=== PATIENT | male | born 1930 | race Caucasian/White ===

== ENCOUNTER → 2017-05-01 09:06 | Emergency (ER) | payer MEDICARE ==
[~2017-05-01 09:06] MED LIST: Acetaminophen TAB* 325 MG PO PRN; Ascorbic Acid TAB* 500 MG PO SCH; Aspirin EC Low Dose* 81 MG TAB.EC PO SCH; Atorvastatin* 40 MG TAB PO SCH; Cyanocobalamin TAB* 500 MCG PO SCH; Digoxin TAB* 0.125 MG PO SCH; Ferrous Sulfate TAB* 325 MG PO SCH; Finasteride TAB* 5 MG PO SCH; Folic Acid TAB* 1 MG PO SCH; Insulin GLARGINE(*) 1 UNITS UNIT SUBCUT SCH; Levothyroxine TAB* 25 MCG TAB PO SCH; Metoprolol Succinate XL TAB* 25 MG PO SCH; Multivitamins/Minerals TAB PO SCH; Omeprazole CAP* 20 MG PO SCH; Ondansetron INJ* 2 MG/ML VIAL IV PRN; Phytonadione INJ (Adult)* 10 MG/ML 1 ML AMP SUBCUT ONE; SODIUM CHLORIDE IV SCH; Spironolactone TAB* 25 MG PO SCH; Tamsulosin CAP* 0.4 MG PO SCH; VANCOMYCIN HCL IV SCH; Vancomycin Trough Check NOTE FOLLOW UP ONE; Vancomycin per Pharmacy* NOTE FOLLOW UP PRN; Vancomycin(*) 1,000 MG in NS 0.9% 250 ML* 250 ML IVPB ONE; Vancomycin(*) 1,500 MG in NS 0.9% 250 ML* 250 ML IVPB ONE; Vancomycin(*) 750 MG in NS 0.9% 250 ML* 250 ML IVPB SCH; [UNRECOGNIZED DRUG - OTHER] IV SCH
[2017-05-01 12:41] LABS: Red Blood Count 2.31 10^6/ul (4.0-5.4); Red Cell Distribution Width 24 % (10.5-15); White Blood Count 6.3 10^3/ul (3.5-10.8)
[2017-05-01 12:44] LABS: Hematocrit 23 % (42-52); Hemoglobin 7.5 g/dl (14.0-18.0); Mean Corpuscular HGB Conc 32 g/dl (31-36); Mean Corpuscular Hemoglobin 32 pg (27-31); Mean Corpuscular Volume 100 fL (80-94); Mean Platelet Volume 10 um3 (7.4-10.4)
[2017-05-01 12:45] LABS: Add Diff/Slide Review? Manual Diff Added; Comments Flag Yes
[2017-05-01 13:04] LABS: Albumin 2.4 g/dL (3.2-5.2); BUN/Creatinine Ratio 26.7 (8-20); Calcium 7.8 mg/dL (8.6-10.3); EGFR African American 90.1 (>60); Globulin 2.4 g/dL (2-4); Potassium 3.9 mmol/L (3.5-5.0); Total Bilirubin 0.7 mg/dL (0.2-1.0); Total Protein 4.8 g/dL (6.4-8.9)
[2017-05-01 13:16] LABS: Eosinophils % 3 % (0-6); Immature Granulocytes 2 % (0-9); Myelocytes % 2 % (0-1); Neutrophil % 71 % (38-83); Reactive Lymph % 2 % (0-6)
[2017-05-01 13:17] LABS: Hypochromasia 1+; Macrocytosis 1+
[2017-05-01 13:18] LABS: Polychromasia 1+
[2017-05-01 13:20] LABS: Add Path Review? YES
--- NOTE | 2017-05-01 14:21 | RAD ---
INDICATION: Hematuria COMPARISON: None TECHNIQUE: Real-time ultrasound examination of the bilateral kidneys and urinary bladder including grayscale and Doppler color flow analysis. FINDINGS: There is mild bilateral hydronephrosis worse on the right than the left. The right kidney measures 9.9 x 6.4 x 4.3 cm. At the lower pole there is an echogenic and shadowing 5 mm calcification. At the distal right ureter there is an echogenic and shadowing stone measuring just under 1 cm and greatest cephalocaudal dimension. The left kidney measures 10.2 x 5.4 x 4.2 cm. At the upper pole there is an anechoic and avascular cyst measuring 1.6 cm in greatest dimension. At the lower pole collecting system there is an 8 mm calcification. The fonseca of the urinary bladder are homogenous measuring 4 mm in thickness. Within the lumen of the bladder there is a heterogeneous echogenic mass measuring 7.2 x 3.9 x 7.6 cm exhibiting no vascularity. The Mansfield catheter balloon is incidentally noted. Normal ureteral jets are not visualized bilaterally. The mildly enlarged prostate measures 5.1 x 5.7 x 6.7 cm. IMPRESSION: 1. Mild, right worse than left, hydronephrosis. 2. At the distal right ureter there is a 1 cm calculus. 3. In the lumen of the bladder there is a mixed echogenicity avascular mass. A chronic blood clot as opposed to large calculus is favored as there is no shadowing characteristic of a renal stone. A neoplastic process is not completely excluded although there is no vascularity and the mass appears to be mobile. Direct visualization is advised.
[2017-05-01 16:36] VITALS: BP 103/48
--- NOTE | 2017-05-01 16:40 | ED ---
Saad Hollingsworth Alfonso scribed for Jason Patterson MD on 05/01/17 at 0939 . Complex/Multi-Sys Presentation - HPI Summary HPI Summary: This patient is an 87 year old M BIBA from [facility] from [facility] accompanied by son with a chief complaint of abdominal distention worse since a few hours ago. He does not have an urologist in [place]. The patient rates the pain 8/10 in severity. Symptoms aggravated by nothing. Symptoms alleviated by Mansfield catheter Patient reports urinary retention (nurse obtained 1.5 L of urine after Mansfield catheter), and hematuria. - History Of Current Complaint Time Seen by Provider: 05/01/17 09:14 Hx Obtained From: Patient Onset/Duration: Gradual Onset, Lasting Hours, Still Present Timing: Constant Severity Initially: Severe - 8/10 pain Aggravating Factor(s): nothing Alleviating Factor(s): Mansfield catheter Associated Signs And Symptoms: Positive: Other - urinary retention (nurse obtained 1.5 L of urine after Mansfield catheter), and hematuria. - Allergies/Home Medications Allergies/Adverse Reactions: Allergies Allergy/AdvReac Type Severity Reaction Status Date / Time No Known Allergies Allergy Verified 04/18/14 13:29 Home Medications: Home Medications Acetaminophen TAB* [Tylenol TAB*] 650 mg PO Q4H PRN 05/01/17 [History Confirmed 05/01/17] Atorvastatin* [Lipitor*] 40 mg PO QPM 05/01/17 [History Confirmed 05/01/17] Cyanocobalamin TAB* [Vitamin B12 TAB*] 1,000 mcg PO DAILY 05/01/17 [History Confirmed 05/01/17] Digoxin TAB* [Lanoxin TAB*] 0.125 mg PO DAILY 05/01/17 [History Confirmed ] Ferrous Sulfate TAB* 325 mg PO DAILY 05/01/17 [History Confirmed 05/01/17] Folic Acid TAB* [Folvite TAB*] 1 mg PO DAILY 05/01/17 [History Confirmed ] Insulin ASPART (NF) [Novolog (NF)] 1 - 10 units SUBCUT QID ACHS 05/01/17 [ History Confirmed 05/01/17] Insulin GLARGINE(*) [Lantus(*)] 12 units SUBCUT QAM 05/01/17 [History Confirmed 05/01/17] Levothyroxine TAB* [Synthroid TAB*] 25 mcg PO DAILY 05/01/17 [History Confirmed 05/01/17] Multivitamins/Minerals TAB* [Theragran/minerals TAB*] 1 tab PO DAILY 05/01/17 [ History Confirmed 05/01/17] Spironolactone TAB* [Aldactone TAB*] 12.5 mg PO DAILY 05/01/17 [History Confirmed 05/01/17] Tamsulosin CAP* [Flomax CAP*] 0.4 mg PO QPM 05/01/17 [History Confirmed 05/01/17 ] Vancomycin HCl in Sodium Chlor [Vancomycin Hydrochloride/ 750-0.9 mg/250Ml-%] 250 ml IV BID 05/01/17 [History Confirmed 05/01/17] Warfarin TAB(*) [Coumadin TAB(*)] 5 mg PO QPM 05/01/17 [History Confirmed ] PMH/Surg Hx/FS Hx/Imm Hx Previously Healthy: No - Sepsis due to strep pneumonia. UTI. Endocrine/Hematology History: Reports: Hx Diabetes, Hx Thyroid Disease - hypo, Hx Anemia Cardiovascular History: Reports: Hx Coronary Artery Disease, Hx Hypertension, Hx Valvular Heart Disease - Mitral valve prolapse History: Reports: Hx Benign Prostatic Hyperplasia Neurological History: Reports: Hx CVA - x2, Other Neuro Impairments/Disorders - Hemiplegia and hemiparesis Infectious Disease History: Denies: Traveled Outside the [place] in Last 30 Days - Family History Known Family History: Positive: Cardiac Disease - Social History Alcohol Use: None Hx Substance Use: No Substance Use Type: Reports: None Hx Tobacco Use: No Smoking Status (MU): Never Smoked Tobacco Review of Systems Negative: Fever Positive: Other - Abd distention Positive: hematuria, other - urinary retention All Other Systems Reviewed And Are Negative: Yes Physical Exam - Summary Physical Exam Summary: VITAL SIGNS: Reviewed. GENERAL: Patient is an elderly and nourished male who is lying comfortable in the stretcher. Patient is not in any acute respiratory distress. HEAD AND FACE: Normocephalic and atraumatic. EYES: PERRLA, EOMI x 2, No injected conjunctiva. EARS: Hearing grossly intact. Ear canals and tympanic membranes are WNL. MOUTH: Oropharynx within normal limits. NECK: Supple, trachea is midline, no adenopathy, no JVD. CHEST: Symmetric, no tenderness at palpation LUNGS: Clear to auscultation bilaterally. No wheezing or crackles. CVS: RRR, S1 and S2 present, no murmurs or gallops appreciated. ABDOMEN: Soft, non-tender. Distention, which resolved after Mansfield catheter was placed. Positive bowel sounds. No rebound no guarding, and no masses palpated. No abdominal bruit or pulsations. EXTREMITIES: FROM in all major joints, no edema, no cyanosis or clubbing. NEURO: Alert and oriented x 3. No acute neurological deficits. Speech is normal. SKIN: Dry and warm Triage Information Reviewed: Yes Vital Signs On Initial Exam: Initial Vitals Temp Pulse Resp BP Pulse Ox 98.1 F 82 16 103/56 99 05/01/17 09:37 05/01/17 09:37 05/01/17 09:37 05/01/17 09:37 05/01/17 09:37 Vital Signs Reviewed: Yes Diagnostics - Vital Signs Vital Signs Temp Pulse Resp BP Pulse Ox 05/01/17 16:35 98.1 F 81 16 103/48 99 05/01/17 14:55 79 16 114/51 98 05/01/17 12:09 82 16 111/52 99 05/01/17 09:37 98.1 F 82 16 103/56 99 - Laboratory Lab Results: Lab Results 05/01/17 05/01/17 05/01/17 Range/Units 09:57 10:41 12:28 WBC 6.3 (3.5-10.8) 10^3/ul RBC 2.31 L (4.0-5.4) 10^6/ul Hgb 7.5 L (14.0-18.0) g/dl Hct 23 L (42-52) % MCV 100 H (80-94) fL MCH 32 H (27-31) pg MCHC 32 (31-36) g/dl RDW 24 H (10.5-15) % Plt Count 253 (150-450) 10^3/ul MPV 10 (7.4-10.4) um3 Immature Gran % (Auto) 2 (0-9) % Absolute Neuts (auto) 4.6 (1.5-7.7) 10^3/ul Absolute Lymphs (auto) 1.4 (1.0-4.8) 10^3/ul Absolute Monos (auto) 0.1 (0-0.8) 10^3/ul Absolute Eos (auto) 0.2 (0-0.6) 10^3/ul Absolute Basos (auto) 0 (0-0.2) 10^3/ul Absolute Nucleated RBC Not Reportable Neutrophils % 71 (38-83) % Lymphocytes % 21 L (25-47) % Reactive Lymphs % 2 (0-6) % Monocytes % 1 (0-13) % Eosinophils % 3 (0-6) % Myelocytes % 2 H (0-1) % Normal RBC Morphology Not Reportable Polychromasia 1+ Hypochromasia 1+ Macrocytosis 1+ Elliptocytes 1+ Hem Pathologist Commnt Pending INR (Anticoag Therapy) (0.89-1.11) Sodium (133-145) mmol/L Potassium (3.5-5.0) mmol/L Chloride (101-111) mmol/L Carbon Dioxide (22-32) mmol/L Anion Gap (2-11) mmol/L BUN (6-24) mg/dL Creatinine (0.67-1.17) mg/dL Est GFR ( Amer) (>60) Est GFR (Non-Af Amer) (>60) BUN/Creatinine Ratio (8-20) Glucose (70-100) mg/dL Calcium (8.6-10.3) mg/dL Total Bilirubin (0.2-1.0) mg/dL AST (13-39) U/L ALT (7-52) U/L Alkaline Phosphatase (34-104) U/L Total Protein (6.4-8.9) g/dL Albumin (3.2-5.2) g/dL Globulin (2-4) g/dL Albumin/Globulin Ratio (1-3) Urine Color Red A Red A Urine Appearance Bloody Bloody Urine pH (5-9) Ur Specific Willard 1.016 (1.010-1.030) Urine Protein (Negative) Urine Ketones (Negative) Urine Blood (Negative) Urine Nitrate (Negative) Urine Bilirubin (Negative) Urine Urobilinogen (Negative) Ur Leukocyte Esterase (Negative) Urine WBC (Auto) Trace(0-5/hpf) (Absent) Urine RBC (Auto) 3+(>10/hpf) H (Absent) Urine Glucose (Negative) Urine Ascorbic Acid (Negative) Blood Type Antibody Screen 05/01/17 05/01/17 05/01/17 Range/Units 12:28 12:28 12:28 WBC (3.5-10.8) 10^3/ul RBC (4.0-5.4) 10^6/ul Hgb (14.0-18.0) g/dl Hct (42-52) % MCV (80-94) fL MCH (27-31) pg MCHC (31-36) g/dl RDW (10.5-15) % Plt Count (150-450) 10^3/ul MPV (7.4-10.4) um3 Immature Gran % (Auto) (0-9) % Absolute Neuts (auto) (1.5-7.7) 10^3/ul Absolute Lymphs (auto) (1.0-4.8) 10^3/ul Absolute Monos (auto) (0-0.8) 10^3/ul Absolute Eos (auto) (0-0.6) 10^3/ul Absolute Basos (auto) (0-0.2) 10^3/ul Absolute Nucleated RBC Neutrophils % (38-83) % Lymphocytes % (25-47) % Reactive Lymphs % (0-6) % Monocytes % (0-13) % Eosinophils % (0-6) % Myelocytes % (0-1) % Normal RBC Morphology Polychromasia Hypochromasia Macrocytosis Elliptocytes Hem Pathologist Commnt INR (Anticoag Therapy) 5.78 H* (0.89-1.11) Sodium 133 (133-145) mmol/L Potassium 3.9 (3.5-5.0) mmol/L Chloride 102 (101-111) mmol/L Carbon Dioxide 28 (22-32) mmol/L Anion Gap 3 (2-11) mmol/L BUN 27 H (6-24) mg/dL Creatinine 1.01 (0.67-1.17) mg/dL Est GFR ( Amer) 90.1 (>60) Est GFR (Non-Af Amer) 70.0 (>60) BUN/Creatinine Ratio 26.7 H (8-20) Glucose 107 H (70-100) mg/dL Calcium 7.8 L (8.6-10.3) mg/dL Total Bilirubin 0.70 (0.2-1.0) mg/dL AST 24 (13-39) U/L ALT 23 (7-52) U/L Alkaline Phosphatase 58 (34-104) U/L Total Protein 4.8 L (6.4-8.9) g/dL Albumin 2.4 L (3.2-5.2) g/dL Globulin 2.4 (2-4) g/dL Albumin/Globulin Ratio 1.0 (1-3) Urine Color Urine Appearance Urine pH (5-9) Ur Specific Willard (1.010-1.030) Urine Protein (Negative) Urine Ketones (Negative) Urine Blood (Negative) Urine Nitrate (Negative) Urine Bilirubin (Negative) Urine Urobilinogen (Negative) Ur Leukocyte Esterase (Negative) Urine WBC (Auto) (Absent) Urine RBC (Auto) (Absent) Urine Glucose (Negative) Urine Ascorbic Acid (Negative) Blood Type O Negative Antibody Screen Negative Result Diagrams: 05/01/17 12:28 05/01/17 12:28 Lab Statement: Any lab studies that have been ordered have been reviewed, and results considered in the medical decision making process. - Additional Comments Diagnostic Additional Comments: US Abdomen / Bladder reveals, per radiologist, 1. Mild, right worse than left, hydronephrosis. 2. At the distal right ureter there is a 1 cm calculus. 3. In the lumen of the bladder there is a mixed echogenicity avascular mass. A chronic blood clot as opposed to large calculus is favored as there is no shadowing characteristic of a renal stone. A neoplastic process is not completely excluded although there is no vascularity and the mass appears to be mobile. Direct visualization is advised. ED physician has reviewed this radiology report and agrees. Complex Multi-Symp Course/Dx Assessment/Plan: This patient is an 87 year old M BIBA from [facility] from [facility] accompanied by son with a chief complaint of abdominal distention worse since a few hours ago. He does not have an urologist in [place]. The patient rates the pain 8/10 in severity. Symptoms aggravated by nothing. Symptoms alleviated by Mansfield catheter Patient reports urinary retention (nurse obtained 1.5 L of urine after Mansfield catheter), and hematuria. US Abdomen / Bladder reveals, per radiologist, 1. Mild, right worse than left, hydronephrosis. 2. At the distal right ureter there is a 1 cm calculus. 3. In the lumen of the bladder there is a mixed echogenicity avascular mass. A chronic blood clot as opposed to large calculus is favored as there is no shadowing characteristic of a renal stone. A neoplastic process is not completely excluded although there is no vascularity and the mass appears to be mobile. Direct visualization is advised. ED physician has reviewed this radiology report and agrees. Consulted Dr. 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 Consulted Dr. Robb (hospitalist) at 1420 and she agrees to admit. Test results show anemia, and INR increased for which he was given vitamin K. Urine unable to test due to gerald hematuria. Dr. Robb (hospitalist) who recommends to not give FAPs due to a CVA one month ago. Also, we discussed the case with Dr. Beavers after the US and he recommends the patient is at increase risk therefore he is unable to treat at this facility, therefore, he recommends for the patient to be transferred to [facility]. I Consulted Dr. Bronson ([facility]) at 1616 who agrees to accept the patient for transfer. The patient is hemodynamically stable, alert and oriented x3. He was given 1 dose of his vancomycin infusion. The patient is agreeable with this plan. - Diagnoses Provider Diagnoses: Hematuria in coumadin, Symptomatic anemia, Ureterolithiasis, Urinary retention - Physician Notifications Discussed Care Of Patient With: Al Ac Time Discussed With Above Provider: 12:02 Instructed by Provider To: Other - Consulted Dr. Ac (urologist) at 1202 regarding the patients case and he will consult. Consulted Dr. Robb ( hospitalist) at 1420 and she agrees to admit. Consulted Dr. Bronson ([facility]) at 1616 who agrees to accept the patient for transfer. Discharge - Discharge Plan Condition: Stable Disposition: TRANS HIGHER LVL OF CARE FAC Referrals: Kian Jimenez MD [Primary Care Provider] - Al Ac MD [Medical Doctor] - The documentation as recorded by the Saad abdul Alfonso accurately reflects the service I personally performed and the decisions made by , Jason Patterson MD.
--- NOTE | 2017-05-01 20:20 | HP ---
CC: Dr. Kian Jimenez; Raven Jones MD HISTORY AND PHYSICAL: DATE OF ADMISSION: 05/01/17 TIME OF EVALUATION: 2:20 p.m. PRIMARY CARE PROVIDER: Dr. Kian Jimenez. CHIEF COMPLAINT: Abdominal pain. HISTORY OF PRESENT ILLNESS: Mr. Concepcion is an 87-year-old male with a somewhat complex past medical history that includes type 2 diabetes, presumed atrial fibrillation, recent CVA, recent septicemia due to Streptococcus pneumoniae, BPH , anemia, hypothyroidism, mitral valve prolapse who was referred to the emergency room due to abdominal pain. The patient's history goes back to early March when he was admitted to [facility]. He had urinary retention, required a Mansfield catheter and was discharged to their rehab. He was transferred back to the hospital where he was diagnosed with CVA and also septicemia. Records are not available at this time and the history is obtained from the patient and his son-in-law at bedside. They were already in the process of moving the patient from [facility] to [facility] in [place] as his had dementia and had recently moved to that facility, and as the patient became ill he was not able to provide the care he usually provided to her. He initially went to rehab at [place], but family decided to transfer him to rehab at [facility], so he could be closer to his . He has been at [facility] for 2 weeks and he states that he was doing well. His Mansfield catheter was removed and initially he had no issues with his urine, but yesterday he noticed that he was having difficulty urinating and today he was unable to void and developed significant abdominal pain. In the emergency room , a Mansfield catheter was placed and 1.5 L of urine with blood and clots was drained. The patient states significant relief after the Mansfield catheter was placed and his only complaint at this time is hunger. PAST MEDICAL HISTORY: 1. CVA. 2. Recent episode of sepsis secondary to Streptococcus pneumoniae. 3. Urinary tract infection. 4. Anemia. 5. Hypothyroidism. 6. Type 2 diabetes. 7. Mitral valve prolapse. 8. BPH. MEDICATIONS: 1. Acetaminophen 650 mg p.o. q.4 hours p.r.n. pain or fever. 2. Ascorbic acid 500 mg p.o. daily. 3. Aspirin 81 mg p.o. daily. 4. Atorvastatin 40 mg p.o. q.p.m. 5. Cyanocobalamin 1000 mcg p.o. daily. 6. Digoxin 0.125 mg p.o. daily. 7. Ferrous sulfate 325 mg p.o. daily. 8. Finasteride 5 mg p.o. daily. 9. Folic acid 1 mg p.o. daily. 10. Insulin aspart sliding scale 1 to 10 units subcutaneously 4 times a day a.c., h.s. 11. Lantus 12 units subcutaneously q.a.m. 12. Levothyroxine 25 mcg p.o. daily. 13. Metoprolol succinate 25 mg p.o. daily. 14. Multivitamin 1 tablet p.o. daily. 15. Pantoprazole 40 mg p.o. at bedtime. 16. Spironolactone 12.5 mg p.o. daily. 17. Tamsulosin 0.4 mg p.o. at bedtime. 18. Vancomycin 750 mg IV q.12 hours. 19. Warfarin 5 mg p.o. q.p.m. ALLERGIES: No known drug allergies. FAMILY HISTORY: Reviewed and noncontributory. SOCIAL HISTORY: No history of tobacco, alcohol, or drug use. Surrogate decision maker is his son, Gabriel Concepcion; phone number is [phone]. REVIEW OF SYSTEMS: A 14-point review of systems was performed and all the pertinent negative and positive findings are in the HPI. PHYSICAL EXAMINATION GENERAL: The patient is an elderly male lying in the ER stretcher, in no acute distress. VITAL SIGNS: Temperature 98.1, heart rate is 82, respiratory rate 16, oxygen saturation is 99% on room air, blood pressure is 111/52. HEENT: Pupils are equal. Moist mucous membranes. CHEST: Breath sounds present bilaterally with no added sounds. CVS: Normal S1, S2. Regular rate and rhythm. ABDOMEN: Soft, nontender, and nondistended. Bowel sounds are present. EXTREMITIES: No edema. NEURO: He is alert, oriented x3 with right hemiparesis. LABORATORY AND IMAGING DATA: The patient had a CBC that showed a WBC of 6.3, hemoglobin of 7.5, hematocrit of 23, platelets of 253,000 with 71% neutrophils. INR is 5.7. Chemistry showed sodium of 133, potassium of 3.9, chloride of 102, bicarb of 28, BUN of 27, creatinine of 1, glucose of 107 with calcium of 7.8. LFTs are normal. Urinalysis showed hematuria. Abdomen and bladder ultrasound showed mild right worse than left hydronephrosis. At the distal right ureter there is a 1 cm calculus. In the lumen of the bladder there is a mixed echogenicity avascular mass. A chronic blood clot as opposed to large calculus is favored as there is no shadowing characteristic of a renal stone. A neoplastic process is not completely excluded , although there is no vascularity and the mass appears to be mobile. ASSESSMENT AND PLAN: Mr. Johnston is an 87-year-old male with a past medical history of recent cerebrovascular accident, sepsis due to streptococcus pneumoniae, anemia, hypothyroidism, type 2 diabetes, mitral valve prolapse, benign prostatic hyperplasia that presented to the emergency room with complaints of abdominal pain, found to have urinary retention and hematuria. 1. Urinary retention/hematuria. Likely secondary to benign prostatic hyperplasia and supratherapeutic INR. The patient will be admitted as observation to the medical floor. For now, he is going to receive vitamin K and we are going to try to keep his INR between 2 and 3. I am going to discuss the case with Urology, but unless an emergency, I do not think a surgical procedure should be performed at this time due to his recent cerebrovascular accident. I am going to obtain records from [facility] to clarify exactly the timeline of his cerebrovascular accident, arrhythmia, and other findings before deeming the patient optimized for surgery. 2. Anemia. I suspect acute blood loss and suspect there is a component of blood loss. If the patient drops below a hemoglobin of 7, we will transfuse him , but at this point I believe we can just monitor his H and H. 3. Type 2 diabetes. We will check his fingersticks a.c./ h.s. and continue Lantus and Lispro sliding scale. 4. Benign prostatic hyperplasia. We will continue finasteride. 5. History of recent cerebrovascular accident. We will continue his aspirin, atorvastatin for now. Hold warfarin, but plan to resume it as soon as his INR is between 2 and 3. 6. History of recent septicemia. We will continue vancomycin as prescribed. 7. Hypothyroidism. We will continue levothyroxine. 8. DVT prophylaxis. Pharmacological prophylaxis is contraindicating in the setting of bleeding and supratherapeutic INR. The patient will have SCDs. 9. Code status is DNR. TIME SPENT: Approximately 70 minutes were spent with the patient and family interview, medical records review, physical examination to complete this admission; more than half of this time spent [id number] with the patient and coordination of care. [id number]/[facility] #: [id number] MTDD
--- NOTE | 2017-05-01 20:36 | CONS ---
CONSULTATION REPORT: DATE: 05/01/17 - EMERGENCY DEPT ADDENDUM: After reviewing the patient's abdomen ultrasound with Urology (Dr. Ac), decision was made that the best course of care for this patient would be transfer to a tertiary center. The patient's history started with a UTI and there is suspicion that his stone is likely playing a role on his septicemia. Unfortunately, records from [facility] are still not yet available and now that his ultrasound showed this distal right ureter 1-cm calculus with hydronephrosis, Dr. Ac recommends surgery. Also, he has this bladder lesion that could represent only a blood clot, but could also be a tumor. The major concern is that the patient had recent CVA and we will prefer not to stop his anticoagulation, but in the setting of urgency like this, this may need to be discontinued. His INR reverted with FFPs and surgical procedure pursued. Dr. Ac feels that the patient would be a very high risk candidate for procedure in this facility and recommends transfer to a tertiary center. These recommendations were relayed to the emergency room provider, Dr. Pattersno, who will make arrangements for transfer. The patient and his son-in-law were updated at bedside. [id number]/[facility] #: [id number] [facility] HOSPITALGrace
== END | disposition short-term general hospital (02) ==
LOC: ED 09:06 → MED 14:21 → UNDOADMOB 14:21
DX: N13.2 Hydronephrosis with renal and ureteral calculous obstruction (principal); R33.9 Retention of urine, unspecified; R31.9 Hematuria, unspecified; D64.9 Anemia, unspecified; Z87.440 Personal history of urinary (tract) infections; E11.9 Type 2 diabetes mellitus without complications; Z79.4 Long term (current) use of insulin; E03.9 Hypothyroidism, unspecified; I25.10 Atherosclerotic heart disease of native coronary artery without angina pectoris; I10 Essential (primary) hypertension; I34.1 Nonrheumatic mitral (valve) prolapse; Z79.01 Long term (current) use of anticoagulants; N40.0 Benign prostatic hyperplasia without lower urinary tract symptoms; Z86.73 Personal history of transient ischemic attack (TIA), and cerebral infarction without residual deficits
CPT/HCPCS: 36415; 51702; 76770; 80053; 81003; 85025; 85060; 85610; 86850; 86900; 86901; 99284; J3370; J3430

== ENCOUNTER 2017-07-11 09:17 | Inpatient (IN) | payer MEDICARE, BC ==
[2017-07-11 10:30] LABS: Hematocrit 29 % (42-52); Hemoglobin 9.2 g/dl (14.0-18.0); Mean Corpuscular HGB Conc 32 g/dl (31-36); Mean Corpuscular Hemoglobin 31 pg (27-31); Mean Corpuscular Volume 96 fL (80-94); Mean Platelet Volume 10 um3 (7.4-10.4); Platelet Count 210 10^3/ul (150-450); Red Blood Count 2.98 10^6/ul (4.0-5.4); Red Cell Distribution Width 22 % (10.5-15); White Blood Count 13.7 10^3/ul (3.5-10.8)
[2017-07-11 10:47] LABS: EGFR Non-African American 52.3 (>60)
[2017-07-11 10:53] LABS: ABS Basophils 0.1 10^3/ul (0-0.2); ABS Eosinophils 0 10^3/ul (0-0.6); ABS Lymphocytes 0.8 10^3/ul (1.0-4.8); ABS Monocytes 0.2 10^3/ul (0-0.8); ABS Neutrophils 12.7 10^3/ul (1.5-7.7); ABS Nucleated RBC 0 10^3/ul; Eosinophil % 0 % (0-6); Lymphocyte % 5.8 % (25-47); Nucleated Red Blood Cells % 0.2
--- NOTE | 2017-07-11 10:54 | ED ---
HPI Febrile Illness - HPI Summary HPI Summary: 87 male DOREEN, resident from [place], sent in due to patient "not acting himself" being confused at times and not eating his breakfast this morning. Also due to finding of blood in urine/depends upon changing and fever of 100.9F Patient is without complaint. Per [facility] tin worker staff and EMS patient was not as oriented as he typically is. No other complaints at this time. PAtient is without complaint when asked. Does admit to a cough with some production at times. Although altered and poor historian. PMHx significant for anticaogulation , a fib, CVA, HTN, GERD, hematuria, anemia and type II diabetes. Step daughter later arrived and informed us that patient had a prostate surgery back in April of 2017 after being transferred to [facility], and also was informed later on by nursing staff patient fell when trying to pull his pants up while in the bathroom however was alert oriented and denied injuries. His "not acting himself, lethargy and fever" began hours after fall. Patient is taking Eliquis. - History of Current Complaint Chief Complaint: EDGeneral Time Seen by Provider: 07/11/17 09:41 Hx Obtained From: Patient, Family/Broadcast Transmitter Operator - step daughter, nursing staff at [facility], EMS Hx From Patient Unobtainable Due To: Altered Mental Status Onset/Duration: Started Hours Ago Time of Onset: 09:00 Timing: Constant Current Severity: None Pain Intensity: 0 Pain Scale Used: 0-10 Numeric Aggravating Factors: Nothing Alleviating Factors: Nothing Associated Signs and Symptoms: Altered Mental Status, Cough - Allergy/Home Medications Allergies/Adverse Reactions: Allergies Allergy/AdvReac Type Severity Reaction Status Date / Time No Known Allergies Allergy Verified 04/18/14 13:29 Home Medications: Home Medications Apixaban* [Eliquis*] 2.5 mg PO BID 07/11/17 [History Confirmed 07/11/17] Artificial Tears* 15 ML BTL [Polyvinyl Alcohol 1.4% OPTH*] 1 drop BOTH EYES TID PRN 07/11/17 [History Confirmed 07/11/17] Atorvastatin* [Lipitor*] 10 mg PO BEDTIME 07/11/17 [History Confirmed 07/11/17] Cetirizine* [ZyrTEC 10 MG TAB*] 10 mg PO DAILY 07/11/17 [History Confirmed 07/11] Chlorhexidine MOUTHWASH 0.12%* [Peridex Mouth Wash 0.12%*] 15 ml SWISH SPIT BID 07/11/17 [History Confirmed 07/11/17] Gabapentin CAP(*) [Neurontin 100 mg CAP(*)] 100 mg PO BID 07/11/17 [History Confirmed 07/11/17] Insulin Detemir (NF) [Levemir (NF)] 12 unit SUBCUT QAM 07/11/17 [History Confirmed 07/11/17] Levothyroxine TAB* [Synthroid TAB*] 100 mcg PO DAILY 07/11/17 [History Confirmed 07/11/17] Melatonin (NF) 1 mg PO BEDTIME 07/11/17 [History Confirmed 07/11/17] Omeprazole CAP* [Prilosec CAP* 20 MG] 20 mg PO DAILY 07/11/17 [History Confirmed 07/11/17] metFORMIN* [Glucophage 500 MG TAB *] 500 mg PO DAILY 07/11/17 [History Confirmed 07/11/17] PMH/Surg Hx/FS Hx/Imm Hx Endocrine/Hematology History: Reports: Hx Anticoagulant Therapy - eliquis, Hx Diabetes, Hx Thyroid Disease - hypo, Hx Anemia Cardiovascular History: Reports: Hx Atrial Fibrillation, Hx Coronary Artery Disease, Hx Hypertension, Hx Valvular Heart Disease - Mitral valve prolapse History: Reports: Hx Benign Prostatic Hyperplasia Neurological History: Reports: Hx CVA - x2, Other Neuro Impairments/Disorders - Hemiplegia and hemiparesis - Surgical History Surgery Procedure, Year, and Place: prostate, cardiac, bladder stent 2016 - Immunization History Immunizations Up to Date: Yes Infectious Disease History: No Infectious Disease History: Denies: Traveled Outside the [place] in Last 30 Days - Family History Known Family History: Positive: Cardiac Disease - Social History Alcohol Use: None Hx Substance Use: No Substance Use Type: Reports: None Hx Tobacco Use: No Smoking Status (MU): Never Smoked Tobacco Review of Systems - ROS Summary Review of Systems Summary: obtained per caretakers/EMS Positive: Fever Cardiovascular: Negative Respiratory: Negative Gastrointestinal: Negative Positive: hematuria Neurological: Other - lethargy All Other Systems Reviewed And Are Negative: Yes Physical Exam Triage Information Reviewed: Yes Vital Signs On Initial Exam: Initial Vitals Temp Pulse Resp BP Pulse Ox 100.7 F 107 22 88/39 98 07/11/17 09:17 07/11/17 09:17 07/11/17 09:17 07/11/17 09:17 07/11/17 09:17 fever, tachycardia, hypotension noted given fluids, tylenol and rocephin BP improved to 110/92, 107/42, temp 99F and later became hypotensive and febrile again Vital Signs Reviewed: Yes Completion Of Physical Exam Limited Due To: Altered Mental Status - alert and oriented x 2 Appearance: Positive: Well-Appearing, No Pain Distress, Well-Nourished Skin: Positive: Warm - to touch, Skin Color Reflects Adequate Perfusion, Dry, Other - bruising, old, noted to abdomen from previous heparin injections after surgery a few months ago (per patient). Negative: Cold, Cyanosis @, Jaundiced, Erythema @ Head/Face: Positive: Normal Head/Face Inspection. Negative: Scalp - no hematoma Eyes: Positive: Normal, EOMI, USHA, Conjunctiva Clear ENT: Positive: Normal ENT inspection, Hearing grossly normal, Pharynx normal Neck: Positive: Supple, Nontender Respiratory/Lung Sounds: Positive: Clear to Auscultation, Breath Sounds Present. Negative: Rales, Rhonchi, Wheezes Cardiovascular: Positive: Normal, RRR, Pulses are Symmetrical in both Upper and Lower Extremities. Negative: Murmur, Rub Abdomen Description: Positive: Nontender, No Organomegaly. Negative: Soft - firm to palpation, Bruit, Distended, Guarding Male Genital Exam: Positive: normal genitalia - other than discharge and erythema surrounding urethral orifice of uncircumsized penis, other - rectal exam preformed and normal upon examination. Negative: scrotum tenderness (R), scrotum tenderness (L), testicular tenderness (R), testicular tenderness (L) Musculoskeletal: Positive: Normal, Strength/ROM Intact Neurological: Positive: Normal, Sensory/Motor Intact. Negative: Alert, Oriented to Person Place, Time - alert, oriented to person, place (x2) - Norm Coma Scale Best Eye Response: 4 - Spontaneous Best Motor Response: 6 - Obeys Commands Best Verbal Response: 5 - Oriented Coma Scale Total: 15 Diagnostics - Vital Signs Vital Signs Temp Pulse Resp BP Pulse Ox 07/11/17 09:17 100.7 F 107 22 88/39 98 - Laboratory Lab Results: Lab Results 01/07/11/17 07/11/17 Range/Units 10:20 10:20 10:20 WBC 13.7 H (3.5-10.8) 10^3/ul RBC 2.98 L (4.0-5.4) 10^6/ul Hgb 9.2 L (14.0-18.0) g/dl Hct 29 L (42-52) % MCV 96 H (80-94) fL MCH 31 (27-31) pg MCHC 32 (31-36) g/dl RDW 22 H (10.5-15) % Plt Count 210 (150-450) 10^3/ul MPV 10 (7.4-10.4) um3 Neut % (Auto) Pending Lymph % (Auto) Pending Childress % (Auto) Pending Eos % (Auto) Pending Baso % (Auto) Pending Absolute Neuts (auto) Pending Absolute Lymphs (auto) Pending Absolute Monos (auto) Pending Absolute Eos (auto) Pending Absolute Basos (auto) Pending Absolute Nucleated RBC Pending Nucleated RBC % Pending Sodium 136 (133-145) mmol/L Potassium 4.3 (3.5-5.0) mmol/L Chloride 104 (101-111) mmol/L Carbon Dioxide 25 (22-32) mmol/L Anion Gap 7 (2-11) mmol/L BUN 32 H (6-24) mg/dL Creatinine 1.30 H (0.67-1.17) mg/dL Est GFR ( Amer) 67.3 (>60) Est GFR (Non-Af Amer) 52.3 (>60) BUN/Creatinine Ratio 24.6 H (8-20) Glucose 198 H (70-100) mg/dL Lactic Acid 2.1 H* (0.5-2.0) mmol/L Calcium 8.7 (8.6-10.3) mg/dL Total Bilirubin 0.70 (0.2-1.0) mg/dL AST 34 (13-39) U/L ALT 26 (7-52) U/L Alkaline Phosphatase 84 (34-104) U/L Troponin I Pending Total Protein 6.4 (6.4-8.9) g/dL Albumin 2.9 L (3.2-5.2) g/dL Globulin 3.5 (2-4) g/dL Albumin/Globulin Ratio 0.8 L (1-3) Result Diagrams: 07/11/17 10:20 07/11/17 10:20 Lab Statement: Any lab studies that have been ordered have been reviewed, and results considered in the medical decision making process. - Radiology chest Xray Interpretation: No Acute Changes - NO ACTIVE CARDIOPULMONARY DISEASE. Radiology Interpretation Completed By: Radiologist - and myself - CT brain CT Interpretation: No Acute Changes - 1. NO ACUTE INTRACRANIAL PATHOLOGY. 2. DIFFUSE INVOLUTIONAL CHANGE WITH CHRONIC SMALL VESSEL ISCHEMIC CHANGES. 3. ENCEPHALOMALACIA CONSISTENT WITH REMOTE LEFT FRONTAL INFARCT. 4. AIR-FLUID LEVEL WITHIN the right maxillary sinus. In the correct clinical setting this may represent acute sinusitis CT Interpretation Completed By: Radiologist abd/pelvis CT Interpretation: Positive (See Comments) - 1. There are multiple bilateral punctate calcifications in the collecting systems. There is a mild degree of right-sided hydronephrosis in the presence of a right ureteral stent and a coarse calcification in the distal right ureter measuring 11 mm in greatest dimension. 2. Urinary bladder is mostly decompressed in the presence of a Mansfield catheter making the fonseca appear thickened. There is air in the nondependent lumen of the bladder likely related to recent instrumentation. 3. Images of the lung bases could represent early changes of interstitial lung disease or pulmonary edema. 3. Additional chronic and degenerative changes described in the body the report. CT Interpretation Completed By: Radiologist - EKG EKG Cardiac Rate: NL EKG Rhythm: Sinus Tachycardia ST Segment: Normal - minimal ST elevation lateral leads Ectopy: None EKG Interpretation: borderline repol abnormality, sinus tachy, no STMEI, RAD EKG Comparison: No Significant Change Re-Evaluation - Re-Evaluation First Eval Re-Evaluation Time: 12:00 Change: Worse - hypotensive, febrile, waiting on second liter of fluid and will give more tylenol. spoke with Dr Rivera about + stool occult blood for possible GI bleed and Dr Patterson about case Second Eval Re-Evaluation Time: 13:30 Change: Worse - still hypotensive, fever improved. spoke with Dr Jones who wanted a renal ultrasound and will await admission pending results in case of urology consult due to previous visit and history of transfer due to complications, given rochephin for urosepsis, spoke with Dr Patterson who took over case Course/Dx - Course Course Of Treatment: labs, urinalysis obtained, given 2L fluids, rocephin and tylenol. closely monitored. chest xray obtained and negative for acute cardiopulmonary disease. stool occult blood obtained due to patient taking eliquis and positive, Dr Rivera was consulted who agreed to consult patient. Spoke with Dr Patterson about case. Patient was without complaint and altered however alert and responsive throughout stay. Labs and urinalysis was delayed due to difficulty with initiating IV access after multiple attempts by different nursing staff. Elevated WBC with left shift, elevated lactic acid, anemia and elevated glucose, troponin. Urinalysis significant for 3+ blood and UTI. EKG obtained, sinus tachycardia @ 103bpm, no stemi. Spoke with Dr Jones for admission for urosepsis who requested renal US due to extensive history of complications previously seen for. Mansfield catheter was placed. Once additional history was given by patient's step daughter and later again by daughter Ct Brain obtained as patient did have a fall and is on eliquis. Patient became more hypotensive and afebrile and urosepsis protocol was initiated, at which this time Dr Patterson took over the case Ct abd/pelvis and US obtained. - Febrile Illness Differential Diagnoses: Bacteremia, Pyelonephritis, Other: - urosepsis, UTI, Gi bleed - Diagnoses Provider Diagnoses: GI bleed, UTI (urinary tract infection), Sepsis - Provider Notifications Discussed Care Of Patient With: Dr Patterson, Dr Jones, Dr Rivera - Dr Patterson took over the case, Robert Rivera consult Time Discussed With Above Provider: 11:50 Instructed by Provider To: Admit As Inpatient Discharge - Discharge Plan Condition: Stable Disposition: OTHER Discharge Disposition Comment: Dr Patterson took over case, signed out to Dr Patterson Referrals: Kian Jimenez MD [Primary Care Provider] -
--- NOTE | 2017-07-11 11:08 | RAD ---
HISTORY: Febrile, rule out infection COMPARISONS: None VIEWS: 2: Frontal and lateral views of the chest. FINDINGS: CARDIOMEDIASTINAL SILHOUETTE: A prosthetic heart valve is noted. ASIA: The asia are normal. PLEURA: The costophrenic angles are sharp. No pleural abnormalities are noted. LUNG PARENCHYMA: The lungs are clear. ABDOMEN: The upper abdomen is clear. There is no subphrenic gas. BONES AND SOFT TISSUES: The patient is status post median sternotomy. OTHER: None. IMPRESSION: NO ACTIVE CARDIOPULMONARY DISEASE.
[2017-07-11] MEDS ORDERED: Acetaminophen TAB* 325 MG PO ONE ×2 (11:15→13:44)
[2017-07-11 11:18] LABS: INR 1.46 (0.77-1.02)
[2017-07-11 12:03] LABS: Urine Appearance Turbid; Urine Blood 3+ (Negative); Urine Color Yellow; Urine Ketones Negative (Negative); Urine Protein 2+(100 mg/dL) (Negative); Urine Specific Gravity 1.012 (1.010-1.030); Urine Urobilinogen Negative (Negative)
[2017-07-11] MEDS: NS 0.9% 1000 ML* 2,000 ML IV ONE ×2 (12:35→13:39)
[2017-07-11] MEDS ORDERED: cefTRIAXone(*) 1 GM in NS 0.9% 50 ML* 50 ML IVPB ONE (13:22)
--- NOTE | 2017-07-11 15:49 | RAD ---
HISTORY: Syncope COMPARISONS: None TECHNIQUE: Multiple contiguous axial CT scans were obtained of the head without intravenous contrast. FINDINGS: HEMORRHAGE/INFARCT: There is no hemorrhage or acute infarct. MASSES/SHIFT: There is no mass or shift. EXTRA-AXIAL SPACES: There are no extra-axial fluid collections. SULCI AND VENTRICLES: There is diffuse and proportional enlargement of the sulci and ventricles. CEREBRUM: There is hypoattenuation of the periventricular and subcortical white matter. There is left frontal encephalomalacia consistent with remote infarct. BRAINSTEM: There are no focal parenchymal abnormalities. CEREBELLUM: There are no focal parenchymal abnormalities. VESSELS: There is calcification of the cavernous segments of the internal carotid arteries bilaterally. PARANASAL SINUSES: There is air-fluid level within the right maxillary sinus. ORBITS: The orbits are unremarkable. BONES AND SOFT TISSUE: No bone or soft tissue abnormalities are noted. OTHER: None IMPRESSION: 1. NO ACUTE INTRACRANIAL PATHOLOGY. 2. DIFFUSE INVOLUTIONAL CHANGE WITH CHRONIC SMALL VESSEL ISCHEMIC CHANGES. 3. ENCEPHALOMALACIA CONSISTENT WITH REMOTE LEFT FRONTAL INFARCT. 4. AIR-FLUID LEVEL WITHIN the right maxillary sinus. In the correct clinical setting this may represent acute sinusitis
[2017-07-11] MEDS ORDERED: NS 0.9% 1000 ML* 1,000 ML IV ONE ×2 (16:11→17:19)
--- NOTE | 2017-07-11 16:17 | RAD ---
CLINICAL HISTORY: Syncope, abdominal pain and hematuria COMPARISON: None TECHNIQUE: Noncontrast CT examination of the abdomen and pelvis from the lung bases through the initial tuberosities. FINDINGS: VISUALIZED LUNG BASES: There are hypoventilatory changes at the bilateral lung bases with pleural base densities and parenchymal thickening. There is no large pleural effusion. There is a mild degree of cardiomegaly with coarse calcification at the mitral valve. ABDOMEN AND PELVIS: Evaluation of the solid organs and vasculature is limited without intravenous contrast. The liver, spleen, pancreas and adrenal glands are grossly normal in appearance. The gallbladder is normal. There are multiple nonobstructing calculi in the left kidney mostly conglomerating at the lower pole collecting system measuring up to 4 mm in greatest dimension. There is no left-sided hydronephrosis. There are multiple calcifications in the right kidney not exceeding 3 mm in greatest dimension. There is a [id number] degree of right-sided hydronephrosis. A ureteral stent is in place. At the distal right ureter there is a coarse calcification measuring 8 mm in greatest axial dimension and up to 11 mm in greatest cephalocaudal dimension (axial image 120 and coronal image 42). There is a Mansfield catheter in place. There is gas in the nondependent portion of the urinary bladder likely related to instrumentation. The urinary bladder is mostly collapsed which makes the bladder fonseca appear thickened. There are scattered calcifications at the urinary trigone likely representing small calculi. Evaluation of the gastrointestinal tract is limited without oral contrast. The small and large bowel are not distended. There is no gross retroperitoneal or mesenteric lymphadenopathy. The pelvic viscera is normal in appearance. The abdominal aorta and iliac arteries are normal in course and diameter. Degenerative changes include multilevel loss of intervertebral disc height involving the lower thoracic and lumbar spine and multilevel vacuum disc phenomenon.There are no sinister bone lesions. IMPRESSION: 1. There are multiple bilateral punctate calcifications in the collecting systems. There is a mild degree of right-sided hydronephrosis in the presence of a right ureteral stent and a coarse calcification in the distal right ureter measuring 11 mm in greatest dimension. 2. Urinary bladder is mostly decompressed in the presence of a Mansfield catheter making the fonseca appear thickened. There is air in the nondependent lumen of the bladder likely related to recent instrumentation. 3. Images of the lung bases could represent early changes of interstitial lung disease or pulmonary edema. 3. Additional chronic and degenerative changes described in the body the report.
[2017-07-11] MEDS ORDERED: Hydrocortisone INJ* 100 MG VIAL IM ONE (16:44)
[2017-07-11] MEDS ORDERED: Norepinephrine 16MCG/ML IVPRE* 4,000 MCG/250 ML BAG IV SCH ×2 (17:00→17:26)
[2017-07-11] MEDS ORDERED: Norepinephrine 16MCG/ML IVPRE* 4,000 MCG/250 ML BAG IV ONE (17:05)
[2017-07-11] MEDS ORDERED: Dextrose 50% Syringe 50 ML* 25 GM/50 ML SYRINGE IV PUSH PRN (17:16)
[2017-07-11] MEDS ORDERED: Ondansetron INJ* 2 MG/ML VIAL IV PRN (17:27)
[2017-07-11] MEDS ORDERED: Acetaminophen TAB* 325 MG PO PRN (17:27)
[2017-07-11] MEDS ORDERED: Haloperidol INJ IV/IM* 5 MG/ML AMP IV SLOW PU PRN (17:28)
--- NOTE | 2017-07-11 17:38 | RAD ---
INDICATION: PICC placement. COMPARISON: Comparison is made with a prior study of the same date from 7 hours earlier. TECHNIQUE: A portable view of the chest was obtained. FINDINGS: The patient is status post posterior sternotomy and cardiac valve surgery. The heart is within normal limits in size. There is a PICC entering on the right side. The catheter tip projects over the right atrium. The lungs are underinflated. There is mild prominence of the interstitial markings. No focal infiltrate is seen. IMPRESSION: MILD INTERSTITIAL PROMINENCE POSSIBLY DUE TO UNDERINFLATION VERSUS INTERSTITIAL PULMONARY EDEMA.
[2017-07-11 17:48] LABS: EGFR Non-African American 64.8 (>60)
[2017-07-11 17:58] LABS: ABS Basophils 0.1 10^3/ul (0-0.2); ABS Eosinophils 0 10^3/ul (0-0.6); ABS Monocytes 0.2 10^3/ul (0-0.8); ABS Neutrophils 7.3 10^3/ul (1.5-7.7); ABS Nucleated RBC 0 10^3/ul; Eosinophil % 0 % (0-6); Hematocrit 22 % (42-52); Lymphocyte % 11.7 % (25-47); Mean Corpuscular HGB Conc 33 g/dl (31-36); Mean Corpuscular Hemoglobin 32 pg (27-31); Mean Corpuscular Volume 97 fL (80-94); Mean Platelet Volume 10 um3 (7.4-10.4); Nucleated Red Blood Cells % 0.3; Platelet Count 159 10^3/ul (150-450); Red Blood Count 2.23 10^6/ul (4.0-5.4); Red Cell Distribution Width 23 % (10.5-15); White Blood Count 8.6 10^3/ul (3.5-10.8)
[2017-07-11] MEDS: Insulin LISPRO* 1 UNITS UNIT SUBCUT SCH (18:59)
[2017-07-11] MEDS: Omeprazole CAP* 20 MG PO SCH (19:00)
--- NOTE | 2017-07-11 21:54 | CONS ---
CONSULTATION REPORT: DATE OF CONSULT: 07/11/17 REQUESTING PHYSICIAN: Dr. Patterson in the emergency room. INDICATIONS: Heme-positive stool. NARRATIVE: Mr. Concepcion is an elderly 87-year-old gentleman with multiple medical issues. He has a history of CVA in the past year, frequent urinary tract infections, long history of anemia, hypothyroid, type 2 diabetes, mitral valve prolapse and BPH who was found in his half-way to be acting strangely and having mental status changes. He was brought to the emergency room for this reason. In the emergency room, he was found to have stool in his diaper and it was guaiac'd and it was positive. Unfortunately, the patient really is not a good historian. His 2 step daughters are here with him. They also are not the best historians, really unsure what has gone on with his care. He does have a history of anemia dating back to at least April of last year. He was 7.5 for hemoglobin, going back a year and a half earlier, hemoglobin was 11.8. The patient denies any blood in the stool. He does state that he often has to push and strain to have a bowel movement. He denies any abdominal pain, no rectal pain, no nausea, no vomiting. He was recently started on Eliquis, I assume, due to his CVA. Unfortunately, the records from the half-way are very spotty and the patient and daughters are poor historians. MEDICATIONS: From his half-way include: 1. Atorvastatin. 2. Digoxin. 3. Ferrous sulfate. 4. Folic acid. 5. Levemir. 6. Levothyroxine. 7. Melatonin. 8. Metformin. 9. Metoprolol. 10. Omeprazole. 11. Vitamin B12. 12. Eliquis. 13. Gabapentin. PAST MEDICAL HISTORY: Please see above. ALLERGIES: None. FAMILY HISTORY: No GI malignancies in the family. SOCIAL HISTORY: Denies any tobacco, alcohol or IV drug use. His 2 step daughters are with him today. REVIEW OF SYSTEMS: 12 systems are reviewed and other than mentioned in the HPI were unremarkable. PHYSICAL EXAM: Temperature is 99.7, blood pressure is 88/38, pulse is 89. General: Elderly-appearing male, chronically ill, alert, oriented, pleasant, and fluent. HEENT: Mucous membranes are dry. Dentition is poor. Neck is supple. Trachea is midline. No supraclavicular, cervical lymphadenopathy. Heart: Regular rate and rhythm. Lungs clear to auscultation. Abdomen: Positive bowel sounds. Soft, nontender, nondistended. No hepatosplenomegaly, masses, rebound, or guarding. Skin is warm and dry. DIAGNOSTIC STUDIES/LAB DATA: Of note, troponin is 0.06, LFTs are unremarkable. He has got a BUN of 32, creatinine of 1.3, INR of 1.46. White count of 13.7, hemoglobin is 9.2, again his baseline is about at that area. Platelets are 210. He had a CT abdomen and pelvis, which is pending. ASSESSMENT AND PLAN: This is an 87-year-old gentleman with multiple significant medical issues, he came to the ED for mental status changes. It looks like he likely has a urinary tract infection; however, his stool was guaiac'd and it was positive. He does have a long history of anemia, I am not sure what has been done about this in the past. Records that came with him are terrible and the patient is a poor historian. He did have a colonoscopy in 2003 ; however, he pretty much denies all GI symptoms. He has multiple other reasons to have anemia other than GI. He is on a blood thinner additionally. I think given his frail health, it is going to be very difficult to put him through a workup for GI cause for his anemia, which would include a colonoscopy and upper endoscopy. The patient really does not want either one nor do the stepdaughters feel that he would tolerate it well and have advocated against it. We will continue to follow along at this point. [id number]/[facility] #: [id number] CEN[facility] ISLIP PSYCHIATRIC CENTERGrace
--- NOTE | 2017-07-11 22:20 | HP ---
H&P (Free Text) History and Physical: CRITICAL CARE MEDICINE DATE: 07/11/17 TIME: seen at 1700 REFERRING PROVIDER: Leonardo REASON/CHIEF COMPLAINT: altered ms HISTORY OF PRESENT ILLNESS: 87 yo M h/o cabg, uti's, sepsis, presenting with altered mentation, low grade temp and hypertension. Family noted him being altered and loss of balance. Difficulty obtaining rosario initially with almost 500ml out with +ua, Ct with mild obstructive uropathy with R urethralitiasis, given fluids, iv ceftriaxone. Bp not moving much with fluids, although mentation improved, HR came down some and pts resp pattern stable. Mild LA on admission. Picc line placed and vasoopressors started. Admit to ICU. Eval in ED at 1700. two sisters at bedside and pts son is proxy in [place]. State pt is known dnr but accept tx. REVIEW OF SYSTEMS: As per HPI. PAST MEDICAL HISTORY: As per HPI. cva, dm, afib on eliquis MEDICATIONS: Reviewed but not confirmed yet. ALLERGIES: Reviewed. None. SOCIAL HISTORY: Reviewed. FAMILY HISTORY: Noncontributory at present. PHYSICAL EXAM: Vital Signs: Reviewed. Neurologic: awake, communicating, dementia features, perhaps mild delirium, but nonfocal otherwise from baseline per family HEENT: anicteric, tongue midline, mmm Cardiovascular: distant, irreg, 2/6 debbie, Respiratory: mild R rhonchi otherwise phases well Abdomen: soft, overweight, nt Extremities: warm, <2sec cap refill, chronic changes, ecchymotic, mild dep edema Access: picc LABS: Reviewed. IMAGING: Reviewed. MEDICATIONS: Reviewed. ASSESSMENT: 87 M Septic shock sec to uti mild septic encephalopathy JAYME ureterlithiasis Relative adrenal insuff acute on chronic anemia sec to sepsis heme pos stools CAD, DM PLAN: Neurologic: tolerable. better perfusing. avoid sedatives. Cardiovascular: pefusing. vol status better and can back down on IV volume bolues post 4L and continue LR. Vasodilated however and low dose vasopressors to ensure perfusion. f/u dig needs for rate control Respiratory: tolering well. nc if needed. Gastrointestinal: eval per GI but no acute needs. ppi daily at present. f/u subacute needs. Renal/Metabolic: jayme sec to sepsis. f/u post fluids. rosario. urology eval and no emergent intervention needs. Explained to family, perhaps in a day or so may need cysto but would be deferring to urology assessment. Infectious Disease: C3 should be adequete. f/u cx and needs Hematology: chronic anemia workup needs. hold eliquis Endocrine: stress dose steroids. Musculoskeletal: f/u skin needs Psych/Social: family updated but proxy not reachable at time of my phone call Supportive and preventative care as ordered. SUP: ppi VTE prophylaxis: holding eliquis Rosario catheter given critical illness, monitoring needs for accurate assessment of JAYME and KDIGO criteria for critically ill patients and to avoid potential harms of urinary retention, skin breakdown/ulcers. Disposition: ICU Code Status: DNR Critical Care Time: 45min FDon Parra DO
[2017-07-11] MEDS: Hydrocortisone INJ* 100 MG VIAL IV SCH (23:30)
[2017-07-12] MEDS: Insulin LISPRO* 1 UNITS UNIT SUBCUT SCH ×4 (01:25→18:16)
[2017-07-12] MEDS: Omeprazole CAP* 20 MG PO SCH (06:13)
[2017-07-12] MEDS: Hydrocortisone INJ* 100 MG VIAL IV SCH (06:25)
[2017-07-12 06:48] LABS: Immature Retic Fraction 0.78; RBC Retic Count 2.31 10^6/ul (4.6-6.2); Red Blood Count 2.31 10^6/ul (4.0-5.4)
[2017-07-12 06:55] LABS: INR 1.21 (0.77-1.02)
[2017-07-12 06:59] LABS: EGFR Non-African American 76.1 (>60)
[2017-07-12 07:01] LABS: Corrected Retic Count 0.8 % (0.5-1.5); Hematocrit 23 % (42-52); Hematocrit for Retic CNT 23 % (42-52); Hemoglobin 7.4 g/dl (14.0-18.0); Mean Corpuscular HGB Conc 32 g/dl (31-36); Mean Corpuscular Hemoglobin 31 pg (27-31); Mean Corpuscular Volume 96 fL (80-94); Mean Platelet Volume 11 um3 (7.4-10.4); Platelet Count 183 10^3/ul (150-450); Red Cell Distribution Width 23 % (10.5-15); White Blood Count 6.4 10^3/ul (3.5-10.8)
[2017-07-12 07:42] LABS: Monocytes % 1 % (0-13)
[2017-07-12] MEDS ORDERED: cefTRIAXone(*) 1 GM in NS 0.9% 50 ML* 50 ML IVPB SCH (09:00)
--- NOTE | 2017-07-12 10:09 | RAD ---
INDICATION: Clinical concern for hydronephrosis. There is a questionable history of prostatectomy. COMPARISON: Similar examination dated May 01, 2017 TECHNIQUE: Real-time ultrasound examination of the bilateral kidneys and urinary bladder including grayscale and Doppler color flow analysis. FINDINGS: Unless otherwise specified comparisons below reference the May 01, 2017 ultrasound. The right kidney there is a nonobstructing echogenic shadowing focus measuring up to 6 mm in greatest dimension. This appears similar to the previous ultrasound. In the distal ureter there is a calculus measuring 1.4 x 0.8 x 1.2 cm that corresponds to a similar calcification from the 2016 ultrasound. The kidneys are otherwise normal in size. There is a very mild degree of right-sided hydronephrosis. The urinary bladder is mostly decompressed the presence of a Mansfield catheter. There is the appearance of wall thickening up to 11 mm. Echogenic debris is seen in the dependent portion of the urinary bladder possibly representing calculi or sequela of blood clots that were seen in the previous ultrasound. No ureteral jet is seen bilaterally. The prostate is not discretely visualized. IMPRESSION: 1. There is a very mild degree of right-sided hydronephrosis but this is reduced when compared to the May 01, 2017 ultrasound. 2. In the distal right ureter there is a calcification measuring 1.4 cm in greatest dimension that appears to correspond to a similar calcification measuring 1 cm on the previous ultrasound. 3. Evaluation of the urinary bladder is limited as it is decompressed by a Mansfield catheter. No ureteral jets were seen bilaterally.
[2017-07-12] MEDS ORDERED: Magnesium Sulfate 2 GM IV* 2 GM/50 ML BAG IVPB ONE (10:18)
--- NOTE | 2017-07-12 11:37 | PN ---
Progress Note - Progress Note Date of Service: 07/12/17 Note: CRITICAL CARE MEDICINE DATE: 07/12/17 TIME: 920 SUBJECTIVE: Patient seen and examined. PHYSICAL EXAM: Vital Signs: Reviewed. Neurologic: awake, communicating better. less notable dementia features but more noticeable word finding ailments HEENT: anicteric, tongue midline, mmm Cardiovascular: distant, reg, 2/6 debbie Respiratory: mild R rhonchi otherwise phases well Abdomen: soft, nt Extremities: warm, chronic changes Access: picc LABS: Reviewed. IMAGING: Reviewed. MEDICATIONS: Reviewed. ASSESSMENT: 87 M Septic shock sec to uti - bc sofar with strept mild septic encephalopathy AL ureterlithiasis Relative adrenal insuff acute on chronic anemia; iron def. heme pos stools CAD, DM PAF on eliquis with h/o cvas PLAN: Neurologic: better. can resume his gabapentin. Cardiovascular: pefusing well. vol status met. can dc ivf today. no pressors. utilize dig and outpt rx Respiratory: tolerating well. ra Gastrointestinal: no acute needs, but f/u Renal/Metabolic: al sec to sepsis improved. rosario. d/w urology - can plan OR needs monday as long as he is doing well. off eliquis and medically optimized. Infectious Disease: C3 - f/u cx Hematology: chronic anemia workup needs. iron suppl. holding eliquis. can start hsq prophylaxis. Endocrine: stress dose steroids can be dc post pulse. resume T4. hold metformin. ssi and f/u long acting needs. Musculoskeletal: f/u skin needs Psych/Social: pt in good spirits Supportive and preventative care as ordered. SUP: ppi VTE prophylaxis: holding eliquis; hsq Rosario catheter given critical illness, monitoring needs for accurate assessment of AL and KDIGO criteria for critically ill patients and to avoid potential harms of urinary retention, skin breakdown/ulcers. Disposition: to floor Code Status: DNR Critical Care Time: 25min Faith Parra DO
[2017-07-12] MEDS: Ascorbic Acid TAB* 500 MG PO SCH (11:47)
[2017-07-12] MEDS ORDERED: Piperacillin/Tazobac ADVAN(*) 3.375 GM in NS 0.9% 100 ML* 100 ML IVPB ONE (13:29)
--- NOTE | 2017-07-12 13:45 | PN ---
Progress Note - Progress Note Date of Service: 07/12/17 Note: CRITICAL CARE MEDICINE DATE: 07/12/17 TIME: 1320 Cx returning with enterococcus faecalis. clincally well. change to zosyn instead of C3 until final sens and then utilize kenisha or vanco if needed. Disposition: to floor Critical Care Time: 5min Faith Parra DO
[2017-07-12] MEDS ORDERED: Zosyn per Pharmacy* NOTE FOLLOW UP SCH (14:00)
--- NOTE | 2017-07-12 16:49 | CONS ---
CC: Al Ac MD CONSULTATION REPORT: DATE OF CONSULT: 07/12/17 REQUESTING PHYSICIAN: Dr. Parra. DIAGNOSES: 1. Calculus, right ureter. 2. Sepsis. CONSULTATION: Wai Concepcion is an 87-year-old gentleman, who has multiple medical issues. He had or iginally been at [facility] sometime within the last couple of months and was eventually t ransferred to [facility] in [place] where he underwent emergent right stent insertion. He also states that he had some sort of prostate surgery, details of which are not available to me at the time of this dictation. At that time, he did not have any treatment done for the calculus in th e ureter, which had necessitated the stent insertion, and he now was brought to the emergency room on 07/11/17 with altered mental status and was noted to have a large calculus in the right distal urete r alongside the stent. He also was hypotensive with the clinical picture consistent with sepsis and was admitted and started on intravenous antibiotics and hydrated with significant improvement in his clinical status. PAST MEDICAL HISTORY: Significant for: 1. CVA. 2. Recurrent urinary tract infections. 3. Longstanding history of anemia. 4. Type 2 diabetes. 5. History of mitral valve prolapse. 6. Hypothyroidism. MEDICATIONS: On admission: 1. Digoxin 1 tablet daily. 2. Atorvastatin 40 mg daily. 3. Levothyroxine 1 tablet daily. 4. Eliquis which is currently on hold. 5. Gabapentin. 6. Metoprolol. 7. Metformin daily (doses not available at the time of dictation) ALLERGIES: No known drug allergies. PHYSICAL EXAM: He is an elderly gentleman, who is alert, slightly confused, sitting up in bed at the time of evaluation. Vital Signs: Blood pressure is 145/59, pulse rate 82 per minute, oxygen satura tion 99% on room air. DIAGNOSTIC STUDIES/LAB DATA: I reviewed the CT scan which shows a fairly large 11- to 12-mm calculus in the right distal ureter with an appropriately positioned right stent and mild right hydronephrosi s. His white blood cell count on admission was 13.7, but it has improved to 6.4 this morning. His hemog lobin and hematocrit were 9.2 and 29 on admission and are 7.4 and 23 now (possibly secondary to hydra tion), platelet count is 183. Sodium is 139, potassium 4.4, BUN and creatinine are 27 and 0.94 with a glucose of 130. Lactic acid on admission was 2.1. His blood culture preliminary is positive for gram-positive cocci resembling strep and urine culture is not back at the time of this dictation. He also has a Mansfield catheter in place which initially was draining red urine and is now light brown in color. IMPRESSION AND PLAN: I had a detailed discussion with Dr. Parra regarding the management options f or his ureteral calculus and the fact that he is fairly anemic and also has multiple medical issues. He feels that he currently will be in optimal condition after another additional day of antibiotics. So, the plan is to take him to the operating room on 07/14/17 for a right ureteroscopy, laser litho tripsy, and stent replacement. I discussed the procedure with the patient also and we will schedule it for 07/14/17. [id number]/[facility] #: [id number]
--- NOTE | 2017-07-12 17:59 | ED ---
Alcides Hollingsworth Angela, scribed for Jason Patterson MD on 07/11/17 at 1447 . Progress - Progress Note Progress Note: OLAMIDE Gallego asked me to see the pt at 14:47. This pt is an 87 y/o male presenting to [facility] via EMS from [facility] with the complaint of weakness, accidental fall unclear histori of head trauma. As per Ms Adame there is findings of GI bleed and hypotension. Pt seems to have a large bladder with a stone and sepsis. Family members report the pt was found on the floor of the bathroom after a fall this morning. Staff members at [facility] noticed the pt was not acting himself and was confused during breakfast. Pt was also found to have hematuria and a temperature of 100.9 F. Per EMS, pt was recently started on Eliquis for atrial fibrillation. Family members note pt's confusion is a little better currently than at onset. PMHx: one ureteral stent placed for a stone (in [place]). Physical Exam: VITAL SIGNS: Reviewed. GENERAL: Patient is an elderly and very fragile male who is lying comfortable in the stretcher. Patient is not in any acute respiratory distress. Pt is hypotensive. HEAD AND FACE: No signs of trauma. No ecchymosis, hematomas or skull depressions. No sinus tenderness. EYES: PERRLA, EOMI x 2, No injected conjunctiva, no nystagmus. EARS: Hearing grossly intact. Ear canals and tympanic membranes are within normal limits. MOUTH: Oropharynx within normal limits. NECK: Supple, trachea is midline, no adenopathy, no JVD, no carotid bruit, no c- spine tenderness, neck with full ROM. CHEST: Symmetric, no tenderness at palpation LUNGS: Clear to auscultation bilaterally. No wheezing or crackles. CVS: Regular rate and rhythm, S1 and S2 present, no murmurs or gallops appreciated. ABDOMEN: Soft, non-tender. Non-distended abdomen. No rebound no guarding, and no masses palpated. Bowel sounds are normal. : Pt has a rosario catheter in place with approximately 300 cc of hematuria. EXTREMITIES: FROM in all major joints, no edema, no cyanosis or clubbing. NEURO: Alert but slightly confused. No acute neurological deficits. Speech is normal and follows commands. SKIN: Dry and warm. Pt has bruising on the abdomen from heparin shots in the past. Pt will be admitted to [facility], in stable condition, with diagnosis of pyelonephritis, sepsis, GI bleed, acute on chronic renal failure. Disposition: Admit to [facility] Condition: Stable - Results/Orders Results/Orders: Brain CT, as read by radiologist: IMPRESSION: 1. No acute intracranial pathology. 2. Diffuse involutional change with chronic small vessel ischemic changes. 3. Encephalomalacia consistent with remote left frontal infarct. 4. Air-fluid level within the right maxillary sinus. In the correct clinical setting this may represent acute sinusitis. Dr. Patterson has reviewed this radiology report. Abdomen/Pelvis CT, as read by radiologist: IMPRESSION: 1. There are multiple bilateral punctate calcifications in the collecting systems. There is a mild degree of right-sided hydronephrosis in the presence of a right ureteral stent and a coarse calcification in the distal right ureter measuring 11 mm in greatest dimension. 2. Urinary bladder is mostly decompressed in the presence of a rosario catheter making the fonseca appear thickened. There is air in the nondependent lumen of the bladder likely related to recent instrumentation. 3. Images of the lung bases could represent early changes of interstitial lung disease or pulmonary edema. 4. Additional chronic and degenerative changes described in the body the report. Dr. Patterson has reviewed this radiology report. Re-Evaluation - Re-Evaluation First Eval Re-Evaluation Time: 12:00 Change: Worse - hypotensive, febrile, waiting on second liter of fluid and will give more tylenol Second Eval Re-Evaluation Time: 13:30 Change: Worse - still hypotensive, fever improved. spoke with Dr Jones who wanted a renal ultrasound and will await admission pending results in case of urology consult due to previous visit and history of transfer due to complications, given rochephin for urosepsis, spoke with Dr Patterson who took over case Course/Dx - Course Course Of Treatment: Test results show WBC of 13.87, with chronic anemia, chronic renal failure, lactic acid of 2.1, troponin is 0.06. Urinalysis is positive for UTI. In the ED course after I took over the care for this pt, pt was give 2 bolus of IV fluids, however he continues to have low blood pressure. At this time I discussed the case with Dr. Ac, who requested to do abdomen/ pelvis CT. In the meantime Ms. Adame consulted with GI, who will consult on the pt. I ordered a PICC line and pt was given more fluids. Since blood pressure is not improving I ordered Levophed and Hydrocortisone to correct the Hypotension. After the abdomen/pelvis CT results, which showed: 1. There are multiple bilateral punctate calcifications in the collecting systems. There is a mild degree of right-sided hydronephrosis in the presence of a right ureteral stent and a coarse calcification in the distal right ureter measuring 11 mm in greatest dimension. 2. Urinary bladder is mostly decompressed in the presence of a rosario catheter making the fonseca appear thickened. There is air in the nondependent lumen of the bladder likely related to recent instrumentation. 3. Images of the lung bases could represent early changes of interstitial lung disease or pulmonary edema. 4. Additional chronic and degenerative changes described in the body the report. I discussed the results with Dr. Ac, who will consult for this pt. He requests no Eliquis since he will be taken to the OR for the removal of the 9 mm kidney stone in the next couple of days. At this point I discussed with Dr. Parra, who accepted the pt for admission. After the IV fluids and Levophed, the blood pressure is improving. The pt will be transferred to ICU services. The pt is critical but more stable. - Diagnoses Provider Diagnoses: GI bleed, Sepsis, Pyelonephritis, Acute on chronic renal failure, UTI (urinary tract infection) - Provider Notifications Discussed Care Of Patient With: Al Ac Time Discussed With Above Provider: 15:13 Instructed by Provider To: Other - I discussed pt care with Dr. Ac, urologist , and reports to order a CT abdomen/pelvis. He will decide if the pt needs to be transferred to [facility] after the CT results. [16:21] I spoke wtih Dr. Ac, urologist, and updated him on the CT results, and he reports he will consult on the pt. He also reports to let the hospitalist know to stop Eliquis and continue Rocephin. [16:36] I discussed the case with Dr. Parra, getter operator, who has agreed to admit the pt. - Critical Care Time Critical Care Time: 75-104 min The documentation as recorded by the scribe, Mcgrath,Earlene accurately reflects the service I personally performed and the decisions made by me, Jason Patterson MD.
[2017-07-12] MEDS ORDERED: Piperacillin/Tazobactam 13.5 GM IV 24 hour continuous infusion IVPB SCH ×2 (20:00)
[2017-07-12] MEDS: Atorvastatin* 10 MG TAB PO SCH (20:39)
[2017-07-12] MEDS: Gabapentin CAP(*) 100 MG PO SCH (20:39)
[2017-07-13] MEDS: Insulin LISPRO* 1 UNITS UNIT SUBCUT SCH ×4 (00:34→17:22)
[2017-07-13 06:06] LABS: ABS Basophils 0 10^3/ul (0-0.2); ABS Eosinophils 0 10^3/ul (0-0.6); ABS Lymphocytes 0.8 10^3/ul (1.0-4.8); ABS Monocytes 0.1 10^3/ul (0-0.8); ABS Neutrophils 7.1 10^3/ul (1.5-7.7); ABS Nucleated RBC 0 10^3/ul; Eosinophil % 0 % (0-6); Hematocrit 23 % (42-52); Hemoglobin 7.5 g/dl (14.0-18.0); Lymphocyte % 10.3 % (25-47); Mean Corpuscular HGB Conc 32 g/dl (31-36); Mean Corpuscular Hemoglobin 31 pg (27-31); Mean Corpuscular Volume 97 fL (80-94); Mean Platelet Volume 10 um3 (7.4-10.4); Nucleated Red Blood Cells % 0.3; Platelet Count 177 10^3/ul (150-450); Red Cell Distribution Width 23 % (10.5-15); White Blood Count 8.1 10^3/ul (3.5-10.8)
[2017-07-13 06:19] LABS: EGFR Non-African American 65.5 (>60)
[2017-07-13] MEDS: Omeprazole CAP* 20 MG PO SCH (07:00)
[2017-07-13] MEDS ORDERED: Insulin LISPRO* 1 UNITS UNIT SUBCUT SCH (07:30)
[2017-07-13] MEDS ORDERED: Insulin GLARGINE(*) 1 UNITS UNIT SUBCUT SCH (08:00)
[2017-07-13] MEDS ORDERED: Omeprazole CAP* 20 MG PO SCH (09:00)
[2017-07-13] MEDS: Gabapentin CAP(*) 100 MG PO SCH ×2 (10:23→21:00)
[2017-07-13] MEDS: Levothyroxine TAB* 100 MCG TAB PO SCH (10:23)
[2017-07-13] MEDS: Folic Acid TAB* 1 MG PO SCH (10:23)
[2017-07-13] MEDS: Cyanocobalamin TAB* 500 MCG PO SCH (10:23)
[2017-07-13] MEDS: Metoprolol Succinate XL TAB* 25 MG PO SCH (10:25)
[2017-07-13] MEDS: Ferrous Sulfate TAB* 325 MG PO SCH (10:26)
[2017-07-13] MEDS: Ascorbic Acid TAB* 500 MG PO SCH (10:26)
[2017-07-13] MEDS: Digoxin TAB* 0.125 MG PO SCH (10:26)
[2017-07-13] MEDS: Multivitamins/Minerals TAB PO SCH (10:26)
[2017-07-13] MEDS: Ampicillin IV* 2 GM in NS 0.9% 100 ML* 100 ML IVPB SCH ×3 (10:46→21:30)
--- NOTE | 2017-07-13 15:32 | PN ---
Subjective Date of Service: 07/13/17 Interval History: No c/o. Objective Active Medications: Acetaminophen (Tylenol Tab*) 650 mg PO Q6H PRN PRN Reason: FEVER/PAIN Ascorbic Acid (Vitamin C Tab*) 500 mg PO DAILY [facility] Last Admin: 07/13/17 10:26 Dose: 500 mg Atorvastatin Calcium (Lipitor*) 10 mg PO BEDTIME [facility] Last Admin: 07/12/17 20:39 Dose: 10 mg Cyanocobalamin (Vitamin B12 Tab*) 1,000 mcg PO DAILY [facility] Last Admin: 07/13/17 10:23 Dose: 1,000 mcg Dextrose (D50w Syringe 50 Ml*) 12.5 gm IV PUSH .FOR FS < 60 - SS PRN PRN Reason: FS < 60 Digoxin (Lanoxin Tab*) 0.125 mg PO DAILY [facility] Last Admin: 07/13/17 10:26 Dose: 0.125 mg Ferrous Sulfate (Ferrous Sulfate Tab*) 650 mg PO DAILY [facility] Last Admin: 07/13/17 10:26 Dose: 650 mg Folic Acid (Folvite Tab*) 1 mg PO DAILY [facility] Last Admin: 07/13/17 10:23 Dose: 1 mg Gabapentin (Neurontin Cap(*)) 100 mg PO BID [facility] Last Admin: 07/13/17 10:23 Dose: 100 mg Haloperidol Lactate (Haldol Inj Iv/Im*) 2 mg IV SLOW PU Q4H PRN PRN Reason: AGITATION/ANXIETY Potassium Chloride 20 meq/ (Lactated Ringer's) 1,010 mls @ 100 mls/hr IVPB Q10H [facility] Last Admin: 07/13/17 14:10 Dose: 100 mls/hr Ampicillin Sodium 2 gm/ Sodium (Chloride) 100 mls @ 200 mls/hr IVPB Q6H [facility] Last Admin: 07/13/17 10:46 Dose: 200 mls/hr Insulin Glargine (Lantus(*)) 6 units SUBCUT Q24H [facility] Last Admin: 07/13/17 08:36 Dose: 6 units Insulin Human Lispro (Humalog*) 0 units SUBCUT AC [facility] PRN Reason: Protocol Last Admin: 07/13/17 12:49 Dose: 1 unit Levothyroxine Sodium (Synthroid Tab*) 100 mcg PO DAILY [facility] Last Admin: 07/13/17 10:23 Dose: 100 mcg Metoprolol Succinate (Toprol Xl Tab*) 25 mg PO DAILY [facility] Last Admin: 07/13/17 10:25 Dose: 25 mg Multivitamins/Minerals (Theragran/Minerals Tab*) 1 tab PO DAILY [facility] Last Admin: 07/13/17 10:26 Dose: 1 tab Omeprazole (Prilosec Cap*) 20 mg PO 0600 [facility] Last Admin: 07/13/17 07:00 Dose: 20 mg Ondansetron HCl (Zofran Inj*) 4 mg IV Q4H PRN PRN Reason: NAUSEA Polyvinyl Alcohol (Polyvinyl Alcohol 1.4% Opth*) 1 drop BOTH EYES TID PRN PRN Reason: DRY EYE Vital Signs - 8 hr 07/13/17 07/13/17 07/13/17 07:29 08:00 10:23 Temperature 98.3 F Pulse Rate 82 Respiratory 20 16 14 Rate Blood Pressure 117/66 (mmHg) O2 Sat by Pulse 100 Oximetry 07/13/17 07/13/17 07/13/17 10:26 11:25 14:29 Temperature 98.3 F Pulse Rate 79 82 Respiratory 16 16 Rate Blood Pressure 123/63 (mmHg) O2 Sat by Pulse 96 Oximetry Oxygen Devices in Use Now: None Appearance: Alert, in a chair. In good spirits. Looks comfortable. Eyes: No Scleral Icterus Neck: NL Appearance and Movements; NL JVP, No Thyroid Enlargement, Masses Respiratory: Symmetrical Chest Expansion and Respiratory Effort, Clear to Auscultation, Clear to Percussion Cardiovascular: NL Sounds; No Murmurs; No JVD, RRR, No Edema, - Abdominal: NL Sounds; No Tenderness; No Distention, - - No CVA tenderness Extremities: No Edema, No Clubbing, Cyanosis, - Skin: No Rash or Ulcers, No Nodules or Sclerosis, - Neurological: Alert and Oriented x 3, NL Sensation Result Diagrams: 07/13/17 05:53 07/13/17 05:53 Additional Lab and Data: Lab Results 07/11/17 07/11/17 07/11/17 Range/Units 10:20 10:20 10:20 WBC 13.7 H (3.5-10.8) 10^3/ul RBC 2.98 L (4.0-5.4) 10^6/ul Hgb 9.2 L (14.0-18.0) g/dl Hct 29 L (42-52) % MCV 96 H (80-94) fL MCH 31 (27-31) pg MCHC 32 (31-36) g/dl RDW 22 H (10.5-15) % Plt Count 210 (150-450) 10^3/ul MPV 10 (7.4-10.4) um3 Neut % (Auto) Pending Lymph % (Auto) Pending Banner % (Auto) Pending Eos % (Auto) Pending Baso % (Auto) Pending Absolute Neuts (auto) Pending Absolute Lymphs (auto) Pending Absolute Monos (auto) Pending Absolute Eos (auto) Pending Absolute Basos (auto) Pending Absolute Nucleated RBC Pending Nucleated RBC % Pending Sodium 136 (133-145) mmol/L Potassium 4.3 (3.5-5.0) mmol/L Chloride 104 (101-111) mmol/L Carbon Dioxide 25 (22-32) mmol/L Anion Gap 7 (2-11) mmol/L BUN 32 H (6-24) mg/dL Creatinine 1.30 H (0.67-1.17) mg/dL Est GFR ( Amer) 67.3 (>60) Est GFR (Non-Af Amer) 52.3 (>60) BUN/Creatinine Ratio 24.6 H (8-20) Glucose 198 H (70-100) mg/dL Lactic Acid 2.1 H* (0.5-2.0) mmol/L Calcium 8.7 (8.6-10.3) mg/dL Total Bilirubin 0.70 (0.2-1.0) mg/dL AST 34 (13-39) U/L ALT 26 (7-52) U/L Alkaline Phosphatase 84 (34-104) U/L Troponin I Pending Total Protein 6.4 (6.4-8.9) g/dL Albumin 2.9 L (3.2-5.2) g/dL Globulin 3.5 (2-4) g/dL Albumin/Globulin Ratio 0.8 L (1-3) Assess/Plan/Problems-Billing Assessment: - Patient Problems (1) UTI (urinary tract infection) Current Visit: Yes Status: Acute Comment: 4 blood C&S pos for E. faecalis. Changed to IV ampicillin. Echo ordered. Plan for laser lithotripsy 07/14/17. Keep Mansfield in as per Dr. Ac. (2) Diabetes Current Visit: Yes Status: Acute Code(s): E11.9 - TYPE 2 DIABETES MELLITUS WITHOUT COMPLICATIONS SNOMED Code(s): 76132225 Comment: Metformin on hold, small dose Lantus ordered plus Lispro by SS. (3) Atrial fibrillation Current Visit: Yes Status: Acute Code(s): I48.91 - UNSPECIFIED ATRIAL FIBRILLATION SNOMED Code(s): 55047842 Comment: Apixaban on hold until lithotripsy done. In NSR as of 07/13. Continue digoxin. (4) Hypothyroid Current Visit: Yes Status: Acute Code(s): E03.9 - HYPOTHYROIDISM, UNSPECIFIED SNOMED Code(s): 94329011 Comment: Addon TSH requested.
--- NOTE | 2017-07-13 15:40 | ECHO ---
Patient: DEEPAK DOWNEY [facility] Rec#: [id number] : 1930 Date: 07/13/2017 Age: 87y Height: 160.02 cm / 63.0 in Weight: 56.7 kg / 125.0 lbs Sex: M BSA: 1.58 Room#: 435 Admit Date#: 07/11/2017 Type: Inpatient Referring: Kristian Christie MD Reading: Fer Hollis MD Probation Agent: Cecily Steele RDCS,RDMS CC: Kian Jimenez MD Transthoracic Echocardiogram Indication: Bacteremia BP: 104/54 HR: 82 Rhythm: NSR Findings History: CAD, CABG, HTN, DM, CVA, TIA, MV replacement Technical Comments: The study quality is good. Left Ventricle: The left ventricular chamber size is normal. Mild concentric left ventricular hypertrophy is observed. There is mildly decreased left ventricular systolic function. The estimated ejection fraction is 45-50%. Ventricular septal wall motion has a post-operative appearance. Abnormal left ventricular diastolic function is observed. Left Atrium: The left atrium is mildly dilated. Right Ventricle: The right ventricle wall thickness is mildly increased. The right ventricular cavity size is normal. The right ventricular global systolic function is mildly reduced. Right Atrium: The right atrial cavity size is normal. A catheter is visualized in the right atrium. Aortic Valve: The aortic valve is trileaflet. There is mild thickening of the non coronary cusp. There is no evidence of aortic regurgitation. There is no evidence of aortic stenosis. There is no aortic vegetation present. Mitral Valve: There is trace to mild mitral regurgitation.Of note, due to the eccentric nature of the jet, a perivalvular leak cannot be excluded by transthoracic echo (consider JUAN for clearer analysis).The severeity by color flow appears mild but may not be fully appreciated. The mitral valve area, by pressure half time, is calculated at 2.2 cm2. A bioprosthetic mitral valve is present. A #25 mm Carrillo Magna Ease bovine bioprothetic mitral valve. There is some increased echogenicity of the leaflets (JUAN would be helpful to assess for valvular lesions). Tricuspid Valve: The tricuspid valve leaflets are normal. There is mild tricuspid regurgitation. There is evidence of mild to moderate pulmonary hypertension. No vegetation is observed on the tricuspid valve. Pulmonic Valve: The pulmonic valve appears normal. There is a trace pulmonic regurgitation. No vegetation is observed on the pulmonic valve. Pericardium: There is no significant pericardial effusion. Aorta: The aortic root appears normal. There is no dilatation of the aortic arch. Pulmonary Artery: The main pulmonary artery appears normal. Venous: The inferior vena cava appears normal in size. There is an approximate 50% respiratory change in the inferior vena cava dimension. Conclusions Mild concentric left ventricular hypertrophy is observed. There is mildly decreased left ventricular systolic function. The estimated ejection fraction is 45-50%. The right ventricular global systolic function is mildly reduced. A bioprosthetic mitral valve is present. A #25 mm Carrillo Magna Ease bovine bioprothetic mitral valve. There is some increased echogenicity of the leaflets (JUAN would be helpful to assess for valvular lesions). There is trace to mild mitral regurgitation.Of note, due to the eccentric nature of the jet, a perivalvular leak cannot be excluded by transthoracic echo (consider JUAN for clearer analysis).The severeity by color flow appears mild but may not be fully appreciated. There is mild tricuspid regurgitation. There is evidence of mild to moderate pulmonary hypertension. There is a trace pulmonic regurgitation. Compared to report of study from [facility] from 04/08/2017 the overall LVEF is now lower (was reported as 65%), trace paravalvular regurgitation was noted before compared with the mild abnormal flow noted now. Could consider a JUAN to more accurately assess the mitral valve as mentioned above. Measurements Name Value Normal Range RVIDd (AP) 2D 2.5 cm (0.9 - 2.6) RVDdMajor (2D) 2.9 cm (2.2 - 4.4) RAd ISD 4CH 4.5 cm (3.4 - 4.9) RA (A4C)W 3.7 cm (2.9 - 4.6) IVSd (2D) 1.1 cm (0.6 - 1) LVPWd (2D) 1.1 cm (0.6 - 1) LVIDd (2D) 4 cm (3.6 - 5.4) LVIDs (2D) 2.7 cm - LV FS (2D) 33 % (25 - 45) Aortic Annulus 2 cm (1.4 - 2.6) Ao root diameter (2D) 2.7 cm (2.1 - 3.5) Ascending Ao 2.9 cm (2.1 - 3.4) Aortic arch 2.7 cm (1.8 - 3.4) LA dimension (AP) 2D 4.3 cm (2.3 - 3.8) LAd ISD 4CH 5.7 cm (2.9 - 5.3) LA ISD 4CH W 4.3 cm (2.5 - 4.5) Name Value Normal Range LA ESV SP 4CH (A/L) 63.38 ml - LA ESV SP 2CH (A/L) 48.91 ml - LA ESV BP (A/L) 60.75 ml - LA ESV BP (A/L) index 38 ml/m2 - LA ESV SP 4CH (MOD) 58.08 ml - LA ESV SP 2CH (MOD) 46.53 ml - LV EDV SP 4CH (MOD) 65.72 ml - LV ESV SP 4CH (MOD) 24.96 ml - EF SP 4CH (MOD) 62.02 % - LV EDV SP 2CH (MOD) 45.27 ml - LV ESV SP 2CH (MOD) 26.67 ml - EF SP 2CH (MOD) 41.08 % - LV EDV BP 55.71 ml - LV ESV BP 25.83 ml - BP EF (MOD) 54 % - Name Value Normal Range MV E-wave Vmax 1.9 m/sec - MV deceleration time 372 msec - MV A-wave Vmax 1.8 m/sec - MV E:A ratio 1.1 ratio - P. vein S-wave Vmax 0.6 m/sec - P. vein D-wave Vmax 0.5 m/sec - P. vein S:D Vmax ratio 1.1 ratio - P. vein A-wave duration 81 msec - LV septal e' Vmax 0.05 m/sec - LV lateral e' Vmax 0.05 m/sec - LV E:e' septal ratio 38 ratio - LV E:e' lateral ratio 38 ratio - Name Value Normal Range AV Vmax 1.2 m/sec - AV VTI 21 cm - AV peak gradient 6 mmHg - AV mean gradient 3.2 mmHg - LVOT Vmax 0.8 m/sec - LVOT VTI 16.2 cm - LVOT peak gradient 2.7 mmHg - LVOT mean gradient 1.5 mmHg - Name Value Normal Range MV Vmax 2.2 m/sec - MV VTI 69.1 cm - MV peak gradient 20 mmHg - MV mean gradient 10 mmHg - MV PHT 98 msec - MVA (PHT) 2.2 cm2 - Name Value Normal Range TR Vmax 3.2 m/sec - TR peak gradient 41 mmHg - RAP 3 mmHg - RVSP 44 mmHg - IVC diameter 1.7 cm - Name Value Normal Range PV Vmax 0.6 m/sec - PV peak gradient 1.4 mmHg -
[2017-07-13] MEDS: Atorvastatin* 10 MG TAB PO SCH (20:59)
[2017-07-14] MEDS: Ampicillin IV* 2 GM in NS 0.9% 100 ML* 100 ML IVPB SCH ×4 (04:34→22:41)
[2017-07-14 06:04] LABS: Hematocrit 29 % (42-52); Hemoglobin 9.7 g/dl (14.0-18.0)
[2017-07-14 06:17] LABS: INR 0.98 (0.77-1.02)
[2017-07-14] MEDS ORDERED: Insulin GLARGINE(*) 1 UNITS UNIT SUBCUT ONE (08:00)
[2017-07-14] MEDS: Insulin LISPRO* 1 UNITS UNIT SUBCUT SCH ×3 (08:33→16:40)
[2017-07-14] MEDS: Cyanocobalamin TAB* 500 MCG PO SCH (08:44)
[2017-07-14] MEDS: Omeprazole CAP* 20 MG PO SCH (08:44)
[2017-07-14] MEDS: Digoxin TAB* 0.125 MG PO SCH (08:44)
[2017-07-14] MEDS: Ferrous Sulfate TAB* 325 MG PO SCH (08:44)
[2017-07-14] MEDS: Metoprolol Succinate XL TAB* 25 MG PO SCH (08:44)
[2017-07-14] MEDS: Multivitamins/Minerals TAB PO SCH (08:45)
[2017-07-14] MEDS: Folic Acid TAB* 1 MG PO SCH (08:45)
[2017-07-14] MEDS: Ascorbic Acid TAB* 500 MG PO SCH (08:45)
[2017-07-14] MEDS: Levothyroxine TAB* 100 MCG TAB PO SCH (08:45)
[2017-07-14] MEDS: Gabapentin CAP(*) 100 MG PO SCH ×2 (08:45→21:07)
[2017-07-14] MEDS: Artificial Tears* 15 ML BTL BOTH EYES PRN (08:46)
--- NOTE | 2017-07-14 09:32 | PN ---
Subjective Date of Service: 07/14/17 Interval History: No c/o. Objective Active Medications: Acetaminophen (Tylenol Tab*) 650 mg PO Q6H PRN PRN Reason: FEVER/PAIN Ascorbic Acid (Vitamin C Tab*) 500 mg PO DAILY [facility] Last Admin: 07/14/17 08:45 Dose: 500 mg Atorvastatin Calcium (Lipitor*) 10 mg PO BEDTIME [facility] Last Admin: 07/13/17 20:59 Dose: 10 mg Cyanocobalamin (Vitamin B12 Tab*) 1,000 mcg PO DAILY [facility] Last Admin: 07/14/17 08:44 Dose: 1,000 mcg Dextrose (D50w Syringe 50 Ml*) 12.5 gm IV PUSH .FOR FS < 60 - SS PRN PRN Reason: FS < 60 Digoxin (Lanoxin Tab*) 0.125 mg PO DAILY [facility] Last Admin: 07/14/17 08:44 Dose: 0.125 mg Ferrous Sulfate (Ferrous Sulfate Tab*) 650 mg PO DAILY [facility] Last Admin: 07/14/17 08:44 Dose: 650 mg Folic Acid (Folvite Tab*) 1 mg PO DAILY [facility] Last Admin: 07/14/17 08:45 Dose: 1 mg Gabapentin (Neurontin Cap(*)) 100 mg PO BID [facility] Last Admin: 07/14/17 08:45 Dose: 100 mg Haloperidol Lactate (Haldol Inj Iv/Im*) 2 mg IV SLOW PU Q4H PRN PRN Reason: AGITATION/ANXIETY Heparin Sodium (Porcine) (Heparin Flush Picc/Ml/Cvc(*)) 1 ml FLUSH 0600,1800 [facility] PRN Reason: Protocol Last Admin: 07/14/17 05:48 Dose: 1 ml Potassium Chloride 20 meq/ (Lactated Ringer's) 1,010 mls @ 100 mls/hr IVPB Q10H [facility] Last Admin: 07/14/17 05:46 Dose: 100 mls/hr Ampicillin Sodium 2 gm/ Sodium (Chloride) 100 mls @ 200 mls/hr IVPB Q6H [facility] Last Admin: 07/14/17 09:20 Dose: 200 mls/hr Insulin Glargine (Lantus(*)) 6 units SUBCUT Q24H [facility] Insulin Human Lispro (Humalog*) 0 units SUBCUT AC [facility] PRN Reason: Protocol Last Admin: 07/14/17 08:33 Dose: Not Given Levothyroxine Sodium (Synthroid Tab*) 100 mcg PO DAILY [facility] Last Admin: 07/14/17 08:45 Dose: 100 mcg Metoprolol Succinate (Toprol Xl Tab*) 25 mg PO DAILY [facility] Last Admin: 07/14/17 08:44 Dose: 25 mg Multivitamins/Minerals (Theragran/Minerals Tab*) 1 tab PO DAILY [facility] Last Admin: 07/14/17 08:45 Dose: 1 tab Omeprazole (Prilosec Cap*) 20 mg PO 0600 [facility] Last Admin: 07/14/17 08:44 Dose: 20 mg Ondansetron HCl (Zofran Inj*) 4 mg IV Q4H PRN PRN Reason: NAUSEA Polyvinyl Alcohol (Polyvinyl Alcohol 1.4% Opth*) 1 drop BOTH EYES TID PRN PRN Reason: DRY EYE Last Admin: 07/14/17 08:46 Dose: 1 drop Vital Signs - 8 hr 07/14/17 07/14/17 07/14/17 01:52 02:12 04:12 Temperature 98.4 F 98.4 F Pulse Rate 78 75 Respiratory 24 22 22 Rate Blood Pressure 141/65 128/67 (mmHg) O2 Sat by Pulse 99 100 Oximetry 07/14/17 07/14/17 07/14/17 04:25 07:35 08:05 Temperature 98.6 F 98.7 F Pulse Rate 80 75 Respiratory 20 20 20 Rate Blood Pressure 138/72 128/81 (mmHg) O2 Sat by Pulse 99 99 Oximetry 07/14/17 07/14/17 08:44 08:45 Temperature Pulse Rate 80 Respiratory 20 Rate Blood Pressure (mmHg) O2 Sat by Pulse Oximetry Oxygen Devices in Use Now: Nasal Cannula Appearance: Alert, in a chair. In good spirits. Looks comfortable. Eyes: No Scleral Icterus Respiratory: Symmetrical Chest Expansion and Respiratory Effort, Clear to Auscultation, Clear to Percussion Cardiovascular: NL Sounds; No Murmurs; No JVD, RRR, No Edema, - Extremities: No Edema, No Clubbing, Cyanosis, - Skin: No Rash or Ulcers, No Nodules or Sclerosis, - Neurological: Alert and Oriented x 3, NL Sensation Result Diagrams: 07/14/17 05:54 07/13/17 05:53 Additional Lab and Data: Lab Results 07/11/17 07/11/17 07/11/17 Range/Units 10:20 10:20 10:20 WBC 13.7 H (3.5-10.8) 10^3/ul RBC 2.98 L (4.0-5.4) 10^6/ul Hgb 9.2 L (14.0-18.0) g/dl Hct 29 L (42-52) % MCV 96 H (80-94) fL MCH 31 (27-31) pg MCHC 32 (31-36) g/dl RDW 22 H (10.5-15) % Plt Count 210 (150-450) 10^3/ul MPV 10 (7.4-10.4) um3 Neut % (Auto) Pending Lymph % (Auto) Pending [place] % (Auto) Pending Eos % (Auto) Pending Baso % (Auto) Pending Absolute Neuts (auto) Pending Absolute Lymphs (auto) Pending Absolute Monos (auto) Pending Absolute Eos (auto) Pending Absolute Basos (auto) Pending Absolute Nucleated RBC Pending Nucleated RBC % Pending Sodium 136 (133-145) mmol/L Potassium 4.3 (3.5-5.0) mmol/L Chloride 104 (101-111) mmol/L Carbon Dioxide 25 (22-32) mmol/L Anion Gap 7 (2-11) mmol/L BUN 32 H (6-24) mg/dL Creatinine 1.30 H (0.67-1.17) mg/dL Est GFR ( Amer) 67.3 (>60) Est GFR (Non-Af Amer) 52.3 (>60) BUN/Creatinine Ratio 24.6 H (8-20) Glucose 198 H (70-100) mg/dL Lactic Acid 2.1 H* (0.5-2.0) mmol/L Calcium 8.7 (8.6-10.3) mg/dL Total Bilirubin 0.70 (0.2-1.0) mg/dL AST 34 (13-39) U/L ALT 26 (7-52) U/L Alkaline Phosphatase 84 (34-104) U/L Troponin I Pending Total Protein 6.4 (6.4-8.9) g/dL Albumin 2.9 L (3.2-5.2) g/dL Globulin 3.5 (2-4) g/dL Albumin/Globulin Ratio 0.8 L (1-3) Assess/Plan/Problems-Billing Assessment: - Patient Problems (1) UTI (urinary tract infection) Current Visit: Yes Status: Acute Comment: 4 blood C&S pos for E. faecalis. Changed to IV ampicillin. Echo showed increased echogenicity of bioprosthetic valves. JUAN to be done 07/14. Plan for laser lithotripsy 07/14/17. Keep [place] in as per Dr. Ac. (2) Diabetes Current Visit: Yes Status: Acute Code(s): E11.9 - TYPE 2 DIABETES MELLITUS WITHOUT COMPLICATIONS SNOMED Code(s): 19247508 Comment: Metformin on hold, small dose Lantus ordered plus Lispro by SS. (3) Atrial fibrillation Current Visit: Yes Status: Acute Code(s): I48.91 - UNSPECIFIED ATRIAL FIBRILLATION SNOMED Code(s): 25507315 Comment: Apixaban on hold until lithotripsy done. In NSR as of 07/13. Continue digoxin. (4) Hypothyroid Current Visit: Yes Status: Acute Code(s): E03.9 - HYPOTHYROIDISM, UNSPECIFIED SNOMED Code(s): 23424027 Comment: Addon TSH wnl 07/13/17.
[2017-07-14] MEDS ORDERED: Chloroprocaine 2%* 20 ML VIAL ONE (10:22)
[2017-07-14] MEDS ORDERED: fentaNYL* 50 MCG/ML 2 ML VIAL (100 MCG VIAL) ONE ×2 (10:23→14:16)
[2017-07-14] MEDS ORDERED: Iohexol 180 (CONTRAST) 10 ML SDV IV ONE (10:24)
[2017-07-14] MEDS ORDERED: Midazolam* 1 MG/ML 2 ML VIAL (2 MG) ONE (10:37)
[2017-07-14] MEDS ORDERED: Gentamicin ADULT (*) 40 MG/ML VIAL ONE (11:43)
[2017-07-14] MEDS ORDERED: Ondansetron INJ* 2 MG/ML VIAL IV PRN (11:52)
[2017-07-14] MEDS ORDERED: Naloxone* 0.4 MG/ML 1 ML VIAL IV PRN (11:52)
[2017-07-14] MEDS ORDERED: fentaNYL* 50 MCG/ML 2 ML VIAL (100 MCG VIAL) IV PRN (11:52)
[2017-07-14] MEDS ORDERED: Furosemide IV* 10 MG/ML 2 ML VIAL (20 MG) ONE (12:07)
--- NOTE | 2017-07-14 12:45 | RAD ---
CPT II Codes: 6045F. Indication: Right ureteral stent exchange. 4. Services provided for referring physician. 4 spot images demonstrates placement of a right ureteral stent. Approximately 10 seconds of fluoroscopy time was used. IMPRESSION: Fluoroscopic services provided for referring physician for stent exchange.
[2017-07-14] MEDS ORDERED: Midazolam* 1 MG/ML 10 ML VIAL (10 MG) ONE (14:16)
[2017-07-14] MEDS ORDERED: Lidocaine 2% VISCOUS* 15 ML UDC ONE (14:17)
[2017-07-14] MEDS ORDERED: Naloxone* 0.4 MG/ML 1 ML VIAL ONE (14:17)
[2017-07-14] MEDS ORDERED: Flumazenil* 0.1 MG/ML 5 ML MDV ONE (14:17)
--- NOTE | 2017-07-14 19:23 | TEE ---
Patient: DEEPAK DOWNEY [facility] Rec#: [id number] : 1930 Date: 07/14/2017 Age: 87y Height: 160.02 cm / 63.0 in Weight: 56.7 kg / 125.0 lbs Sex: M BSA: 1.58 Room#: 435 Type: Inpatient Referring: Kristian Christie MD Performing: Serafin Giang MD Reading: Serafin Giang MD Representative Government Relations: Marisol Kaye RDCS Nurse: Renee Prieto RN CC: Kian Jimenez MD Transesophageal Echocardiogram Indication: Bacteremia, s/p MV replacement BP: 159/69 HR: 75 Rhythm: NSR Findings History: CAD s/p CABG, sepsis, CVA, DM, afib, Bioprostheic MV replacement. Technical Comments: The study quality is good. Left Ventricle: The left ventricular chamber size is normal. There is mildly decreased left ventricular systolic function. The estimated ejection fraction is 45-50%. Left Atrium: The left atrium is mildly dilated. The left atrial appendage velocity is normal. No thrombus is visualized within the left atrium. There is no thrombus visualized in the left atrial appendage. Right Ventricle: The right ventricular cavity size is normal. The right ventricular global systolic function is mildly reduced. Right Atrium: The right atrial cavity size is normal. Interatrial septum appears intact without evidence of shunting. A bubble study was not performed due to a prior negative bubble study result during a transesophageal echocardiogram on 02/25/2016. There is no patent foramen ovale visualized. A patent foramen ovale is not demonstrated by color Doppler. Aortic Valve: The aortic valve is trileaflet. The aortic valve leaflets are mildly thickened. There is a trace of aortic regurgitation. There is no evidence of aortic stenosis. A mass is visualized on the aortic valve which appears consistent with a vegetation. Mitral Valve: There is mild to moderate mitral regurgitation. There is no evidence of mitral stenosis. No vegetation is observed on the mitral valve. A bioprosthetic mitral valve is present. There is abnormal regurgitation of the bioprosthetic mitral valve. Tricuspid Valve: The tricuspid valve leaflets are normal. There is mild tricuspid regurgitation. There is no tricuspid stenosis. No vegetation is observed on the tricuspid valve. Pulmonic Valve: The pulmonic valve appears normal. There is a trace pulmonic regurgitation. There is no pulmonic stenosis. No vegetation is observed on the pulmonic valve. Pericardium: There is no significant pericardial effusion. Aorta: There is no dilatation of the ascending aorta. The aortic root is normal in size. There is plaque visualized in the transverse aorta. There is mild atherosclerotic plaque in the visualized segments of the aorta. There is plaque visualized in the descending aorta. Pulmonary Artery: The main pulmonary artery appears normal. Venous: The bicaval view was obtained and appears normal. The pulmonary veins appear normal. 3 of 4 visualized. The pulmonary veins appear normal in size. JUAN Procedures: All standard views were attempted within the limitations of patient tolerance and safety. History and physical as well as labs were reviewed. The patient was in a fasting state. Risks and benefits of the procedure, including alternatives, were discussed and written informed consent was obtained. The patient and/or their health care inside account representative expressed understanding of the procedure, risks and benefits. Baseline and continuous monitoring of blood pressure, heart rate, pulse oximetry and heart rhythm was performed throughout the procedure. The appropriate time-out procedure was performed as per [employer] protocol. The patient was placed in the left lateral decubitus position. The patient's posterior pharynx was anesthetized with 20ml of 2% viscous lidocaine. The patient received IV Midazolam with a total dose of 5 mg. The patient received IV Fentanyl with a total dose of 50 mcg. An oral bite block was inserted for protection of oral dentition. The multiplane transesophageal echocardiogram probe was inserted through the posterior oropharynx and advanced into the esophagus without difficulty. Multiple 2D images were obtained of the heart and its related structures. Color flow Doppler was used for evaluation. Spectral Doppler was also used. The atrial septum was interrogated with color flow Doppler. At the conclusion of the procedure the probe was removed with continuous suction without complications. The patient tolerated the procedure with no apparent complications. Conclusions There is mildly decreased left ventricular systolic function. The estimated ejection fraction is 45-50%. The left atrium is mildly dilated. There is no thrombus visualized in the left atrial appendage. Interatrial septum appears intact without evidence of shunting. A bubble study was not performed due to a prior negative bubble study result during a transesophageal echocardiogram on 02/25/2016. A patent foramen ovale is not demonstrated by color Doppler. The aortic valve leaflets are mildly thickened. A mass is visualized on the aortic valve which appears consistent with a vegetation. There is mild to moderate mitral regurgitation. A bioprosthetic mitral valve is present. There is abnormal regurgitation of the bioprosthetic mitral valve. There is mild tricuspid regurgitation. There is a trace pulmonic regurgitation. There is plaque visualized in the transverse aorta. There is mild atherosclerotic plaque in the visualized segments of the aorta. Measurements Name Value Normal Range Aortic Annulus 1.6 cm (1.4 - 2.6) Ao root diameter (2D) 3.3 cm (2.1 - 3.5) Ascending Ao 3.3 cm (2.1 - 3.4) Name Value Normal Range MV E-wave Vmax 1.67 m/sec - MV deceleration time 402.1 msec - MV A-wave Vmax 1.65 m/sec - MV E:A ratio 1.01 ratio - Name Value Normal Range MR Vmax 6.27 m/sec - MR VTI 174.7 cm -
[2017-07-14] MEDS: Atorvastatin* 10 MG TAB PO SCH (21:17)
--- NOTE | 2017-07-15 01:18 | OP ---
CC: Dr. Christie; Dr. Kian Jimenez; Dr. Ac OPERATIVE REPORT: DATE OF OPERATION: 07/14/17 DATE OF : 32 SURGEON: Al Ac MD ANESTHESIOLOGIST: Dr. Griggs. ANESTHESIA: Spinal. PRE-OP DIAGNOSES: 1. Right hydronephrosis. 2. Large calculus, right distal ureter. POST-OP DIAGNOSES: 1. Right hydronephrosis. 2. Large calculus, right distal ureter. OPERATIVE PROCEDURE: Cystoscopy, right retrograde pyelogram, right ureteroscopy, laser lithotripsy o f right ureteral calculus, and removal of calculus fragment and right stent insertion. COMPLICATIONS: None. STENT USED: 8 Chinese stent, right ureter. OPERATIVE FINDINGS: 1. Normal appearing urethra. 2. The patient is status post laser enucleation of the prostate with a wide open prostatic fossa wit h no obstruction at the bladder neck. 3. Markedly distorted bladder with cloudy urine and large calculus, left distal ureter. INDICATIONS: Wai Johnston is an 87-year-old gentleman who had undergone urgent right stent insertio n at [facility] a couple of months ago because of a large obstructing calculus in the right distal urete r. DESCRIPTION OF PROCEDURE: After induction of spinal anesthesia, the patient was placed in dorsal lit hotomy position. Sequential compression devices were in place and functioning. Initial cystoscopy r evealed a normal-appearing urethra. The prostatic fossa is opened after laser enucleation. The blad preston was extensively distorted with multiple areas of irregular mucosa, but no suspicious lesions. Th e previously placed stent was seen exiting from the right ureter and was removed. A guidewire was ad vanced into the proximal collecting system. A 6 Chinese semi-rigid ureteroscope was introduced and ad vanced into the distal ureter. A few centimeters above the ureterovesical junction, a fairly large a pproximately 1.5 cm calculus was noted. Using a 550 micron Holmium laser, this was successfully frag mented into multiple fragments; all of which were retrieved. At the end of the procedure, there were no remaining sizeable fragments and 8 Chinese stent was introduced and positioned under fluoroscopy wi th good proximal and distal positioning obtained. A [place] catheter was placed for temporary bladder drainage. The patient tolerated the procedure satisfactorily and was transferred back to the [facility] in stable condition. [id number]/[facility] #: [id number]
[2017-07-15] MEDS: Ampicillin IV* 2 GM in NS 0.9% 100 ML* 100 ML IVPB SCH ×4 (04:30→20:39)
[2017-07-15] MEDS: Omeprazole CAP* 20 MG PO SCH (06:21)
[2017-07-15] MEDS: Insulin LISPRO* 1 UNITS UNIT SUBCUT SCH ×3 (08:28→18:10)
[2017-07-15] MEDS: Ferrous Sulfate TAB* 325 MG PO SCH (08:34)
[2017-07-15] MEDS: Gabapentin CAP(*) 100 MG PO SCH ×2 (08:34→20:37)
[2017-07-15] MEDS: Ascorbic Acid TAB* 500 MG PO SCH (08:34)
[2017-07-15] MEDS: Insulin GLARGINE(*) 1 UNITS UNIT SUBCUT SCH (08:34)
[2017-07-15] MEDS: Metoprolol Succinate XL TAB* 25 MG PO SCH (08:35)
[2017-07-15] MEDS: Multivitamins/Minerals TAB PO SCH (08:35)
[2017-07-15] MEDS: Folic Acid TAB* 1 MG PO SCH (08:35)
[2017-07-15] MEDS: Levothyroxine TAB* 100 MCG TAB PO SCH (08:35)
[2017-07-15] MEDS: Digoxin TAB* 0.125 MG PO SCH (08:35)
[2017-07-15] MEDS: Artificial Tears* 15 ML BTL BOTH EYES PRN (08:39)
[2017-07-15] MEDS: Cyanocobalamin TAB* 500 MCG PO SCH ×2 (08:41→10:10)
--- NOTE | 2017-07-15 11:00 | PN ---
Subjective Date of Service: 07/15/17 Interval History: No c/o. Objective Active Medications: Acetaminophen (Tylenol Tab*) 650 mg PO Q6H PRN PRN Reason: FEVER/PAIN Ascorbic Acid (Vitamin C Tab*) 500 mg PO DAILY [facility] Last Admin: 07/15/17 08:34 Dose: 500 mg Atorvastatin Calcium (Lipitor*) 10 mg PO BEDTIME [facility] Last Admin: 07/14/17 21:17 Dose: 10 mg Cyanocobalamin (Vitamin B12 Tab*) 1,000 mcg PO DAILY [facility] Last Admin: 07/15/17 10:10 Dose: 1,000 mcg Dextrose (D50w Syringe 50 Ml*) 12.5 gm IV PUSH .FOR FS < 60 - SS PRN PRN Reason: FS < 60 Digoxin (Lanoxin Tab*) 0.125 mg PO DAILY [facility] Last Admin: 07/15/17 08:35 Dose: 0.125 mg Ferrous Sulfate (Ferrous Sulfate Tab*) 325 mg PO DAILY [facility] Folic Acid (Folvite Tab*) 1 mg PO DAILY [facility] Last Admin: 07/15/17 08:35 Dose: 1 mg Gabapentin (Neurontin Cap(*)) 100 mg PO BID [facility] Last Admin: 07/15/17 08:34 Dose: 100 mg Heparin Sodium (Porcine) (Heparin Flush Picc/Ml/Cvc(*)) 1 ml FLUSH 0600,1800 [facility] PRN Reason: Protocol Last Admin: 07/15/17 06:11 Dose: 1 ml Ampicillin Sodium 2 gm/ Sodium (Chloride) 100 mls @ 200 mls/hr IVPB Q6H [facility] Last Admin: 07/15/17 10:09 Dose: 200 mls/hr Lactated Ringer's (Lactated Ringers 1000 Ml Bag*) 1,000 mls @ 150 mls/hr IV PER RATE [facility] Last Admin: 07/15/17 04:30 Dose: 150 mls/hr Insulin Glargine (Lantus(*)) 6 units SUBCUT Q24H [facility] Last Admin: 07/15/17 08:34 Dose: 6 units Insulin Human Lispro (Humalog*) 0 units SUBCUT AC [facility] PRN Reason: Protocol Last Admin: 07/15/17 08:28 Dose: Not Given Levothyroxine Sodium (Synthroid Tab*) 100 mcg PO DAILY [facility] Last Admin: 07/15/17 08:35 Dose: 100 mcg Metoprolol Succinate (Toprol Xl Tab*) 25 mg PO DAILY [facility] Last Admin: 07/15/17 08:35 Dose: 25 mg Multivitamins/Minerals (Theragran/Minerals Tab*) 1 tab PO DAILY [facility] Last Admin: 07/15/17 08:35 Dose: 1 tab Omeprazole (Prilosec Cap*) 20 mg PO 0600 [facility] Last Admin: 07/15/17 06:21 Dose: 20 mg Ondansetron HCl (Zofran Inj*) 4 mg IV Q4H PRN PRN Reason: NAUSEA Polyvinyl Alcohol (Polyvinyl Alcohol 1.4% Opth*) 1 drop BOTH EYES TID PRN PRN Reason: DRY EYE Last Admin: 07/15/17 08:39 Dose: 1 drop Vital Signs - 8 hr 07/15/17 07/15/17 07/15/17 06:12 07:15 08:00 Temperature 97.4 F Pulse Rate 77 Respiratory 20 18 Rate Blood Pressure 134/56 (mmHg) O2 Sat by Pulse 95 95 Oximetry 07/15/17 07/15/17 07/15/17 08:34 08:35 09:24 Temperature 97.4 F Pulse Rate 75 74 Respiratory 20 16 Rate Blood Pressure 134/72 (mmHg) O2 Sat by Pulse 99 Oximetry Oxygen Devices in Use Now: Nasal Cannula Appearance: Alert, supine in bed. In good spirits. Looks comfortable. Eyes: No Scleral Icterus Neck: NL Appearance and Movements; NL JVP, No Thyroid Enlargement, Masses Respiratory: Symmetrical Chest Expansion and Respiratory Effort, Clear to Auscultation, Clear to Percussion Cardiovascular: NL Sounds; No Murmurs; No JVD, RRR, No Edema, - Abdominal: NL Sounds; No Tenderness; No Distention, No Hepatosplenomegaly, - Extremities: No Edema, No Clubbing, Cyanosis, - Skin: No Rash or Ulcers, No Nodules or Sclerosis, - Neurological: Alert and Oriented x 3, NL Sensation Result Diagrams: 07/14/17 05:54 07/13/17 05:53 Additional Lab and Data: Lab Results 07/11/17 07/11/17 07/11/17 Range/Units 10:20 10:20 10:20 WBC 13.7 H (3.5-10.8) 10^3/ul RBC 2.98 L (4.0-5.4) 10^6/ul Hgb 9.2 L (14.0-18.0) g/dl Hct 29 L (42-52) % MCV 96 H (80-94) fL MCH 31 (27-31) pg MCHC 32 (31-36) g/dl RDW 22 H (10.5-15) % Plt Count 210 (150-450) 10^3/ul MPV 10 (7.4-10.4) um3 Neut % (Auto) Pending Lymph % (Auto) Pending [place] % (Auto) Pending Eos % (Auto) Pending Baso % (Auto) Pending Absolute Neuts (auto) Pending Absolute Lymphs (auto) Pending Absolute Monos (auto) Pending Absolute Eos (auto) Pending Absolute Basos (auto) Pending Absolute Nucleated RBC Pending Nucleated RBC % Pending Sodium 136 (133-145) mmol/L Potassium 4.3 (3.5-5.0) mmol/L Chloride 104 (101-111) mmol/L Carbon Dioxide 25 (22-32) mmol/L Anion Gap 7 (2-11) mmol/L BUN 32 H (6-24) mg/dL Creatinine 1.30 H (0.67-1.17) mg/dL Est GFR ( Amer) 67.3 (>60) Est GFR (Non-Af Amer) 52.3 (>60) BUN/Creatinine Ratio 24.6 H (8-20) Glucose 198 H (70-100) mg/dL Lactic Acid 2.1 H* (0.5-2.0) mmol/L Calcium 8.7 (8.6-10.3) mg/dL Total Bilirubin 0.70 (0.2-1.0) mg/dL AST 34 (13-39) U/L ALT 26 (7-52) U/L Alkaline Phosphatase 84 (34-104) U/L Troponin I Pending Total Protein 6.4 (6.4-8.9) g/dL Albumin 2.9 L (3.2-5.2) g/dL Globulin 3.5 (2-4) g/dL Albumin/Globulin Ratio 0.8 L (1-3) Assess/Plan/Problems-Billing Assessment: - Patient Problems (1) UTI (urinary tract infection) Current Visit: Yes Status: Acute Comment: 4 blood C&S pos for E. faecalis. Changed to IV ampicillin. Echo showed increased echogenicity of bioprosthetic valves. Laser lithotripsy and stent replacement done on 07/14/17. Keep [place] in as per Dr. Ac. (2) Diabetes Current Visit: Yes Status: Acute Code(s): E11.9 - TYPE 2 DIABETES MELLITUS WITHOUT COMPLICATIONS SNOMED Code(s): 71278868 Comment: Metformin on hold, small dose Lantus ordered plus Lispro by SS. (3) Atrial fibrillation Current Visit: Yes Status: Acute Code(s): I48.91 - UNSPECIFIED ATRIAL FIBRILLATION SNOMED Code(s): 43167561 Comment: Apixaban on hold until lithotripsy done. In NSR as of 07/13. Continue digoxin. (4) Hypothyroid Current Visit: Yes Status: Acute Code(s): E03.9 - HYPOTHYROIDISM, UNSPECIFIED SNOMED Code(s): 48127577 Comment: Addon TSH wnl 07/13/17. (5) Endocarditis Current Visit: Yes Status: Acute Code(s): I38 - ENDOCARDITIS, VALVE UNSPECIFIED SNOMED Code(s): 30615098 Comment: Aortic valve vegetation seen on JUAN 07/14/17. Discussed with Dr. Abdalla. He will see patient on 07/17 and add gentamycin. Continue IV ampicillin. Repeat CRP 07/16.
[2017-07-15] MEDS: Atorvastatin* 10 MG TAB PO SCH (20:37)
[2017-07-16] MEDS: Ampicillin IV* 2 GM in NS 0.9% 100 ML* 100 ML IVPB SCH ×4 (03:31→21:30)
[2017-07-16] MEDS: Omeprazole CAP* 20 MG PO SCH (05:54)
[2017-07-16] MEDS: Insulin LISPRO* 1 UNITS UNIT SUBCUT SCH ×3 (08:02→17:27)
[2017-07-16] MEDS: Ferrous Sulfate TAB* 325 MG PO SCH (09:12)
[2017-07-16] MEDS: Levothyroxine TAB* 100 MCG TAB PO SCH (09:12)
[2017-07-16] MEDS: Multivitamins/Minerals TAB PO SCH (09:12)
[2017-07-16] MEDS: Ascorbic Acid TAB* 500 MG PO SCH (09:12)
[2017-07-16] MEDS: Metoprolol Succinate XL TAB* 25 MG PO SCH (09:12)
[2017-07-16] MEDS: Gabapentin CAP(*) 100 MG PO SCH ×2 (09:12→20:31)
[2017-07-16] MEDS: Folic Acid TAB* 1 MG PO SCH (09:12)
[2017-07-16] MEDS: Cyanocobalamin TAB* 500 MCG PO SCH (09:12)
[2017-07-16] MEDS: Digoxin TAB* 0.125 MG PO SCH (09:15)
[2017-07-16] MEDS: Insulin GLARGINE(*) 1 UNITS UNIT SUBCUT SCH (09:19)
[2017-07-16] MEDS ORDERED: Apixaban* 2.5 MG TAB PO ONE (13:45)
--- NOTE | 2017-07-16 13:51 | PN ---
Subjective Date of Service: 07/16/17 Interval History: No c/o. Objective Active Medications: Acetaminophen (Tylenol Tab*) 650 mg PO Q6H PRN PRN Reason: FEVER/PAIN Apixaban (Eliquis) 2.5 mg PO BID [facility] Ascorbic Acid (Vitamin C Tab*) 500 mg PO DAILY [facility] Last Admin: 07/16/17 09:12 Dose: 500 mg Atorvastatin Calcium (Lipitor*) 10 mg PO BEDTIME [facility] Last Admin: 07/15/17 20:37 Dose: 10 mg Cyanocobalamin (Vitamin B12 Tab*) 1,000 mcg PO DAILY [facility] Last Admin: 07/16/17 09:12 Dose: 1,000 mcg Dextrose (D50w Syringe 50 Ml*) 12.5 gm IV PUSH .FOR FS < 60 - SS PRN PRN Reason: FS < 60 Digoxin (Lanoxin Tab*) 0.125 mg PO DAILY [facility] Last Admin: 07/16/17 09:15 Dose: 0.125 mg Ferrous Sulfate (Ferrous Sulfate Tab*) 325 mg PO DAILY [facility] Last Admin: 07/16/17 09:12 Dose: 325 mg Folic Acid (Folvite Tab*) 1 mg PO DAILY [facility] Last Admin: 07/16/17 09:12 Dose: 1 mg Gabapentin (Neurontin Cap(*)) 100 mg PO BID [facility] Last Admin: 07/16/17 09:12 Dose: 100 mg Heparin Sodium (Porcine) (Heparin Flush Picc/Ml/Cvc(*)) 1 ml FLUSH 0600,1800 [facility] PRN Reason: Protocol Last Admin: 07/16/17 05:54 Dose: 1 ml Ampicillin Sodium 2 gm/ Sodium (Chloride) 100 mls @ 200 mls/hr IVPB Q6H [facility] Last Admin: 07/16/17 10:42 Dose: 200 mls/hr Lactated Ringer's (Lactated Ringers 1000 Ml Bag*) 1,000 mls @ 150 mls/hr IV PER RATE [facility] Last Admin: 07/16/17 09:16 Dose: 150 mls/hr Insulin Glargine (Lantus(*)) 6 units SUBCUT Q24H [facility] Last Admin: 07/16/17 09:19 Dose: 6 units Insulin Human Lispro (Humalog*) 0 units SUBCUT AC [facility] PRN Reason: Protocol Last Admin: 07/16/17 12:55 Dose: 1 unit Levothyroxine Sodium (Synthroid Tab*) 100 mcg PO DAILY [facility] Last Admin: 07/16/17 09:12 Dose: 100 mcg Metoprolol Succinate (Toprol Xl Tab*) 25 mg PO DAILY [facility] Last Admin: 07/16/17 09:12 Dose: 25 mg Multivitamins/Minerals (Theragran/Minerals Tab*) 1 tab PO DAILY [facility] Last Admin: 07/16/17 09:12 Dose: 1 tab Omeprazole (Prilosec Cap*) 20 mg PO 0600 [facility] Last Admin: 07/16/17 05:54 Dose: 20 mg Ondansetron HCl (Zofran Inj*) 4 mg IV Q4H PRN PRN Reason: NAUSEA Polyvinyl Alcohol (Polyvinyl Alcohol 1.4% Opth*) 1 drop BOTH EYES TID PRN PRN Reason: DRY EYE Last Admin: 07/15/17 08:39 Dose: 1 drop Vital Signs - 8 hr 07/16/17 07/16/17 07/16/17 07:57 08:09 09:12 Temperature 98.1 F Pulse Rate 57 Respiratory 18 16 Rate Blood Pressure 142/62 (mmHg) O2 Sat by Pulse 98 98 Oximetry 07/16/17 07/16/17 07/16/17 09:15 09:27 11:29 Temperature 98.0 F Pulse Rate 88 76 Respiratory 16 18 Rate Blood Pressure 117/55 (mmHg) O2 Sat by Pulse 98 98 Oximetry Oxygen Devices in Use Now: Nasal Cannula Appearance: Alert, in a chair. In good spirits. Looks comfortable. Eyes: No Scleral Icterus Respiratory: Symmetrical Chest Expansion and Respiratory Effort, Clear to Auscultation, Clear to Percussion Cardiovascular: NL Sounds; No Murmurs; No JVD, RRR, No Edema, - Extremities: No Edema, No Clubbing, Cyanosis, - Skin: No Rash or Ulcers, No Nodules or Sclerosis, - Neurological: Alert and Oriented x 3, NL Sensation Result Diagrams: 07/14/17 05:54 07/16/17 06:11 Additional Lab and Data: Lab Results 07/11/17 07/11/17 07/11/17 Range/Units 10:20 10:20 10:20 WBC 13.7 H (3.5-10.8) 10^3/ul RBC 2.98 L (4.0-5.4) 10^6/ul Hgb 9.2 L (14.0-18.0) g/dl Hct 29 L (42-52) % MCV 96 H (80-94) fL MCH 31 (27-31) pg MCHC 32 (31-36) g/dl RDW 22 H (10.5-15) % Plt Count 210 (150-450) 10^3/ul MPV 10 (7.4-10.4) um3 Neut % (Auto) Pending Lymph % (Auto) Pending [place] % (Auto) Pending Eos % (Auto) Pending Baso % (Auto) Pending Absolute Neuts (auto) Pending Absolute Lymphs (auto) Pending Absolute Monos (auto) Pending Absolute Eos (auto) Pending Absolute Basos (auto) Pending Absolute Nucleated RBC Pending Nucleated RBC % Pending Sodium 136 (133-145) mmol/L Potassium 4.3 (3.5-5.0) mmol/L Chloride 104 (101-111) mmol/L Carbon Dioxide 25 (22-32) mmol/L Anion Gap 7 (2-11) mmol/L BUN 32 H (6-24) mg/dL Creatinine 1.30 H (0.67-1.17) mg/dL Est GFR ( Amer) 67.3 (>60) Est GFR (Non-Af Amer) 52.3 (>60) BUN/Creatinine Ratio 24.6 H (8-20) Glucose 198 H (70-100) mg/dL Lactic Acid 2.1 H* (0.5-2.0) mmol/L Calcium 8.7 (8.6-10.3) mg/dL Total Bilirubin 0.70 (0.2-1.0) mg/dL AST 34 (13-39) U/L ALT 26 (7-52) U/L Alkaline Phosphatase 84 (34-104) U/L Troponin I Pending Total Protein 6.4 (6.4-8.9) g/dL Albumin 2.9 L (3.2-5.2) g/dL Globulin 3.5 (2-4) g/dL Albumin/Globulin Ratio 0.8 L (1-3) Assess/Plan/Problems-Billing Assessment: - Patient Problems (1) UTI (urinary tract infection) Current Visit: Yes Status: Acute Comment: 4 blood C&S pos for E. faecalis. Changed to IV ampicillin. Echo showed increased echogenicity of bioprosthetic valves. Laser lithotripsy and stent replacement done on 07/14/17. Keep [place] in as per Dr. Ac. (2) Diabetes Current Visit: Yes Status: Acute Code(s): E11.9 - TYPE 2 DIABETES MELLITUS WITHOUT COMPLICATIONS SNOMED Code(s): 02220695 Comment: Metformin on hold, small dose Lantus ordered plus Lispro by SS. (3) Atrial fibrillation Current Visit: Yes Status: Acute Code(s): I48.91 - UNSPECIFIED ATRIAL FIBRILLATION SNOMED Code(s): 06471432 Comment: Restart apixaban 07/16. In NSR as of 07/13. Continue digoxin. (4) Hypothyroid Current Visit: Yes Status: Acute Code(s): E03.9 - HYPOTHYROIDISM, UNSPECIFIED SNOMED Code(s): 65687066 Comment: Addon TSH wnl 07/13/17. (5) Endocarditis Current Visit: Yes Status: Acute Code(s): I38 - ENDOCARDITIS, VALVE UNSPECIFIED SNOMED Code(s): 52038509 Comment: Aortic valve vegetation seen on JUAN 07/14/17. Discussed with Dr. Abdalla. He will see patient on 07/17 and add gentamycin. Continue IV ampicillin. Repeat CRP 07/16 is down to 72.
[2017-07-16] MEDS: Apixaban* 2.5 MG TAB PO SCH (20:30)
[2017-07-16] MEDS: Atorvastatin* 10 MG TAB PO SCH (20:31)
[2017-07-17] MEDS: Ampicillin IV* 2 GM in NS 0.9% 100 ML* 100 ML IVPB SCH ×4 (03:47→22:39)
[2017-07-17] MEDS: Omeprazole CAP* 20 MG PO SCH (05:59)
[2017-07-17] MEDS: Insulin LISPRO* 1 UNITS UNIT SUBCUT SCH ×3 (07:46→17:03)
[2017-07-17] MEDS: Apixaban* 2.5 MG TAB PO SCH ×2 (07:57→21:20)
[2017-07-17] MEDS: Folic Acid TAB* 1 MG PO SCH (07:57)
[2017-07-17] MEDS: Digoxin TAB* 0.125 MG PO SCH (07:57)
[2017-07-17] MEDS: Ferrous Sulfate TAB* 325 MG PO SCH (07:57)
[2017-07-17] MEDS: Insulin GLARGINE(*) 1 UNITS UNIT SUBCUT SCH (07:57)
[2017-07-17] MEDS: Multivitamins/Minerals TAB PO SCH (07:57)
[2017-07-17] MEDS: Cyanocobalamin TAB* 500 MCG PO SCH (07:58)
[2017-07-17] MEDS: Gabapentin CAP(*) 100 MG PO SCH ×2 (07:58→21:20)
[2017-07-17] MEDS: Metoprolol Succinate XL TAB* 25 MG PO SCH (07:59)
[2017-07-17] MEDS: Levothyroxine TAB* 100 MCG TAB PO SCH (07:59)
[2017-07-17] MEDS: Ascorbic Acid TAB* 500 MG PO SCH (07:59)
--- NOTE | 2017-07-17 11:54 | PN ---
Subjective Date of Service: 07/17/17 Interval History: No new c/o. Objective Active Medications: Acetaminophen (Tylenol Tab*) 650 mg PO Q6H PRN PRN Reason: FEVER/PAIN Apixaban (Eliquis) 2.5 mg PO BID [facility] Last Admin: 07/17/17 07:57 Dose: 2.5 mg Ascorbic Acid (Vitamin C Tab*) 500 mg PO DAILY [facility] Last Admin: 07/17/17 07:59 Dose: 500 mg Atorvastatin Calcium (Lipitor*) 10 mg PO BEDTIME [facility] Last Admin: 07/16/17 20:31 Dose: 10 mg Cyanocobalamin (Vitamin B12 Tab*) 1,000 mcg PO DAILY [facility] Last Admin: 07/17/17 07:58 Dose: 1,000 mcg Dextrose (D50w Syringe 50 Ml*) 12.5 gm IV PUSH .FOR FS < 60 - SS PRN PRN Reason: FS < 60 Digoxin (Lanoxin Tab*) 0.125 mg PO DAILY [facility] Last Admin: 07/17/17 07:57 Dose: 0.125 mg Ferrous Sulfate (Ferrous Sulfate Tab*) 325 mg PO DAILY [facility] Last Admin: 07/17/17 07:57 Dose: 325 mg Folic Acid (Folvite Tab*) 1 mg PO DAILY [facility] Last Admin: 07/17/17 07:57 Dose: 1 mg Gabapentin (Neurontin Cap(*)) 100 mg PO BID [facility] Last Admin: 07/17/17 07:58 Dose: 100 mg Heparin Sodium (Porcine) (Heparin Flush Picc/Ml/Cvc(*)) 1 ml FLUSH 0600,1800 [facility] PRN Reason: Protocol Last Admin: 07/17/17 05:59 Dose: 1 ml Ampicillin Sodium 2 gm/ Sodium (Chloride) 100 mls @ 200 mls/hr IVPB Q6H [facility] Last Admin: 07/17/17 09:54 Dose: 200 mls/hr Lactated Ringer's (Lactated Ringers 1000 Ml Bag*) 1,000 mls @ 150 mls/hr IV PER RATE [facility] Last Admin: 07/17/17 09:55 Dose: 150 mls/hr Ceftriaxone Sodium 2 gm/ (Sodium Chloride) 100 mls @ 200 mls/hr IVPB Q12H [facility] Insulin Glargine (Lantus(*)) 6 units SUBCUT Q24H [facility] Last Admin: 07/17/17 07:57 Dose: 6 units Insulin Human Lispro (Humalog*) 0 units SUBCUT AC [facility] PRN Reason: Protocol Last Admin: 07/17/17 07:46 Dose: Not Given Levothyroxine Sodium (Synthroid Tab*) 100 mcg PO DAILY [facility] Last Admin: 07/17/17 07:59 Dose: 100 mcg Metoprolol Succinate (Toprol Xl Tab*) 25 mg PO DAILY [facility] Last Admin: 07/17/17 07:59 Dose: 25 mg Multivitamins/Minerals (Theragran/Minerals Tab*) 1 tab PO DAILY [facility] Last Admin: 07/17/17 07:57 Dose: 1 tab Omeprazole (Prilosec Cap*) 20 mg PO 0600 [facility] Last Admin: 07/17/17 05:59 Dose: 20 mg Ondansetron HCl (Zofran Inj*) 4 mg IV Q4H PRN PRN Reason: NAUSEA Polyvinyl Alcohol (Polyvinyl Alcohol 1.4% Opth*) 1 drop BOTH EYES TID PRN PRN Reason: DRY EYE Last Admin: 07/15/17 08:39 Dose: 1 drop Vital Signs - 8 hr 07/17/17 07/17/17 07/17/17 07:51 07:57 07:58 Temperature 98.0 F Pulse Rate 67 72 Respiratory 16 18 Rate Blood Pressure 148/64 (mmHg) O2 Sat by Pulse 97 Oximetry 07/17/17 07/17/17 07/17/17 08:06 08:08 09:49 Temperature Pulse Rate Respiratory 18 18 Rate Blood Pressure (mmHg) O2 Sat by Pulse 95 Oximetry 07/17/17 10:37 Temperature Pulse Rate Respiratory Rate Blood Pressure (mmHg) O2 Sat by Pulse 95 Oximetry Oxygen Devices in Use Now: Nasal Cannula Appearance: Alert, supine in bed. Neutral affect. Looks comfortable. Eyes: No Scleral Icterus Respiratory: Symmetrical Chest Expansion and Respiratory Effort, Clear to Auscultation, Clear to Percussion Cardiovascular: NL Sounds; No Murmurs; No JVD, RRR, No Edema, - Extremities: No Edema, No Clubbing, Cyanosis, - Skin: No Rash or Ulcers, No Nodules or Sclerosis, - Neurological: Alert and Oriented x 3, NL Sensation Result Diagrams: 07/14/17 05:54 07/16/17 06:11 Additional Lab and Data: Lab Results 07/11/17 07/11/17 07/11/17 Range/Units 10:20 10:20 10:20 WBC 13.7 H (3.5-10.8) 10^3/ul RBC 2.98 L (4.0-5.4) 10^6/ul Hgb 9.2 L (14.0-18.0) g/dl Hct 29 L (42-52) % MCV 96 H (80-94) fL MCH 31 (27-31) pg MCHC 32 (31-36) g/dl RDW 22 H (10.5-15) % Plt Count 210 (150-450) 10^3/ul MPV 10 (7.4-10.4) um3 Neut % (Auto) Pending Lymph % (Auto) Pending [place] % (Auto) Pending Eos % (Auto) Pending Baso % (Auto) Pending Absolute Neuts (auto) Pending Absolute Lymphs (auto) Pending Absolute Monos (auto) Pending Absolute Eos (auto) Pending Absolute Basos (auto) Pending Absolute Nucleated RBC Pending Nucleated RBC % Pending Sodium 136 (133-145) mmol/L Potassium 4.3 (3.5-5.0) mmol/L Chloride 104 (101-111) mmol/L Carbon Dioxide 25 (22-32) mmol/L Anion Gap 7 (2-11) mmol/L BUN 32 H (6-24) mg/dL Creatinine 1.30 H (0.67-1.17) mg/dL Est GFR ( Amer) 67.3 (>60) Est GFR (Non-Af Amer) 52.3 (>60) BUN/Creatinine Ratio 24.6 H (8-20) Glucose 198 H (70-100) mg/dL Lactic Acid 2.1 H* (0.5-2.0) mmol/L Calcium 8.7 (8.6-10.3) mg/dL Total Bilirubin 0.70 (0.2-1.0) mg/dL AST 34 (13-39) U/L ALT 26 (7-52) U/L Alkaline Phosphatase 84 (34-104) U/L Troponin I Pending Total Protein 6.4 (6.4-8.9) g/dL Albumin 2.9 L (3.2-5.2) g/dL Globulin 3.5 (2-4) g/dL Albumin/Globulin Ratio 0.8 L (1-3) Assess/Plan/Problems-Billing Assessment: - Patient Problems (1) UTI (urinary tract infection) Current Visit: Yes Status: Acute Comment: 4 blood C&S pos for E. faecalis. Changed to IV ampicillin. Echo showed increased echogenicity of bioprosthetic valves. Laser lithotripsy and stent replacement done on 07/14/17. Keep [place] in as per Dr. Ac. (2) Diabetes Current Visit: Yes Status: Acute Code(s): E11.9 - TYPE 2 DIABETES MELLITUS WITHOUT COMPLICATIONS SNOMED Code(s): 73732965 Comment: Metformin on hold, small dose Lantus ordered plus Lispro by SS. (3) Atrial fibrillation Current Visit: Yes Status: Acute Code(s): I48.91 - UNSPECIFIED ATRIAL FIBRILLATION SNOMED Code(s): 02137126 Comment: Restart apixaban 07/16. In NSR as of 07/13. Continue digoxin. (4) Hypothyroid Current Visit: Yes Status: Acute Code(s): E03.9 - HYPOTHYROIDISM, UNSPECIFIED SNOMED Code(s): 96352515 Comment: Addon TSH wnl 07/13/17. (5) Endocarditis Current Visit: Yes Status: Acute Code(s): I38 - ENDOCARDITIS, VALVE UNSPECIFIED SNOMED Code(s): 82690260 Comment: Aortic valve vegetation seen on JUAN 07/14/17. Discussed with Dr. Abdalla. He recommends 6 wks of combined IV ampicillin and ceftriaxone (the E. faecalis is resistant to gentamycin). Repeat CRP 07/16 is down to 72.
[2017-07-17] MEDS: cefTRIAXone(*) 2 GM in NS 0.9% 100 ML* 100 ML IVPB SCH (21:20)
[2017-07-17] MEDS: Atorvastatin* 10 MG TAB PO SCH (21:21)
--- NOTE | 2017-07-17 22:28 | CONS ---
CONSULTATION REPORT: DATE OF CONSULT: 07/17/17 REQUESTING PHYSICIAN: Dr. Christie. CONSULTING SERVICE: Infectious Disease. REASON FOR CONSULT: Infective endocarditis. IMPRESSION: 1. 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 2. History of bioprosthetic mitral valve replacement, no vegetation seen on transesophageal echocardiogram, but presumed to be infected. 3. Right ureteral stone with ureteral stent and hydronephrosis, status post laser lithotripsy of the ureteral calculus, removal of fragments and right stent insertion on 07/14/17. 4. Diabetes. 5. Atrial fibrillation. 6. Encephalopathy and septic shock were present on admission and resolved. RECOMMENDATIONS: Continue ampicillin 2 g IV every 6 hours, dosed for his kidney function and we will add ceftriaxone 2 g IV every 12 hours given that this enterococcal isolate exhibits high level gentamicin resistance. There is also streptomycin high level resistance and there is good data that the combination of ampicillin and high dose ceftriaxone are equivalent to ampicillin and aminoglycoside and enterococcal gambell valve and prosthetic valve endocarditis. HISTORY OF PRESENT ILLNESS: This is an 87-year-old man with a history of mitral valve replacement, treated [facility] in April for obstructing right ureteral stone, it seems he had a stent placed at that time and was at a jail here, then was brought to the hospital on 07/11/17 with change in mental status and hypotension, requiring pressors. Blood cultures on admission are 4 out of 4 growing Enterococcus faecalis. The urine is growing Liz. He was taken to the operating room on 07/14/17 after he was found to have ongoing right-sided hydronephrosis. He had the stent exchange and stone removal after lithotripsy. I discussed the case with Dr. Christie and recommended transthoracic echocardiogram that showed increased echodensity of the mitral valve and then the transesophageal echocardiogram done 07/14/17 shows aortic valve vegetation with thickened leaflets and trace aortic regurgitation. He denies any pain or prosthetic material being present other than his heart valve replacement. He has decreased energy. His appetite is good. No diarrhea. PAST MEDICAL HISTORY: 1. Nephrolithiasis complicated by right ureteral stone, hydronephrosis, transferred to [facility] where he had a stent placed. 2. Diabetes. 3. History of stroke. 4. Atrial fibrillation, on anticoagulation. MEDICATIONS: 1. Tylenol. 2. Ampicillin 2 g IV every 6 hours. 3. Eliquis. 4. Lipitor. 5. Vitamin B12. 6. Ferrous sulfate. 7. Gabapentin. 8. Heparin flush through his PICC line. 9. Insulin glargine. 10. Levothyroxine. 11. Metoprolol. 12. Multivitamin. 13. Omeprazole. ALLERGIES: No known drug allergies. FAMILY HISTORY: No recurrent infections or tuberculosis. SOCIAL HISTORY: He lives at [place]. He has no travel or sick contacts. REVIEW OF SYSTEMS: All negative to 14-point review of systems except as noted above. PHYSICAL EXAM: Vital Signs: Temperature is 36.7, heart rate is 90, respiratory rate 18, blood pressure 150/60, oxygen saturation 95% on 2 L. General: He is awake, and not in distress. Neurologic: He is oriented x3. Cranial nerves II through XII are intact. Moves all extremities. HEENT: There is no conjunctival hemorrhage. Oropharynx without lesions. Neck: Supple without mass. Lymph Nodes: There is no inguinal, axillary or epitrochlear lymphadenopathy. Heart: Regular rate and rhythm without murmurs, rubs or gallops. Lungs: Clear to auscultation bilaterally. Abdomen: Soft, nontender , nondistended. There is bowel sounds present. Skin: There is no rash or splinter hemorrhages. Musculoskeletal: There is no spine tenderness to palpation or joint synovitis. DIAGNOSTIC STUDIES/LAB DATA: White blood cell count 8, hemoglobin 7, platelets 177,000. Creatinine 0.9. CRP 72, down from 112. Please see the impressions and recommendations outlined above, which I have discussed with Dr. Christie. Thank you for asking me to see Mr. Concepcion in consultation. [id number]/[facility] #: [id number] [place]
[2017-07-18] MEDS: Ampicillin IV* 2 GM in NS 0.9% 100 ML* 100 ML IVPB SCH ×4 (04:01→22:29)
[2017-07-18] MEDS: Omeprazole CAP* 20 MG PO SCH (05:42)
[2017-07-18] MEDS: Insulin LISPRO* 1 UNITS UNIT SUBCUT SCH ×3 (07:42→16:22)
[2017-07-18] MEDS: Insulin GLARGINE(*) 1 UNITS UNIT SUBCUT SCH (07:50)
[2017-07-18] MEDS: Digoxin TAB* 0.125 MG PO SCH (07:51)
[2017-07-18] MEDS: Levothyroxine TAB* 100 MCG TAB PO SCH (07:51)
[2017-07-18] MEDS: Cyanocobalamin TAB* 500 MCG PO SCH (07:51)
[2017-07-18] MEDS: Ferrous Sulfate TAB* 325 MG PO SCH (07:51)
[2017-07-18] MEDS: Metoprolol Succinate XL TAB* 25 MG PO SCH (07:51)
[2017-07-18] MEDS: Gabapentin CAP(*) 100 MG PO SCH ×2 (07:51→21:47)
[2017-07-18] MEDS: Folic Acid TAB* 1 MG PO SCH (07:51)
[2017-07-18] MEDS: Multivitamins/Minerals TAB PO SCH (07:52)
[2017-07-18] MEDS: Ascorbic Acid TAB* 500 MG PO SCH (07:52)
[2017-07-18] MEDS: Apixaban* 2.5 MG TAB PO SCH ×2 (07:53→21:46)
[2017-07-18] MEDS: cefTRIAXone(*) 2 GM in NS 0.9% 100 ML* 100 ML IVPB SCH (08:02)
--- NOTE | 2017-07-18 17:07 | PN ---
Subjective Date of Service: 07/18/17 Interval History: no overnight events. he went for a walk with pt this morning and felt good. Family History: Unchanged from Admission Social History: Unchanged from Admission Past Medical History: Unchanged from Admission Objective Active Medications: Acetaminophen (Tylenol Tab*) 650 mg PO Q6H PRN PRN Reason: FEVER/PAIN Apixaban (Eliquis) 2.5 mg PO BID [facility] Last Admin: 07/18/17 07:53 Dose: 2.5 mg Ascorbic Acid (Vitamin C Tab*) 500 mg PO DAILY [facility] Last Admin: 07/18/17 07:52 Dose: 500 mg Atorvastatin Calcium (Lipitor*) 10 mg PO BEDTIME [facility] Last Admin: 07/17/17 21:21 Dose: 10 mg Cyanocobalamin (Vitamin B12 Tab*) 1,000 mcg PO DAILY [facility] Last Admin: 07/18/17 07:51 Dose: 1,000 mcg Dextrose (D50w Syringe 50 Ml*) 12.5 gm IV PUSH .FOR FS < 60 - SS PRN PRN Reason: FS < 60 Digoxin (Lanoxin Tab*) 0.125 mg PO DAILY [facility] Last Admin: 07/18/17 07:51 Dose: 0.125 mg Ferrous Sulfate (Ferrous Sulfate Tab*) 325 mg PO DAILY [facility] Last Admin: 07/18/17 07:51 Dose: 325 mg Folic Acid (Folvite Tab*) 1 mg PO DAILY [facility] Last Admin: 07/18/17 07:51 Dose: 1 mg Gabapentin (Neurontin Cap(*)) 100 mg PO BID [facility] Last Admin: 07/18/17 07:51 Dose: 100 mg Heparin Sodium (Porcine) (Heparin Flush Picc/Ml/Cvc(*)) 1 ml FLUSH 0600,1800 [facility] PRN Reason: Protocol Last Admin: 07/18/17 16:25 Dose: 1 ml Ampicillin Sodium 2 gm/ Sodium (Chloride) 100 mls @ 200 mls/hr IVPB Q6H [facility] Last Admin: 07/18/17 15:25 Dose: 200 mls/hr Lactated Ringer's (Lactated Ringers 1000 Ml Bag*) 1,000 mls @ 150 mls/hr IV PER RATE [facility] Last Admin: 07/18/17 15:25 Dose: 150 mls/hr Ceftriaxone Sodium 2 gm/ (Dextrose) 50 mls @ 100 mls/hr IVPB Q12HR [facility] Insulin Glargine (Lantus(*)) 6 units SUBCUT Q24H [facility] Last Admin: 07/18/17 07:50 Dose: 6 units Insulin Human Lispro (Humalog*) 0 units SUBCUT AC [facility] PRN Reason: Protocol Last Admin: 07/18/17 16:22 Dose: Not Given Levothyroxine Sodium (Synthroid Tab*) 100 mcg PO DAILY [facility] Last Admin: 07/18/17 07:51 Dose: 100 mcg Metoprolol Succinate (Toprol Xl Tab*) 25 mg PO DAILY [facility] Last Admin: 07/18/17 07:51 Dose: 25 mg Multivitamins/Minerals (Theragran/Minerals Tab*) 1 tab PO DAILY [facility] Last Admin: 07/18/17 07:52 Dose: 1 tab Omeprazole (Prilosec Cap*) 20 mg PO 0600 [facility] Last Admin: 07/18/17 05:42 Dose: 20 mg Ondansetron HCl (Zofran Inj*) 4 mg IV Q4H PRN PRN Reason: NAUSEA Polyvinyl Alcohol (Polyvinyl Alcohol 1.4% Opth*) 1 drop BOTH EYES TID PRN PRN Reason: DRY EYE Last Admin: 07/15/17 08:39 Dose: 1 drop Vital Signs - 8 hr 07/18/17 07/18/17 07/18/17 09:56 11:45 15:41 Temperature 98.0 F Pulse Rate 76 Respiratory 18 16 Rate Blood Pressure 152/73 (mmHg) O2 Sat by Pulse 99 96 Oximetry 07/18/17 16:01 Temperature 98.2 F Pulse Rate 79 Respiratory 18 Rate Blood Pressure 143/70 (mmHg) O2 Sat by Pulse 99 Oximetry Oxygen Devices in Use Now: Nasal Cannula Appearance: no distress, tangential, trouble word finding Eyes: No Scleral Icterus Ears/Nose/Mouth/Throat: NL Teeth, Lips, Gums Neck: NL Appearance and Movements; NL JVP Respiratory: Symmetrical Chest Expansion and Respiratory Effort Cardiovascular: NL Sounds; No Murmurs; No JVD Abdominal: NL Sounds; No Tenderness; No Distention Lymphatic: No Cervical Adenopathy Extremities: No Edema, - - LUE picc Skin: No Rash or Ulcers Result Diagrams: 07/14/17 05:54 07/16/17 06:11 Additional Lab and Data: Lab Results 07/11/17 07/11/1718 Range/Units 10:20 10:20 10:20 WBC 13.7 H (3.5-10.8) 10^3/ul RBC 2.98 L (4.0-5.4) 10^6/ul Hgb 9.2 L (14.0-18.0) g/dl Hct 29 L (42-52) % MCV 96 H (80-94) fL MCH 31 (27-31) pg MCHC 32 (31-36) g/dl RDW 22 H (10.5-15) % Plt Count 210 (150-450) 10^3/ul MPV 10 (7.4-10.4) um3 Neut % (Auto) Pending Lymph % (Auto) Pending [place] % (Auto) Pending Eos % (Auto) Pending Baso % (Auto) Pending Absolute Neuts (auto) Pending Absolute Lymphs (auto) Pending Absolute Monos (auto) Pending Absolute Eos (auto) Pending Absolute Basos (auto) Pending Absolute Nucleated RBC Pending Nucleated RBC % Pending Sodium 136 (133-145) mmol/L Potassium 4.3 (3.5-5.0) mmol/L Chloride 104 (101-111) mmol/L Carbon Dioxide 25 (22-32) mmol/L Anion Gap 7 (2-11) mmol/L BUN 32 H (6-24) mg/dL Creatinine 1.30 H (0.67-1.17) mg/dL Est GFR ( Amer) 67.3 (>60) Est GFR (Non-Af Amer) 52.3 (>60) BUN/Creatinine Ratio 24.6 H (8-20) Glucose 198 H (70-100) mg/dL Lactic Acid 2.1 H* (0.5-2.0) mmol/L Calcium 8.7 (8.6-10.3) mg/dL Total Bilirubin 0.70 (0.2-1.0) mg/dL AST 34 (13-39) U/L ALT 26 (7-52) U/L Alkaline Phosphatase 84 (34-104) U/L Troponin I Pending Total Protein 6.4 (6.4-8.9) g/dL Albumin 2.9 L (3.2-5.2) g/dL Globulin 3.5 (2-4) g/dL Albumin/Globulin Ratio 0.8 L (1-3) Assess/Plan/Problems-Billing Assessment: - Patient Problems (1) Bacteremia due to Enterococcus Current Visit: Yes Status: Acute Code(s): R78.81 - BACTEREMIA; B95.2 - ENTEROCOCCUS THE CAUSE OF DISEASES CLASSIFIED ELSEWHERE SNOMED Code(s): 835672027071 Comment: plan for 6 weeks amp/ceftriaxone. picc in place. awaiting snf transfer (2) Diabetes Current Visit: Yes Status: Acute Code(s): E11.9 - TYPE 2 DIABETES MELLITUS WITHOUT COMPLICATIONS SNOMED Code(s): 72825088 Comment: Metformin on hold, small dose Lantus ordered plus Lispro by SS. (3) Endocarditis Current Visit: Yes Status: Acute Code(s): I38 - ENDOCARDITIS, VALVE UNSPECIFIED SNOMED Code(s): 74406932 Comment: Aortic valve vegetation seen on JUAN 07/14/17. Dr. Valdez recommends 6 wks of combined IV ampicillin and ceftriaxone (the E. faecalis is resistant to gentamycin). (4) UTI (urinary tract infection) Current Visit: Yes Status: Acute Comment: 4 blood C&S pos for E. faecalis. Laser lithotripsy and stent replacement done on 07/14/17. Keep [place] in as per Dr. Ac.
[2017-07-18] MEDS: cefTRIAXone(*) 2 GM in D5W 50 ML BAG* 50 ML IVPB SCH (21:46)
[2017-07-18] MEDS: Atorvastatin* 10 MG TAB PO SCH (21:46)
[2017-07-19] MEDS: Ampicillin IV* 2 GM in NS 0.9% 100 ML* 100 ML IVPB SCH ×5 (04:29→16:20)
[2017-07-19] MEDS: Omeprazole CAP* 20 MG PO SCH (05:16)
[2017-07-19] MEDS: Insulin GLARGINE(*) 1 UNITS UNIT SUBCUT SCH (08:28)
[2017-07-19] MEDS: Cyanocobalamin TAB* 500 MCG PO SCH (08:30)
[2017-07-19] MEDS: Gabapentin CAP(*) 100 MG PO SCH (08:30)
[2017-07-19] MEDS: Levothyroxine TAB* 100 MCG TAB PO SCH (08:31)
[2017-07-19] MEDS: Metoprolol Succinate XL TAB* 25 MG PO SCH (08:31)
[2017-07-19] MEDS: Multivitamins/Minerals TAB PO SCH (08:31)
[2017-07-19] MEDS: Folic Acid TAB* 1 MG PO SCH (08:32)
[2017-07-19] MEDS: Digoxin TAB* 0.125 MG PO SCH (08:33)
[2017-07-19] MEDS: Insulin LISPRO* 1 UNITS UNIT SUBCUT SCH ×2 (08:47→12:52)
[2017-07-19] MEDS: cefTRIAXone(*) 2 GM in D5W 50 ML BAG* 50 ML IVPB SCH (09:12)
[2017-07-19] MEDS: Ferrous Sulfate TAB* 325 MG PO SCH (09:12)
[2017-07-19] MEDS: Ascorbic Acid TAB* 500 MG PO SCH (09:12)
[2017-07-19] MEDS: Apixaban* 2.5 MG TAB PO SCH (09:13)
--- NOTE | 2017-07-19 10:47 | PN ---
Progress Note - Progress Note Date of Service: 07/19/17 SOAP: Subjective: CC: endocarditis HPI: 87 year old man with right ureteral stone and hydronephrosis with ureteral stent, s/p lithotripsy and stent replacement. Feels well, no fever rash or diarrhea. Objective: Vital Signs Temp 36.7 C 07/19/17 03:30 Pulse 80 07/19/17 08:33 Resp 16 07/19/17 10:30 BP 141/68 07/19/17 03:30 Pulse Ox 93 07/19/17 03:30 Intake & Output 07/18/17 07/19/17 07/19/17 18:59 06:59 18:59 Intake Total 1240 1110 893 Output Total 580 600 300 Balance 660 510 593 Intake: IV Fluids 1000 1110 590 ABX - CEFTRIAXONE 110 LR 1000 1000 590 IVPB 53 ABX - CEFTRIAXONE 53 Oral 240 250 Output: Urine 580 300 [place] 600 Other: Estimated Void Medium # Bowel Movements 1 Estimated Stool Amount Medium # Voids 2 Gen:awake, no distress HEENT:PERRL, MMM Heart:RRR no murmur Lungs:CTA BL Abd:+BS NTND soft Skin: no rash MSK: no spine tenderness Laboratory Results - last 24 hr 07/18/17 07/18/17 07/19/17 11:18 16:21 07:57 POC Glucose (mg/dL) 203 H 83 147 H Microbiology 07/11/17 11:32 Urine Urine Culture - Final Liz Albicans 07/11/17 12:22 Blood Venous Aerobic Blood Culture - Final Enterococcus Faecalis 07/11/17 12:22 Blood Venous Anaerobic Blood Culture - Final Enterococcus Faecalis 07/11/17 10:20 Blood Venous Aerobic Blood Culture - Final Enterococcus Faecalis 07/11/17 10:20 Blood Venous Anaerobic Blood Culture - Final Enterococcus Faecalis 07/11/17 11:25 Stool Stool Occult Blood (JOHN) - Final Assessment: 1. 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 ureterolithiasis with hydronephrosis s/p ureteral stent replacement and lithotripsy Plan: 1. continue ceftriaxone 2 gm IV Q12hrs and incr amp 2 gm IV Q4hrs as his GFR is improving, day ; weekly cbc, cmp, crp 35 minutes floor time >50% face to face discussing antibiotic treatments
[2017-07-19] MEDS ORDERED: Ampicillin IV* 2 GM in NS 0.9% 100 ML* 100 ML IVPB SCH (11:00)
[2017-07-19 11:32] VITALS: BP 150/77
== END 2017-07-19 16:00 | disposition swing bed (61) | DRG 853 ==
LOC: ED 09:17 → ICU 17:12 → MEDTELE 07-12 16:02 → MED 07-15 17:02
PROVIDERS: ADMIT Internal Medicine Critical Care Medicine; ATTEND Internal Medicine
PROC: 02HV33Z Insertion of Infusion Device into Superior Vena Cava, Percutaneous Approach (ICD-10-PCS; principal; 2017-07-11)
PROC: 3E043XZ Introduction of Vasopressor into Central Vein, Percutaneous Approach (ICD-10-PCS; 2017-07-11)
PROC: 30233N1 Transfusion of Nonautologous Red Blood Cells into Peripheral Vein, Percutaneous Approach (ICD-10-PCS; 2017-07-13)
PROC: 0TC68ZZ Extirpation of Matter from Right Ureter, Via Natural or Artificial Opening Endoscopic (ICD-10-PCS; 2017-07-14)
PROC: 0T768DZ Dilation of Right Ureter with Intraluminal Device, Via Natural or Artificial Opening Endoscopic (ICD-10-PCS; 2017-07-14)
PROC: BT1DZZZ Fluoroscopy of Right Kidney, Ureter and Bladder (ICD-10-PCS; 2017-07-14)
PROC: B24BZZ4 Ultrasonography of Heart with Aorta, Transesophageal (ICD-10-PCS; 2017-07-14)
PROC: 0TP98DZ Removal of Intraluminal Device from Ureter, Via Natural or Artificial Opening Endoscopic (ICD-10-PCS; 2017-07-14)
DX: A41.81 Sepsis due to Enterococcus (principal); G93.41 Metabolic encephalopathy; I33.0 Acute and subacute infective endocarditis; N17.9 Acute kidney failure, unspecified; E27.40 Unspecified adrenocortical insufficiency; I48.0 Paroxysmal atrial fibrillation; E11.9 Type 2 diabetes mellitus without complications; D50.9 Iron deficiency anemia, unspecified; N13.6 Pyonephrosis; I10 Essential (primary) hypertension; R65.20 Severe sepsis without septic shock; N13.9 Obstructive and reflux uropathy, unspecified; R19.5 Other fecal abnormalities; I25.10 Atherosclerotic heart disease of native coronary artery without angina pectoris; B95.2 Enterococcus as the cause of diseases classified elsewhere; Z66 Do not resuscitate; W19.XXXA Unspecified fall, initial encounter; E03.9 Hypothyroidism, unspecified; I34.0 Nonrheumatic mitral (valve) insufficiency; N40.0 Benign prostatic hyperplasia without lower urinary tract symptoms; E78.00 Pure hypercholesterolemia, unspecified; K21.9 Gastro-esophageal reflux disease without esophagitis; M19.90 Unspecified osteoarthritis, unspecified site; Z95.1 Presence of aortocoronary bypass graft; Z86.73 Personal history of transient ischemic attack (TIA), and cerebral infarction without residual deficits; Z87.440 Personal history of urinary (tract) infections; Y92.129 Unspecified place in nursing home as the place of occurrence of the external cause; Y92.121 Bathroom in nursing home as the place of occurrence of the external cause
CPT/HCPCS: 36415; 70450; 71045; 71046; 74176; 74420; 76775; 80048; 80053; 81003; 81015; 82270; 82365; 82728; 83540; 83550; 83605; 83735; 84100; 84443; 84484; 85014; 85018; 85025; 85045; 85610; 86140; 86850; 86900; 86901; 86922; 87040; 87077; 87086; 87106; 87186; 87205; 88300; 93005; 93306; 93312; 94760; 99285; A9270-GY; C2625; J0290; J0696; J1580; J1720; J1940; J2250; J2310; J2400; J2543; J3010; J3475; J3480; P9040

== ENCOUNTER 2017-07-19 17:08 | Inpatient (IN) | payer MEDICARE, BC ==
[2017-07-20] MEDS ORDERED: Dextrose 50% Syringe 50 ML* 25 GM/50 ML SYRINGE IV PUSH PRN (00:16)
[2017-07-20] MEDS ORDERED: Acetaminophen TAB* 325 MG PO PRN (00:29)
[2017-07-20] MEDS: cefTRIAXone(*) 2 GM in D5W 50 ML BAG* 50 ML IVPB SCH ×2 (00:37→12:47)
[2017-07-20] MEDS: Apixaban* 2.5 MG TAB PO SCH ×3 (00:41→21:32)
[2017-07-20] MEDS: Atorvastatin* 10 MG TAB PO SCH ×2 (00:41→21:32)
[2017-07-20] MEDS: Gabapentin CAP(*) 100 MG PO SCH ×3 (00:41→21:32)
[2017-07-20] MEDS: Artificial Tears* 15 ML BTL BOTH EYES PRN (00:45)
[2017-07-20] MEDS: AMPICILLIN IVPB SCH ×6 (01:35→21:29)
[2017-07-20] MEDS: NS 0.9% IVPB SCH ×6 (01:35→21:29)
[2017-07-20] MEDS: Levothyroxine TAB* 100 MCG TAB PO SCH (05:34)
[2017-07-20] MEDS: Omeprazole CAP* 20 MG PO SCH (05:34)
[2017-07-20] MEDS: Insulin LISPRO* 1 UNITS UNIT SUBCUT SCH ×3 (07:47→16:46)
[2017-07-20] MEDS: Insulin GLARGINE(*) 1 UNITS UNIT SUBCUT SCH (07:54)
[2017-07-20] MEDS: Cyanocobalamin TAB* 500 MCG PO SCH (07:56)
[2017-07-20] MEDS: Multivitamins/Minerals TAB PO SCH (07:56)
[2017-07-20] MEDS: Metoprolol Succinate XL TAB* 25 MG PO SCH (07:57)
[2017-07-20] MEDS: Ascorbic Acid TAB* 500 MG PO SCH (07:57)
[2017-07-20] MEDS: Folic Acid TAB* 1 MG PO SCH (07:57)
[2017-07-20] MEDS: Ferrous Sulfate TAB* 325 MG PO SCH (07:57)
[2017-07-20] MEDS: Digoxin TAB* 0.125 MG PO SCH (16:49)
[2017-07-21] MEDS: cefTRIAXone(*) 2 GM in D5W 50 ML BAG* 50 ML IVPB SCH ×2 (00:59→12:02)
[2017-07-21] MEDS: NS 0.9% IVPB SCH ×6 (01:51→21:04)
[2017-07-21] MEDS: AMPICILLIN IVPB SCH ×6 (01:51→21:04)
[2017-07-21] MEDS: Levothyroxine TAB* 100 MCG TAB PO SCH (05:41)
[2017-07-21] MEDS: Omeprazole CAP* 20 MG PO SCH (05:42)
[2017-07-21] MEDS: Insulin LISPRO* 1 UNITS UNIT SUBCUT SCH ×3 (07:27→16:55)
[2017-07-21] MEDS: Metoprolol Succinate XL TAB* 25 MG PO SCH (08:27)
[2017-07-21] MEDS: Insulin GLARGINE(*) 1 UNITS UNIT SUBCUT SCH (08:28)
[2017-07-21] MEDS: Gabapentin CAP(*) 100 MG PO SCH ×2 (08:28→21:06)
[2017-07-21] MEDS: Multivitamins/Minerals TAB PO SCH (08:28)
[2017-07-21] MEDS: Cyanocobalamin TAB* 500 MCG PO SCH (08:28)
[2017-07-21] MEDS: Ferrous Sulfate TAB* 325 MG PO SCH (08:28)
[2017-07-21] MEDS: Apixaban* 2.5 MG TAB PO SCH ×2 (08:28→21:06)
[2017-07-21] MEDS: Folic Acid TAB* 1 MG PO SCH (08:28)
[2017-07-21] MEDS: Ascorbic Acid TAB* 500 MG PO SCH (08:28)
[2017-07-21] MEDS ORDERED: cefTRIAXone(*) 2 GM in NS 0.9% 100 ML* 100 ML IVPB SCH (14:05)
--- NOTE | 2017-07-21 14:38 | PN ---
Progress Note - Progress Note Date of Service: 07/21/17 SOAP: Subjective: CC: endocarditis HPI: 87 year old man with ureteral stone/stent and Enterococcal bacteremia, found to have aortic valve vegetation. No problems with PICC. No fever, rash, or diarrhea. Objective: Vital Signs Temp 35.8 C 07/21/17 08:43 Pulse 81 07/21/17 11:20 Resp 16 07/21/17 11:20 BP 128/52 07/21/17 11:20 Pulse Ox 100 07/21/17 11:20 Intake & Output 07/20/17 07/21/17 07/21/17 18:59 06:59 18:59 Intake Total 6713 835 2925 Output Total 775 660 300 Balance 915 -20 1880 Weight 125 lb 3.2 oz Intake: Oral 3398 159 4997 Output: Urine 775 660 300 Other: Estimated Void Large # Bowel Movements 1 0 Estimated Stool Amount Small Medium # Voids 1 1 Gen:awake, no distress HEENT:PERRL, MMM Heart:RRR no murmur Lungs:CTA BL Abd:+BS NTND soft Skin: no rash MSK: no spine tenderness Laboratory Results - last 24 hr 07/20/17 07/21/17 16:45 11:37 POC Glucose (mg/dL) 89 189 H Assessment: 1. Enterococcal infective endocarditis, aortic valve 2. R ureteral stone and stent 3. diabetes mellitus Plan: 1. amp 2 gm IV Q4hrs/ceftriaxone 2 gm IV Q12hrs day ; weekly cbc, cmp, crp. Follow up JUAN last week of antibiotics. 25 minutes floor time >50% face to face discussing antibiotic treatment
[2017-07-21] MEDS: Digoxin TAB* 0.125 MG PO SCH (17:21)
[2017-07-21] MEDS: Atorvastatin* 10 MG TAB PO SCH (21:06)
[2017-07-21] MEDS: cefTRIAXone(*) 2 GM in NS 0.9% 100 ML* 100 ML IVPB SCH (23:10)
[2017-07-22] MEDS: NS 0.9% IVPB SCH ×6 (01:06→22:35)
[2017-07-22] MEDS: AMPICILLIN IVPB SCH ×6 (01:06→22:35)
[2017-07-22] MEDS: Omeprazole CAP* 20 MG PO SCH (06:08)
[2017-07-22] MEDS: Levothyroxine TAB* 100 MCG TAB PO SCH (06:08)
[2017-07-22 06:24] LABS: Hematocrit 32 % (42-52); Hemoglobin 10.5 g/dl (14.0-18.0); Mean Corpuscular HGB Conc 33 g/dl (31-36); Mean Corpuscular Hemoglobin 31 pg (27-31); Mean Corpuscular Volume 94 fL (80-94); Mean Platelet Volume 10 um3 (7.4-10.4); Platelet Count 225 10^3/ul (150-450); Red Blood Count 3.41 10^6/ul (4.0-5.4); Red Cell Distribution Width 21 % (10.5-15); White Blood Count 6.8 10^3/ul (3.5-10.8)
[2017-07-22 06:41] LABS: EGFR Non-African American 59.7 (>60)
[2017-07-22 07:09] LABS: ABS Basophils 0.2 10^3/ul (0-0.2); ABS Eosinophils 0.1 10^3/ul (0-0.6); ABS Lymphocytes 1.5 10^3/ul (1.0-4.8); ABS Monocytes 0.2 10^3/ul (0-0.8); ABS Neutrophils 4.9 10^3/ul (1.5-7.7); ABS Nucleated RBC 0 10^3/ul; Eosinophil % 1.3 % (0-6); Lymphocyte % 21.8 % (25-47); Nucleated Red Blood Cells % 0.1
[2017-07-22] MEDS: Insulin LISPRO* 1 UNITS UNIT SUBCUT SCH ×3 (07:19→16:57)
[2017-07-22] MEDS: Multivitamins/Minerals TAB PO SCH (08:09)
[2017-07-22] MEDS: Ferrous Sulfate TAB* 325 MG PO SCH (08:09)
[2017-07-22] MEDS: Metoprolol Succinate XL TAB* 25 MG PO SCH (08:09)
[2017-07-22] MEDS: Apixaban* 2.5 MG TAB PO SCH ×2 (08:09→22:36)
[2017-07-22] MEDS: Folic Acid TAB* 1 MG PO SCH (08:10)
[2017-07-22] MEDS: Cyanocobalamin TAB* 500 MCG PO SCH (08:10)
[2017-07-22] MEDS: Insulin GLARGINE(*) 1 UNITS UNIT SUBCUT SCH (08:10)
[2017-07-22] MEDS: Gabapentin CAP(*) 100 MG PO SCH ×2 (08:10→22:36)
[2017-07-22] MEDS: Ascorbic Acid TAB* 500 MG PO SCH (08:10)
[2017-07-22] MEDS: cefTRIAXone(*) 2 GM in NS 0.9% 100 ML* 100 ML IVPB SCH ×2 (11:11→23:18)
[2017-07-22] MEDS: Digoxin TAB* 0.125 MG PO SCH (16:58)
[2017-07-22] MEDS: Atorvastatin* 10 MG TAB PO SCH (22:36)
[2017-07-23] MEDS: AMPICILLIN IVPB SCH ×6 (01:43→21:25)
[2017-07-23] MEDS: NS 0.9% IVPB SCH ×6 (01:43→21:25)
[2017-07-23] MEDS: Omeprazole CAP* 20 MG PO SCH (05:19)
[2017-07-23] MEDS: Levothyroxine TAB* 100 MCG TAB PO SCH (05:19)
[2017-07-23] MEDS: Insulin LISPRO* 1 UNITS UNIT SUBCUT SCH ×3 (08:15→17:53)
[2017-07-23] MEDS: Insulin GLARGINE(*) 1 UNITS UNIT SUBCUT SCH (10:25)
[2017-07-23] MEDS: Multivitamins/Minerals TAB PO SCH (10:26)
[2017-07-23] MEDS: Ascorbic Acid TAB* 500 MG PO SCH (10:26)
[2017-07-23] MEDS: Folic Acid TAB* 1 MG PO SCH (10:26)
[2017-07-23] MEDS: Cyanocobalamin TAB* 500 MCG PO SCH (10:26)
[2017-07-23] MEDS: Gabapentin CAP(*) 100 MG PO SCH ×2 (10:26→19:52)
[2017-07-23] MEDS: Ferrous Sulfate TAB* 325 MG PO SCH (10:26)
[2017-07-23] MEDS: Metoprolol Succinate XL TAB* 25 MG PO SCH (10:26)
[2017-07-23] MEDS: Apixaban* 2.5 MG TAB PO SCH ×2 (10:26→19:52)
[2017-07-23] MEDS: cefTRIAXone(*) 2 GM in NS 0.9% 100 ML* 100 ML IVPB SCH ×2 (11:40→22:32)
[2017-07-23] MEDS: Digoxin TAB* 0.125 MG PO SCH (18:19)
[2017-07-23] MEDS: Atorvastatin* 10 MG TAB PO SCH (19:52)
[2017-07-24] MEDS: AMPICILLIN IVPB SCH ×6 (00:30→20:26)
[2017-07-24] MEDS: NS 0.9% IVPB SCH ×6 (00:30→20:26)
[2017-07-24] MEDS: Levothyroxine TAB* 100 MCG TAB PO SCH (06:29)
[2017-07-24] MEDS: Omeprazole CAP* 20 MG PO SCH (06:29)
[2017-07-24] MEDS: Gabapentin CAP(*) 100 MG PO SCH ×2 (09:38→20:28)
[2017-07-24] MEDS: Apixaban* 2.5 MG TAB PO SCH ×2 (09:41→20:28)
[2017-07-24] MEDS: Multivitamins/Minerals TAB PO SCH (09:41)
[2017-07-24] MEDS: Ferrous Sulfate TAB* 325 MG PO SCH (09:42)
[2017-07-24] MEDS: Metoprolol Succinate XL TAB* 25 MG PO SCH (09:42)
[2017-07-24] MEDS: Folic Acid TAB* 1 MG PO SCH (09:42)
[2017-07-24] MEDS: Ascorbic Acid TAB* 500 MG PO SCH (09:42)
[2017-07-24] MEDS: Insulin LISPRO* 1 UNITS UNIT SUBCUT SCH ×3 (09:43→17:02)
[2017-07-24] MEDS: Cyanocobalamin TAB* 500 MCG PO SCH (09:43)
[2017-07-24] MEDS: Insulin GLARGINE(*) 1 UNITS UNIT SUBCUT SCH (09:43)
[2017-07-24] MEDS: cefTRIAXone(*) 2 GM in NS 0.9% 100 ML* 100 ML IVPB SCH ×2 (11:07→23:06)
--- NOTE | 2017-07-24 11:10 | PN ---
Progress Note - Progress Note Date of Service: 07/24/17 SOAP: Subjective: CC: endocarditis HPI: 87 year old man with ureteral stone/stent and Enterococcal bacteremia, found to have aortic valve vegetation. No problems with PICC. Appetite good, feels well, wants PT. Objective: Vital Signs Temp 36.6 C 07/24/17 07:27 Pulse 92 07/24/17 07:27 Resp 16 07/24/17 09:38 BP 121/65 07/24/17 07:27 Pulse Ox 99 07/24/17 07:27 Intake & Output 07/23/17 07/24/17 07/24/17 18:59 06:59 18:59 Intake Total 1070 1081 240 Output Total 350 Balance 1070 731 240 Intake: IV Fluids 60 77 NS (0.9%) 60 77 IVPB 300 504 ABX - AMPICILLIN 200 ABX - CEFTRIAXONE 100 NS (0.9%) 504 Oral 710 500 240 Output: Urine 350 Other: Estimated Void Medium Medium Medium # Bowel Movements 2 1 1 Estimated Stool Amount Small Medium Medium # Voids 2 2 1 Gen:awake, no distress HEENT:PERRL, MMM Heart:RRR no murmur Lungs:CTA BL Abd:+BS NTND soft Skin: no rash MSK: no spine tenderness Laboratory Results - last 24 hr 07/23/17 07/23/17 07/24/17 11:43 17:27 07:42 POC Glucose (mg/dL) 250 H 132 H 149 H Assessment: 1. Enterococcal infective endocarditis, aortic valve 2. R ureteral stone and stent 3. diabetes mellitus Plan: 1. amp 2 gm IV Q4hrs/ceftriaxone 2 gm IV Q12hrs day ; weekly cbc, cmp, crp. Follow up JUAN last week of antibiotics. Will check with Dr Ac regarding stone treatment while he is here on antibiotics.
[2017-07-24] MEDS: Digoxin TAB* 0.125 MG PO SCH (17:16)
[2017-07-24] MEDS: Atorvastatin* 10 MG TAB PO SCH (20:28)
[2017-07-25] MEDS: NS 0.9% IVPB SCH ×6 (01:13→20:25)
[2017-07-25] MEDS: AMPICILLIN IVPB SCH ×6 (01:13→20:25)
[2017-07-25] MEDS: Omeprazole CAP* 20 MG PO SCH (05:42)
[2017-07-25] MEDS: Levothyroxine TAB* 100 MCG TAB PO SCH (05:43)
[2017-07-25] MEDS: Insulin LISPRO* 1 UNITS UNIT SUBCUT SCH ×3 (08:28→16:49)
[2017-07-25] MEDS: Insulin GLARGINE(*) 1 UNITS UNIT SUBCUT SCH (09:28)
[2017-07-25] MEDS: Metoprolol Succinate XL TAB* 25 MG PO SCH (10:33)
[2017-07-25] MEDS: Multivitamins/Minerals TAB PO SCH (10:33)
[2017-07-25] MEDS: Ferrous Sulfate TAB* 325 MG PO SCH (10:33)
[2017-07-25] MEDS: Cyanocobalamin TAB* 500 MCG PO SCH (10:33)
[2017-07-25] MEDS: Apixaban* 2.5 MG TAB PO SCH ×2 (10:33→20:25)
[2017-07-25] MEDS: Folic Acid TAB* 1 MG PO SCH (10:34)
[2017-07-25] MEDS: Gabapentin CAP(*) 100 MG PO SCH ×2 (10:34→20:25)
[2017-07-25] MEDS: Ascorbic Acid TAB* 500 MG PO SCH (10:34)
--- NOTE | 2017-07-25 13:18 | PN ---
Subjective Date of Service: 07/25/17 Interval History: pt has no complaints, apart for felling bored Objective Active Medications: Acetaminophen (Tylenol Tab*) 650 mg PO Q6H PRN PRN Reason: FEVER/PAIN Apixaban (Eliquis) 2.5 mg PO BID [facility] Last Admin: 07/25/17 10:33 Dose: 2.5 mg Ascorbic Acid (Vitamin C Tab*) 500 mg PO DAILY [facility] Last Admin: 07/25/17 10:34 Dose: 500 mg Atorvastatin Calcium (Lipitor*) 10 mg PO BEDTIME [facility] Last Admin: 07/24/17 20:28 Dose: 10 mg Cyanocobalamin (Vitamin B12 Tab*) 1,000 mcg PO DAILY [facility] Last Admin: 07/25/17 10:33 Dose: 1,000 mcg Dextrose (D50w Syringe 50 Ml*) 12.5 gm IV PUSH .FOR FS < 60 - SS PRN PRN Reason: FS < 60 Digoxin (Lanoxin Tab*) 0.125 mg PO DAILY@1700 [facility] Last Admin: 07/24/17 17:16 Dose: 0.125 mg Ferrous Sulfate (Ferrous Sulfate Tab*) 325 mg PO DAILY [facility] Last Admin: 07/25/17 10:33 Dose: 325 mg Folic Acid (Folvite Tab*) 1 mg PO DAILY [facility] Last Admin: 07/25/17 10:34 Dose: 1 mg Gabapentin (Neurontin Cap(*)) 100 mg PO BID [facility] Last Admin: 07/25/17 10:34 Dose: 100 mg Heparin Sodium (Porcine) (Heparin Flush Picc/Ml/Cvc(*)) 1 - 3 ml FLUSH 0600, 1800 [facility] PRN Reason: Protocol Last Admin: 07/25/17 05:39 Dose: Not Given Ampicillin Sodium 2 gm/ Sodium (Chloride) 100 mls @ 200 mls/hr IVPB Q4H [facility] Last Admin: 07/25/17 10:38 Dose: 200 mls/hr Ceftriaxone Sodium 2 gm/ (Sodium Chloride) 100 mls @ 200 mls/hr IVPB Q12H [facility] Last Admin: 07/24/17 23:06 Dose: 200 mls/hr Insulin Glargine (Lantus(*)) 6 units SUBCUT Q24H [facility] Last Admin: 07/25/17 09:28 Dose: 6 units Insulin Human Lispro (Humalog*) 0 units SUBCUT AC [facility] PRN Reason: Protocol Last Admin: 07/25/17 11:48 Dose: Not Given Levothyroxine Sodium (Synthroid Tab*) 100 mcg PO DAILY@0600 [facility] Last Admin: 07/25/17 05:43 Dose: 100 mcg Metoprolol Succinate (Toprol Xl Tab*) 25 mg PO DAILY [facility] Last Admin: 07/25/17 10:33 Dose: 25 mg Multivitamins/Minerals (Theragran/Minerals Tab*) 1 tab PO DAILY [facility] Last Admin: 07/25/17 10:33 Dose: 1 tab Omeprazole (Prilosec Cap*) 20 mg PO 0600 [facility] Last Admin: 07/25/17 05:42 Dose: 20 mg Polyvinyl Alcohol (Polyvinyl Alcohol 1.4% Opth*) 1 drop BOTH EYES TID PRN PRN Reason: DRY EYE Last Admin: 07/20/17 00:45 Dose: 1 drop Vital Signs - 8 hr 07/25/17 07/25/17 07/25/17 07:30 08:00 08:38 Temperature 97.7 F Pulse Rate 79 Respiratory 16 18 Rate Blood Pressure 141/57 (mmHg) O2 Sat by Pulse 92 99 Oximetry 07/25/17 10:34 Temperature Pulse Rate Respiratory 18 Rate Blood Pressure (mmHg) O2 Sat by Pulse Oximetry Oxygen Devices in Use Now: None Appearance: 87 yo M in nAD, AAOx3 Eyes: No Scleral Icterus, PERRLA Ears/Nose/Mouth/Throat: NL Teeth, Lips, Gums, Mucous Membranes Moist Neck: NL Appearance and Movements; NL JVP, Trachea Midline Respiratory: Symmetrical Chest Expansion and Respiratory Effort, Clear to Auscultation Cardiovascular: NL Sounds; No Murmurs; No JVD, RRR, No Edema Abdominal: NL Sounds; No Tenderness; No Distention Lymphatic: No Cervical Adenopathy Extremities: No Edema Skin: No Rash or Ulcers, No Nodules or Sclerosis Neurological: Alert and Oriented x 3, NL Muscle Strength and Tone Result Diagrams: 07/22/17 06:10 07/22/17 06:10 Assess/Plan/Problems-Billing Assessment: 87 year old man with ureteral stone/stent and Enterococcal bacteremia, found to have aortic valve vegetation. R ureteral stent and lithotrypsy performed by Dr. Ac on 07/14/17 now on SWING status. - Patient Problems (1) Bacteremia due to Enterococcus Comment: plan for 6 weeks amp/ceftriaxone.Today day Please note pt also has aortic valve endocarditis and will need repeat JUAN in the last week of his antibiotics (2) Hypothyroid Comment: TSH wnl 07/13/17. cont curent synthroid (3) Atrial fibrillation Comment: cont apixaban. In NSR today. Continue digoxin. (4) Endocarditis Comment: Aortic valve vegetation seen on JUAN 07/14/17. (5) UTI (urinary tract infection) Comment: 4 blood C&S pos for E. faecalis. Laser lithotripsy and stent replacement done on 07/14/17. Keep [place] in as per Dr. Ac. Called Dr. Chavez who will eval pt for stent removed when pt is in hospital. (6) Diabetes Comment: will restart Metformin on hold, d/c Lantus Lantus , cont Lispro by SS. (7) DVT prophylaxis Comment: Eliquis Status and Disposition: SWING
[2017-07-25] MEDS: cefTRIAXone(*) 2 GM in NS 0.9% 100 ML* 100 ML IVPB SCH ×2 (13:23→22:32)
[2017-07-25] MEDS: Digoxin TAB* 0.125 MG PO SCH (17:39)
[2017-07-25] MEDS: Atorvastatin* 10 MG TAB PO SCH (20:25)
[2017-07-26] MEDS: AMPICILLIN IVPB SCH ×6 (01:16→20:40)
[2017-07-26] MEDS: NS 0.9% IVPB SCH ×6 (01:16→20:40)
[2017-07-26] MEDS: Levothyroxine TAB* 100 MCG TAB PO SCH (05:54)
[2017-07-26] MEDS: Omeprazole CAP* 20 MG PO SCH (05:54)
[2017-07-26] MEDS: Insulin LISPRO* 1 UNITS UNIT SUBCUT SCH ×3 (07:28→17:48)
[2017-07-26] MEDS: Metoprolol Succinate XL TAB* 25 MG PO SCH (08:42)
[2017-07-26] MEDS: Apixaban* 2.5 MG TAB PO SCH ×2 (08:42→20:40)
[2017-07-26] MEDS: Multivitamins/Minerals TAB PO SCH (08:42)
[2017-07-26] MEDS: Ascorbic Acid TAB* 500 MG PO SCH (08:43)
[2017-07-26] MEDS: Folic Acid TAB* 1 MG PO SCH (08:43)
[2017-07-26] MEDS: Ferrous Sulfate TAB* 325 MG PO SCH (08:43)
[2017-07-26] MEDS: Gabapentin CAP(*) 100 MG PO SCH ×2 (08:44→20:40)
[2017-07-26] MEDS: metFORMIN* 500 MG TAB PO SCH (08:44)
[2017-07-26] MEDS: Cyanocobalamin TAB* 500 MCG PO SCH (08:44)
[2017-07-26] MEDS: cefTRIAXone(*) 2 GM in NS 0.9% 100 ML* 100 ML IVPB SCH ×2 (10:52→23:35)
[2017-07-26] MEDS: Digoxin TAB* 0.125 MG PO SCH (17:01)
[2017-07-26] MEDS ORDERED: NS 0.9% 100 ML* 100 ML ONE (20:34)
[2017-07-26] MEDS: Atorvastatin* 10 MG TAB PO SCH (20:40)
[2017-07-27] MEDS: NS 0.9% IVPB SCH ×6 (01:12→22:14)
[2017-07-27] MEDS: AMPICILLIN IVPB SCH ×6 (01:12→22:14)
[2017-07-27] MEDS: Levothyroxine TAB* 100 MCG TAB PO SCH (06:02)
[2017-07-27] MEDS: Omeprazole CAP* 20 MG PO SCH (06:02)
[2017-07-27] MEDS: Insulin LISPRO* 1 UNITS UNIT SUBCUT SCH ×3 (09:08→17:44)
[2017-07-27] MEDS: metFORMIN* 500 MG TAB PO SCH (09:27)
[2017-07-27] MEDS: Gabapentin CAP(*) 100 MG PO SCH ×2 (09:27→22:14)
[2017-07-27] MEDS: Folic Acid TAB* 1 MG PO SCH (09:27)
[2017-07-27] MEDS: Apixaban* 2.5 MG TAB PO SCH ×2 (09:27→22:14)
[2017-07-27] MEDS: Multivitamins/Minerals TAB PO SCH (09:27)
[2017-07-27] MEDS: Ferrous Sulfate TAB* 325 MG PO SCH (09:27)
[2017-07-27] MEDS: Metoprolol Succinate XL TAB* 25 MG PO SCH (09:27)
[2017-07-27] MEDS: Ascorbic Acid TAB* 500 MG PO SCH (09:27)
[2017-07-27] MEDS: Cyanocobalamin TAB* 500 MCG PO SCH (09:28)
[2017-07-27] MEDS: cefTRIAXone(*) 2 GM in NS 0.9% 100 ML* 100 ML IVPB SCH ×2 (10:46→23:23)
[2017-07-27] MEDS: Digoxin TAB* 0.125 MG PO SCH (17:46)
[2017-07-27] MEDS: Atorvastatin* 10 MG TAB PO SCH (22:15)
[2017-07-28] MEDS: NS 0.9% IVPB SCH ×6 (01:41→20:44)
[2017-07-28] MEDS: AMPICILLIN IVPB SCH ×6 (01:41→20:44)
[2017-07-28] MEDS: Omeprazole CAP* 20 MG PO SCH (06:13)
[2017-07-28] MEDS: Levothyroxine TAB* 100 MCG TAB PO SCH (06:13)
[2017-07-28] MEDS ORDERED: Lidocaine 2% JELLY* 20 ML (for OR use) ONE (07:43)
[2017-07-28] MEDS: Insulin LISPRO* 1 UNITS UNIT SUBCUT SCH ×3 (08:42→17:14)
[2017-07-28] MEDS: Folic Acid TAB* 1 MG PO SCH (09:36)
[2017-07-28] MEDS: Ascorbic Acid TAB* 500 MG PO SCH (09:36)
[2017-07-28] MEDS: Multivitamins/Minerals TAB PO SCH (09:36)
[2017-07-28] MEDS: Cyanocobalamin TAB* 500 MCG PO SCH (09:36)
[2017-07-28] MEDS: Ferrous Sulfate TAB* 325 MG PO SCH (09:36)
[2017-07-28] MEDS: Gabapentin CAP(*) 100 MG PO SCH ×2 (09:36→20:45)
[2017-07-28] MEDS: Metoprolol Succinate XL TAB* 25 MG PO SCH (09:37)
[2017-07-28] MEDS: metFORMIN* 500 MG TAB PO SCH (09:37)
[2017-07-28] MEDS: cefTRIAXone(*) 2 GM in NS 0.9% 100 ML* 100 ML IVPB SCH ×2 (11:14→23:52)
[2017-07-28] MEDS: Apixaban* 2.5 MG TAB PO SCH ×2 (11:14→20:45)
[2017-07-28] MEDS: Artificial Tears* 15 ML BTL BOTH EYES PRN (11:14)
[2017-07-28] MEDS: Digoxin TAB* 0.125 MG PO SCH (18:03)
[2017-07-28] MEDS: Atorvastatin* 10 MG TAB PO SCH (20:45)
[2017-07-29] MEDS: AMPICILLIN IVPB SCH ×6 (00:54→20:42)
[2017-07-29] MEDS: NS 0.9% IVPB SCH ×6 (00:54→20:42)
[2017-07-29] MEDS: Levothyroxine TAB* 100 MCG TAB PO SCH (05:26)
[2017-07-29] MEDS: Omeprazole CAP* 20 MG PO SCH (05:26)
[2017-07-29] MEDS: Insulin LISPRO* 1 UNITS UNIT SUBCUT SCH ×3 (07:43→16:40)
[2017-07-29] MEDS: Cyanocobalamin TAB* 500 MCG PO SCH (08:45)
[2017-07-29] MEDS: Metoprolol Succinate XL TAB* 25 MG PO SCH (08:45)
[2017-07-29] MEDS: Ascorbic Acid TAB* 500 MG PO SCH (08:45)
[2017-07-29] MEDS: Gabapentin CAP(*) 100 MG PO SCH ×2 (08:45→20:30)
[2017-07-29] MEDS: Folic Acid TAB* 1 MG PO SCH (08:45)
[2017-07-29] MEDS: Multivitamins/Minerals TAB PO SCH (08:45)
[2017-07-29] MEDS: Ferrous Sulfate TAB* 325 MG PO SCH (08:45)
[2017-07-29] MEDS: metFORMIN* 500 MG TAB PO SCH (08:46)
--- NOTE | 2017-07-29 10:05 | RAD ---
HISTORY: Altered mental status COMPARISONS: None TECHNIQUE: Multiple contiguous axial CT scans were obtained of the head without intravenous contrast. FINDINGS: HEMORRHAGE/INFARCT: There is no hemorrhage or acute infarct. MASSES/SHIFT: There is no mass or shift. EXTRA-AXIAL SPACES: There are no extra-axial fluid collections. SULCI AND VENTRICLES: There is diffuse and proportional enlargement of the sulci and ventricles. CEREBRUM: There is hypoattenuation of the periventricular and subcortical white matter. There is left posterior frontal encephalomalacia consistent with remote infarct. BRAINSTEM: There are no focal parenchymal abnormalities. CEREBELLUM: There are no focal parenchymal abnormalities. VESSELS: The vessels are grossly normal. PARANASAL SINUSES: The paranasal sinuses are clear. ORBITS: The orbits are unremarkable. BONES AND SOFT TISSUE: No bone or soft tissue abnormalities are noted. OTHER: None IMPRESSION: 1. NO ACUTE INTRACRANIAL PATHOLOGY. 2. DIFFUSE INVOLUTIONAL CHANGE WITH CHRONIC SMALL VESSEL ISCHEMIC CHANGES. 3. 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
--- NOTE | 2017-07-29 10:32 | PN ---
Subjective Date of Service: 07/29/17 Interval History: Pt is feeling well. He denies any pain. no SOB. He states he does not really remember what was going on earlier this AM (nursing notes he was quite confused) . Objective Active Medications: Acetaminophen (Tylenol Tab*) 650 mg PO Q6H PRN PRN Reason: FEVER/PAIN Apixaban (Eliquis) 2.5 mg PO BID [facility] Last Admin: 07/28/17 20:45 Dose: 2.5 mg Ascorbic Acid (Vitamin C Tab*) 500 mg PO DAILY [facility] Last Admin: 07/29/17 08:45 Dose: 500 mg Atorvastatin Calcium (Lipitor*) 10 mg PO BEDTIME [facility] Last Admin: 07/28/17 20:45 Dose: 10 mg Cyanocobalamin (Vitamin B12 Tab*) 1,000 mcg PO DAILY [facility] Last Admin: 07/29/17 08:45 Dose: 1,000 mcg Dextrose (D50w Syringe 50 Ml*) 12.5 gm IV PUSH .FOR FS < 60 - SS PRN PRN Reason: FS < 60 Digoxin (Lanoxin Tab*) 0.125 mg PO DAILY@1700 [facility] Last Admin: 07/28/17 18:03 Dose: 0.125 mg Ferrous Sulfate (Ferrous Sulfate Tab*) 325 mg PO DAILY [facility] Last Admin: 07/29/17 08:45 Dose: 325 mg Folic Acid (Folvite Tab*) 1 mg PO DAILY [facility] Last Admin: 07/29/17 08:45 Dose: 1 mg Gabapentin (Neurontin Cap(*)) 100 mg PO BID [facility] Last Admin: 07/29/17 08:45 Dose: 100 mg Heparin Sodium (Porcine) (Heparin Flush Picc/Ml/Cvc(*)) 1 - 3 ml FLUSH 0600, 1800 [facility] PRN Reason: Protocol Last Admin: 07/29/17 05:26 Dose: 1 ml Ampicillin Sodium 2 gm/ Sodium (Chloride) 100 mls @ 200 mls/hr IVPB Q4H [facility] Last Admin: 07/29/17 09:09 Dose: 200 mls/hr Ceftriaxone Sodium 2 gm/ (Sodium Chloride) 100 mls @ 200 mls/hr IVPB Q12H [facility] Last Admin: 07/28/17 23:52 Dose: 200 mls/hr Insulin Human Lispro (Humalog*) 0 units SUBCUT AC [facility] PRN Reason: Protocol Last Admin: 07/29/17 07:43 Dose: Not Given Levothyroxine Sodium (Synthroid Tab*) 100 mcg PO DAILY@0600 [facility] Last Admin: 07/29/17 05:26 Dose: 100 mcg Metformin HCl (Glucophage*) 500 mg PO DAILY [facility] Last Admin: 07/29/17 08:46 Dose: 500 mg Metoprolol Succinate (Toprol Xl Tab*) 25 mg PO DAILY [facility] Last Admin: 07/29/17 08:45 Dose: 25 mg Multivitamins/Minerals (Theragran/Minerals Tab*) 1 tab PO DAILY [facility] Last Admin: 07/29/17 08:45 Dose: 1 tab Omeprazole (Prilosec Cap*) 20 mg PO 0600 [facility] Last Admin: 07/29/17 05:26 Dose: 20 mg Polyvinyl Alcohol (Polyvinyl Alcohol 1.4% Opth*) 1 drop BOTH EYES TID PRN PRN Reason: DRY EYE Last Admin: 07/28/17 11:14 Dose: 1 drop Vital Signs - 8 hr 07/29/17 07/29/17 07/29/17 02:31 08:05 08:45 Temperature 97.6 F Pulse Rate 96 Respiratory 16 16 20 Rate Blood Pressure 121/52 (mmHg) O2 Sat by Pulse 95 Oximetry Oxygen Devices in Use Now: None Appearance: Elderly male sitting up in a chair, NAD Eyes: No Scleral Icterus Ears/Nose/Mouth/Throat: Mucous Membranes Moist Respiratory: Symmetrical Chest Expansion and Respiratory Effort, Clear to Auscultation - diminished breath sounds in all lung tyler Cardiovascular: NL Sounds; No Murmurs; No JVD, RRR, No Edema Abdominal: NL Sounds; No Tenderness; No Distention Extremities: No Clubbing, Cyanosis Skin: No Rash or Ulcers, No Nodules or Sclerosis Neurological: Alert and Oriented x 3, - - R UE strength 4+/5, L UE 5/5, minimal droop of R corner of the mouth Result Diagrams: 07/22/17 06:10 07/22/17 06:10 Microbiology and Other Data: Microbiology 07/28/17 07:57 Urine Culture - Final Urine No Growth (<1,000 CFU/mL) Assess/Plan/Problems-Billing Mr Johnston is an 87 year old man with ureteral stone/stent and Enterococcal bacteremia, found to have aortic valve vegetation. R ureteral stent and lithotrypsy performed by Dr. Ac on 07/14/17 now on SWING status. - Patient Problems (1) Altered mental status Current Visit: Yes Status: Acute Code(s): R41.82 - ALTERED MENTAL STATUS, UNSPECIFIED SNOMED Code(s): 355378948 Comment: At the time of my visit the patient is alert and oriented. He does not recall being confused this AM. 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 CT brain negative. Await results of labwork. Monitor through today. Neuro checks q4hr. (2) Bacteremia due to Enterococcus Current Visit: Yes Status: Acute Code(s): R78.81 - BACTEREMIA; B95.2 - ENTEROCOCCUS THE CAUSE OF DISEASES CLASSIFIED ELSEWHERE SNOMED Code(s): 047189866176 Comment: The plan is for 42 days of ampicillin and ceftriaxone per Dr. Abdalla for the enterococcus bacteremia and AV endocarditis. Will need repeat JUAN during his last week of Abx therapy. (3) Endocarditis Current Visit: Yes Status: Acute Code(s): I38 - ENDOCARDITIS, VALVE UNSPECIFIED SNOMED Code(s): 85757860 Comment: Aortic valve vegetation seen on JUAN 07/14/17. Management as above. (4) UTI (urinary tract infection) Current Visit: Yes Status: Acute Comment: The patient had a ureteral stone, now s/p lithotripsy and stent placement. Stent was removed 07/28/17. He has hematuria but this should resolve on its own. Continue to follow and if the hematuria persists will stop eliquis temporarily. (5) Diabetes Current Visit: Yes Status: Acute Code(s): E11.9 - TYPE 2 DIABETES MELLITUS WITHOUT COMPLICATIONS SNOMED Code(s): 58404262 Comment: Sugars are under good control. Stop finger stick checks and lispro coverage as he has not received much. (6) Atrial fibrillation Current Visit: Yes Status: Acute Code(s): I48.91 - UNSPECIFIED ATRIAL FIBRILLATION SNOMED Code(s): 48395728 Comment: Sounded regular on exam today. Continue digoxin and eliquis. (7) Hypothyroid Current Visit: Yes Status: Acute Code(s): E03.9 - HYPOTHYROIDISM, UNSPECIFIED SNOMED Code(s): 69051295 Comment: TSH in good range 07/13/17. Continue current synthroid dose. (8) DVT prophylaxis Current Visit: Yes Status: Acute Code(s): AYJ1735 - SNOMED Code(s): 159799386 Comment: Ernst (9) Full code status Current Visit: Yes Status: Acute Code(s): Z78.9 - OTHER SPECIFIED HEALTH STATUS SNOMED Code(s): 139825585 Status and Disposition: SWING
[2017-07-29] MEDS: Apixaban* 2.5 MG TAB PO SCH ×2 (12:03→20:42)
[2017-07-29] MEDS: cefTRIAXone(*) 2 GM in NS 0.9% 100 ML* 100 ML IVPB SCH ×2 (12:03→22:44)
[2017-07-29 12:25] LABS: ABS Basophils 0.2 10^3/ul (0-0.2); ABS Eosinophils 0.1 10^3/ul (0-0.6); ABS Lymphocytes 1.6 10^3/ul (1.0-4.8); ABS Monocytes 0.1 10^3/ul (0-0.8); ABS Neutrophils 4.3 10^3/ul (1.5-7.7); ABS Nucleated RBC 0 10^3/ul; Eosinophil % 0.9 % (0-6); Hematocrit 34 % (42-52); Hemoglobin 11.2 g/dl (14.0-18.0); Lymphocyte % 25.3 % (25-47); Mean Corpuscular HGB Conc 33 g/dl (31-36); Mean Corpuscular Hemoglobin 31 pg (27-31); Mean Corpuscular Volume 96 fL (80-94); Mean Platelet Volume 9 um3 (7.4-10.4); Nucleated Red Blood Cells % 0.2; Platelet Count 230 10^3/ul (150-450); Red Blood Count 3.59 10^6/ul (4.0-5.4); Red Cell Distribution Width 23 % (10.5-15); White Blood Count 6.2 10^3/ul (3.5-10.8)
[2017-07-29] MEDS: Digoxin TAB* 0.125 MG PO SCH (17:25)
[2017-07-29] MEDS: Atorvastatin* 10 MG TAB PO SCH (20:30)
[2017-07-30] MEDS: NS 0.9% IVPB SCH ×5 (01:27→17:48)
[2017-07-30] MEDS: AMPICILLIN IVPB SCH ×5 (01:27→17:48)
[2017-07-30] MEDS: Levothyroxine TAB* 100 MCG TAB PO SCH (05:15)
[2017-07-30] MEDS: Omeprazole CAP* 20 MG PO SCH (05:15)
[2017-07-30] MEDS: Insulin LISPRO* 1 UNITS UNIT SUBCUT SCH ×3 (08:41→17:22)
[2017-07-30] MEDS: Ascorbic Acid TAB* 500 MG PO SCH (10:34)
[2017-07-30] MEDS: Apixaban* 2.5 MG TAB PO SCH (10:34)
[2017-07-30] MEDS: Gabapentin CAP(*) 100 MG PO SCH (10:34)
[2017-07-30] MEDS: Metoprolol Succinate XL TAB* 25 MG PO SCH (10:35)
[2017-07-30] MEDS: Folic Acid TAB* 1 MG PO SCH (10:35)
[2017-07-30] MEDS: metFORMIN* 500 MG TAB PO SCH (10:35)
[2017-07-30] MEDS: Multivitamins/Minerals TAB PO SCH (10:35)
[2017-07-30] MEDS: Cyanocobalamin TAB* 500 MCG PO SCH (10:35)
[2017-07-30] MEDS: Ferrous Sulfate TAB* 325 MG PO SCH (10:35)
[2017-07-30] MEDS: Artificial Tears* 15 ML BTL BOTH EYES PRN (11:42)
[2017-07-30] MEDS: cefTRIAXone(*) 2 GM in NS 0.9% 100 ML* 100 ML IVPB SCH (13:00)
[2017-07-30] MEDS: Digoxin TAB* 0.125 MG PO SCH (17:49)
[2017-07-30] MEDS ORDERED: Aspirin TAB* 325 MG PO ONE (18:31)
[2017-07-30] MEDS ORDERED: Iodixanol* (CONTRAST) 320 MG/ML 100 ML SDV IV ONE (18:54)
--- NOTE | 2017-07-30 19:13 | RAD ---
INDICATION: Neurologic changes. COMPARISON: Comparison is made with a prior CT of the brain from July 29 2017. Correlation is also made with a study from July 11, 2017. TECHNIQUE: Contiguous axial sections of the brain were obtained from the skull base to the vertex without contrast. FINDINGS: The ventricles, cisterns and sulci are enlarged consistent with diffuse atrophy. There are multiple focal areas of decreased density in the subcortical and periventricular white matter suggestive of moderate chronic small vessel ischemic changes. There is a small focal area of encephalomalacia present in the posterior left parietal lobe which is unchanged most consistent with an old infarct. There is no evidence for hemorrhage. No significant focal osseous abnormality is seen. The visualized portion of the paranasal sinuses and mastoid air cells appear clear. IMPRESSION: 1. NO EVIDENCE FOR GROSS ACUTE INFARCT, MASS EFFECT OR HEMORRHAGE. 2. ATROPHY AND FINDINGS CONSISTENT WITH MODERATE CHRONIC SMALL VESSEL ISCHEMIC CHANGES. 3. SMALL AREA OF ENCEPHALOMALACIA IN THE LEFT PARIETAL LOBE MOST CONSISTENT WITH AN OLD INFARCT.
--- NOTE | 2017-07-30 19:27 | RAD ---
INDICATION: Neurologic changes possible CVA. COMPARISON: Comparison is made with a prior CT of the brain of the same date and a prior carotid duplex ultrasound from December 31, 2007. TECHNIQUE: A CT angiogram of the head and neck was performed following intravenous injection of 80 ml of Visipaque 320 nonionic contrast. Contiguous axial sections were obtained from the thoracic inlet through the skull vertex. Images were reconstructed in the coronal and sagittal planes and in a 3-D volume rendered format. The distal cervical internal carotid artery diameter is used as the denominator for stenosis measurement. FINDINGS: RIGHT CAROTID: The common and internal carotid arteries appear patent without evidence for hemodynamically significant stenosis. There is mild calcific plaque present within the carotid bulb and proximal internal carotid artery. LEFT CAROTID: The common and internal carotid arteries appear widely patent without evidence for hemodynamically significant stenosis. VERTEBRALS: The vertebral arteries appear patent without evidence for significant stenosis.. CTA BRAIN: The internal carotid, anterior and middle cerebral arteries appear patent without evidence for high-grade stenosis or occlusion. The vertebral and basilar arteries appear widely patent. There appears to be a moderate to high-grade stenosis in the proximal right posterior cerebral artery. No aneurysm or vascular malformation is seen. NECK: No significant enlarged lymph nodes are seen within the neck. The parotid and submandibular glands appear to be within normal limits. There are small bilateral pleural effusions and there is a small right upper lobe infiltrate seen at the lung apex. The paranasal sinuses and mastoid air cells appear clear IMPRESSION: 1. NO EVIDENCE FOR HEMODYNAMICALLY SIGNIFICANT CAROTID STENOSIS. 2. NO EVIDENCE FOR LARGE VESSEL INTRACRANIAL THROMBUS. 3. FINDINGS CONSISTENT WITH A MODERATE TO HIGH-GRADE STENOSIS IN THE PROXIMAL PORTION OF THE RIGHT POSTERIOR CEREBRAL ARTERY. 4. SMALL BILATERAL PLEURAL EFFUSIONS AND SMALL RIGHT UPPER LOBE INFILTRATE. CPT II Codes: 3100F
[2017-07-30 19:49] VITALS: BP 150/68
[2017-07-30] MEDS ORDERED: Iodixanol* (CONTRAST) 320 MG/ML 100 ML SDV IV SCH (20:00)
--- NOTE | 2017-07-30 20:27 | PN ---
Hospitalist Progress Note Date of Service: 07/30/17 Paged at [phone] by RN because patient had awoken from being asleep for approximately 1.5 hours and was disoriented which was not unusual for the patient. Patient was put on the phone with his son and was only able to repeat the same word over and over. Patient was examined at bedside and he was able to state where he was, but was unable to repeat back simple phrases and seemed to get caught saying the same gibberish phrase repeatedly. CN II-XII intact. Strength 5/5 in UE and LE distally, proximally and symmetrically. Patient given Aspirin 325mg and sent for CT scan or the brain and CTA of the head and neck. Neurologist consulted by phone and patient was deemed not to be a tPa candidate due to current anticoagulation. Patient was admitted from swing status and transferred to telemetry. Patient examined after CT and was able to speak in more sophisticated phrases but still repeated gibberish syllables. Neurologist Dr. Gabriel Cohen will see. CTA and CT findings do not necessitate transfer. Patient already on Statin and anticoagulated. Further workup and treatment per Dr. Cohen.
--- NOTE | 2017-08-01 11:53 | DS ---
DISCHARGE FROM SWING ADMISSION TO ACUTE HOSPITAL STAY: INITIAL ADMISSION TO [facility] [place]: 07/11/17 DISCHARGED TO [facility]07/19/17 DISCHARGED FROM [facility] TO ACUTE: 07/30/17 PRINCIPAL DIAGNOSES: 1. Acute cerebrovascular accident. 2. Aortic valve endocarditis. SECONDARY DIAGNOSES: 1. Type 2 diabetes. 2. Coronary artery disease. HOSPITAL COURSE: Mr. Concepcion is an 87-year-old male who was discharged from an acute hospital stay on 07/19/17 to swing bed status to receive IV antibiotics for a diagnosis of infective endocarditis. T he patient had been on swing bed status without any issues until 07/29/17. At that time, I was notif ied that the patient was confused. Labs were ordered as was the CT of the brain. By the time I saw the patient which was approximately 1 hour after I was notified, the patient was no longer confused. In fact, he was alert and oriented to place and time. The patient had no speech issues at that time . On the evening of 07/30/17, the patient had awaken from a nap around dinner time. He was noted to have significant expressive aphasia. The patient was immediately ordered a CT of the head as well a s a CT angiogram of the head and neck. A consult to Dr. Cohen was placed. Ultimately, the patient was found to have no evidence for hemodynamically significant carotid stenosis, no evidence for large vessel intracranial thrombus; however, findings were consistent with a moderate to high grade stenos is in the proximal portion of the right posterior cerebral artery. The patient's images were pushed up to [place] for Neurology there to review. Dr. Cohen saw the patient on the evening of 8. He also spoke with the neurologist in [place]. The patient was felt to not be a tPA candidate as he is on Eliquis. The patient was not felt to have a lesion on CT angiogram that was consistent w ith causing the symptoms that we are seeing. The decision was made to discharge the patient from [facility] bed status and readmit him to acute status. The patient will continue on Eliquis and will have ne urologic checks every 4 hours. An MRI of the brain will be obtained tomorrow. Dr. Cohen felt that there were no other interventions needed at this time other than continuing his current care. The patient will be maintained on the IV antibiotics for his infective endocarditis. His medications otherwise will remain the same. Again, an MRI will be obtained on 07/31/17. The patient at this po int is stable. Both myself and Dr. Cohen spoke with the patient's healthcare proxy, Uzair, his son. [id number]/[facility] #: [id number]
== END 2017-07-30 19:35 | disposition short-term general hospital (02) | DRG 289 ==
LOC: MED 17:26 → MEDTELE 07-30 19:35
PROVIDERS: ADMIT Internal Medicine; ATTEND Hospitalist
DX: I33.0 Acute and subacute infective endocarditis (principal); N20.1 Calculus of ureter; I48.91 Unspecified atrial fibrillation; D64.9 Anemia, unspecified; R78.81 Bacteremia; R31.9 Hematuria, unspecified; B95.2 Enterococcus as the cause of diseases classified elsewhere; E11.9 Type 2 diabetes mellitus without complications; N39.0 Urinary tract infection, site not specified; R41.82 Altered mental status, unspecified; E03.9 Hypothyroidism, unspecified; I25.10 Atherosclerotic heart disease of native coronary artery without angina pectoris; Z66 Do not resuscitate; Z87.440 Personal history of urinary (tract) infections; Z87.442 Personal history of urinary calculi; Z95.1 Presence of aortocoronary bypass graft; I69.331 Monoplegia of upper limb following cerebral infarction affecting right dominant side
CPT/HCPCS: 36415; 70450; 70496; 70498; 80053; 82140; 85025; 86140; 87086; 94660; 94760; 97112; 97530; A9270-GY; J0290; J0696; Q9967

== ENCOUNTER → 2017-07-28 07:47 | Day surgery (SDC) | payer MEDICARE, BC ==
--- NOTE | 2017-07-28 23:40 | OP ---
OPERATIVE REPORT: DATE OF OPERATION: 07/28/17 DATE OF : 32 SURGEON: Todd Chavez MD ANESTHESIA: Local. PRE-OP DIAGNOSIS: Status post placement of right ureteral stent. POST-OP DIAGNOSES: 1. Partial urinary retention. 2. Status post placement of right ureteral stent. OPERATIVE PROCEDURES: 1. Cystoscopy. 2. Removal of right ureteral stent. INDICATIONS: Mr. Concepcion is an 87-year-old white male who presented 2 weeks ago with urosepsis and was noted to have a 1.5 cm distal right ureteral calculus. After antibiotics treatment, he underwent right ureteroscopy and laser lithotripsy with removal of all the stone fragments and placement of a right ureteral stent. He has been on IV antibiotics and has responded well to treatment. Patient is in diapers. He is now brought in for stent removal. DESCRIPTION OF PROCEDURE: The patient was prepped and draped for a cystoscopy. A 16-Malaysian red rubber catheter was placed inside the bladder and a total of about 200 cc of clear urine was drained. Urine specimen was sent for culture and sensitivity. Xylocaine jelly was then instilled in the urethra. Flexible cystoscopy was performed. There was only mild enlargement and obstruction of the prostate. The distal limb of the stent was seen coming from the right orifice. The stent was removed intact. A 16-[place]ian [place] catheter was then passed inside the bladder. The patient tolerated the procedure well and left the operating room in good condition. The plan is to observe for any possible infection or colic following the procedure. [id number]/CPS #: [id number] MTDD
== END | disposition home or self-care (01) ==
LOC: OR 07:47
PROVIDERS: ATTEND Urology
DX: N13.6 Pyonephrosis (principal); N40.1 Benign prostatic hyperplasia with lower urinary tract symptoms; N13.8 Other obstructive and reflux uropathy; I10 Essential (primary) hypertension; R41.82 Altered mental status, unspecified; Z95.1 Presence of aortocoronary bypass graft; A41.9 Sepsis, unspecified organism; R65.21 Severe sepsis with septic shock; D64.89 Other specified anemias

== ENCOUNTER 2017-07-30 19:35 | Inpatient (IN) | payer MEDICARE, BC ==
[2017-07-30] MEDS ORDERED: Dextrose 50% Syringe 50 ML* 25 GM/50 ML SYRINGE IV PUSH PRN (21:32)
[2017-07-30] MEDS ORDERED: Acetaminophen TAB* 325 MG PO PRN (21:32)
[2017-07-30] MEDS ORDERED: Apixaban* 5 MG TAB PO SCH (21:40)
[2017-07-30] MEDS: Ampicillin IV* 2 GM in NS 0.9% 100 ML* 100 ML IVPB SCH (22:06)
[2017-07-30] MEDS: cefTRIAXone(*) 2 GM in NS 0.9% 100 ML* 100 ML IVPB SCH (22:50)
[2017-07-31] MEDS: Ampicillin IV* 2 GM in NS 0.9% 100 ML* 100 ML IVPB SCH ×6 (01:31→21:31)
[2017-07-31] MEDS: Levothyroxine TAB* 100 MCG TAB PO SCH (05:20)
[2017-07-31] MEDS: Omeprazole CAP* 20 MG PO SCH (05:20)
[2017-07-31 05:59] LABS: EGFR Non-African American 70.8 (>60)
[2017-07-31 06:39] LABS: ABS Basophils 0.2 10^3/ul (0-0.2); ABS Eosinophils 0.2 10^3/ul (0-0.6); ABS Lymphocytes 1.7 10^3/ul (1.0-4.8); ABS Monocytes 0.2 10^3/ul (0-0.8); ABS Neutrophils 3.5 10^3/ul (1.5-7.7); ABS Nucleated RBC 0 10^3/ul; Eosinophil % 2.6 % (0-6); Hematocrit 31 % (42-52); Hemoglobin 10.4 g/dl (14.0-18.0); Lymphocyte % 29.4 % (25-47); Mean Corpuscular HGB Conc 33 g/dl (31-36); Mean Corpuscular Hemoglobin 32 pg (27-31); Mean Corpuscular Volume 95 fL (80-94); Mean Platelet Volume 10 um3 (7.4-10.4); Nucleated Red Blood Cells % 0.2; Platelet Count 197 10^3/ul (150-450); Red Blood Count 3.26 10^6/ul (4.0-5.4); Red Cell Distribution Width 24 % (10.5-15); White Blood Count 5.8 10^3/ul (3.5-10.8)
[2017-07-31] MEDS: Insulin LISPRO* 1 UNITS UNIT SUBCUT SCH ×4 (07:33→21:02)
--- NOTE | 2017-07-31 07:37 | CONS ---
DATE OF CONSULT: PATIENT OF: Dr. Holder. HISTORY OF PRESENT ILLNESS: This is an 87-year-old that I am asked to evaluate for possible stroke. He has a past history of type 2 diabetes, atrial fibrillation, past stroke, BPH, anemia, hypothyroid ism, mitral valve prolapse, and has been admitted here with atrial fibrillation and with endocarditis . Of note, yesterday morning, he had an episode of difficulty speaking and was evaluated by Dr. Julio richardson. The difficulty speaking cleared quickly and he was back to his baseline. He has had residual rig ht arm stiffness and weakness and he has some difficulty speaking when he first wakes up, but otherwi se his thinking is good. He was well until early this afternoon and then when he woke up from a nap this early evening, he was found to have significant speech difficulties. The nurse practitioner was contacted and obtained CT , CTA and consulted. The patient was on Eliquis and was not a TPA candidate and the last known well was more than 3 to 4 hours prior to notification. Of note, he has endocarditis and bacteremia second bianca to enterococcus. MEDICATIONS: Include : 1. Eliquis 2.5 b.i.d. 2. Lipitor 10 mg a day. 3. B12 1000 mg daily. 4. Digoxin 0.125 daily. 5. Gabapentin 100 b.i.d. 6. Ampicillin 2 g q.4 hours. 7. Ceftriaxone 2 g q.12 hours. 8. Insulin per protocol. He has had no pacemaker. He is right-handed according to the son. SOCIAL HISTORY: He does not smoke or do drugs. REVIEW OF SYSTEMS: He was unable to give review of systems. PHYSICAL EXAM: On exam, temperature 98.3, pulse 92, respirations 20, blood pressure 150/68. He was alert, but did not know his age. He did not know the date. He did not know where he was. He could name occasional objects, but not with consistency. Memory was 0/3. He spoke in broken speech with some gibberish but with obvious word finding difficulties and halting speech as well. Cranial nerves II through XII are intact other than subtle right facial weakness. I am not sure if this is old or new. He had trace weakness in the right arm with some spasticity. Right leg appeared full, although he did not follow commands consistently, I need to redirect him. He had pain on movement of his lef t arm and did not want to keep it up. He apparently has had old left rotator cuff injury according jenna long his son that I spoke to. Reflexes were trace to 1 on his right, downgoing toe on the left. He cou ld reach for objects with his right hand relatively smoothly, but had difficulty moving his left arm at the shoulder. He could not do [id number] due to lack of understanding. Sensation was inconsis tent and he was confused. Chest: Clear. Cardiovascular: Irregular rate and rhythm. Abdomen is sof t with positive bowel sounds. DIAGNOSTIC STUDIES AND LABORATORY DATA: Reviewed his CT scan, which showed some diffuse white matter disease as well as left parietal lobe encephalomalacia, unchanged from his CT scan on admission on which I also reviewed. His CTA showed a high-grade stenosis of his right posterior cerebral artery. White count 6.2, hematocrit 34, platelets 230, glucose 129. This morning, he had normal BNP , liver function tests. C-reactive protein was 44. ASSESSMENT: Mr. Concepcion is having apparent stroke characterized by a dense expressive and comprehensi ve aphasia. This is significantly different than what his sons tell me on the phone and I had Dr. Chemo galvez look at the patient again and she says this is markedly different from yesterday, but no clear difference in his motor exam, which is complicated by his past stroke and also his rotator cuff injur y on the left. I discussed with both of his sons that he will be on Eliquis and outside the window f or TPA and is not a TPA candidate. I had called [facility] to see if that high-grade stenosis was at all appreciable before I confirmed for sure which handedness he was. They did not think this was a l esion that could be addressed by thrombectomy in any case, it was unlikely to be causing his current symptoms. I discussed this with both sons on the phone. We have transferred him over to the stroke floor and discussed with the sons and Dr. Holder that he is at a high-risk situation since it seems h e is possibly throwing emboli and he is anticoagulated, so he is at risk for both further stroke from the emboli and also possibly bleeding into the stroke. I discussed that at this point there is no l ikely interventions other than continuing his current care at this point, but we will be getting an M RI scan tomorrow. Thank you for sharing his case. [id number]/[facility] #: [id number]
[2017-07-31] MEDS: Cyanocobalamin TAB* 500 MCG PO SCH (11:09)
[2017-07-31] MEDS: Ascorbic Acid TAB* 500 MG PO SCH (11:09)
[2017-07-31] MEDS: Ferrous Sulfate TAB* 325 MG PO SCH (11:10)
[2017-07-31] MEDS: Apixaban* 2.5 MG TAB PO SCH ×2 (11:10→21:25)
[2017-07-31] MEDS: Metoprolol Succinate XL TAB* 25 MG PO SCH (11:10)
[2017-07-31] MEDS: Gabapentin CAP(*) 100 MG PO SCH ×2 (11:10→21:25)
[2017-07-31] MEDS: Folic Acid TAB* 1 MG PO SCH (11:10)
[2017-07-31] MEDS: Multivitamins/Minerals TAB PO SCH (11:10)
[2017-07-31] MEDS: cefTRIAXone(*) 2 GM in NS 0.9% 100 ML* 100 ML IVPB SCH ×2 (11:52→22:45)
[2017-07-31] MEDS: Artificial Tears* 15 ML BTL BOTH EYES PRN ×2 (13:15→21:23)
--- NOTE | 2017-07-31 15:38 | PN ---
Subjective Date of Service: 07/31/17 Interval History: Patient seen and examined at bedside. Patient is intermittently able to respond to verbal command and responds occasionally, but his speech mainly consists of nonsensical syllables. Patient has weakness in left hand and leg not appreciated on exam yesterday. Patient was able to eat breakfast and lunch but is unable to initiate the process himself. No difficulty swallowing. Able to walk with PT with 1 minimum assist but is unable to follow direction consistently. Unable to participate in ROS. Family History: Unchanged from Admission Social History: Unchanged from Admission Past Medical History: Unchanged from Admission Objective Active Medications: Acetaminophen (Tylenol Tab*) 650 mg PO Q6H PRN PRN Reason: FEVER/PAIN Apixaban (Eliquis) 2.5 mg PO BID [facility] Last Admin: 07/31/17 11:10 Dose: 2.5 mg Ascorbic Acid (Vitamin C Tab*) 500 mg PO DAILY [facility] Last Admin: 07/31/17 11:09 Dose: 500 mg Atorvastatin Calcium (Lipitor*) 10 mg PO 2100 [facility] Cyanocobalamin (Vitamin B12 Tab*) 1,000 mcg PO DAILY [facility] Last Admin: 07/31/17 11:09 Dose: 1,000 mcg Dextrose (D50w Syringe 50 Ml*) 12.5 gm IV PUSH .FOR FS < 60 - SS PRN PRN Reason: FS < 60 Ferrous Sulfate (Ferrous Sulfate Tab*) 325 mg PO DAILY [facility] Last Admin: 07/31/17 11:10 Dose: 325 mg Folic Acid (Folvite Tab*) 1 mg PO DAILY [facility] Last Admin: 07/31/17 11:10 Dose: 1 mg Gabapentin (Neurontin Cap(*)) 100 mg PO BID [facility] Last Admin: 07/31/17 11:10 Dose: 100 mg Heparin Sodium (Porcine) (Heparin Flush Picc/Ml/Cvc(*)) 1 ml FLUSH 0600,1800 [facility] PRN Reason: Protocol Last Admin: 07/31/17 05:20 Dose: 1 ml Ampicillin Sodium 2 gm/ Sodium (Chloride) 100 mls @ 200 mls/hr IVPB Q4H [facility] Last Admin: 07/31/17 14:59 Dose: 200 mls/hr Ceftriaxone Sodium 2 gm/ (Sodium Chloride) 100 mls @ 200 mls/hr IVPB Q12H [facility] Last Admin: 02/19/18 11:52 Dose: 200 mls/hr Insulin Human Lispro (Humalog*) 0 units SUBCUT ACHS [facility] PRN Reason: Protocol Last Admin: 07/31/17 13:15 Dose: 1 unit Levothyroxine Sodium (Synthroid Tab*) 100 mcg PO DAILY@0600 [facility] Last Admin: 07/31/17 05:20 Dose: 100 mcg Metoprolol Succinate (Toprol Xl Tab*) 25 mg PO DAILY [facility] Last Admin: 07/31/17 11:10 Dose: 25 mg Multivitamins/Minerals (Theragran/Minerals Tab*) 1 tab PO DAILY [facility] Last Admin: 07/31/17 11:10 Dose: 1 tab Omeprazole (Prilosec Cap*) 20 mg PO 0600 [facility] Last Admin: 07/31/17 05:20 Dose: 20 mg Polyvinyl Alcohol (Polyvinyl Alcohol 1.4% Opth*) 1 drop BOTH EYES TID PRN PRN Reason: DRY EYE Last Admin: 07/31/17 13:15 Dose: 1 drop Vital Signs - 8 hr 07/31/17 07/31/17 07/31/17 07:40 08:01 11:10 Temperature 97.6 F Pulse Rate 81 Respiratory 18 20 16 Rate Blood Pressure 157/68 (mmHg) O2 Sat by Pulse 99 Oximetry 07/31/17 07/31/17 12:16 14:03 Temperature 97.4 F Pulse Rate 87 Respiratory 18 18 Rate Blood Pressure 141/71 (mmHg) O2 Sat by Pulse 100 Oximetry Oxygen Devices in Use Now: None Appearance: Patient is an 87yo male who appears stated age and is sitting in the chair in [facility]. Eyes: No Scleral Icterus, PERRLA Ears/Nose/Mouth/Throat: NL Teeth, Lips, Gums, Clear Oropharnyx, Mucous Membranes Moist Neck: NL Appearance and Movements; NL JVP, Trachea Midline Respiratory: Symmetrical Chest Expansion and Respiratory Effort, Clear to Auscultation Cardiovascular: RRR, No Edema, - - Murmur ar LLSB 3/6 holosystolic without radiation. Abdominal: NL Sounds; No Tenderness; No Distention, No Hepatosplenomegaly Lymphatic: No Cervical Adenopathy Extremities: No Edema, No Clubbing, Cyanosis Skin: No Nodules or Sclerosis, - - Purpura on arms. Neurological: - - Expressive and receptive aphasia. Strength 4/5 in LLE and LUE. Able to stand. Reflexes 1+ in B/L biceps, patellar and achilles tendons. Babinski upgoing in LLE. Normal gait. 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 - Patient Problems (1) CVA (cerebral vascular accident) Current Visit: Yes Status: Acute Code(s): I63.9 - CEREBRAL INFARCTION, UNSPECIFIED SNOMED Code(s): 556127412 Comment: Appreciate neurology and ID input. Patient had a CVA with residual aphasia in the evening of 07/30. Patient unable to follow commands consistently, express himself, form words, or spontaneously feed himself. Patient still able to ambulate. Patient has a history of CVA in 2016 with possible left sided residual weakness. Patient also has rotator cuff pathology which limits movement on that side. MRI pending. Discussed with family that if MRI indicates that this stroke was related to endocarditis that the patient would need to be transferred for evaluation by cardiothoracic surgery for aortic valve replacement. Family has not decided if they would like to pursue this, but are inclined to "not put him through that." Continue anticoagulation PT/OT. Supportive care. (2) Bacteremia due to Enterococcus Current Visit: No Status: Acute Code(s): R78.81 - BACTEREMIA; B95.2 - ENTEROCOCCUS THE CAUSE OF DISEASES CLASSIFIED ELSEWHERE SNOMED Code(s): 907816046605 Comment: The plan is for 42 days of ampicillin and ceftriaxone per Dr. Abdalla for the enterococcus bacteremia and AV endocarditis. Will need repeat JUAN during his last week of Abx therapy. (3) Atrial fibrillation Current Visit: No Status: Acute Code(s): I48.91 - UNSPECIFIED ATRIAL FIBRILLATION SNOMED Code(s): 31506764 Comment: NSR on telemetry. Rate 90-100. On metoprolol. Hold digoxin. (4) Diabetes Current Visit: No Status: Acute Code(s): E11.9 - TYPE 2 DIABETES MELLITUS WITHOUT COMPLICATIONS SNOMED Code(s): 26635585 Comment: Good control. FSBG and Lispro insulin. (5) Endocarditis Current Visit: No Status: Acute Code(s): I38 - ENDOCARDITIS, VALVE UNSPECIFIED SNOMED Code(s): 35926786 Comment: Aortic valve vegetation seen on JUAN 07/14/17. Management as above. Possible cause of stroke. (6) Hypothyroid Current Visit: No Status: Acute Code(s): E03.9 - HYPOTHYROIDISM, UNSPECIFIED SNOMED Code(s): 35507091 Comment: TSH in good range 07/13/17. Continue current synthroid dose. (7) UTI (urinary tract infection) Current Visit: No Status: Acute Comment: The patient had a ureteral stone, now s/p lithotripsy and stent placement. Stent was removed 07/28/17. No hematuria , rosario removed, voiding without residual. (8) DVT prophylaxis Current Visit: No Status: Acute Code(s): VMO4185 - SNOMED Code(s): 004714689 Comment: Ernst (9) DNR (do not resuscitate) Current Visit: Yes Status: Acute Comment: DNR per family. Patient made clear to family he would not want heroic measures per son. Status and Disposition: Admitted inpatient.
--- NOTE | 2017-07-31 20:25 | RAD ---
INDICATION: Possible CVA COMPARISON: CTA head and neck same date; CT brain same date TECHNIQUE: sagittal T1 FLAIR, axial diffusion, axial T1 FLAIR, axial T2, axial T2 FLAIR, and SWI images were acquired. FINDINGS: Craniocervical junction: The craniocervical junction appears normal. Ventricles/sulci: There is cortical atrophy with compensatory dilatation of the CSF spaces. Brain parenchyma: There is a small cortical/subcortical focus of acute ischemia and left posterior parietal region. There is no associated mass effect. There is no hemorrhage. There are several additional tiny punctate foci of ischemia in the deep white matter near the vertex. There are additional periventricular and subcortical white matter hyperintensities consistent with chronic microvascular ischemic change. Intracranial hemorrhage: There is no intracranial hemorrhage. Extra-axial spaces: There are no extra-axial fluid collections or masses. Orbits: There are no MR abnormalities of the orbital structures. Paranasal sinuses/mastoid: The paranasal sinuses are clear. The mastoid air cells are well aerated.. Vascular: No abnormalities are seen. Other: None IMPRESSION: 1. Diffusion-weighted images a small focus of cortical/subcortical ischemia in the left posterior parietal region. There are several additional tiny punctate foci of deep white matter ischemia. 2. Cortical atrophy with sequela of chronic supratentorial and infratentorial microvascular ischemic changes. 3. No intracranial hemorrhage. No intracranial mass effect.
[2017-07-31] MEDS: Atorvastatin* 10 MG TAB PO SCH (21:25)
--- NOTE | 2017-08-01 01:58 | PN ---
NEUROLOGIC FOLLOWUP: DATE OF FOLLOWUP: 07/31/17 PATIENT OF: Dr. López. HISTORY: This is an 87-year-old who had a probable stroke yesterday characterized by aphasia and confusion. I have spoken to his sons last night and then his sister and the niece who is here at bedside and no other significant change in his word finding, his speech qualities, just general overall hesitancy and also confusion. They note that his right-sided weakness to their eyes is essentially unchanged from prior, but the change has been his speech. He is unable to give any history. MEDICATIONS: Medications have been unchanged, include his: 1. Eliquis. 2. Lipitor. 3. Vitamin B. 4. Gabapentin. 5. Insulin. 6. Synthroid. 7. Metoprolol. 8. Prilosec. 9. Ampicillin. 10. Ceftriaxone. PHYSICAL EXAMINATION: Temperature 97.6, pulse 81, respirations 16, blood pressure 147/68. He was alert, but confused, with difficulty naming objects, with hesitant speech and following commands poorly with a minor right facial weakness and some increased tone in his right side, but moved his right side with power. His left was limited by his shoulder pain. Chest: Clear. Cardiovascular: Irregular rate and rhythm. Abdomen: Soft. His MRI scan has not been done yet. I spoke to his sons twice last night. We will check the MRI scan. It may well show a stroke, which could be either from his atrial fibrillation or from his endocarditis. Depending on the pattern of MRI scan, we may have a discussion whether there is an indication for open- heart surgery, but with the stroke he has, his overall condition per my discussion with family last night, it may not be something that the family would like to do even if it is an option, but we would need to have more specifics once the MRI scan is done. I have spoken to Dr. López about this as well. Thank you for sharing his case. [id number]/[facility] #: [id number] ROSELIA
[2017-08-01] MEDS: Ampicillin IV* 2 GM in NS 0.9% 100 ML* 100 ML IVPB SCH ×6 (02:21→21:35)
[2017-08-01] MEDS: Omeprazole CAP* 20 MG PO SCH (05:58)
[2017-08-01] MEDS: Levothyroxine TAB* 100 MCG TAB PO SCH (05:58)
[2017-08-01 06:00] LABS: EGFR Non-African American 67.7 (>60)
[2017-08-01 06:13] LABS: ABS Basophils 0 10^3/ul (0-0.2); ABS Eosinophils 0.1 10^3/ul (0-0.6); ABS Lymphocytes 1.7 10^3/ul (1.0-4.8); ABS Monocytes 0.3 10^3/ul (0-0.8); ABS Neutrophils 3.5 10^3/ul (1.5-7.7); ABS Nucleated RBC 0 10^3/ul; Hematocrit 31 % (42-52); Hemoglobin 10.3 g/dl (14.0-18.0); Lymphocyte % 30.4 % (25-47); Mean Corpuscular HGB Conc 33 g/dl (31-36); Mean Corpuscular Hemoglobin 32 pg (27-31); Mean Corpuscular Volume 97 fL (80-94); Mean Platelet Volume 10 um3 (7.4-10.4); Nucleated Red Blood Cells % 0.5; Platelet Count 183 10^3/ul (150-450); Red Blood Count 3.23 10^6/ul (4.0-5.4); Red Cell Distribution Width 24 % (10.5-15); White Blood Count 5.5 10^3/ul (3.5-10.8)
[2017-08-01] MEDS: Insulin LISPRO* 1 UNITS UNIT SUBCUT SCH ×4 (07:33→21:35)
[2017-08-01] MEDS: Cyanocobalamin TAB* 500 MCG PO SCH (09:45)
[2017-08-01] MEDS: Ferrous Sulfate TAB* 325 MG PO SCH (09:45)
[2017-08-01] MEDS: Metoprolol Succinate XL TAB* 25 MG PO SCH (09:46)
[2017-08-01] MEDS: Gabapentin CAP(*) 100 MG PO SCH ×2 (09:46→21:34)
[2017-08-01] MEDS: Ascorbic Acid TAB* 500 MG PO SCH (09:46)
[2017-08-01] MEDS: Multivitamins/Minerals TAB PO SCH (09:46)
[2017-08-01] MEDS: Folic Acid TAB* 1 MG PO SCH (09:46)
[2017-08-01] MEDS: Apixaban* 2.5 MG TAB PO SCH ×2 (09:46→21:33)
[2017-08-01] MEDS: cefTRIAXone(*) 2 GM in NS 0.9% 100 ML* 100 ML IVPB SCH ×2 (11:13→22:50)
--- NOTE | 2017-08-01 16:11 | PN ---
Progress Note - Progress Note Date of Service: 08/01/17 SOAP: Subjective: CC: aphasia HPI: 87 year old man with right ureteral stone and hydronephrosis with ureteral stent, s/p lithotripsy and stent replacement, complicated by infective endocarditis. Developed aphasia due to CVA. Objective: Vital Signs Temp 36.9 C 08/01/17 11:49 Pulse 86 08/01/17 11:49 Resp 16 08/01/17 11:49 BP 112/46 08/01/17 11:49 Pulse Ox 100 08/01/17 11:49 Intake & Output 07/31/17 08/01/17 08/01/17 18:59 06:59 18:59 Intake Total 858 305 680 Output Total 275 325 225 Balance 583 -20 455 Weight 140 lb Intake: IV Fluids 300 ABX - AMPICILLIN 200 Ceftriaxone 100 IVPB 200 305 10 ABX - AMPICILLIN 100 200 Ceftriaxone 100 105 10 Oral 658 0 370 Output: Urine 275 325 225 Other: Estimated Void Small Medium # Bowel Movements 1 Estimated Stool Amount Medium # Voids 1 1 Gen:awake, no distress HEENT:PERRL, MMM Heart:RRR no murmur Lungs:CTA BL Abd:+BS NTND soft Skin: no rash MSK: no spine tenderness Neuro: expressive aphasia Assessment: 1. 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 CVA likely emboli from infective endocarditis vs atrial fibrillation 3. 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 ureterolithiasis with hydronephrosis s/p ureteral stent replacement and lithotripsy 5. atrial fibrillation Plan: 1. continue ceftriaxone 2 gm IV Q12hrs and incr amp 2 gm IV Q4hrs as his GFR is improving, day ; weekly cbc, cmp, crp 2. relative indication for valve replacement, his family members are considering transfer for CT surgery evaluation. At his age he has high operative risk. Discussed with Cristino QUIÑONEZ 35 minutes floor time >50% face to face discussing antibiotic treatments
--- NOTE | 2017-08-01 16:54 | PN ---
Subjective Date of Service: 08/01/17 Interval History: Improved greatly today. Able to answer most questions appropriately and form full sentences. Only occasional word repetition, occasionally misunderstands questioning and frequently refers to himself as "Uzair" which is his son's name. Able to stand and ambulate. Denies F/C, N/V, abdominal pain, diarrhea, CP, SOB, Dysuria, dizziness, or other pain. Discussed treatment by heart valve replacement to reduce the risk of recurrent stroke and patient states that he couldn't decide without consulting with his sons first. Family History: Unchanged from Admission Social History: Unchanged from Admission Past Medical History: Unchanged from Admission Objective Active Medications: Acetaminophen (Tylenol Tab*) 650 mg PO Q6H PRN PRN Reason: FEVER/PAIN Apixaban (Eliquis) 2.5 mg PO BID [facility] Last Admin: 08/01/17 09:46 Dose: 2.5 mg Ascorbic Acid (Vitamin C Tab*) 500 mg PO DAILY [facility] Last Admin: 08/01/17 09:46 Dose: 500 mg Atorvastatin Calcium (Lipitor*) 10 mg PO 2100 [facility] Last Admin: 07/31/17 21:25 Dose: 10 mg Cyanocobalamin (Vitamin B12 Tab*) 1,000 mcg PO DAILY [facility] Last Admin: 08/01/17 09:45 Dose: 1,000 mcg Dextrose (D50w Syringe 50 Ml*) 12.5 gm IV PUSH .FOR FS < 60 - SS PRN PRN Reason: FS < 60 Ferrous Sulfate (Ferrous Sulfate Tab*) 325 mg PO DAILY [facility] Last Admin: 08/01/17 09:45 Dose: 325 mg Folic Acid (Folvite Tab*) 1 mg PO DAILY [facility] Last Admin: 08/01/17 09:46 Dose: 1 mg Gabapentin (Neurontin Cap(*)) 100 mg PO BID [facility] Last Admin: 08/01/17 09:46 Dose: 100 mg Heparin Sodium (Porcine) (Heparin Flush Picc/Ml/Cvc(*)) 1 ml FLUSH 0600,1800 [facility] PRN Reason: Protocol Last Admin: 08/01/17 16:14 Dose: 1 ml Ampicillin Sodium 2 gm/ Sodium (Chloride) 100 mls @ 200 mls/hr IVPB Q4H [facility] Last Admin: 08/01/17 13:39 Dose: 200 mls/hr Ceftriaxone Sodium 2 gm/ (Sodium Chloride) 100 mls @ 200 mls/hr IVPB Q12H [facility] Last Admin: 08/01/17 11:13 Dose: 200 mls/hr Insulin Human Lispro (Humalog*) 0 units SUBCUT ACHS [facility] PRN Reason: Protocol Last Admin: 08/01/17 16:23 Dose: Not Given Levothyroxine Sodium (Synthroid Tab*) 100 mcg PO DAILY@0600 [facility] Last Admin: 08/01/17 05:58 Dose: 100 mcg Metoprolol Succinate (Toprol Xl Tab*) 25 mg PO DAILY [facility] Last Admin: 08/01/17 09:46 Dose: 25 mg Multivitamins/Minerals (Theragran/Minerals Tab*) 1 tab PO DAILY [facility] Last Admin: 08/01/17 09:46 Dose: 1 tab Omeprazole (Prilosec Cap*) 20 mg PO 0600 [facility] Last Admin: 08/01/17 05:58 Dose: 20 mg Polyvinyl Alcohol (Polyvinyl Alcohol 1.4% Opth*) 1 drop BOTH EYES TID PRN PRN Reason: DRY EYE Last Admin: 07/31/17 21:23 Dose: 1 drop Vital Signs - 8 hr 08/01/17 08/01/17 08/01/17 09:46 11:45 11:49 Temperature 98.4 F Pulse Rate 86 Respiratory 16 18 16 Rate Blood Pressure 112/46 (mmHg) O2 Sat by Pulse 100 Oximetry 08/01/17 15:33 Temperature 98.2 F Pulse Rate 82 Respiratory 18 Rate Blood Pressure 103/51 (mmHg) O2 Sat by Pulse 95 Oximetry Oxygen Devices in Use Now: None Appearance: Patient is an 87yo male who appears stated age and is sitting in the bed in [facility]. Eyes: No Scleral Icterus, PERRLA Ears/Nose/Mouth/Throat: NL Teeth, Lips, Gums, Clear Oropharnyx, Mucous Membranes Moist Neck: NL Appearance and Movements; NL JVP, Trachea Midline Respiratory: Symmetrical Chest Expansion and Respiratory Effort, Clear to Auscultation Cardiovascular: RRR, No Edema, - - Grade 2/6 holosystolic murmur heard best at LLSB. Abdominal: NL Sounds; No Tenderness; No Distention, No Hepatosplenomegaly Lymphatic: No Cervical Adenopathy Extremities: No Edema, No Clubbing, Cyanosis Skin: No Nodules or Sclerosis, - - Purpura on B/L arms with healed scabs. Neurological: - - Decreased strength on left side. Consistent with previous exam. Improved aphasia, no other abnormalities. 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 Greatly improved and family is considering transfer for aortic valve replacement to decrease the risk of recurrent stroke. - Patient Problems (1) CVA (cerebral vascular accident) Current Visit: Yes Status: Acute Code(s): I63.9 - CEREBRAL INFARCTION, UNSPECIFIED SNOMED Code(s): 491327203 Comment: Appreciate neurology and ID input. Patient had a CVA with residual aphasia in the evening of 07/30. Patient unable to follow commands consistently, express himself, form words, or spontaneously feed himself. Patient still able to ambulate. Patient has a history of CVA in 2016 with possible left sided residual weakness. Patient also has rotator cuff pathology which limits movement on that side. MRI pending. Discussed with family that if MRI indicates that this stroke was related to endocarditis that the patient would need to be transferred for evaluation by cardiothoracic surgery for aortic valve replacement. Family has not decided if they would like to pursue this, but are inclined to "not put him through that." Continue anticoagulation PT/OT. Supportive care. (2) Bacteremia due to Enterococcus Current Visit: No Status: Acute Code(s): R78.81 - BACTEREMIA; B95.2 - ENTEROCOCCUS THE CAUSE OF DISEASES CLASSIFIED ELSEWHERE SNOMED Code(s): 883786410958 Comment: The plan is for 42 days of ampicillin and ceftriaxone per Dr. Abdalla for the enterococcus bacteremia and AV endocarditis. Will need repeat JUAN during his last week of Abx therapy. Likely cause of embolic stroke. No brain abscess identified. (3) Atrial fibrillation Current Visit: No Status: Acute Code(s): I48.91 - UNSPECIFIED ATRIAL FIBRILLATION SNOMED Code(s): 45403961 Comment: NSR on telemetry. Rate 90-100. On metoprolol. Hold digoxin. (4) Diabetes Current Visit: No Status: Acute Code(s): E11.9 - TYPE 2 DIABETES MELLITUS WITHOUT COMPLICATIONS SNOMED Code(s): 16394055 Comment: Good control. FSBG and Lispro insulin. (5) Endocarditis Current Visit: No Status: Acute Code(s): I38 - ENDOCARDITIS, VALVE UNSPECIFIED SNOMED Code(s): 38257041 Comment: Appreciate ID input. Aortic valve vegetation seen on JUAN 07/14/17. Management as above. Possible cause of stroke. Relative indication for aortic valve replacement. Family is considering pros and cons. (6) Hypothyroid Current Visit: No Status: Acute Code(s): E03.9 - HYPOTHYROIDISM, UNSPECIFIED SNOMED Code(s): 92656588 Comment: TSH in good range 07/13/17. Continue current synthroid dose. (7) UTI (urinary tract infection) Current Visit: No Status: Acute Comment: The patient had a ureteral stone, now s/p lithotripsy and stent placement. Stent was removed 07/28/17. No hematuria , rosario removed, voiding without residual. (8) DVT prophylaxis Current Visit: No Status: Acute Code(s): ZYS3644 - SNOMED Code(s): 395419729 Comment: Ernst (9) DNR (do not resuscitate) Current Visit: Yes Status: Acute Comment: DNR per family. Patient made clear to family he would not want heroic measures per son. Status and Disposition: Admitted inpatient.
[2017-08-01] MEDS: Atorvastatin* 10 MG TAB PO SCH (21:34)
[2017-08-02] MEDS: Ampicillin IV* 2 GM in NS 0.9% 100 ML* 100 ML IVPB SCH ×6 (02:41→22:37)
[2017-08-02] MEDS: Levothyroxine TAB* 100 MCG TAB PO SCH (06:08)
[2017-08-02] MEDS: Omeprazole CAP* 20 MG PO SCH (06:08)
[2017-08-02 06:48] LABS: EGFR Non-African American 68.5 (>60)
[2017-08-02 06:57] LABS: Hematocrit 27 % (42-52); Hemoglobin 8.7 g/dl (14.0-18.0); Mean Corpuscular HGB Conc 33 g/dl (31-36); Mean Corpuscular Hemoglobin 32 pg (27-31); Mean Corpuscular Volume 97 fL (80-94); Mean Platelet Volume 11 um3 (7.4-10.4); Platelet Count 181 10^3/ul (150-450); Red Blood Count 2.74 10^6/ul (4.0-5.4); Red Cell Distribution Width 24 % (10.5-15); White Blood Count 5.2 10^3/ul (3.5-10.8)
[2017-08-02 07:22] LABS: Monocytes % 1 % (0-13)
[2017-08-02] MEDS: Insulin LISPRO* 1 UNITS UNIT SUBCUT SCH ×4 (08:10→20:19)
[2017-08-02] MEDS ORDERED: NS 0.9% 100 ML* 100 ML ONE (09:45)
[2017-08-02] MEDS: Apixaban* 2.5 MG TAB PO SCH ×2 (09:51→20:49)
[2017-08-02] MEDS: Cyanocobalamin TAB* 500 MCG PO SCH (09:52)
[2017-08-02] MEDS: Ferrous Sulfate TAB* 325 MG PO SCH (09:52)
[2017-08-02] MEDS: Ascorbic Acid TAB* 500 MG PO SCH (09:52)
[2017-08-02] MEDS: Folic Acid TAB* 1 MG PO SCH (09:52)
[2017-08-02] MEDS: Metoprolol Succinate XL TAB* 25 MG PO SCH (09:52)
[2017-08-02] MEDS: Multivitamins/Minerals TAB PO SCH (09:52)
[2017-08-02] MEDS: Gabapentin CAP(*) 100 MG PO SCH ×2 (09:53→20:49)
[2017-08-02] MEDS: cefTRIAXone(*) 2 GM in NS 0.9% 100 ML* 100 ML IVPB SCH ×2 (11:20→23:29)
--- NOTE | 2017-08-02 11:27 | PN ---
NEUROLOGICAL FOLLOWUP NOTE: DATE OF VISIT: 08/01/17 PATIENT OF: OLAMIDE Harper. HISTORY: Wai is feeling better and is speaking better and he has no specific complaints at this point. His family still thinks his speech is not back to baseline, but is improved. MEDICATIONS: He is on his: 1. Ampicillin. 2. Eliquis. 3. Lipitor. 4. Ceftriaxone. 5. B12. 6. Gabapentin. REVIEW OF SYSTEMS: He has no specific complaints on review of systems. PHYSICAL EXAMINATION: Temperature 97.9, pulse 103, respirations 18, blood pressure 108/63. He is alert. He knows his name. He still has some word finding difficulties, but he is speaking more fluently in sentences and has a better comprehension, but is still mildly confused. Cranial nerves II through XII were intact other than mild right facial palsy. His strength is trace weak on the right with good strength in the left, but limited by left shoulder pain. Chest: Clear. Cardiovascular: Regular rate and rhythm. Abdomen is soft. Bowel sounds present. IMAGING: I reviewed his MRI scan with Cristino Daja and it showed an acute small left posterior parietal stroke with some additional tiny deep white matter acute ischemia with some chronic diffuse ischemic changes as well. IMPRESSION AND PLAN: I discussed with Mr. Farnsworth that he has had an acute stroke, probably cardioembolic. This is not clearly bland though could be septic emboli, but the findings on MRI scan were nonspecific. Followup MRI scan with and with contrast may help. Main issue is whether he would benefit from cardiac surgery. Crsitino has spoken to both sons and spoken to the patient and discussed that if he was transferred it would be because he would be a potential candidate, but he would not necessarily have surgery. He would need to be evaluated further at the receiving institution and so if the family wanted to proceed that should be done now. He is at risk for bleeding into the stroke, but also he is at high risk for having further stroke since this occurred in this setting, and I am continuing the Eliquis for now, although there are risks either way. Thank you for sharing his case. [id number]/[facility] #: [id number] ROSELIA
--- NOTE | 2017-08-02 17:18 | PN ---
Subjective Date of Service: 08/02/17 Interval History: Patient improved again overnight. Functioning well with PT. Able to remember who he was, where he was, and articulate his thoughts with only minor errors in word finding. Patient also states that he was able to see shadows in his left eye which previously had no vision. Patient denies CP, SOB, N/V, dizziness, F/C , abdominal pain, dark stools, dysuria, or other pain. Patient and family had a long discussion about the risks and benefits of the surgery and they are all in agreement to maintain the current course. Family History: Unchanged from Admission Social History: Unchanged from Admission Past Medical History: Unchanged from Admission Objective Active Medications: Acetaminophen (Tylenol Tab*) 650 mg PO Q6H PRN PRN Reason: FEVER/PAIN Apixaban (Eliquis) 2.5 mg PO BID [facility] Last Admin: 08/02/17 09:51 Dose: 2.5 mg Ascorbic Acid (Vitamin C Tab*) 500 mg PO DAILY [facility] Last Admin: 08/02/17 09:52 Dose: 500 mg Atorvastatin Calcium (Lipitor*) 10 mg PO 2100 [facility] Last Admin: 08/01/17 21:34 Dose: 10 mg Cyanocobalamin (Vitamin B12 Tab*) 1,000 mcg PO DAILY [facility] Last Admin: 08/02/17 09:52 Dose: 1,000 mcg Dextrose (D50w Syringe 50 Ml*) 12.5 gm IV PUSH .FOR FS < 60 - SS PRN PRN Reason: FS < 60 Digoxin (Lanoxin Tab*) 0.125 mg PO 1700 [facility] Ferrous Sulfate (Ferrous Sulfate Tab*) 325 mg PO DAILY [facility] Last Admin: 08/02/17 09:52 Dose: 325 mg Folic Acid (Folvite Tab*) 1 mg PO DAILY [facility] Last Admin: 08/02/17 09:52 Dose: 1 mg Gabapentin (Neurontin Cap(*)) 100 mg PO BID [facility] Last Admin: 08/02/17 09:53 Dose: 100 mg Heparin Sodium (Porcine) (Heparin Flush Picc/Ml/Cvc(*)) 1 ml FLUSH 0600,1800 [facility] PRN Reason: Protocol Last Admin: 08/02/17 12:03 Dose: 1 ml Ampicillin Sodium 2 gm/ Sodium (Chloride) 100 mls @ 200 mls/hr IVPB Q4H [facility] Last Admin: 08/02/17 14:48 Dose: 200 mls/hr Ceftriaxone Sodium 2 gm/ (Sodium Chloride) 100 mls @ 200 mls/hr IVPB Q12H [facility] Last Admin: 08/02/17 11:20 Dose: 200 mls/hr Insulin Human Lispro (Humalog*) 0 units SUBCUT ACHS [facility] PRN Reason: Protocol Last Admin: 08/02/17 12:43 Dose: 1 unit Levothyroxine Sodium (Synthroid Tab*) 100 mcg PO DAILY@0600 [facility] Last Admin: 08/02/17 06:08 Dose: 100 mcg Metoprolol Succinate (Toprol Xl Tab*) 25 mg PO DAILY [facility] Last Admin: 08/02/17 09:52 Dose: 25 mg Multivitamins/Minerals (Theragran/Minerals Tab*) 1 tab PO DAILY [facility] Last Admin: 08/02/17 09:52 Dose: 1 tab Omeprazole (Prilosec Cap*) 20 mg PO 0600 [facility] Last Admin: 08/02/17 06:08 Dose: 20 mg Polyvinyl Alcohol (Polyvinyl Alcohol 1.4% Opth*) 1 drop BOTH EYES TID PRN PRN Reason: DRY EYE Last Admin: 07/31/17 21:23 Dose: 1 drop Vital Signs - 8 hr 08/02/17 08/02/17 08/02/17 09:20 09:53 11:16 Temperature 97.7 F Pulse Rate 90 85 Respiratory 18 20 Rate Blood Pressure 132/74 124/58 (mmHg) O2 Sat by Pulse 100 Oximetry 08/02/17 08/02/17 08/02/17 11:45 13:30 16:18 Temperature 97.6 F Pulse Rate 78 77 Respiratory 16 16 Rate Blood Pressure 118/68 121/53 (mmHg) O2 Sat by Pulse 100 Oximetry Oxygen Devices in Use Now: None Appearance: Patient is an 87yo male who appears stated age and is sitting in the bed in [facility]. Eyes: No Scleral Icterus, PERRLA Ears/Nose/Mouth/Throat: NL Teeth, Lips, Gums, Clear Oropharnyx, Mucous Membranes Moist Neck: NL Appearance and Movements; NL JVP, Trachea Midline Respiratory: Symmetrical Chest Expansion and Respiratory Effort, Clear to Auscultation Cardiovascular: NL Sounds; No Murmurs; No JVD, RRR, No Edema, - - Pulses 2+. Scar consistent with previous open heart surgery. Abdominal: NL Sounds; No Tenderness; No Distention, No Hepatosplenomegaly Lymphatic: No Cervical Adenopathy Extremities: No Edema, No Clubbing, Cyanosis Skin: No Rash or Ulcers, No Nodules or Sclerosis Neurological: Alert and Oriented x 3, NL Sensation, NL Gait, NL Muscle Strength and Tone, - - Cerebellar testing intact. Occasional receptive and progressive aphasia. 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 Greatly improved and family is considering transfer for aortic valve replacement to decrease the risk of recurrent stroke. - Patient Problems (1) CVA (cerebral vascular accident) Current Visit: Yes Status: Acute Code(s): I63.9 - CEREBRAL INFARCTION, UNSPECIFIED SNOMED Code(s): 508962092 Comment: Appreciate neurology and ID input. Patient had a CVA with residual aphasia in the evening of 07/30. Patient unable to follow commands consistently, express himself, form words, or spontaneously feed himself on 07/31. Dramatically improved. Occasional word-finding difficulty. Otherwise at baseline per son. Patient has a history of CVA in 2016 with possible left sided residual weakness. Patient also has rotator cuff pathology which limits movement on that side. Family and patient decided not to seek evaluation for surgery. PT/OT. Supportive care. LDL at 90, Lipitor increased to 40mg per neuro. (2) Bacteremia due to Enterococcus Current Visit: No Status: Acute Code(s): R78.81 - BACTEREMIA; B95.2 - ENTEROCOCCUS THE CAUSE OF DISEASES CLASSIFIED ELSEWHERE SNOMED Code(s): 037822175451 Comment: The plan is for 42 days of ampicillin and ceftriaxone per Dr. Abdalla for the enterococcus bacteremia and AV endocarditis. Will need repeat JUAN during his last week of Abx therapy. Likely cause of embolic stroke. No brain abscess identified. (3) Atrial fibrillation Current Visit: No Status: Acute Code(s): I48.91 - UNSPECIFIED ATRIAL FIBRILLATION SNOMED Code(s): 01660456 Comment: NSR on telemetry. Rate 90-100. On metoprolol and digoxin. Continue Eliquis. (4) Diabetes Current Visit: No Status: Acute Code(s): E11.9 - TYPE 2 DIABETES MELLITUS WITHOUT COMPLICATIONS SNOMED Code(s): 81180319 Comment: Good control. FSBG and Lispro insulin. (5) Endocarditis Current Visit: No Status: Acute Code(s): I38 - ENDOCARDITIS, VALVE UNSPECIFIED SNOMED Code(s): 07097658 Comment: Appreciate ID input. Aortic valve vegetation seen on JUAN 07/14/17. Management as above. Probable cause of stroke. Family and patient decided not to pursue valve replacement. (6) Hypothyroid Current Visit: No Status: Acute Code(s): E03.9 - HYPOTHYROIDISM, UNSPECIFIED SNOMED Code(s): 85265991 Comment: TSH in good range 07/13/17. Continue current synthroid dose. (7) UTI (urinary tract infection) Current Visit: No Status: Acute Comment: The patient had a ureteral stone, now s/p lithotripsy and stent placement. Stent was removed 07/28/17. No hematuria , rosario removed, voiding without residual. (8) Anemia Current Visit: Yes Status: Acute Code(s): D64.9 - ANEMIA, UNSPECIFIED SNOMED Code(s): 717920448 Comment: Significantly decreased hemoglobin today, down to 8.5. No obvious signs of bleeding. Previously positive stool occult blood. No hematuria. Will recheck occult blood and consider GI consultation if positive. (9) DVT prophylaxis Current Visit: No Status: Acute Code(s): WSY6317 - SNOMED Code(s): 234391942 Comment: Eliquis (10) DNR (do not resuscitate) Current Visit: Yes Status: Acute Comment: DNR per family. Patient made clear to family he would not want heroic measures per son. Status and Disposition: Admitted inpatient.
[2017-08-02] MEDS: Digoxin TAB* 0.125 MG PO SCH (17:43)
[2017-08-02] MEDS ORDERED: Atorvastatin* 40 MG TAB PO SCH (21:00)
[2017-08-03] MEDS: Ampicillin IV* 2 GM in NS 0.9% 100 ML* 100 ML IVPB SCH ×4 (03:21→14:33)
[2017-08-03] MEDS: Levothyroxine TAB* 100 MCG TAB PO SCH (05:25)
[2017-08-03] MEDS: Omeprazole CAP* 20 MG PO SCH (05:26)
[2017-08-03 05:50] LABS: Immature Retic Fraction 0.73; RBC Retic Count 3.26 10^6/ul (4.6-6.2); Red Blood Count 3.26 10^6/ul (4.0-5.4)
[2017-08-03 05:53] LABS: Hematocrit 31 % (42-52); Hematocrit for Retic CNT 31 % (42-52); Hemoglobin 10.3 g/dl (14.0-18.0); Mean Corpuscular HGB Conc 33 g/dl (31-36); Mean Corpuscular Hemoglobin 32 pg (27-31); Mean Corpuscular Volume 95 fL (80-94); Mean Platelet Volume 10 um3 (7.4-10.4); Platelet Count 160 10^3/ul (150-450); Red Cell Distribution Width 24 % (10.5-15); White Blood Count 6.1 10^3/ul (3.5-10.8)
[2017-08-03 06:04] LABS: EGFR Non-African American 71.7 (>60)
[2017-08-03 06:25] LABS: ABS Basophils 0 10^3/ul (0-0.2); ABS Eosinophils 0.1 10^3/ul (0-0.6); ABS Lymphocytes 1.3 10^3/ul (1.0-4.8); ABS Monocytes 0.2 10^3/ul (0-0.8); ABS Neutrophils 4.4 10^3/ul (1.5-7.7); ABS Nucleated RBC 0 10^3/ul; Eosinophil % 1.9 % (0-6); Lymphocyte % 21.9 % (25-47); Nucleated Red Blood Cells % 0.3
[2017-08-03] MEDS: Insulin LISPRO* 1 UNITS UNIT SUBCUT SCH ×2 (09:23→11:49)
[2017-08-03] MEDS: Apixaban* 2.5 MG TAB PO SCH (09:31)
[2017-08-03] MEDS: Ferrous Sulfate TAB* 325 MG PO SCH (09:31)
[2017-08-03] MEDS: Folic Acid TAB* 1 MG PO SCH (09:31)
[2017-08-03] MEDS: Multivitamins/Minerals TAB PO SCH (09:31)
[2017-08-03] MEDS: Cyanocobalamin TAB* 500 MCG PO SCH (09:31)
[2017-08-03] MEDS: Gabapentin CAP(*) 100 MG PO SCH (09:31)
[2017-08-03] MEDS: Metoprolol Succinate XL TAB* 25 MG PO SCH (09:32)
[2017-08-03] MEDS: Ascorbic Acid TAB* 500 MG PO SCH (09:32)
[2017-08-03] MEDS: Artificial Tears* 15 ML BTL BOTH EYES PRN (09:32)
[2017-08-03] MEDS: cefTRIAXone(*) 2 GM in NS 0.9% 100 ML* 100 ML IVPB SCH (11:25)
[2017-08-03 15:30] VITALS: BP 118/78
[2017-08-03] MEDS: Digoxin TAB* 0.125 MG PO SCH (15:52)
--- NOTE | 2017-08-04 14:10 | DS ---
CC: Dr. Kian Jimenez * DISCHARGE SUMMARY/ADMISSION HISTORY AND PHYSICAL: The patient is being transferred from inpatient to swing status. DATE OF ADMISSION: Admission to inpatient status: 07/30/17 DATE OF DISCHARGE: Discharged back to swing status: 08/03/17. PRIMARY CARE PROVIDER: Dr. Kian Jimenez. MY ATTENDING WHILE IN THE HOSPITAL: Dr. Jaya Pride.* (DICTATED BY OLAMIDE BARNETT) PRIMARY DISCHARGE DIAGNOSES: 1. Bacterial endocarditis. 2. Acute cerebrovascular accident. 3. Aphasia. SECONDARY DISCHARGE DIAGNOSES: 1. Nephrolithiasis. 2. Pyelonephritis. 3. Coronary artery disease. 4. Diabetes. 5. Hypothyroidism. 6. History of mitral valve replacement. 7. Benign prostatic hyperplasia. 8. History of prostate hemorrhage. 9. Anemia. 10. Hypothyroidism. 11. History of mitral valve prolapse. STUDIES DONE DURING THIS ADMISSION: Brain MRI 07/31/17 read as diffusion weighted images as a small focus of cortical/subcortical ischemia in the left posterior parietal region. There are several additional tiny punctate foci within deep white matter ischemia, cortical atrophy with sequelae of chronic supratentorial and infratentorial microvascular ischemic changes. No intracranial hemorrhage or intracranial mass effect. Electrocardiogram from 08/02/17 shows normal sinus rhythm, PACs, no ST segment changes, right bundle branch block, no other abnormalities, left axis deviation. MEDICATIONS AT DISCHARGE: 1. Folic acid 1 mg p.o. daily. 2. Digoxin 0.125 mg p.o. daily. 3. Vitamin B12, 1000 mcg daily. 4. Artificial tears 1 drop both eyes t.i.d. as needed. 5. Gabapentin 100 mg p.o. b.i.d. 6. Metformin 500 mg p.o. daily. 7. Melatonin 1 mg p.o. at bedtime. 8. Levothyroxine 100 mcg p.o. daily. 9. Cetirizine 10 mg p.o. daily. 10. Heparin flush, 1 mL flush at 0600 and 1800. 11. Insulin Lispro sliding scale a.c. 12. Ampicillin 2 g q. 4 hours. 13. Ceftriaxone 2 g IV q. 12 hours. 14. Tylenol 650 mg p.o. q. 6 hours as needed. 15. Eliquis 2.5 mg p.o. b.i.d. 16. Ascorbic acid 500 mg p.o. daily. 17. Lipitor 40 mg p.o. nightly. 18. Ferrous sulfate 325 mg p.o. daily. 19. Metoprolol succinate 25 mg p.o. daily. 20. Multivitamin 1 tab p.o. daily. 21. Omeprazole 20 mg p.o. at 0600 New medications at discharge: Lipitor 40 mg p.o. nightly. Medications discontinued at discharge: Lipitor 10 mg p.o. nightly. HOSPITAL COURSE: This is a brief summary of the patient's hospital stay. For more details, please see the discharge summary from Dr. Marisabel Holder on , as well as previous discharge summary/history and physical from Dr. Samantha Sofia and the admission history and physical from Dr. Wicho Parra, all relating to patient's time in the hospital. In brief, the patient is an 87-year -old male with past medical history significant for the above, who presented on 07/11/17 with sepsis related to nephrolithiasis, pyelonephritis attributable to enterococcus. 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 The patient also had cystoscopy with laser lithotripsy and stent insertion. The patient was started on 42-day course of ampicillin and ceftriaxone, which continued from the patient 's admission to when he was made swing status on 07/19/17. The patient had an uneventful course from then until 07/30/17 except for patient having his [place] catheter removed, his ureteral stent removed and continuing with his antibiotics. On 07/30/17, the patient was found to have aphasia after waking up from a nap with difficulty with word finding and occasional garbled speech. The patient had a brain CT, which showed only his previous CVA. Head CTA, which showed stenosis of the right posterior artery and brain MRI, which was read as above. Neurology was consulted and this was believed to be an embolic stroke either from the patient's atrial fibrillation or his endocarditis. Given that this happened in the setting of endocarditis, the patient was informed that the definitive treatment to prevent further strokes would for aortic valve replacement, which will require transfer. The patient was instructed on the risks and benefits of this as was his family. The patient was initially unable to make his needs known and the family delayed decision making until he was able to provide input and at that time the patient and family decided not to pursue this intervention. The patient had lipid panel drawn which showed a LDL cholesterol of 90, the recommended goal is below 70. So, the patient's atorvastatin was increased. The patient initially on the was examined and was entirely unable to make needs known or significantly follow directions. However, the patient improved to the point now where he only had slight difficulty with word finding occasionally which according to the son is essentially back to his baseline. The patient, otherwise, had no other abnormalities while he was admitted inpatient except for one reading of hemoglobin of 8.7 down from 10 but the next day the patient's hemoglobin went back up to 10.3, which likely represented a false reading previously. The patient was shown to be iron deficient on 07/12/17 and will be continued on his iron. The patient was in agreement to be transferred back to [facility] status with the duration of his antibiotics which should continue for 3 more weeks. PHYSICAL EXAMINATION ON THE DAY OF DISCHARGE: General: The patient is an 87- year- old male, who appears stated age and sitting comfortably on the chair, in no acute distress. Vital Signs: At the time of discharge, temperature 97.9, pulse rate 84, respiratory rate 16, oxygen saturation 100% on room air, blood pressure 118/70. HEENT: Head normocephalic, atraumatic. Sclerae anicteric. No conjunctival injection. Nasal mucosa moist. Oral mucosa moist. The patient is missing several of his lower teeth. No oropharyngeal erythema, discharge, or exudate. Neck: Supple. Nontender, no lymphadenopathy. No carotid bruits auscultated. Cardiac: Regular rate and rhythm. Grade 2/6 murmur heard best at the apex with no radiation. Pulses 2+ in bilateral dorsalis pedis, posterior tibialis, and radial areas. No lower extremity edema noted. Respiratory: Clear to auscultation bilaterally. No wheezes, rales, or rhonchi. Good air exchange bilaterally. Abdomen: Soft, nontender, nondistended. Bowel sounds present. Normoactive in all 4 quadrants. No hepatosplenomegaly or abdominal bruits auscultated. Skin: Clean, dry, and intact. Purpura over the bilateral forearms, large central scar consistent with previous thoracic surgery. 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 No other abnormality. Cranial nerves II through XII are otherwise intact. Strength 5/5 in the bilateral upper and lower extremities distally and proximally. Sensation intact to light touch bilateral upper and lower extremities distally and proximally. Reflex is 2+ in the biceps, patella and Achilles areas. Babinski's is downgoing bilaterally. Cerebellar testing performed without difficulty. Normal gait. Occasional difficulty with word finding. The patient is able to quickly identify and correct. Psychiatric: The patient is very pleasant and cooperative. LABORATORY DATA ON DAY OF DISCHARGE: White blood cell count 6.1, hemoglobin 10.3, MCV 95, MCH 32, RDW 24, platelet count 160. Sodium 136, potassium 3.7, chloride 105, carbon dioxide 25, anion gap 6, BUN 27, creatinine 0.99, glucose 129, calcium 8.5, magnesium 1.9. DISCHARGE PLAN: The patient will be discharged back to swing status for the remainder of his antibiotic treatment for a total of 42 days of the ampicillin and ceftriaxone combination treatment. The patient will engage in activities as tolerated and have a heart healthy diet without caffeine. The patient will have neuro checks every 8 hours to assess for recurrent stroke; however, the chance of this will decrease as patient's treatment progresses. TIME SPENT: Approximately 60 minutes were spent on this discharge admission, 30 of which spent [id number] with the patient obtaining history and physical and discussing treatment plan. OLAMIDE BARNETT [id number]/[facility] #: [id number] RSOELIA
== END 2017-08-03 15:29 | disposition swing bed (61) | DRG 64 ==
LOC: MEDTELE 19:35
PROVIDERS: ADMIT Hospitalist; ATTEND Internal Medicine
PROC: 0TP98DZ Removal of Intraluminal Device from Ureter, Via Natural or Artificial Opening Endoscopic (ICD-10-PCS; principal; 2017-07-28)
DX: I63.431 Cerebral infarction due to embolism of right posterior cerebral artery (principal); I33.0 Acute and subacute infective endocarditis; A41.9 Sepsis, unspecified organism; R65.21 Severe sepsis with septic shock; I69.354 Hemiplegia and hemiparesis following cerebral infarction affecting left non-dominant side; N39.0 Urinary tract infection, site not specified; N13.6 Pyonephrosis; N13.8 Other obstructive and reflux uropathy; I48.91 Unspecified atrial fibrillation; E11.9 Type 2 diabetes mellitus without complications; D64.9 Anemia, unspecified; R47.01 Aphasia; B96.89 Other specified bacterial agents as the cause of diseases classified elsewhere; E03.9 Hypothyroidism, unspecified; I11.9 Hypertensive heart disease without heart failure; I25.10 Atherosclerotic heart disease of native coronary artery without angina pectoris; Z66 Do not resuscitate; Z95.1 Presence of aortocoronary bypass graft; Z79.2 Long term (current) use of antibiotics; Z79.01 Long term (current) use of anticoagulants; Z79.4 Long term (current) use of insulin; Z79.899 Other long term (current) drug therapy; N40.1 Benign prostatic hyperplasia with lower urinary tract symptoms; R41.82 Altered mental status, unspecified; D64.89 Other specified anemias
CPT/HCPCS: 36415; 70551; 80048; 80061; 82272; 83735; 85025; 85045; 93005; A9270-GY; J0290; J0696

== ENCOUNTER 2017-08-03 15:29 | Inpatient (IN) | payer MEDICARE, BC ==
--- NOTE | 2017-08-03 07:58 | PN ---
NEUROLOGICAL FOLLOWUP NOTE: DATE OF FOLLOWUP: 08/02/17 PATIENT OF: OLAMIDE Harper HISTORY: This is a neurological followup on this 87-year-old man, who has had a recent stroke affecting speech. He is improving and has no active neurological complaints but his speech may still be somewhat affected. MEDICATIONS: He remains on his: 1. Eliquis. 2. Ampicillin. 3. Lipitor. 4. Ceftriaxone. 5. Vitamin B. 6. Digoxin. 7. Gabapentin. 8. Insulin. 9. Synthroid 10. Metoprolol. PHYSICAL EXAMINATION: Temperature 97.7, pulse 85, respirations 16, blood pressure 124/58. He is alert and oriented with mild word finding difficulties. His speech is in full sentences now but there is some mild hesitancy at times. Cranial nerves II through XII are intact. He still has some mild spasticity in his right arm and a slight drift there but no other focalities on exam. Chest: Clear. Cardiovascular: Regular rate and rhythm. Abdomen: Soft. LABORATORY DATA: He has white count of 5.2, hematocrit of 27, platelets 181, and BMP was normal other than BUN of 29. Wai is improving from his partial left MCA stroke although is mildly still symptomatic, remains on his anticoagulation. The family has opted not to pursue cardiac surgery at this point. I have spoken to Dr. Farnsworth, who is checking fasting lipids and will adjust his statin to maintain an LDL below 70. His recent LDL back beginning in June was 77. I will be glad to see back as needed. Thank you for sharing his case. [id number]/[facility] #: [id number] [facility] MEDICAL CENTERGrace
[2017-08-03] MEDS ORDERED: Digoxin TAB* 0.125 MG ONE (15:48)
[2017-08-03] MEDS ORDERED: Acetaminophen TAB* 325 MG PO PRN (16:08)
[2017-08-03] MEDS ORDERED: Insulin GLARGINE(*) 1 UNITS UNIT SUBCUT SCH (17:00)
[2017-08-03] MEDS: Insulin LISPRO* 1 UNITS UNIT SUBCUT SCH (17:01)
[2017-08-03] MEDS ORDERED: AMPICILLIN 2 GM SCH (18:00)
[2017-08-03] MEDS: Atorvastatin* 40 MG TAB PO SCH (20:56)
[2017-08-03] MEDS: Apixaban* 2.5 MG TAB PO SCH (20:56)
[2017-08-03] MEDS: CMCS: Melatonin (NF) 3 MG TAB PO SCH (20:56)
[2017-08-03] MEDS: Gabapentin CAP(*) 100 MG PO SCH (20:56)
[2017-08-03] MEDS: Artificial Tears* 15 ML BTL BOTH EYES PRN (20:56)
[2017-08-03] MEDS: Ampicillin IV* 2 GM in NS 0.9% 100 ML* 100 ML IVPB SCH (20:56)
[2017-08-03] MEDS ORDERED: CEFTRIAXONE 2 GM IV SCH (21:00)
[2017-08-04] MEDS: Ampicillin IV* 2 GM in NS 0.9% 100 ML* 100 ML IVPB SCH ×5 (00:49→18:39)
[2017-08-04] MEDS: Omeprazole CAP* 20 MG PO SCH (05:01)
[2017-08-04] MEDS: Levothyroxine TAB* 100 MCG TAB PO SCH ×2 (05:01→09:03)
[2017-08-04 05:22] LABS: Hematocrit 30 % (42-52); Hemoglobin 9.8 g/dl (14.0-18.0); Mean Corpuscular HGB Conc 33 g/dl (31-36); Mean Corpuscular Hemoglobin 32 pg (27-31); Mean Corpuscular Volume 97 fL (80-94); Mean Platelet Volume 10 um3 (7.4-10.4); Platelet Count 138 10^3/ul (150-450); Red Blood Count 3.07 10^6/ul (4.0-5.4); Red Cell Distribution Width 25 % (10.5-15); White Blood Count 5.7 10^3/ul (3.5-10.8)
[2017-08-04 05:47] LABS: EGFR Non-African American 61.5 (>60)
[2017-08-04 06:00] LABS: ABS Basophils 0.1 10^3/ul (0-0.2); ABS Eosinophils 0.2 10^3/ul (0-0.6); ABS Lymphocytes 1.4 10^3/ul (1.0-4.8); ABS Monocytes 0.2 10^3/ul (0-0.8); ABS Neutrophils 3.8 10^3/ul (1.5-7.7); ABS Nucleated RBC 0 10^3/ul; Lymphocyte % 25.1 % (25-47); Nucleated Red Blood Cells % 0.1
[2017-08-04] MEDS: Insulin LISPRO* 1 UNITS UNIT SUBCUT SCH ×3 (08:20→17:36)
[2017-08-04] MEDS: Artificial Tears* 15 ML BTL BOTH EYES PRN ×2 (09:01→21:01)
[2017-08-04] MEDS: Multivitamins/Minerals TAB PO SCH (09:03)
[2017-08-04] MEDS: Apixaban* 2.5 MG TAB PO SCH ×2 (09:03→21:02)
[2017-08-04] MEDS: Ferrous Sulfate TAB* 325 MG PO SCH (09:03)
[2017-08-04] MEDS: Metoprolol Succinate XL TAB* 25 MG PO SCH (09:03)
[2017-08-04] MEDS: metFORMIN* 500 MG TAB PO SCH (09:03)
[2017-08-04] MEDS: Cetirizine* 10 MG TAB PO SCH (09:03)
[2017-08-04] MEDS: Ascorbic Acid TAB* 500 MG PO SCH (09:03)
[2017-08-04] MEDS: Gabapentin CAP(*) 100 MG PO SCH ×2 (09:04→21:02)
[2017-08-04] MEDS: Folic Acid TAB* 1 MG PO SCH (09:04)
[2017-08-04] MEDS: Cyanocobalamin TAB* 500 MCG PO SCH (09:04)
[2017-08-04] MEDS: Digoxin TAB* 0.125 MG PO SCH (09:04)
[2017-08-04] MEDS: CMCS: Melatonin (NF) 3 MG TAB PO SCH (21:02)
[2017-08-04] MEDS: Atorvastatin* 40 MG TAB PO SCH (21:02)
[2017-08-05] MEDS: Ampicillin IV* 2 GM in NS 0.9% 100 ML* 100 ML IVPB SCH ×4 (00:04→17:46)
[2017-08-05] MEDS: Omeprazole CAP* 20 MG PO SCH (05:32)
[2017-08-05] MEDS: Insulin LISPRO* 1 UNITS UNIT SUBCUT SCH ×3 (08:45→16:58)
[2017-08-05] MEDS: Ferrous Sulfate TAB* 325 MG PO SCH (08:58)
[2017-08-05] MEDS: Levothyroxine TAB* 100 MCG TAB PO SCH (08:58)
[2017-08-05] MEDS: Multivitamins/Minerals TAB PO SCH (08:59)
[2017-08-05] MEDS: Apixaban* 2.5 MG TAB PO SCH ×2 (08:59→22:12)
[2017-08-05] MEDS: Metoprolol Succinate XL TAB* 25 MG PO SCH (09:00)
[2017-08-05] MEDS: Gabapentin CAP(*) 100 MG PO SCH ×2 (09:00→22:12)
[2017-08-05] MEDS: Ascorbic Acid TAB* 500 MG PO SCH (09:01)
[2017-08-05] MEDS: metFORMIN* 500 MG TAB PO SCH (09:02)
[2017-08-05] MEDS: Cetirizine* 10 MG TAB PO SCH (09:02)
[2017-08-05] MEDS: Cyanocobalamin TAB* 500 MCG PO SCH (09:03)
[2017-08-05] MEDS: Folic Acid TAB* 1 MG PO SCH (09:03)
[2017-08-05] MEDS: Digoxin TAB* 0.125 MG PO SCH (09:04)
[2017-08-05] MEDS: Artificial Tears* 15 ML BTL BOTH EYES PRN (12:16)
--- NOTE | 2017-08-05 13:23 | PN ---
Subjective Date of Service: 08/05/17 Interval History: Patient states he feels great, Patient denies weakness, confusion, word finding difficulties. Patient is attempting to work on restoring his IADL functioning while he is in the hospital. Patient denies CP, SOB, F/C, N/V, Abdominal pain, diarrhea, constipation, palpitations, lightheadedness, or other pain. Family History: Unchanged from Admission Social History: Unchanged from Admission Past Medical History: Unchanged from Admission Objective Active Medications: Acetaminophen (Tylenol Tab*) 650 mg PO Q6H PRN PRN Reason: FEVER/PAIN Apixaban (Eliquis) 2.5 mg PO BID [facility] Last Admin: 08/05/17 08:59 Dose: 2.5 mg Ascorbic Acid (Vitamin C Tab*) 500 mg PO DAILY [facility] Last Admin: 08/05/17 09:01 Dose: 500 mg Atorvastatin Calcium (Lipitor*) 40 mg PO 2100 [facility] Last Admin: 08/04/17 21:02 Dose: 40 mg Cetirizine HCl (Zyrtec*) 10 mg PO DAILY [facility] PRN Reason: Protocol Last Admin: 08/05/17 09:02 Dose: 10 mg Cyanocobalamin (Vitamin B12 Tab*) 1,000 mcg PO DAILY [facility] Last Admin: 08/05/17 09:03 Dose: 1,000 mcg Digoxin (Lanoxin Tab*) 0.125 mg PO DAILY [facility] Last Admin: 08/05/17 09:04 Dose: 0.125 mg Ferrous Sulfate (Ferrous Sulfate Tab*) 325 mg PO DAILY [facility] Last Admin: 08/05/17 08:58 Dose: 325 mg Folic Acid (Folvite Tab*) 1 mg PO DAILY [facility] Last Admin: 08/05/17 09:03 Dose: 1 mg Gabapentin (Neurontin Cap(*)) 100 mg PO BID [facility] Last Admin: 08/05/17 09:00 Dose: 100 mg Heparin Sodium (Porcine) (Heparin Flush Picc/Ml/Cvc(*)) 1 ml FLUSH 0600,1800 [facility] PRN Reason: Protocol Last Admin: 08/05/17 05:32 Dose: 1 ml Ceftriaxone Sodium 2 gm/ (Sodium Chloride) 100 mls @ 200 mls/hr IVPB Q12H [facility] Last Admin: 08/05/17 10:31 Dose: 200 mls/hr Ampicillin Sodium 2 gm/ Sodium (Chloride) 100 mls @ 200 mls/hr IVPB Q6HR [facility] Last Admin: 08/05/17 12:57 Dose: 200 mls/hr Insulin Human Lispro (Humalog*) 0 units SUBCUT AC [facility] PRN Reason: Protocol Last Admin: 08/05/17 12:15 Dose: 2 unit Levothyroxine Sodium (Synthroid Tab*) 100 mcg PO DAILY [facility] Last Admin: 08/05/17 08:58 Dose: 100 mcg Melatonin (Melatonin (Nf)) 3 mg PO BEDTIME [facility] Last Admin: 08/04/17 21:02 Dose: 3 mg Metformin HCl (Glucophage*) 500 mg PO DAILY [facility] Last Admin: 08/05/17 09:02 Dose: 500 mg Metoprolol Succinate (Toprol Xl Tab*) 25 mg PO DAILY [facility] Last Admin: 08/05/17 09:00 Dose: 25 mg Multivitamins/Minerals (Theragran/Minerals Tab*) 1 tab PO DAILY [facility] Last Admin: 08/05/17 08:59 Dose: 1 tab Omeprazole (Prilosec Cap*) 20 mg PO 0600 [facility] Last Admin: 08/05/17 05:32 Dose: 20 mg Polyvinyl Alcohol (Polyvinyl Alcohol 1.4% Opth*) 1 drop BOTH EYES TID PRN PRN Reason: DRY EYE Last Admin: 08/05/17 12:16 Dose: 1 drop Vital Signs - 8 hr 08/05/17 08/05/17 08/05/17 07:27 09:00 09:04 Pulse Rate 93 92 Respiratory 18 18 Rate Blood Pressure 103/44 (mmHg) O2 Sat by Pulse 99 Oximetry 08/05/17 10:56 Pulse Rate Respiratory 18 Rate Blood Pressure (mmHg) O2 Sat by Pulse Oximetry Oxygen Devices in Use Now: None Appearance: Patient is an 87yo male who appears stated age and is sitting in the bed in [facility]. Eyes: No Scleral Icterus, PERRLA Ears/Nose/Mouth/Throat: NL Teeth, Lips, Gums, Clear Oropharnyx, Mucous Membranes Moist Neck: NL Appearance and Movements; NL JVP, Trachea Midline Respiratory: Symmetrical Chest Expansion and Respiratory Effort, Clear to Auscultation Cardiovascular: NL Sounds; No Murmurs; No JVD, RRR, No Edema, - - Pulses 2+ in B /L LE. Abdominal: NL Sounds; No Tenderness; No Distention, No Hepatosplenomegaly Lymphatic: No Cervical Adenopathy Extremities: No Edema, No Clubbing, Cyanosis Skin: No Nodules or Sclerosis, - - Purpura on B/L UE. Neurological: Alert and Oriented x 3, NL Sensation, - - CN II-XII intact. No word finding difficulty. Gait normal. Stable weakness and limited ROM in LUE. Result Diagrams: 08/04/17 05:00 08/04/17 05:00 Assess/Plan/Problems-Billing Assessment: Patient is an 87yo male with a PMH significant for CVAx3, Aortic Valve endocarditis, Mitral valve replacement, Afib, nephrolithiasis with pyelonephritis and anemia who is admitted swing for 42 total days of IV antibiotics which was complicated by a stroke possibly related to his endocarditis. - Patient Problems (1) Bacteremia due to Enterococcus Current Visit: No Status: Acute Code(s): R78.81 - BACTEREMIA; B95.2 - ENTEROCOCCUS THE CAUSE OF DISEASES CLASSIFIED ELSEWHERE SNOMED Code(s): 901427793404 Comment: The plan is for 42 days of ampicillin and ceftriaxone per Dr. Abdalla for the enterococcus bacteremia and AV endocarditis. Will need repeat JUAN during his last week of Abx therapy. Likely cause of embolic stroke. No brain abscess identified. Changed Ampicillin to Q6H per Pharmacy recommendation. On Ceftriaxone Q12H. (2) Endocarditis Current Visit: No Status: Acute Code(s): I38 - ENDOCARDITIS, VALVE UNSPECIFIED SNOMED Code(s): 97886488 Comment: Appreciate ID input. Aortic valve vegetation seen on JUAN 07/14/17. Management as above. Probable cause of stroke. Family and patient decided not to pursue valve replacement. (3) CVA (cerebral vascular accident) Current Visit: No Status: Acute Code(s): I63.9 - CEREBRAL INFARCTION, UNSPECIFIED SNOMED Code(s): 282815372 Comment: Appreciate neurology and ID input. Patient had a CVA with residual aphasia in the evening of 07/30. Patient unable to follow commands consistently, express himself, form words, or spontaneously feed himself on 07/31. Dramatically improved. Occasional word-finding difficulty. Otherwise at baseline per son. Patient has a history of CVA in 2016 with possible left sided residual weakness. Patient also has rotator cuff pathology which limits movement on that side. Family and patient decided not to seek evaluation for surgery. PT/OT. Supportive care. LDL at 90, Lipitor increased to 40mg per neuro. (4) Anemia Current Visit: No Status: Acute Code(s): D64.9 - ANEMIA, UNSPECIFIED SNOMED Code(s): 730736464 Comment: Stable around 10. Continue iron supplementation. Hematuria and positive Guiac on admission. Most recent guiac negative. (5) Atrial fibrillation Current Visit: No Status: Acute Code(s): I48.91 - UNSPECIFIED ATRIAL FIBRILLATION SNOMED Code(s): 97106347 Comment: On metoprolol and digoxin. Continue Eliquis. Rate controlled. (6) Diabetes Current Visit: No Status: Acute Code(s): E11.9 - TYPE 2 DIABETES MELLITUS WITHOUT COMPLICATIONS SNOMED Code(s): 22510103 Comment: Good control. FSBG and Lispro insulin. (7) Hypothyroid Current Visit: No Status: Acute Code(s): E03.9 - HYPOTHYROIDISM, UNSPECIFIED SNOMED Code(s): 12324966 Comment: TSH in good range 07/13/17. Continue current synthroid dose. (8) DNR (do not resuscitate) Current Visit: No Status: Acute Comment: DNR (9) DVT prophylaxis Current Visit: No Status: Acute Code(s): XKK6702 - SNOMED Code(s): 924180626 Comment: Eliquis Status and Disposition: Patient is admitted Swing.
[2017-08-05] MEDS: CMCS: Melatonin (NF) 3 MG TAB PO SCH (22:12)
[2017-08-05] MEDS: Atorvastatin* 40 MG TAB PO SCH (22:12)
[2017-08-06] MEDS: Ampicillin IV* 2 GM in NS 0.9% 100 ML* 100 ML IVPB SCH ×5 (00:13→23:45)
[2017-08-06] MEDS: Omeprazole CAP* 20 MG PO SCH (05:15)
[2017-08-06] MEDS: Insulin LISPRO* 1 UNITS UNIT SUBCUT SCH ×3 (09:29→17:19)
[2017-08-06] MEDS: Multivitamins/Minerals TAB PO SCH (09:40)
[2017-08-06] MEDS: Ascorbic Acid TAB* 500 MG PO SCH (09:40)
[2017-08-06] MEDS: Metoprolol Succinate XL TAB* 25 MG PO SCH (09:40)
[2017-08-06] MEDS: Ferrous Sulfate TAB* 325 MG PO SCH (09:40)
[2017-08-06] MEDS: metFORMIN* 500 MG TAB PO SCH (09:40)
[2017-08-06] MEDS: Cetirizine* 10 MG TAB PO SCH (09:40)
[2017-08-06] MEDS: Folic Acid TAB* 1 MG PO SCH (09:40)
[2017-08-06] MEDS: Levothyroxine TAB* 100 MCG TAB PO SCH (09:41)
[2017-08-06] MEDS: Digoxin TAB* 0.125 MG PO SCH (09:41)
[2017-08-06] MEDS: Apixaban* 2.5 MG TAB PO SCH ×2 (09:41→23:12)
[2017-08-06] MEDS: Gabapentin CAP(*) 100 MG PO SCH ×2 (09:41→23:12)
[2017-08-06] MEDS: Cyanocobalamin TAB* 500 MCG PO SCH (09:41)
[2017-08-06] MEDS: Artificial Tears* 15 ML BTL BOTH EYES PRN (09:42)
[2017-08-06] MEDS: Atorvastatin* 40 MG TAB PO SCH (23:12)
[2017-08-06] MEDS: CMCS: Melatonin (NF) 3 MG TAB PO SCH (23:12)
[2017-08-07] MEDS: Ampicillin IV* 2 GM in NS 0.9% 100 ML* 100 ML IVPB SCH ×3 (05:26→17:00)
[2017-08-07] MEDS: Omeprazole CAP* 20 MG PO SCH (05:26)
[2017-08-07] MEDS: Digoxin TAB* 0.125 MG PO SCH (07:34)
[2017-08-07] MEDS: Insulin LISPRO* 1 UNITS UNIT SUBCUT SCH ×3 (07:34→16:22)
[2017-08-07] MEDS: Apixaban* 2.5 MG TAB PO SCH ×2 (07:34→21:03)
[2017-08-07] MEDS: Multivitamins/Minerals TAB PO SCH (07:34)
[2017-08-07] MEDS: Ferrous Sulfate TAB* 325 MG PO SCH (07:34)
[2017-08-07] MEDS: Cetirizine* 10 MG TAB PO SCH (07:35)
[2017-08-07] MEDS: Metoprolol Succinate XL TAB* 25 MG PO SCH (07:35)
[2017-08-07] MEDS: Cyanocobalamin TAB* 500 MCG PO SCH (07:35)
[2017-08-07] MEDS: metFORMIN* 500 MG TAB PO SCH (07:35)
[2017-08-07] MEDS: Gabapentin CAP(*) 100 MG PO SCH ×2 (07:35→21:03)
[2017-08-07] MEDS: Levothyroxine TAB* 100 MCG TAB PO SCH (07:35)
[2017-08-07] MEDS: Ascorbic Acid TAB* 500 MG PO SCH (07:36)
[2017-08-07] MEDS: Folic Acid TAB* 1 MG PO SCH (07:36)
[2017-08-07] MEDS: Artificial Tears* 15 ML BTL BOTH EYES PRN ×2 (16:49→21:03)
[2017-08-07] MEDS: Atorvastatin* 40 MG TAB PO SCH (21:03)
[2017-08-07] MEDS: CMCS: Melatonin (NF) 3 MG TAB PO SCH (21:03)
[2017-08-08] MEDS: Ampicillin IV* 2 GM in NS 0.9% 100 ML* 100 ML IVPB SCH ×5 (00:01→23:49)
[2017-08-08] MEDS: Omeprazole CAP* 20 MG PO SCH (06:03)
[2017-08-08] MEDS: Ferrous Sulfate TAB* 325 MG PO SCH (07:44)
[2017-08-08] MEDS: Artificial Tears* 15 ML BTL BOTH EYES PRN (07:44)
[2017-08-08] MEDS: metFORMIN* 500 MG TAB PO SCH (07:45)
[2017-08-08] MEDS: Multivitamins/Minerals TAB PO SCH (07:45)
[2017-08-08] MEDS: Apixaban* 2.5 MG TAB PO SCH ×2 (07:45→20:01)
[2017-08-08] MEDS: Levothyroxine TAB* 100 MCG TAB PO SCH (07:45)
[2017-08-08] MEDS: Cyanocobalamin TAB* 500 MCG PO SCH (07:45)
[2017-08-08] MEDS: Folic Acid TAB* 1 MG PO SCH (07:45)
[2017-08-08] MEDS: Metoprolol Succinate XL TAB* 25 MG PO SCH (07:45)
[2017-08-08] MEDS: Cetirizine* 10 MG TAB PO SCH (07:45)
[2017-08-08] MEDS: Ascorbic Acid TAB* 500 MG PO SCH (07:45)
[2017-08-08] MEDS: Digoxin TAB* 0.125 MG PO SCH (07:45)
[2017-08-08] MEDS: Gabapentin CAP(*) 100 MG PO SCH ×2 (07:46→20:01)
[2017-08-08] MEDS: Insulin LISPRO* 1 UNITS UNIT SUBCUT SCH ×3 (07:46→16:21)
[2017-08-08] MEDS: Atorvastatin* 40 MG TAB PO SCH (20:01)
[2017-08-08] MEDS: CMCS: Melatonin (NF) 3 MG TAB PO SCH (20:01)
[2017-08-09] MEDS: Ampicillin IV* 2 GM in NS 0.9% 100 ML* 100 ML IVPB SCH ×3 (05:38→17:45)
[2017-08-09] MEDS: Omeprazole CAP* 20 MG PO SCH (06:18)
[2017-08-09] MEDS: Insulin LISPRO* 1 UNITS UNIT SUBCUT SCH ×3 (07:37→17:23)
[2017-08-09] MEDS: Ferrous Sulfate TAB* 325 MG PO SCH (09:01)
[2017-08-09] MEDS: Multivitamins/Minerals TAB PO SCH (09:01)
[2017-08-09] MEDS: Gabapentin CAP(*) 100 MG PO SCH ×2 (09:01→20:07)
[2017-08-09] MEDS: Cetirizine* 10 MG TAB PO SCH (09:02)
[2017-08-09] MEDS: metFORMIN* 500 MG TAB PO SCH (09:02)
[2017-08-09] MEDS: Apixaban* 2.5 MG TAB PO SCH ×2 (09:02→20:07)
[2017-08-09] MEDS: Metoprolol Succinate XL TAB* 25 MG PO SCH (09:02)
[2017-08-09] MEDS: Ascorbic Acid TAB* 500 MG PO SCH (09:02)
[2017-08-09] MEDS: Digoxin TAB* 0.125 MG PO SCH (09:02)
[2017-08-09] MEDS: Levothyroxine TAB* 100 MCG TAB PO SCH (09:02)
[2017-08-09] MEDS: Folic Acid TAB* 1 MG PO SCH (09:02)
[2017-08-09] MEDS: Cyanocobalamin TAB* 500 MCG PO SCH (09:03)
[2017-08-09] MEDS: Artificial Tears* 15 ML BTL BOTH EYES PRN (12:01)
[2017-08-09] MEDS: Atorvastatin* 40 MG TAB PO SCH (20:07)
[2017-08-09] MEDS: CMCS: Melatonin (NF) 3 MG TAB PO SCH (20:07)
[2017-08-10] MEDS: Ampicillin IV* 2 GM in NS 0.9% 100 ML* 100 ML IVPB SCH ×4 (00:02→17:17)
[2017-08-10] MEDS: Omeprazole CAP* 20 MG PO SCH (05:01)
[2017-08-10] MEDS: Insulin LISPRO* 1 UNITS UNIT SUBCUT SCH ×3 (09:06→17:04)
[2017-08-10] MEDS: Multivitamins/Minerals TAB PO SCH (09:38)
[2017-08-10] MEDS: Ascorbic Acid TAB* 500 MG PO SCH (09:39)
[2017-08-10] MEDS: Levothyroxine TAB* 100 MCG TAB PO SCH (09:39)
[2017-08-10] MEDS: Ferrous Sulfate TAB* 325 MG PO SCH (09:39)
[2017-08-10] MEDS: Digoxin TAB* 0.125 MG PO SCH (09:39)
[2017-08-10] MEDS: Folic Acid TAB* 1 MG PO SCH (09:39)
[2017-08-10] MEDS: Cetirizine* 10 MG TAB PO SCH (09:39)
[2017-08-10] MEDS: Apixaban* 2.5 MG TAB PO SCH ×2 (09:39→21:34)
[2017-08-10] MEDS: metFORMIN* 500 MG TAB PO SCH (09:39)
[2017-08-10] MEDS: Gabapentin CAP(*) 100 MG PO SCH ×2 (09:39→21:35)
[2017-08-10] MEDS: Metoprolol Succinate XL TAB* 25 MG PO SCH (09:39)
[2017-08-10] MEDS: Cyanocobalamin TAB* 500 MCG PO SCH (09:39)
[2017-08-10] MEDS: CMCS: Melatonin (NF) 3 MG TAB PO SCH (21:34)
[2017-08-10] MEDS: Atorvastatin* 40 MG TAB PO SCH (21:34)
[2017-08-11] MEDS: Ampicillin IV* 2 GM in NS 0.9% 100 ML* 100 ML IVPB SCH ×4 (00:31→18:38)
[2017-08-11] MEDS: Omeprazole CAP* 20 MG PO SCH (05:42)
[2017-08-11] MEDS: Insulin LISPRO* 1 UNITS UNIT SUBCUT SCH ×3 (07:41→19:58)
[2017-08-11] MEDS: Ascorbic Acid TAB* 500 MG PO SCH (10:28)
[2017-08-11] MEDS: Ferrous Sulfate TAB* 325 MG PO SCH (10:28)
[2017-08-11] MEDS: Multivitamins/Minerals TAB PO SCH (10:28)
[2017-08-11] MEDS: Levothyroxine TAB* 100 MCG TAB PO SCH (10:29)
--- NOTE | 2017-08-11 10:29 | PN ---
Subjective Date of Service: 08/11/17 Interval History: Patient seen and examined. Feeling well, no complaints. Denies fever or chills, no pain, no SOB, no n/v. Family History: Unchanged from Admission Social History: Unchanged from Admission Past Medical History: Unchanged from Admission Objective Active Medications: Acetaminophen (Tylenol Tab*) 650 mg PO Q6H PRN PRN Reason: FEVER/PAIN Apixaban (Eliquis) 2.5 mg PO BID [facility] Last Admin: 08/10/17 21:34 Dose: 2.5 mg Ascorbic Acid (Vitamin C Tab*) 500 mg PO DAILY [facility] Last Admin: 08/10/17 09:39 Dose: 500 mg Atorvastatin Calcium (Lipitor*) 40 mg PO 2100 [facility] Last Admin: 08/10/17 21:34 Dose: 40 mg Cetirizine HCl (Zyrtec*) 10 mg PO DAILY [facility] PRN Reason: Protocol Last Admin: 08/10/17 09:39 Dose: 10 mg Cyanocobalamin (Vitamin B12 Tab*) 1,000 mcg PO DAILY [facility] Last Admin: 08/10/17 09:39 Dose: 1,000 mcg Digoxin (Lanoxin Tab*) 0.125 mg PO DAILY [facility] Last Admin: 08/10/17 09:39 Dose: 0.125 mg Ferrous Sulfate (Ferrous Sulfate Tab*) 325 mg PO DAILY [facility] Last Admin: 08/10/17 09:39 Dose: 325 mg Folic Acid (Folvite Tab*) 1 mg PO DAILY [facility] Last Admin: 08/10/17 09:39 Dose: 1 mg Gabapentin (Neurontin Cap(*)) 100 mg PO BID [facility] Last Admin: 08/10/17 21:35 Dose: 100 mg Heparin Sodium (Porcine) (Heparin Flush Picc/Ml/Cvc(*)) 1 ml FLUSH 0600,1800 [facility] PRN Reason: Protocol Last Admin: 08/11/17 06:37 Dose: 2 ml Ceftriaxone Sodium 2 gm/ (Sodium Chloride) 100 mls @ 200 mls/hr IVPB Q12H [facility] Last Admin: 08/10/17 23:37 Dose: 200 mls/hr Ampicillin Sodium 2 gm/ Sodium (Chloride) 100 mls @ 200 mls/hr IVPB Q6HR [facility] Last Admin: 08/11/17 05:42 Dose: 200 mls/hr Insulin Human Lispro (Humalog*) 0 units SUBCUT AC [facility] PRN Reason: Protocol Last Admin: 08/11/17 07:41 Dose: Not Given Levothyroxine Sodium (Synthroid Tab*) 100 mcg PO DAILY [facility] Last Admin: 08/10/17 09:39 Dose: 100 mcg Melatonin (Melatonin (Nf)) 3 mg PO BEDTIME [facility] Last Admin: 08/10/17 21:34 Dose: 3 mg Metformin HCl (Glucophage*) 500 mg PO DAILY [facility] Last Admin: 08/10/17 09:39 Dose: 500 mg Metoprolol Succinate (Toprol Xl Tab*) 25 mg PO DAILY [facility] Last Admin: 08/10/17 09:39 Dose: 25 mg Multivitamins/Minerals (Theragran/Minerals Tab*) 1 tab PO DAILY [facility] Last Admin: 08/10/17 09:38 Dose: 1 tab Omeprazole (Prilosec Cap*) 20 mg PO 0600 [facility] Last Admin: 08/11/17 05:42 Dose: 20 mg Polyvinyl Alcohol (Polyvinyl Alcohol 1.4% Opth*) 1 drop BOTH EYES TID PRN PRN Reason: DRY EYE Last Admin: 08/09/17 12:01 Dose: 1 drop Vital Signs - 8 hr 08/11/17 03:20 Respiratory 18 Rate Oxygen Devices in Use Now: None Appearance: Alert, NAD Eyes: No Scleral Icterus Ears/Nose/Mouth/Throat: NL Teeth, Lips, Gums Neck: Trachea Midline Respiratory: Symmetrical Chest Expansion and Respiratory Effort, Clear to Auscultation Cardiovascular: NL Sounds; No Murmurs; No JVD, RRR Abdominal: NL Sounds; No Tenderness; No Distention Extremities: No Edema, No Clubbing, Cyanosis Neurological: Alert and Oriented x 3 Nutrition: Taking PO's Result Diagrams: 08/04/17 05:00 08/04/17 05:00 Assess/Plan/Problems-Billing Assessment: Patient is an 87yo male with a PMH significant for CVAx3, Aortic Valve endocarditis, Mitral valve replacement, Afib, nephrolithiasis with pyelonephritis and anemia who is admitted swing for 42 total days of IV antibiotics which was complicated by a stroke possibly related to his endocarditis. - Patient Problems (1) Bacteremia due to Enterococcus Code(s): R78.81 - BACTEREMIA; B95.2 - ENTEROCOCCUS THE CAUSE OF DISEASES CLASSIFIED ELSEWHERE SNOMED Code(s): 700833443790 Comment: - Continue plan for IV atbx for enterococcus bacteremia and AV endocarditis - Day 31 of 42 days of ampicillin Q6h and ceftriaxone Q12 per Dr[address] Abdalla . - Repeat JUAN during his last week of Abx therapy. - Likely cause of embolic stroke. No brain abscess identified. (2) Endocarditis Code(s): I38 - ENDOCARDITIS, VALVE UNSPECIFIED SNOMED Code(s): 55549163 Comment: - Aortic valve vegetation seen on JUAN 07/14/17 - Family and patient decided not to pursue valve replacement - Continue conservative mgmt with atbx (3) CVA (cerebral vascular accident) Code(s): I63.9 - CEREBRAL INFARCTION, UNSPECIFIED SNOMED Code(s): 717176747 Comment: - Patient had a CVA with residual aphasia in the evening of 07/30, likely 2/2 infective endocarditis - Improvement of CVA sequelae (4) Diabetes Status: Acute Code(s): E11.9 - TYPE 2 DIABETES MELLITUS WITHOUT COMPLICATIONS SNOMED Code(s): 99658143 Comment: - Continue BG ACHS and Lispro SS (5) Hypothyroid Code(s): E03.9 - HYPOTHYROIDISM, UNSPECIFIED SNOMED Code(s): 62327834 Comment: - Continue synthroid daily (6) Atrial fibrillation Code(s): I48.91 - UNSPECIFIED ATRIAL FIBRILLATION SNOMED Code(s): 76793462 Comment: - Stable on metoprolol and digoxin for rate control - Continue Eliquis (7) DVT prophylaxis Code(s): LCU0703 - SNOMED Code(s): 879111964 Comment: - On Eliquis (8) DNR (do not resuscitate) Comment: Status and Disposition: Remain on swing status until 08/25/17. Counseling and/or Coordination of Care Minutes: coordinated with ANGEL
[2017-08-11] MEDS: metFORMIN* 500 MG TAB PO SCH (10:30)
[2017-08-11] MEDS: Cyanocobalamin TAB* 500 MCG PO SCH (10:30)
[2017-08-11] MEDS: Gabapentin CAP(*) 100 MG PO SCH ×2 (10:30→19:50)
[2017-08-11] MEDS: Apixaban* 2.5 MG TAB PO SCH ×2 (10:30→19:49)
[2017-08-11] MEDS: Cetirizine* 10 MG TAB PO SCH (10:30)
[2017-08-11] MEDS: Digoxin TAB* 0.125 MG PO SCH (10:31)
[2017-08-11] MEDS: Folic Acid TAB* 1 MG PO SCH (10:31)
[2017-08-11 10:58] LABS: Hematocrit 32 % (42-52); Hemoglobin 10.7 g/dl (14.0-18.0); Mean Corpuscular HGB Conc 33 g/dl (31-36); Mean Corpuscular Hemoglobin 33 pg (27-31); Mean Corpuscular Volume 98 fL (80-94); Mean Platelet Volume 11 um3 (7.4-10.4); Platelet Count 227 10^3/ul (150-450); Red Cell Distribution Width 25 % (10.5-15); White Blood Count 6.3 10^3/ul (3.5-10.8)
[2017-08-11 11:23] LABS: ABS Basophils 0.1 10^3/ul (0-0.2); ABS Eosinophils 0.1 10^3/ul (0-0.6); ABS Lymphocytes 1.4 10^3/ul (1.0-4.8); ABS Monocytes 0.1 10^3/ul (0-0.8); ABS Neutrophils 4.6 10^3/ul (1.5-7.7); ABS Nucleated RBC 0 10^3/ul; Eosinophil % 1.9 % (0-6); Lymphocyte % 21.9 % (25-47); Nucleated Red Blood Cells % 0.3
[2017-08-11] MEDS: Metoprolol Succinate XL TAB* 25 MG PO SCH (13:55)
[2017-08-11] MEDS: CMCS: Melatonin (NF) 3 MG TAB PO SCH (19:49)
[2017-08-11] MEDS: Atorvastatin* 40 MG TAB PO SCH (19:49)
[2017-08-12] MEDS: Ampicillin IV* 2 GM in NS 0.9% 100 ML* 100 ML IVPB SCH ×5 (01:02→23:54)
[2017-08-12] MEDS: Omeprazole CAP* 20 MG PO SCH (06:37)
[2017-08-12] MEDS: Insulin LISPRO* 1 UNITS UNIT SUBCUT SCH ×3 (10:26→18:09)
[2017-08-12] MEDS: Cyanocobalamin TAB* 500 MCG PO SCH (10:58)
[2017-08-12] MEDS: Gabapentin CAP(*) 100 MG PO SCH ×2 (10:59→20:38)
[2017-08-12] MEDS: Apixaban* 2.5 MG TAB PO SCH ×2 (11:00→20:38)
[2017-08-12] MEDS: Folic Acid TAB* 1 MG PO SCH (11:01)
[2017-08-12] MEDS: Digoxin TAB* 0.125 MG PO SCH (11:01)
[2017-08-12] MEDS: Cetirizine* 10 MG TAB PO SCH (11:01)
[2017-08-12] MEDS: Metoprolol Succinate XL TAB* 25 MG PO SCH (11:02)
[2017-08-12] MEDS: Multivitamins/Minerals TAB PO SCH (11:02)
[2017-08-12] MEDS: Ferrous Sulfate TAB* 325 MG PO SCH (11:02)
[2017-08-12] MEDS: Levothyroxine TAB* 100 MCG TAB PO SCH (11:03)
[2017-08-12] MEDS: metFORMIN* 500 MG TAB PO SCH (11:03)
[2017-08-12] MEDS: Ascorbic Acid TAB* 500 MG PO SCH (11:03)
[2017-08-12] MEDS: Artificial Tears* 15 ML BTL BOTH EYES PRN (13:32)
[2017-08-12] MEDS: Atorvastatin* 40 MG TAB PO SCH (20:38)
[2017-08-12] MEDS: CMCS: Melatonin (NF) 3 MG TAB PO SCH (20:38)
[2017-08-13] MEDS: Ampicillin IV* 2 GM in NS 0.9% 100 ML* 100 ML IVPB SCH ×3 (05:39→18:10)
[2017-08-13] MEDS: Omeprazole CAP* 20 MG PO SCH (05:39)
[2017-08-13] MEDS: Insulin LISPRO* 1 UNITS UNIT SUBCUT SCH ×3 (08:00→17:53)
[2017-08-13] MEDS: Cetirizine* 10 MG TAB PO SCH (10:43)
[2017-08-13] MEDS: Multivitamins/Minerals TAB PO SCH (10:43)
[2017-08-13] MEDS: metFORMIN* 500 MG TAB PO SCH (10:44)
[2017-08-13] MEDS: Ferrous Sulfate TAB* 325 MG PO SCH (10:44)
[2017-08-13] MEDS: Folic Acid TAB* 1 MG PO SCH (10:44)
[2017-08-13] MEDS: Cyanocobalamin TAB* 500 MCG PO SCH (10:44)
[2017-08-13] MEDS: Metoprolol Succinate XL TAB* 25 MG PO SCH (10:45)
[2017-08-13] MEDS: Apixaban* 2.5 MG TAB PO SCH ×2 (10:45→20:17)
[2017-08-13] MEDS: Levothyroxine TAB* 100 MCG TAB PO SCH (10:45)
[2017-08-13] MEDS: Gabapentin CAP(*) 100 MG PO SCH ×2 (10:46→20:17)
[2017-08-13] MEDS: Digoxin TAB* 0.125 MG PO SCH (10:47)
[2017-08-13] MEDS: Ascorbic Acid TAB* 500 MG PO SCH (10:58)
[2017-08-13] MEDS: CMCS: Melatonin (NF) 3 MG TAB PO SCH (20:18)
[2017-08-13] MEDS: Atorvastatin* 40 MG TAB PO SCH (20:18)
[2017-08-14] MEDS: Ampicillin IV* 2 GM in NS 0.9% 100 ML* 100 ML IVPB SCH ×4 (01:26→17:28)
[2017-08-14] MEDS: Omeprazole CAP* 20 MG PO SCH (05:28)
[2017-08-14] MEDS: Insulin LISPRO* 1 UNITS UNIT SUBCUT SCH ×3 (07:38→17:07)
[2017-08-14] MEDS: Cyanocobalamin TAB* 500 MCG PO SCH (09:00)
[2017-08-14] MEDS: Gabapentin CAP(*) 100 MG PO SCH ×2 (09:00→20:35)
[2017-08-14] MEDS: Ferrous Sulfate TAB* 325 MG PO SCH (09:01)
[2017-08-14] MEDS: Cetirizine* 10 MG TAB PO SCH (09:01)
[2017-08-14] MEDS: Multivitamins/Minerals TAB PO SCH (09:01)
[2017-08-14] MEDS: Digoxin TAB* 0.125 MG PO SCH (09:02)
[2017-08-14] MEDS: Folic Acid TAB* 1 MG PO SCH (09:03)
[2017-08-14] MEDS: Levothyroxine TAB* 100 MCG TAB PO SCH (09:03)
[2017-08-14] MEDS: Metoprolol Succinate XL TAB* 25 MG PO SCH (09:03)
[2017-08-14] MEDS: metFORMIN* 500 MG TAB PO SCH (09:03)
[2017-08-14] MEDS: Ascorbic Acid TAB* 500 MG PO SCH (09:06)
[2017-08-14] MEDS: Apixaban* 2.5 MG TAB PO SCH ×2 (09:07→20:36)
[2017-08-14] MEDS: Atorvastatin* 40 MG TAB PO SCH (20:36)
[2017-08-14] MEDS: CMCS: Melatonin (NF) 3 MG TAB PO SCH (20:36)
[2017-08-15] MEDS: Ampicillin IV* 2 GM in NS 0.9% 100 ML* 100 ML IVPB SCH ×5 (00:06→23:43)
[2017-08-15] MEDS: Omeprazole CAP* 20 MG PO SCH (06:29)
[2017-08-15] MEDS: Insulin LISPRO* 1 UNITS UNIT SUBCUT SCH ×3 (07:33→16:23)
[2017-08-15] MEDS: metFORMIN* 500 MG TAB PO SCH (07:34)
[2017-08-15] MEDS: Artificial Tears* 15 ML BTL BOTH EYES PRN (07:34)
[2017-08-15] MEDS: Ascorbic Acid TAB* 500 MG PO SCH (07:35)
[2017-08-15] MEDS: Ferrous Sulfate TAB* 325 MG PO SCH (07:35)
[2017-08-15] MEDS: Multivitamins/Minerals TAB PO SCH (07:35)
[2017-08-15] MEDS: Apixaban* 2.5 MG TAB PO SCH ×2 (07:35→21:07)
[2017-08-15] MEDS: Metoprolol Succinate XL TAB* 25 MG PO SCH (07:35)
[2017-08-15] MEDS: Gabapentin CAP(*) 100 MG PO SCH ×2 (07:35→21:07)
[2017-08-15] MEDS: Digoxin TAB* 0.125 MG PO SCH (07:35)
[2017-08-15] MEDS: Folic Acid TAB* 1 MG PO SCH (07:35)
[2017-08-15] MEDS: Levothyroxine TAB* 100 MCG TAB PO SCH (07:36)
[2017-08-15] MEDS: Cyanocobalamin TAB* 500 MCG PO SCH (07:36)
[2017-08-15] MEDS: Cetirizine* 10 MG TAB PO SCH (07:36)
[2017-08-15] MEDS: CMCS: Melatonin (NF) 3 MG TAB PO SCH (21:07)
[2017-08-15] MEDS: Atorvastatin* 40 MG TAB PO SCH (21:07)
[2017-08-16] MEDS: Omeprazole CAP* 20 MG PO SCH (05:37)
[2017-08-16] MEDS: Ampicillin IV* 2 GM in NS 0.9% 100 ML* 100 ML IVPB SCH ×4 (05:37→23:56)
[2017-08-16] MEDS: Insulin LISPRO* 1 UNITS UNIT SUBCUT SCH ×3 (07:42→17:21)
--- NOTE | 2017-08-16 08:35 | PN ---
Subjective Date of Service: 08/16/17 Interval History: Ms. Concepcion reports feeling well in general. He does note some left upper extremity swelling which he is concerned is new. He denies other complaint including chest pain, SOB, nausea, or abdominal pain. Family History: Unchanged from Admission Social History: Unchanged from Admission Past Medical History: Unchanged from Admission Objective Active Medications: Acetaminophen (Tylenol Tab*) 650 mg PO Q6H PRN Apixaban (Eliquis) 2.5 mg PO BID [facility] Ascorbic Acid (Vitamin C Tab*) 500 mg PO DAILY [facility] Atorvastatin Calcium (Lipitor*) 40 mg PO 2100 [facility] Cetirizine HCl (Zyrtec*) 10 mg PO DAILY [facility] Cyanocobalamin (Vitamin B12 Tab*) 1,000 mcg PO DAILY [facility] Digoxin (Lanoxin Tab*) 0.125 mg PO DAILY [facility] Ferrous Sulfate (Ferrous Sulfate Tab*) 325 mg PO DAILY [facility] Folic Acid (Folvite Tab*) 1 mg PO DAILY [facility] Gabapentin (Neurontin Cap(*)) 100 mg PO BID [facility] Heparin Sodium (Porcine) (Heparin Flush Picc/Ml/Cvc(*)) 1 ml FLUSH 0600,1800 [facility] Ceftriaxone Sodium 2 gm/ (Sodium Chloride) 100 mls @ 200 mls/hr IVPB Q12H [facility] Ampicillin Sodium 2 gm/ Sodium (Chloride) 100 mls @ 200 mls/hr IVPB Q6HR [facility] Insulin Human Lispro (Humalog*) 0 units SUBCUT AC [facility] Levothyroxine Sodium (Synthroid Tab*) 100 mcg PO DAILY [facility] Melatonin (Melatonin (Nf)) 3 mg PO BEDTIME [facility] Metformin HCl (Glucophage*) 500 mg PO DAILY [facility] Metoprolol Succinate (Toprol Xl Tab*) 25 mg PO DAILY [facility] Multivitamins/Minerals (Theragran/Minerals Tab*) 1 tab PO DAILY [facility] Omeprazole (Prilosec Cap*) 20 mg PO 0600 [facility] Polyvinyl Alcohol (Polyvinyl Alcohol 1.4% Opth*) 1 drop BOTH EYES TID PRN Vital Signs: Temp Pulse Resp BP Pulse Ox 97.0 F 83 16 144/58 98 08/16/17 07:39 08/16/17 07:39 08/16/17 03:23 08/16/17 07:39 08/16/17 07:39 Oxygen Devices in Use Now: None Appearance: Male sitting up in chair in NAD Eyes: No Scleral Icterus Ears/Nose/Mouth/Throat: Mucous Membranes Moist Neck: Trachea Midline Respiratory: Symmetrical Chest Expansion and Respiratory Effort, Clear to Auscultation Cardiovascular: NL Sounds; No Murmurs; No JVD, - - L UE edema, pitting, no erythema Abdominal: NL Sounds; No Tenderness; No Distention Skin: No Rash or Ulcers Neurological: Alert and Oriented x 3, NL Muscle Strength and Tone Nutrition: Taking PO's Result Diagrams: 08/11/17 10:30 08/04/17 05:00 Assess/Plan/Problems-Billing Assessment: Mr. Concepcion is an 87yo male with a PMH significant for CVAx3, aortic valve endocarditis, mitral valve replacement, afib, nephrolithiasis with pyelonephritis and anemia who is admitted swing for 42 total days of IV antibiotics which was complicated by a stroke possibly related to his endocarditis. - Patient Problems (1) Bacteremia due to Enterococcus Comment: - Continue plan for ampicillin Q6h and ceftriaxone Q12 [address] Abdalla for enterococcus bacteremia and AV endocarditis, last day 08/24/17. - CBC, CRP and BMP pending for AM. - Repeat JUAN during his last week of Abx therapy. - Likely cause of embolic stroke. No brain abscess identified. (2) Endocarditis Comment: - Aortic valve vegetation seen on JUAN 07/14/17 - Family and patient decided not to pursue valve replacement - Continue conservative mgmt with atbx (3) Left upper extremity swelling Comment: - US of upper extremity pending, though DVT less likely as he is on eliquis. - Recommend elevation. 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 - Continue BG AC with Lispro SSI coverage with meals. (7) Hypothyroid Comment: - Continue synthroid daily (8) Anemia Comment: - Stable around 10. - Continue iron supplementation. (9) Full code status Comment: (10) DVT prophylaxis Comment: - On Eliquis (11) DNR (do not resuscitate) Status: Acute Comment: Status and Disposition: Remain on swing status, last day of abx 08/24/17
[2017-08-16] MEDS: Apixaban* 2.5 MG TAB PO SCH ×2 (09:43→22:09)
[2017-08-16] MEDS: Cyanocobalamin TAB* 500 MCG PO SCH (09:43)
[2017-08-16] MEDS: Ascorbic Acid TAB* 500 MG PO SCH (09:44)
[2017-08-16] MEDS: Gabapentin CAP(*) 100 MG PO SCH ×2 (09:44→22:09)
[2017-08-16] MEDS: Digoxin TAB* 0.125 MG PO SCH (09:44)
[2017-08-16] MEDS: Folic Acid TAB* 1 MG PO SCH (09:44)
[2017-08-16] MEDS: Ferrous Sulfate TAB* 325 MG PO SCH (09:44)
[2017-08-16] MEDS: Levothyroxine TAB* 100 MCG TAB PO SCH (09:44)
[2017-08-16] MEDS: Multivitamins/Minerals TAB PO SCH (09:44)
[2017-08-16] MEDS: Cetirizine* 10 MG TAB PO SCH (09:44)
[2017-08-16] MEDS: metFORMIN* 500 MG TAB PO SCH (09:44)
[2017-08-16] MEDS: Metoprolol Succinate XL TAB* 25 MG PO SCH (09:45)
[2017-08-16] MEDS: Atorvastatin* 40 MG TAB PO SCH (22:09)
[2017-08-16] MEDS: CMCS: Melatonin (NF) 3 MG TAB PO SCH (22:09)
[2017-08-17] MEDS: Omeprazole CAP* 20 MG PO SCH (04:44)
[2017-08-17 05:21] LABS: EGFR Non-African American 62.2 (>60)
[2017-08-17] MEDS: Ampicillin IV* 2 GM in NS 0.9% 100 ML* 100 ML IVPB SCH ×3 (05:59→18:05)
[2017-08-17 06:21] LABS: Hematocrit 29 % (42-52); Hemoglobin 9.6 g/dl (14.0-18.0); Mean Corpuscular HGB Conc 33 g/dl (31-36); Mean Corpuscular Hemoglobin 33 pg (27-31); Mean Corpuscular Volume 100 fL (80-94); Mean Platelet Volume 10 um3 (7.4-10.4); Platelet Count 217 10^3/ul (150-450); Red Blood Count 2.91 10^6/ul (4.0-5.4); Red Cell Distribution Width 25 % (10.5-15); White Blood Count 4.7 10^3/ul (3.5-10.8)
[2017-08-17 08:43] LABS: Monocytes % 3 % (0-7)
[2017-08-17] MEDS: Insulin LISPRO* 1 UNITS UNIT SUBCUT SCH ×3 (09:02→16:23)
[2017-08-17] MEDS: Digoxin TAB* 0.125 MG PO SCH (09:14)
[2017-08-17] MEDS: Folic Acid TAB* 1 MG PO SCH (09:15)
[2017-08-17] MEDS: metFORMIN* 500 MG TAB PO SCH (09:15)
[2017-08-17] MEDS: Levothyroxine TAB* 100 MCG TAB PO SCH (09:15)
[2017-08-17] MEDS: Ascorbic Acid TAB* 500 MG PO SCH (09:15)
[2017-08-17] MEDS: Apixaban* 2.5 MG TAB PO SCH ×2 (09:15→21:05)
[2017-08-17] MEDS: Cyanocobalamin TAB* 500 MCG PO SCH (09:15)
[2017-08-17] MEDS: Metoprolol Succinate XL TAB* 25 MG PO SCH (09:16)
[2017-08-17] MEDS: Ferrous Sulfate TAB* 325 MG PO SCH (09:16)
[2017-08-17] MEDS: Gabapentin CAP(*) 100 MG PO SCH ×2 (09:16→21:04)
[2017-08-17] MEDS: Multivitamins/Minerals TAB PO SCH (09:16)
[2017-08-17] MEDS: Cetirizine* 10 MG TAB PO SCH (09:17)
[2017-08-17] MEDS ORDERED: Metoprolol Tartrate IV* 1 MG/ML 5 ML VIAL IV PRN ×2 (10:24→10:43)
[2017-08-17] MEDS ORDERED: Metoprolol Tartrate IV* 1 MG/ML 5 ML VIAL ONE (10:27)
[2017-08-17] MEDS ORDERED: Metoprolol Succinate XL TAB* 25 MG PO ONE (10:42)
--- NOTE | 2017-08-17 12:55 | PN ---
Subjective Date of Service: 08/17/17 Interval History: Patient had no complaints this morning. Was somewhat confused with word-finding difficulty but this is near patient's baseline per previous discussions with family. Patient denied F/C, N/V, abdominal pain, diarrhea, constipation, CP, SOB , Palpitations, or other pain. Patient found to have HR around 120 to auscultation, asymptomatic. Patient was found to have a HR in the 130s to examination yesterday according to nursing staff. EKG showed RVR in the 150s. Converted with metoprolol tartrate 5mg IVx1 and vagal maneuvers. Family History: Unchanged from Admission Social History: Unchanged from Admission Past Medical History: Unchanged from Admission Objective Active Medications: Acetaminophen (Tylenol Tab*) 650 mg PO Q6H PRN PRN Reason: FEVER/PAIN Apixaban (Eliquis) 2.5 mg PO BID [facility] Last Admin: 08/17/17 09:15 Dose: 2.5 mg Ascorbic Acid (Vitamin C Tab*) 500 mg PO DAILY [facility] Last Admin: 08/17/17 09:15 Dose: 500 mg Atorvastatin Calcium (Lipitor*) 40 mg PO 2100 [facility] Last Admin: 08/16/17 22:09 Dose: Not Given Cetirizine HCl (Zyrtec*) 10 mg PO DAILY [facility] PRN Reason: Protocol Last Admin: 08/17/17 09:17 Dose: 10 mg Cyanocobalamin (Vitamin B12 Tab*) 1,000 mcg PO DAILY [facility] Last Admin: 08/17/17 09:15 Dose: 1,000 mcg Digoxin (Lanoxin Tab*) 0.125 mg PO DAILY [facility] Last Admin: 08/17/17 09:14 Dose: 0.125 mg Ferrous Sulfate (Ferrous Sulfate Tab*) 325 mg PO DAILY [facility] Last Admin: 08/17/17 09:16 Dose: 325 mg Folic Acid (Folvite Tab*) 1 mg PO DAILY [facility] Last Admin: 08/17/17 09:15 Dose: 1 mg Gabapentin (Neurontin Cap(*)) 100 mg PO BID [facility] Last Admin: 08/17/17 09:16 Dose: 100 mg Heparin Sodium (Porcine) (Heparin Flush Picc/Ml/Cvc(*)) 1 ml FLUSH 0600,1800 [facility] PRN Reason: Protocol Last Admin: 08/17/17 04:49 Dose: 1 ml Ceftriaxone Sodium 2 gm/ (Sodium Chloride) 100 mls @ 200 mls/hr IVPB Q12H [facility] Last Admin: 08/17/17 11:09 Dose: 200 mls/hr Ampicillin Sodium 2 gm/ Sodium (Chloride) 100 mls @ 200 mls/hr IVPB Q6HR [facility] Last Admin: 08/17/17 12:05 Dose: 200 mls/hr Insulin Human Lispro (Humalog*) 0 units SUBCUT AC [facility] PRN Reason: Protocol Last Admin: 08/17/17 12:09 Dose: 1 unit Levothyroxine Sodium (Synthroid Tab*) 100 mcg PO DAILY [facility] Last Admin: 08/17/17 09:15 Dose: 100 mcg Melatonin (Melatonin (Nf)) 3 mg PO BEDTIME [facility] Last Admin: 08/16/17 22:09 Dose: Not Given Metformin HCl (Glucophage*) 500 mg PO DAILY [facility] Last Admin: 08/17/17 09:15 Dose: 500 mg Metoprolol Succinate (Toprol Xl Tab*) 50 mg PO DAILY [facility] Metoprolol Tartrate (Lopressor Iv*) 5 mg IV Q5M PRN PRN Reason: BLOOD PRESSURE Last Admin: 08/17/17 10:31 Dose: 5 mg Metoprolol Tartrate (Lopressor Iv*) 5 mg IV Q6H PRN PRN Reason: HEART RATE/PULSE GREATER THAN: Multivitamins/Minerals (Theragran/Minerals Tab*) 1 tab PO DAILY [facility] Last Admin: 08/17/17 09:16 Dose: 1 tab Omeprazole (Prilosec Cap*) 20 mg PO 0600 [facility] Last Admin: 08/17/17 04:44 Dose: 20 mg Polyvinyl Alcohol (Polyvinyl Alcohol 1.4% Opth*) 1 drop BOTH EYES TID PRN PRN Reason: DRY EYE Last Admin: 08/15/17 07:34 Dose: 1 drop Vital Signs - 8 hr 08/17/17 08/17/17 08/17/17 07:22 07:40 08:00 Temperature 97.4 F Pulse Rate 90 88 Respiratory 18 18 20 Rate Blood Pressure 146/67 (mmHg) O2 Sat by Pulse 100 Oximetry 08/17/17 08/17/17 08/17/17 08:44 09:14 09:16 Temperature Pulse Rate 90 90 Respiratory 18 Rate Blood Pressure 122/78 (mmHg) O2 Sat by Pulse Oximetry 08/17/17 12:04 Temperature Pulse Rate Respiratory 18 Rate Blood Pressure (mmHg) O2 Sat by Pulse Oximetry Oxygen Devices in Use Now: None Appearance: Patient is an 87yo male who appears stated age and is sitting in the bed in NAD. Eyes: No Scleral Icterus, PERRLA Ears/Nose/Mouth/Throat: NL Teeth, Lips, Gums, Clear Oropharnyx, Mucous Membranes Moist Neck: NL Appearance and Movements; NL JVP, Trachea Midline Respiratory: Symmetrical Chest Expansion and Respiratory Effort, Clear to Auscultation Cardiovascular: NL Sounds; No Murmurs; No JVD, No Edema, - - Tachycardic at 120. Abdominal: NL Sounds; No Tenderness; No Distention, No Hepatosplenomegaly Lymphatic: No Cervical Adenopathy Extremities: No Edema, No Clubbing, Cyanosis Skin: No Nodules or Sclerosis, - - Purpuric rashes on arms, stable from previous exams. Neurological: Alert and Oriented x 3, NL Sensation, NL Muscle Strength and Tone , - - CN II-XII intact. Result Diagrams: 08/17/17 05:50 08/17/17 04:50 Assess/Plan/Problems-Billing Assessment: Mr. Concepcion is an 87yo male with a PMH significant for CVAx3, aortic valve endocarditis, mitral valve replacement, afib, nephrolithiasis with pyelonephritis and anemia who is admitted swing for 42 total days of IV antibiotics which was complicated by a stroke possibly related to his endocarditis. - Patient Problems (1) Bacteremia due to Enterococcus Current Visit: No Status: Acute Code(s): R78.81 - BACTEREMIA; B95.2 - ENTEROCOCCUS THE CAUSE OF DISEASES CLASSIFIED ELSEWHERE SNOMED Code(s): 539083064609 Comment: Continue plan for ampicillin Q6h and ceftriaxone Q12 [address] Abdalla for enterococcus bacteremia and AV endocarditis, last day 08/24/17. CBC, CRP and BMP weekly Repeat JUAN during his last week of Abx therapy. Likely cause of embolic stroke. No brain abscess identified on MRI. 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 (4) Anemia Current Visit: No Status: Acute Code(s): D64.9 - ANEMIA, UNSPECIFIED SNOMED Code(s): 367187114 Comment: Stable around 10. Continue iron supplementation. (5) Atrial fibrillation Current Visit: No Status: Acute Code(s): I48.91 - UNSPECIFIED ATRIAL FIBRILLATION SNOMED Code(s): 97471938 Comment: Had episode of RVR in the 150s this AM. Converted to NSR with metoprolol and vagal maneuvers. Telemetry monitoring restarted. Increased Metoprolol and digoxin for rate control Continue Eliquis (6) Diabetes Current Visit: No Status: Acute Code(s): E11.9 - TYPE 2 DIABETES MELLITUS WITHOUT COMPLICATIONS SNOMED Code(s): 79087997 Comment: BGs well controlled. Continue BG AC with Lispro SSI coverage with meals. (7) Hypothyroid Current Visit: No Status: Acute Code(s): E03.9 - HYPOTHYROIDISM, UNSPECIFIED SNOMED Code(s): 59873048 Comment: Continue synthroid daily (8) DNR (do not resuscitate) Current Visit: No Status: Acute Comment: (9) DVT prophylaxis Current Visit: No Status: Acute Code(s): MPS5429 - SNOMED Code(s): 972227936 Comment: On Eliquis Status and Disposition: Remain on swing status, last day of abx 08/24/17
[2017-08-17] MEDS: Artificial Tears* 15 ML BTL BOTH EYES PRN ×2 (13:52→21:06)
[2017-08-17] MEDS: Atorvastatin* 40 MG TAB PO SCH (21:05)
[2017-08-17] MEDS: CMCS: Melatonin (NF) 3 MG TAB PO SCH (21:05)
[2017-08-18] MEDS: Ampicillin IV* 2 GM in NS 0.9% 100 ML* 100 ML IVPB SCH ×4 (00:02→18:19)
[2017-08-18] MEDS: Omeprazole CAP* 20 MG PO SCH (06:28)
[2017-08-18] MEDS: Insulin LISPRO* 1 UNITS UNIT SUBCUT SCH ×3 (08:02→17:37)
[2017-08-18] MEDS: Digoxin TAB* 0.125 MG PO SCH (10:26)
[2017-08-18] MEDS: Metoprolol Succinate XL TAB* 25 MG PO SCH (10:26)
[2017-08-18] MEDS: Levothyroxine TAB* 100 MCG TAB PO SCH (10:26)
[2017-08-18] MEDS: Apixaban* 2.5 MG TAB PO SCH ×2 (10:26→20:59)
[2017-08-18] MEDS: Cetirizine* 10 MG TAB PO SCH (10:26)
[2017-08-18] MEDS: Multivitamins/Minerals TAB PO SCH (10:26)
[2017-08-18] MEDS: Ascorbic Acid TAB* 500 MG PO SCH (10:27)
[2017-08-18] MEDS: Gabapentin CAP(*) 100 MG PO SCH ×2 (10:27→20:59)
[2017-08-18] MEDS: Cyanocobalamin TAB* 500 MCG PO SCH (10:27)
[2017-08-18] MEDS: metFORMIN* 500 MG TAB PO SCH (10:27)
[2017-08-18] MEDS: Folic Acid TAB* 1 MG PO SCH (10:27)
[2017-08-18] MEDS: Artificial Tears* 15 ML BTL BOTH EYES PRN (10:28)
[2017-08-18] MEDS: cefTRIAXone(*) 2 GM in NS 0.9% 50 ML* 50 ML IVPB SCH (20:53)
[2017-08-18] MEDS: CMCS: Melatonin (NF) 3 MG TAB PO SCH (20:59)
[2017-08-18] MEDS: Atorvastatin* 40 MG TAB PO SCH (20:59)
[2017-08-19] MEDS: Ampicillin IV* 2 GM in NS 0.9% 100 ML* 100 ML IVPB SCH ×4 (00:16→17:44)
[2017-08-19] MEDS: Omeprazole CAP* 20 MG PO SCH (05:00)
[2017-08-19] MEDS: Apixaban* 2.5 MG TAB PO SCH ×2 (09:12→20:27)
[2017-08-19] MEDS: Cetirizine* 10 MG TAB PO SCH (09:13)
[2017-08-19] MEDS: Gabapentin CAP(*) 100 MG PO SCH ×2 (09:13→20:27)
[2017-08-19] MEDS: Multivitamins/Minerals TAB PO SCH (09:13)
[2017-08-19] MEDS: Metoprolol Succinate XL TAB* 25 MG PO SCH (09:13)
[2017-08-19] MEDS: Ascorbic Acid TAB* 500 MG PO SCH (09:14)
[2017-08-19] MEDS: Ferrous Sulfate TAB* 325 MG PO SCH (09:14)
[2017-08-19] MEDS: metFORMIN* 500 MG TAB PO SCH (09:14)
[2017-08-19] MEDS: Folic Acid TAB* 1 MG PO SCH (09:14)
[2017-08-19] MEDS: Digoxin TAB* 0.125 MG PO SCH (09:14)
[2017-08-19] MEDS: Levothyroxine TAB* 100 MCG TAB PO SCH (09:14)
[2017-08-19] MEDS: Cyanocobalamin TAB* 500 MCG PO SCH (09:14)
[2017-08-19] MEDS: Insulin LISPRO* 1 UNITS UNIT SUBCUT SCH ×3 (09:19→17:27)
[2017-08-19] MEDS: cefTRIAXone(*) 2 GM in NS 0.9% 50 ML* 50 ML IVPB SCH ×2 (09:29→20:30)
[2017-08-19] MEDS: Artificial Tears* 15 ML BTL BOTH EYES PRN (09:31)
--- NOTE | 2017-08-19 14:42 | RAD ---
HISTORY: Swelling, PICC line COMPARISONS: None relevant TECHNIQUE: Multiple transverse and longitudinal ultrasound images were obtained of the right and left upper extremities from the level of the internal jugular vein inferiorly through to the infra-cubital veins using grayscale, color Doppler, and spectral Doppler imaging with and without compression and with augmentation. Comparison images were obtained of the contralateral internal jugular vein and subclavian vein. FINDINGS: Evaluation of the mid right basilic vein and brachial vein is limited due to the presence of bandage. Evaluation of the left middle fossa is limited by soft tissue swelling. VEINS: The venous system of the right and left upper extremities is compressible throughout its course, with normal flow on color Doppler imaging and normal response to augmentation on spectral Doppler imaging. SOFT TISSUES: Unremarkable. OTHER FINDINGS: A PICC line is noted in the right basilic vein. The vessel is diminutive, though flow is noted around the PICC line. IMPRESSION: LEFT-SIDED PICC LINE. NO LEFT OR RIGHT UPPER EXTREMITY DEEP VEIN THROMBOSIS.
[2017-08-19] MEDS: CMCS: Melatonin (NF) 3 MG TAB PO SCH (20:27)
[2017-08-19] MEDS: Atorvastatin* 40 MG TAB PO SCH (20:27)
[2017-08-20] MEDS: Ampicillin IV* 2 GM in NS 0.9% 100 ML* 100 ML IVPB SCH ×4 (00:14→17:56)
[2017-08-20] MEDS: Omeprazole CAP* 20 MG PO SCH (05:55)
[2017-08-20] MEDS: Cyanocobalamin TAB* 500 MCG PO SCH (08:17)
[2017-08-20] MEDS: Folic Acid TAB* 1 MG PO SCH (08:17)
[2017-08-20] MEDS: metFORMIN* 500 MG TAB PO SCH (08:18)
[2017-08-20] MEDS: Multivitamins/Minerals TAB PO SCH (08:18)
[2017-08-20] MEDS: Cetirizine* 10 MG TAB PO SCH (08:18)
[2017-08-20] MEDS: Metoprolol Succinate XL TAB* 25 MG PO SCH (08:18)
[2017-08-20] MEDS: Ascorbic Acid TAB* 500 MG PO SCH (08:19)
[2017-08-20] MEDS: Digoxin TAB* 0.125 MG PO SCH (08:19)
[2017-08-20] MEDS: Gabapentin CAP(*) 100 MG PO SCH ×2 (08:19→23:23)
[2017-08-20] MEDS: Levothyroxine TAB* 100 MCG TAB PO SCH (08:20)
[2017-08-20] MEDS: Insulin LISPRO* 1 UNITS UNIT SUBCUT SCH ×3 (08:21→17:58)
[2017-08-20] MEDS: cefTRIAXone(*) 2 GM in NS 0.9% 50 ML* 50 ML IVPB SCH ×2 (08:22→23:23)
[2017-08-20] MEDS: Apixaban* 2.5 MG TAB PO SCH ×2 (08:27→23:23)
--- NOTE | 2017-08-20 11:56 | PN ---
Subjective Date of Service: 08/20/17 Interval History: Patient is in a good mood, walking around the unit. Patient has no concerns. Denies F/C, N/V, abdominal pain, diarrhea, CP, SOB, Dizziness, Palpitations, or other pain. Patient has questions about the swelling in his hands but his questions were answered to his satisfaction. Family History: Unchanged from Admission Social History: Unchanged from Admission Past Medical History: Unchanged from Admission Objective Active Medications: Acetaminophen (Tylenol Tab*) 650 mg PO Q6H PRN PRN Reason: FEVER/PAIN Apixaban (Eliquis) 2.5 mg PO BID [facility] Last Admin: 08/20/17 08:27 Dose: 2.5 mg Ascorbic Acid (Vitamin C Tab*) 500 mg PO DAILY [facility]S [facility] Last Admin: 08/20/17 08:19 Dose: 500 mg Atorvastatin Calcium (Lipitor*) 40 mg PO 2100 [facility]S [facility] Last Admin: 08/19/17 20:27 Dose: 40 mg Cetirizine HCl (Zyrtec*) 10 mg PO DAILY [facility] 234 [facility]S [facility] PRN Reason: Protocol Last Admin: 08/20/17 08:18 Dose: 10 mg Cyanocobalamin (Vitamin B12 Tab*) 1,000 mcg PO DAILY [facility] 234 B[facility]S [facility] Last Admin: 08/20/17 08:17 Dose: 1,000 mcg Digoxin (Lanoxin Tab*) 0.125 mg PO DAILY [facility] 234 B[facility]S [facility] Last Admin: 08/20/17 08:19 Dose: 0.125 mg Ferrous Sulfate (Ferrous Sulfate Tab*) 325 mg PO EVERY OTHER DAY [facility]CLUDE 234 BEDS [facility] Last Admin: 08/19/17 09:14 Dose: 325 mg Folic Acid (Folvite Tab*) 1 mg PO DAILY [facility] 234 [facility]S [facility] Last Admin: 08/20/17 08:17 Dose: 1 mg Gabapentin (Neurontin Cap(*)) 100 mg PO BID [facility] 234 [facility]S [facility] Last Admin: 08/20/17 08:19 Dose: 100 mg Heparin Sodium (Porcine) (Heparin Flush Picc/Ml/Cvc(*)) 1 ml FLUSH 0600,1800 [facility]S [facility] PRN Reason: Protocol Last Admin: 08/20/17 05:58 Dose: Not Given Ampicillin Sodium 2 gm/ Sodium (Chloride) 100 mls @ 200 mls/hr IVPB Q6HR [facility] 234 B[facility]S [facility] Last Admin: 08/20/17 05:53 Dose: 200 mls/hr Ceftriaxone Sodium 2 gm/ (Sodium Chloride) 50 mls @ 100 mls/hr IVPB Q12HR [facility] 234 [facility]S [facility] Last Admin: 08/20/17 08:22 Dose: 100 mls/hr Insulin Human Lispro (Humalog*) 0 units SUBCUT AC [facility] 234 B[facility]S [facility] PRN Reason: Protocol Last Admin: 08/20/17 08:21 Dose: Not Given Levothyroxine Sodium (Synthroid Tab*) 100 mcg PO DAILY [facility] 234 B[facility]S [facility] Last Admin: 08/20/17 08:20 Dose: 100 mcg Melatonin (Melatonin (Nf)) 3 mg PO BEDTIME [facility] 234 [facility]S [facility] Last Admin: 08/19/17 20:27 Dose: 3 mg Metformin HCl (Glucophage*) 500 mg PO DAILY [facility] 234 B[facility]S [facility] Last Admin: 08/20/17 08:18 Dose: 500 mg Metoprolol Succinate (Toprol Xl Tab*) 50 mg PO DAILY [facility] 234 B[facility]S [facility] Last Admin: 08/20/17 08:18 Dose: 50 mg Metoprolol Tartrate (Lopressor Iv*) 5 mg IV Q6H PRN PRN Reason: HEART RATE/PULSE GREATER THAN: Multivitamins/Minerals (Theragran/Minerals Tab*) 1 tab PO DAILY [facility] 234 [facility]S [facility] Last Admin: 08/20/17 08:18 Dose: 1 tab Omeprazole (Prilosec Cap*) 20 mg PO 0600 [facility] 234 [facility]S [facility] Last Admin: 08/20/17 05:55 Dose: 20 mg Polyvinyl Alcohol (Polyvinyl Alcohol 1.4% Opth*) 1 drop BOTH EYES TID PRN PRN Reason: DRY EYE Last Admin: 08/19/17 09:31 Dose: 1 drop Vital Signs - 8 hr 08/20/17 08/20/17 08/20/17 07:15 07:52 08:19 Temperature 97.8 F Pulse Rate 82 73 Respiratory 18 12 Rate Blood Pressure 131/55 (mmHg) O2 Sat by Pulse 100 Oximetry 08/20/17 11:15 Temperature 98.2 F Pulse Rate 75 Respiratory 18 Rate Blood Pressure 119/52 (mmHg) O2 Sat by Pulse 100 Oximetry Oxygen Devices in Use Now: None Appearance: Patient is an 87yo male who appears stated age and is sitting in the chair in NAD. Eyes: No Scleral Icterus, PERRLA Ears/Nose/Mouth/Throat: NL Teeth, Lips, Gums, Clear Oropharnyx, Mucous Membranes Moist Neck: NL Appearance and Movements; NL JVP, Trachea Midline Respiratory: Symmetrical Chest Expansion and Respiratory Effort, Clear to Auscultation Cardiovascular: NL Sounds; No Murmurs; No JVD, RRR, - - 1+ non-pitting edema in B/L UE. Abdominal: NL Sounds; No Tenderness; No Distention, No Hepatosplenomegaly Skin: - - Purpura on arms. Neurological: Alert and Oriented x 3, NL Sensation, - - CN II-XII intact. Result Diagrams: 08/17/17 05:50 08/17/17 04:50 Assess/Plan/Problems-Billing Assessment: Mr. Concepcion is an 87yo male with a PMH significant for CVAx3, aortic valve endocarditis, mitral valve replacement, afib, nephrolithiasis with pyelonephritis and anemia who is admitted swing for 42 total days of IV antibiotics which was complicated by a stroke possibly related to his endocarditis. - Patient Problems (1) Bacteremia due to Enterococcus Current Visit: No Status: Acute Code(s): R78.81 - BACTEREMIA; B95.2 - ENTEROCOCCUS THE CAUSE OF DISEASES CLASSIFIED ELSEWHERE SNOMED Code(s): 463050151903 Comment: Continue plan for ampicillin Q6h and ceftriaxone Q12 [address] Abdalla for enterococcus bacteremia and AV endocarditis, last day 08/24/17. CBC, CRP and BMP weekly Repeat JUAN during his last week of Abx therapy. Ordered for 08/22. Likely cause of embolic stroke. No brain abscess identified on MRI. 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 (4) Left upper extremity swelling Current Visit: Yes Status: Acute Code(s): M79.89 - OTHER SPECIFIED SOFT TISSUE DISORDERS SNOMED Code(s): 097640991 Comment: US of B/L UE negative for clot. Recommended elevation. (5) Anemia Current Visit: No Status: Acute Code(s): D64.9 - ANEMIA, UNSPECIFIED SNOMED Code(s): 430803730 Comment: Stable around 10. Continue iron supplementation. (6) Atrial fibrillation Current Visit: No Status: Acute Code(s): I48.91 - UNSPECIFIED ATRIAL FIBRILLATION SNOMED Code(s): 41061809 Comment: Had episode of RVR in the 150s this AM. Converted to NSR with metoprolol and vagal maneuvers. Monitored by frequent VS. Was asymptomatic. Increased Metoprolol and digoxin for rate control Continue Eliquis (7) Diabetes Current Visit: No Status: Acute Code(s): E11.9 - TYPE 2 DIABETES MELLITUS WITHOUT COMPLICATIONS SNOMED Code(s): 30584503 Comment: BGs well controlled. Continue BG AC with Lispro SSI coverage with meals. (8) Hypothyroid Current Visit: No Status: Acute Code(s): E03.9 - HYPOTHYROIDISM, UNSPECIFIED SNOMED Code(s): 68747871 Comment: Continue synthroid daily (9) DNR (do not resuscitate) Current Visit: No Status: Acute Comment: (10) DVT prophylaxis Current Visit: No Status: Acute Code(s): WCU1297 - SNOMED Code(s): 711534381 Comment: On Eliquis Status and Disposition: Remain on swing status, last day of abx 08/24/17
[2017-08-20] MEDS: Atorvastatin* 40 MG TAB PO SCH (23:23)
[2017-08-20] MEDS: CMCS: Melatonin (NF) 3 MG TAB PO SCH (23:23)
[2017-08-21] MEDS: Ampicillin IV* 2 GM in NS 0.9% 100 ML* 100 ML IVPB SCH ×5 (00:25→23:33)
[2017-08-21] MEDS: Omeprazole CAP* 20 MG PO SCH (06:09)
[2017-08-21] MEDS: Insulin LISPRO* 1 UNITS UNIT SUBCUT SCH ×3 (08:55→17:05)
[2017-08-21] MEDS: cefTRIAXone(*) 2 GM in NS 0.9% 50 ML* 50 ML IVPB SCH ×2 (09:11→20:03)
[2017-08-21] MEDS: Cyanocobalamin TAB* 500 MCG PO SCH (09:16)
[2017-08-21] MEDS: Gabapentin CAP(*) 100 MG PO SCH ×2 (09:16→20:03)
[2017-08-21] MEDS: Ascorbic Acid TAB* 500 MG PO SCH (09:16)
[2017-08-21] MEDS: Folic Acid TAB* 1 MG PO SCH (09:17)
[2017-08-21] MEDS: Digoxin TAB* 0.125 MG PO SCH (09:17)
[2017-08-21] MEDS: Cetirizine* 10 MG TAB PO SCH (09:17)
[2017-08-21] MEDS: metFORMIN* 500 MG TAB PO SCH (09:19)
[2017-08-21] MEDS: Metoprolol Succinate XL TAB* 25 MG PO SCH (09:19)
[2017-08-21] MEDS: Ferrous Sulfate TAB* 325 MG PO SCH (09:20)
[2017-08-21] MEDS: Apixaban* 2.5 MG TAB PO SCH ×2 (09:20→20:03)
[2017-08-21] MEDS: Multivitamins/Minerals TAB PO SCH (09:20)
[2017-08-21] MEDS: Levothyroxine TAB* 100 MCG TAB PO SCH (09:20)
[2017-08-21] MEDS: Artificial Tears* 15 ML BTL BOTH EYES PRN ×3 (10:32→20:04)
[2017-08-21] MEDS: CMCS: Melatonin (NF) 3 MG TAB PO SCH (20:03)
[2017-08-21] MEDS: Atorvastatin* 40 MG TAB PO SCH (20:03)
[2017-08-22] MEDS: Ampicillin IV* 2 GM in NS 0.9% 100 ML* 100 ML IVPB SCH (06:02)
[2017-08-22] MEDS: Omeprazole CAP* 20 MG PO SCH (06:06)
[2017-08-22] MEDS: Artificial Tears* 15 ML BTL BOTH EYES PRN (09:56)
[2017-08-22] MEDS: cefTRIAXone(*) 2 GM in NS 0.9% 50 ML* 50 ML IVPB SCH (10:09)
[2017-08-22] MEDS: Insulin LISPRO* 1 UNITS UNIT SUBCUT SCH ×3 (10:22→17:56)
[2017-08-22] MEDS ORDERED: Naloxone* 0.4 MG/ML 1 ML VIAL ONE (14:43)
[2017-08-22] MEDS ORDERED: fentaNYL* 50 MCG/ML 2 ML VIAL (100 MCG VIAL) ONE (14:43)
[2017-08-22] MEDS ORDERED: Midazolam* 1 MG/ML 10 ML VIAL (10 MG) ONE (14:43)
[2017-08-22] MEDS ORDERED: Lidocaine 2% VISCOUS* 15 ML UDC ONE (14:44)
[2017-08-22] MEDS ORDERED: Flumazenil* 0.1 MG/ML 5 ML MDV ONE (14:44)
--- NOTE | 2017-08-22 16:28 | TEE ---
Patient: DEEPAK DOWNEY 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 BP: 124/57 HR: 91 Rhythm: NSR Findings History: CAD, CABG, HTN, DM, CVA, TIA, s/p MV bioprosthetic replacement. Technical Comments: The study quality is good. Left Ventricle: The left ventricular chamber size is normal. Mild global hypokinesis of the left ventricle is observed. There is mildly decreased left ventricular systolic function. The estimated ejection fraction is 45-50%. Left Atrium: The left atrium is mildly dilated. The left atrial appendage velocity is normal. No thrombus is visualized within the left atrium. There is no thrombus visualized in the left atrial appendage. Right Ventricle: The right ventricular cavity size is normal. The right ventricular global systolic function is mildly reduced. Right Atrium: The right atrial cavity size is normal. Interatrial septum appears intact without evidence of shunting. A bubble study was not performed due to a prior negative bubble study result during a transesophageal echocardiogram on 02/25/2016. There is no patent foramen ovale visualized. A patent foramen ovale is not demonstrated by color Doppler. Aortic Valve: The aortic valve is trileaflet. The aortic valve leaflets are mildly thickened.No obvious vegetations There is a trace of aortic regurgitation. There is no evidence of aortic stenosis. Mitral Valve: There is mild mitral regurgitation. There is no evidence of mitral stenosis. No vegetation is observed on the mitral valve. A bioprosthetic mitral valve is present. Tricuspid Valve: The tricuspid valve leaflets are normal. There is mild tricuspid regurgitation. The right ventricular systolic pressure is estimated at 39 mmHg. There is evidence of mild pulmonary hypertension. There is no tricuspid stenosis. No vegetation is observed on the tricuspid valve. Pulmonic Valve: The pulmonic valve appears normal. There is a trace pulmonic regurgitation. There is no pulmonic stenosis. No vegetation is observed on the pulmonic valve. Pericardium: There is no significant pericardial effusion. Aorta: There is no dilatation of the ascending aorta. The aortic root is normal in size. There is plaque visualized in the transverse aorta. There is plaque visualized in the descending aorta. There is mild atherosclerotic plaque in the visualized segments of the aorta. Pulmonary Artery: The main pulmonary artery appears normal. Venous: The bicaval view was obtained and appears normal. The pulmonary veins appear normal. 1 of 4 visualized. The pulmonary veins appear normal in size. JUAN Procedures: All standard views were attempted within the limitations of patient tolerance and safety. Transgastric view was not obtained. History and physical as well as labs were reviewed. The patient was in a fasting state. Risks and benefits of the procedure, including alternatives, were discussed and written informed consent was obtained. The patient and/or their health care civil rights representative expressed understanding of the procedure, risks and benefits. Baseline and continuous monitoring of blood pressure, heart rate, pulse oximetry and heart rhythm was performed throughout the procedure. The appropriate time-out procedure was performed as per [facility] protocol. The patient was placed in the left lateral decubitus position. The patient's posterior pharynx was anesthetized with 20ml of 2% viscous lidocaine. The patient received IV Midazolam with a total dose of 3 mg. The patient received IV Fentanyl with a total dose of 25 mcg. An oral bite block was inserted for protection of oral dentition. The multiplane transesophageal echocardiogram probe was inserted through the posterior oropharynx and advanced into the esophagus without difficulty. Multiple 2D images were obtained of the heart and its related structures. Color flow Doppler was used for evaluation. Spectral Doppler was also used. The atrial septum was interrogated with color flow Doppler. At the conclusion of the procedure the probe was removed with continuous suction without complications. The patient tolerated the procedure with no apparent complications. Conclusions Mild global hypokinesis of the left ventricle is observed. There is mildly decreased left ventricular systolic function. The estimated ejection fraction is 45-50%. No thrombus is visualized within the left atrium. Interatrial septum appears intact without evidence of shunting. A bubble study was not performed due to a prior negative bubble study result during a transesophageal echocardiogram on 02/25/2016. The aortic valve leaflets are mildly thickened.No obvious vegetations There is a trace of aortic regurgitation. There is no evidence of aortic stenosis. A bioprosthetic mitral valve is present. No vegetation is observed on the mitral valve. There is no evidence of mitral stenosis. There is mild mitral regurgitation. There is mild tricuspid regurgitation. The right ventricular systolic pressure is estimated at 39 mmHg. No vegetation is observed on the tricuspid valve. There is no significant pericardial effusion. There is plaque visualized in the descending aorta. There is mild atherosclerotic plaque in the visualized segments of the aorta. Compared to JUAN study of 07/14/17, the LV function is the same. The thickening and vegetation fo the aortic valve is less obvious. No clear vegetations Measurements Name Value Normal Range Aortic Annulus 1.8 cm (1.4 - 2.6) Ao root diameter (2D) 3.2 cm (2.1 - 3.5) Ascending Ao 3.4 cm (2.1 - 3.4) Name Value Normal Range MV E-wave Vmax 1.58 m/sec - MV deceleration time 237.8 msec - MV A-wave Vmax 1.77 m/sec - MV E:A ratio 0.89 ratio - Name Value Normal Range MV Vmax 2.11 m/sec - MV VTI 49.98 cm - MV peak gradient 17.91 mmHg - MV mean gradient 8.36 mmHg - MV PHT 58 msec - MVA (PHT) 3.79 cm2 - Name Value Normal Range TR Vmax 2.8 m/sec - TR peak gradient 31 mmHg - RAP 8 mmHg - RVSP 39 mmHg -
[2017-08-22] MEDS: Cetirizine* 10 MG TAB PO SCH (17:49)
[2017-08-22] MEDS: Ascorbic Acid TAB* 500 MG PO SCH (17:49)
[2017-08-22] MEDS: Apixaban* 2.5 MG TAB PO SCH ×2 (17:49→20:32)
[2017-08-22] MEDS: Cyanocobalamin TAB* 500 MCG PO SCH (17:49)
[2017-08-22] MEDS: Digoxin TAB* 0.125 MG PO SCH (17:53)
[2017-08-22] MEDS: Folic Acid TAB* 1 MG PO SCH (17:54)
[2017-08-22] MEDS: Levothyroxine TAB* 100 MCG TAB PO SCH (17:54)
[2017-08-22] MEDS: metFORMIN* 500 MG TAB PO SCH (17:54)
[2017-08-22] MEDS: Multivitamins/Minerals TAB PO SCH (17:54)
[2017-08-22] MEDS: Gabapentin CAP(*) 100 MG PO SCH ×2 (17:54→20:31)
[2017-08-22] MEDS: Metoprolol Succinate XL TAB* 25 MG PO SCH (18:09)
[2017-08-22] MEDS: CEFTRIAXONE 2000 MG IVPB SCH ×2 (20:30)
[2017-08-22] MEDS: CMCS: Melatonin (NF) 3 MG TAB PO SCH (20:32)
[2017-08-22] MEDS: Atorvastatin* 40 MG TAB PO SCH (20:32)
[2017-08-23] MEDS: Omeprazole CAP* 20 MG PO SCH (06:17)
[2017-08-23] MEDS: CEFTRIAXONE 2000 MG IVPB SCH ×4 (09:41→20:39)
[2017-08-23] MEDS: Gabapentin CAP(*) 100 MG PO SCH ×2 (09:45→20:36)
[2017-08-23] MEDS: Cetirizine* 10 MG TAB PO SCH (09:45)
[2017-08-23] MEDS: Levothyroxine TAB* 100 MCG TAB PO SCH (09:45)
[2017-08-23] MEDS: metFORMIN* 500 MG TAB PO SCH (09:46)
[2017-08-23] MEDS: Metoprolol Succinate XL TAB* 25 MG PO SCH (09:46)
[2017-08-23] MEDS: Ferrous Sulfate TAB* 325 MG PO SCH (09:46)
[2017-08-23] MEDS: Apixaban* 2.5 MG TAB PO SCH ×2 (09:46→20:36)
[2017-08-23] MEDS: Folic Acid TAB* 1 MG PO SCH (09:46)
[2017-08-23] MEDS: Multivitamins/Minerals TAB PO SCH (09:46)
[2017-08-23] MEDS: Ascorbic Acid TAB* 500 MG PO SCH (09:46)
[2017-08-23] MEDS: Cyanocobalamin TAB* 500 MCG PO SCH (09:46)
[2017-08-23] MEDS: Digoxin TAB* 0.125 MG PO SCH (09:47)
[2017-08-23] MEDS: Insulin LISPRO* 1 UNITS UNIT SUBCUT SCH ×3 (09:57→17:01)
[2017-08-23] MEDS: Atorvastatin* 40 MG TAB PO SCH (20:36)
[2017-08-23] MEDS: CMCS: Melatonin (NF) 3 MG TAB PO SCH (20:36)
[2017-08-24] MEDS: Omeprazole CAP* 20 MG PO SCH (05:40)
[2017-08-24 06:15] LABS: EGFR Non-African American 62.8 (>60)
[2017-08-24 06:56] LABS: Hematocrit 28 % (42-52); Hemoglobin 9.3 g/dl (14.0-18.0); Mean Corpuscular HGB Conc 33 g/dl (31-36); Mean Corpuscular Hemoglobin 34 pg (27-31); Mean Corpuscular Volume 101 fL (80-94); Mean Platelet Volume 10 um3 (7.4-10.4); Platelet Count 230 10^3/ul (150-450); Red Blood Count 2.75 10^6/ul (4.0-5.4); Red Cell Distribution Width 25 % (10.5-15); White Blood Count 4.7 10^3/ul (3.5-10.8)
[2017-08-24 07:38] LABS: ABS Basophils 0 10^3/ul (0-0.2); ABS Eosinophils 0.2 10^3/ul (0-0.6); ABS Lymphocytes 1.6 10^3/ul (1.0-4.8); ABS Monocytes 0.2 10^3/ul (0-0.8); ABS Neutrophils 2.7 10^3/ul (1.5-7.7)
[2017-08-24 07:41] LABS: Monocytes % 1 % (0-7)
--- NOTE | 2017-08-24 08:05 | RAD ---
INDICATION: Tuberculosis screening COMPARISON: July 11, 2017 TECHNIQUE: An AP portable view obtained at 0603 hours is submitted. FINDINGS: Bones/Soft Tissues: There are no acute bony findings. There is sternotomy with nodular surgery. There is a right-sided PICC catheter terminating the superior vena cava Cardiomediastinal: The cardiomediastinal silhouette is normal. Lungs: There is minimal left basilar atelectasis.. Pleura: There may be a tiny left-sided effusion. . Other: None IMPRESSION: Postoperative changes. Minimal left basilar abnormalities.
[2017-08-24] MEDS: Insulin LISPRO* 1 UNITS UNIT SUBCUT SCH ×3 (08:24→17:05)
[2017-08-24] MEDS: Apixaban* 2.5 MG TAB PO SCH ×2 (08:34→20:33)
[2017-08-24] MEDS: CEFTRIAXONE 2000 MG IVPB SCH ×2 (08:35)
[2017-08-24] MEDS: Ascorbic Acid TAB* 500 MG PO SCH (08:35)
[2017-08-24] MEDS: Cyanocobalamin TAB* 500 MCG PO SCH (08:36)
[2017-08-24] MEDS: Cetirizine* 10 MG TAB PO SCH (08:36)
[2017-08-24] MEDS: Folic Acid TAB* 1 MG PO SCH (08:37)
[2017-08-24] MEDS: Digoxin TAB* 0.125 MG PO SCH (08:37)
[2017-08-24] MEDS: Levothyroxine TAB* 100 MCG TAB PO SCH (08:38)
[2017-08-24] MEDS: Gabapentin CAP(*) 100 MG PO SCH ×2 (08:38→20:34)
[2017-08-24] MEDS: Metoprolol Succinate XL TAB* 25 MG PO SCH (08:39)
[2017-08-24] MEDS: Multivitamins/Minerals TAB PO SCH (08:39)
[2017-08-24] MEDS: metFORMIN* 500 MG TAB PO SCH (08:39)
--- NOTE | 2017-08-24 09:07 | PN ---
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 Follow up JUAN showedd resolution of vegetation. He feels well, no fever, rash, or diarrhea. R testicle enlarged, not painful, has been that way a few weeks he thinks. No dysuria. Objective: Vital Signs Temp 36.6 C 08/24/17 07:36 Pulse 70 08/24/17 08:37 Resp 16 08/24/17 08:38 BP 147/68 08/24/17 07:36 Pulse Ox 97 08/24/17 07:36 Intake & Output 08/23/17 08/24/17 08/24/17 18:59 06:59 18:59 Intake Total 854 560 Balance 854 560 Intake: IVPB 20 ABX - CEFTRIAXONE 20 Oral 834 560 Other: Estimated Void Medium Medium # Bowel Movements 1 Estimated Stool Amount Medium # Voids 3 2 Gen:awake, no distress Neuro:Awake, Ox3 HEENT:PERRL, MMM; large left conj hemorrhage Heart:RRR no murmur Lungs:CTA BL Abd:+BS NTND soft Skin: no rash MSK: no spine tenderness : right testicle, diffusely enlarged, non tender Laboratory Results - last 24 hr 08/23/17 08/23/17 08/23/17 07:58 11:30 16:44 WBC RBC Hgb Hct MCV MCH MCHC RDW Plt Count MPV Neut % (Auto) Lymph % (Auto) Canadian % (Auto) Eos % (Auto) Baso % (Auto) Absolute Neuts (auto) Absolute Lymphs (auto) Absolute Monos (auto) Absolute Eos (auto) Absolute Basos (auto) Absolute Nucleated RBC Neutrophils % Lymphocytes % Monocytes % Eosinophils % Basophils % Nucleated RBC % Abs Neuts (Manual) Abs Monocytes (Manual) Absolute Eos (Manual) Abs Basophils (Manual) Nucleated RBCs/100 WBC Normal RBC Morphology Macrocytosis Sodium Potassium Chloride Carbon Dioxide Anion Gap BUN Creatinine Est GFR ( Amer) Est GFR (Non-Af Amer) BUN/Creatinine Ratio Glucose POC Glucose (mg/dL) 99 201 H 124 H Calcium C-Reactive Protein 08/24/17 08/24/17 08/24/17 05:43 05:43 08:21 WBC 4.7 RBC 2.75 L Hgb 9.3 L Hct 28 L MCV 101 H MCH 34 H MCHC 33 RDW 25 H Plt Count 230 MPV 10 Neut % (Auto) Not Reportable Lymph % (Auto) Not Reportable Canadian % (Auto) Not Reportable Eos % (Auto) Not Reportable Baso % (Auto) Not Reportable Absolute Neuts (auto) 2.7 Absolute Lymphs (auto) 1.6 Absolute Monos (auto) 0.2 Absolute Eos (auto) 0.2 Absolute Basos (auto) 0 Absolute Nucleated RBC Not Reportable Neutrophils % 59 Lymphocytes % 37 Monocytes % 1 Eosinophils % 3 Basophils % 0 Nucleated RBC % Not Reportable Abs Neuts (Manual) 2.8 Abs Monocytes (Manual) 0 Absolute Eos (Manual) 0.1 Abs Basophils (Manual) 0 Nucleated RBCs/100 WBC 3 H Normal RBC Morphology Not Reportable Macrocytosis 1+ Sodium 138 Potassium 3.8 Chloride 108 Carbon Dioxide 25 Anion Gap 5 BUN 34 H Creatinine 1.11 Est GFR ( Amer) 80.8 Est GFR (Non-Af Amer) 62.8 BUN/Creatinine Ratio 30.6 H Glucose 108 H POC Glucose (mg/dL) 112 H Calcium 9.0 C-Reactive Protein 27.47 H Assessment: 1. Infective endocarditis, aortic valve; resolved by JUAN and completed 6 weeks amp/ceftriaxone. The left conj hemorrhage is very large and I think a complication of anticoagulation as opposed to due to embolic event related to endocarditis 2. 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 s/p MVR 4. enlarged right testicle; infection less likely ?malignancy 5. atrial fibrillation Plan: 1. DC antibiotic, fu with me 2 weeks. Amp before any dental procedures 2. urology follow up for workup right testicle Discussed with Cristino QUIÑONEZ
[2017-08-24] MEDS: Artificial Tears* 15 ML BTL BOTH EYES PRN ×3 (11:36→20:46)
--- NOTE | 2017-08-24 11:37 | PN ---
Subjective Date of Service: 08/24/17 Interval History: Patient continues to feel well. Patient complains today of swollen testicle which has not previously been noted but states that it has been going on for a several weeks to several months but the patient does not remember precisely. Patient denies tenderness to the testicle or pain at rest. Patient denies F/C, N /V, Abdominal pain, diarrhea, CP, SOB, palpitations, dizziness on standing, dysuria, or other pain. Family History: Unchanged from Admission Social History: Unchanged from Admission Past Medical History: Unchanged from Admission Objective Active Medications: Acetaminophen (Tylenol Tab*) 650 mg PO Q6H PRN PRN Reason: FEVER/PAIN Apixaban (Eliquis) 2.5 mg PO BID [facility] Last Admin: 08/24/17 08:34 Dose: 2.5 mg Ascorbic Acid (Vitamin C Tab*) 500 mg PO DAILY [facility] Last Admin: 08/24/17 08:35 Dose: 500 mg Atorvastatin Calcium (Lipitor*) 40 mg PO 2100 [facility] Last Admin: 08/23/17 20:36 Dose: 40 mg Cetirizine HCl (Zyrtec*) 10 mg PO DAILY [facility] PRN Reason: Protocol Last Admin: 08/24/17 08:36 Dose: 10 mg Cyanocobalamin (Vitamin B12 Tab*) 1,000 mcg PO DAILY [facility] Last Admin: 08/24/17 08:36 Dose: 1,000 mcg Digoxin (Lanoxin Tab*) 0.125 mg PO DAILY [facility] Last Admin: 08/24/17 08:37 Dose: 0.125 mg Ferrous Sulfate (Ferrous Sulfate Tab*) 325 mg PO EVERY OTHER DAY [facility] Last Admin: 08/23/17 09:46 Dose: 325 mg Folic Acid (Folvite Tab*) 1 mg PO DAILY [facility] Last Admin: 08/24/17 08:37 Dose: 1 mg Gabapentin (Neurontin Cap(*)) 100 mg PO BID [facility] Last Admin: 08/24/17 08:38 Dose: 100 mg Heparin Sodium (Porcine) (Heparin Flush Picc/Ml/Cvc(*)) 1 ml FLUSH 0600,1800 [facility] PRN Reason: Protocol Last Admin: 08/24/17 09:55 Dose: 1 ml Ceftriaxone Sodium 2,000 mg/ (Sterile Water) 20 mls @ 40 mls/hr IVPB Q12H [facility] Stop: 08/24/17 14:00 Last Admin: 08/24/17 08:35 Dose: 40 mls/hr Ampicillin Sodium 2 gm/ Sodium (Chloride) 100 mls @ 200 mls/hr IVPB Q6H [facility] Insulin Human Lispro (Humalog*) 0 units SUBCUT AC FOUZIA PRN Reason: Protocol Last Admin: 08/24/17 08:24 Dose: Not Given Levothyroxine Sodium (Synthroid Tab*) 100 mcg PO DAILY [facility] Last Admin: 08/24/17 08:38 Dose: 100 mcg Melatonin (Melatonin (Nf)) 3 mg PO BEDTIME [facility] Last Admin: 08/23/17 20:36 Dose: 3 mg Metformin HCl (Glucophage*) 500 mg PO DAILY [facility] Last Admin: 08/24/17 08:39 Dose: 500 mg Metoprolol Succinate (Toprol Xl Tab*) 50 mg PO DAILY [facility] Last Admin: 08/24/17 08:39 Dose: 50 mg Metoprolol Tartrate (Lopressor Iv*) 5 mg IV Q6H PRN PRN Reason: HEART RATE/PULSE GREATER THAN: Multivitamins/Minerals (Theragran/Minerals Tab*) 1 tab PO DAILY [facility] Last Admin: 08/24/17 08:39 Dose: 1 tab Omeprazole (Prilosec Cap*) 20 mg PO 0600 [facility] Last Admin: 08/24/17 05:40 Dose: 20 mg Polyvinyl Alcohol (Polyvinyl Alcohol 1.4% Opth*) 1 drop BOTH EYES TID PRN PRN Reason: DRY EYE Last Admin: 08/22/17 09:56 Dose: 1 drop Vital Signs - 8 hr 08/24/17 08/24/17 08/24/17 07:36 08:37 08:38 Temperature 97.9 F Pulse Rate 70 70 Respiratory 16 16 Rate Blood Pressure 147/68 (mmHg) O2 Sat by Pulse 97 Oximetry 08/24/17 08/24/17 08/24/17 09:13 10:42 11:08 Temperature 97.1 F Pulse Rate 64 Respiratory 16 16 16 Rate Blood Pressure 113/51 (mmHg) O2 Sat by Pulse 100 Oximetry Oxygen Devices in Use Now: None Appearance: Patient is an 87yo male who appears stated age and is sitting in the bed in [facility]. Eyes: No Scleral Icterus, PERRLA, - - Subconjunctival hemorrhage in Left eye. Ears/Nose/Mouth/Throat: NL Teeth, Lips, Gums, Clear Oropharnyx, Mucous Membranes Moist Neck: NL Appearance and Movements; NL JVP, Trachea Midline Respiratory: Symmetrical Chest Expansion and Respiratory Effort, Clear to Auscultation Cardiovascular: NL Sounds; No Murmurs; No JVD, RRR, No Edema Abdominal: NL Sounds; No Tenderness; No Distention, No Hepatosplenomegaly Lymphatic: No Cervical Adenopathy Extremities: No Edema, No Clubbing, Cyanosis Skin: No Nodules or Sclerosis, - - Purpura on B/L forearms. Neurological: Alert and Oriented x 3, NL Sensation, - - Decreased ROM and Strength in LUE. No other focal deficits. Intermittent word finding difficulties. Result Diagrams: 08/24/17 05:43 08/24/17 05:43 Assess/Plan/Problems-Billing Assessment: Mr. Concepcion is an 87yo male with a PMH significant for CVAx3, aortic valve endocarditis, mitral valve replacement, afib, nephrolithiasis with pyelonephritis and anemia who is admitted swing for 42 total days of IV antibiotics which was complicated by a stroke possibly related to his endocarditis. - Patient Problems (1) Bacteremia due to Enterococcus Current Visit: No Status: Acute Code(s): R78.81 - BACTEREMIA; B95.2 - ENTEROCOCCUS THE CAUSE OF DISEASES CLASSIFIED ELSEWHERE SNOMED Code(s): 210227856494 Comment: Continue plan for ampicillin Q6h and ceftriaxone Q12 per Dr[address] Abdalla for enterococcus bacteremia and AV endocarditis, last day today. Likely cause of embolic stroke. No brain abscess identified on MRI. (2) Endocarditis Current Visit: No Status: Acute Code(s): I38 - ENDOCARDITIS, VALVE UNSPECIFIED SNOMED Code(s): 60881002 Comment: Aortic valve vegetation seen on JUAN 07/14/17, resolved on JUAN on 08/22. Family and patient decided not to pursue valve replacement Completed antibiotics today. (3) CVA (cerebral vascular accident) Current Visit: No Status: Acute Code(s): I63.9 - CEREBRAL INFARCTION, UNSPECIFIED SNOMED Code(s): 021517861 Comment: Patient had a CVA with residual aphasia in the evening of 07/30, likely 2/2 infective endocarditis Improvement of CVA sequelae, at baseline per family. (4) Left upper extremity swelling Current Visit: Yes Status: Acute Code(s): M79.89 - OTHER SPECIFIED SOFT TISSUE DISORDERS SNOMED Code(s): 258427792 Comment: US of B/L UE negative for clot. Recommended elevation. (5) Anemia Current Visit: No Status: Acute Code(s): D64.9 - ANEMIA, UNSPECIFIED SNOMED Code(s): 009802546 Comment: Stable around 10. Continue iron supplementation. (6) Atrial fibrillation Current Visit: No Status: Acute Code(s): I48.91 - UNSPECIFIED ATRIAL FIBRILLATION SNOMED Code(s): 85065858 Comment: Had episode of RVR in the 150s last week. Converted to NSR with metoprolol and vagal maneuvers. Monitored by frequent VS. Was asymptomatic. Metoprolol and digoxin for rate control Continue Eliquis No signs of recurrence. (7) Diabetes Current Visit: No Status: Acute Code(s): E11.9 - TYPE 2 DIABETES MELLITUS WITHOUT COMPLICATIONS SNOMED Code(s): 64828943 Comment: BGs well controlled. Continue BG AC with Lispro SSI coverage with meals. (8) Hypothyroid Current Visit: No Status: Acute Code(s): E03.9 - HYPOTHYROIDISM, UNSPECIFIED SNOMED Code(s): 10711051 Comment: Continue synthroid daily (9) Enlarged testicle Current Visit: Yes Status: Acute Code(s): N50.89 - OTHER SPECIFIED DISORDERS OF THE MALE GENITAL ORGANS SNOMED Code(s): 200259730 Comment: Non-tender enlarged left testicle. No nodularity, may have been going on for up to 3 months per patient. Recommend F/U outpatient. (10) DNR (do not resuscitate) Current Visit: No Status: Acute Comment: (11) DVT prophylaxis Current Visit: No Status: Acute Code(s): SFE6262 - SNOMED Code(s): 709244135 Comment: On Eliquis Status and Disposition: Remain on swing status, last day of abx 08/24/17. Plan for discharge to [place] tomorrow.
[2017-08-24] MEDS: Ampicillin IV* 2 GM in NS 0.9% 100 ML* 100 ML IVPB SCH ×2 (14:25→20:33)
[2017-08-24] MEDS: Atorvastatin* 40 MG TAB PO SCH (20:33)
[2017-08-24] MEDS: CMCS: Melatonin (NF) 3 MG TAB PO SCH (20:34)
[2017-08-25] MEDS: Ampicillin IV* 2 GM in NS 0.9% 100 ML* 100 ML IVPB SCH (02:30)
[2017-08-25] MEDS: Omeprazole CAP* 20 MG PO SCH (05:47)
[2017-08-25] MEDS: Insulin LISPRO* 1 UNITS UNIT SUBCUT SCH ×2 (08:32→13:04)
[2017-08-25] MEDS: Digoxin TAB* 0.125 MG PO SCH (09:18)
[2017-08-25] MEDS: Apixaban* 2.5 MG TAB PO SCH (09:18)
[2017-08-25] MEDS: Artificial Tears* 15 ML BTL BOTH EYES PRN (09:18)
[2017-08-25] MEDS: Multivitamins/Minerals TAB PO SCH (09:19)
[2017-08-25] MEDS: Metoprolol Succinate XL TAB* 25 MG PO SCH (09:19)
[2017-08-25] MEDS: Gabapentin CAP(*) 100 MG PO SCH (09:19)
[2017-08-25] MEDS: Ferrous Sulfate TAB* 325 MG PO SCH (09:20)
[2017-08-25] MEDS: Cyanocobalamin TAB* 500 MCG PO SCH (09:20)
[2017-08-25] MEDS: Levothyroxine TAB* 100 MCG TAB PO SCH (09:20)
[2017-08-25] MEDS: Folic Acid TAB* 1 MG PO SCH (09:20)
[2017-08-25] MEDS: Ascorbic Acid TAB* 500 MG PO SCH (09:20)
[2017-08-25] MEDS: Cetirizine* 10 MG TAB PO SCH (09:21)
[2017-08-25] MEDS: metFORMIN* 500 MG TAB PO SCH (09:21)
[2017-08-25 10:19] VITALS: BP 132/47
--- NOTE | 2017-08-26 15:38 | DS ---
CC: [facility]; Dr. Al Ac; Dr. Suhas Abdalla * DISCHARGE SUMMARY: DATE OF CHANGE TO SWING STATUS: 08/02/17 DATE OF DISCHARGE: 08/25/17 PRIMARY CARE PROVIDER: [facility]. ATTENDING PROVIDER: Kristian Christie MD* (DICTATED BY OLAMIDE BARNETT) PRIMARY DISCHARGE DIAGNOSES: 1. Enterococcus endocarditis, resolved. 2. Acute embolic stroke. 3. Atrial fibrillation with rapid ventricular response. 4. Enlarged right testicle. SECONDARY DISCHARGE DIAGNOSES: 1. Coronary artery disease. 2. Paroxysmal atrial fibrillation. 3. Nephrolithiasis. 4. Pyelonephritis. 5. Diabetes mellitus type 2. 6. Hypothyroidism. 7. 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 8. Benign prostatic hyperplasia. 9. History of hemorrhage. 10. Chronic anemia. 11. Hypothyroidism. 12. Systolic congestive heart failure. STUDIES DONE DURING THIS ADMISSION: Venous Doppler study from 08/19/17 read as : Left side PICC line in the left for right upper extremity deep vein thrombosis , transesophageal echocardiogram from 08/22/17 read as: Mild global hypokinesis of the left ventricle. There is mildly decreased left ventricular systolic function. Estimated ejection fraction is 45% to 50%. No thrombus was visualized from the left atrium, intraatrial septum appears intact without evidence of stenting. A bubble study was not performed due to prior negative bubble study during a transthoracic echocardiogram on 02/25/16. The aortic valve leaflets are mildly thickened. No obvious vegetation. There is trace aortic regurgitation. There is no evidence of aortic stenosis. A bioprosthetic mitral valve was present. No vegetation observed on the mitral valve. No evidence of mitral stenosis. There is mild mitral regurgitation. There is mild tricuspid regurgitation. The right ventricular systolic pressure is estimated at 39 mmHg. No vegetation is observed in the tricuspid valve. There is no significant pericardial effusion. 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 There is mild arthrosclerotic plaque visualized in segments of the aorta. Compared to JUAN study of 07/14/17, the left ventricular function is the same. The thickening and vegetation of the aortic valve is less obvious. No clear vegetations. Electrocardiogram from 08/17/17 shows rate of 160. Irregular irregular rhythm consistent with atrial fibrillation. No P waves are visible. Normal axis. No other abnormalities. EKG repeat from 08/17/17 shows normal sinus rhythm, right bundle branch block. No significant ST segment abnormalities. Possible left atrial enlargement. No other abnormalities. QTc of 456, normal axis. EKGs from 08/19/17 and 08/20/17 show no significant changes. Chest x-ray from 08/24/17 for the process of ruling out tuberculosis shows postoperative changes, minimal left basilar abnormalities , negative study for tuberculosis. MEDICATIONS AT DISCHARGE: 1. Folic acid 1 mg p.o. daily. 2. Metoprolol succinate 50 mg p.o. daily. 3. Tylenol 650 mg p.o. q. 6 hours as needed. 4. Eliquis 2.5 mg p.o. b.i.d. 5. Artificial tears 1 drop both eyes t.i.d. as needed. 6. Ascorbic acid 500 mg p.o. daily. 7. Lipitor 40 mg p.o. q. p.m. 8. Cetirizine 10 mg p.o. daily. 9. Vitamin B12 at 1000 mcg p.o. daily. 10. Digoxin 0.125 mg p.o. daily. 11. Ferrous sulfate 325 mg p.o. every other day. 12. Gabapentin 10 mg p.o. b.i.d. 13. Levothyroxine 100 mcg p.o. daily. 14. Melatonin 1 mg p.o. bedtime. 15. Metformin 500 mg p.o. b.i.d. 16. Multivitamin 1 tab p.o. daily. 17. Omeprazole 20 mg p.o. daily. HOSPITAL COURSE: The patient's hospitalization was long and involved several different discharge summaries due to changes in status from admission to inpatient. Please reference the history and physical from 07/11/17 as well as the discharge summaries from 07/19/17, 07/31/18 and 08/03/17 for a more complete accounting of his hospitalization. In brief, the patient is an 87-year-old male who originally presented for sepsis secondary to pyelonephritis with an associated 11 mm kidney stone in his right ureter with laser lithotripsy. The patient was started on antibiotics. The patient had positive blood cultures for Enterococcus faecalis and a transesophageal echocardiogram which showed vegetation on his aortic valve. The patient was started on ampicillin and ceftriaxone with a plan for a 6-week course of treatment. The patient had an uneventful course until 07/30/17 when he was found to have altered mental status and significant word finding difficulties which were attributed to a stroke, likely due from an embolic source related to his endocarditis. The patient and family decided against aortic valve replacement given his point in therapy and his overall relatively poor health. The patient also at this time was found to be significantly anemic with a hemoglobin down to 8.7 and positive stool occult blood, but his hemoglobin then increased again to the 9 to 10 range, which was his baseline. The patient then continued on an uneventful clinical course until 08/17/17 when the patient was found on exam to have a heart rate of 150. EKG was obtained and read as above, presumed to be due to atrial fibrillation with RVR. The patient was converted out of this with vagal maneuvers and 1 dose of metoprolol tartrate IV. The patient's metoprolol succinate was increased from 25 to 50 mg p.o. daily, which he tolerated well. The patient's digoxin level was obtained and was within therapeutic range. The patient had no other occurrences of atrial fibrillation while in the hospital. The patient had swelling in his bilateral upper extremities and a venous Doppler ultrasound was obtained and read as above showing no evidence of DVT. The patient had a chest x- ray to rule out tuberculosis, which was read as above showing no signs of tuberculosis. The patient while in the hospital had altered mental status approximately every night consistent with sundowning associated with mild cognitive impairment. The patient has stable hemoglobin with macrocytosis, elevated RDW, and a high nucleated RBC level. The patient had mildly elevated blood sugars, was treated with sliding scale insulin throughout his hospitalization. The patient for several months according to his report an enlarged right testicle, which was never noted before the exam on 08/23/17. The patient has no pain or inflammation with this. The patient has no other symptoms associated with it. It was decided to have the patient followup as outpatient with Urology to test for the etiology of this, which could possibly represent cancer. The patient had no other abnormalities and was discharged to [facility] on 08/25/17. PHYSICAL EXAMINATION ON THE DAY OF DISCHARGE: General: The patient is an 87- year- old male, who appears stated age and sitting comfortably in bed, in no acute distress. Vital Signs: At the time of discharge, temperature 97.4, pulse rate 72, respiratory rate 16, oxygen saturation 100% on room air, blood pressure 132/47. HEENT: Head normocephalic, atraumatic. Sclerae anicteric. No conjunctival injection. The patient has a left sided subconjunctival hemorrhage in the left lower quadrant of his sclera which has been present since 08/24/17, has no other associated signs or abnormalities. Neck: Supple. Nontender, no lymphadenopathy. No carotid bruits auscultated. No JVD. Cardiac: Regular rate and rhythm. No clicks, murmurs, gallops or rubs. Pulses 2+ in bilateral dorsalis pedis, posterior tibialis, and radial areas. No bilateral lower extremity edema is noted. Trace upper extremity edema noted , improved from previous exam. Pulses 2+ in bilateral dorsalis pedis, posterior tibialis, and radial areas. No bilateral calf tenderness noted. Respiratory: Clear to auscultation bilaterally. No wheezes, rales, or rhonchi. Good air exchange bilaterally. Abdomen: Soft, nontender, nondistended. Bowel sounds present. Normoactive in all 4 quadrants. No hepatosplenomegaly. No abdominal bruits auscultated. Genitourinary: No suprapubic or CVA tenderness. The patient's right testicle is approximately 3 times the size of his left testicle being approximately 3 cm in diameter. No nodularity or tenderness to palpation. Skin: The patient has significant purpura on his forearms and upper neck, which has remained stable throughout patient's hospitalization. Neuro: Cranial nerves II through XII intact. The patient has limited range of motion and strength in his left arm due to a previously known rotator cuff pathology. The patient otherwise has 4/5 strength throughout with no focal deficits. Normal sensation. The patient had occasional word finding difficulties, which the family states is at baseline and is significantly improved from a period after his acute stroke while hospitalized. Psychiatric: The patient is very pleasant and cooperative. LABORATORY DATA: From 08/24/17, white blood cell count 4.7, hemoglobin 9.3, hematocrit 28, MCV 101, MCH 34, RDW 25, platelet count 230. Sodium 138, potassium 3.8, chloride 108, carbon dioxide 25, anion gap 5, BUN 34, creatinine 1.11, glucose 108, calcium 9.0, CRP 27.47. DISCHARGE PLAN: The patient will be discharged to [facility] to live with his . The patient is to followup with the facility physician for general medical management. The patient's most recent primary care provider was in [place] and he does not intend to followup with him. The patient should followup with Dr. Ac's office next Monday09/01/17 for concern of nephrolithiasis with pyelonephritis as well as enlarged right testicle. The patient should follow up with Dr. Abdalla within 1 to 2 weeks. The patient will be called with this appointment time. The patient did not need further antibiotics. The patient's metformin was increased at discharge. The patient should continue taking metoprolol at discharge. The patient should return to hospital for alarming symptoms of chest pain, shortness of breath, prolonged palpitations, syncope, fevers which did not respond to medication, severe abdominal pain, or other alarming symptoms. The patient should get any activity as tolerated, work with Physical Therapy and Occupational Therapy in a nonacute setting to maintain his strength and ability to perform ADLs. The patient should have a heart-healthy, consistent carbohydrate diet without caffeine. TIME SPENT: Approximately 60 minutes was spent on this discharge admission, 30 of which was spent [id number] with the patient obtaining history and physical and discussing the treatment plan. OLAMIDE BARNETT [id number]/CPS #: [id number] MTDD
== END 2017-08-25 14:00 | disposition home or self-care (01) | DRG 289 ==
LOC: MEDTELE 15:29 → MED 15:54
PROVIDERS: ADMIT Hospitalist; ATTEND Internal Medicine
PROC: B24BZZ4 Ultrasonography of Heart with Aorta, Transesophageal (ICD-10-PCS; principal; 2017-08-22 14:30)
DX: I33.0 Acute and subacute infective endocarditis (principal); F05 Delirium due to known physiological condition; R78.81 Bacteremia; I50.20 Unspecified systolic (congestive) heart failure; I48.0 Paroxysmal atrial fibrillation; D64.9 Anemia, unspecified; B95.2 Enterococcus as the cause of diseases classified elsewhere; E11.9 Type 2 diabetes mellitus without complications; G31.84 Mild cognitive impairment of uncertain or unknown etiology; I25.10 Atherosclerotic heart disease of native coronary artery without angina pectoris; E03.9 Hypothyroidism, unspecified; N40.0 Benign prostatic hyperplasia without lower urinary tract symptoms; I08.0 Rheumatic disorders of both mitral and aortic valves; R31.9 Hematuria, unspecified; N44.8 Other noninflammatory disorders of the testis; Z66 Do not resuscitate; M79.89 Other specified soft tissue disorders; I69.320 Aphasia following cerebral infarction; Z87.442 Personal history of urinary calculi; Z95.2 Presence of prosthetic heart valve; Z79.84 Long term (current) use of oral hypoglycemic drugs; Z79.01 Long term (current) use of anticoagulants
CPT/HCPCS: 36415; 71045; 80048; 80162; 85025; 85060; 86140; 93005; 93312; 93325; 93970; 99156; 99157; A9270-GY; G8987-GO-CI; G8988-GO-CI; G8989-GO-CI; J0290; J0696; J2250; J2310; J3010; J3490

== ENCOUNTER 2018-04-26 19:41 | Inpatient (IN) | payer MEDICARE, BC ==
[2018-04-26 20:39] LABS: Hematocrit 38 % (42-52); Hemoglobin 12.1 g/dl (14.0-18.0); Mean Corpuscular HGB Conc 32 g/dl (31-36); Mean Corpuscular Hemoglobin 33 pg (27-31); Mean Corpuscular Volume 102 fL (80-94); Mean Platelet Volume 10.7 fL (7.4-10.4); Platelet Count 171 10^3/ul (150-450); Red Cell Distribution Width 17 % (10.5-15); White Blood Count 10.1 10^3/ul (3.5-10.8)
[2018-04-26 20:46] LABS: INR 1.37 (0.77-1.02)
[2018-04-26 20:56] LABS: EGFR Non-African American 60.8 (>60)
[2018-04-26 21:04] LABS: ABS Basophils 0 10^3/ul (0-0.2); ABS Eosinophils 0 10^3/ul (0-0.6); ABS Lymphocytes 1.7 10^3/ul (1.0-4.8); ABS Monocytes 0.6 10^3/ul (0-0.8); ABS Neutrophils 7.7 10^3/ul (1.5-7.7); ABS Nucleated RBC 0.1 10^3/ul; Eosinophil % 0 % (0-6); Lymphocyte % 16.6 % (25-47); Nucleated Red Blood Cells % 1.1
--- NOTE | 2018-04-26 23:56 | ED ---
Altered Mental Status - HPI Summary HPI Summary: Patient sent from [place] sent to ED for evaluation of altered mental status, lethargy. [place] staff states patient was seen by PCP today with routine lab work and abdominal ultrasound ordered for tomorrow. Staff states patient has been complaining of abdominal pain x 3 days with intermittent N/V. Patient is alert and oriented, but occasionally wanders in his speech and focus. Nonspecific source of history of present illness. However denies pain, SOB, CP , cough, sore throat, headache, abdominal pain. [place] staff denies fever, SOB, change in urine, change in BM. Medical history is A. fib, CHF, CAD DM2, CVA, BPH, anemia, hypothyroid, mitral valve replacement. On Xarelto. - History Of Current Complaint Chief Complaint: EDAltMentalStatus Stated Complaint: AMS Time Seen by Provider: 04/26/18 19:56 Hx Obtained From: Patient, Family/Compound Finisher Onset/Duration: Unknown Timing: Intermittent Severity Initially: Moderate Severity Currently: Moderate Character: Confusion Aggravating Factor(s): Unknown Alleviating Factor(s): Unknown Associated Signs And Symptoms: Positive: Nausea, Vomiting - Allergies/Home Medications Allergies/Adverse Reactions: Allergies Allergy/AdvReac Type Severity Reaction Status Date / Time No Known Allergies Allergy Verified 04/18/14 13:29 PMH/Surg Hx/FS Hx/Imm Hx Endocrine/Hematology History: Reports: Hx Anticoagulant Therapy - Eliquis, Hx Diabetes, Hx Thyroid Disease - hypothyroid, Hx Anemia Cardiovascular History: Reports: Hx Atrial Fibrillation, Hx Coronary Artery Disease, Hx Hypertension, Hx Valvular Heart Disease - Mitral valve prolapse Denies: Hx Pacemaker/ICD History: Reports: Hx Benign Prostatic Hyperplasia, Hx Kidney Infection, Hx Kidney Stones, Other Problems/Disorders - Recent ureter stent removal with Dr. Chavez 07/28/17 Sensory History: Reports: Hx Contacts or Glasses, Hx Legally Blind - left eye Denies: Hx Hearing Aid Opthamlomology History: Reports: Hx Contacts or Glasses, Hx Legally Blind - left eye Neurological History: Reports: Hx CVA - x2, Hx Dementia, Hx Transient Ischemic Attacks (TIA), Other Neuro Impairments/Disorders - Hemiplegia and hemiparesis Psychiatric History: Denies: Hx Panic Disorder - Surgical History Surgery Procedure, Year, and Place: rtc 11/26, cataracts rt eye,heart valve,t&a, kidney stone,prostate Infectious Disease History: No Infectious Disease History: Denies: Traveled Outside the [place] in Last 30 Days - Family History Known Family History: Positive: Cardiac Disease - Social History Alcohol Use: None Hx Substance Use: No Substance Use Type: Reports: None Hx Tobacco Use: No Smoking Status (MU): Never Smoked Tobacco Review of Systems Constitutional: Negative Eyes: Negative ENT: Negative Cardiovascular: Negative Respiratory: Negative Positive: Abdominal Pain, Vomiting, Nausea Genitourinary: Negative Musculoskeletal: Negative Skin: Negative Neurological: Negative Psychological: Normal All Other Systems Reviewed And Are Negative: Yes Physical Exam - Summary Physical Exam Summary: Patient nonspecific in answers to physical exam. Reacts to palpation of abdomen diffusely. Physical exam otherwise unremarkable. Triage Information Reviewed: Yes Vital Signs On Initial Exam: Initial Vitals Temp Pulse Resp BP Pulse Ox 100.1 F 90 20 154/68 94 04/26/18 19:47 04/26/18 19:47 04/26/18 19:47 04/26/18 19:47 04/26/18 19:47 Vital Signs Reviewed: Yes Appearance: Positive: Well-Appearing Skin: Positive: Warm Head/Face: Positive: Normal Head/Face Inspection Eyes: Positive: Normal Neck: Positive: Supple Respiratory/Lung Sounds: Positive: Clear to Auscultation Cardiovascular: Positive: Normal Abdomen Description: Positive: Other: Musculoskeletal: Positive: Normal Neurological: Positive: Normal Psychiatric: Positive: Normal AVPU Assessment: Alert - [place] Coma Scale Best Eye Response: 4 - Spontaneous Best Motor Response: 6 - Obeys Commands Best Verbal Response: 5 - Oriented Coma Scale Total: 15 Diagnostics - Vital Signs Vital Signs Temp Pulse Resp BP Pulse Ox 04/26/18 23:17 84 23 144/65 97 04/26/18 23:04 11 04/26/18 21:42 100.9 F 83 16 134/48 96 04/26/18 19:47 100.1 F 90 20 154/68 94 - Laboratory Lab Results: Lab Results 04/26/18 04/26/18 04/26/18 Range/Units 20:33 20:33 20:33 WBC 10.1 (3.5-10.8) 10^3/ul RBC 3.70 L (4.00-5.40) 10^6/ul Hgb 12.1 L (14.0-18.0) g/dl Hct 38 L (42-52) % MCV 102 H (80-94) fL MCH 33 H (27-31) pg MCHC 32 (31-36) g/dl RDW 17 H (10.5-15) % Plt Count 171 (150-450) 10^3/ul MPV 10.7 H (7.4-10.4) fL Neut % (Auto) 76.8 (38-83) % Lymph % (Auto) 16.6 L (25-47) % [place] % (Auto) 6.1 (0-7) % Eos % (Auto) 0 (0-6) % Baso % (Auto) 0.5 (0-2) % Absolute Neuts (auto) 7.7 (1.5-7.7) 10^3/ul Absolute Lymphs (auto) 1.7 (1.0-4.8) 10^3/ul Absolute Monos (auto) 0.6 (0-0.8) 10^3/ul Absolute Eos (auto) 0 (0-0.6) 10^3/ul Absolute Basos (auto) 0 (0-0.2) 10^3/ul Absolute Nucleated RBC 0.1 10^3/ul Nucleated RBC % 1.1 INR (Anticoag Therapy) 1.37 H (0.77-1.02) Sodium 132 L (135-145) mmol/L Potassium 4.2 (3.5-5.0) mmol/L Chloride 99 L (101-111) mmol/L Carbon Dioxide 27 (22-32) mmol/L Anion Gap 6 (2-11) mmol/L BUN 26 H (6-24) mg/dL Creatinine 1.14 (0.67-1.17) mg/dL Est GFR ( Amer) 73.5 (>60) Est GFR (Non-Af Amer) 60.8 (>60) BUN/Creatinine Ratio 22.8 H (8-20) Glucose 244 H (70-100) mg/dL Lactic Acid (0.5-2.0) mmol/L Calcium 9.4 (8.6-10.3) mg/dL Total Bilirubin 1.80 H (0.2-1.0) mg/dL AST 253 H (13-39) U/L ALT 323 H (7-52) U/L Alkaline Phosphatase 163 H (34-104) U/L Troponin I 0.02 (<0.04) ng/mL C-Reactive Protein 104.20 H (<8.01) mg/L B-Natriuretic Peptide (<=100) pg/mL Total Protein 6.7 (6.4-8.9) g/dL Albumin 3.7 (3.2-5.2) g/dL Globulin 3.0 (2-4) g/dL Albumin/Globulin Ratio 1.2 (1-3) TSH 1.70 (0.34-5.60) mcIU/mL 04/26/18 04/26/18 Range/Units 20:33 20:33 WBC (3.5-10.8) 10^3/ul RBC (4.00-5.40) 10^6/ul Hgb (14.0-18.0) g/dl Hct (42-52) % MCV (80-94) fL MCH (27-31) pg MCHC (31-36) g/dl RDW (10.5-15) % Plt Count (150-450) 10^3/ul MPV (7.4-10.4) fL Neut % (Auto) (38-83) % Lymph % (Auto) (25-47) % [place] % (Auto) (0-7) % Eos % (Auto) (0-6) % Baso % (Auto) (0-2) % Absolute Neuts (auto) (1.5-7.7) 10^3/ul Absolute Lymphs (auto) (1.0-4.8) 10^3/ul Absolute Monos (auto) (0-0.8) 10^3/ul Absolute Eos (auto) (0-0.6) 10^3/ul Absolute Basos (auto) (0-0.2) 10^3/ul Absolute Nucleated RBC 10^3/ul Nucleated RBC % INR (Anticoag Therapy) (0.77-1.02) Sodium (135-145) mmol/L Potassium (3.5-5.0) mmol/L Chloride (101-111) mmol/L Carbon Dioxide (22-32) mmol/L Anion Gap (2-11) mmol/L BUN (6-24) mg/dL Creatinine (0.67-1.17) mg/dL Est GFR ( Amer) (>60) Est GFR (Non-Af Amer) (>60) BUN/Creatinine Ratio (8-20) Glucose (70-100) mg/dL Lactic Acid 1.4 (0.5-2.0) mmol/L Calcium (8.6-10.3) mg/dL Total Bilirubin (0.2-1.0) mg/dL AST (13-39) U/L ALT (7-52) U/L Alkaline Phosphatase (34-104) U/L Troponin I (<0.04) ng/mL C-Reactive Protein (<8.01) mg/L B-Natriuretic Peptide 412 H (<=100) pg/mL Total Protein (6.4-8.9) g/dL Albumin (3.2-5.2) g/dL Globulin (2-4) g/dL Albumin/Globulin Ratio (1-3) TSH (0.34-5.60) mcIU/mL Result Diagrams: 04/26/18 20:33 04/26/18 20:33 Lab Statement: Any lab studies that have been ordered have been reviewed, and results considered in the medical decision making process. Altered Mental Statu Course/Dx - Course Course Of Treatment: Patient sent from [place] sent to ED for evaluation of altered mental status, lethargy. [place] staff states patient was seen by PCP today with routine lab work and abdominal ultrasound ordered for tomorrow. Staff states patient has been complaining of abdominal pain x 3 days with intermittent N/V. Patient is alert and oriented, but occasionally wanders in his speech and focus. Nonspecific source of history of present illness. However denies pain, SOB, CP, cough, sore throat, headache, abdominal pain. [place] staff denies fever, SOB, change in urine, change in BM. Medical history is A. fib, CHF, CAD DM2, CVA, BPH, anemia, hypothyroid, mitral valve replacement. On Xarelto. Physical exam: Patient nonspecific in answers to physical exam. Reacts to palpation of abdomen diffusely. Physical exam otherwise unremarkable. Vital signs within normal limits. Elevated liver enzymes and elevated BNP with no prior data to compare to. Labs otherwise are patient baseline or unremarkable. Ultrasound gallbladder negative. No active N /V here in the ED. Chest x-ray negative. Echo 08/22/17 EF 45-50%. Head CT negative. CT abdomen and pelvis has mild pericholecystic stranding without calculus. Mild wall thickening 0.3cm. UA POS for UTI - Diagnoses Provider Diagnoses: Altered mental status, unspecified, UTI (urinary tract infection) Discharge - Sign-Out/Discharge Documenting (check all that apply): Patient Departure - Discharge Plan Condition: Stable Disposition: ADMITTED TO [facility] Referrals: Maylin Kinsey NP [Primary Care Provider] - - Billing Disposition and Condition Condition: STABLE Disposition: Admitted to [facility]
[2018-04-27] MEDS ORDERED: Iodixanol* (CONTRAST) 320 MG/ML 100 ML SDV IV ONE (00:07)
[2018-04-27 00:45] LABS: Urine Appearance Cloudy; Urine Blood 3+ (Negative); Urine Color Yellow; Urine Ketones Negative (Negative); Urine Protein 1+(30 mg/dL) (Negative); Urine Red Blood Cell 3+(>10/hpf) (Absent); Urine Urobilinogen Negative (Negative); Urine White Blood Cell 3+(>20/hpf) (Absent)
[2018-04-27] MEDS ORDERED: cefTRIAXone(*) 1 GM in NS 0.9% 50 ML* 50 ML IVPB ONE (01:15)
[2018-04-27] MEDS ORDERED: Acetaminophen TAB* 325 MG PO ONE (01:54)
[2018-04-27] MEDS ORDERED: Ondansetron INJ* 2 MG/ML VIAL IV PRN (02:17)
[2018-04-27] MEDS ORDERED: Morphine VIAL* 4 MG/ML VIAL (1 ml vial) IV PRN (02:17)
[2018-04-27] MEDS ORDERED: Senna TAB PO PRN (02:17)
[2018-04-27] MEDS ORDERED: Docusate CAP* 100 MG PO PRN (02:17)
[2018-04-27] MEDS ORDERED: Vancomycin(*) 1,000 MG in NS 0.9% 250 ML* 250 ML IVPB ONE (02:20)
[2018-04-27] MEDS ORDERED: Melatonin 3 MG TAB PO PRN (02:23)
[2018-04-27] MEDS ORDERED: Dextrose 50% Syringe 50 ML* 25 GM/50 ML SYRINGE IV PUSH PRN (02:25)
[2018-04-27] MEDS ORDERED: Vancomycin(*) 0 MG in NS 0.9% 250 ML* 250 ML IVPB SCH (03:00)
[2018-04-27] MEDS: NS 0.9% 1000 ML* 1,000 ML IV SCH ×2 (03:47→13:31)
[2018-04-27] MEDS ORDERED: Vancomycin per Pharmacy* NOTE FOLLOW UP PRN (04:45)
[2018-04-27] MEDS: Levothyroxine TAB* 100 MCG TAB PO SCH ×2 (06:13→06:17)
[2018-04-27] MEDS: Omeprazole CAP* 20 MG PO SCH ×2 (06:13→06:17)
--- NOTE | 2018-04-27 07:11 | HP ---
CC: Maylin Kinsey NP * HISTORY AND PHYSICAL: DATE OF ADMISSION: 04/27/18 TIME OF EVALUATION: 02:00 CHIEF COMPLAINT: Abdominal pain, altered mental status. PRIMARY CARE PROVIDER: Maylin Kinsey NP HISTORY OF PRESENT ILLNESS: This is an 88-year-old male with a past medical history of atrial fibrillation, recent endocarditis bacteremia back in June, who presented to the emergency room from [place] for abdominal pain and not acting himself. According to the notes, the patient missed dinner which is unusual for him. He was planning to see the physician today, 04/27/18, to get blood work, but they were concerned for his change in mental status and abdominal discomfort. They brought him to the emergency room for further evaluation. On my encounter, the patient states he has had periumbilical pain for the past few week. It has not progressed or worsened. He denies any nausea , vomiting, diarrhea, change in his bowels. He denies any urinary symptoms. No chest pain, shortness of breath. Otherwise, review of systems is negative. In the emergency room, the patient had labs, imaging. He was found to be afebrile with elevated LFTs. He was given ceftriaxone, Tylenol, and referred to the hospitalist service for further evaluation. PAST MEDICAL HISTORY: 1. Diabetes. 2. Atrial fibrillation, on anticoagulation. 3. 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 4. History of hydronephrosis and nephrolithiasis, status post right ureteral stent. 5. Coronary artery disease. 6. Hypothyroidism. 7. BPH. MEDICATIONS: 1. Ascorbic acid 500 mg p.o. daily. 2. Atorvastatin 10 mg p.o. daily. 3. Cetirizine 10 mg daily. 4. Cyanocobalamin 500 mcg p.o. daily. 5. Digoxin 125 mcg p.o. daily. 6. Ferrous sulfate 1 tab p.o. daily. 7. Folic acid 1 mg p.o. daily. 8. Synthroid 100 mcg p.o. daily. 9. Melatonin 1 mg p.o. daily. 10. Metoprolol succinate 50 mg p.o. daily. 11. Omeprazole 20 mg daily. 12. Multivitamin daily. 13. Debrox as needed. 14. Doxycycline 100 mg p.o. b.i.d. starting on 04/21/18. 15. Eliquis 2.5 mg p.o. b.i.d. 16. Eucerin cream as needed. 17. Gabapentin 100 mg p.o. b.i.d. 18. Metformin 500 mg p.o. b.i.d. 19. Artificial tears 3 times a day as needed. 20. Tylenol as needed. ALLERGIES: No known drug allergies. FAMILY HISTORY: Reviewed and noncontributory. SOCIAL HISTORY: The patient lives at [place]. His son, Renaldo Johnston, is his healthcare proxy. No history of smoking, alcohol, or illicit drug use. The patient states he ambulates with a walker. He states his code status is DNR/ DNI. We will fill out his MOLST form this evening. REVIEW OF SYSTEMS: A 14-point of review of systems as mentioned in the HPI, otherwise negative. PHYSICAL EXAMINATION GENERAL: No acute distress, resting comfortably. VITAL SIGNS: Temp T-max 100.9, pulse rate 85, respiratory rate 24, oxygen saturation 94% on room air, blood pressure 137/59. HEENT: Head normocephalic. Pupils are equal and reactive. Anicteric. Oropharynx: Mucous membranes are dry. NECK: Supple. No lymphadenopathy. RESPIRATORY: Diminished breath sounds. No wheeze, rhonchi, or rales. CARDIAC: Regular rate and rhythm. Soft systolic murmur heard throughout. ABDOMEN: Hypoactive bowel sounds, distended, soft, diffuse tenderness. EXTREMITIES: Trace pretibial edema. NEUROLOGIC: He is alert and oriented x2, oriented to self and time with no gross focal neurological deficits. DIAGNOSTIC STUDIES/LAB DATA: White count 10, hemoglobin 12.1, hematocrit 38, platelets 171. INR was 1.37. Sodium 132, potassium 4.2, chloride 99, bicarb 27 , BUN 26, creatinine 1.14, glucose 244. Total bili 1.8, AST 253, ALT 323, alk phos 163. CRP 104. BNP 412. TSH 1.7. UA shows positive squamous cells, bacteria, +3 whites and reds. Dig level is 1.1. Radiographic data: Chest x-ray: No significant change, slightly increased opacity in the right middle lobe. Head CT: No acute intracranial abnormality, age-related atrophy, and mild small vessel ischemic disease. Gallbladder ultrasound: No findings to correlate with the patient's symptomatology. Abdominal and pelvis CT: Gallbladder changes of cystitis which does not correlate on the concurrently obtained ultrasound findings that correlate to the patient's liver dysfunction. Multiple pancreatic lesions unchanged, and findings of associated bladder outlet obstruction, right non-obstructing renal calculus. No followup indicated. EKG: Normal sinus rhythm. ASSESSMENT AND PLAN: This is an 88-year-old male with a past medical history of atrial fibrillation, on anticoagulation; benign prostatic hyperplasia, presents to the emergency room with abdominal pain and altered mental status. Abdominal pain and altered mental status. Assessment: My concern is that the patient has an infection with his low-grade temp, elevated LFTs with possibility that he has bacteremia. He does have pyuria and concern about liver an alternative source with his history of bacteremia in the past. I think his altered mental status is secondary to infection, although he could have hepatic encephalopathy with his elevated LFTs. Plan: We will check an ammonia level. Continue IV fluids. Continue ceftriaxone and add vancomycin as he had enterococcus in the past. We will check a liver ultrasound, flu swab, and hepatitis panel, and follow up on his cultures. If his labs continue to be concerning, would recommend ID consultation. CHRONIC MEDICAL PROBLEMS: 1. Diabetes, place him on lispro. 2. GERD. Continue his omeprazole. 3. Atrial fibrillation, on anticoagulation. Continue his metoprolol, his Eliquis. We will hold his digoxin for 1 day and resume it on 04/28/18. 4. Hypothyroid. Continue his Synthroid. FEN: We will place him on clear liquid diet in the setting of significant abdominal pain. DVT prophylaxis: The patient scores high risk. He is on Eliquis. Code status: The patient confirmed he is DNR/DNI. We will have the MOLST form completed. PATIENT TIME: Greater than 50 minutes was spent doing the history and physical , more than half the time was spent in direct patient contact. [id number]/[facility] #: [id number] MTDD
[2018-04-27 07:36] LABS: Hematocrit 37 % (42-52); Hemoglobin 11.7 g/dl (14.0-18.0); Mean Corpuscular HGB Conc 32 g/dl (31-36); Mean Corpuscular Hemoglobin 33 pg (27-31); Mean Corpuscular Volume 104 fL (80-94); Platelet Count 141 10^3/ul (150-450); Red Blood Count 3.52 10^6/ul (4.00-5.40); Red Cell Distribution Width 17 % (10.5-15); White Blood Count 12.3 10^3/ul (3.5-10.8)
[2018-04-27 08:06] LABS: EGFR Non-African American 74.1 (>60)
[2018-04-27 08:15] LABS: ABS Basophils 0 10^3/ul (0-0.2); ABS Eosinophils 0 10^3/ul (0-0.6); ABS Lymphocytes 2.4 10^3/ul (1.0-4.8); ABS Monocytes 1.2 10^3/ul (0-0.8); ABS Neutrophils 8.7 10^3/ul (1.5-7.7); ABS Nucleated RBC 0.2 10^3/ul; Eosinophil % 0 % (0-6); Lymphocyte % 19.3 % (25-47); Nucleated Red Blood Cells % 1.2
[2018-04-27] MEDS: Gabapentin CAP(*) 100 MG PO SCH ×2 (08:41→20:13)
[2018-04-27] MEDS: Apixaban* 2.5 MG TAB PO SCH ×2 (08:41→20:13)
[2018-04-27] MEDS: Acetaminophen TAB* 325 MG PO PRN ×2 (08:41→16:10)
[2018-04-27] MEDS: Metoprolol Succinate XL TAB* 50 MG PO SCH (08:41)
[2018-04-27] MEDS: Insulin LISPRO* 1 UNITS UNIT SUBCUT SCH ×4 (09:11→18:32)
--- NOTE | 2018-04-27 13:43 | PN ---
Subjective Date of Service: 04/27/18 Interval History: Patient has persistent colicky abdominal pain in the RLQ which is 5/10 at it's worst and has been going on for several days. Patient states he had been having frequent urination and a couple episodes of vomiting since Monday. Patient states this does not feel like his previous kidney stones but states that he does not remember very well. Patient states that he has been also having dysuria. Patient denies F/C, N/V, abdominal pain, diarrhea, CP, SOB, dizziness, or other pain. Patient states that he does not remember why his testicle was so enlarged. Family History: Unchanged from Admission Social History: Unchanged from Admission Past Medical History: Unchanged from Admission Objective Active Medications: Acetaminophen (Tylenol Tab*) 650 mg PO Q4H PRN PRN Reason: FEVER/PAIN Last Admin: 04/27/18 08:41 Dose: 650 mg Apixaban (Eliquis*) 2.5 mg PO BID [facility] Last Admin: 04/27/18 08:41 Dose: 2.5 mg Atorvastatin Calcium (Lipitor*) 10 mg PO 1700 [facility] Dextrose (D50w Syringe 50 Ml*) 12.5 gm IV PUSH .FOR FS < 60 - SS PRN PRN Reason: FS < 60 Digoxin (Lanoxin Tab*) 0.125 mg PO 1700 [facility] Docusate Sodium (Colace Cap*) 100 mg PO BID PRN PRN Reason: CONSTIPATION Gabapentin (Neurontin Cap(*)) 100 mg PO BID [facility] Last Admin: 04/27/18 08:41 Dose: 100 mg Sodium Chloride (Ns 0.9% 1000 Ml*) 1,000 mls @ 125 mls/hr IV PER RATE [facility] Last Admin: 04/27/18 13:31 Dose: 125 mls/hr Vancomycin HCl 1,000 mg/ (Sodium Chloride) 250 mls @ 166.667 mls/hr IVPB Q24H [facility] Ceftriaxone Sodium 1 gm/ (Sodium Chloride) 50 mls @ 200 mls/hr IVPB Q24H [facility] Insulin Human Lispro (Humalog*) 0 units [facility]; Protocol Last Admin: 04/27/18 10:24 Dose: 2 unit Levothyroxine Sodium (Synthroid Tab*) 100 mcg PO DAILY@0600 [facility] Last Admin: 04/27/18 06:17 Dose: 100 mcg Melatonin (Melatonin) 3 mg PO BEDTIME PRN PRN Reason: SLEEP Metoprolol Succinate (Toprol Xl Tab*) 50 mg PO DAILY [facility] Last Admin: 04/27/18 08:41 Dose: 50 mg Morphine Sulfate (Morphine Vial*) 1 mg IV Q4H PRN PRN Reason: PAIN - MILD Last Admin: 04/27/18 02:46 Dose: 1 mg Omeprazole (Prilosec Cap*) 20 mg PO DAILY@0600 [facility] Last Admin: 04/27/18 06:17 Dose: 20 mg Ondansetron HCl (Zofran Inj*) 4 mg IV Q4H PRN PRN Reason: NAUSEA/VOMITING Last Admin: 04/27/18 02:46 Dose: 4 mg Pharmacy Consult (Vancomycin Per Pharmacy*) 1 note FOLLOW UP . PRN PRN Reason: PER PROTOCOL Pharmacy Profile Note (Vancomycin Trough Check) 1 note FOLLOW UP .ENTER TIME ONE Stop: 04/29/18 14:31 Senna (Senokot Tab*) 1 tab PO BID PRN PRN Reason: CONSTIPATION Vital Signs - 8 hr 04/27/18 04/27/18 04/27/18 05:53 08:41 09:55 Temperature 97.6 F Pulse Rate 74 Respiratory 16 18 18 Rate Blood Pressure 112/47 (mmHg) O2 Sat by Pulse 95 Oximetry 04/27/18 12:05 Temperature Pulse Rate Respiratory 18 Rate Blood Pressure (mmHg) O2 Sat by Pulse Oximetry Oxygen Devices in Use Now: None Appearance: Patient is an 88yo male who appears stated age and is sitting in the bed in [facility]. Eyes: No Scleral Icterus, PERRLA Ears/Nose/Mouth/Throat: NL Teeth, Lips, Gums, Clear Oropharnyx, Mucous Membranes Moist Neck: NL Appearance and Movements; NL JVP, Trachea Midline Respiratory: Symmetrical Chest Expansion and Respiratory Effort, Clear to Auscultation Cardiovascular: NL Sounds; No Murmurs; No JVD, RRR, No Edema Abdominal: No Hepatosplenomegaly, - - Tenderness to palpation over the left lower quadrant. Negative Thomas's sign. Lymphatic: No Cervical Adenopathy Extremities: No Edema, No Clubbing, Cyanosis Skin: No Rash or Ulcers, No Nodules or Sclerosis Neurological: Alert and Oriented x 3, NL Sensation, NL Muscle Strength and Tone , - - CN II-XII intact Result Diagrams: 04/27/18 06:57 04/27/18 06:57 Additional Lab and Data: Lab Results Microbiology and Other Data: Microbiology 04/27/18 03:29 Nasal Screen MRSA (PCR) - Final Nasal Mrsa Detected 04/27/18 03:30 Influenza Types A,B Antigen - Final Nasopharyngeal Specimen received for Influenza A/B Molecular testing Assess/Plan/Problems-Billing Assessment: Patient is an 88yo male with a PMH for Recurrent UTI, Renal Calculi, HFrEF, Prosthetic Heart Valve with recent enterococcus endocarditis who presents with urinary symptoms and altered mental status consistent with UTI. - Patient Problems (1) UTI (urinary tract infection) Current Visit: No Status: Acute Comment: - Positive UTI with urinary symptoms and CVA tenderness possibly indicating pyelonephritis. - Urine and Blood Cultures pending - On Ceftriaxone and Vancomycin to cover enterococcus. - Renal stone possible nidus for infection. - Continue bladder scans to assess for retention which could predispose to UTI. (2) Altered mental status Current Visit: No Status: Acute Code(s): R41.82 - ALTERED MENTAL STATUS, UNSPECIFIED SNOMED Code(s): 981751450 Comment: - Confused per nursing staff at [place]. - Mild Dementia - Likely Toxic Metabolic Encephalopathy due to UTI or other infection - Improving with Fluids and Antibiotics. (3) Atrial fibrillation Current Visit: No Status: Acute Code(s): I48.91 - UNSPECIFIED ATRIAL FIBRILLATION SNOMED Code(s): 35210250 Comment: - Paroxysmal, currently in regular rhythm on exam - Continue Eliquis, metoprolol and Digoxin - No signs of recurrence. (4) Diabetes Current Visit: No Status: Acute Code(s): E11.9 - TYPE 2 DIABETES MELLITUS WITHOUT COMPLICATIONS SNOMED Code(s): 45784224 Comment: - BGs Slightly elevated - Continue BG AC with Lispro SSI coverage with meals. - Start and increase scheduled mealtime insulin based on Sliding scale results. - Hold Metformin - Check Hemoglobin A1c. (5) Hypothyroid Current Visit: No Status: Acute Code(s): E03.9 - HYPOTHYROIDISM, UNSPECIFIED SNOMED Code(s): 69352765 Comment: - Continue synthroid daily (6) HFrEF (heart failure with reduced ejection fraction) Current Visit: Yes Status: Acute Code(s): I50.20 - UNSPECIFIED SYSTOLIC ( CONGESTIVE) HEART FAILURE SNOMED Code(s): 531499811 Comment: - EF 40-45% on recent Echo - No signs of fluid overload - Use fluids cautiously. (7) DNR (do not resuscitate) Current Visit: No Status: Acute Comment: (8) DVT prophylaxis Current Visit: No Status: Acute Code(s): EHD0286 - SNOMED Code(s): 784287251 Comment: - Eliquis Status and Disposition: Inpatient for IV antibiotics due to history of severe UTIs.
[2018-04-27] MEDS: Vancomycin(*) 1,000 MG in NS 0.9% 250 ML* 250 ML IVPB SCH (16:17)
[2018-04-27] MEDS ORDERED: oxyCODONE TAB* 5 MG TAB PO PRN (16:57)
[2018-04-27] MEDS: Digoxin TAB* 0.125 MG PO SCH (17:44)
[2018-04-27] MEDS: Atorvastatin* 10 MG TAB PO SCH (17:44)
[2018-04-28] MEDS ORDERED: cefTRIAXone(*) 1 GM in NS 0.9% 50 ML* 50 ML IVPB SCH (01:00)
[2018-04-28] MEDS: Levothyroxine TAB* 100 MCG TAB PO SCH (05:45)
[2018-04-28] MEDS: Omeprazole CAP* 20 MG PO SCH (05:45)
[2018-04-28 06:51] LABS: Hematocrit 32 % (42-52); Mean Corpuscular HGB Conc 32 g/dl (31-36); Mean Corpuscular Hemoglobin 33 pg (27-31); Mean Corpuscular Volume 104 fL (80-94); Mean Platelet Volume 11.5 fL (7.4-10.4); Platelet Count 126 10^3/ul (150-450); Red Blood Count 3.06 10^6/ul (4.00-5.40); Red Cell Distribution Width 17 % (10.5-15); White Blood Count 12.5 10^3/ul (3.5-10.8)
[2018-04-28 06:53] LABS: EGFR Non-African American 64.7 (>60)
[2018-04-28 08:23] LABS: Monocytes % 5 % (0-7)
[2018-04-28] MEDS ORDERED: Magnesium Sulfate IV* 3 GM in NS 0.9% 100 ML* 100 ML IVPB ONE (08:30)
[2018-04-28] MEDS ORDERED: ZOSYN 3.375 GM x ONE DOSE over 30 miuntes IVPB ×2 (08:30)
[2018-04-28] MEDS: Apixaban* 2.5 MG TAB PO SCH ×2 (08:37→20:38)
[2018-04-28] MEDS: Gabapentin CAP(*) 100 MG PO SCH ×2 (08:38→20:38)
[2018-04-28] MEDS: Metoprolol Succinate XL TAB* 50 MG PO SCH (08:38)
[2018-04-28] MEDS ORDERED: Ciprofloxacin 400MG IVPREMIX(* 400 MG/200 ML BAG IVPB SCH (09:00)
[2018-04-28] MEDS ORDERED: Cefepime 2 GM in Dextrose(*) 2 GM/50 ML BAG IV SCH (09:00)
[2018-04-28] MEDS: NS 0.9% 1000 ML* 1,000 ML IV SCH (09:03)
[2018-04-28] MEDS: Insulin LISPRO* 1 UNITS UNIT SUBCUT SCH ×3 (09:28→20:39)
[2018-04-28] MEDS ORDERED: NS 0.9% 100 ML* 100 ML ONE (10:41)
[2018-04-28] MEDS: Piperacillin/Tazobac ADVAN(*) 3.375 GM in NS 0.9% 100 ML* 100 ML IVPB SCH ×2 (12:58→20:39)
--- NOTE | 2018-04-28 14:04 | PN ---
Subjective Date of Service: 04/28/18 Interval History: Patient is feeling well today. Patient states he still has colicky pain in abdomen but it is decreasing in intensity. Patient denies F/C, N/V, dizziness CP , SOB, cough, sputum production, dysuria, diarrhea, or other pain. Family History: Unchanged from Admission Social History: Unchanged from Admission Past Medical History: Unchanged from Admission Objective Active Medications: Acetaminophen (Tylenol Tab*) 650 mg PO Q4H PRN PRN Reason: FEVER/PAIN Last Admin: 04/27/18 16:10 Dose: 650 mg Apixaban (Eliquis*) 2.5 mg PO BID [facility] Last Admin: 04/28/18 08:37 Dose: 2.5 mg Atorvastatin Calcium (Lipitor*) 10 mg PO 1700 [facility] Last Admin: 04/27/18 17:44 Dose: 10 mg Dextrose (D50w Syringe 50 Ml*) 12.5 gm IV PUSH .FOR FS < 60 - SS PRN PRN Reason: FS < 60 Digoxin (Lanoxin Tab*) 0.125 mg PO 1700 [facility] Last Admin: 04/27/18 17:44 Dose: 0.125 mg Docusate Sodium (Colace Cap*) 100 mg PO BID PRN PRN Reason: CONSTIPATION Gabapentin (Neurontin Cap(*)) 100 mg PO BID [facility] Last Admin: 04/28/18 08:38 Dose: 100 mg Sodium Chloride (Ns 0.9% 1000 Ml*) 1,000 mls @ 125 mls/hr IV PER RATE [facility] Last Admin: 04/28/18 09:03 Dose: 125 mls/hr Vancomycin HCl 1,000 mg/ (Sodium Chloride) 250 mls @ 166.667 mls/hr IVPB Q24H [facility] Last Admin: 04/27/18 16:17 Dose: 166.667 mls/hr Piperacillin Sod/Tazobactam (Sod 3.375 gm/ Sodium Chloride) 100 mls @ 25 mls/ hr IVPB Q8H [facility] Last Admin: 04/28/18 12:58 Dose: 25 mls/hr Insulin Human Lispro (Humalog*) 0 units SUBCUT AC [facility]; Protocol Last Admin: 04/28/18 13:26 Dose: 1 unit Levothyroxine Sodium (Synthroid Tab*) 100 mcg PO DAILY@0600 [facility] Last Admin: 04/28/18 05:45 Dose: 100 mcg Melatonin (Melatonin) 3 mg PO BEDTIME PRN PRN Reason: SLEEP Metoprolol Succinate (Toprol Xl Tab*) 50 mg PO DAILY [facility] Last Admin: 04/28/18 08:38 Dose: 50 mg Morphine Sulfate (Morphine Vial*) 1 mg IV Q4H PRN PRN Reason: PAIN - MILD Last Admin: 04/27/18 02:46 Dose: 1 mg Omeprazole (Prilosec Cap*) 20 mg PO DAILY@0600 [facility] Last Admin: 04/28/18 05:45 Dose: 20 mg Ondansetron HCl (Zofran Inj*) 4 mg IV Q4H PRN PRN Reason: NAUSEA/VOMITING Last Admin: 04/27/18 02:46 Dose: 4 mg Oxycodone HCl (Roxycodone Tab*) 5 mg PO Q4H PRN PRN Reason: PAIN Pharmacy Consult (Vancomycin Per Pharmacy*) 1 note FOLLOW UP . PRN PRN Reason: PER PROTOCOL Pharmacy Profile Note (Vancomycin Trough Check) 1 note FOLLOW UP .ENTER TIME ONE Stop: 04/29/18 14:31 Senna (Senokot Tab*) 1 tab PO BID PRN PRN Reason: CONSTIPATION Vital Signs - 8 hr 04/28/18 04/28/18 04/28/18 08:36 08:38 13:28 Temperature 98.4 F Pulse Rate 87 Respiratory 16 16 16 Rate Blood Pressure 110/53 (mmHg) O2 Sat by Pulse 92 Oximetry Oxygen Devices in Use Now: None Appearance: Patient is an 88yo male who appears stated age and is sitting in the bed in [facility]. Eyes: No Scleral Icterus, PERRLA Ears/Nose/Mouth/Throat: NL Teeth, Lips, Gums, Clear Oropharnyx, Mucous Membranes Moist Neck: NL Appearance and Movements; NL JVP, Trachea Midline Respiratory: Symmetrical Chest Expansion and Respiratory Effort, Clear to Auscultation Cardiovascular: NL Sounds; No Murmurs; No JVD, RRR, No Edema Abdominal: No Hepatosplenomegaly, - - tenderness to palpation in RLQ without rebound or guarding. Negative Thomas's sign. Lymphatic: No Cervical Adenopathy Extremities: No Edema, No Clubbing, Cyanosis Skin: No Rash or Ulcers, No Nodules or Sclerosis Neurological: Alert and Oriented x 3, NL Sensation, NL Muscle Strength and Tone , - - CN II-XII intact. Poor remote memory. Result Diagrams: 04/28/18 06:07 04/28/18 06:07 Additional Lab and Data: Lab Results Microbiology and Other Data: Microbiology 04/27/18 03:29 Nasal Screen MRSA (PCR) - Final Nasal Mrsa Detected 04/27/18 03:30 Influenza Types A,B Antigen - Final Nasopharyngeal Specimen received for Influenza A/B Molecular testing Assess/Plan/Problems-Billing Assessment: Patient is an 88yo male with a PMH for Recurrent UTI, Renal Calculi, HFrEF, Prosthetic Heart Valve with recent enterococcus endocarditis who presents with urinary symptoms and altered mental status consistent with UTI. - Patient Problems (1) UTI (urinary tract infection) Current Visit: No Status: Acute Comment: - Positive UTI with urinary symptoms and CVA tenderness possibly indicating pyelonephritis. - Urine culture shows no bactrial growth. Blood Cultures positive for Pseudomonas, likely urinary source. - Zosyn to cover Pseudomonas and Enterococcus - ID consult pending - JUAN Monday to rule out colonization of prosthetic heart valve. - Renal stone discussed with Dr. Ac of urology and too small to be a nidus of infection. - Bladder scans show adequate emptying of the bladder. (2) Altered mental status Current Visit: No Status: Acute Code(s): R41.82 - ALTERED MENTAL STATUS, UNSPECIFIED SNOMED Code(s): 133994377 Comment: - Confused per nursing staff at [place]. - Mild Dementia - Likely Toxic Metabolic Encephalopathy due to UTI or other infection - Improving with Fluids and Antibiotics. - At baseline per this Author's previous experience. (3) Atrial fibrillation Current Visit: No Status: Acute Code(s): I48.91 - UNSPECIFIED ATRIAL FIBRILLATION SNOMED Code(s): 50315596 Comment: - Paroxysmal, currently in regular rhythm on exam - Continue Eliquis, metoprolol and Digoxin - No signs of recurrence. (4) Diabetes Current Visit: No Status: Acute Code(s): E11.9 - TYPE 2 DIABETES MELLITUS WITHOUT COMPLICATIONS SNOMED Code(s): 29565597 Comment: - BGs Slightly elevated - Continue BG AC with Lispro SSI coverage with meals. - Start and increase scheduled mealtime insulin based on Sliding scale results. - Hold Metformin and resume at discharge. - A1c excellent at 5.2 (5) Hypothyroid Current Visit: No Status: Acute Code(s): E03.9 - HYPOTHYROIDISM, UNSPECIFIED SNOMED Code(s): 49141299 Comment: - Continue synthroid daily (6) HFrEF (heart failure with reduced ejection fraction) Current Visit: Yes Status: Acute Code(s): I50.20 - UNSPECIFIED SYSTOLIC ( CONGESTIVE) HEART FAILURE SNOMED Code(s): 903755783 Comment: - EF 40-45% on recent Echo - No signs of fluid overload - Use fluids cautiously. (7) DNR (do not resuscitate) Current Visit: No Status: Acute Comment: (8) DVT prophylaxis Current Visit: No Status: Acute Code(s): OUF4111 - SNOMED Code(s): 204590173 Comment: - Eliquis Status and Disposition: Inpatient for IV antibiotics due to bacteremia and to rule out Prosthetic Valve Endocarditis.
[2018-04-28] MEDS: Vancomycin(*) 1,000 MG in NS 0.9% 250 ML* 250 ML IVPB SCH (16:04)
[2018-04-28] MEDS: Atorvastatin* 10 MG TAB PO SCH (16:27)
[2018-04-28] MEDS: Digoxin TAB* 0.125 MG PO SCH (16:28)
[2018-04-29] MEDS: Levothyroxine TAB* 100 MCG TAB PO SCH (04:59)
[2018-04-29] MEDS: Piperacillin/Tazobac ADVAN(*) 3.375 GM in NS 0.9% 100 ML* 100 ML IVPB SCH ×3 (04:59→21:45)
[2018-04-29] MEDS: Omeprazole CAP* 20 MG PO SCH (04:59)
[2018-04-29 06:13] LABS: Hematocrit 31 % (42-52); Hemoglobin 10.2 g/dl (14.0-18.0); Mean Corpuscular HGB Conc 32 g/dl (31-36); Mean Corpuscular Hemoglobin 33 pg (27-31); Mean Corpuscular Volume 101 fL (80-94); Mean Platelet Volume 11.5 fL (7.4-10.4); Platelet Count 167 10^3/ul (150-450); Red Cell Distribution Width 17 % (10.5-15); White Blood Count 8.9 10^3/ul (3.5-10.8)
[2018-04-29 06:22] LABS: EGFR Non-African American 51.8 (>60)
[2018-04-29 06:57] LABS: ABS Basophils 0.1 10^3/ul (0-0.2); ABS Eosinophils 0 10^3/ul (0-0.6); ABS Lymphocytes 1.9 10^3/ul (1.0-4.8); ABS Monocytes 0.8 10^3/ul (0-0.8); ABS Neutrophils 6.1 10^3/ul (1.5-7.7); ABS Nucleated RBC 0.1 10^3/ul
[2018-04-29 07:00] LABS: Monocytes % 7 % (0-7)
--- NOTE | 2018-04-29 08:36 | PN ---
Subjective Date of Service: 04/29/18 Interval History: Patient complains of persistent but slightly decreased abdominal pain. Patient states it is unaffected by movement and is about a 3-4 at rest. Patient states it feels worse with belching and is reproducible with palpation and with CVA percussion. Patient denies F/C, N/V, abdominal pain, diarrhea, CP, SOB. Patient had a large non-bloody bowel movement this AM without relief in his abdominal pain. Discussed and reinforced the care plan with the patient who states understanding. Family History: Unchanged from Admission Social History: Unchanged from Admission Past Medical History: Unchanged from Admission Objective Active Medications: Acetaminophen (Tylenol Tab*) 650 mg PO Q4H PRN PRN Reason: FEVER/PAIN Last Admin: 04/27/18 16:10 Dose: 650 mg Apixaban (Eliquis*) 2.5 mg PO BID [facility] Last Admin: 04/28/18 20:38 Dose: 2.5 mg Atorvastatin Calcium (Lipitor*) 10 mg PO 1700 [facility] Last Admin: 04/28/18 16:27 Dose: 10 mg Dextrose (D50w Syringe 50 Ml*) 12.5 gm IV PUSH .FOR FS < 60 - SS PRN PRN Reason: FS < 60 Digoxin (Lanoxin Tab*) 0.125 mg PO 1700 [facility] Last Admin: 04/28/18 16:28 Dose: 0.125 mg Docusate Sodium (Colace Cap*) 100 mg PO BID PRN PRN Reason: CONSTIPATION Last Admin: 04/29/18 05:25 Dose: 100 mg Gabapentin (Neurontin Cap(*)) 100 mg PO BID [facility] Last Admin: 04/28/18 20:38 Dose: 100 mg Piperacillin Sod/Tazobactam (Sod 3.375 gm/ Sodium Chloride) 100 mls @ 25 mls/ hr IVPB Q8H [facility] Last Admin: 04/29/18 04:59 Dose: 25 mls/hr Insulin Human Lispro (Humalog*) 0 units SUBCUT [facility]; Protocol Last Admin: 04/28/18 20:39 Dose: 1 unit Levothyroxine Sodium (Synthroid Tab*) 100 mcg PO DAILY@0600 [facility] Last Admin: 04/29/18 04:59 Dose: 100 mcg Melatonin (Melatonin) 3 mg PO BEDTIME PRN PRN Reason: SLEEP Metoprolol Succinate (Toprol Xl Tab*) 50 mg PO DAILY [facility] Last Admin: 04/28/18 08:38 Dose: 50 mg Morphine Sulfate (Morphine Vial*) 1 mg IV Q4H PRN PRN Reason: PAIN - MILD Last Admin: 04/27/18 02:46 Dose: 1 mg Omeprazole (Prilosec Cap*) 20 mg PO DAILY@0600 [facility] Last Admin: 04/29/18 04:59 Dose: 20 mg Ondansetron HCl (Zofran Inj*) 4 mg IV Q4H PRN PRN Reason: NAUSEA/VOMITING Last Admin: 04/27/18 02:46 Dose: 4 mg Oxycodone HCl (Roxycodone Tab*) 5 mg PO Q4H PRN PRN Reason: PAIN Pharmacy Profile Note (Vancomycin Trough Check) 1 note FOLLOW UP .ENTER TIME ONE Stop: 04/29/18 14:31 Senna (Senokot Tab*) 1 tab PO BID PRN PRN Reason: CONSTIPATION Vital Signs - 8 hr 04/29/18 04/29/18 02:51 03:33 Temperature 98.6 F 98.6 F Pulse Rate 88 88 Respiratory 24 24 Rate Blood Pressure 110/50 110/50 (mmHg) O2 Sat by Pulse 93 93 Oximetry Oxygen Devices in Use Now: None Appearance: Patient is an 88yo male who appears stated age and is sitting in the bed in [facility]. Eyes: No Scleral Icterus, PERRLA Ears/Nose/Mouth/Throat: NL Teeth, Lips, Gums, Clear Oropharnyx, Mucous Membranes Moist Neck: NL Appearance and Movements; NL JVP, Trachea Midline Respiratory: Symmetrical Chest Expansion and Respiratory Effort, Clear to Auscultation Cardiovascular: NL Sounds; No Murmurs; No JVD, RRR, No Edema Abdominal: No Hepatosplenomegaly, - - Tender to palpation over the RLQ. No rebound or guarding, unchanged fomr previous exam. Lymphatic: No Cervical Adenopathy Extremities: No Edema, No Clubbing, Cyanosis Skin: No Rash or Ulcers, No Nodules or Sclerosis Neurological: Alert and Oriented x 3, NL Sensation, - - CN II-XII intact. 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 - Patient Problems (1) UTI (urinary tract infection) Current Visit: No Status: Acute Comment: - Positive UTI with urinary symptoms and CVA tenderness possibly indicating pyelonephritis. - Urine culture shows no bacterial growth. Lzi likely contaminant - Blood Cultures positive for Pseudomonas, likely urinary source. - Zosyn to cover Pseudomonas and Enterococcus. Pseudomonas Isolate is susceptible. - ID consult pending - JUAN Monday to rule out colonization of prosthetic heart valve. - Renal stone discussed with Dr. Ac of urology and too small to be a nidus of infection. - Bladder scans show adequate emptying of the bladder. (2) Altered mental status Current Visit: No Status: Acute Code(s): R41.82 - ALTERED MENTAL STATUS, UNSPECIFIED SNOMED Code(s): 699844963 Comment: - Confused per nursing staff at [place]. - Mild Dementia - Likely Toxic Metabolic Encephalopathy due to UTI or other infection - Improving with Fluids and Antibiotics. - At baseline per this Author's previous experience. (3) Atrial fibrillation Current Visit: No Status: Acute Code(s): I48.91 - UNSPECIFIED ATRIAL FIBRILLATION SNOMED Code(s): 62196703 Comment: - Paroxysmal, currently in regular rhythm on exam - Continue Eliquis, metoprolol and Digoxin - No signs of recurrence. (4) Diabetes Current Visit: No Status: Acute Code(s): E11.9 - TYPE 2 DIABETES MELLITUS WITHOUT COMPLICATIONS SNOMED Code(s): 30471806 Comment: - BGs Slightly elevated - Continue BG AC with Lispro SSI coverage with meals. - Start and increase scheduled mealtime insulin based on Sliding scale results. - Hold Metformin and resume at discharge. - A1c excellent at 5.2 (5) Hypothyroid Current Visit: No Status: Acute Code(s): E03.9 - HYPOTHYROIDISM, UNSPECIFIED SNOMED Code(s): 53915995 Comment: - Continue synthroid daily (6) Transaminitis Current Visit: Yes Status: Acute Code(s): R74.0 - NONSPEC ELEV OF LEVELS OF TRANSAMNS & LACTIC ACID DEHYDRGNSE SNOMED Code(s): 801557462 Comment: - Likely due to transient low BP in the setting of infection. - Rapid improvement, almost normalized. - GB pathology not shown on US, possible passed stone but unlikely. Negative Thomas's sign. - Acute viral hepatitis panel negative - Possible viral infection - No new medications prior to admission - No sign of abscess on CT A/P with contrast. (7) HFrEF (heart failure with reduced ejection fraction) Current Visit: Yes Status: Acute Code(s): I50.20 - UNSPECIFIED SYSTOLIC ( CONGESTIVE) HEART FAILURE SNOMED Code(s): 108061036 Comment: - EF 40-45% on recent Echo - No signs of fluid overload - Use fluids cautiously. (8) DNR (do not resuscitate) Current Visit: No Status: Acute Comment: (9) DVT prophylaxis Current Visit: No Status: Acute Code(s): YRN9121 - SNOMED Code(s): 517259011 Comment: - Eliquis Status and Disposition: Inpatient for IV antibiotics due to bacteremia and to rule out Prosthetic Valve Endocarditis.
[2018-04-29] MEDS: Insulin LISPRO* 1 UNITS UNIT SUBCUT SCH ×3 (10:17→19:29)
[2018-04-29] MEDS: Apixaban* 2.5 MG TAB PO SCH ×2 (10:18→21:44)
[2018-04-29] MEDS: Gabapentin CAP(*) 100 MG PO SCH ×2 (10:18→21:44)
[2018-04-29] MEDS: Metoprolol Succinate XL TAB* 50 MG PO SCH (10:19)
[2018-04-29] MEDS ORDERED: Vancomycin Trough Check NOTE FOLLOW UP ONE (14:30)
[2018-04-29] MEDS: Atorvastatin* 10 MG TAB PO SCH (18:20)
[2018-04-29] MEDS: Digoxin TAB* 0.125 MG PO SCH (18:21)
[2018-04-30] MEDS: Omeprazole CAP* 20 MG PO SCH (05:23)
[2018-04-30] MEDS: Piperacillin/Tazobac ADVAN(*) 3.375 GM in NS 0.9% 100 ML* 100 ML IVPB SCH ×3 (05:23→20:58)
[2018-04-30] MEDS: Levothyroxine TAB* 100 MCG TAB PO SCH (05:23)
[2018-04-30 05:59] LABS: Hematocrit 30 % (42-52); Hemoglobin 9.7 g/dl (14.0-18.0); Mean Corpuscular HGB Conc 32 g/dl (31-36); Mean Corpuscular Hemoglobin 33 pg (27-31); Mean Corpuscular Volume 102 fL (80-94); Mean Platelet Volume 11.4 fL (7.4-10.4); Platelet Count 224 10^3/ul (150-450); Red Blood Count 2.97 10^6/ul (4.00-5.40); Red Cell Distribution Width 17 % (10.5-15); White Blood Count 8.4 10^3/ul (3.5-10.8)
[2018-04-30 06:18] LABS: ABS Basophils 0.1 10^3/ul (0-0.2); ABS Eosinophils 0 10^3/ul (0-0.6); ABS Lymphocytes 2.1 10^3/ul (1.0-4.8); ABS Monocytes 0.9 10^3/ul (0-0.8); ABS Neutrophils 5.3 10^3/ul (1.5-7.7); ABS Nucleated RBC 0.1 10^3/ul
[2018-04-30 06:20] LABS: Monocytes % 10 % (0-7)
[2018-04-30 06:23] LABS: ABS Basophils 0.1 10^3/ul (0-0.2); EGFR Non-African American 55.7 (>60)
[2018-04-30] MEDS ORDERED: Midazolam* 1 MG/ML 10 ML VIAL (10 MG) ONE (08:06)
[2018-04-30] MEDS ORDERED: fentaNYL* 50 MCG/ML 2 ML VIAL (100 MCG VIAL) ONE (08:06)
[2018-04-30] MEDS ORDERED: Naloxone* 0.4 MG/ML 1 ML VIAL ONE (08:06)
[2018-04-30] MEDS ORDERED: Flumazenil* 0.1 MG/ML 5 ML MDV ONE (08:07)
[2018-04-30] MEDS ORDERED: Lidocaine 2% VISCOUS* 15 ML UDC ONE (09:30)
[2018-04-30] MEDS: Insulin LISPRO* 1 UNITS UNIT SUBCUT SCH ×3 (10:45→19:19)
--- NOTE | 2018-04-30 11:02 | TEE ---
Patient: DEEPAK DOWNEY [facility] Rec#: [id number] : 1930 Date: 04/30/2018 Age: 88y Height: 173 cm / 68.1 in Weight: 59 kg / 130.0 lbs Sex: M BSA: 1.7 Room#: 403 Admit Date#: 04/27/2018 Type: Inpatient Referring: Cristino Costa Performing: Kian Prtat DO Reading: Kian Pratt DO Portable Pinch Riveter: Cecily Steele RD,RDMS Nurse: Teja Velasquze Transesophageal Echocardiogram Indication: Bacteremia BP: 124/84 HR: 87 Rhythm: NSR Findings History: CAD, CABG, HTN, DM, CVA, TIS, MVR (#25 Carrillo), AFIB, endocarditis, bacteremia Technical Comments: The study quality is good. Left Ventricle: The left ventricular chamber size is normal. There is mildly decreased left ventricular systolic function. The estimated ejection fraction is 45-50%. The assessment of diastolic function is non-diagnostic. Left Atrium: The left atrium is moderately dilated. There is no thrombus visualized in the left atrial appendage. Right Ventricle: The right ventricle is mildly dilated. The right ventricular global systolic function is mildly reduced. Right Atrium: The right atrial cavity size is normal. The interatrial septum appears lipomatous. A patent foramen ovale is not demonstrated by color Doppler. Aortic Valve: The aortic valve is trileaflet. The aortic valve leaflets are mildly thickened. There is a trace of aortic regurgitation. There is no evidence of aortic stenosis. There is no aortic vegetation present. Mitral Valve: There is mild to moderate mitral regurgitation. There is no evidence of mitral stenosis.Valve appears to open well. Mean gradient of 8 mmHg in sinus rhythm 90 bpm stable from 07/2017 and 08/2017 JUAN's A bioprosthetic mitral valve is present. #25 mm Carrillo Magnaease bovine. There is thickening of the prosthetic leaflet tips with very small mobile highly echodense abnormality with appearance of chronicity best appreciated image 11, 14, 26,29, 31. It does not appear to be a suture. Tricuspid Valve: The tricuspid valve leaflets are normal. There is mild tricuspid regurgitation. No vegetation is observed on the tricuspid valve. Pulmonic Valve: The pulmonic valve appears normal. There is a trace pulmonic regurgitation. No vegetation is observed on the pulmonic valve. Pericardium: There is no significant pericardial effusion. Aorta: The aortic root appears normal. There is plaque visualized in the transverse aorta.severely calcified and sessile Pulmonary Artery: The main pulmonary artery appears normal. Venous: The inferior vena cava appears normal. The flow pattern of the pulmonary veins appear normal. The superior vena cava appears normal. JUAN Procedures: All standard views were attempted within the limitations of patient tolerance and safety. History and physical as well as labs were reviewed. The patient was in a fasting state. Risks and benefits of the procedure, including alternatives, were discussed and written informed consent was obtained. The patient and/or their health care patient services representative expressed understanding of the procedure, risks and benefits. Baseline and continuous monitoring of blood pressure, heart rate, pulse oximetry and heart rhythm was performed throughout the procedure. The appropriate time-out procedure was performed as per [facility] protocol. The patient was placed in the left lateral decubitus position. The patient's posterior pharynx was anesthetized with 20ml of 2% viscous lidocaine. The patient received IV Midazolam with a total dose of 7 mg. The patient received IV Fentanyl with a total dose of 50 mcg. An oral bite block was inserted for protection of oral dentition. The multiplane transesophageal echocardiogram probe was inserted through the posterior oropharynx and advanced into the esophagus without difficulty. Multiple 2D images were obtained of the heart and its related structures. Color flow Doppler was used for evaluation. Spectral Doppler was also used. The atrial septum was interrogated with color flow Doppler. At the conclusion of the procedure the probe was removed with continuous suction without complications. Conclusions There is mildly decreased left ventricular systolic function. The left atrium is moderately dilated. The right ventricle is mildly dilated. The right ventricular global systolic function is mildly reduced. There is no aortic vegetation present. A bioprosthetic mitral valve is present with abnormalities as within report. The visualized abnormality has the appearance of either remote endocarditis (enterococcus from earlier this year) or degenerative changes. There is no significant obstruction and the intravalvular regurgitation appears similar to the JUAN from 07/2017. These present findings are unlikely to be related to acute pseudomonas endocarditis. Measurements Name Value Normal Range Aortic Annulus 1.7 cm (1.4 - 2.6) Ao root diameter (2D) 3.1 cm (2.1 - 3.5) Ascending Ao 3 cm (2.1 - 3.4) Name Value Normal Range MV E-wave Vmax 1.7 m/sec - MV deceleration time 216 msec - MV A-wave Vmax 1.7 m/sec - MV E:A ratio 1 ratio - Name Value Normal Range MV Vmax 1.8 m/sec - MV VTI 53 cm - MV peak gradient 13 mmHg - MV mean gradient 8 mmHg - MV PHT 115 msec - MR Vmax 6.2 m/sec - MR VTI 178 cm - MVA (PHT) 1.9 cm2 -
[2018-04-30] MEDS: Gabapentin CAP(*) 100 MG PO SCH ×2 (14:38→20:58)
[2018-04-30] MEDS: Metoprolol Succinate XL TAB* 50 MG PO SCH (14:39)
[2018-04-30] MEDS: Apixaban* 2.5 MG TAB PO SCH ×2 (14:40→20:58)
--- NOTE | 2018-04-30 15:09 | PN ---
Subjective Date of Service: 04/30/18 Interval History: patient reports he feels a little better today but has LLQ discomfort that today he reports to be a little better. He denies any fever or chills. No N/V/ D. He denies SOB/CP. Underwent JUAN this am - denies feeling sedated, no sore throat. Family History: Unchanged from Admission Social History: Unchanged from Admission Past Medical History: Unchanged from Admission Objective Active Medications: Acetaminophen (Tylenol Tab*) 650 mg PO Q4H PRN PRN Reason: FEVER/PAIN Last Admin: 04/27/18 16:10 Dose: 650 mg Apixaban (Eliquis*) 2.5 mg PO BID [facility] Last Admin: 04/30/18 14:40 Dose: 2.5 mg Atorvastatin Calcium (Lipitor*) 10 mg PO 1700 [facility] Last Admin: 04/29/18 18:20 Dose: 10 mg Dextrose (D50w Syringe 50 Ml*) 12.5 gm IV PUSH .FOR FS < 60 - SS PRN PRN Reason: FS < 60 Digoxin (Lanoxin Tab*) 0.125 mg PO 1700 [facility] Last Admin: 04/29/18 18:21 Dose: 0.125 mg Docusate Sodium (Colace Cap*) 100 mg PO BID PRN PRN Reason: CONSTIPATION Last Admin: 04/29/18 05:25 Dose: 100 mg Gabapentin (Neurontin Cap(*)) 100 mg PO BID [facility] Last Admin: 04/30/18 14:38 Dose: 100 mg Piperacillin Sod/Tazobactam (Sod 3.375 gm/ Sodium Chloride) 100 mls @ 25 mls/ hr IVPB Q8H [facility] Last Admin: 04/30/18 14:35 Dose: 25 mls/hr Insulin Human Lispro (Humalog*) 0 units SUBCUT AC [facility]; Protocol Last Admin: 04/30/18 14:35 Dose: 4 unit Levothyroxine Sodium (Synthroid Tab*) 100 mcg PO DAILY@0600 [facility] Last Admin: 04/30/18 05:23 Dose: 100 mcg Melatonin (Melatonin) 3 mg PO BEDTIME PRN PRN Reason: SLEEP Metoprolol Succinate (Toprol Xl Tab*) 50 mg PO DAILY [facility] Last Admin: 04/30/18 14:39 Dose: 50 mg Morphine Sulfate (Morphine Vial*) 1 mg IV Q4H PRN PRN Reason: PAIN - MILD Last Admin: 04/27/18 02:46 Dose: 1 mg Omeprazole (Prilosec Cap*) 20 mg PO DAILY@0600 [facility] Last Admin: 04/30/18 05:23 Dose: 20 mg Ondansetron HCl (Zofran Inj*) 4 mg IV Q4H PRN PRN Reason: NAUSEA/VOMITING Last Admin: 04/27/18 02:46 Dose: 4 mg Oxycodone HCl (Roxycodone Tab*) 5 mg PO Q4H PRN PRN Reason: PAIN Senna (Senokot Tab*) 1 tab PO BID PRN PRN Reason: CONSTIPATION Vital Signs - 8 hr 04/30/18 04/30/18 07:40 14:38 Temperature 98.5 F Pulse Rate 81 Respiratory 16 16 Rate Blood Pressure 123/48 (mmHg) O2 Sat by Pulse 94 Oximetry Oxygen Devices in Use Now: None Appearance: 88 yo male sitting up in bed A+O x3 in NAD Eyes: No Scleral Icterus, PERRLA Ears/Nose/Mouth/Throat: NL Teeth, Lips, Gums, Mucous Membranes Moist Neck: NL Appearance and Movements; NL JVP Respiratory: Symmetrical Chest Expansion and Respiratory Effort, Clear to Auscultation Cardiovascular: RRR Abdominal: NL Sounds; No Tenderness; No Distention Extremities: No Clubbing, Cyanosis Skin: No Rash or Ulcers, No Nodules or Sclerosis Neurological: Alert and Oriented x 3, NL Sensation, NL Muscle Strength and Tone Lines/Tubes/Other Access: Clean, Dry and Intact Peripheral IV Nutrition: Taking PO's Result Diagrams: 04/30/18 05:06 04/30/18 05:06 Additional Lab and Data: Lab Results Microbiology and Other Data: Microbiology 04/27/18 03:29 Nasal Screen MRSA (PCR) - Final Nasal Mrsa Detected 04/27/18 03:30 Influenza Types A,B Antigen - Final Nasopharyngeal Specimen received for Influenza A/B Molecular testing Assess/Plan/Problems-Billing Assessment: Patient is an 88yo male with a PMH for Recurrent UTI, Renal Calculi, HFrEF, 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 - Patient Problems (1) Bacteremia Comment: - Blood Cultures positive for Pseudomonas, likely urinary source. 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 Liz likely contaminant - Blood Cultures positive for Pseudomonas, likely urinary source. - Zosyn to cover Pseudomonas and Enterococcus. Pseudomonas Isolate is susceptible. - JUAN today - visualized abnormality noted on bioprosthetic mitral valve but thought to be remote endocarditis or degenerative changes - unlikely acute endocarditis per cardiology read. - Cristino QUIÑONEZ discussed renal stone with Dr. Ac of urology and too small to be a nidus of infection. - Bladder scans show adequate emptying of the bladder. (3) Transaminitis Comment: - Likely due to transient low BP in the setting of infection - trending down and normalizing. - GB pathology not shown on US, possible passed stone but unlikely. - Acute viral hepatitis panel negative - Possible viral infection - No new medications prior to admission - No sign of abscess on CT A/P with contrast. (4) HFrEF (heart failure with reduced ejection fraction) Comment: - EF 40-45% on recent Echo - No signs of fluid overload - Use fluids cautiously. (5) Diabetes Comment: - BGs controlled - Continue BG AC with Lispro SSI coverage with meals. - Hold Metformin and resume at discharge. - A1c excellent at 5.2 (6) Hypothyroid Comment: - Continue synthroid daily (7) DNR (do not resuscitate) Comment: (8) DVT prophylaxis Comment: - Ernst (9) Full code status Comment: Status and Disposition: Inpatient for IV antibiotics due to bacteremia
[2018-04-30] MEDS: Digoxin TAB* 0.125 MG PO SCH (19:25)
[2018-04-30] MEDS: Atorvastatin* 10 MG TAB PO SCH (19:25)
[2018-05-01] MEDS: Piperacillin/Tazobac ADVAN(*) 3.375 GM in NS 0.9% 100 ML* 100 ML IVPB SCH ×2 (05:44→13:59)
[2018-05-01] MEDS: Levothyroxine TAB* 100 MCG TAB PO SCH (05:45)
[2018-05-01] MEDS: Omeprazole CAP* 20 MG PO SCH (05:45)
[2018-05-01] MEDS: Insulin LISPRO* 1 UNITS UNIT SUBCUT SCH ×3 (10:18→22:39)
[2018-05-01] MEDS: Apixaban* 2.5 MG TAB PO SCH ×2 (10:20→22:36)
[2018-05-01] MEDS: Metoprolol Succinate XL TAB* 50 MG PO SCH (10:20)
[2018-05-01] MEDS: Gabapentin CAP(*) 100 MG PO SCH ×2 (10:22→22:36)
[2018-05-01 10:52] LABS: EGFR Non-African American 62.7 (>60)
[2018-05-01 11:17] LABS: Hematocrit 29 % (42-52); Hemoglobin 9.3 g/dl (14.0-18.0); Mean Corpuscular HGB Conc 32 g/dl (31-36); Mean Corpuscular Hemoglobin 32 pg (27-31); Mean Corpuscular Volume 101 fL (80-94); Mean Platelet Volume 10.7 fL (7.4-10.4); Platelet Count 287 10^3/ul (150-450); Red Blood Count 2.88 10^6/ul (4.00-5.40); Red Cell Distribution Width 16 % (10.5-15); White Blood Count 7.2 10^3/ul (3.5-10.8)
[2018-05-01 11:23] LABS: Monocytes % 7 % (0-7)
[2018-05-01 11:25] LABS: ABS Neutrophils 4.9 10^3/ul (1.5-7.7)
[2018-05-01 11:26] LABS: ABS Basophils 0.07 10^3/ul (0-0.2)
--- NOTE | 2018-05-01 12:02 | PN ---
Subjective Date of Service: 05/01/18 Interval History: Pt reports he is feeling well today. Denies SOB/CP. No fevers or chills. Reports he feels steady on his feet with use of his walker. Reports good appetite. Pt reports Left mid quad tenderness he has had a long that is intermittent Family History: Unchanged from Admission Social History: Unchanged from Admission Past Medical History: Unchanged from Admission Objective Active Medications: Acetaminophen (Tylenol Tab*) 650 mg PO Q4H PRN PRN Reason: FEVER/PAIN Last Admin: 04/27/18 16:10 Dose: 650 mg Apixaban (Eliquis*) 2.5 mg PO BID [facility] Last Admin: 05/01/18 10:20 Dose: 2.5 mg Atorvastatin Calcium (Lipitor*) 10 mg PO 1700 [facility] Last Admin: 04/30/18 19:25 Dose: 10 mg Dextrose (D50w Syringe 50 Ml*) 12.5 gm IV PUSH .FOR FS < 60 - SS PRN PRN Reason: FS < 60 Digoxin (Lanoxin Tab*) 0.125 mg PO 1700 [facility] Last Admin: 04/30/18 19:25 Dose: 0.125 mg Docusate Sodium (Colace Cap*) 100 mg PO BID PRN PRN Reason: CONSTIPATION Last Admin: 04/29/18 05:25 Dose: 100 mg Gabapentin (Neurontin Cap(*)) 100 mg PO BID [facility] Last Admin: 05/01/18 10:22 Dose: 100 mg Piperacillin Sod/Tazobactam (Sod 3.375 gm/ Sodium Chloride) 100 mls @ 25 mls/ hr IVPB Q8H [facility] Last Admin: 05/01/18 05:44 Dose: 25 mls/hr Insulin Human Lispro (Humalog*) 0 units SUBCUT [facility]; Protocol Last Admin: 05/01/18 10:18 Dose: 3 unit Levothyroxine Sodium (Synthroid Tab*) 100 mcg PO DAILY@0600 [facility] Last Admin: 05/01/18 05:45 Dose: 100 mcg Melatonin (Melatonin) 3 mg PO BEDTIME PRN PRN Reason: SLEEP Metoprolol Succinate (Toprol Xl Tab*) 50 mg PO DAILY [facility] Last Admin: 05/01/18 10:20 Dose: 50 mg Morphine Sulfate (Morphine Vial*) 1 mg IV Q4H PRN PRN Reason: PAIN - MILD Last Admin: 04/27/18 02:46 Dose: 1 mg Omeprazole (Prilosec Cap*) 20 mg PO DAILY@0600 [facility] Last Admin: 05/01/18 05:45 Dose: 20 mg Ondansetron HCl (Zofran Inj*) 4 mg IV Q4H PRN PRN Reason: NAUSEA/VOMITING Last Admin: 04/27/18 02:46 Dose: 4 mg Oxycodone HCl (Roxycodone Tab*) 5 mg PO Q4H PRN PRN Reason: PAIN Senna (Senokot Tab*) 1 tab PO BID PRN PRN Reason: CONSTIPATION Vital Signs - 8 hr 05/01/18 05/01/18 05/01/18 07:41 08:00 10:22 Temperature 98.9 F Pulse Rate 73 Respiratory 16 16 17 Rate Blood Pressure 133/59 (mmHg) O2 Sat by Pulse 93 Oximetry Oxygen Devices in Use Now: None Appearance: elderly male A+Ox3 sitting up in a chair in NAD Eyes: No Scleral Icterus, PERRLA Ears/Nose/Mouth/Throat: NL Teeth, Lips, Gums, Mucous Membranes Moist Neck: NL Appearance and Movements; NL JVP Respiratory: Symmetrical Chest Expansion and Respiratory Effort, Clear to Auscultation Cardiovascular: RRR, No Edema Abdominal: NL Sounds; No Tenderness; No Distention, - - No CVA tenderness. No guarding or pain/tenderness illicated on exam Extremities: No Edema Neurological: Alert and Oriented x 3, NL Sensation, NL Gait - with walker, NL Muscle Strength and Tone Lines/Tubes/Other Access: Clean, Dry and Intact Peripheral IV Nutrition: Taking PO's Result Diagrams: 05/01/18 10:16 05/01/18 10:16 Additional Lab and Data: Lab Results Microbiology and Other Data: Microbiology 04/27/18 03:29 Nasal Screen MRSA (PCR) - Final Nasal Mrsa Detected 04/27/18 03:30 Influenza Types A,B Antigen - Final Nasopharyngeal Specimen received for Influenza A/B Molecular testing Assess/Plan/Problems-Billing Assessment: Patient is an 88yo male with a PMH for Recurrent UTI, Renal Calculi, HFrEF, 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 - Patient Problems (1) Bacteremia Comment: - Blood Cultures positive for Pseudomonas, likely urinary source. 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 Liz likely contaminant - Blood Cultures positive for Pseudomonas, likely urinary source. - Zosyn to cover Pseudomonas - JUAN 04/30 - visualized abnormality noted on bioprosthetic mitral valve but thought to be remote endocarditis or degenerative changes - unlikely acute endocarditis per cardiology read. Will discussed with Dr. Rm Sands PA discussed renal stone with Dr. Ac of urology and too small to be a nidus of infection. - Bladder scans show adequate emptying of the bladder. (3) Transaminitis Comment: - Likely due to transient low BP in the setting of infection - trending down and normalizing. - GB pathology not shown on US, possible passed stone but unlikely. - Acute viral hepatitis panel negative - Possible viral infection - No new medications prior to admission - No sign of abscess on CT A/P with contrast. (4) HFrEF (heart failure with reduced ejection fraction) Comment: - EF 40-45% on recent Echo - No signs of fluid overload - Use fluids cautiously. (5) Diabetes Comment: - BGs controlled - Continue BG AC with Lispro SSI coverage with meals. - Hold Metformin and resume at discharge. - A1c excellent at 5.2 (6) Hypothyroid Comment: - Continue synthroid daily (7) DNR (do not resuscitate) Comment: (8) DVT prophylaxis Comment: - Ernst (9) Full code status Comment: Status and Disposition: Inpatient for IV antibiotics due to bacteremia - repeat blood cx sent today - will determine length of abx course
[2018-05-01] MEDS ORDERED: Cefepime 1 GM in Dextrose(*) 1 GM/50 ML BAG IV SCH (17:00)
[2018-05-01] MEDS: Atorvastatin* 10 MG TAB PO SCH (18:01)
[2018-05-01] MEDS: Digoxin TAB* 0.125 MG PO SCH (18:01)
[2018-05-01] MEDS: Cefepime 1 GM in Dextrose(*) 1 GM/50 ML BAG IV SCH (19:35)
[2018-05-01 21:30] LABS: Hematocrit 31 % (42-52); Hemoglobin 9.5 g/dl (14.0-18.0)
--- NOTE | 2018-05-01 23:08 | CONS ---
CONSULTATION REPORT: DATE OF CONSULT: 05/01/18 REQUESTING PROVIDER: OLAMIDE Harper CONSULTING SERVICE: Infectious Disease. REASON FOR CONSULT: Pseudomonas bacteremia. IMPRESSION: 1. Pseudomonas 2 of 4 blood culture bottles on admission in the setting of fever and malaise. 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 2. Transaminitis, right upper quadrant pain. Unremarkable ultrasound of the gallbladder on admission. The CT showed some enlargement. 3. Presence of aortic and mitral valve replacements with bioprosthetic valves. 4. Ureteral stones. RECOMMENDATIONS: 1. Stop Zosyn and start cefepime 1 g IV every 12 hours. Plan on 5 more weeks of it basically total. 2. Ultrasound of the gallbladder and liver. HISTORY OF PRESENT ILLNESS: An 88-year-old man with aortic and mitral valve bioprosthetic valves admitted with malaise, brought in by ambulance after son and people at [place] found him not to be acting himself. He had fever, blood cultures were taken, 2 of 4 growing Pseudomonas. He has been on Zosyn since getting here. He had the esophageal echocardiogram with the results of the above. He has no fevers, chills or sweats today. He has right upper quadrant pain, worse when people press on it, but not with moving around bed. PAST MEDICAL HISTORY: 1. Status post aortic valve and mitral valve replacements, bioprosthetic. 2. Enterococcal aortic valve endocarditis 2017. 3. Type 2 diabetes. 4. Atrial fibrillation. 5. Hydronephrosis and nephrolithiasis and right ureteral stent in the past. 6. Coronary artery disease. 7. Hypothyroidism. 8. Benign prostatic hypertrophy treated with transurethral resection of the prostate. MEDICATIONS: 1. Tylenol. 2. Apixaban. 3. Lipitor. 4. Docusate. 5. Digoxin. 6. Gabapentin. 7. Levothyroxine. 8. Melatonin. 9. Omeprazole. 10. Zosyn. ALLERGIES: No known drug allergies. FAMILY HISTORY: No recurrent infections. SOCIAL HISTORY: Livest at [place], nonsmoker. REVIEW OF SYSTEMS: All negative except as noted above to 14-point review. PHYSICAL EXAM: Vital Signs: Temperature 37, heart rate 90, respiratory rate 16 , blood pressure 143/56, oxygen saturations 97% on room air. In general, he is awake and not in distress. Neurologic: He is oriented x3. Follows all commands. HEENT: There is no conjunctival hemorrhage. Oropharynx without lesions. Neck: Supple without mass. Heart: Regular rate and rhythm without murmurs, rubs or gallops. Lungs: Clear to auscultation bilaterally. Abdomen: Soft. There are bowel sounds present. There is right upper quadrant tenderness to palpation. There is no Thomas's sign. Skin: There is no rash or splinter hemorrhage. Musculoskeletal: There is no spine tenderness to palpation or joint synovitis. DIAGNOSTIC STUDIES/LAB DATA: White blood cell count 7, hemoglobin 9, platelets 287, creatinine 1, CRP 116. Please see impression and recommendations outlined above, which I have discussed with Logan Richards NP. Thank you for asking me to see Mr. Concepcion in consultation. [id number]/CPS #: [id number] MTDGrace
--- NOTE | 2018-05-02 04:48 | PN ---
Hospitalist Progress Note Date of Service: 05/02/18 ctbs due to pt has some bloody urethra d/c with one clot seen on the diaper. estimate blood loss 5 cc but what was concerning was it came on its own pt does not have any rosario. he is 88 yr old but has been on eliquis due to paf. he is also uti but has been on abx ---> will need to call gu for eval since he has not some trace hematuria but one clot seen on diaper
[2018-05-02 07:23] LABS: Hematocrit 30 % (42-52); Hemoglobin 9.6 g/dl (14.0-18.0); Mean Corpuscular HGB Conc 32 g/dl (31-36); Mean Corpuscular Hemoglobin 32 pg (27-31); Mean Corpuscular Volume 100 fL (80-94); Mean Platelet Volume 10.1 fL (7.4-10.4); Platelet Count 304 10^3/ul (150-450); Red Blood Count 2.97 10^6/ul (4.00-5.40); Red Cell Distribution Width 17 % (10.5-15); White Blood Count 9.4 10^3/ul (3.5-10.8)
[2018-05-02 07:33] LABS: EGFR Non-African American 68.3 (>60)
--- NOTE | 2018-05-02 07:37 | PN ---
Hospitalist Progress Note Date of Service: 05/02/18 this law writer called and placed the consult in am still await for carolyn Williamson to get back but called the service second time they placed the request already
[2018-05-02 08:01] LABS: ABS Basophils 0.1 10^3/ul (0-0.2); ABS Eosinophils 0 10^3/ul (0-0.6); ABS Lymphocytes 2.5 10^3/ul (1.0-4.8); ABS Neutrophils 5.8 10^3/ul (1.5-7.7); ABS Nucleated RBC 0.1 10^3/ul; Eosinophil % 0.3 % (0-6); Lymphocyte % 26.2 % (25-47); Nucleated Red Blood Cells % 1.2
[2018-05-02] MEDS: Omeprazole CAP* 20 MG PO SCH (09:33)
[2018-05-02] MEDS: Levothyroxine TAB* 100 MCG TAB PO SCH (09:33)
[2018-05-02] MEDS: Gabapentin CAP(*) 100 MG PO SCH ×2 (09:34→20:19)
[2018-05-02] MEDS: Apixaban* 2.5 MG TAB PO SCH ×2 (09:34→20:33)
[2018-05-02] MEDS: Metoprolol Succinate XL TAB* 50 MG PO SCH (09:34)
[2018-05-02] MEDS: Cefepime 1 GM in Dextrose(*) 1 GM/50 ML BAG IV SCH ×2 (09:47→20:33)
[2018-05-02 10:00] LABS: Urine Appearance Cloudy; Urine Blood 3+ (Negative); Urine Color Yellow; Urine Ketones Negative (Negative); Urine Protein 1+(30 mg/dL) (Negative); Urine Red Blood Cell 3+(>10/hpf) (Absent); Urine Specific Gravity 1.013 (1.010-1.030); Urine Urobilinogen Negative (Negative); Urine White Blood Cell 3+(>20/hpf) (Absent)
[2018-05-02] MEDS: Insulin LISPRO* 1 UNITS UNIT SUBCUT SCH ×3 (10:08→18:36)
--- NOTE | 2018-05-02 12:20 | PN ---
Subjective Date of Service: 05/02/18 Interval History: Mr. Concepcion feels well this morning. He is still c/o RUQ pain, though he denies N /V and is hungry. He has been up ambulating. Denies CP, SOB, diarrhea, dizziness. He is aware of the need for long-term antibiotics and is agreeable. He would like his son to be updated on the test results and plan. Family History: Unchanged from Admission Social History: Unchanged from Admission Past Medical History: Unchanged from Admission Objective Active Medications: Acetaminophen (Tylenol Tab*) 650 mg PO Q4H PRN Apixaban (Eliquis*) 2.5 mg PO BID [facility] Atorvastatin Calcium (Lipitor*) 10 mg PO 1700 [facility] Dextrose (D50w Syringe 50 Ml*) 12.5 gm IV PUSH .FOR FS < 60 - SS PRN Digoxin (Lanoxin Tab*) 0.125 mg PO 1700 [facility] Docusate Sodium (Colace Cap*) 100 mg PO BID PRN Gabapentin (Neurontin Cap(*)) 100 mg PO BID [facility] Cefepime HCl (Maxipime 1 Gm In Dextrose Duplex (*)) 1 gm in 50 mls @ 100 mls/ hr IV 0730,1930 [facility] Insulin Human Lispro (Humalog*) 0 units SUBCUT AC [facility]; Protocol Levothyroxine Sodium (Synthroid Tab*) 100 mcg PO DAILY@0600 [facility] Melatonin (Melatonin) 3 mg PO BEDTIME PRN Metoprolol Succinate (Toprol Xl Tab*) 50 mg PO DAILY [facility] Morphine Sulfate (Morphine Vial*) 1 mg IV Q4H PRN Omeprazole (Prilosec Cap*) 20 mg PO DAILY@0600 [facility] Ondansetron HCl (Zofran Inj*) 4 mg IV Q4H PRN Oxycodone HCl (Roxycodone Tab*) 5 mg PO Q4H PRN Senna (Senokot Tab*) 1 tab PO BID PRN Vital Signs - 8 hr 05/02/18 05/02/18 05/02/18 09:27 09:34 10:00 Temperature 97.7 F Pulse Rate 70 Respiratory 18 16 16 Rate Blood Pressure 145/56 (mmHg) O2 Sat by Pulse 96 Oximetry Oxygen Devices in Use Now: None Appearance: Elderly male sitting in chair in NAD Eyes: No Scleral Icterus Ears/Nose/Mouth/Throat: Mucous Membranes Moist Neck: NL Appearance and Movements; NL JVP Respiratory: Symmetrical Chest Expansion and Respiratory Effort, Clear to Auscultation Cardiovascular: NL Sounds; No Murmurs; No JVD, RRR Abdominal: NL Sounds; No Tenderness; No Distention, - - RUQ pain, but not tender to palpation Extremities: No Edema Skin: No Rash or Ulcers Neurological: Alert and Oriented x 3 Lines/Tubes/Other Access: Clean, Dry and Intact Peripheral IV Nutrition: Taking PO's Result Diagrams: 05/02/18 07:04 05/02/18 07:04 Assess/Plan/Problems-Billing Assessment: Patient is an 88yo male with a PMH for Recurrent UTI, Renal Calculi, HFrEF, 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 - Patient Problems (1) Endocarditis of mitral valve Current Visit: Yes Status: Acute Code(s): I05.8 - OTHER RHEUMATIC MITRAL VALVE DISEASES SNOMED Code(s): 45825677 Comment: - Bioprosthetic valve - JUAN on 04/30 shows mobile density on mitral valve thought to be chronic, but this was not present on JUAN in July so it is likely acute; vegetation earlier this year was on aortic valve - Continue cefepime per ID for a total of 5 weeks; will need PICC (2) Bacteremia due to Pseudomonas Current Visit: Yes Status: Acute Code(s): R78.81 - BACTEREMIA SNOMED Code( s): 2658076 Comment: - Blood Cultures positive for Pseudomonas, likely urinary source - 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 - Repeat blood cx show no growth - Continue cefepime per ID (3) Cholecystitis Current Visit: Yes Status: Acute Code(s): K81.9 - CHOLECYSTITIS, UNSPECIFIED SNOMED Code(s): 50302372 Comment: - GB US shows wall thickening w/ polyps; possible cholecystitis vs malignancy - HIDA shows cystic duct obstruction and acute cholecystitis - Appreciate surgery consult; will likely require treatment with abx as he is not a surgical candidate d/t endocarditis (4) UTI (urinary tract infection) Current Visit: Yes Status: Acute Comment: - Positive UTI with urinary symptoms and initially had CVA tenderness (now resolved) possibly indicating pyelonephritis; no noted hydronephrosis on imaging - Urine culture shows no bacterial growth; ha likely contaminant, though this is likely d/t Psuedomonas based on + BC - JUAN 04/30 visualized abnormality noted on bioprosthetic mitral valve but thought to be remote endocarditis or degenerative changes - Bladder scans show adequate emptying of the bladder - Continue cefepime (5) Transaminitis Current Visit: Yes Status: Acute Code(s): R74.0 - NONSPEC ELEV OF LEVELS OF TRANSAMNS & LACTIC ACID DEHYDRGNSE SNOMED Code(s): 258236058 Comment: - Resolved - Likely due to GB pathology; possible passed stone based on HIDA results - Acute viral hepatitis panel negative (6) Diabetes mellitus type 2, controlled Current Visit: Yes Status: Acute Code(s): E11.9 - TYPE 2 DIABETES MELLITUS WITHOUT COMPLICATIONS SNOMED Code(s): 08287179 Comment: - Continue BG AC with Lispro SSI coverage with meals - A1c excellent at 5.2 - Hold Metformin and resume at discharge (7) HFrEF (heart failure with reduced ejection fraction) Current Visit: Yes Status: Acute Code(s): I50.20 - UNSPECIFIED SYSTOLIC ( CONGESTIVE) HEART FAILURE SNOMED Code(s): 292950593 Comment: - EF 40-45% on recent Echo - No signs of fluid overload - Use fluids cautiously (8) Hypothyroid Current Visit: Yes Status: Chronic Code(s): E03.9 - HYPOTHYROIDISM, UNSPECIFIED SNOMED Code(s): 84089472 Comment: - Continue synthroid daily (9) DVT prophylaxis Current Visit: Yes Status: Acute Code(s): YYK6808 - SNOMED Code(s): 728410421 Comment: - Eliquis (10) DNR (do not resuscitate) Current Visit: Yes Status: Acute Status and Disposition: Inpatient for IV antibiotics due to bacteremia. Attending: Raven Jones
[2018-05-02] MEDS: Digoxin TAB* 0.125 MG PO SCH (17:29)
[2018-05-02] MEDS: Atorvastatin* 10 MG TAB PO SCH (17:29)
--- NOTE | 2018-05-02 23:29 | HP ---
HISTORY AND PHYSICAL/CONSULTATION NOTE: DATE OF ADMISSION: 04/27/18 DATE OF CONSULT: 05/02/18 SERVICE: General Surgery. ATTENDING SURGEON: Dr. Karina Arnold. ATTENDING PROVIDERS: OLAMIDE Harper and Cindi Romero MD REASON FOR CONSULT: Right upper quadrant abdominal pain. HISTORY OF PRESENT ILLNESS: Mr. Concepcion is an 88-year-old gentleman with multiple medical problems, who presented to the emergency room on 04/26/18 from his home at [place] with altered mental status and approximately 3 days of abdominal pain, nausea and vomiting. Of note this history is being obtained from medical records as patient cannot describe the course of events in its entirety. The patient was evaluated and had had an abdominal and bladder ultrasound performed showing no obstructing renal stones. He also had a transesophageal echocardiogram done showing a bioprosthetic mitral valve with abnormalities concerning for endocarditis or degenerative changes. His hospital course was also significant for findings of a UTI as well as pseudomonas bacteremia. Given his bacteremia, endocarditis of the mitral valve and urinary tract infection, he has been on cefepime per Infectious Diseases with a total course of 5 weeks. He continued to complain about having right upper quadrant abdominal pain, so an ultrasound was recently performed as well as a HIDA scan. The HIDA scan showed that the patient did not have filling of the gallbladder after 3 hours confirming cystic duct obstruction and acute cholecystitis. Therefore, Surgery was consulted. Currently, the patient has only complaints of having right upper quadrant abdominal pain that is very mild. He has no nausea or vomiting. He has been tolerating some p.o. and he is also complaining of having a little bit of abdominal distention. PAST MEDICAL HISTORY: Atrial fibrillation, CHF, coronary artery disease, diabetes, history of CVA, BPH, anemia, hypothyroidism, and a mitral valve replacement. PAST SURGICAL HISTORY: Cataract, mitral valve surgery, prostate surgery, kidney stones. MEDICATIONS: Current inpatient medication list is: 1. Eliquis 2.5 mg p.o. b.i.d. 2. Lipitor 10 mg p.o. daily. 3. Cefepime 1 g IV b.i.d. 4. Digoxin 0.125 mg p.o. daily. 5. Gabapentin 100 mg p.o. b.i.d. 6. Insulin. 7. Levothyroxine 100 mcg p.o. daily. 8. Melatonin. 9. Metoprolol 50 mg p.o. daily. 10. Omeprazole. 11. Senna. 12. Oxycodone p.r.n. ALLERGIES: No known drug allergies. FAMILY HISTORY: Positive for cardiac disease. SOCIAL HISTORY: Nonsmoker. REVIEW OF SYSTEMS: Negative except for abdominal pain. PHYSICAL EXAMINATION GENERAL: This is an elderly frail-appearing male sitting comfortably up in a chair and converses easily. VITAL SIGNS: T-max is 98, pulse is 74, respiratory rate is 20, and O2 sat is 97 % on room air, blood pressure is 127/60. HEENT: Normocephalic, atraumatic. CARDIOVASCULAR : Regular rate and rhythm. RESPIRATORY: Clear to auscultation bilaterally. ABDOMEN: Distended and very minimally tender to deep palpation in the right upper quadrant. EXTREMITIES: No edema. DIAGNOSTIC STUDIES/LAB DATA: 05/02/18: White blood cell count is 9.4, hemoglobin is 9.6, hematocrit is 30, platelet count is 304. Sodium is 144, potassium is 3.6, chloride is 115, CO2 22, BUN is 22, creatinine is 1.03, glucose is 148. Total bilirubin 0.9, direct bilirubin 0.2, indirect bilirubin 0.7, AST is 27, ALT is 41, alkaline phosphatase is 81. Radiology: Gallbladder ultrasound on 05/01/18 shows non-shadowing gallstones, irregular gallbladder wall thickening. The findings may be secondary to underlying hepatic function or chronic infection, underlying malignancy cannot be excluded. If there are continued concerns for cholecystitis, a HIDA scan may be helpful. If there is concern for malignancy, MRCP is recommended. 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 Trace ascites, trace right pleural effusion. HIDA scan on 05/02/18, nonvisualization of the gallbladder to 3 hours post radiopharmaceutical administration consistent with cystic duct obstruction/ acute cholecystitis, patent common bile duct. ASSESSMENT AND PLAN: Mr. Concepcion is an 88-year-old gentleman with multiple medical problems including coronary artery disease, mitral valve repair, atrial fibrillation, who was recently admitted with complaints of right upper quadrant abdominal pain and an altered mental status. He was found to have bacteremia as well as endocarditis and is currently completing a 5-week course of IV cefepime. He continued to have right upper quadrant abdominal pain throughout his hospital course, although this has improved. Given these complaints, he had a right upper quadrant ultrasound and a HIDA scan, which indicated that he has acute cholecystitis. Given the fact that he is currently undergoing a prolonged IV antibiotic course for the endocarditis, it is recommended that his cholecystitis is medically managed with antibiotics. It appears that his symptoms have been improving simply being on antibiotics as his white count is normal, LFTs are normal, his right upper quadrant pain is very minimal, and he has been tolerating p.o. without any nausea or vomiting. Also, he is currently on Eliquis presently for his atrial fibrillation and he would have to be off anticoagulation prior to any surgery. Should he develop any worsening symptoms , it is recommended that he undergo cholecystostomy tube rather than surgical intervention at this time. I have discussed this with the patient and his friend at the bedside. I have also discussed that after discharge and after completion of his IV antibiotics, he could proceed with an elective cholecystectomy; however, again if his symptoms have completely resolved, this may not even be necessary given that the patient does have many medical comorbidities. Also, the patient does have findings of very irregular gallbladder wall thickening and polyps, the question of malignancy was also entertained by ultrasound. While he is inpatient, it may be beneficial also to obtain MRCP to more fully evaluate the gallbladder. [id number]/[facility] #: [id number] ROSELIA
[2018-05-03] MEDS: Levothyroxine TAB* 100 MCG TAB PO SCH (05:11)
[2018-05-03] MEDS: Omeprazole CAP* 20 MG PO SCH (05:11)
[2018-05-03] MEDS: Cefepime 1 GM in Dextrose(*) 1 GM/50 ML BAG IV SCH ×2 (07:30→20:08)
[2018-05-03] MEDS: Insulin LISPRO* 1 UNITS UNIT SUBCUT SCH ×3 (10:14→19:08)
[2018-05-03] MEDS: Gabapentin CAP(*) 100 MG PO SCH ×2 (10:20→20:06)
[2018-05-03] MEDS: Apixaban* 2.5 MG TAB PO SCH ×2 (10:21→20:06)
[2018-05-03] MEDS: Metoprolol Succinate XL TAB* 50 MG PO SCH (10:21)
--- NOTE | 2018-05-03 13:46 | PN ---
Subjective Date of Service: 05/03/18 Interval History: Mr. Concepcion feels well today. He continues to have RUQ pain, but is tolerating a regular diet and denies N/V. He offers no other complaints. Has been up ambulating in his room with assistance. Denies CP, SOB, diarrhea, dizziness. Family History: Unchanged from Admission Social History: Unchanged from Admission Past Medical History: Unchanged from Admission Objective Active Medications: Acetaminophen (Tylenol Tab*) 650 mg PO Q4H PRN Apixaban (Eliquis*) 2.5 mg PO BID [facility] Atorvastatin Calcium (Lipitor*) 10 mg PO 1700 [facility] Dextrose (D50w Syringe 50 Ml*) 12.5 gm IV PUSH .FOR FS < 60 - SS PRN Digoxin (Lanoxin Tab*) 0.125 mg PO 1700 [facility] Docusate Sodium (Colace Cap*) 100 mg PO BID PRN Gabapentin (Neurontin Cap(*)) 100 mg PO BID [facility] Cefepime HCl (Maxipime 1 Gm In Dextrose Duplex (*)) 1 gm in 50 mls @ 100 mls/ hr IV 0730,1930 [facility] Insulin Human Lispro (Humalog*) 0 units SUBCUT AC [facility]; Protocol Levothyroxine Sodium (Synthroid Tab*) 100 mcg PO DAILY@0600 [facility] Melatonin (Melatonin) 3 mg PO BEDTIME PRN Metoprolol Succinate (Toprol Xl Tab*) 50 mg PO DAILY [facility] Metronidazole (Flagyl Tab*) 500 mg PO Q8H [facility] Morphine Sulfate (Morphine Vial*) 1 mg IV Q4H PRN Omeprazole (Prilosec Cap*) 20 mg PO DAILY@0600 [facility] Ondansetron HCl (Zofran Inj*) 4 mg IV Q4H PRN Oxycodone HCl (Roxycodone Tab*) 5 mg PO Q4H PRN Senna (Senokot Tab*) 1 tab PO BID PRN Vital Signs - 8 hr 05/03/18 05/03/18 07:50 10:20 Temperature 97.7 F Pulse Rate 78 Respiratory 18 18 Rate Blood Pressure 151/58 (mmHg) O2 Sat by Pulse 95 Oximetry Oxygen Devices in Use Now: None Appearance: Elderly male sitting in chair in NAD Eyes: No Scleral Icterus Ears/Nose/Mouth/Throat: Mucous Membranes Moist Neck: NL Appearance and Movements; NL JVP Respiratory: Symmetrical Chest Expansion and Respiratory Effort, Clear to Auscultation Cardiovascular: NL Sounds; No Murmurs; No JVD, RRR Abdominal: NL Sounds; No Tenderness; No Distention Extremities: No Edema Skin: No Rash or Ulcers Neurological: Alert and Oriented x 3 Lines/Tubes/Other Access: Clean, Dry and Intact Peripheral IV Nutrition: Taking PO's Result Diagrams: 05/02/18 07:04 05/02/18 07:04 Assess/Plan/Problems-Billing Assessment: Patient is an 88yo male with a PMH for Recurrent UTI, Renal Calculi, HFrEF, Prosthetic Heart Valve with recent enterococcus endocarditis in Jul 2017 who presents with urinary symptoms and altered mental status consistent with UTI. - Patient Problems (1) Endocarditis of mitral valve Current Visit: Yes Status: Acute Code(s): I05.8 - OTHER RHEUMATIC MITRAL VALVE DISEASES SNOMED Code(s): 90052725 Comment: - Bioprosthetic valve - JUAN on 04/30 shows mobile density on mitral valve thought to be chronic, but this was not present on JUAN in July so it is likely acute; vegetation earlier this year was on aortic valve - Continue cefepime per ID for a total of 5 weeks; will need PICC (2) Cholecystitis Current Visit: Yes Status: Acute Code(s): K81.9 - CHOLECYSTITIS, UNSPECIFIED SNOMED Code(s): 37185942 Comment: - GB US shows wall thickening w/ polyps; possible cholecystitis vs malignancy - HIDA shows cystic duct obstruction and acute cholecystitis - Appreciate surgery consult; will require treatment with abx as he is not a surgical candidate d/t endocarditis - Continue cefepime and add flagyl for anaerobic coverage (3) Bacteremia due to Pseudomonas Current Visit: Yes Status: Acute Code(s): R78.81 - BACTEREMIA SNOMED Code( s): 0586541 Comment: - Blood Cultures positive for Pseudomonas, likely urinary source - 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 - Repeat blood cx show no growth - Continue cefepime per ID (4) UTI (urinary tract infection) Current Visit: Yes Status: Acute Comment: - Positive UTI with urinary symptoms and initially had CVA tenderness (now resolved) possibly indicating pyelonephritis; no noted hydronephrosis on imaging - Urine culture shows no bacterial growth; ha likely contaminant, though this is likely d/t Psuedomonas based on + BC - JUAN 04/30 visualized abnormality noted on bioprosthetic mitral valve but thought to be remote endocarditis or degenerative changes - Bladder scans show adequate emptying of the bladder - Continue cefepime (5) Transaminitis Current Visit: Yes Status: Acute Code(s): R74.0 - NONSPEC ELEV OF LEVELS OF TRANSAMNS & LACTIC ACID DEHYDRGNSE SNOMED Code(s): 834031691 Comment: - Resolved - 2/2 GB pathology - Acute viral hepatitis panel negative (6) Diabetes mellitus type 2, controlled Current Visit: Yes Status: Acute Code(s): E11.9 - TYPE 2 DIABETES MELLITUS WITHOUT COMPLICATIONS SNOMED Code(s): 18048150 Comment: - Continue BG AC with Lispro SSI coverage with meals - A1c excellent at 5.2 - Hold Metformin and resume at discharge (7) HFrEF (heart failure with reduced ejection fraction) Current Visit: Yes Status: Acute Code(s): I50.20 - UNSPECIFIED SYSTOLIC ( CONGESTIVE) HEART FAILURE SNOMED Code(s): 944057754 Comment: - EF 40-45% on recent Echo - No signs of fluid overload - Use fluids cautiously (8) Hypothyroid Current Visit: Yes Status: Chronic Code(s): E03.9 - HYPOTHYROIDISM, UNSPECIFIED SNOMED Code(s): 35748870 Comment: - Continue synthroid (9) DVT prophylaxis Current Visit: Yes Status: Acute Code(s): OAM7550 - SNOMED Code(s): 401261419 Comment: - Eliquis (10) DNR (do not resuscitate) Current Visit: Yes Status: Acute Status and Disposition: Inpatient for IV antibiotics due to bacteremia. Attending: Raven Jones
[2018-05-03] MEDS: metroNIDAZOLE TAB* 250 MG PO SCH ×2 (14:10→22:52)
[2018-05-03] MEDS: Atorvastatin* 10 MG TAB PO SCH (17:11)
[2018-05-03] MEDS: Digoxin TAB* 0.125 MG PO SCH (17:11)
[2018-05-04] MEDS: metroNIDAZOLE TAB* 250 MG PO SCH ×3 (05:08→20:19)
[2018-05-04] MEDS: Levothyroxine TAB* 100 MCG TAB PO SCH (05:08)
[2018-05-04] MEDS: Omeprazole CAP* 20 MG PO SCH (05:08)
[2018-05-04] MEDS: Insulin LISPRO* 1 UNITS UNIT SUBCUT SCH ×3 (09:30→18:10)
[2018-05-04] MEDS: Gabapentin CAP(*) 100 MG PO SCH ×2 (09:32→20:19)
[2018-05-04] MEDS: Metoprolol Succinate XL TAB* 50 MG PO SCH (09:32)
[2018-05-04] MEDS: Apixaban* 2.5 MG TAB PO SCH ×2 (09:32→20:19)
[2018-05-04] MEDS: Cefepime 1 GM in Dextrose(*) 1 GM/50 ML BAG IV SCH ×2 (09:32→20:20)
--- NOTE | 2018-05-04 15:37 | PN ---
Subjective Date of Service: 05/04/18 Interval History: Patient seen and examined. Offers no complaints. States some mild tenderness RUE , but otherwise feeling better today, denies SOB, no chest pain, no fevers or chills. No n/v. Family History: Unchanged from Admission Social History: Unchanged from Admission Past Medical History: Unchanged from Admission Objective Active Medications: Acetaminophen (Tylenol Tab*) 650 mg PO Q4H PRN PRN Reason: FEVER/PAIN Last Admin: 04/27/18 16:10 Dose: 650 mg Apixaban (Eliquis*) 2.5 mg PO BID [facility] Last Admin: 05/04/18 09:32 Dose: 2.5 mg Atorvastatin Calcium (Lipitor*) 10 mg PO 1700 [facility] Last Admin: 05/03/18 17:11 Dose: 10 mg Dextrose (D50w Syringe 50 Ml*) 12.5 gm IV PUSH .FOR FS < 60 - SS PRN PRN Reason: FS < 60 Digoxin (Lanoxin Tab*) 0.125 mg PO 1700 [facility] Last Admin: 05/03/18 17:11 Dose: 0.125 mg Docusate Sodium (Colace Cap*) 100 mg PO BID PRN PRN Reason: CONSTIPATION Last Admin: 04/29/18 05:25 Dose: 100 mg Gabapentin (Neurontin Cap(*)) 100 mg PO BID [facility] Last Admin: 05/04/18 09:32 Dose: 100 mg Cefepime HCl (Maxipime 1 Gm In Dextrose Duplex (*)) 1 gm in 50 mls @ 100 mls/ hr IV 0730,1930 [facility] Last Admin: 05/04/18 09:32 Dose: 100 mls/hr Insulin Human Lispro (Humalog*) 0 units SUBCUT [facility]; Protocol Last Admin: 05/04/18 13:34 Dose: 2 unit Levothyroxine Sodium (Synthroid Tab*) 100 mcg PO DAILY@0600 [facility] Last Admin: 05/04/18 05:08 Dose: 100 mcg Melatonin (Melatonin) 3 mg PO BEDTIME PRN PRN Reason: SLEEP Metoprolol Succinate (Toprol Xl Tab*) 50 mg PO DAILY [facility] Last Admin: 05/04/18 09:32 Dose: 50 mg Metronidazole (Flagyl Tab*) 500 mg PO Q8H [facility] Last Admin: 05/04/18 13:34 Dose: 500 mg Omeprazole (Prilosec Cap*) 20 mg PO DAILY@0600 [facility] Last Admin: 05/04/18 05:08 Dose: 20 mg Ondansetron HCl (Zofran Inj*) 4 mg IV Q4H PRN PRN Reason: NAUSEA/VOMITING Last Admin: 04/27/18 02:46 Dose: 4 mg Oxycodone HCl (Roxycodone Tab*) 5 mg PO Q4H PRN PRN Reason: PAIN Senna (Senokot Tab*) 1 tab PO BID PRN PRN Reason: CONSTIPATION Vital Signs - 8 hr 05/04/18 05/04/18 05/04/18 08:11 09:32 11:52 Temperature 97.9 F 98.2 F Pulse Rate 73 81 Respiratory 16 16 16 Rate Blood Pressure 141/61 115/66 (mmHg) O2 Sat by Pulse 95 99 Oximetry 05/04/18 05/04/18 12:15 13:48 Temperature Pulse Rate Respiratory 16 16 Rate Blood Pressure (mmHg) O2 Sat by Pulse Oximetry Oxygen Devices in Use Now: None Appearance: alert, NAD Eyes: No Scleral Icterus, PERRLA Ears/Nose/Mouth/Throat: Clear Oropharnyx, Mucous Membranes Moist Neck: NL Appearance and Movements; NL JVP, Trachea Midline Respiratory: Symmetrical Chest Expansion and Respiratory Effort, Clear to Auscultation Cardiovascular: NL Sounds; No Murmurs; No JVD, RRR, No Edema Abdominal: NL Sounds; No Tenderness; No Distention Extremities: No Edema, No Clubbing, Cyanosis Skin: No Rash or Ulcers Neurological: Alert and Oriented x 3 Nutrition: Taking PO's Result Diagrams: 05/02/18 07:04 05/04/18 09:09 Additional Lab and Data: Lab Results Microbiology and Other Data: Microbiology 04/27/18 03:29 Nasal Screen MRSA (PCR) - Final Nasal Mrsa Detected 04/27/18 03:30 Influenza Types A,B Antigen - Final Nasopharyngeal Specimen received for Influenza A/B Molecular testing Assess/Plan/Problems-Billing Assessment: Patient is an 88yo male with a PMH for Recurrent UTI, Renal Calculi, HFrEF, Prosthetic Heart Valve with 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 - Continue cefepime per ID (2) Endocarditis of mitral valve Code(s): I05.8 - OTHER RHEUMATIC MITRAL VALVE DISEASES SNOMED Code(s): 96252457 Comment: - Bioprosthetic valve - JUAN on 04/30 shows mobile density on mitral valve thought to be chronic, but this was not present on JUAN in July so it is likely acute; vegetation earlier this year was on aortic valve - Continue cefepime per ID for a total of 5 weeks; will need PICC before DC (3) Cholecystitis Code(s): K81.9 - CHOLECYSTITIS, UNSPECIFIED SNOMED Code(s): 36882939 Comment: - GB US shows wall thickening w/ polyps; possible cholecystitis vs malignancy - HIDA shows cystic duct obstruction and acute cholecystitis - Not an operative candidate as per surgery 2/2 current endocarditis - Continue cefepime and flagyl - supportive care (4) Diabetes mellitus type 2, controlled Code(s): E11.9 - TYPE 2 DIABETES MELLITUS WITHOUT COMPLICATIONS SNOMED Code(s) : 61427641 Comment: - Continue BG AC with Lispro SSI coverage with meals - A1c appropriate at 5.2 - Hold Metformin and resume at discharge (5) Transaminitis Code(s): R74.0 - NONSPEC ELEV OF LEVELS OF TRANSAMNS & LACTIC ACID DEHYDRGNSE SNOMED Code(s): 769858349 Comment: - Resolved - 2/2 GB pathology - Acute viral hepatitis panel negative (6) UTI (urinary tract infection) Comment: - No growth in culture, continue cefepime per ID - No retention noted on bladder scan (7) Atrial fibrillation Code(s): I48.91 - UNSPECIFIED ATRIAL FIBRILLATION SNOMED Code(s): 43105321 Comment: - Paroxysmal, currently in regular rhythm on exam - Continue Eliquis, metoprolol and Digoxin Status and Disposition: Inpatient, DC plan will likely be STR because of frequency of antibiotics that will be required for 5 weeks.
[2018-05-04] MEDS: Digoxin TAB* 0.125 MG PO SCH (18:09)
[2018-05-04] MEDS: Atorvastatin* 10 MG TAB PO SCH (18:10)
[2018-05-05] MEDS: Levothyroxine TAB* 100 MCG TAB PO SCH (05:33)
[2018-05-05] MEDS: metroNIDAZOLE TAB* 250 MG PO SCH ×3 (05:33→22:36)
[2018-05-05] MEDS: Omeprazole CAP* 20 MG PO SCH (05:33)
[2018-05-05] MEDS: Insulin LISPRO* 1 UNITS UNIT SUBCUT SCH ×3 (09:54→18:40)
[2018-05-05] MEDS: Cefepime 1 GM in Dextrose(*) 1 GM/50 ML BAG IV SCH ×2 (09:55→22:32)
[2018-05-05] MEDS: Gabapentin CAP(*) 100 MG PO SCH ×2 (09:55→22:37)
[2018-05-05] MEDS: Apixaban* 2.5 MG TAB PO SCH ×2 (09:55→22:36)
[2018-05-05] MEDS: Metoprolol Succinate XL TAB* 50 MG PO SCH (09:55)
--- NOTE | 2018-05-05 14:07 | PN ---
Subjective Date of Service: 05/05/18 Interval History: Mr. Concepcion is feeling well today. He reports that his abd pain is improving. Pain is worse with some movement, but generally, the pain is minimal. He has not had any N/V/D. Appetite is good. Denies CP, SOB, dizziness. Family History: Unchanged from Admission Social History: Unchanged from Admission Past Medical History: Unchanged from Admission Objective Active Medications: Acetaminophen (Tylenol Tab*) 650 mg PO Q4H PRN FEVER/PAIN Apixaban (Eliquis*) 2.5 mg PO BID [facility] Atorvastatin Calcium (Lipitor*) 10 mg PO 1700 [facility] Dextrose (D50w Syringe 50 Ml*) 12.5 gm IV PUSH .FOR FS < 60 - SS PRN FS < 60 Digoxin (Lanoxin Tab*) 0.125 mg PO 1700 [facility] Docusate Sodium (Colace Cap*) 100 mg PO BID PRN CONSTIPATION Gabapentin (Neurontin Cap(*)) 100 mg PO BID [facility] Cefepime HCl (Maxipime 1 Gm In Dextrose Duplex (*)) 1 gm in 50 mls @ 100 mls/ hr IV Q12H [facility] Insulin Human Lispro (Humalog*) 0 units SUBCUT AC [facility]; Protocol Levothyroxine Sodium (Synthroid Tab*) 100 mcg PO DAILY@0600 [facility] Melatonin (Melatonin) 3 mg PO BEDTIME PRN SLEEP Metoprolol Succinate (Toprol Xl Tab*) 50 mg PO DAILY [facility] Metronidazole (Flagyl Tab*) 500 mg PO Q8H [facility] Omeprazole (Prilosec Cap*) 20 mg PO DAILY@0600 [facility] Ondansetron HCl (Zofran Inj*) 4 mg IV Q4H PRN NAUSEA/VOMITING Senna (Senokot Tab*) 1 tab PO BID PRN CONSTIPATION Vital Signs - 8 hr 05/05/18 05/05/18 05/05/18 08:28 09:55 10:23 Temperature 97.4 F Pulse Rate 87 Respiratory 22 16 16 Rate Blood Pressure 141/73 (mmHg) O2 Sat by Pulse 94 Oximetry Oxygen Devices in Use Now: None Appearance: Elderly male sitting in chair in NAD Eyes: No Scleral Icterus Ears/Nose/Mouth/Throat: Mucous Membranes Moist Neck: NL Appearance and Movements; NL JVP, Trachea Midline Respiratory: Symmetrical Chest Expansion and Respiratory Effort, Clear to Auscultation Cardiovascular: NL Sounds; No Murmurs; No JVD, RRR Abdominal: - - Nondistended; Slightly tender to RUQ with deep palpation Extremities: No Edema, No Clubbing, Cyanosis Skin: No Rash or Ulcers Neurological: Alert and Oriented x 3, NL Sensation Lines/Tubes/Other Access: Clean, Dry and Intact Peripheral IV Nutrition: Taking PO's Result Diagrams: 05/02/18 07:04 05/04/18 09:09 Assess/Plan/Problems-Billing Assessment: Patient is an 88yo male with a PMH for Recurrent UTI, Renal Calculi, HFrEF, 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 - Patient Problems (1) Endocarditis of mitral valve Current Visit: Yes Status: Acute Code(s): I05.8 - OTHER RHEUMATIC MITRAL VALVE DISEASES SNOMED Code(s): 58174156 Comment: - Bioprosthetic valve - JUAN on 04/30 shows mobile density on mitral valve thought to be chronic, but this was not present on JUAN in July so it is likely acute; vegetation earlier this year was on aortic valve - Continue cefepime per ID for a total of 5 weeks; will need PICC before d/c (2) Cholecystitis Current Visit: Yes Status: Acute Code(s): K81.9 - CHOLECYSTITIS, UNSPECIFIED SNOMED Code(s): 98083671 Comment: - GB US shows wall thickening w/ polyps; possible cholecystitis vs malignancy - HIDA shows cystic duct obstruction and acute cholecystitis - Not an operative candidate as per surgery 2/2 current endocarditis - Low fat diet - Continue cefepime and flagyl (3) Bacteremia due to Pseudomonas Current Visit: Yes Status: Acute Code(s): R78.81 - BACTEREMIA SNOMED Code( s): 0711480 Comment: - Blood Cultures positive for Pseudomonas, likely urinary source - 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 - Continue cefepime per ID (4) UTI (urinary tract infection) Current Visit: Yes Status: Acute Comment: - No growth in culture, continue cefepime per ID - No retention noted on bladder scan (5) Transaminitis Current Visit: Yes Status: Acute Code(s): R74.0 - NONSPEC ELEV OF LEVELS OF TRANSAMNS & LACTIC ACID DEHYDRGNSE SNOMED Code(s): 216965681 Comment: - Resolved - 2/2 GB pathology (6) Diabetes mellitus type 2, controlled Current Visit: Yes Status: Acute Code(s): E11.9 - TYPE 2 DIABETES MELLITUS WITHOUT COMPLICATIONS SNOMED Code(s): 76481230 Comment: - Continue BG AC with Lispro SSI coverage with meals - A1c appropriate at 5.2 - Hold Metformin and resume at discharge (7) HFrEF (heart failure with reduced ejection fraction) Current Visit: Yes Status: Acute Code(s): I50.20 - UNSPECIFIED SYSTOLIC ( CONGESTIVE) HEART FAILURE SNOMED Code(s): 151479004 Comment: - EF 40-45% on recent Echo - No signs of fluid overload - Use fluids cautiously (8) Hypothyroid Current Visit: Yes Status: Chronic Code(s): E03.9 - HYPOTHYROIDISM, UNSPECIFIED SNOMED Code(s): 46557268 Comment: - Continue synthroid (9) DVT prophylaxis Current Visit: Yes Status: Acute Code(s): LSD0430 - SNOMED Code(s): 903583606 Comment: - Eliquis (10) DNR (do not resuscitate) Current Visit: Yes Status: Acute Status and Disposition: Inpatient, DC plan will likely be STR because of frequency of antibiotics that will be required for 5 weeks.
[2018-05-05] MEDS: Digoxin TAB* 0.125 MG PO SCH (18:09)
[2018-05-05] MEDS: Atorvastatin* 10 MG TAB PO SCH (18:09)
[2018-05-06] MEDS: metroNIDAZOLE TAB* 250 MG PO SCH ×3 (06:57→21:23)
[2018-05-06] MEDS: Omeprazole CAP* 20 MG PO SCH (06:57)
[2018-05-06] MEDS: Levothyroxine TAB* 100 MCG TAB PO SCH (06:57)
[2018-05-06] MEDS: Gabapentin CAP(*) 100 MG PO SCH ×2 (09:34→20:04)
[2018-05-06] MEDS: Metoprolol Succinate XL TAB* 50 MG PO SCH (09:34)
[2018-05-06] MEDS: Apixaban* 2.5 MG TAB PO SCH ×2 (09:34→20:05)
[2018-05-06] MEDS: Insulin LISPRO* 1 UNITS UNIT SUBCUT SCH ×3 (09:35→19:11)
[2018-05-06] MEDS: Cefepime 1 GM in Dextrose(*) 1 GM/50 ML BAG IV SCH ×2 (09:35→20:00)
[2018-05-06] MEDS ORDERED: Furosemide TAB* 40 MG PO ONE (14:11)
--- NOTE | 2018-05-06 14:12 | PN ---
Subjective Date of Service: 05/06/18 Interval History: Mr. Concepcion is doing well today. He was eating lunch on my exam. Reports a good appetite. No N/V/D. He continues to have mild RUQ pain which is worse with particular movements. He thinks this pain is about the same as yesterday. He otherwise offers no complaints. Denies CP, SOB, dizziness. Family History: Unchanged from Admission Social History: Unchanged from Admission Past Medical History: Unchanged from Admission Objective Active Medications: Acetaminophen (Tylenol Tab*) 650 mg PO Q4H PRN FEVER/PAIN Apixaban (Eliquis*) 2.5 mg PO BID [facility] Atorvastatin Calcium (Lipitor*) 10 mg PO 1700 [facility] Dextrose (D50w Syringe 50 Ml*) 12.5 gm IV PUSH .FOR FS < 60 - SS PRN FS < 60 Digoxin (Lanoxin Tab*) 0.125 mg PO 1700 [facility] Docusate Sodium (Colace Cap*) 100 mg PO BID PRN CONSTIPATION Gabapentin (Neurontin Cap(*)) 100 mg PO BID [facility] Cefepime HCl (Maxipime 1 Gm In Dextrose Duplex (*)) 1 gm in 50 mls @ 100 mls/ hr IV Q12H [facility] Insulin Human Lispro (Humalog*) 0 units SUBCUT AC [facility]; Protocol Levothyroxine Sodium (Synthroid Tab*) 100 mcg PO DAILY@0600 [facility] Melatonin (Melatonin) 3 mg PO BEDTIME PRN SLEEP Metoprolol Succinate (Toprol Xl Tab*) 50 mg PO DAILY [facility] Metronidazole (Flagyl Tab*) 500 mg PO Q8H [facility] Omeprazole (Prilosec Cap*) 20 mg PO DAILY@0600 [facility] Ondansetron HCl (Zofran Inj*) 4 mg IV Q4H PRN NAUSEA/VOMITING Senna (Senokot Tab*) 1 tab PO BID PRN CONSTIPATION Vital Signs - 8 hr 05/06/18 05/06/18 05/06/18 08:44 08:48 09:34 Temperature 97.5 F Pulse Rate 81 Respiratory 16 16 16 Rate Blood Pressure 111/77 (mmHg) O2 Sat by Pulse 95 Oximetry 05/06/18 05/06/18 12:29 12:30 Temperature 97.7 F Pulse Rate 87 Respiratory 16 Rate Blood Pressure 150/72 (mmHg) O2 Sat by Pulse 96 Oximetry Oxygen Devices in Use Now: None Appearance: Elderly male sitting in chair in NAD Eyes: No Scleral Icterus Ears/Nose/Mouth/Throat: Mucous Membranes Moist Neck: NL Appearance and Movements; NL JVP, Trachea Midline Respiratory: Symmetrical Chest Expansion and Respiratory Effort, Clear to Auscultation Cardiovascular: NL Sounds; No Murmurs; No JVD, RRR Abdominal: - - Nondistended, mild tenderness to deep palpation of RUQ Extremities: - - +1 pitting edema to BLE Neurological: Alert and Oriented x 3, NL Sensation Lines/Tubes/Other Access: Clean, Dry and Intact Peripheral IV Nutrition: Taking PO's Result Diagrams: 05/02/18 07:04 05/04/18 09:09 Assess/Plan/Problems-Billing Assessment: Patient is an 88yo male with a PMH for Recurrent UTI, Renal Calculi, HFrEF, 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 - Patient Problems (1) Endocarditis of mitral valve Current Visit: Yes Status: Acute Code(s): I05.8 - OTHER RHEUMATIC MITRAL VALVE DISEASES SNOMED Code(s): 65587893 Comment: - Bioprosthetic valve - JUAN on 04/30 shows mobile density on mitral valve thought to be chronic, but this was not present on JUAN in July so it is likely acute; vegetation earlier this year was on aortic valve - Continue cefepime per ID for a total of 5 weeks; will need PICC before d/c (2) Cholecystitis Current Visit: Yes Status: Acute Code(s): K81.9 - CHOLECYSTITIS, UNSPECIFIED SNOMED Code(s): 87910857 Comment: - GB US shows wall thickening w/ polyps; possible cholecystitis vs malignancy - HIDA shows cystic duct obstruction and acute cholecystitis - Not an operative candidate as per surgery 2/2 current endocarditis - Low fat diet - Continue cefepime and flagyl (3) Bacteremia due to Pseudomonas Current Visit: Yes Status: Acute Code(s): R78.81 - BACTEREMIA SNOMED Code( s): 6620006 Comment: - Blood Cultures positive for Pseudomonas, likely urinary source - 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 - Continue cefepime per ID (4) UTI (urinary tract infection) Current Visit: Yes Status: Acute Comment: - No growth in culture, continue cefepime per ID - No retention noted on bladder scan (5) Transaminitis Current Visit: Yes Status: Acute Code(s): R74.0 - NONSPEC ELEV OF LEVELS OF TRANSAMNS & LACTIC ACID DEHYDRGNSE SNOMED Code(s): 595331192 Comment: - Resolved - 2/2 GB pathology (6) Diabetes mellitus type 2, controlled Current Visit: Yes Status: Acute Code(s): E11.9 - TYPE 2 DIABETES MELLITUS WITHOUT COMPLICATIONS SNOMED Code(s): 64672496 Comment: - Continue BG AC with Lispro SSI coverage with meals - A1c appropriate at 5.2 - Hold Metformin and resume at discharge (7) HFrEF (heart failure with reduced ejection fraction) Current Visit: Yes Status: Acute Code(s): I50.20 - UNSPECIFIED SYSTOLIC ( CONGESTIVE) HEART FAILURE SNOMED Code(s): 411116317 Comment: - EF 40-45% on recent Echo - No signs of fluid overload - Use fluids cautiously - Will give lasix 40mg PO x1 today for LE edema (8) Hypothyroid Current Visit: Yes Status: Chronic Code(s): E03.9 - HYPOTHYROIDISM, UNSPECIFIED SNOMED Code(s): 21709251 Comment: - Continue synthroid (9) DVT prophylaxis Current Visit: Yes Status: Acute Code(s): [id number] - SNOMED Code(s): 827754990 Comment: - Ernst (10) DNR (do not resuscitate) Current Visit: Yes Status: Acute Status and Disposition: Inpatient. D/c plan will likely be STR because of frequency of antibiotics that will be required for 5 weeks.
[2018-05-06] MEDS: Digoxin TAB* 0.125 MG PO SCH (19:11)
[2018-05-06] MEDS: Atorvastatin* 10 MG TAB PO SCH (19:11)
[2018-05-07] MEDS: Omeprazole CAP* 20 MG PO SCH (05:05)
[2018-05-07] MEDS: metroNIDAZOLE TAB* 250 MG PO SCH ×3 (05:05→21:33)
[2018-05-07] MEDS: Levothyroxine TAB* 100 MCG TAB PO SCH (05:06)
[2018-05-07] MEDS: Gabapentin CAP(*) 100 MG PO SCH ×2 (10:14→20:09)
[2018-05-07] MEDS: Metoprolol Succinate XL TAB* 50 MG PO SCH (10:14)
[2018-05-07] MEDS: Apixaban* 2.5 MG TAB PO SCH ×2 (10:14→20:09)
[2018-05-07] MEDS: Insulin LISPRO* 1 UNITS UNIT SUBCUT SCH ×3 (10:15→18:17)
[2018-05-07] MEDS: Cefepime 1 GM in Dextrose(*) 1 GM/50 ML BAG IV SCH ×2 (10:17→20:10)
--- NOTE | 2018-05-07 14:04 | PN ---
Subjective Date of Service: 05/07/18 Interval History: Mr. Carreno reports that his abdominal pain is slightly worse today. It is worse at rest and with palpation. He reports feeling as though he "swallowed a watermelon" and feels bloated. He was able to eat his breakfast without any difficulty. No N/V and appetite is good. He offers no other complaints. Denies CP, SOB, dizziness. Has been up ambulating in his room with staff assist. Family History: Unchanged from Admission Social History: Unchanged from Admission Past Medical History: Unchanged from Admission Objective Active Medications: Acetaminophen (Tylenol Tab*) 650 mg PO Q4H PRN FEVER/PAIN Apixaban (Eliquis*) 2.5 mg PO BID [facility] Atorvastatin Calcium (Lipitor*) 10 mg PO 1700 [facility] Dextrose (D50w Syringe 50 Ml*) 12.5 gm IV PUSH .FOR FS < 60 - SS PRN FS < 60 Digoxin (Lanoxin Tab*) 0.125 mg PO 1700 [facility] Docusate Sodium (Colace Cap*) 100 mg PO BID PRN CONSTIPATION Gabapentin (Neurontin Cap(*)) 100 mg PO BID [facility] Cefepime HCl (Maxipime 1 Gm In Dextrose Duplex (*)) 1 gm in 50 mls @ 100 mls/ hr IV Q12H [facility] Insulin Human Lispro (Humalog*) 0 units SUBCUT AC [facility]; Protocol Levothyroxine Sodium (Synthroid Tab*) 100 mcg PO DAILY@0600 [facility] Melatonin (Melatonin) 3 mg PO BEDTIME PRN SLEEP Metoprolol Succinate (Toprol Xl Tab*) 50 mg PO DAILY [facility] Metronidazole (Flagyl Tab*) 500 mg PO Q8H [facility] Omeprazole (Prilosec Cap*) 20 mg PO DAILY@0600 [facility] Ondansetron HCl (Zofran Inj*) 4 mg IV Q4H PRN NAUSEA/VOMITING Senna (Senokot Tab*) 1 tab PO BID PRN CONSTIPATION Vital Signs - 8 hr 05/07/18 05/07/18 05/07/18 07:40 08:00 10:14 Temperature 97.4 F Pulse Rate 95 Respiratory 19 16 18 Rate Blood Pressure 123/77 (mmHg) O2 Sat by Pulse 98 Oximetry 05/07/18 05/07/18 11:43 12:59 Temperature 97.4 F Pulse Rate 88 Respiratory 20 18 Rate Blood Pressure 120/58 (mmHg) O2 Sat by Pulse 100 Oximetry Oxygen Devices in Use Now: None Appearance: Elderly male sitting in chair in NAD Eyes: No Scleral Icterus Ears/Nose/Mouth/Throat: Mucous Membranes Moist Neck: NL Appearance and Movements; NL JVP, Trachea Midline Respiratory: Symmetrical Chest Expansion and Respiratory Effort, Clear to Auscultation Cardiovascular: NL Sounds; No Murmurs; No JVD, RRR Abdominal: NL Sounds; No Tenderness; No Distention Extremities: No Edema Skin: No Rash or Ulcers Neurological: Alert and Oriented x 3, NL Sensation Lines/Tubes/Other Access: Clean, Dry and Intact Peripheral IV Nutrition: Taking PO's Result Diagrams: 05/02/18 07:04 05/04/18 09:09 Assess/Plan/Problems-Billing Assessment: Patient is an 88yo male with a PMH for Recurrent UTI, Renal Calculi, HFrEF, 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 - Patient Problems (1) Endocarditis of mitral valve Current Visit: Yes Status: Acute Code(s): I05.8 - OTHER RHEUMATIC MITRAL VALVE DISEASES SNOMED Code(s): 27600067 Comment: - Bioprosthetic valve - JUAN on 04/30 shows mobile density on mitral valve thought to be chronic, but this was not present on JUAN in July so it is likely acute; vegetation earlier this year was on aortic valve - Continue cefepime per ID for a total of 5 weeks; may need to change to zosyn for SNF placement (2) Cholecystitis Current Visit: Yes Status: Acute Code(s): K81.9 - CHOLECYSTITIS, UNSPECIFIED SNOMED Code(s): 63941551 Comment: - GB US shows wall thickening w/ polyps; possible cholecystitis vs malignancy - HIDA shows cystic duct obstruction and acute cholecystitis - Not an operative candidate as per surgery 2/2 current endocarditis - Low fat diet - MRCP today per GI recommendation to eval for concerns for malignancy seen on US - Continue cefepime and flagyl (3) Bacteremia due to Pseudomonas Current Visit: Yes Status: Acute Code(s): R78.81 - BACTEREMIA SNOMED Code( s): 1349619 Comment: - Blood Cultures positive for Pseudomonas, gallbladder source - 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 1/30/18 - Continue cefepime per ID (4) Transaminitis Current Visit: Yes Status: Acute Code(s): R74.0 - NONSPEC ELEV OF LEVELS OF TRANSAMNS & LACTIC ACID DEHYDRGNSE SNOMED Code(s): 421219883 Comment: - Resolved - 2/2 GB pathology (5) Diabetes mellitus type 2, controlled Current Visit: Yes Status: Acute Code(s): E11.9 - TYPE 2 DIABETES MELLITUS WITHOUT COMPLICATIONS SNOMED Code(s): 04176226 Comment: - Continue BG AC with Lispro SSI coverage with meals - A1c appropriate at 5.2 - Hold Metformin and resume at discharge (6) Atrial fibrillation Current Visit: No Status: Acute Code(s): I48.91 - UNSPECIFIED ATRIAL FIBRILLATION SNOMED Code(s): 63582737 Comment: - Paroxysmal - Continue metoprolol and digoxin - Change Eliquis to renal dosing per pharmacy (7) HFrEF (heart failure with reduced ejection fraction) Current Visit: Yes Status: Acute Code(s): I50.20 - UNSPECIFIED SYSTOLIC ( CONGESTIVE) HEART FAILURE SNOMED Code(s): 927201443 Comment: - EF 40-45% on recent Echo - No signs of fluid overload - Use fluids cautiously (8) Hypothyroid Current Visit: Yes Status: Chronic Code(s): E03.9 - HYPOTHYROIDISM, UNSPECIFIED SNOMED Code(s): 70269507 Comment: - Continue synthroid (9) DVT prophylaxis Current Visit: Yes Status: Acute Code(s): QIF2043 - SNOMED Code(s): 664270414 Comment: - Eliquis (10) DNR (do not resuscitate) Current Visit: Yes Status: Acute Comment: Status and Disposition: Inpatient. D/c plan will likely be STR because of frequency of antibiotics that will be required for 5 weeks.
[2018-05-07] MEDS: Atorvastatin* 10 MG TAB PO SCH (16:51)
[2018-05-07] MEDS: Digoxin TAB* 0.125 MG PO SCH (16:51)
[2018-05-08] MEDS: Acetaminophen TAB* 325 MG PO PRN (00:15)
[2018-05-08] MEDS: Omeprazole CAP* 20 MG PO SCH (05:49)
[2018-05-08] MEDS: metroNIDAZOLE TAB* 250 MG PO SCH ×3 (05:49→21:35)
[2018-05-08] MEDS: Levothyroxine TAB* 100 MCG TAB PO SCH (05:49)
--- NOTE | 2018-05-08 08:57 | PN ---
Subjective Date of Service: 05/08/18 Interval History: Mr. Concepcion feels about the same today. He continues to have consistent RUQ pain. This is worse with deep breathing and some movements. His appetite is not affected. Denies N/V. He is agreeable to placement to finish this course of IV antibiotics. He offers no other complaints. Up with assistance in room. Denies CP, SOB, diarrhea, dizziness. Family History: Unchanged from Admission Social History: Unchanged from Admission Past Medical History: Unchanged from Admission Objective Active Medications: Acetaminophen (Tylenol Tab*) 650 mg PO Q4H PRN FEVER/PAIN Apixaban (Eliquis*) 2.5 mg PO BID [facility] Atorvastatin Calcium (Lipitor*) 10 mg PO 1700 [facility] Dextrose (D50w Syringe 50 Ml*) 12.5 gm IV PUSH .FOR FS < 60 - SS PRN FS < 60 Digoxin (Lanoxin Tab*) 0.125 mg PO 1700 [facility] Docusate Sodium (Colace Cap*) 100 mg PO BID PRN CONSTIPATION Gabapentin (Neurontin Cap(*)) 100 mg PO BID [facility] Cefepime HCl (Maxipime 1 Gm In Dextrose Duplex (*)) 1 gm in 50 mls @ 100 mls/ hr IV Q12H [facility] Insulin Human Lispro (Humalog*) 0 units SUBCUT AC [facility]; Protocol Levothyroxine Sodium (Synthroid Tab*) 100 mcg PO DAILY@0600 [facility] Melatonin (Melatonin) 3 mg PO BEDTIME PRN SLEEP Metoprolol Succinate (Toprol Xl Tab*) 50 mg PO DAILY [facility] Metronidazole (Flagyl Tab*) 500 mg PO Q8H [facility] Omeprazole (Prilosec Cap*) 20 mg PO DAILY@0600 [facility] Ondansetron HCl (Zofran Inj*) 4 mg IV Q4H PRN NAUSEA/VOMITING Senna (Senokot Tab*) 1 tab PO BID PRN CONSTIPATION Vital Signs - 8 hr 05/08/18 04:37 Temperature 97.8 F Pulse Rate 77 Respiratory 16 Rate Blood Pressure 152/68 (mmHg) O2 Sat by Pulse 98 Oximetry Oxygen Devices in Use Now: None Appearance: Elderly male laying in bed in NAD Eyes: No Scleral Icterus Ears/Nose/Mouth/Throat: Mucous Membranes Moist Neck: NL Appearance and Movements; NL JVP, Trachea Midline Respiratory: Symmetrical Chest Expansion and Respiratory Effort, Clear to Auscultation Cardiovascular: NL Sounds; No Murmurs; No JVD, RRR Abdominal: - - Mild tenderness to palpation throughout Extremities: No Edema Skin: No Rash or Ulcers Neurological: Alert and Oriented x 3, NL Sensation Lines/Tubes/Other Access: Clean, Dry and Intact Peripheral IV Nutrition: Taking PO's Result Diagrams: 05/02/18 07:04 05/04/18 09:09 Assess/Plan/Problems-Billing Assessment: Patient is an 88yo male with a PMH for Recurrent UTI, Renal Calculi, HFrEF, 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 - Patient Problems (1) Endocarditis of mitral valve Current Visit: Yes Status: Acute Code(s): I05.8 - OTHER RHEUMATIC MITRAL VALVE DISEASES SNOMED Code(s): 85672925 Comment: - Bioprosthetic valve - JUAN on 04/30 shows mobile density on mitral valve thought to be chronic, but this was not present on JUAN in July so it is likely acute; vegetation earlier this year was on aortic valve - Continue cefepime per ID for a total of 5 weeks; may need to change to zosyn for SNF placement d/t cost (2) Cholecystitis Current Visit: Yes Status: Acute Code(s): K81.9 - CHOLECYSTITIS, UNSPECIFIED SNOMED Code(s): 42098267 Comment: - GB US shows wall thickening w/ polyps; possible cholecystitis vs malignancy - HIDA shows cystic duct obstruction and acute cholecystitis - Not an operative candidate as per surgery 2/2 current endocarditis - Low fat diet - MRCP today per GI recommendation to eval for concerns for malignancy seen on US - Continue cefepime and flagyl; 1 week of flagyl per ID (3) Bacteremia due to Pseudomonas Current Visit: Yes Status: Acute Code(s): R78.81 - BACTEREMIA SNOMED Code( s): 0249149 Comment: - Blood Cultures positive for Pseudomonas, gallbladder source - 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 - Continue cefepime per ID (4) Transaminitis Current Visit: Yes Status: Acute Code(s): R74.0 - NONSPEC ELEV OF LEVELS OF TRANSAMNS & LACTIC ACID DEHYDRGNSE SNOMED Code(s): 970185252 Comment: - Resolved - 2/2 GB pathology (5) Diabetes mellitus type 2, controlled Current Visit: Yes Status: Acute Code(s): E11.9 - TYPE 2 DIABETES MELLITUS WITHOUT COMPLICATIONS SNOMED Code(s): 10818498 Comment: - Continue BG AC with Lispro SSI coverage with meals - A1c appropriate at 5.2 - Hold Metformin and resume at discharge (6) Atrial fibrillation Current Visit: No Status: Acute Code(s): I48.91 - UNSPECIFIED ATRIAL FIBRILLATION SNOMED Code(s): 88459590 Comment: - Paroxysmal - Continue metoprolol and digoxin - Change Eliquis to renal dosing per pharmacy (7) HFrEF (heart failure with reduced ejection fraction) Current Visit: Yes Status: Acute Code(s): I50.20 - UNSPECIFIED SYSTOLIC ( CONGESTIVE) HEART FAILURE SNOMED Code(s): 842479511 Comment: - EF 40-45% on recent Echo - No signs of fluid overload - Use fluids cautiously (8) Hypothyroid Current Visit: Yes Status: Chronic Code(s): E03.9 - HYPOTHYROIDISM, UNSPECIFIED SNOMED Code(s): 00004577 Comment: - Continue synthroid (9) DVT prophylaxis Current Visit: Yes Status: Acute Code(s): WLK0521 - SNOMED Code(s): 711128909 Comment: - Eliquis (10) DNR (do not resuscitate) Current Visit: Yes Status: Acute Comment: Status and Disposition: Inpatient. D/c to [facility] for completion of IV antibiotics. Likely tomorrow as he will have MRCP and PICC today.
[2018-05-08] MEDS: Apixaban* 2.5 MG TAB PO SCH ×2 (10:13→21:34)
[2018-05-08] MEDS: Metoprolol Succinate XL TAB* 50 MG PO SCH (10:13)
[2018-05-08] MEDS: Gabapentin CAP(*) 100 MG PO SCH ×2 (10:13→21:35)
[2018-05-08] MEDS: Cefepime 1 GM in Dextrose(*) 1 GM/50 ML BAG IV SCH ×2 (10:40→21:30)
[2018-05-08] MEDS: Insulin LISPRO* 1 UNITS UNIT SUBCUT SCH ×4 (10:48→21:33)
[2018-05-08] MEDS: Digoxin TAB* 0.125 MG PO SCH (18:25)
[2018-05-08] MEDS: Atorvastatin* 10 MG TAB PO SCH (18:25)
[2018-05-09] MEDS: Levothyroxine TAB* 100 MCG TAB PO SCH (05:50)
[2018-05-09] MEDS: Omeprazole CAP* 20 MG PO SCH (05:50)
[2018-05-09] MEDS: metroNIDAZOLE TAB* 250 MG PO SCH ×2 (05:51→13:23)
[2018-05-09] MEDS: Gabapentin CAP(*) 100 MG PO SCH (10:38)
[2018-05-09] MEDS: Metoprolol Succinate XL TAB* 50 MG PO SCH (10:38)
[2018-05-09] MEDS: Cefepime 1 GM in Dextrose(*) 1 GM/50 ML BAG IV SCH (10:39)
[2018-05-09] MEDS: Insulin LISPRO* 1 UNITS UNIT SUBCUT SCH ×4 (10:39→13:23)
[2018-05-09] MEDS: Apixaban* 2.5 MG TAB PO SCH (10:39)
--- NOTE | 2018-05-09 15:21 | DS ---
CC: Maylin Kinsey NP; [facility]; Dr. Aly Holly, [facility]; Dr. Suhas Abdalla; Dr. Karina Arnold of General Surgery * DATE OF ADMISSION: 03/27/2018. DATE OF DISCHARGE: 04/08/2018. PRIMARY CARE PHYSICIAN: Maylin Kinsey NP. MY ATTENDING PHYSICIAN WHILE IN THE HOSPITAL: Dr. Raven Jones * (dictated by OLAMIDE Barnett). 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 SECONDARY DISCHARGE DIAGNOSES: Pancreatic mass, atrial fibrillation, chronic congestive heart failure, EF of 40 to 45 percent, paroxysmal atrial fibrillation, diabetes mellitus type 2, history of nephrolithiasis, coronary artery disease, hypothyroidism, BPH, vitamin B12 deficiency. STUDIES DONE WHILE IN THE HOSPITAL: 1. Brain CT from 04/26/2018, read as: No acute intracranial abnormality. Age- related atrophy and mild chronic small vessel ischemic disease. Chronic left CRIBBER territorial infarct. 2. Chest x-ray from 04/26/2018, read as: No radiographic evidence of acute cardiopulmonary abnormality. 3. Gallbladder ultrasound from 04/26/2018, read as: No gallstones, wall thickening, pericholecystic fluid, or Thomas's sign. Common bile duct 0.4 cm. 4. Abdomen and bladder ultrasound from 04/27/2018, read as: No obstructing right renal calyceal stone. 151 prevoid bladder volume. The patient was unable to void spontaneously. When compared to the previous CT examination, there appears to be a calculus of the urethra at the inferior margin of what appears to be transurethral resection of the prostate. 5. Transesophageal echocardiogram from 04/28/2018, read as: Mildly decreased left ventricular systolic function. The left atrium is moderately dilated. The right ventricle is mildly dilated. The right ventricular global systolic function is mildly reduced. There is no aortic vegetation present. A bioprosthetic mitral valve is present with abnormalities with visualized mobile highly echodense abnormality. 6. Chest x-ray from 04/28/2018, read as: Low lung volumes with mild bibasilar atelectasis and trace pleural effusions. Inflammatory infiltrates at the lung bases not excluded. 7. Gallbladder ultrasound from 05/01/2018, read as: No shadowing gallstones. Irregular gallbladder wall thickening and small gallbladder polyps are present. While these findings may be secondary to underlying hepatic dysfunction or chronic infection, underlying malignancy cannot be excluded. If there is continued concern for cholecystitis, a HIDA scan may be helpful. If there is clinical concern for malignancy, MRCP is suggested. 5 mm nonobstructing right renal calculus. Complex cystic mass in the pancreatic body as seen on recent abdominal CT. Again recommend follow-up CT or MRI in six months. Trace ascites. Small right pleural effusion. 8. HIDA scan from 05/02/2018, read as: Nonvisualization of the gallbladder to three hours post radiopharmaceutical administration consistent with cystic duct obstruction/acute cholecystitis. Patent common bile duct. 9. MRCP from 05/08/2018, read as: Multiloculated cystic lesion predominantly raising from the neck of the pancreas which may be related to the main pancreatic duct measuring up to 2.8 x 3.7 x 2.4 cm. This may represent intraductal papillary mucinous neoplasms. Further evaluation with endoscopic ultrasound should be considered. Differential diagnoses includes chronic pancreatitis, mucinous cystadenoma or serous cystadenoma. The ultrasound on prior exam demonstrates question of a mural nodule in this lesion. 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 These all measure up to 10 mm. The gallbladder demonstrates multiple gallstones. MEDICATIONS AT DISCHARGE: 1. Cefepime 1 gm IV q.12 hours. 2. Tylenol 650 mg p.o. q.6 hours as needed. 3. Metoprolol Succinate 50 mg p.o. daily. 4. Eliquis 2.5 mg p.o. daily. 5. Lipitor 10 mg p.o. daily. 6. Digoxin 0.125 mg p.o. nightly. 7. Docusate 100 mg p.o. b.i.d. as needed. 8. Gabapentin 100 mg p.o. b.i.d. 9. Heparin flush 1 to 3 ml flush b.i.d. 10. Synthroid 100 mg p.o. daily. 11. Melatonin 3 mg p.o. at bedtime as needed. 12. Omeprazole 20 mg p.o. daily. 13. Ascorbic acid 500 mg p.o. daily. 14. Folic acid 1 mg p.o. daily. 15. Metformin 500 mg p.o. b.i.d. 16. Ferrous Sulfate 325 mg p.o. daily. 17. Vitamin B12 500 mcg p.o. daily. HOSPITAL COURSE: This is a brief summary of the patient's complex hospitalization. For more details, please see the history and physical from Dr. Abida Lane on 04/27/2018 as well as the medical record. In brief, the patient is an 88-year-old male with a past medical history significant for the above who presented to the emergency department with several days of urinary symptoms, altered mental status and abdominal pain and fevers. The patient, in the emergency department, had a CT as above as well as gallbladder ultrasound. Initially, the patient was not believed to have cholecystitis due to negative Thomas sign and normal gallbladder ultrasound. The patient had elevated LFT's which trended down quickly. The patient had no chest pain. The patient had only one hypotensive blood pressure reading. The patient was not tachycardic on admission. The patient did have an elevated temperature on presentation. The patient had a urine culture and blood cultures. The patient's blood cultures grew pseudomonas aeruginosa. The patient's urine culture grew ha likely representing a contaminate. The patient had a urinalysis indicating a possible UTI. The patient had previously been on Doxycycline with concern for a facial cellulitis which had resolved. The patient, due to concern for recurrent endocarditis, had a transesophageal echocardiogram which showed a mobile mass as above. The patient was seen in consultation by Dr. Suhas Abdalla of Infectious Disease who believed that this could represent a pseudomonas endocarditis and recommended Cefepime 1 gm q.12 hours for five weeks. The patient continued to have pain in his abdomen. The patient had a repeat gallbladder ultrasound which was read as above and had a consultation with Dr. Karina Arnold who believed this represented cholecystitis. The patient was not a candidate for cholecystectomy and recommended conservative treatment with antibiotics. The patient was started on Flagyl in addition to his Cefepime. The patient had concerning findings on his gallbladder ultrasound and it was recommended to follow-up with an MRCP to fully evaluate the pancreas and the gallbladder. The patient had IV antibiotics while an inpatient. The patient had a slow decrease in his abdominal pain with antibiotics. The patient had good blood sugar control. The patient had a negative viral hepatitis panel. The patient's liver function test returned normal. The patient had an MRCP on 05/08/2018 which showed a large cystic mass which was previously seen on ultrasound and CT, but with no conservative gallbladder mass. This mass was discussed for the possibility of endoscopic ultrasound with gastroenterology and they stated that this was not available in the area and could not comment on whether or not this lesion would need to be biopsied with endoscopic ultrasound and recommended consultation with Dr. Aly Holly of [facility] outpatient. The patient had tachycardia with a rate of approximately 110 with an irregular rhythm on the morning of 05/09/2018 which resolved by the time an EKG could be obtained likely representing paroxysmal atrial fibrillation. The patient completed a seven day course of Flagyl while in the hospital. The patient is stable and amenable for discharge on 05/09/2018. PHYSICAL EXAMINATION ON THE DAY OF DISCHARGE: General: The patient is 88-year- old male who appears his stated age and sitting comfortably in bed in no acute distress. Vital Signs at the time of discharge: Temperature 97.1, pulse rate 87, respiratory rate 18, oxygen saturation 100 percent on room air, blood pressure 104/72. HEENT: Head normocephalic, atraumatic. Scleral nonicteric. No conjunctival injection. Nasal mucosa moist. Oral mucosa moist. No previous erythema, discharge, or exudate. Neck: Supple, nontender. No lymphadenopathy. No carotid bruit auscultated. No JVD. Cardiac: Regular rate and rhythm. No clicks, murmurs, gallops or rubs. Pulse 2+ in bilateral dorsalis pedis, posterior tibialis, and radial areas. Respiratory: Clear to auscultation bilaterally. No wheezes, rubs, or rhonchi. Good air exchange bilaterally. Abdomen: Soft, nontender, nondistended. Bowel sounds present. Normoactive in all four quadrants. No hepatosplenomegaly. No abdominal bruits auscultated. No hepatojugular reflux. Negative Thomas sign. Genitourinary: No suprapubic or CVA tenderness. Skin: Bruising along both arms. PICC line in place. No other rash or ulcer. Neuro: Cranial nerves II through XII intact. Weakness consistent with previous examinations. No other focal deficits. Psychiatric: Pleasant and cooperative. DISCHARGE PLAN: The patient will be discharged to [facility] to complete a total of five weeks of Cefepime. The patient's Cefepime was started on 04/27/2018 and should continue five weeks from that day. The patient completed seven days of Flagyl while in the hospital. This will not be continued. The patient should follow-up with Dr. Suhas Abdalla around the time of the discontinuation of his antibiotics to discuss whether or not he would need a repeat transesophageal echocardiogram to ensure resolution of his pseudomonas and to generally monitor his progress. The patient should follow- up with Dr. Aly Holly, an appointment has been made on 06/21/2018 at 1:30 p.m. Arrangements for this appointment should be made as he will need to be transported to [place]. The patient has good blood sugar control and will be continued on his Metformin. The patient should have a weekly CBC, BMP, and CRP while he is on antibiotics. The patient will be continued on his supplements as above. The patient will be continued on his rate control medications as above. The patient should have a heart healthy diet without caffeine, with consistent carbohydrates. The patient should engage in activity as tolerated. The patient should engage in PT and OT with the hope of being able to return to his previous assisted living state after discharge. The patient should follow- up with his various specialists as needed for issues that may arise. The patient should be seen in consultation as an outpatient by Dr. Karina Arnold after the completion of his antibiotics for consideration of cholecystectomy. The possibility of cholecystectomy and biopsy of this pancreatic lesion should be considered to be done at the same time to decrease the risk of possible anesthesia related complications. The patient should return to the hospital for alarming systems such as high fevers, chest pain, shortness of breath, passing out, or uncontrollable bleeding. TIME SPENT: Approximately 75 minutes were spent on the discharge of this patient, 45 of which were spent [id number] with the patient obtaining history and physical and discussing treatment plan with both him and his son. This discharge summary may serve as a history and physical for [facility]. OLAMIDE BARNETT [id number]/[facility] #: [id number] ROSELIA
[2018-05-09 16:11] VITALS: BP 136/55
== END 2018-05-09 16:45 | DRG 314 ==
LOC: ED 19:41 → MED 04-27 02:17
PROVIDERS: ADMIT Pediatrics; ATTEND Hospitalist
PROC: B24BZZ4 Ultrasonography of Heart with Aorta, Transesophageal (ICD-10-PCS; principal; 2018-04-30 09:30)
PROC: 02HV33Z Insertion of Infusion Device into Superior Vena Cava, Percutaneous Approach (ICD-10-PCS; 2018-05-08)
DX: T82.6XXA Infection and inflammatory reaction due to cardiac valve prosthesis, initial encounter (principal); I33.0 Acute and subacute infective endocarditis; K80.40 Calculus of bile duct with cholecystitis, unspecified, without obstruction; R78.81 Bacteremia; N13.6 Pyonephrosis; I50.22 Chronic systolic (congestive) heart failure; R18.8 Other ascites; K86.2 Cyst of pancreas; I48.91 Unspecified atrial fibrillation; I25.10 Atherosclerotic heart disease of native coronary artery without angina pectoris; E11.9 Type 2 diabetes mellitus without complications; N40.0 Benign prostatic hyperplasia without lower urinary tract symptoms; D64.9 Anemia, unspecified; E03.9 Hypothyroidism, unspecified; Z66 Do not resuscitate; I11.0 Hypertensive heart disease with heart failure; K21.9 Gastro-esophageal reflux disease without esophagitis; B96.5 Pseudomonas (aeruginosa) (mallei) (pseudomallei) as the cause of diseases classified elsewhere; H54.62 Unqualified visual loss, left eye, normal vision right eye; R40.2412 Glasgow coma scale score 13-15, at arrival to emergency department; K86.89 Other specified diseases of pancreas; F03.90 Unspecified dementia, unspecified severity, without behavioral disturbance, psychotic disturbance, mood disturbance, and anxiety; I48.0 Paroxysmal atrial fibrillation; E53.8 Deficiency of other specified B group vitamins; Z87.440 Personal history of urinary (tract) infections; Z79.84 Long term (current) use of oral hypoglycemic drugs; Z86.73 Personal history of transient ischemic attack (TIA), and cerebral infarction without residual deficits; Z95.2 Presence of prosthetic heart valve; Z87.442 Personal history of urinary calculi; Z86.79 Personal history of other diseases of the circulatory system; Z79.01 Long term (current) use of anticoagulants; Z98.41 Cataract extraction status, right eye; Z82.49 Family history of ischemic heart disease and other diseases of the circulatory system; I95.9 Hypotension, unspecified
CPT/HCPCS: 36415; 70450; 71045; 74177; 74181; 76376; 76705; 76770; 78226; 80048; 80053; 80074; 80076; 80162; 80202; 81003; 81015; 82140; 82150; 82607; 82746; 83036; 83605; 83690; 83735; 83880; 84153; 84154; 84443; 84484; 85014; 85018; 85025; 85060; 85610; 86140; 87040; 87077; 87086; 87106; 87186; 87205; 87641; 93005; 93312; 93325; 99156; 99157; 99284; A9270-GY; A9537; C1751; G8978-GP-CH; G8979-GP-CH; G8980-GP-CH; J0692; J0696; J0744; J2250; J2270; J2310; J2405; J2543; J3010; J3370; J3475; Q9967

== ENCOUNTER 2018-05-25 11:00 | Inpatient (IN) | payer MEDICARE, BC ==
--- NOTE | 2018-05-25 11:22 | ED ---
Neurological HPI - HPI Summary HPI Summary: Patient is a 88 y/o M presenting to ED from [facility] via ambulance as a margarita crespo with complaints of unresponsiveness and drooling. Margarita crespo called at 1055 upon patient arrival, patient to CT immediately at 1055. Provider in to evaluate patient at [address] Dr. López from [facility], patient was at breakfast this morning at approximately 1000 when he was found to be drooling and unresponsive. There were concerns for stroke as patient has PMHx of MCA. Dr. López did not notice any new weakness. In room, patient is responsive, A&Ox2. He denies pain and nausea. PMHx of endocarditis, dementia, patient is on cefepime. Patient is also on apixiban and is not a TPA candidate. In room, pulse 95, BP 112/54, temp was 102.1 F. On triage, nothing is noted to aggravate/alleviate Sx. Home medications and allergies are reviewed. - History of Current Complaint Stated Complaint: MARGARITA ALBARRAN Hx Obtained From: Patient Onset/Duration: Sudden Onset, Started hours ago - onset around 1000, Still Present Timing: Constant Current Severity: None - pain denied Pain Scale Used: 0-10 Numeric - 0/10 Character: Confusion, Other: - drooling Aggravating: Nothing Alleviating: Nothing Associated Signs and Symptoms: Positive: Confusion, Fever. Negative: Nausea/ Vomiting - Additional Pertinent History Primary Care Physician: ADELINE - Allergy/Home Medications Allergies/Adverse Reactions: Allergies Allergy/AdvReac Type Severity Reaction Status Date / Time No Known Allergies Allergy Verified 04/18/14 13:29 Home Medications: Home Medications Artificial Tears* 15 ML BTL [Polyvinyl Alcohol 1.4% OPTH*] 1 drop BOTH EYES TID PRN 05/25/18 [History Confirmed 05/25/18] Heparin FLUSH PICC/ML/CVC(*) 1 - 3 ml FLUSH 0600,1800 PRN 05/25/18 [History Confirmed 05/25/18] Levothyroxine TAB* [Synthroid 100 MCG TAB*] 100 mcg PO QAM 05/25/18 [History Confirmed 05/25/18] PMH/Surg Hx/FS Hx/Imm Hx Endocrine/Hematology History: Reports: Hx Anticoagulant Therapy - Eliquis, Hx Diabetes, Hx Thyroid Disease - hypothyroid, Hx Anemia Cardiovascular History: Reports: Hx Atrial Fibrillation, Hx Coronary Artery Disease, Hx Hypertension, Hx Valvular Heart Disease - Mitral valve prolapse Denies: Hx Pacemaker/ICD History: Reports: Hx Benign Prostatic Hyperplasia, Hx Kidney Infection, Hx Kidney Stones, Other Problems/Disorders - Recent ureter stent removal with Dr. Chavez 07/28/17 Sensory History: Reports: Hx Contacts or Glasses, Hx Legally Blind - left eye Denies: Hx Hearing Aid Opthamlomology History: Reports: Hx Contacts or Glasses, Hx Legally Blind - left eye Neurological History: Reports: Hx CVA - x2, Hx Dementia, Hx Transient Ischemic Attacks (TIA), Other Neuro Impairments/Disorders - Hemiplegia and hemiparesis Psychiatric History: Denies: Hx Panic Disorder - Surgical History Surgery Procedure, Year, and Place: rtc 11/26, cataracts rt eye,heart valve,t&a, kidney stone,prostate - Family History Known Family History: Positive: Cardiac Disease - Social History Alcohol Use: None Hx Substance Use: No Substance Use Type: Reports: None Hx Tobacco Use: No Smoking Status (MU): Never Smoked Tobacco Review of Systems Positive: Fever, Other - denies pain, reported to have been drooling Negative: Nausea Neurological: Other - altered mental status All Other Systems Reviewed And Are Negative: Yes Physical Exam - Summary Physical Exam Summary: Appearance: The patient is well-nourished in no acute distress and in no acute pain. Skin: The skin is warm and dry and skin color reflects adequate perfusion. PICC line in right arm. HEENT: The head is normocephalic and atraumatic. The pupils are equal and reactive. The conjunctivae are clear and without drainage. Nares are patent and without drainage. Mouth reveals moist mucous membranes and the throat is without erythema and exudate. The external ears are intact. The ear canals are patent and without drainage. The tympanic membranes are intact. Neck: The neck is supple with full range of motion and non-tender. There are no carotid bruits. There is no neck vein distension. Respiratory: Chest is non-tender. Lungs are clear to auscultation and breath sounds are symmetrical and equal. Cardiovascular: Heart is regular rate and rhythm. There is no murmur or rub auscultated. There is no peripheral edema and pulses are symmetrical and equal. Abdomen: The abdomen is soft and non-tender. There are normal bowel sounds heard in all four quadrants and there is no organomegaly palpated. Musculoskeletal: There is no back tenderness noted. Extremities are non-tender with full range of motion. There is good capillary refill. There is no peripheral edema or calf tenderness elicited. Neurological: The patient has symmetrical motor strength in all four extremities. Cranial nerves are grossly intact. Deep tendon reflexes are symmetrical and equal in all four extremities. GCS 14, NIH 2. Patient is A&Ox2. Psychiatric: The patient has an appropriate affect and does not exhibit any anxiety or depression. Triage Information Reviewed: Yes Vital Signs On Initial Exam: Initial Vitals Temp Pulse Resp BP Pulse Ox 102.1 F 96 18 86/48 96 05/25/18 11:15 05/25/18 11:15 05/25/18 11:15 05/25/18 11:15 05/25/18 11:15 Vital Signs Reviewed: Yes - Norm Coma Scale Best Eye Response: 3 - To Speech Best Motor Response: 6 - Obeys Commands Best Verbal Response: 5 - Oriented Coma Scale Total: 14 Diagnostics - Laboratory Result Diagrams: 05/25/18 11:50 05/25/18 15:51 Lab Statement: Any lab studies that have been ordered have been reviewed, and results considered in the medical decision making process. - Radiology CXR Radiology Interpretation Completed By: Radiologist Summary of Radiographic Findings: CXR IMPRESSION: NO EVIDENCE FOR ACUTE DISEASE. THIS REPORT WAS REVIEWED BY ED PHYSICIAN. - CT BRAIN CT CT Interpretation Completed By: Radiologist Summary of CT Findings: BRAIN CT IMPRESSION: 1. NO ACUTE INTRACRANIAL PATHOLOGY. 2. DIFFUSE INVOLUTIONAL CHANGE WITH CHRONIC SMALL VESSEL ISCHEMIC CHANGES, AND EVIDENCE. OF REMOTE INFARCT.. THIS REPORT WAS REVIEWED BY ED PHYSICIAN. NIH Scale - NIH Scale Level of Consciousness: Alert/Keenly Responsive Ask Patient the Month and His/Her Age: Both Correct Ask Pt to Open/Close Eyes and Dental Office Receptionist/Release Non-Paretic Hand: Both Correctly Best Gaze (Only Horizontal Eye Movement): Normal Visual Field Testing: No Visual Loss Facial Paresis-Pt to Smile & Close Eyes or Grimace Symmetry: Normal/Symmetrical Motor Function - Right Arm: No Drift-Holds 10 Seconds Motor Function - Left Arm: No Drift-Holds 10 Seconds Motor Function - Right Leg: No Drift-Holds 10 Seconds Motor Function - Left Leg: No Drift-Holds 10 Seconds Limb Ataxia-Must be out of Proportion to Weakness Present: Absent Sensory (Use Pinprick to Test Arms/Legs/Trunk/Face): Normal Best Language (Describe Picture, Name Items): Some Loss Dysarthria (Read Several Words): Normal Extinction and Inattention: Inattention Total Score: 2 Re-Evaluation - Re-Evaluation First Eval Re-Evaluation Time: 11:20 Change: Unchanged Comment: Charge nurse Brittney informs Dr. Mccallum and Dr. Fortune of negative brain CT. Second Eval Re-Evaluation Time: 12:10 Comment: Rectal temp of 102.7 F, tylenol to be ordered Course/Dx - Course Course Of Treatment: Mr. Concepcion became suddenly much less responsive without focal finding about 30 minutes prior to his arrival in the emergency department. I was in a procedure when he arrived but had been warned that he was coming and that he was a possible code crespo, therefore a code zak was called immediately. I met the patient in the room as he returned from CT scanner in the company of Dr. Fortune. He was doing better than had been reported earlier at that point and was able to answer questions and cooperative to the exam to some extent. His NIH stroke scale was 3 and he was not considered to be a thrombolytic candidate. It became increasingly clear that it was more likely that he was suffering from sepsis. Fluids and antibiotics were ordered. He has many potential sources including his endocarditis, his gallbladder and his PICC line. The hospitalist service was contacted for admission - Diagnoses Provider Diagnoses: Sepsis During the Visit The Following Alert/Code Occurred: Code Albarran - 1055 called - Physician Notifications Discussed Care Of Patient With: Caridad Fortune Time Discussed With Above Provider: 11:13 Instructed by Provider To: Other - Dr. Fortune in room to evaluate patient with Dr. Mcacllum at 1113. 1121 - after evaluation, Dr. Fortune recommends admission. 1304 - Patient's case was discussed with Dr. Christie, Dr. Christie accepts patient for admission. - Critical Care Time Critical Care Time: 30-74 min Discharge - Sign-Out/Discharge Documenting (check all that apply): Patient Departure - admit - Discharge Plan Condition: Good Disposition: ADMITTED TO [facility] - Billing Disposition and Condition Condition: GOOD Disposition: Admitted to [facility] - Attestation Statements Document Initiated by Scribe: Yes Documenting Scribe: VIKTORIA VAZ Provider For Whom Scribe is Documenting (Include Credential): ALEJA MCCALLUM MD Scribe Attestation: I, VIKTORIA VAZ , scribed for ALEJA MCCALLUM MD on 05/25/18 at 2012. Scribe Documentation Reviewed: Yes Provider Attestation: The documentation as recorded by the VIKTORIA abdul accurately reflects the service I personally performed and the decisions made by me, ALEJA MCCALLUM MD Status of Scribe Document: Viewed
[2018-05-25] MEDS ORDERED: NS 0.9% 1000 ML* 1,000 ML IV ONE (11:28)
[2018-05-25] MEDS ORDERED: Acetaminophen TAB* 325 MG PO ONE (11:57)
[2018-05-25 12:10] LABS: Activated Partial Thrombo Time 30.6 seconds (26.0-36.3); INR 1.14 (0.77-1.02)
[2018-05-25 12:21] LABS: Albumin 3.2 g/dL (3.2-5.2); Albumin/Globulin Ratio 1.3 (1-3); Calcium 8.6 mg/dL (8.6-10.3); EGFR Non-African American 70.7 (>60); Globulin 2.5 g/dL (2-4); Potassium 4.2 mmol/L (3.5-5.0); Total Bilirubin 4.2 mg/dL (0.2-1.0); Total Protein 5.7 g/dL (6.4-8.9)
--- NOTE | 2018-05-25 12:30 | CONSULT ---
Consult Consult: Neurology- Inpatient Consult Note NAME: Wai Concepcion Reason for consult: Neurology was consulted by Dr. Junito Mccallum for possible stroke. Siddhartha crespo was activated. The history was obtained by reviewing the electronic medical records as the patient has dementia and is unable to provide a detail Chief complaint: episode of confusion History of Present Illness: Mr. Concepcion is an 88-year-old extremely ill man who has a past medical history of pseudomonas endocarditis, cholecystitis, who was recently hospitalized [place] [facility] [place] and was hospitalized for a total of 12 days. He was put on Cefepime for on 04/27/2018 and was instructed to continue IV antibiotic treatment via right PICC line for a total of 5 weeks. He was being treated for the endocarditis. The patient does have history of a small left lacunar stroke with no residual deficits. I spoke with NAGEL Yip at [facility] today at 1150 am. She informed me that the patient was "sitting and shivering uncontrollably at 0930-10 a.m. " The provider that evaluated him, Dr. López, had said that "he had him in the hospital before and has history of stroke," so they were concerned about stroke. She did not notice any new weakness. He is alert and oriented x 3 at baseline. He walks with a walker. He can feed himself but he needs assistance bathing and brushing teeth. He needs help for "pull up." He is occasionally incontinent bladder. The patient in the ED was noticed to be hypotensive with SBP in the 80's, febrile with a temperature of 102.7 and incoherent. He was not complaining of any focal weakness or paresthesia. He has chronic left shoulder pain with restricted in movement. He had denied any headache. He knew he had breakfast this morning but does not recall what. He also knew who the president is. He was evaluated by me and Dr. Mccallum and thought that his presentation may have been related to sepsis and not a focal neurological problem. The patient's NIHSS was 3 for confusion and slight word finding difficulty (related to his confusion). He was having trouble naming objects but he does not currently have his glasses. Siddhartha crespo activated at 1055, assessed the patient at 1057, deemed not a candidate for IV tPA at 1115 due to presentation is most likely related to sepsis and the patient is on anticoagulation therapy. He was not seen completely normal this morning and his last known well is unknown. However, Phi informed me today that his onset of symptoms was around 930 a.m. The patient denied any CP, SOB, or palpitation. He denied any recent sick exposures. He denied any diarrhea or cough. Labs, Imaging and Other Diagnostics: No available labs yet. IMAGING: CT head without contrast on 05/25/2018- remote left MCA vascular territory infarction. Diffuse cortical atrophy. Diffuse white matter changes consistent with chronic small vessel ischemic changes. 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 Otherwise, limited as the patient is unable to provide history. Medications: Ascorbic Acid TAB* [Vitamin C TAB*] 500 mg PO DAILY #30 tab 08/25/17 [Rx Confirmed 05/25/18] metFORMIN* [Glucophage 500 MG TAB *] 500 mg PO BID #60 tab 08/25/17 [Rx Confirmed 05/25/18] Cyanocobalamin TAB* [Vitamin B12 TAB*] 500 mcg PO DAILY 04/27/18 [History Confirmed 05/25/18] Ferrous Sulfate TAB* 325 mg PO DAILY 04/27/18 [History Confirmed 05/25/18] Acetaminophen TAB* [Tylenol TAB*] 650 mg PO Q4H PRN tab 05/09/18 [Rx Confirmed 05/25/18] Apixaban* [Eliquis*] 2.5 mg PO BID tab 05/09/18 [Rx Confirmed 05/25/18] Atorvastatin* [Lipitor 10 MG*] 10 mg PO 1700 tab 05/09/18 [Rx Confirmed ] Cefepime 1 GM in Dextrose(*) [Cefepime 1 gm/50 ML *] 1 gm IV Q12H #48 ivpb 05/09 [Rx Confirmed 05/25/18] Digoxin TAB* [Lanoxin TAB*] 0.125 mg PO 1700 tab 05/09/18 [Rx Confirmed ] Docusate CAP* [Colace Cap*] 100 mg PO BID PRN cap 05/09/18 [Rx Confirmed ] Gabapentin CAP(*) [Neurontin 100 mg CAP(*)] 100 mg PO BID cap 05/09/18 [Rx Confirmed 05/25/18] Melatonin 3 mg PO BEDTIME PRN tab 05/09/18 [Rx Confirmed 05/25/18] Metoprolol Succinate XL TAB* [Toprol XL TAB*] 50 mg PO DAILY tab.xl 05/09/18 [ Rx Confirmed 05/25/18] Omeprazole CAP* [Prilosec CAP* 20 MG] 20 mg PO DAILY@0600 cap 05/09/18 [Rx Confirmed 05/25/18] Artificial Tears* 15 ML BTL [Polyvinyl Alcohol 1.4% OPTH*] 1 drop BOTH EYES TID PRN 05/25/18 [History Confirmed 05/25/18] Heparin FLUSH PICC/ML/CVC(*) 1 - 3 ml FLUSH 0600,1800 PRN 05/25/18 [History Confirmed 05/25/18] Levothyroxine TAB* [Synthroid 100 MCG TAB*] 100 mcg PO QAM 05/25/18 [History Confirmed 05/25/18] Active medications: Sodium Chloride (Ns 0.9% 1000 Ml*) 1,000 mls @ 1,000 mls/hr IV .PER RATE ONE Stop: 05/25/18 12:27 Allergies: NKDA Review of Systems: A 14-point ROS was obtained and otherwise negative except for what was mentioned in the HPI. Physical Exam: Vitals: Vital Signs - 12 hr Temp Pulse Resp BP Pulse Ox 05/25/18 12:00 102.7 F 05/25/18 11:34 93 26 101/42 96 05/25/18 11:31 94 26 96 05/25/18 11:15 102.1 F 96 18 86/48 96 General: ill appearing frail man in no acute distress Head: normocephalic, without obvious abnormality Eyes: conjunctivae/corneas clear Neck: supple, symmetrical. No carotid bruit. No lymphadenopathy. Negative Brudzinski's and Kernig's signs. Lungs: clear to auscultation bilaterally, non-labored CV: regular rhythm, S1, S2 normal, radial pulses palpable Extremities: normal range of motion with no cyanosis. PICC In the right upper extremity Skin: no skin lesions or lacerations Psych: affect-broad and normal mood. Neurological examination: Mental status: awake; alert to self but not place or time. He had word finding difficulty. He appears confused. He has psychomotor slowing. Cranial nerves: I: not tested II, III, IV, : normal confrontation B/L, Pupils midrange and reactive to light , normal consensual response; extraocular muscles are intact; no ptosis; no conjugate or asymmetrical nystagmus V 1/2/3: sensation is intact on forehead, cheeks, and jaw region VII: mild right facial droop. VIII: able to hear throughout the history process IX & X: symmetric palatal elevation XI: normal strength against resistance XII: tongue is symmetrical & midline with no atrophy or fasciculations Motor (R/L): moves all extremities to command. He has trouble keeping bilateral lower extremity or left upper extremity against gravity due to discomfort in the left shoulder. Reflexes : Trace throughout with flexor plantar response throughout Sensation is intact to light touch throughout. Coordination: normal finger but does not reach finger as he has trouble following commands. Gait & Station: n/a Assessment: Mr. Wai Concepcion is an 88-year-old man who is being treated with Cefepime for pseudomonas endocarditis, who presented with new onset confusion in the setting of hypotension and fever. 1. Acute encephalopathy most likely due to an infectious with superimposed toxic etiology - Sepsis alert was initiated. The source is unknown. Cefepime can also cause neurotoxic side effects (seizures and encephalopathy) but in the setting of fever and hypotension, an underlying infectious etiology will need to be first considered - Bacterial or viral meningitis is highly unlikely given the absence of headache and no signs of meningeal irritation on examination. 2. Possible word finding difficulty and confusion- recrudescence of previous neurological deficits (especially since his previous stroke was on the left hemisphere) could be seen in the setting of infection. He is not a candidate for IV tPA since he is on Eliquis. He would not be a good candidate for LVO evaluation since he is currently being treated for an infection and his NIHSS is not significantly elevated. Plus his last known well time is unclear and may have been sometime yesterday. Overall stroke is low on the differential since there are other etiology to his encephalopathy. Following the treatment for sepsis, if the patient continues to be confused or if he develops new neurological deficits/deteriorates clinically, then ordering an MRI brain without contrast to evaluate for septic emboli is recommended. He did not have any evidence of ICH on CT. He is at high risk for mycotic aneurysms in the setting of endocarditis which increases his risk for ICH, especially while on Eliquis. He needs close monitoring. 3. Sepsis- source is unknown. He does have a PICC which increases his risk for central line associated blood stream infections. He will need hospital admission. Defer further management to the primary team. Recommendations: - IV fluids and discuss antibiotic regiment with Dr. Valdez since he is already on Cefepime. - Order an EEG to evaluate for epileptiform abnormalities and exclude non- convulsive status epilepticus (Cefepime is a risk factor) - He may need a LP if an infectious source is not found. He would need to be off Eliquis for 48 hours before an LP can be done. - Hold off on any further intracranial imaging at this time. - Neuro checks every 4 hours - Supportive care Dr. Smith will be covering the neurology service starting at 1700. I will sign out the case tonight and he will continue to follow. Discussed the above recommendations with Dr. Mccallum Time spent: 50 critical care minutes obtaining history, examining the patient, reviewing the CT head imaging, and making decisions regarding tPA therapy. Caridad Fortune MD Date: 05/25/2018 Time: 0096
[2018-05-25 12:33] LABS: ABS Basophils 0 10^3/ul (0-0.2); ABS Eosinophils 0 10^3/ul (0-0.6); ABS Lymphocytes 1.1 10^3/ul (1.0-4.8); ABS Monocytes 0.8 10^3/ul (0-0.8); ABS Nucleated RBC 0.1 10^3/ul; Eosinophil % 0 %; Hematocrit 32 % (42-52); Hemoglobin 10.3 g/dl (14.0-18.0); Lymphocyte % 9.7 %; Mean Corpuscular HGB Conc 32 g/dl (31-36); Mean Corpuscular Hemoglobin 33 pg (27-31); Mean Corpuscular Volume 103 fL (80-94); Mean Platelet Volume 10.5 fL (7.4-10.4); Nucleated Red Blood Cells % 1.2; Platelet Count 142 10^3/ul (150-450); Red Blood Count 3.11 10^6/ul (4.00-5.40); Red Cell Distribution Width 18 % (10.5-15)
[2018-05-25 12:39] LABS: Immature Granulocytes 2 % (0-9); Lymphocytes % 6 %; Monocytes % 11 %; Neutrophil % 81 %
[2018-05-25 14:30] LABS: Urine Appearance Cloudy; Urine Bacteria Absent (Absent); Urine Bilirubin Negative (Negative); Urine Blood 2+ (Negative); Urine Color Amber; Urine Glucose Negative (Negative); Urine Ketones Negative (Negative); Urine Nitrite Negative (Negative); Urine Protein 1+(30 mg/dL) (Negative); Urine Red Blood Cell 2+(6-10/hpf) (Absent); Urine Specific Gravity 1.015 (1.010-1.030); Urine Urobilinogen Negative (Negative); Urine White Blood Cell 3+(>20/hpf) (Absent)
[2018-05-25] MEDS ORDERED: Acetaminophen TAB* 325 MG PO PRN (14:58)
[2018-05-25] MEDS ORDERED: Al Hydrox/Mg Hydrox/Simet LIQ* 30 ML UDC PO PRN (14:58)
[2018-05-25] MEDS ORDERED: NS 0.9% 1000 ML* 1,000 ML IV SCH (15:00)
[2018-05-25] MEDS ORDERED: Docusate CAP* 100 MG PO PRN (15:02)
[2018-05-25] MEDS ORDERED: Melatonin 3 MG TAB PO PRN (15:02)
[2018-05-25] MEDS ORDERED: Artificial Tears* 15 ML BTL BOTH EYES PRN (15:02)
[2018-05-25] MEDS ORDERED: Vancomycin(*) 750 MG in NS 0.9% 250 ML* 250 ML IVPB ONE (15:10)
--- NOTE | 2018-05-25 15:10 | ECHO ---
Patient: DEEPAK DOWNEY [facility] Rec#: [id number] : 1930 Date: 05/25/2018 Age: 88y Height: 162.56 cm / 64.0 in Weight: 58.06 kg / 128.0 lbs Sex: M BSA: 1.62 Room#: ED19 Admit Date#: 05/25/2018 Type: Inpatient Referring: Dede Millan Reading: Darrell Whaley MD [employer] Setter [employer] Repairer: Cecily Guidry [facility] Transthoracic Echocardiogram Indication: Syncope//fever BP: 86/42 HR: 88 Rhythm: NSR Findings History: Recent endocatditis with abx. 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 Technical Comments: The study quality is good. Completed at 1435. Left Ventricle: The left ventricular chamber size is normal. There is normal left ventricular systolic function. The estimated ejection fraction is 60-65%. Post surgical hypokinesis of the interventricular septum is observed consistent with coronary artery bypass. There is septal flattening of the interventricular septum consistent with right ventricular volume or pressure overload. Abnormal left ventricular diastolic function is observed. The left ventricular diastolic filling pattern is consistent with pseudonormalization. Left Atrium: The left atrium is mildly dilated. Right Ventricle: The right ventricular cavity size is normal. The right ventricular global systolic function is moderately reduced. The septum has abnormal paradoxical motion consistent with post-operative pressure. Right Atrium: The right atrial cavity size is normal. Aortic Valve: The aortic valve is trileaflet. The aortic valve leaflets are mildly thickened. There is mild thickening of the non coronary cusp. There is no evidence of aortic regurgitation. There is no evidence of aortic stenosis. Mitral Valve: There is mild to moderate mitral regurgitation. There is mild mitral stenosis. A bioprosthetic mitral valve is present. Tricuspid Valve: The tricuspid valve leaflets are normal. There is moderate tricuspid regurgitation. There is evidence of mild pulmonary hypertension. There is no tricuspid stenosis. Pulmonic Valve: The pulmonic valve appears normal. There is a trace pulmonic regurgitation. There is no pulmonic stenosis. Pericardium: The pericardium appears normal. Aorta: There is no dilatation of the ascending aorta. There is no dilatation of the aortic arch. There is no dilation of the aortic root. Pulmonary Artery: The main pulmonary artery appears normal. Venous: The inferior vena cava appears normal in size. There is a greater than 50% respiratory change in the inferior vena cava dimension. Conclusions The estimated ejection fraction is 60-65%. Post surgical hypokinesis of the interventricular septum is observed consistent with coronary artery bypass. There is septal flattening of the interventricular septum consistent with right ventricular volume or pressure overload. The left ventricular diastolic filling pattern is consistent with pseudonormalization. The left atrium is mildly dilated. The right ventricular global systolic function is moderately reduced. The aortic valve leaflets are mildly thickened. There is mild to moderate mitral regurgitation. There is mild mitral stenosis. A bioprosthetic mitral valve is present. There is moderate tricuspid regurgitation. There is evidence of mild pulmonary hypertension. No obvious vegetations. Similar to the [facility] report of 04/30/18 except that the small mobile echodense lesion on the mitral leaflets was not seen on this transthoracic study. Also , the LV function appears to have improved from 45-50% last time. Consider Transesophageal echocardiography for further evaluation if clinically appropriate. Measurements Name Value Normal Range RVIDd (AP) 2D 2.9 cm (0.9 - 2.6) RVDdMajor (2D) 3.4 cm (2.2 - 4.4) RAd ISD 4CH 4.2 cm (3.4 - 4.9) RA (A4C)W 2.9 cm (2.9 - 4.6) IVSd (2D) 0.9 cm (0.6 - 1) LVPWd (2D) 0.8 cm (0.6 - 1) LVIDd (2D) 3.9 cm (3.6 - 5.4) LVIDs (2D) 2 cm - Aortic Annulus 2.2 cm (1.4 - 2.6) Ao root diameter (2D) 2.8 cm (2.1 - 3.5) Ascending Ao 2.8 cm (2.1 - 3.4) Aortic arch 2.3 cm (1.8 - 3.4) Descending Ao 0.5 cm - LA dimension (AP) 2D 4 cm (2.3 - 3.8) LAd ISD 4CH 4.2 cm (2.9 - 5.3) LA ISD 4CH W 3.5 cm (2.5 - 4.5) Name Value Normal Range LA ESV SP 4CH (A/L) 40 ml - LA ESV SP 2CH (A/L) 44 ml - LA ESV BP (A/L) 42 ml - LA ESV BP (A/L) index 25.94 ml/m2 - LA ESV SP 4CH (MOD) 34 ml - LA ESV SP 2CH (MOD) 41 ml - Name Value Normal Range MV E-wave Vmax 1.8 m/sec - MV deceleration time 296 msec - MV A-wave Vmax 2.1 m/sec - MV E:A ratio 0.84 ratio - LV septal e' Vmax 0.05 m/sec - LV lateral e' Vmax 0.07 m/sec - LV E:e' septal ratio 36 ratio - LV E:e' lateral ratio 25.7 ratio - Name Value Normal Range AV Vmax 1.3 m/sec - AV VTI 22.4 cm - AV peak gradient 7.14 mmHg - AV mean gradient 3.7 mmHg - LVOT diameter 1.8 cm - LVOT Vmax 0.9 m/sec - LVOT VTI 15.8 cm - LVOT peak gradient 3.56 mmHg - LVOT mean gradient 1.59 mmHg - Name Value Normal Range MV Vmax 2.1 m/sec - MV VTI 59.4 cm - MV peak gradient 17.05 mmHg - MV mean gradient 7.8 mmHg - MV PHT 79 msec - MR Vmax 4.3 m/sec - MR VTI 110 cm - MVA (PHT) 2.8 cm2 - MVA (continuity VTI) 0.7 cm2 - Name Value Normal Range TR Vmax 3.5 m/sec - TR peak gradient 49 mmHg - RAP 3 mmHg - RVSP 52 mmHg - IVC diameter 1.9 cm - Name Value Normal Range PV Vmax 0.7 m/sec - PV peak gradient 1.93 mmHg -
[2018-05-25] MEDS ORDERED: Vancomycin(*) 1,000 MG - ED ONCE IVPB ONE ×2 (16:00)
[2018-05-25] MEDS ORDERED: Levofloxacin 750 MG IVPREMIX(* 750 MG/150 ML BAG IVPB SCH (16:00)
[2018-05-25] MEDS ORDERED: Vancomycin per Pharmacy* NOTE FOLLOW UP SCH (16:00)
[2018-05-25 16:18] LABS: Albumin 3.2 g/dL (3.2-5.2); Albumin/Globulin Ratio 1.3 (1-3); BUN/Creatinine Ratio 27.9 (8-20); Calcium 8.5 mg/dL (8.6-10.3); EGFR Non-African American 62.7 (>60); Globulin 2.5 g/dL (2-4); Potassium 4.3 mmol/L (3.5-5.0); Total Bilirubin 4.6 mg/dL (0.2-1.0); Total Protein 5.7 g/dL (6.4-8.9)
[2018-05-25] MEDS: Atorvastatin* 10 MG TAB PO SCH (19:38)
[2018-05-25] MEDS: Digoxin TAB* 0.125 MG PO SCH (19:38)
[2018-05-25] MEDS: Meropenem 1 GM PREMIX(*) 1 GM/50 ML BAG IV SCH (19:39)
[2018-05-25] MEDS: NS 0.9% 1000 ML* 1,000 ML IV SCH (19:39)
[2018-05-25] MEDS ORDERED: Apixaban* 2.5 MG TAB PO SCH (21:00)
--- NOTE | 2018-05-25 21:04 | HP ---
CC: [facility] * HISTORY AND PHYSICAL: DATE OF ADMISSION: 05/25/18 PROVIDER: Dede Millan NP PRIMARY CARE PROVIDER: [facility]. ATTENDING PHYSICIAN WHILE IN THE HOSPITAL: Dr. Jeremy Christie * (dictated by Dede Millan NP). CHIEF COMPLAINT: 1. Altered mental status. 2. Fever. HISTORY OF PRESENT ILLNESS: Mr. 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 He also was found to have a pancreatic mass. He has a chronic history of atrial fibrillation, on Eliquis; congestive heart failure with an EF of 40% to 45%, paroxysmal atrial fibrillation, diabetes, history of nephrolithiasis, coronary artery disease, hypothyroidism, BPH, and vitamin B12 deficiency. According to the emergency room report, Mr. Concepcion was sent from [facility] via ambulance as a code crespo with complaints of unresponsiveness and drooling, alyssa crsepo was called at 1055. On the patient's arrival, the patient immediately went to CT and was seen by Dr. Fortune. Per OLAMIDE Harper from [facility], the patient ate breakfast this morning at approximately 10 a.m. and he was found to be drooling and unresponsive. There was a concern for stroke in MCA with the patient's past medical history. no new weakness was noted. On arrival to the emergency room, the patient is responsive. He is alert and oriented x2. He denies any pain or nausea. He does have a history of dementia. The patient is currently on cefepime for pseudomonas endocarditis. He is also taking Eliquis for chronic atrial fibrillation. He has no other complaints. He denies any nausea, vomiting, or diarrhea. He does report right upper quadrant abdominal pain. He denies any chest pain or shortness of breath. He denies any cough, congestion, or hemoptysis. He denies any weakness on one side. He does appear lethargic and fatigued. He is oriented to person and place. Due to his fever of unknown origin and alerted mentation, we were asked to see and evaluate him for admission. PAST MEDICAL HISTORY: 1. Diabetes. 2. Atrial fibrillation, on anticoagulation. 3. 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 4. History of hydronephrosis and nephrolithiasis, status post ureteral stent. 5. Coronary artery disease. 6. Hypothyroidism. 7. BPH. 8. Pancreatic mass. 9. History of congestive heart failure with an EF of 40% to 45%. 10. History of vitamin B12 deficiency. CURRENT MEDICATIONS: 1. Cefepime 1 g IV q.12 hours. 2. Tylenol 650 mg p.o. q.6 hours as needed. 3. Metoprolol succinate 50 mg p.o. daily. 4. Eliquis 2.5 mg p.o. daily. 5. Lipitor 10 mg p.o. daily. 6. Digoxin 0.125 mg p.o. nightly. 7. Vitamin B12 500 mcg p.o. daily. 8. Ascorbic acid 500 mg p.o. daily. ALLERGIES: No known drug allergies. FAMILY HISTORY: Reviewed and noncontributory. SOCIAL HISTORY: The patient currently lives at [facility]. His son Renaldo Concepcion is his healthcare proxy. He has no history of smoking, alcohol, or illicit drug use. The patient's reported code status on his prior admission was DNR/DNI. This needs to be updated and confirmed. REVIEW OF SYSTEMS: Review of 14 systems was completed. All those mentioned in the HPI were pertinent and positive, all others were negative. PHYSICAL EXAMINATION GENERAL: At this time, Mr. Concepcion appears fatigued, in no acute distress, resting on the stretcher in the emergency room. VITAL SIGNS: Temperature T-max rectally was 102.7. Blood pressure currently is 91/47, heart rate 87, respirations 18, O2 saturation 93% on room air. HEENT: Head is atraumatic, normocephalic. Pupils are equal and reactive to light. Oral mucosa appears to be dry. NECK: Supple. C-spine without tenderness. No lymphadenopathy. LUNGS: Clear to auscultation bilaterally. No wheezes, rales, or rhonchi. HEART: S1, S2. Regular rate and rhythm. No rubs or gallops. ABDOMEN: Flat, nondistended, soft. He has significant tenderness on palpation to the right upper quadrant. Bowel sounds are active x4. EXTREMITIES: Pedal pulses are +1 bilaterally. No edema noted. NEUROLOGIC: He is alert and oriented x2. He does wake to verbal stimuli. He appears fatigued. He has no gross focal neuro deficits. DIAGNOSTIC STUDIES AND LABORATORY DATA: WBCs were 11.0, RBCs 3.11, hemoglobin 13.3, hematocrit was 32, platelet count was 142. INR was 1.14. Chemistry is sodium 134, potassium 4.3, chloride 104, carbon dioxide was 24, anion gap was 6 , BUN was 31, creatinine 1.00, glucose was 190, lactic acid 2.3, AST was 176, ALT was 121, alkaline phosphatase was 164, troponin was 0.03. Urine is currently pending. Flu A and B were negative. Chest x-ray in the emergency room. Radiologist impression: No evidence of active disease. CT of the brain. No acute intracranial pathology, diffuse involutional changes with chronic small vessel ischemic changes, no evidence of a remote infarct. Transthoracic echocardiogram; conclusion: Estimated ejection fraction is 60% to 65%, post surgical hypokinesis of the interventricular septum is observed consistent with coronary artery bypass. There is septal flattening in the interventricular septum consistent with right ventricular volume or pressure overload. The left ventricular diastolic filling pattern is consistent with pseudonormalization. The left atrium is mildly dilated. The left ventricular global systolic function is mildly reduced. The aortic valve leaflets are mildly thickened. There is [id number] mitral regurgitation, mild mitral stenosis. There is a bioprosthetic mitral valve present. There is moderate tricuspid regurg. There is evidence of mid pulmonary hypertension. No obvious vegetations. Similar to JUAN report on 04/30/18 except for the small mobile echodense lesion on the mitral leaflet is now not seen on this transthoracic study. Also the LV function appears to have improved form 40% to 50% last time. Consider transesophageal echocardiography for further evaluation if clinically appropriate. He currently has a gallbladder ultrasound that is currently pending. ASSESSMENT AND PLAN: Mr. Concepcion is an 88-year-old male with a past medical history significant for atrial fibrillation, pseudomonas endocarditis, benign prostatic hyperplasia, who presented to the emergency room with fever and altered mental status. He will be admitted inpatient in the ICU for close observation. 1. Sepsis. I suspect this could be related to acute cholecystis as the patient did have acute cholecystitis in the end of April that was without surgical intervention. The patient also does have recent endocarditis caused by pseudomonas bacteria so this could also be in the differential. He has currently been treated daily with cefepime, but presents today with fever of 102.7. This could also be drug reaction fever. We did get blood cultures off of his right upper arm PICC line as well as peripheral blood cultures that are currently pending. His urine culture is currently pending. I will get an ultrasound of the gallbladder that is also currently pending to rule out any abscess or acute pathology. At this time, the patient will finish with fluid bolusing for a total of 1740 cc as per 30 mL per kg for sepsis bolusing. I will continue IV fluids overnight. I will place him on meropenem and vancomycin. To cover possible failing pseudomonas endocarditis, we will switch to meropenem ; possible cholecystitis, we will cover with meropenem and vancomycin and narrow his antibiotics as able. We will continue to monitor the patient in the ICU on telemetry. We will repeat lactic acid. I suspect that his lactic acid is elevated due to sepsis related to possible cholecystis, but at this time it is unclear what his sepsis is currently related to. Within the differential is pseudomonas endocarditis, although his transthoracic echocardiogram today does not show any mobile lesion in the mitral valve this may need to be further evaluated with JUAN. He does have significant right upper quadrant tenderness and gallbladder ultrasound is currently pending. I did consult with Infectious Disease who recommended meropenum and vancomycin and will see the patient on monday. 2. Altered mental status. I suspect his altered mental status is related to his underlying infection and fever of 102.7. At the time of evaluation, the patient is alert and verbal. He is answering questions appropriately. He does appear fatigued. I will continue him on antibiotics as above. 3. Elevated liver functions. This could be related to his underlying gallbladder disease. We will continue to follow his cultures and repeat his liver functions tomorrow. 4. Chronic medical conditions, diabetes. We will place him on fingersticks a.c. and lispro sliding scale. 5. Gastroesophageal reflux disease. He will continue on omeprazole as previously prescribed. 6. Atrial fibrillation. I will continue him on anticoagulation. He will continue metoprolol and Eliquis. 7. Hypothyroid. We will continue his Synthroid as preciously prescribed. 8. FEN: He can have a clear liquid diet in the setting of significant right upper quadrant abdominal pain. 9. DVT prophylaxis: The patient is high risk. He will continue on his Eliquis. 10. Code status: The patient is a DNR/DNI. TIME SPENT: Time spent on this admission was approximately 60 minutes, greater than half of the time was spent with the patient discussing events leading up to this hospitalization, performing my physical exam, and implementing my plan of care. I have discussed with my attending Dr. Jeremy Christie, and he is in agreement with my plan. DEDE MILLAN NP Addendum : I spoke to Surgery and GI in consultation in regards tot he gall bladder ultrasound showing acute cholecystitis- surgery would like eliquis as patient will likely need drain placement. I spoke to cardiology as well for input on endocarditis and cardiac stability for surgery. [id number]/[facility] #: [id number] ROSELIA
[2018-05-25] MEDS: Gabapentin CAP(*) 100 MG PO SCH (22:26)
[2018-05-26] MEDS: Vancomycin(*) 750 MG in NS 0.9% 250 ML* 250 ML IVPB SCH ×2 (04:31→16:17)
[2018-05-26 05:53] LABS: Hematocrit 29 % (42-52); Hemoglobin 9.2 g/dl (14.0-18.0); Mean Corpuscular HGB Conc 32 g/dl (31-36); Mean Corpuscular Hemoglobin 33 pg (27-31); Mean Corpuscular Volume 104 fL (80-94); Mean Platelet Volume 10.3 fL (7.4-10.4); Platelet Count 122 10^3/ul (150-450); Red Blood Count 2.75 10^6/ul (4.00-5.40); Red Cell Distribution Width 19 % (10.5-15); White Blood Count 6.9 10^3/ul (3.5-10.8)
[2018-05-26] MEDS: Omeprazole CAP* 20 MG PO SCH (05:58)
[2018-05-26] MEDS: Levothyroxine TAB* 100 MCG TAB PO SCH (05:58)
[2018-05-26 05:59] LABS: INR 1.37 (0.77-1.02)
[2018-05-26] MEDS: Meropenem 1 GM PREMIX(*) 1 GM/50 ML BAG IV SCH ×2 (06:04→18:29)
[2018-05-26 06:10] LABS: Albumin 2.8 g/dL (3.2-5.2); Albumin/Globulin Ratio 1.2 (1-3); BUN/Creatinine Ratio 29.3 (8-20); Calcium 7.9 mg/dL (8.6-10.3); EGFR Non-African American 98.5 (>60); Globulin 2.3 g/dL (2-4); Potassium 3.8 mmol/L (3.5-5.0); Total Bilirubin 2.2 mg/dL (0.2-1.0); Total Protein 5.1 g/dL (6.4-8.9)
[2018-05-26 06:12] LABS: ABS Basophils 0.1 10^3/ul (0-0.2); ABS Eosinophils 0 10^3/ul (0-0.6); ABS Lymphocytes 1.4 10^3/ul (1.0-4.8); ABS Monocytes 0.4 10^3/ul (0-0.8); ABS Neutrophils 4.9 10^3/ul (1.5-7.7); ABS Nucleated RBC 0 10^3/ul; Eosinophil % 0.4 %; Nucleated Red Blood Cells % 0.6
--- NOTE | 2018-05-26 06:16 | CONS ---
CC: Darrell Whaley; Maylin Kinsey NP; Dr. Suhas Abdalla CARDIOLOGY CONSULTATION REPORT: DATE OF CONSULT: 05/25/18 REASON FOR EVALUATION: Mitral valve disease, AFib, coronary artery disease. HISTORY OF PRESENT ILLNESS: This is a very complex 88-year-old gentleman I know from previous outpatient evaluations. 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 He apparently has had problems with right upper quadrant discomfort and bacteremia. He was admitted on April 26 with altered mental status and had a transesophageal echocardiogram performed, which did not indicate any acute process. He was noted to have UTIs with a pseudomonas bacteremia given his bacteremia and endocarditis of mitral valve and urinary tract infection, he was started on cefepime as per ID for a total of 5 weeks. He continued to have right upper quadrant pain and had a HIDA scan that showed he did not fill in the gallbladder after 3 hours confirming cystic duct obstruction and acute cholecystitis. Because of those findings, he was seen by Surgery and it was thought that he should be managed medically. Given that he had a prolonged IV antibiotic course for endocarditis , it was recommended that he be managed medically; however, does not appear to be clear that his bacteremia is due to endocarditis based on the JUAN. He went from his usual residence at [place] and was transferred from the hospital to [facility] for continued antibiotic therapy. He was admitted today for acute altered mental status and hypotension and was found to be septic, suspected from his gallbladder. His gallbladder ultrasound from today revealed gallbladder wall thickening with pericholecystic fluid suggestive of acute cholecystitis, complex cystic lesion of pancreas, which had been previously identified and evaluated on May 08. At that time, he had multiloculated cystic lesion predominantly raising from the neck of the pancreas, which might be related to the main pancreatic duct, may represent intraductal papillary mucinous neoplasms. 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 Gallbladder demonstrates multiple gallstones. He also had an echocardiogram today, which revealed normal LV function, EF of 60% to 65% with surgical hypokinesis of interventricular septum consistent with cardiothoracic surgery bypass, septal flattening consistent with right ventricular volume or pressure overload, abnormal diastolic function. Aortic leaflets are mildly thickened especially the non-coronary cusp, no evidence of aortic regurgitation and no aortic stenosis, mild to moderate MR. Bioprosthetic valve was present. There is mild mitral stenosis, moderate TR, pulmonary hypertension, trace PI, no obvious vegetations. Similar to the JUAN report of April 30 except the small mobile echodense lesion in the mitral valve, this was not seen on this thoracic study. Also, the LV function appears to improve from 45% to 50% last time. Of note, the report from the JUAN of May 08 felt that the findings on the JUAN were unlikely related to acute pseudomonas endocarditis, more likely remote endocarditis or degenerative changes. The history was unable to be obtained from the patient who just admitted that he had some pain in his right upper quadrant, but denied fever, did not know how he got here. He denied any fevers , chills, sweats or orthopnea, chest pain. He thinks he gets around at [facility]. He had a catheterization performed in March 2016, and at that time, he had minimal irregularities of mild noncritical disease of the coronary system , 4+ MR, normal systolic function. PAST MEDICAL HISTORY: Includes mitral regurgitation, status post mitral valve repair; endocarditis in July 2017; CVA in July 2017; hypertension; hypothyroidism; paroxysmal atrial fibrillation. He had AFib perioperatively and was weaned off his amiodarone. Carotid disease, less than 50% lesions bilaterally in 2007, sciatic nerve injury in 2010, hemoptysis in 2013, extensive evaluation including bronchoscopy. It was felt he had cryptogenic organizing pneumonia, chronic fibrosis, treated with long- term antibiotics. Cough and hemoptysis resolved. Full thickness tears of the supraspinatus and infraspinatus muscles in September 2015. PAST SURGICAL HISTORY: Includes tonsillectomy at age 6, mitral valve replacement in April 2016 with a #25 Carrillo Magna Ease Bovine valve. Postop course complicated by AFib, discharged on amiodarone, but his amiodarone was tapered off due to his lung issues. He was anticoagulated. He had a CVA in September 2016 and again in December 2016. He had a TURP in 2016 complicated by bleeding and a laser procedure in April 2017. Of note, his JUAN in July 2017 revealed a mass on the aortic valve. He had a followup JUAN in August 2017, atherosclerotic plaque in the aorta and it was felt that the vegetation on the aortic valve was less pronounced. MEDICATIONS: Active medications include: 1. Eliquis 2.5 b.i.d. 2. Atorvastatin 10 mg. 3. Vitamin B12 500 mg daily. 4. Digoxin 0.125 mg q.p.m. 5. Iron 325 daily. 6. Colace 100 mg b.i.d. 7. Neurontin 100 mg b.i.d. 8. Synthroid 100 mcg daily. 9. Melatonin 3 mg at bedtime. 10. Metoprolol succinate 50 mg daily. 11. Omeprazole 20 mg daily. 12. Vancomycin. 13. Meropenem 1 g q.12. FAMILY HISTORY: Father of an [place] at 69. SOCIAL HISTORY: In the past, he had never used alcohol. He never smoked. I was unable to confirm that today. REVIEW OF SYSTEMS: Review of systems was not able to be obtained due to his denial of all significant symptoms. PHYSICAL EXAM: He is a well-developed, frail-appearing gentleman, in no apparent distress. Blood pressure 111/58, pulse is 76 and regular. Temperature was 102.7 earlier today at noon and was down to 101 at approximately 4, is now 98.6. JVD approximately 14 cm. Cardiac Exam: S1, S2 with a 1/6 systolic ejection murmur at the left sternal border. Chest was clear. No CVAT. Abdomen: Bowel sounds present. There was mild tenderness just to the right of the xiphoid and the right upper quadrant. Femoral pulses intact without bruits. Distal pulses intact, no edema. Motor strength 5/5 bilaterally. Deep tendon reflexes diminished in the lower extremities 1/4, 2/4 in the upper extremities. DIAGNOSTIC STUDIES/LAB DATA: Chest x-ray reports no evidence of acute disease. His electrocardiogram from May 09 revealed sinus rhythm with a right bundle - branch block and anterior T-wave changes, no ST elevation laterally, which was new compared to April 2015. His labs include white count of 11, hemoglobin of 10.3, platelet count of 142. Sodium 135, potassium 4.3, BUN of 31, creatinine of 1.11. His lactic acid was 2.3, approximately new and it was down to 1.5 at 4 o'clock. Transaminases are elevated, AST of 187, ALT of 141, alk phos of 160, total bilirubin of 4.6. The troponins are 0.03 earlier today and 0.02 at approximately 4 o'clock. IMPRESSION AND PLAN: My impression is that Mr. Concepcion appears to have recurrent sepsis, possibly due to cholecystitis. He has a history of endocarditis in the past. His JUAN from April did not suggest active endocarditis, although certainly it is not excluded based on imagina alone; however, it seems given his recurrent episodes of bacteremia associated with right upper quadrant pain and the findings related to his gallbladder and seems that the gallbladder may be the more likely source. Given his risk for recurrent sepsis and bacteremia, especially in the light of bioprosthetic valve, I would suggest proceeding with interventions to correct his cholecystitis as indicated. His LV function appears to be stable. He does have a history of chronic pulmonary issues and has some cor pulmonale, but otherwise seems to be an acceptable candidate for surgery. He will be even higher risk if he has recurrent cholecystitis and needs urgent surgery in the setting of sepsis and hypotension. The case was discussed with Dede Millan, and for the time being, I have recommended the followin. Would continue treatment with antibiotics as you are doing. 2. Would suggest surgical evaluation for possible cholecystectomy. 3. Would hold his Eliquis, pending the surgery is indicated, he would have to be held for at least 2 days. 4. Given his high risk for cardioembolic events, would consider bridging him perhaps with lovenox. 5. Would continue lipid lowering given his vascular disease. 6. Would continue his beta jeremy as you are doing as long his blood pressure will tolerate it. 7. Would check a dig level and consider reducing his dig given his age and the risk of digoxin. 8. Would consider obtaining ID consult if not already obtained to guide recommendations concerning continued treatment of his bacteremias. 9. His prognosis is guarded given his advanced age and comorbidities. [id number]/[facility] #: [id number] ROSELIA
[2018-05-26] MEDS: NS 0.9% 1000 ML* 1,000 ML IV SCH (09:00)
[2018-05-26] MEDS ORDERED: Metoprolol Succinate XL TAB* 50 MG PO SCH (09:00)
[2018-05-26] MEDS: Metoprolol Succinate XL TAB* 50 MG PO SCH (09:05)
[2018-05-26] MEDS: Ferrous Sulfate TAB* 325 MG PO SCH (09:05)
[2018-05-26] MEDS: Cyanocobalamin TAB* 500 MCG PO SCH (09:06)
[2018-05-26] MEDS: Gabapentin CAP(*) 100 MG PO SCH ×2 (09:06→20:55)
[2018-05-26] MEDS: Ascorbic Acid TAB* 500 MG PO SCH (09:06)
--- NOTE | 2018-05-26 13:52 | PN ---
Subjective Date of Service: 05/26/18 Interval History: HOSPITALIST PROGRESS NOTE Patient seen and examined at bedside. Care reviewed and d/w Te Grace RN. Mr Concepcion feels well. Doesn't remember why he's here or how he got here. Denies abdominal pain, N/V. I talked to admitting provider and she tells me he had significant RUQ tenderness on her PE yesterday. Family History: Unchanged from Admission Social History: Unchanged from Admission Past Medical History: Unchanged from Admission Objective Active Medications: Acetaminophen (Tylenol Tab*) 650 mg PO Q4H PRN PRN Reason: FEVER/PAIN Al Hydrox/Mg Hydrox/Simethicone (Maalox Plus*) 30 ml PO Q6H PRN PRN Reason: INDIGESTION Ascorbic Acid (Vitamin C Tab*) 500 mg PO DAILY [facility] Last Admin: 05/26/18 09:06 Dose: 500 mg Atorvastatin Calcium (Lipitor*) 10 mg PO 1700 [facility] Last Admin: 05/25/18 19:38 Dose: 10 mg Cyanocobalamin (Vitamin B12 Tab*) 500 mcg PO DAILY [facility] Last Admin: 05/26/18 09:06 Dose: 500 mcg Digoxin (Lanoxin Tab*) 0.125 mg PO 1700 [facility] Last Admin: 05/25/18 19:38 Dose: 0.125 mg Docusate Sodium (Colace Cap*) 100 mg PO BID PRN PRN Reason: CONSTIPATION Enoxaparin Sodium (Lovenox(*)) 55 mg SUBCUT Q12H [facility] Ferrous Sulfate (Ferrous Sulfate Tab*) 325 mg PO DAILY [facility] Last Admin: 05/26/18 09:05 Dose: 325 mg Gabapentin (Neurontin Cap(*)) 100 mg PO BID [facility] Last Admin: 05/26/18 09:06 Dose: 100 mg Heparin Sodium (Porcine) (Heparin Flush Picc/Ml/Cvc(*)) 1 - 3 ml FLUSH 0600, 1800 PRN; Protocol PRN Reason: PER PROTOCOL Meropenem (Merrem 1 Gm Premix(*)) 1 gm in 50 mls @ 100 mls/hr IV Q12H [facility] Last Admin: 05/26/18 06:04 Dose: 100 mls/hr Sodium Chloride (Ns 0.9% 1000 Ml*) 1,000 mls @ 100 mls/hr IV PER RATE [facility] Last Admin: 05/25/18 19:39 Dose: 100 mls/hr Vancomycin HCl 750 mg/ Sodium (Chloride) 250 mls @ 166.667 mls/hr IVPB Q12H [facility] Last Admin: 05/26/18 04:31 Dose: 166.667 mls/hr Levothyroxine Sodium (Synthroid Tab*) 100 mcg PO DAILY@0600 [facility] Last Admin: 05/26/18 05:58 Dose: 100 mcg Melatonin (Melatonin) 3 mg PO BEDTIME PRN; Protocol PRN Reason: SLEEP Metoprolol Succinate (Toprol Xl Tab*) 50 mg PO DAILY [facility] Last Admin: 05/26/18 09:05 Dose: Not Given Omeprazole (Prilosec Cap*) 20 mg PO DAILY@0600 [facility] Last Admin: 05/26/18 05:58 Dose: 20 mg Pharmacy Consult (Vancomycin Per Pharmacy*) 1 note FOLLOW UP .VANC PER PHARMACY [facility] Pharmacy Profile Note (Vancomycin Trough Check) 1 note FOLLOW UP ONCE ONE Stop: 05/27/18 15:31 Polyvinyl Alcohol (Polyvinyl Alcohol 1.4% Opth*) 1 drop BOTH EYES TID PRN PRN Reason: DRY EYE Vital Signs - 8 hr 05/26/18 05/26/18 05/26/18 06:00 06:01 06:15 Temperature Pulse Rate 79 89 64 Respiratory 27 24 16 Rate Blood Pressure 115/87 118/51 (mmHg) O2 Sat by Pulse 88 97 93 Oximetry 05/26/18 05/26/18 05/26/18 06:30 06:45 07:00 Temperature Pulse Rate 72 64 81 Respiratory 21 16 16 Rate Blood Pressure 98/58 120/47 (mmHg) O2 Sat by Pulse 92 94 98 Oximetry 05/26/18 05/26/18 05/26/18 07:53 08:00 08:01 Temperature 97.3 F Pulse Rate 66 60 58 Respiratory 13 17 14 Rate Blood Pressure 119/54 126/51 (mmHg) O2 Sat by Pulse 97 98 94 Oximetry 05/26/18 05/26/18 05/26/18 08:30 09:00 09:01 Temperature Pulse Rate 64 62 66 Respiratory 13 15 19 Rate Blood Pressure 115/55 106/52 (mmHg) O2 Sat by Pulse 98 92 87 Oximetry 05/26/18 05/26/18 05/26/18 09:30 10:00 10:01 Temperature Pulse Rate 61 88 84 Respiratory 20 20 26 Rate Blood Pressure 131/54 105/67 (mmHg) O2 Sat by Pulse 99 97 Oximetry 05/26/18 05/26/18 05/26/18 11:00 11:01 11:30 Temperature Pulse Rate 77 71 68 Respiratory 20 16 18 Rate Blood Pressure 97/48 100/45 (mmHg) O2 Sat by Pulse 97 98 98 Oximetry 05/26/18 05/26/18 05/26/18 12:00 12:01 12:30 Temperature Pulse Rate 74 73 64 Respiratory 18 19 19 Rate Blood Pressure 111/47 105/64 (mmHg) O2 Sat by Pulse 97 97 98 Oximetry 05/26/18 05/26/18 05/26/18 13:00 13:01 13:30 Temperature 98.7 F Pulse Rate 65 62 73 Respiratory 27 26 18 Rate Blood Pressure 106/51 117/65 (mmHg) O2 Sat by Pulse 97 98 100 Oximetry Oxygen Devices in Use Now: None Appearance: Pleasant elderly gentleman lying in bed in [facility]. Eyes: No Scleral Icterus Ears/Nose/Mouth/Throat: Mucous Membranes Moist Neck: Trachea Midline Respiratory: Symmetrical Chest Expansion and Respiratory Effort, Clear to Auscultation Cardiovascular: RRR - Normal S1 and S2 Abdominal: NL Sounds; No Tenderness; No Distention Neurological: Alert and Oriented x 3 - [facility] Result Diagrams: 05/26/18 05:46 05/26/18 05:46 Microbiology and Other Data: Microbiology 05/25/18 13:39 Urine Culture - Final Urine No Growth (<1,000 CFU/mL) 05/25/18 11:46 Blood Culture - Preliminary Blood Venous No Growth Day 1 05/25/18 11:50 Aerobic Blood Culture - Preliminary Blood Venous No Growth Day 1 Anaerobic Blood Culture - Preliminary No Growth Day 1 05/25/18 11:50 Influenza Types A,B Antigen - Final Nasal Specimen received for Influenza A/B Molecular testing Assess/Plan/Problems-Billing Assessment: Mr Concepcion is an 88yo M with PMH of type 2 DM, pAfib on AC, diastolic CHF with EF 60-65%, CAD, nephrolithiasis, hypothyroidism, BPH, vitamin B12 deficiency, pancreatic mass, aortic valve endocarditis in 07/30, admission to [facility] 04/29 for Pseudomonas endocarditis, cholecystitis, cholelithiasis, who presented to ED with altered MS and fever, found to have severe sepsis, likely secondary to cholangitis. - Patient Problems (1) Severe sepsis Comment: - Presentation compatible with severe sepsis on admission with fever, tachycardia, tachypnea, and toxic encephalopathy. - qSOFA was 3 on admission. - Source is probable cholangitis. (2) Cholangitis Comment: - Patient was admitted in 04/29 with cholecystitis. At that time his LFTs were minimally elevated, MRCP showed loculated cystic lesions in the pancreas, cholithiasis, but no choledocolithiasis. - This admission Tbili was 4.6 and is now trending down. Suspect he had obstruction, developed cholangitis/severe sepsis, and has now passed a stone. - GI consult requested to evaluate for ERCP/sphyncterotomy. - Blood cultures show no growth so far. - Continue Vanco/Meropenem for now, but if no growth by tomorrow, will d/c Vanco. (3) Toxic encephalopathy Comment: - Secondary to severe sepsis in the setting of cholangitis. - His mental status is much improved and probably close to his baseline. (4) Lactic acidosis Comment: - Secondary to sepsis - resolved. 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 - Case was d/w ID by admitting provider and recommendation was to discontinue Cefepime in case of failure and start Vanco/Meropenem. - Blood cultures show no growth so far. - Transthoracic echo shows improvement of EF (now 60-65%, from 40-45%) and mitral valve vegetation was not seen. (6) Atrial fibrillation Comment: - Paroxysmal. - He was in NSR earlier today. - Apixaban on hold for possible ERCP - will bridge with Lovenox. - Continue metoprolol and digoxin. (7) Diabetes mellitus type 2, controlled Comment: - Continue BG AC with Lispro SSI coverage with meals - A1c appropriate at 5.2 - Hold Metformin and resume at discharge (8) Thrombocytopenia Comment: - Likely consumptive in the setting of severe sepsis. (9) DVT prophylaxis Comment: - Lovenox bridging. (10) DNR (do not resuscitate) Status and Disposition: Inpatient for management of severe sepsis with risk of sudden decompensation. Continue to monitor in ICU.
[2018-05-26] MEDS ORDERED: Dextrose 50% Syringe 50 ML* 25 GM/50 ML SYRINGE IV PUSH PRN (14:15)
--- NOTE | 2018-05-26 14:23 | CONS ---
CC: Dr. Benavides; Dr. Whaley; Dr. Abdalla * CONSULTATION REPORT: DATE OF CONSULT: 05/26/18 HISTORY OF PRESENT ILLNESS: Mr. Carreno is an 88-year-old male who had a recent admission for cholecystitis and pericarditis and was receiving outpatient antibiotics for the pericarditis when he developed mental status changes and was brought back to the emergency room. I have been contacted by Dede Millan of the hospitalist service to provide surgical consultation. The patient was recently admitted to [facility] from 04/27/18 to and then was sent to [facility] on antibiotics for his pseudomonas pericarditis, which was thought to be due to a urinary source at the time of that admission. He was seen by Dr. Arnold of Surgery in consultation. At that admission, he had a nuclear biliary scan that showed nonvisualization of the gallbladder and evidence of acute cholecystitis. His ultrasound at that time showed some thickening of the gallbladder wall, some sludge in the gallbladder, and a complex cystic mass in the pancreas, which was also seen on CT scan. He had a cardiac evaluation, which showed a depressed ejection fraction of maybe 40 % and it was felt at that time that he would not tolerate surgery for his gallbladder. He responded well to antibiotics and his liver chemistries at that time returned to normal, where his bilirubin had been elevated as high as 1.8, it came back to 0.8 prior to discharge and his transaminases which were over 200, also came back to the normal range, so at that point he was discharged on antibiotics to treat the pericarditis. He presents back approximately 2 weeks later with signs of mental status changes and sepsis with a fever of 102 and he has been admitted to the intensive care unit. PHYSICAL EXAM: On examination today, he is a well-developed, well-nourished slender male, consistent with stated age. At the time of my exam, he does not appear acutely ill. He is alert and coherent and asks appropriate questions. Abdomen is soft, nondistended. There is mild right upper quadrant tenderness with maybe a trace of Thomas sign, not very impressive, certainly no peritonitis , guarding, or rebound tenderness. The remainder of the abdomen is benign. On exam, there are no palpable masses or hernias. DIAGNOSTIC STUDIES/LAB DATA: His laboratory studies on this admission show much more substantial elevation of his liver chemistries with bilirubin rising through the day from 3.2 in the morning to 4.6 in the afternoon, and transaminase which are in the high 100s. He presented with lactic acidosis which has resolved with hydration and antibiotics. His creatinine is 1.1 which is around his baseline but given his size, maybe some moderate renal insufficiency. He has had another gallbladder ultrasound which shows thickening of the gallbladder wall, sludge in the gallbladder, no dilated ducts , and again the complex cystic lesion in the pancreas. Repeat laboratory studies this morning are still pending. IMPRESSION: Mr. Concepcion is an 88-year-old male with multiple comorbidities and concurrent infections, who appears to have cholecystitis with an increasing elevation of his bilirubin and elevated transaminases. This is consistent with acute or subacute cholecystitis, although at this point with the rise in bilirubin, we have to be concerned about choledocholithiasis. His imaging on the previous visit with an MRCP did not show any filling defects in the common duct. PLAN/RECOMMENDATIONS: I think the current antibiotic regimen is appropriate for his cholecystitis. I think that in the face of his underlying pericarditis as well as multiple other medical comorbidities, one needs to make an assessment as to whether these medical comorbidities confer upon him an increased risk of surgical intervention. If his risk of surgical intervention is substantial, then nonoperative approaches to the gallbladder disease would be preferable. I think at this point he needs his common duct imaged and I believe that is probably best initiated with an MRCP and I understand that Dr. Benavides of Gastroenterology has been consulted as well. If the MRCP is concerning for common duct stones, then consideration might be given to ERCP for duct clearance. If the duct is cleared via ERCP, then the therapy for the cholecystitis would require continued antibiotics, and if the cardiac status is [id number] risk, then percutaneous drainage of the gallbladder would be the preferred option. If he is deemed a relatively low surgical risk, then cholecystectomy could be considered. I discussed these thoughts with Dede Millan of the hospitalist service and we will continue to follow him along with you. [id number]/[facility] #: [id number] ROSELIA
[2018-05-26] MEDS: Atorvastatin* 10 MG TAB PO SCH (17:26)
[2018-05-26] MEDS: Digoxin TAB* 0.125 MG PO SCH (17:26)
[2018-05-26] MEDS: Insulin LISPRO* 1 UNITS UNIT SUBCUT SCH ×2 (17:55→20:55)
--- NOTE | 2018-05-26 20:48 | CONS ---
GASTROENTEROLOGY CONSULT: DATE OF CONSULT : 05/26/18 CONSULTING PHYSICIAN: Ani Coreas REASON FOR CONSULT: Sepsis with elevated liver function tests in a man with recurring severe infections over the last 156 months including episodes of bacterial endocarditis in July and April of this year from Enterococcus faecalis and pseudomonas respectively. 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 He has been receiving intravenous cefepime to treat Pseudomonas bacteremia with associated echocardiogram abnormalities of his mitral valve bioprosthesis. He was doing fine and then yesterday became suddenly unresponsive and hypotensive. He was brought to the intensive care unit. His antibiotics were changed to vancomycin and meropenem. His liver function tests were abnormal with bili 4.6. RUQ US showed GB wall thickening and a CBD of 4mm. He was felt to be septic. He did not require pressors. During his April admission MRCP had showed no CBD stones but GB stones. Overnight, he has cleared clinically, now being back to his baseline mentally with normal vital signs, bili 2.2 and he is ready to go back to a regular floor. His complex course over the last ten months is well outlined in the notes, but actually he had an episode of streptococcal sepsis back about 15 months ago while in the [facility] system. 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 He then seemed to be better and stable or at least had no hospital contacts in the emergency room or admissions until 04/27/18 when he was admitted with abdominal pain. His blood cultures were positive for pseudomonas. His LFTs were off a little bit then with bilirubin 1.8, alkaline phosphatase 163, ALT 323. The LFTs rapidly normalized. Presumptive diagnosis of endocarditis was made. He was then much better until this admission. He was seen by Dr. Abdalla, Infectious Disease; Dr. Karina Arnold, Surgery; and his outpatient elementary educator is Dr Darrell Whaley. PAST MEDICAL HISTORY: 1. History of mitral valve abnormality - bioprosthetic valve. 2. History of arrhythmias - on Eliquis as an outpatient. 3. Recurring strokes - he says his first stroke was about a year ago affecting his speech. He says he has had 4 total. The exact pathophysiology of all is not known to me from today's review of the records, but he is felt to warrant bridging for any interventions. 4. AODM. 5. BPH - instrumented, fall 2016 and June 2017. 6. Pancreatic mass seen in the neck of the pancreas, about 4 cm complex. 7. Hypothyroidism. 8. Coronary artery disease - details not known. 9. Gallstones - seen on 04/26/18 MRCP only - other US studies x 3 showed sludge or no stones MEDICATIONS: As an outpatient: Digoxin 0.125. Lipitor 10. Metoprolol 50. Eliquis 2.5 Cefepime 1 g q.12 via PICC line. ALLERGIES: None to drugs. FAMILY HISTORY: No history of gastrointestinal tumors. 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 He had lived in [facility]. He has a son in [place] an bobbin dumper with 3 children. He has a son in [place] and a daughter in [place]. REVIEW OF SYSTEMS: No history of RI, peripheral embolic disease, peripheral vascular disease, hepatitis, prior overt jaundice, abdominal surgery, TB, hemoptysis, chronic lung disease, psoriasis, neurologic disease other than the CVAs. PHYSICAL EXAM: Examined in the ICU first sitting while eating his clear liquids and then later lying down. He is slightly pale, but in no overt distress. HEENT exam is unremarkable. He has no bruits. Breath sounds are clear and intact and symmetric. Heart sounds are regular without a murmur. The abdomen is mildly rounded, symmetric with normal bowel sounds, soft and he has no particular tenderness. He does state that he has been having some right mid to lower abdominal tenderness from time to time, but it just does not happen to be there today. He is aware something it may be his gallbladder. DIAGNOSTIC STUDIES/LAB DATA: Improved today with bilirubin 2.2, alkaline phosphatase 152, and ALT 112. Radiology review - MRCP, 05/08/18, showed no common duct filling defects but gallstones. Most recent ultrasound, 05/25/18, showed a 4-mm common duct and no gallstones. IMPRESSION: This 88-year-old man who is remarkably alert and attentive despite stating he has had 4 neurologic events is now recovering from another episode of sepsis. Cultures are awaited, but he is clearly much better. With the liver function tests going off, the most likely cause is a small pebble in the common duct, which may very well have transitted the papilla. Clinically that seems the most likely explanation for what happened in April when he also was acting septic and had a bump in LFTs that resolved. At the moment, it seems likely that he would benefit from having his gallbladder removed when he is ready. The question is determining the optimal timing in regard to his cardiac function, the possible presence of endocarditis that is partially treated, and whether or not there is a suspicion of common duct pathology enough to warrant an ERCP and whether or not the results of a second MRCP would affect that judgment. His course will be followed and the opinion and planning priorities of the surgeons and ID are awaited. [id number]/[facility] #: [id number] ROSELIA
[2018-05-26] MEDS: Enoxaparin(*) 60 MG/0.6 ML SYR SUBCUT SCH (20:55)
[2018-05-27] MEDS: Vancomycin(*) 750 MG in NS 0.9% 250 ML* 250 ML IVPB SCH ×2 (04:27→16:42)
[2018-05-27] MEDS: Omeprazole CAP* 20 MG PO SCH (06:02)
[2018-05-27] MEDS: Levothyroxine TAB* 100 MCG TAB PO SCH (06:02)
[2018-05-27 06:47] LABS: Hematocrit 28 % (42-52); Hemoglobin 8.8 g/dl (14.0-18.0); Mean Corpuscular HGB Conc 32 g/dl (31-36); Mean Corpuscular Hemoglobin 33 pg (27-31); Mean Corpuscular Volume 103 fL (80-94); Mean Platelet Volume 10.9 fL (7.4-10.4); Platelet Count 113 10^3/ul (150-450); Red Blood Count 2.67 10^6/ul (4.00-5.40); Red Cell Distribution Width 19 % (10.5-15); White Blood Count 5.2 10^3/ul (3.5-10.8)
[2018-05-27 07:06] LABS: Albumin 2.7 g/dL (3.2-5.2); Albumin/Globulin Ratio 1.1 (1-3); BUN/Creatinine Ratio 20.8 (8-20); C Reactive Protein 71.25 mg/L (<8.01); Calcium 7.5 mg/dL (8.6-10.3); EGFR Non-African American 103.3 (>60); Globulin 2.4 g/dL (2-4); Magnesium 1.5 mg/dL (1.9-2.7); Potassium 3.4 mmol/L (3.5-5.0); Total Bilirubin 1.1 mg/dL (0.2-1.0); Total Protein 5.1 g/dL (6.4-8.9)
[2018-05-27] MEDS: Meropenem 1 GM PREMIX(*) 1 GM/50 ML BAG IV SCH ×2 (07:09→19:01)
[2018-05-27 07:12] LABS: ABS Basophils 0.1 10^3/ul (0-0.2); ABS Eosinophils 0 10^3/ul (0-0.6); ABS Lymphocytes 1.3 10^3/ul (1.0-4.8); ABS Monocytes 0.3 10^3/ul (0-0.8); ABS Neutrophils 3.5 10^3/ul (1.5-7.7); ABS Nucleated RBC 0.1 10^3/ul; Eosinophil % 0.3 %; Lymphocyte % 25.1 %; Nucleated Red Blood Cells % 1.3
[2018-05-27] MEDS ORDERED: Magnesium Sulfate IV* 3 GM in NS 0.9% 100 ML* 100 ML IVPB ONE (08:00)
[2018-05-27] MEDS: Ferrous Sulfate TAB* 325 MG PO SCH (08:36)
[2018-05-27] MEDS: Potassium Chlor TAB* 20 MEQ TAB.ER PO SCH ×2 (08:36→12:17)
[2018-05-27] MEDS: Metoprolol Succinate XL TAB* 50 MG PO SCH (08:36)
[2018-05-27] MEDS: Gabapentin CAP(*) 100 MG PO SCH ×2 (08:37→21:10)
[2018-05-27] MEDS: Lactobacillus Acidophilus* 1 TAB PO SCH ×2 (08:37→21:10)
[2018-05-27] MEDS: Enoxaparin(*) 60 MG/0.6 ML SYR SUBCUT SCH ×2 (08:37→21:09)
[2018-05-27] MEDS: Ascorbic Acid TAB* 500 MG PO SCH (08:37)
[2018-05-27] MEDS: Cyanocobalamin TAB* 500 MCG PO SCH (08:37)
[2018-05-27] MEDS: Insulin LISPRO* 1 UNITS UNIT SUBCUT SCH ×4 (09:53→21:10)
--- NOTE | 2018-05-27 11:26 | PN ---
Subjective Date of Service: 05/27/18 Interval History: HOSPITALIST PROGRESS NOTE Patient seen and examined at bedside. Care reviewed and d/w Te Grace RN. He is in good spirits today. Abdominal pain is resolved, feels hungry, wants more food. Denies N/V, afraid he'll be incontinent of stool. Family History: Unchanged from Admission Social History: Unchanged from Admission Past Medical History: Unchanged from Admission Objective Active Medications: Acetaminophen (Tylenol Tab*) 650 mg PO Q4H PRN PRN Reason: FEVER/PAIN Al Hydrox/Mg Hydrox/Simethicone (Maalox Plus*) 30 ml PO Q6H PRN PRN Reason: INDIGESTION Ascorbic Acid (Vitamin C Tab*) 500 mg PO DAILY [facility] Last Admin: 05/27/18 08:37 Dose: 500 mg Atorvastatin Calcium (Lipitor*) 10 mg PO 1700 [facility] Last Admin: 05/26/18 17:26 Dose: 10 mg Cyanocobalamin (Vitamin B12 Tab*) 500 mcg PO DAILY [facility] Last Admin: 05/27/18 08:37 Dose: 500 mcg Dextrose (D50w Syringe 50 Ml*) 12.5 gm IV PUSH .FOR FS < 60 - SS PRN PRN Reason: FS < 60 Digoxin (Lanoxin Tab*) 0.125 mg PO 1700 [facility] Last Admin: 05/26/18 17:26 Dose: 0.125 mg Docusate Sodium (Colace Cap*) 100 mg PO BID PRN PRN Reason: CONSTIPATION Enoxaparin Sodium (Lovenox(*)) 55 mg SUBCUT Q12H [facility] Last Admin: 05/27/18 08:37 Dose: 55 mg Ferrous Sulfate (Ferrous Sulfate Tab*) 325 mg PO DAILY [facility] Last Admin: 05/27/18 08:36 Dose: 325 mg Gabapentin (Neurontin Cap(*)) 100 mg PO BID [facility] Last Admin: 05/27/18 08:37 Dose: 100 mg Heparin Sodium (Porcine) (Heparin Flush Picc/Ml/Cvc(*)) 1 - 3 ml FLUSH 0600, 1800 PRN; Protocol PRN Reason: PER PROTOCOL Meropenem (Merrem 1 Gm Premix(*)) 1 gm in 50 mls @ 100 mls/hr IV Q12H [facility] Last Admin: 05/27/18 07:09 Dose: 100 mls/hr Sodium Chloride (Ns 0.9% 1000 Ml*) 1,000 mls @ 100 mls/hr IV PER RATE [facility] Last Admin: 05/26/18 09:00 Dose: 100 mls/hr Vancomycin HCl 750 mg/ Sodium (Chloride) 250 mls @ 166.667 mls/hr IVPB Q12H [facility] Last Admin: 05/27/18 04:27 Dose: 166.667 mls/hr Insulin Human Lispro (Humalog*) 0 units SUBCUT ACHS [facility]; Protocol Last Admin: 05/27/18 09:53 Dose: Not Given Lactobacillus Rhamnosus (Lactobacillus Acidophilus*) 1 tab PO BID [facility] Last Admin: 05/27/18 08:37 Dose: 1 tab Levothyroxine Sodium (Synthroid Tab*) 100 mcg PO DAILY@0600 [facility] Last Admin: 05/27/18 06:02 Dose: 100 mcg Melatonin (Melatonin) 3 mg PO BEDTIME PRN; Protocol PRN Reason: SLEEP Metoprolol Succinate (Toprol Xl Tab*) 50 mg PO DAILY [facility] Last Admin: 05/27/18 08:36 Dose: 50 mg Omeprazole (Prilosec Cap*) 20 mg PO DAILY@0600 [facility] Last Admin: 05/27/18 06:02 Dose: 20 mg Pharmacy Consult (Vancomycin Per Pharmacy*) 1 note FOLLOW UP .VANC PER PHARMACY [facility] Pharmacy Profile Note (Vancomycin Trough Check) 1 note FOLLOW UP ONCE ONE Stop: 05/27/18 15:31 Polyvinyl Alcohol (Polyvinyl Alcohol 1.4% Opth*) 1 drop BOTH EYES TID PRN PRN Reason: DRY EYE Potassium Chloride (Klor Con Er Tab*) 40 meq PO Q4H [facility] Stop: 05/27/18 12:01 Last Admin: 05/27/18 08:36 Dose: 40 meq Vital Signs - 8 hr 05/27/18 05/27/18 05/27/18 03:30 03:47 04:00 Temperature 99.2 F Pulse Rate 55 72 Respiratory 10 16 18 Rate Blood Pressure 106/43 (mmHg) O2 Sat by Pulse 100 83 Oximetry 05/27/18 05/27/18 05/27/18 04:01 04:30 05:00 Temperature Pulse Rate 60 72 Respiratory 14 12 16 Rate Blood Pressure 130/63 117/64 (mmHg) O2 Sat by Pulse 100 100 Oximetry 1205/27/18 05/27/18 05:01 05:09 06:00 Temperature Pulse Rate 82 59 66 Respiratory 31 20 20 Rate Blood Pressure 127/57 137/73 (mmHg) O2 Sat by Pulse 95 96 95 Oximetry 05/27/18 05/27/18 05/27/18 06:01 07:00 07:01 Temperature Pulse Rate 61 62 58 Respiratory 22 21 22 Rate Blood Pressure 122/69 (mmHg) O2 Sat by Pulse 96 94 93 Oximetry 05/27/18 05/27/18 05/27/18 08:00 08:01 08:41 Temperature 98.6 F Pulse Rate 71 58 Respiratory 22 17 Rate Blood Pressure 123/59 (mmHg) O2 Sat by Pulse 97 97 Oximetry 05/27/18 05/27/18 05/27/18 09:00 09:04 10:00 Temperature Pulse Rate 71 Respiratory 13 16 23 Rate Blood Pressure 138/60 (mmHg) O2 Sat by Pulse 97 Oximetry 05/27/18 10:01 Temperature Pulse Rate 68 Respiratory 18 Rate Blood Pressure (mmHg) O2 Sat by Pulse 98 Oximetry Oxygen Devices in Use Now: None Appearance: Elderly gentleman lying in bed in NAD. Eyes: No Scleral Icterus Ears/Nose/Mouth/Throat: Mucous Membranes Moist Neck: Trachea Midline Respiratory: Symmetrical Chest Expansion and Respiratory Effort, Clear to Auscultation Cardiovascular: RRR - Normal S1 and S2 Abdominal: NL Sounds; No Tenderness; No Distention Extremities: No Edema Neurological: Alert and Oriented x 3, NL Muscle Strength and Tone Result Diagrams: 05/27/18 06:33 05/27/18 06:05 Microbiology and Other Data: Microbiology 05/25/18 13:39 Urine Culture - Final Urine No Growth (<1,000 CFU/mL) 05/25/18 11:46 Blood Culture - Preliminary Blood Venous No Growth Day 1 05/25/18 11:50 Aerobic Blood Culture - Preliminary Blood Venous No Growth Day 1 Anaerobic Blood Culture - Preliminary No Growth Day 1 05/25/18 11:50 Influenza Types A,B Antigen - Final Nasal Specimen received for Influenza A/B Molecular testing Assess/Plan/Problems-Billing Assessment: Mr Concepcion is an 88yo M with PMH of type 2 DM, pAfib on AC, diastolic CHF with EF 60-65%, CAD, nephrolithiasis, hypothyroidism, BPH, vitamin B12 deficiency, pancreatic mass, aortic valve endocarditis in 07/30, admission to [facility] [place] 04/29 for Pseudomonas endocarditis, cholecystitis, cholelithiasis, who presented to ED with altered MS and fever, found to have severe sepsis, likely secondary to cholangitis. - Patient Problems (1) Severe sepsis Comment: - Presentation compatible with severe sepsis on admission with fever, tachycardia, tachypnea, and toxic encephalopathy. - qSOFA was 3 on admission. - Source is probable cholangitis. (2) Cholangitis Comment: - Patient was admitted in 04/29 with cholecystitis. At that time his LFTs were minimally elevated, MRCP showed loculated cystic lesions in the pancreas, cholithiasis, but no choledocolithiasis. - This admission Tbili was 4.6 and is now trending down. Suspect he had obstruction, developed cholangitis/severe sepsis, and has now passed a stone. - GI consult appreciated - plan for MRCP and surgery consult. - Blood cultures show no growth so far - d/c Vanco. - Continue Meropenem. - Advance diet as tolerated. (3) Toxic encephalopathy Comment: - Secondary to severe sepsis in the setting of cholangitis. - His mental status is much improved. (4) Lactic acidosis Comment: - Secondary to sepsis - resolved. 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 - Case was d/w ID by admitting provider and recommendation was to discontinue Cefepime in case of failure and start Vanco/Meropenem. - Blood cultures show no growth so far. - Transthoracic echo shows improvement of EF (now 60-65%, from 40-45%) and mitral valve vegetation was not seen. (6) Atrial fibrillation Comment: - Continue metoprolol and digoxin. - Continue Lovenox. (7) Diabetes mellitus type 2, controlled Comment: - Continue FS with Lispro SS. (8) Thrombocytopenia Comment: - Likely consumptive in the setting of severe sepsis. (9) DVT prophylaxis Comment: - Lovenox bridging. (10) DNR (do not resuscitate) Status and Disposition: Inpatient for management of severe sepsis with risk of sudden decompensation. Transfer to Telemetry floor.
[2018-05-27] MEDS ORDERED: Vancomycin Trough Check NOTE FOLLOW UP ONE (15:30)
[2018-05-27] MEDS: NS 0.9% 1000 ML* 1,000 ML IV SCH (16:41)
[2018-05-27] MEDS: Atorvastatin* 10 MG TAB PO SCH (16:42)
[2018-05-27] MEDS: Digoxin TAB* 0.125 MG PO SCH (16:42)
--- NOTE | 2018-05-28 00:37 | PN ---
Progress Note - Progress Note Date of Service: 05/27/18 SOAP: Subjective: LATE ENTRY He was seen in ICU earlier. At that time no pain and sitting up in chair tolerating po. No N/V. Objective: Afeb VSS; voiding abd: soft and NT. Laboratory Results - last 24 hr 05/26/18 05/27/18 05/27/18 20:36 06:05 06:33 WBC 5.2 RBC 2.67 L Hgb 8.8 L Hct 28 L MCV 103 H MCH 33 H MCHC 32 RDW 19 H Plt Count 113 L MPV 10.9 H Neut % (Auto) 66.5 Lymph % (Auto) 25.1 [place] % (Auto) 6.7 Eos % (Auto) 0.3 Baso % (Auto) 1.4 Absolute Neuts (auto) 3.5 Absolute Lymphs (auto) 1.3 Absolute Monos (auto) 0.3 Absolute Eos (auto) 0 Absolute Basos (auto) 0.1 Absolute Nucleated RBC 0.1 Nucleated RBC % 1.3 Sodium 139 Potassium 3.4 L Chloride 112 H Carbon Dioxide 23 Anion Gap 4 BUN 15 Creatinine 0.72 Est GFR ( Amer) 124.9 Est GFR (Non-Af Amer) 103.3 BUN/Creatinine Ratio 20.8 H Glucose 103 H POC Glucose (mg/dL) 168 H Calcium 7.5 L Magnesium 1.5 L Total Bilirubin 1.10 H AST 60 H ALT 83 H Alkaline Phosphatase 136 H C-Reactive Protein 71.25 H Total Protein 5.1 L Albumin 2.7 L Globulin 2.4 Albumin/Globulin Ratio 1.1 Vancomycin Trough 05/27/18 05/27/18 05/27/18 08:57 11:23 15:49 WBC RBC Hgb Hct MCV MCH MCHC RDW Plt Count MPV Neut % (Auto) Lymph % (Auto) [place] % (Auto) Eos % (Auto) Baso % (Auto) Absolute Neuts (auto) Absolute Lymphs (auto) Absolute Monos (auto) Absolute Eos (auto) Absolute Basos (auto) Absolute Nucleated RBC Nucleated RBC % Sodium Potassium Chloride Carbon Dioxide Anion Gap BUN Creatinine Est GFR ( Amer) Est GFR (Non-Af Amer) BUN/Creatinine Ratio Glucose POC Glucose (mg/dL) 118 H 167 H Calcium Magnesium Total Bilirubin AST ALT Alkaline Phosphatase C-Reactive Protein Total Protein Albumin Globulin Albumin/Globulin Ratio Vancomycin Trough 14.2 05/27/18 05/27/18 16:50 20:58 WBC RBC Hgb Hct MCV MCH MCHC RDW Plt Count MPV Neut % (Auto) Lymph % (Auto) [place] % (Auto) Eos % (Auto) Baso % (Auto) Absolute Neuts (auto) Absolute Lymphs (auto) Absolute Monos (auto) Absolute Eos (auto) Absolute Basos (auto) Absolute Nucleated RBC Nucleated RBC % Sodium Potassium Chloride Carbon Dioxide Anion Gap BUN Creatinine Est GFR ( Amer) Est GFR (Non-Af Amer) BUN/Creatinine Ratio Glucose POC Glucose (mg/dL) 140 H 157 H Calcium Magnesium Total Bilirubin AST ALT Alkaline Phosphatase C-Reactive Protein Total Protein Albumin Globulin Albumin/Globulin Ratio Vancomycin Trough Assessment: Cholelithiasis, cholangitis(? passed CBD stone) in pt with complex medical history. Plan: Agree with MRCP. Cont abx. Will f/u.
[2018-05-28] MEDS: Piperacillin/Tazobac ADVAN(*) 3.375 GM in NS 0.9% 100 ML* 100 ML IVPB SCH ×2 (00:45→15:36)
[2018-05-28] MEDS: Vancomycin(*) 750 MG in NS 0.9% 250 ML* 250 ML IVPB SCH (03:31)
[2018-05-28] MEDS: Omeprazole CAP* 20 MG PO SCH ×2 (06:06→13:27)
[2018-05-28] MEDS: Levothyroxine TAB* 100 MCG TAB PO SCH ×2 (06:06→11:46)
[2018-05-28] MEDS: Meropenem 1 GM PREMIX(*) 1 GM/50 ML BAG IV SCH (06:07)
[2018-05-28 06:35] LABS: Hematocrit 30 % (42-52); Hemoglobin 9.4 g/dl (14.0-18.0); Mean Corpuscular HGB Conc 32 g/dl (31-36); Mean Corpuscular Hemoglobin 33 pg (27-31); Mean Corpuscular Volume 103 fL (80-94); Platelet Count 138 10^3/ul (150-450); Red Blood Count 2.88 10^6/ul (4.00-5.40); Red Cell Distribution Width 19 % (10.5-15)
[2018-05-28 06:53] LABS: Albumin 2.9 g/dL (3.2-5.2); Albumin/Globulin Ratio 1.2 (1-3); BUN/Creatinine Ratio 14.5 (8-20); C Reactive Protein 40.85 mg/L (<8.01); Calcium 7.7 mg/dL (8.6-10.3); Globulin 2.5 g/dL (2-4); Magnesium 1.8 mg/dL (1.9-2.7); Potassium 4.2 mmol/L (3.5-5.0); Total Protein 5.4 g/dL (6.4-8.9)
[2018-05-28 07:35] LABS: ABS Basophils 0.1 10^3/ul (0-0.2); ABS Eosinophils 0 10^3/ul (0-0.6); ABS Lymphocytes 1.7 10^3/ul (1.0-4.8); ABS Monocytes 0.4 10^3/ul (0-0.8); ABS Neutrophils 2.8 10^3/ul (1.5-7.7); ABS Nucleated RBC 0.1 10^3/ul; Eosinophil % 0.7 %; Lymphocyte % 34.2 %
[2018-05-28] MEDS: Insulin LISPRO* 1 UNITS UNIT SUBCUT SCH ×4 (08:40→21:30)
--- NOTE | 2018-05-28 08:40 | PN ---
Progress Note - Progress Note Date of Service: 05/28/18 Note: Cholecystitis Afeb, VS noted Voiding, nikos po's Min pain Feels generally well Alert and coherent, good spirits Color good Abd soft, mild RUQ tenderness, no peritonitis WBC normal LFT's almost aback to normal Impr: Cholecystitis, prob passed CBD stone MRCP pending If CBD clear, he should have lap olesya, poss fenestrating Risk is moderate, but his likelihood of repeat biliary sepsis is high Cardiac status (EF) improved from prior admission, not likely to improve further Pancreatic cyst should be left alone during surgery. (High risk of pancreatic leak with biopsy.)
[2018-05-28] MEDS: Enoxaparin(*) 60 MG/0.6 ML SYR SUBCUT SCH (08:53)
--- NOTE | 2018-05-28 09:36 | CONS ---
CONSULTATION REPORT: DATE OF CONSULT: 05/28/18 REQUESTING PROVIDER: Dede Millan NP CONSULTING SERVICE: Infectious Disease. REASON FOR CONSULT: Sepsis. IMPRESSION: 1. Sepsis with right upper quadrant pain, transaminitis, hyperbilirubinemia, all resolving. Suspicion for ascending cholangitis and passed stone. He is being followed by Surgery for consideration of cholecystectomy. His blood cultures here, urine cultures and influenza PCR are all negative. 2. Recent pseudomonas bacteremia which I suspect was from the gallbladder initially and a concern for seating of mitral valve. RECOMMENDATIONS: We will stop his vancomycin and meropenem. Start Zosyn. He is going to have an MRCP to check for common duct stone, if not Dr. Lao plans on a cholecystectomy. He will continue IV antibiotics, he is about 4-1/2 weeks into the course for prosthetic valve endocarditis. HISTORY OF PRESENT ILLNESS: This is an 88-year-old man currently being treated with cefepime for a mitral valve pseudomonas endocarditis who had change in mental status, fever, hypotension, and was sent from [facility] Emergency Room , found to have a bilirubin of 4.5, transaminitis, sepsis. He is in the ICU, started on vancomycin, meropenem, fluid resuscitation. His cultures have all come back negative as did the urine. His white count is down from 11 to 5. His fevers are resolved. He is feeling better. He has only right upper quadrant pain. Gallbladder ultrasound showed some pericholecystic fluid and gallbladder sludge. His transthoracic echocardiogram showed ejection fraction of 60% to 65%, mild to moderate mitral regurgitation, mild mitral stenosis. On his JUAN, there was mild to moderate mitral regurgitation without stenosis. Today, he complains only of right-sided abdominal pain which is improving. He has no fevers or chills. He had a loose stool today. He is feeling a little more energetic. No headache, no cough, or trouble breathing. PAST MEDICAL HISTORY: 1. Status post mitral valve replacement, currently being treated for bioprosthetic mitral valve endocarditis. 2. Type 2 diabetes. 3. Atrial fibrillation. 4. 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 5. History of hydronephrosis and nephrolithiasis status post ureteral stent. 6. Coronary artery disease. 7. Hypothyroidism. 8. Benign prostatic hypertrophy. 9. Vitamin B12 deficiency. MEDICATIONS: 1. Tylenol. 2. Lipitor. 3. Vitamin B12. 4. Digoxin. 5. Docusate. 6. Enoxaparin. 7. Ferrous sulfate. 8. Gabapentin. 9. Lactobacillus. 10. Levothyroxine. 11. Melatonin. 12. Omeprazole. 13. Meropenem 1 g every 12 hours. ALLERGIES: No known drug allergies. FAMILY HISTORY: No recurrent infections. SOCIAL HISTORY: He is admitted at [facility]. No travel. REVIEW OF SYSTEMS: All negative except as noted above to 14-point review. PHYSICAL EXAM: Vital Signs: Temperature 37, heart rate 75, respiratory rate 20 , blood pressure 143/56, oxygen saturation 96% on room air. In general, he is awake and not in distress. Neurologic: He is oriented x3. Follows all commands. Answers all questions. Moves all extremities. HEENT: There is no conjunctival hemorrhage. Oropharynx without lesions. Neck is supple without mass. Heart is regular rate and rhythm without murmurs, rubs, or gallops. Lungs are clear to auscultation bilaterally. Abdomen: Soft. Mild right upper quadrant tenderness to palpation. There are bowel sounds present. There is no rebound. Skin: There is no rash or splinter hemorrhage. Musculoskeletal: There is no spine tenderness to palpation or joint synovitis. DIAGNOSTIC STUDIES/LAB DATA: White blood cell count 5, hemoglobin 9.4, MCV 103 , platelets 138,000. Creatinine 0.7. CRP 41, down from 71. ALT 57, down from 141. Bilirubin 4.2, down from 1. Please see impressions and recommendations outlined above, which I have discussed with Dr. Lao. Thank you for asking me to see Mr. Johnston in consultation. [id number]/[facility] #: [id number] [facility] H[facility]PITALGr[facility]
[2018-05-28] MEDS: NS 0.9% 1000 ML* 1,000 ML IV SCH (10:09)
[2018-05-28] MEDS: Gabapentin CAP(*) 100 MG PO SCH ×2 (10:37→21:29)
[2018-05-28] MEDS: Lactobacillus Acidophilus* 1 TAB PO SCH ×2 (10:38→21:29)
--- NOTE | 2018-05-28 13:08 | PN ---
Subjective Date of Service: 05/28/18 Interval History: HOSPITALIST PROGRESS NOTE Patient seen and examined at bedside. Care reviewed and d/w Judy Hartman RN. He offers no new complaints. Denies abdominal pain, tolerating diet well. Family History: Unchanged from Admission Social History: Unchanged from Admission Past Medical History: Unchanged from Admission Objective Active Medications: Acetaminophen (Tylenol Tab*) 650 mg PO Q4H PRN PRN Reason: FEVER/PAIN Al Hydrox/Mg Hydrox/Simethicone (Maalox Plus*) 30 ml PO Q6H PRN PRN Reason: INDIGESTION Ascorbic Acid (Vitamin C Tab*) 500 mg PO DAILY [facility] Last Admin: 05/27/18 08:37 Dose: 500 mg Atorvastatin Calcium (Lipitor*) 10 mg PO 1700 [facility] Last Admin: 05/27/18 16:42 Dose: 10 mg Cyanocobalamin (Vitamin B12 Tab*) 500 mcg PO DAILY [facility] Last Admin: 05/27/18 08:37 Dose: 500 mcg Dextrose (D50w Syringe 50 Ml*) 12.5 gm IV PUSH .FOR FS < 60 - SS PRN PRN Reason: FS < 60 Digoxin (Lanoxin Tab*) 0.125 mg PO 1700 [facility] Last Admin: 05/27/18 16:42 Dose: 0.125 mg Docusate Sodium (Colace Cap*) 100 mg PO BID PRN PRN Reason: CONSTIPATION Enoxaparin Sodium (Lovenox(*)) 55 mg SUBCUT Q12H [facility] Last Admin: 05/28/18 08:53 Dose: 55 mg Ferrous Sulfate (Ferrous Sulfate Tab*) 325 mg PO DAILY [facility] Last Admin: 05/27/18 08:36 Dose: 325 mg Gabapentin (Neurontin Cap(*)) 100 mg PO BID [facility] Last Admin: 05/28/18 10:37 Dose: Not Given Heparin Sodium (Porcine) (Heparin Flush Picc/Ml/Cvc(*)) 1 - 3 ml FLUSH 0600, 1800 PRN; Protocol PRN Reason: PER PROTOCOL Piperacillin Sod/Tazobactam (Sod 3.375 gm/ Sodium Chloride) 100 mls @ 25 mls/ hr IVPB Q8H [facility] Insulin Human Lispro (Humalog*) 0 units SUBCUT ACHS [facility]; Protocol Last Admin: 05/28/18 12:58 Dose: Not Given Lactobacillus Rhamnosus (Lactobacillus Acidophilus*) 1 tab PO BID [facility] Last Admin: 05/28/18 10:38 Dose: Not Given Levothyroxine Sodium (Synthroid Tab*) 100 mcg PO DAILY@0600 [facility] Last Admin: 05/28/18 11:46 Dose: 100 mcg Melatonin (Melatonin) 3 mg PO BEDTIME PRN; Protocol PRN Reason: SLEEP Metoprolol Succinate (Toprol Xl Tab*) 50 mg PO DAILY [facility] Last Admin: 05/27/18 08:36 Dose: 50 mg Omeprazole (Prilosec Cap*) 20 mg PO DAILY@0600 [facility] Last Admin: 05/27/18 06:02 Dose: 20 mg Polyvinyl Alcohol (Polyvinyl Alcohol 1.4% Opth*) 1 drop BOTH EYES TID PRN PRN Reason: DRY EYE Vital Signs - 8 hr 05/28/18 05/28/18 07:24 08:00 Temperature 98.6 F Pulse Rate 73 Respiratory 18 16 Rate Blood Pressure 135/59 (mmHg) O2 Sat by Pulse 94 Oximetry Oxygen Devices in Use Now: None Appearance: Pleasant gentleman sitting up in a recliner in [facility]. Eyes: No Scleral Icterus Ears/Nose/Mouth/Throat: Mucous Membranes Moist Neck: Trachea Midline Respiratory: Symmetrical Chest Expansion and Respiratory Effort, Clear to Auscultation Cardiovascular: RRR - Normal S1 and S2 Abdominal: NL Sounds; No Tenderness; No Distention Neurological: Alert and Oriented x 3, NL Muscle Strength and Tone Result Diagrams: 05/28/18 06:00 05/28/18 06:00 Assess/Plan/Problems-Billing Assessment: Mr Concepcion is an 88yo M with PMH of type 2 DM, pAfib on AC, diastolic CHF with EF 60-65%, CAD, nephrolithiasis, hypothyroidism, BPH, vitamin B12 deficiency, pancreatic mass, aortic valve endocarditis in 07/30, [place] [facility] [place] for possible Pseudomonas endocarditis, cholecystitis, cholelithiasis, who presented to ED with altered MS and fever, found to have severe sepsis, likely secondary to cholangitis. - Patient Problems (1) Severe sepsis Comment: - Presentation compatible with severe sepsis on admission with fever, tachycardia, tachypnea, and toxic encephalopathy. - qSOFA was 3 on admission. - Source is probable cholangitis. (2) Cholangitis Comment: - Patient was admitted in 04/29 with cholecystitis. At that time his LFTs were minimally elevated, MRCP showed loculated cystic lesions in the pancreas, cholithiasis, but no choledocolithiasis. - This admission Tbili was 4.6 and is now trending down. Suspect he had obstruction, developed cholangitis/severe sepsis, and has now passed a stone. - Blood cultures show no growth so far - d/c Vanco. - Advance diet as tolerated. - ID changed Meropenem to Zosyn. - Awaiting MRCP. - At this point, patient would benefit of cholecystectomy, as he has improved clinically, but remains at high risk for recurrence of severe sepsis / cholangitis. His echo showed improvement of his EF, he has no complaints of chest pain. - RCRI is 2, predicting a 2.4-3.6 risk of cardiac complications. Cardiology input requested with Dr Castillo to optimize patient for surgery. (3) Toxic encephalopathy Comment: - Secondary to severe sepsis in the setting of cholangitis. - His mental status is much improved. (4) Lactic acidosis Comment: - Secondary to sepsis - resolved. 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 - Blood cultures show no growth so far. - Transthoracic echo shows improvement of EF (now 60-65%, from 40-45%) and mitral valve vegetation was not seen. - Continue Zosyn. (6) Atrial fibrillation Comment: - Continue metoprolol and digoxin. - Continue Lovenox. (7) Diabetes mellitus type 2, controlled Comment: - Continue FS with Lispro SS. (8) Thrombocytopenia Comment: - Likely consumptive in the setting of severe sepsis. (9) DVT prophylaxis Comment: - Lovenox bridging. (10) DNR (do not resuscitate) Status and Disposition: Inpatient for management of severe sepsis with risk of sudden decompensation. Transfer to Telemetry floor.
[2018-05-28] MEDS: Ascorbic Acid TAB* 500 MG PO SCH (13:27)
[2018-05-28] MEDS: Cyanocobalamin TAB* 500 MCG PO SCH (13:27)
[2018-05-28] MEDS: Metoprolol Succinate XL TAB* 50 MG PO SCH (13:27)
[2018-05-28] MEDS: Ferrous Sulfate TAB* 325 MG PO SCH (13:27)
[2018-05-28] MEDS: Atorvastatin* 10 MG TAB PO SCH (16:53)
[2018-05-28] MEDS: Digoxin TAB* 0.125 MG PO SCH (16:53)
[2018-05-28 17:15] LABS: INR 1.02 (0.77-1.02)
[2018-05-29] MEDS: Piperacillin/Tazobac ADVAN(*) 3.375 GM in NS 0.9% 100 ML* 100 ML IVPB SCH ×4 (00:58→23:34)
[2018-05-29] MEDS: Levothyroxine TAB* 100 MCG TAB PO SCH (05:18)
[2018-05-29] MEDS: Omeprazole CAP* 20 MG PO SCH (05:18)
[2018-05-29] MEDS: Insulin LISPRO* 1 UNITS UNIT SUBCUT SCH ×5 (08:22→21:44)
[2018-05-29] MEDS: Cyanocobalamin TAB* 500 MCG PO SCH (08:30)
[2018-05-29] MEDS: Metoprolol Succinate XL TAB* 50 MG PO SCH (08:30)
[2018-05-29] MEDS: Lactobacillus Acidophilus* 1 TAB PO SCH ×2 (08:30→21:38)
[2018-05-29] MEDS: Gabapentin CAP(*) 100 MG PO SCH ×2 (08:30→21:38)
[2018-05-29] MEDS: Ascorbic Acid TAB* 500 MG PO SCH (08:30)
[2018-05-29] MEDS: Ferrous Sulfate TAB* 325 MG PO SCH (08:30)
[2018-05-29] MEDS ORDERED: Bupivacaine 0.25% EPI 200,000* 30 ML SDV ONE (10:11)
[2018-05-29] MEDS ORDERED: Buffered Lidocaine 0.9% SYRIN* 5 ML/SYR SYRINGE INTRADERM ONE (10:25)
[2018-05-29] MEDS ORDERED: Iohexol 180 (CONTRAST) 10 ML SDV IV ONE (10:31)
[2018-05-29] MEDS ORDERED: Lactated Ringers 1000 ML Bag* 1,000 ML IV SCH (11:00)
[2018-05-29] MEDS ORDERED: fentaNYL* 50 MCG/ML 2 ML VIAL (100 MCG VIAL) ONE ×2 (12:14→13:31)
[2018-05-29] MEDS ORDERED: Propofol* 10 MG/ML 20 ML BTL ONE (12:15)
[2018-05-29] MEDS ORDERED: Succinylcholine* 20 MG/ML 10 ML VIAL ONE (12:15)
[2018-05-29] MEDS ORDERED: Lidocaine 2% PF * 5 ML VIAL ONE (12:15)
[2018-05-29] MEDS ORDERED: Dexamethasone IV* 4 MG/ML 1 ML (4 MG) ONE (12:15)
[2018-05-29] MEDS ORDERED: Cisatracurium* 2 MG/ML MDV 5 ML ONE (12:15)
[2018-05-29] MEDS ORDERED: Famotidine IV* 10 MG/ML 2 ML (20 mg) ONE (12:15)
[2018-05-29] MEDS ORDERED: Metoprolol Tartrate IV* 1 MG/ML 5 ML VIAL ONE (13:19)
[2018-05-29] MEDS ORDERED: diPHENhydraMINE IV* 50 MG/ML 1 ml VIAL (BENADRYL) IV PRN (13:21)
[2018-05-29] MEDS ORDERED: fentaNYL* 50 MCG/ML 2 ML VIAL (100 MCG VIAL) IV PRN (13:21)
[2018-05-29] MEDS ORDERED: Ondansetron INJ* 2 MG/ML VIAL IV PRN (13:21)
[2018-05-29] MEDS ORDERED: HYDROcodone/ACETAMIN 5-325 MG* 1 TAB PO PRN (13:21)
[2018-05-29] MEDS ORDERED: DiMENhydriNATE IV* 50 MG/ML VIAL IV PUSH PRN (13:21)
[2018-05-29] MEDS ORDERED: Naloxone* 0.4 MG/ML 1 ML VIAL IV PRN (13:21)
--- NOTE | 2018-05-29 14:12 | PN ---
Subjective Date of Service: 05/29/18 Interval History: HOSPITALIST PROGRESS NOTE Patient seen and examined briefly this AM prior to going to OR. Care reviewed and d/w Nola Plasencia RN. He is anxious for surgery today, offers no new complaints. Family History: Unchanged from Admission Social History: Unchanged from Admission Past Medical History: Unchanged from Admission Objective Active Medications: Acetaminophen (Tylenol Tab*) 650 mg PO Q4H PRN PRN Reason: FEVER/PAIN Hydrocodone Bitart/Acetaminophen (Whitman 5-325 Tab*) 1 tab PO ONCE PRN PRN Reason: PAIN - MODERATE Al Hydrox/Mg Hydrox/Simethicone (Maalox Plus*) 30 ml PO Q6H PRN PRN Reason: INDIGESTION Ascorbic Acid (Vitamin C Tab*) 500 mg PO DAILY [facility] Last Admin: 05/29/18 08:30 Dose: 500 mg Atorvastatin Calcium (Lipitor*) 10 mg PO 1700 [facility] Last Admin: 05/28/18 16:53 Dose: 10 mg Cyanocobalamin (Vitamin B12 Tab*) 500 mcg PO DAILY [facility] Last Admin: 05/29/18 08:30 Dose: 500 mcg Dextrose (D50w Syringe 50 Ml*) 12.5 gm IV PUSH .FOR FS < 60 - SS PRN PRN Reason: FS < 60 Digoxin (Lanoxin Tab*) 0.125 mg PO 1700 [facility] Last Admin: 05/28/18 16:53 Dose: 0.125 mg Dimenhydrinate (Dramamine Iv*) 12.5 mg IV PUSH ONCE PRN PRN Reason: NAUSEA/VOMITING Diphenhydramine HCl (Benadryl Iv*) 12.5 mg IV ONCE PRN PRN Reason: ITCHING Docusate Sodium (Colace Cap*) 100 mg PO BID PRN PRN Reason: CONSTIPATION Fentanyl Citrate (Fentanyl*) 25 mcg IV Q5M PRN PRN Reason: PAIN - MODERATE Ferrous Sulfate (Ferrous Sulfate Tab*) 325 mg PO DAILY [facility] Last Admin: 05/29/18 08:30 Dose: 325 mg Gabapentin (Neurontin Cap(*)) 100 mg PO BID [facility] Last Admin: 05/29/18 08:30 Dose: 100 mg Heparin Sodium (Porcine) (Heparin Flush Picc/Ml/Cvc(*)) 1 - 3 ml FLUSH 0600, 1800 PRN; Protocol PRN Reason: PER PROTOCOL Piperacillin Sod/Tazobactam (Sod 3.375 gm/ Sodium Chloride) 100 mls @ 25 mls/ hr IVPB Q8H [facility] Last Admin: 05/29/18 08:31 Dose: 25 mls/hr Lactated Ringer's (Lactated Ringers 1000 Ml Bag*) 1,000 mls @ 35 mls/hr IV PER RATE [facility] Insulin Human Lispro (Humalog*) 0 units SUBCUT ACHS [facility]; Protocol Last Admin: 05/29/18 12:16 Dose: Not Given Lactobacillus Rhamnosus (Lactobacillus Acidophilus*) 1 tab PO BID [facility] Last Admin: 05/29/18 08:30 Dose: 1 tab Levothyroxine Sodium (Synthroid Tab*) 100 mcg PO DAILY@0600 [facility] Last Admin: 05/29/18 05:18 Dose: 100 mcg Melatonin (Melatonin) 3 mg PO BEDTIME PRN; Protocol PRN Reason: SLEEP Metoprolol Succinate (Toprol Xl Tab*) 50 mg PO DAILY [facility] Last Admin: 05/29/18 08:30 Dose: 50 mg Naloxone HCl (Narcan*) 0.08 mg IV Q2M PRN PRN Reason: severe induced resp depression Omeprazole (Prilosec Cap*) 20 mg PO DAILY@0600 [facility] Last Admin: 05/29/18 05:18 Dose: 20 mg Ondansetron HCl (Zofran Inj*) 4 mg IV ONCE PRN PRN Reason: NAUSEA/VOMITING Polyvinyl Alcohol (Polyvinyl Alcohol 1.4% Opth*) 1 drop BOTH EYES TID PRN PRN Reason: DRY EYE Last Admin: 05/28/18 13:26 Dose: 1 drop Vital Signs - 8 hr 05/29/18 05/29/18 05/29/18 07:44 08:00 08:30 Temperature 98.4 F Pulse Rate 71 Respiratory 18 16 16 Rate Blood Pressure 133/59 (mmHg) O2 Sat by Pulse 97 Oximetry Oxygen Devices in Use Now: None Appearance: Elderly gentleman standing up in his room, anxious, but in NAD. Eyes: No Scleral Icterus Ears/Nose/Mouth/Throat: Mucous Membranes Moist Neck: Trachea Midline Neurological: Alert and Oriented x 3, NL Muscle Strength and Tone Result Diagrams: 05/28/18 06:00 05/28/18 06:00 Assess/Plan/Problems-Billing Assessment: Mr Concepcion is an 88yo M with PMH of type 2 DM, pAfib on AC, diastolic CHF with EF 60-65%, CAD, nephrolithiasis, hypothyroidism, BPH, vitamin B12 deficiency, pancreatic mass, aortic valve endocarditis in 07/30, admission to [facility] [place] 04/29 for possible Pseudomonas endocarditis, cholecystitis, cholelithiasis, who presented to ED with altered MS and fever, found to have severe sepsis, likely secondary to cholangitis. - Patient Problems (1) Severe sepsis Comment: - Presentation compatible with severe sepsis on admission with fever, tachycardia, tachypnea, and toxic encephalopathy. - qSOFA was 3 on admission. - Source is probable cholangitis. (2) Cholangitis Comment: - Patient was admitted in 04/29 with cholecystitis. At that time his LFTs were minimally elevated, MRCP showed loculated cystic lesions in the pancreas, cholithiasis, but no choledocolithiasis. - This admission Tbili was 4.6 and is now trending down. Suspect he had obstruction, developed cholangitis/severe sepsis, and has now passed a stone. - MRCP was negative for CBD stone. - Blood cultures show no growth so far - continue Zosyn. - For cholecystectomy today. (3) Toxic encephalopathy Comment: - Secondary to severe sepsis in the setting of cholangitis. - His mental status is much improved. (4) Lactic acidosis Comment: - Secondary to sepsis - resolved. 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 - Blood cultures show no growth so far. - Transthoracic echo shows improvement of EF (now 60-65%, from 40-45%) and mitral valve vegetation was not seen. - Continue Zosyn. (6) Atrial fibrillation Comment: - Continue metoprolol and digoxin. - Resume Lovenox when ok with surgery. (7) Diabetes mellitus type 2, controlled Comment: - Continue FS with Lispro SS. (8) Thrombocytopenia Comment: - Likely consumptive in the setting of severe sepsis - improving. (9) DVT prophylaxis Comment: - Lovenox bridging. (10) DNR (do not resuscitate) Status and Disposition: Inpatient.
[2018-05-29] MEDS ORDERED: Ondansetron INJ* 2 MG/ML VIAL ONE (14:29)
[2018-05-29] MEDS ORDERED: oxyCODONE/Acetamin 5/325 MG* TAB PO PRN (14:55)
[2018-05-29] MEDS ORDERED: Morphine VIAL* 4 MG/ML VIAL (1 ml vial) IV PRN (14:55)
[2018-05-29] MEDS ORDERED: Insulin LISPRO* 1 UNITS UNIT SUBCUT ONE (15:24)
[2018-05-29] MEDS: Digoxin TAB* 0.125 MG PO SCH (17:05)
[2018-05-29] MEDS: Atorvastatin* 10 MG TAB PO SCH (17:05)
--- NOTE | 2018-05-29 18:06 | PN ---
Hospitalist Progress Note Date of Service: 05/29/18 Reevaluated after surgery around 5pm. C/o mild right flank pain, but otherwise feels well. Tolerating clear liquids. Son (Terrance) updated at bedside.
--- NOTE | 2018-05-30 04:12 | OP ---
DATE OF OPERATION: 05/29/18 - ROOM #338 DATE OF : 32 SURGEON: Bao Storm MD TOOLROOM CHECKER: Mary Carrillo NP ANESTHESIOLOGIST: Dr. Castanon. ANESTHESIA: General with local. PRE-OP DIAGNOSIS: Acute and chronic cholecystitis. POST-OP DIAGNOSIS: Acute and chronic cholecystitis. OPERATIVE PROCEDURE: Laparoscopic subtotal cholecystectomy with placement of Ted-Hutchison drain. ESTIMATED BLOOD LOSS: 100 cc. IV FLUIDS: 300 cc of crystalloid. SPECIMENS: Portion of gallbladder. WOUND CLASSIFICATION: IV. COMPLICATIONS: None. BRIEF HISTORY: Mr. Wai Concepcion is an 88-year-old gentleman with significant medical comorbidities, who was recently admitted with sepsis, felt secondary to biliary tract etiology. He has gallbladder sludge as well as HIDA scan on a previous admission, which showed nonfilling of the gallbladder. He had an elevated total bilirubin which returned to normal and there was also concern that he had passed a gallstone, which caused cholangitis. 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 The procedure was also discussed with the patient's both sons, one of whom is his healthcare proxy, as well as the patient. The risks of, but not limited to , bleeding, infection, intraabdominal abscess formation, injury to peritoneal and retroperitoneal structures, possibility of bile duct injury requiring further reconstruction, bile leak, abscess, possibility of an open procedure, the risk of anesthesia, and deep vein thrombosis with embolism were all explained. DESCRIPTION OF PROCEDURE: Written informed consent was obtained, the abdomen was marked with inedible ink, and preoperative antibiotics had been administered. The patient was taken to the operating room and placed in the supine position. Sequential compression devices and a warming blanket were applied. General anesthesia was administered. The abdomen was prepped and draped in the usual sterile fashion. Time-out verification was completed. Small transverse incision was made just above the umbilicus at the midline. The peritoneal cavity was entered under direct vision. A 12 mm blunt port was inserted and the abdomen was insufflated to 15 mmHg. Under direct vision, an 11 mm epigastric port was placed and two 5 mm ports were placed in the right side of the abdominal wall. The liver appeared to be smooth and of normal color without evidence of cirrhosis or nodularity. There was obvious significant amount of inflammation in the right upper quadrant. There was omentum, which was adhered to the anterior abdominal wall and these adhesions were taken down sharply. It was difficult to identify the gallbladder in its typical location, as there was a large amount of firm omentum and it was adherent up to the liver, consistent with the previous episodes of cholecystitis. With care working along the liver edge, we were able to identify the very tip of the gallbladder, and although it was quite thick and difficult to grasp, with some tedious dissection we were able to bluntly and sharply separate the omentum, which had been "walling off" the gallbladder from the top of the gallbladder down to the infundibular area. The gallbladder itself was somewhat softer and easily graspable below, and once we were able to do this, we were able to elevate the gallbladder up over the liver bed to improve visualization. In the infundibular area; however, there was a significant amount of dense inflammation and I attempted to take down some of the peritoneum along the medial and lateral aspects of the gallbladder; however, I did not feel comfortable attempting to try to identify the cystic duct and artery, and thus made a decision to proceed with a subtotal cholecystectomy. I thus picked an area on the infundibular area and opened the gallbladder, and we took the anterior surface of the gallbladder inferiorly up to more to the middle of the gallbladder. The cystic artery was identified and we did clip this and divide it to prevent bleeding. At this point, I was able to look back down the infundibular area and identify where this turned into the cystic duct, and rather than attempting to try to dissect further, once again due to the dense inflammation, I oversewed the infundibulum right at this point with the cystic duct with 2 separate 2-0 silk ties. There had been some bile back flowing from the cystic duct, but this was stopped with the 2 stitches. I then continued to take the rest of the gallbladder off the liver bed leaving its posterior wall on the liver. The gallbladder was then placed in the EndoCatch bag and brought out through the epigastric incision. Hemostasis was assured and I irrigated the right upper quadrant with several liters of saline. I did place some Surgicel into the liver bed as there were some raw areas, although there was no active bleeding. A #10 BONY drain was then placed in the right upper quadrant of the liver bed and brought out through the right lateral port site. All ports were removed under direct vision of the camera. There was no abdominal wall bleeding. The umbilical fascia was closed with interrupted 0 Vicryl suture. The skin at the 3 remaining incisions was closed with subcuticular 4-0 Vicryl suture. Steri- Strips were applied. The patient tolerated the procedure well, was taken to the recovery room in stable condition. [id number]/CPS #: [id number] MTDD
[2018-05-30] MEDS: Levothyroxine TAB* 100 MCG TAB PO SCH (05:13)
[2018-05-30] MEDS: Omeprazole CAP* 20 MG PO SCH (05:13)
[2018-05-30] MEDS: Piperacillin/Tazobac ADVAN(*) 3.375 GM in NS 0.9% 100 ML* 100 ML IVPB SCH ×2 (07:42→16:06)
[2018-05-30] MEDS: Insulin LISPRO* 1 UNITS UNIT SUBCUT SCH ×4 (07:57→22:42)
[2018-05-30] MEDS: Lactobacillus Acidophilus* 1 TAB PO SCH ×2 (09:17→22:45)
[2018-05-30] MEDS: Metoprolol Succinate XL TAB* 50 MG PO SCH (09:17)
[2018-05-30] MEDS: Ferrous Sulfate TAB* 325 MG PO SCH (09:18)
[2018-05-30] MEDS: Gabapentin CAP(*) 100 MG PO SCH ×2 (09:18→22:45)
[2018-05-30] MEDS: Ascorbic Acid TAB* 500 MG PO SCH (09:18)
[2018-05-30] MEDS: Cyanocobalamin TAB* 500 MCG PO SCH (09:18)
--- NOTE | 2018-05-30 09:38 | PN ---
Progress Note - Progress Note Date of Service: 05/30/18 SOAP: Subjective: Comfortable with complaints of severe pain or N/V Oriented to name only. Says he slept well Objective: Temp Pulse Resp BP Pulse Ox 97.9 F 55 20 132/49 99 05/30/18 08:28 05/30/18 08:28 05/30/18 09:18 05/30/18 08:28 05/30/18 08:28 Intake & Output 05/28/18 05/29/18 05/30/18 05/31/18 06:59 06:59 06:59 06:59 Intake Total 2718 1320 1060 Output Total 2050 0 500 Balance 668 1320 560 Weight 133 lb 2.547 oz Intake: IV Fluids 1412 348 LR 300 NS (0.9%) 1412 48 IVPB 556 212 ABX - MEROPENUM 136 ABX - VANCOMYCIN 250 ABX - ZOSYN 212 PB - Magnesium Sulfate 170 Oral 750 1320 500 Output: BONY #1 80 Urine 2050 0 420 Other: Estimated Void Large Large Large Large Date of Last Bowel 05/28/2018 Movement # Bowel Movements 2 1 Estimated Stool Amount Small Large # Voids 1 1 1 1 PEX: Comfortable Lungs are clear Abd is soft and distended. BONY in place with some sanguinous drainage, non- bilious Upper incisions are clean and dry. There is some bleeding from the umbilical incision. Minimal bowel sounds are present. Labs pending Assessment: POD# 1 s/p laparoscopic subtotal cholecystectomy for severe acute and chronic cholecystitis. Plan: Suture placed at umbilical incision for hemostasis Check labs BONY drain IV abx Advance diet as tolerated-suspect ileus Increase activity, pulmonary toilet-- Hold on restarting Lovenox for a full 24 hours-check labs today- no signs of active hemorrhage.
[2018-05-30 12:48] LABS: BUN/Creatinine Ratio 17.2 (8-20); Calcium 7.7 mg/dL (8.6-10.3); Potassium 4.1 mmol/L (3.5-5.0)
[2018-05-30 12:57] LABS: Hematocrit 27 % (42-52); Hemoglobin 8.5 g/dl (14.0-18.0); Mean Corpuscular HGB Conc 32 g/dl (31-36); Mean Corpuscular Hemoglobin 33 pg (27-31); Mean Corpuscular Volume 103 fL (80-94); Mean Platelet Volume 11.3 fL (7.4-10.4); Platelet Count 156 10^3/ul (150-450); Red Blood Count 2.57 10^6/ul (4.00-5.40); Red Cell Distribution Width 19 % (10.5-15); White Blood Count 4.7 10^3/ul (3.5-10.8)
[2018-05-30 13:00] LABS: ABS Basophils 0 10^3/ul (0-0.2); ABS Eosinophils 0 10^3/ul (0-0.6); ABS Lymphocytes 1.3 10^3/ul (1.0-4.8); ABS Monocytes 0.3 10^3/ul (0-0.8); ABS Nucleated RBC 0.1 10^3/ul; Eosinophil % 0 %; Lymphocyte % 27.6 %; Nucleated Red Blood Cells % 1.6; Polychromasia 1+
--- NOTE | 2018-05-30 16:18 | PN ---
Subjective Date of Service: 05/30/18 Interval History: HOSPITALIST PROGRESS NOTE Patient seen and examined at bedside. Care reviewed and d/w Annita Berg RN. He feels better today. RUQ pain is minimal, denies N/V, feels hungry. Had some oozing on umbilical incision and had another suture placed in the area. Family History: Unchanged from Admission Social History: Unchanged from Admission Past Medical History: Unchanged from Admission Objective Active Medications: Acetaminophen (Tylenol Tab*) 650 mg PO Q4H PRN PRN Reason: FEVER/PAIN Al Hydrox/Mg Hydrox/Simethicone (Maalox Plus*) 30 ml PO Q6H PRN PRN Reason: INDIGESTION Ascorbic Acid (Vitamin C Tab*) 500 mg PO DAILY [facility] Last Admin: 05/30/18 09:18 Dose: 500 mg Atorvastatin Calcium (Lipitor*) 10 mg PO 1700 [facility] Last Admin: 05/29/18 17:05 Dose: 10 mg Cyanocobalamin (Vitamin B12 Tab*) 500 mcg PO DAILY [facility] Last Admin: 05/30/18 09:18 Dose: 500 mcg Dextrose (D50w Syringe 50 Ml*) 12.5 gm IV PUSH .FOR FS < 60 - SS PRN PRN Reason: FS < 60 Digoxin (Lanoxin Tab*) 0.125 mg PO 1700 [facility] Last Admin: 05/29/18 17:05 Dose: 0.125 mg Docusate Sodium (Colace Cap*) 100 mg PO BID PRN PRN Reason: CONSTIPATION Ferrous Sulfate (Ferrous Sulfate Tab*) 325 mg PO DAILY [facility] Last Admin: 05/30/18 09:18 Dose: 325 mg Gabapentin (Neurontin Cap(*)) 100 mg PO BID [facility] Last Admin: 05/30/18 09:18 Dose: 100 mg Heparin Sodium (Porcine) (Heparin Flush Picc/Ml/Cvc(*)) 1 - 3 ml FLUSH 0600, 1800 [facility]; Protocol Last Admin: 05/30/18 05:13 Dose: 1 ml Piperacillin Sod/Tazobactam (Sod 3.375 gm/ Sodium Chloride) 100 mls @ 25 mls/ hr IVPB Q8H [facility] Last Admin: 05/30/18 16:06 Dose: 25 mls/hr Insulin Human Lispro (Humalog*) 0 units SUBCUT ACHS [facility]; Protocol Last Admin: 05/30/18 13:21 Dose: 2 units Lactobacillus Rhamnosus (Lactobacillus Acidophilus*) 1 tab PO BID [facility] Last Admin: 05/30/18 09:17 Dose: 1 tab Levothyroxine Sodium (Synthroid Tab*) 100 mcg PO DAILY@0600 [facility] Last Admin: 05/30/18 05:13 Dose: 100 mcg Melatonin (Melatonin) 3 mg PO BEDTIME PRN; Protocol PRN Reason: SLEEP Metoprolol Succinate (Toprol Xl Tab*) 50 mg PO DAILY [facility] Last Admin: 05/30/18 09:17 Dose: 50 mg Morphine Sulfate (Morphine Vial*) 2 mg IV Q2H PRN PRN Reason: PAIN SEVERE Omeprazole (Prilosec Cap*) 20 mg PO DAILY@0600 [facility] Last Admin: 05/30/18 05:13 Dose: 20 mg Oxycodone/Acetaminophen (Percocet 5/325 Tab*) 1 tab PO Q6H PRN PRN Reason: PAIN Polyvinyl Alcohol (Polyvinyl Alcohol 1.4% Opth*) 1 drop BOTH EYES TID PRN PRN Reason: DRY EYE Last Admin: 05/28/18 13:26 Dose: 1 drop Vital Signs - 8 hr 05/30/18 05/30/18 05/30/18 08:28 09:18 11:59 Temperature 97.9 F 97.5 F Pulse Rate 55 58 Respiratory 20 20 16 Rate Blood Pressure 132/49 115/43 (mmHg) O2 Sat by Pulse 99 99 Oximetry 05/30/18 05/30/18 12:07 12:49 Temperature 97.5 F Pulse Rate 58 Respiratory 18 16 Rate Blood Pressure 115/43 (mmHg) O2 Sat by Pulse 99 Oximetry Appearance: Pleasant elderly gentleman lying in bed in NAD. Eyes: No Scleral Icterus Ears/Nose/Mouth/Throat: Mucous Membranes Moist Neck: Trachea Midline Respiratory: Symmetrical Chest Expansion and Respiratory Effort, Clear to Auscultation Cardiovascular: RRR - Normal S1 and S2 Abdominal: - - Mild distention, soft, mild incisional tenderness, BS+ Neurological: Alert and Oriented x 3, NL Muscle Strength and Tone Result Diagrams: 05/30/18 11:50 05/30/18 11:50 Microbiology and Other Data: Microbiology 05/25/18 13:39 Urine Culture - Final Urine No Growth (<1,000 CFU/mL) 05/25/18 11:46 Blood Culture - Preliminary Blood Venous No Growth Day 1 05/25/18 11:50 Aerobic Blood Culture - Preliminary Blood Venous No Growth Day 1 Anaerobic Blood Culture - Preliminary No Growth Day 1 05/25/18 11:50 Influenza Types A,B Antigen - Final Nasal Specimen received for Influenza A/B Molecular testing Assess/Plan/Problems-Billing Assessment: Mr Concepcion is an 88yo M with PMH of type 2 DM, pAfib on AC, CVA, diastolic CHF with EF 60-65%, CAD, nephrolithiasis, hypothyroidism, BPH, vitamin B12 deficiency, pancreatic mass, aortic valve endocarditis in 07/30, [place] [facility] [place] for possible Pseudomonas endocarditis, cholecystitis, cholelithiasis, who presented to ED with altered MS and fever, found to have severe sepsis, likely secondary to cholangitis. - Patient Problems (1) Severe sepsis Comment: - Presentation compatible with severe sepsis on admission with fever, tachycardia, tachypnea, and toxic encephalopathy. - qSOFA was 3 on admission. - Source is probable cholangitis. (2) Cholangitis Comment: - Patient was admitted in 04/29 with cholecystitis. At that time his LFTs were minimally elevated, MRCP showed loculated cystic lesions in the pancreas, cholithiasis, but no choledocolithiasis. - This admission Tbili was 4.6 and is now trending down. Suspect he had obstruction, developed cholangitis/severe sepsis, and has now passed a stone. - MRCP was negative for CBD stone. - S/p laparoscopic subtotal cholecystectomy for severe acute/chronic cholecystitis 05/29/18. - Continue Zosyn. (3) Toxic encephalopathy Comment: - Secondary to severe sepsis in the setting of cholangitis. - His mental status is much improved. (4) Lactic acidosis Comment: - Secondary to sepsis - resolved. 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 - Blood cultures show no growth so far. - Transthoracic echo shows improvement of EF (now 60-65%, from 40-45%) and mitral valve vegetation was not seen. - Continue Zosyn for now. D/w Dr Valdez - tentative plan to switch back to Cefepime on discharge to complete 10 more days of antibiotic at [facility]. (6) Atrial fibrillation Comment: - Continue metoprolol and digoxin. - Resume Lovenox when ok with surgery - had some oozing around umbilical incision earlier today. (7) Diabetes mellitus type 2, controlled Comment: - Add Lantus and continue Lispro SS. (8) Thrombocytopenia Comment: - Likely consumptive in the setting of severe sepsis - resolved. (9) DVT prophylaxis Comment: - SCDs. - Lovenox bridging when ok with surgery. (10) DNR (do not resuscitate) Status and Disposition: Inpatient.
[2018-05-30] MEDS: Digoxin TAB* 0.125 MG PO SCH (16:47)
[2018-05-30] MEDS: Atorvastatin* 10 MG TAB PO SCH (16:47)
[2018-05-30] MEDS: Insulin GLARGINE(*) 1 UNITS UNIT SUBCUT SCH (16:48)
[2018-05-30] MEDS: Enoxaparin(*) 60 MG/0.6 ML SYR SUBCUT SCH (22:46)
[2018-05-31] MEDS: Piperacillin/Tazobac ADVAN(*) 3.375 GM in NS 0.9% 100 ML* 100 ML IVPB SCH ×4 (00:27→23:15)
[2018-05-31] MEDS: Levothyroxine TAB* 100 MCG TAB PO SCH (06:16)
[2018-05-31] MEDS: Omeprazole CAP* 20 MG PO SCH (06:16)
[2018-05-31 07:07] LABS: BUN/Creatinine Ratio 12.1 (8-20); Calcium 8.2 mg/dL (8.6-10.3); EGFR Non-African American 78.8 (>60); Potassium 3.6 mmol/L (3.5-5.0)
[2018-05-31 07:55] LABS: ABS Basophils 0 10^3/ul (0-0.2); ABS Eosinophils 0 10^3/ul (0-0.6); ABS Neutrophils 3.1 10^3/ul (1.5-7.7); Lymphocytes % 38 %; Monocytes % 8 %; Neutrophil % 54 %; Nucleated Red Blood Cells/100 6 (0-0)
[2018-05-31 07:56] LABS: Hematocrit 28 % (42-52); Mean Corpuscular HGB Conc 32 g/dl (31-36); Mean Corpuscular Hemoglobin 33 pg (27-31); Mean Corpuscular Volume 102 fL (80-94); Mean Platelet Volume 11.2 fL (7.4-10.4); Platelet Count 180 10^3/ul (150-450); Red Blood Count 2.76 10^6/ul (4.00-5.40); Red Cell Distribution Width 19 % (10.5-15); White Blood Count 5.7 10^3/ul (3.5-10.8)
[2018-05-31] MEDS: Insulin LISPRO* 1 UNITS UNIT SUBCUT SCH ×4 (08:21→20:20)
[2018-05-31] MEDS: Metoprolol Succinate XL TAB* 50 MG PO SCH (10:09)
[2018-05-31] MEDS: Ascorbic Acid TAB* 500 MG PO SCH (10:09)
[2018-05-31] MEDS: Gabapentin CAP(*) 100 MG PO SCH ×2 (10:09→20:20)
[2018-05-31] MEDS: Lactobacillus Acidophilus* 1 TAB PO SCH ×2 (10:09→20:20)
[2018-05-31] MEDS: Ferrous Sulfate TAB* 325 MG PO SCH (10:09)
[2018-05-31] MEDS: Cyanocobalamin TAB* 500 MCG PO SCH (10:09)
[2018-05-31] MEDS: Enoxaparin(*) 60 MG/0.6 ML SYR SUBCUT SCH ×2 (10:10→20:20)
--- NOTE | 2018-05-31 11:32 | PN ---
Progress Note - Progress Note Date of Service: 05/31/18 SOAP: Subjective: Doing well-OOB in chair, no N/V and taking some po No flatus Objective: Temp Pulse Resp BP Pulse Ox 97.6 F 66 18 139/54 92 05/31/18 07:38 05/31/18 07:38 05/31/18 10:09 05/31/18 07:38 05/31/18 07:38 Intake & Output 05/29/18 05/30/18 05/31/18 06/01/18 06:59 06:59 06:59 06:59 Intake Total 1320 1060 2853 330 Output Total 0 500 187 Balance 5864 457 1557 330 Weight 133 lb 2.547 oz Intake: IV Fluids 348 58 LR 300 NS (0.9%) 48 58 IVPB 212 425 ABX - ZOSYN 212 425 Oral 3621 721 3514 330 Output: BONY #1 80 12 Urine 0 420 175 Other: Estimated Void Large Large Medium # Bowel Movements 1 0 Estimated Stool Amount Large # Voids 1 1 2 PEX: Comfortable Abd is soft and slightly distended. Bowel sounds are present. Incisions are CDI , BONY in place with small amount of serosanguinous fluid in bulb Laboratory Results - last 24 hr 05/30/18 05/30/18 05/30/18 11:50 11:50 11:52 WBC 4.7 RBC 2.57 L Hgb 8.5 L Hct 27 L MCV 103 H MCH 33 H MCHC 32 RDW 19 H Plt Count 156 MPV 11.3 H Neut % (Auto) 64.1 Lymph % (Auto) 27.6 [place] % (Auto) 7.5 Eos % (Auto) 0 Baso % (Auto) 0.8 Absolute Neuts (auto) 3.0 Absolute Lymphs (auto) 1.3 Absolute Monos (auto) 0.3 Absolute Eos (auto) 0 Absolute Basos (auto) 0 Absolute Nucleated RBC 0.1 Neutrophils % Lymphocytes % Monocytes % Eosinophils % Basophils % Nucleated RBC % 1.6 Abs Neuts (Manual) Abs Lymphs (Manual) Abs Monocytes (Manual) Absolute Eos (Manual) Abs Basophils (Manual) Nucleated RBCs/100 WBC Normal RBC Morphology Polychromasia 1+ Hypochromasia 1+ Macrocytosis 2+ Sodium 136 Potassium 4.1 Chloride 107 Carbon Dioxide 23 Anion Gap 6 BUN 15 Creatinine 0.87 Est GFR ( Amer) 100.4 Est GFR (Non-Af Amer) 83.0 BUN/Creatinine Ratio 17.2 Glucose 244 H POC Glucose (mg/dL) 225 H Calcium 7.7 L 05/30/18 05/30/18 05/31/18 16:51 21:54 06:30 WBC RBC Hgb Hct MCV MCH MCHC RDW Plt Count MPV Neut % (Auto) Lymph % (Auto) [place] % (Auto) Eos % (Auto) Baso % (Auto) Absolute Neuts (auto) Absolute Lymphs (auto) Absolute Monos (auto) Absolute Eos (auto) Absolute Basos (auto) Absolute Nucleated RBC Neutrophils % Lymphocytes % Monocytes % Eosinophils % Basophils % Nucleated RBC % Abs Neuts (Manual) Abs Lymphs (Manual) Abs Monocytes (Manual) Absolute Eos (Manual) Abs Basophils (Manual) Nucleated RBCs/100 WBC Normal RBC Morphology Polychromasia Hypochromasia Macrocytosis Sodium 142 Potassium 3.6 Chloride 110 Carbon Dioxide 27 Anion Gap 5 BUN 11 Creatinine 0.91 Est GFR ( Amer) 95.4 Est GFR (Non-Af Amer) 78.8 BUN/Creatinine Ratio 12.1 Glucose 71 POC Glucose (mg/dL) 102 H 128 H Calcium 8.2 L 05/31/18 05/31/18 06:30 08:03 WBC 5.7 RBC 2.76 L Hgb 9.0 L Hct 28 L MCV 102 H MCH 33 H MCHC 32 RDW 19 H Plt Count 180 MPV 11.2 H Neut % (Auto) Lymph % (Auto) [place] % (Auto) Eos % (Auto) Baso % (Auto) Absolute Neuts (auto) Absolute Lymphs (auto) Absolute Monos (auto) Absolute Eos (auto) Absolute Basos (auto) Absolute Nucleated RBC Neutrophils % 54 Lymphocytes % 38 Monocytes % 8 Eosinophils % 0 Basophils % 0 Nucleated RBC % Abs Neuts (Manual) 3.1 Abs Lymphs (Manual) 2.2 Abs Monocytes (Manual) 0.5 Absolute Eos (Manual) 0 Abs Basophils (Manual) 0 Nucleated RBCs/100 WBC 6 H Normal RBC Morphology Not Reportable Polychromasia Hypochromasia 2+ Macrocytosis Sodium Potassium Chloride Carbon Dioxide Anion Gap BUN Creatinine Est GFR ( Amer) Est GFR (Non-Af Amer) BUN/Creatinine Ratio Glucose POC Glucose (mg/dL) 79 Calcium Assessment: POD# 2 s/p lap choly for acute cholecystitis-doing well Endocarditis Plan: Advance diet, D/C IVF D/C BONY tomorrow No further antibiotics needed from surgical standpoint OK for D/C tomorrow-needs further IV abx for endocarditis Lovenox Care discussed with son yesterday on phone
--- NOTE | 2018-05-31 14:38 | PN ---
Subjective Date of Service: 05/31/18 Interval History: Pt seen and examined. Meds and labs reviewed. CC: N/A ROS: Denied BECK/dizziness, F/C, N/V, CP, SOB, increased cough, sputum production , abd pain, diarrhea, constipation, dysuria, myalgias, arthralgias, throat pain , and new skin lesions. The rest of the 14 point ROS are unremarkable. PHYSICAL EXAM: GEN APPEARANCE: Awake, not in acute distress HEENT: NC/AT, PERRLA, moist oral mucosa, (-) throat erythema NECK: Soft, supple, (-) cervical LAD, (-)JVD HEART: S1S2 WNL, RRR, No MRG CHEST: CTA, BL, GAE, No W/R/R ABD: Soft, ND/appropriately tender post op, NABS 4x Q EXT: No C/C/E SKIN: Warm to touch PSYCH: No active psychosis, hallucinations, depression, SI/HI Family History: Unchanged from Admission Social History: Unchanged from Admission Past Medical History: Unchanged from Admission Objective Active Medications: Acetaminophen (Tylenol Tab*) 650 mg PO Q4H PRN PRN Reason: FEVER/PAIN Al Hydrox/Mg Hydrox/Simethicone (Maalox Plus*) 30 ml PO Q6H PRN PRN Reason: INDIGESTION Ascorbic Acid (Vitamin C Tab*) 500 mg PO DAILY [facility] Last Admin: 05/31/18 10:09 Dose: 500 mg Atorvastatin Calcium (Lipitor*) 10 mg PO 1700 [facility] Last Admin: 05/30/18 16:47 Dose: 10 mg Cyanocobalamin (Vitamin B12 Tab*) 500 mcg PO DAILY [facility] Last Admin: 05/31/18 10:09 Dose: 500 mcg Dextrose (D50w Syringe 50 Ml*) 12.5 gm IV PUSH .FOR FS < 60 - SS PRN PRN Reason: FS < 60 Digoxin (Lanoxin Tab*) 0.125 mg PO 1700 [facility] Last Admin: 05/30/18 16:47 Dose: 0.125 mg Docusate Sodium (Colace Cap*) 100 mg PO BID PRN PRN Reason: CONSTIPATION Enoxaparin Sodium (Lovenox(*)) 55 mg SUBCUT Q12H [facility] Last Admin: 05/31/18 10:10 Dose: 55 mg Ferrous Sulfate (Ferrous Sulfate Tab*) 325 mg PO DAILY [facility] Last Admin: 05/31/18 10:09 Dose: 325 mg Gabapentin (Neurontin Cap(*)) 100 mg PO BID [facility] Last Admin: 05/31/18 10:09 Dose: 100 mg Heparin Sodium (Porcine) (Heparin Flush Picc/Ml/Cvc(*)) 1 - 3 ml FLUSH 0600, 1800 [facility]; Protocol Last Admin: 05/31/18 06:16 Dose: 1 ml Piperacillin Sod/Tazobactam (Sod 3.375 gm/ Sodium Chloride) 100 mls @ 25 mls/ hr IVPB Q8H [facility] Insulin Glargine (Lantus(*)) 10 units SUBCUT Q24H [facility] Last Admin: 05/30/18 16:48 Dose: 10 units Insulin Human Lispro (Humalog*) 0 units SUBCUT ACHS [facility]; Protocol Last Admin: 05/31/18 11:52 Dose: Not Given Lactobacillus Rhamnosus (Lactobacillus Acidophilus*) 1 tab PO BID [facility] Last Admin: 05/31/18 10:09 Dose: 1 tab Levothyroxine Sodium (Synthroid Tab*) 100 mcg PO DAILY@0600 [facility] Last Admin: 05/31/18 06:16 Dose: 100 mcg Melatonin (Melatonin) 3 mg PO BEDTIME PRN; Protocol PRN Reason: SLEEP Metoprolol Succinate (Toprol Xl Tab*) 50 mg PO DAILY [facility] Last Admin: 05/31/18 10:09 Dose: 50 mg Morphine Sulfate (Morphine Vial*) 2 mg IV Q2H PRN PRN Reason: PAIN SEVERE Omeprazole (Prilosec Cap*) 20 mg PO DAILY@0600 [facility] Last Admin: 05/31/18 06:16 Dose: 20 mg Oxycodone/Acetaminophen (Percocet 5/325 Tab*) 1 tab PO Q6H PRN PRN Reason: PAIN Polyvinyl Alcohol (Polyvinyl Alcohol 1.4% Opth*) 1 drop BOTH EYES TID PRN PRN Reason: DRY EYE Last Admin: 05/28/18 13:26 Dose: 1 drop Vital Signs - 8 hr 05/31/18 05/31/18 05/31/18 07:38 08:00 10:09 Temperature 97.6 F Pulse Rate 66 Respiratory 16 18 18 Rate Blood Pressure 139/54 (mmHg) O2 Sat by Pulse 92 100 Oximetry 05/31/18 05/31/18 11:36 11:52 Temperature 97.5 F Pulse Rate 58 Respiratory 18 18 Rate Blood Pressure 144/63 (mmHg) O2 Sat by Pulse 100 Oximetry Oxygen Devices in Use Now: None Result Diagrams: 05/31/18 06:30 05/31/18 06:30 Microbiology and Other Data: Microbiology 05/25/18 13:39 Urine Culture - Final Urine No Growth (<1,000 CFU/mL) 05/25/18 11:46 Blood Culture - Preliminary Blood Venous No Growth Day 1 05/25/18 11:50 Aerobic Blood Culture - Preliminary Blood Venous No Growth Day 1 Anaerobic Blood Culture - Preliminary No Growth Day 1 05/25/18 11:50 Influenza Types A,B Antigen - Final Nasal Specimen received for Influenza A/B Molecular testing Assess/Plan/Problems-Billing Assessment: Mr Concepcion is an 88yo M with PMH of type 2 DM, pAfib on AC, CVA, diastolic CHF with EF 60-65%, CAD, nephrolithiasis, hypothyroidism, BPH, vitamin B12 deficiency, pancreatic mass, aortic valve endocarditis in 07/30, admission to [facility] [place] 04/29 for possible Pseudomonas endocarditis, cholecystitis, cholelithiasis, who presented to ED with altered MS and fever, found to have severe sepsis, likely secondary to cholangitis. - Patient Problems (1) Severe sepsis Current Visit: Yes Status: Acute Code(s): A41.9 - SEPSIS, UNSPECIFIED ORGANISM; R65.20 - SEVERE SEPSIS WITHOUT SEPTIC SHOCK SNOMED Code(s): 54260182 Comment: -Resolved - Presentation compatible with severe sepsis on admission with fever, tachycardia, tachypnea, and toxic encephalopathy. - qSOFA was 3 on admission. - Source is probable cholangitis. (2) Cholangitis Current Visit: Yes Status: Acute Code(s): K83.09 - OTHER CHOLANGITIS SNOMED Code(s): 14239304 Comment: -POD# 2 s/p lap choly for acute cholecystitis-doing well -Improved - Patient was admitted in 04/29 with cholecystitis. At that time his LFTs were minimally elevated, MRCP showed loculated cystic lesions in the pancreas, cholithiasis, but no choledocolithiasis. -D/W Dr. Abdalla -Continue Zosyn for now and tomorrow can go back on Cefepime 1g q12h x 10 more days - This admission Tbili was 4.6 and is now trending down. Suspect he had obstruction, developed cholangitis/severe sepsis, and has now passed a stone. - MRCP was negative for CBD stone. - S/p laparoscopic subtotal cholecystectomy for severe acute/chronic cholecystitis 05/29/18. - Continue Zosyn. -Agree w/advancement of diet today (3) Toxic encephalopathy Current Visit: Yes Status: Acute Code(s): G92 - TOXIC ENCEPHALOPATHY SNOMED Code(s): 87171279 Comment: - Secondary to severe sepsis in the setting of cholangitis. - His mental status is much improved. (4) Lactic acidosis Current Visit: Yes Status: Acute Code(s): E87.2 - ACIDOSIS SNOMED Code(s) : 71275818 Comment: - Secondary to sepsis - resolved. (5) Endocarditis of mitral valve Current Visit: Yes Status: Acute Code(s): I05.8 - OTHER RHEUMATIC MITRAL VALVE DISEASES SNOMED Code(s): 48558584 Comment: - Pseudomonas endocarditis (bioprosthetic valve) -Likely from cholecystitis that subsequently led to cholangitis - Blood cultures show no growth so far. - Transthoracic echo shows improvement of EF (now 60-65%, from 40-45%) and mitral valve vegetation was not seen. - Continue Zosyn for now. D/w Dr Abdalla - tentative plan to switch back to Cefepime on discharge to complete 10 more days of antibiotic at [facility]. (6) Atrial fibrillation Current Visit: Yes Status: Acute Code(s): I48.91 - UNSPECIFIED ATRIAL FIBRILLATION SNOMED Code(s): 74590636 Comment: - Continue metoprolol and digoxin. - Resume Lovenox when ok with surgery - had some oozing around umbilical incision earlier today. -Will start pt on Coumadin (7) Diabetes mellitus type 2, controlled Current Visit: Yes Status: Acute Code(s): E11.9 - TYPE 2 DIABETES MELLITUS WITHOUT COMPLICATIONS SNOMED Code(s): 20490635 Comment: - Add Lantus and continue Lispro SS. (8) DVT prophylaxis Current Visit: Yes Status: Acute Code(s): GFZ9261 - SNOMED Code(s): 864857931 Comment: - SCDs. - Continue Lovenox and consider starting coumadin vs. restartin Eliquis in AM Status and Disposition: -For possible D/C in AM to [facility].
[2018-05-31] MEDS: Digoxin TAB* 0.125 MG PO SCH (18:11)
[2018-05-31] MEDS: Atorvastatin* 10 MG TAB PO SCH (18:11)
[2018-05-31] MEDS: Insulin GLARGINE(*) 1 UNITS UNIT SUBCUT SCH (18:11)
[2018-06-01 03:49] VITALS: BP 143/60
[2018-06-01] MEDS: Omeprazole CAP* 20 MG PO SCH (05:43)
[2018-06-01] MEDS: Levothyroxine TAB* 100 MCG TAB PO SCH (05:43)
[2018-06-01 06:01] LABS: Hematocrit 26 % (42-52); Hemoglobin 8.3 g/dl (14.0-18.0); Mean Corpuscular HGB Conc 32 g/dl (31-36); Mean Corpuscular Hemoglobin 33 pg (27-31); Mean Corpuscular Volume 103 fL (80-94); Mean Platelet Volume 11.1 fL (7.4-10.4); Platelet Count 187 10^3/ul (150-450); Red Blood Count 2.56 10^6/ul (4.00-5.40); Red Cell Distribution Width 19 % (10.5-15); White Blood Count 5.9 10^3/ul (3.5-10.8)
[2018-06-01 06:14] LABS: Albumin 2.8 g/dL (3.2-5.2); Albumin/Globulin Ratio 1.2 (1-3); BUN/Creatinine Ratio 15.4 (8-20); Calcium 8.3 mg/dL (8.6-10.3); EGFR Non-African American 78.8 (>60); Globulin 2.4 g/dL (2-4); Magnesium 1.6 mg/dL (1.9-2.7); Potassium 3.7 mmol/L (3.5-5.0); Total Bilirubin 0.8 mg/dL (0.2-1.0); Total Protein 5.2 g/dL (6.4-8.9)
[2018-06-01 06:22] LABS: ABS Basophils 0 10^3/ul (0-0.2); ABS Eosinophils 0 10^3/ul (0-0.6); ABS Lymphocytes 2.3 10^3/ul (1.0-4.8); ABS Monocytes 0.6 10^3/ul (0-0.8); ABS Neutrophils 2.9 10^3/ul (1.5-7.7); ABS Nucleated RBC 0 10^3/ul; Eosinophil % 0 %; Lymphocyte % 38.3 %; Nucleated Red Blood Cells % 0.6
[2018-06-01] MEDS: Gabapentin CAP(*) 100 MG PO SCH ×2 (08:00→10:11)
[2018-06-01] MEDS: Piperacillin/Tazobac ADVAN(*) 3.375 GM in NS 0.9% 100 ML* 100 ML IVPB SCH (08:00)
[2018-06-01] MEDS: Ascorbic Acid TAB* 500 MG PO SCH (08:01)
[2018-06-01] MEDS: Lactobacillus Acidophilus* 1 TAB PO SCH ×2 (08:01→10:12)
[2018-06-01] MEDS: Ferrous Sulfate TAB* 325 MG PO SCH (08:01)
[2018-06-01] MEDS: Cyanocobalamin TAB* 500 MCG PO SCH (08:02)
[2018-06-01] MEDS: Enoxaparin(*) 60 MG/0.6 ML SYR SUBCUT SCH ×2 (08:02→10:13)
[2018-06-01] MEDS: Metoprolol Succinate XL TAB* 50 MG PO SCH ×2 (08:02→10:12)
[2018-06-01] MEDS ORDERED: Potassium Phosphate IV* 15 MMOLE in NS 0.9% 250 ML* 250 ML IVPB ONE (08:54)
[2018-06-01] MEDS ORDERED: Magnesium Sulf 4 GM/100 ML IV* 4,000 MG/100 ML BAG IVPB ONE (08:55)
--- NOTE | 2018-06-01 09:26 | PN ---
Progress Note - Progress Note Date of Service: 06/01/18 SOAP: Subjective: Sitting in chair eating breakfast- Nurses report some bleeding from several incision sites Objective: Temp Pulse Resp BP Pulse Ox 98.4 F 76 19 143/60 94 06/01/18 03:47 06/01/18 03:47 06/01/18 05:43 06/01/18 03:47 06/01/18 03:47 Intake & Output 05/30/18 05/31/18 06/01/18 06/02/18 06:59 06:59 06:59 06:59 Intake Total 1060 2853 1950 Output Total 500 187 422 Balance 560 2666 1528 Intake: IV Fluids 348 58 20 LR 300 NS (0.9%) 48 58 20 IVPB 212 425 210 ABX - ZOSYN 212 425 210 Oral 500 2370 1720 Output: BONY #1 80 12 22 Urine 420 175 400 Other: Estimated Void Large Medium Small # Bowel Movements 0 1 Estimated Stool Amount Small # Voids 1 2 1 PEX: Comfortable Lungs are clear Abd is soft and slightly distended. Bowel sounds are present. BONY in place with small amount of SG fluid in bulb Slight oozing from midline incisions and around drain-no hematoma, ecchymosis Laboratory Results - last 24 hr 05/31/18 05/31/18 06/01/18 11:41 16:50 05:40 WBC 5.9 RBC 2.56 L Hgb 8.3 L Hct 26 L MCV 103 H MCH 33 H MCHC 32 RDW 19 H Plt Count 187 MPV 11.1 H Neut % (Auto) 50.2 Lymph % (Auto) 38.3 Dewey % (Auto) 10.7 Eos % (Auto) 0 Baso % (Auto) 0.8 Absolute Neuts (auto) 2.9 Absolute Lymphs (auto) 2.3 Absolute Monos (auto) 0.6 Absolute Eos (auto) 0 Absolute Basos (auto) 0 Absolute Nucleated RBC 0 Nucleated RBC % 0.6 Sodium Potassium Chloride Carbon Dioxide Anion Gap BUN Creatinine Est GFR ( Amer) Est GFR (Non-Af Amer) BUN/Creatinine Ratio Glucose POC Glucose (mg/dL) 145 H 145 H Calcium Phosphorus Magnesium Total Bilirubin AST ALT Alkaline Phosphatase Total Protein Albumin Globulin Albumin/Globulin Ratio 06/01/18 05:40 WBC RBC Hgb Hct MCV MCH MCHC RDW Plt Count MPV Neut % (Auto) Lymph % (Auto) Dewey % (Auto) Eos % (Auto) Baso % (Auto) Absolute Neuts (auto) Absolute Lymphs (auto) Absolute Monos (auto) Absolute Eos (auto) Absolute Basos (auto) Absolute Nucleated RBC Nucleated RBC % Sodium 140 Potassium 3.7 Chloride 109 Carbon Dioxide 28 Anion Gap 3 BUN 14 Creatinine 0.91 Est GFR ( Amer) 95.4 Est GFR (Non-Af Amer) 78.8 BUN/Creatinine Ratio 15.4 Glucose 120 H POC Glucose (mg/dL) Calcium 8.3 L Phosphorus 2.0 L Magnesium 1.6 L Total Bilirubin 0.80 AST 30 ALT 27 Alkaline Phosphatase 82 Total Protein 5.2 L Albumin 2.8 L Globulin 2.4 Albumin/Globulin Ratio 1.2 Assessment: POD# 3 s/p lap choly for acute cholecystitis Slight oozing from above incisions Plan: D/C drain today Suture incisions Hold Lovenox-discussed with Dr. Shah If no further bleeding, OK from surgical service to be discharged this afternoon.
[2018-06-01] MEDS: Insulin LISPRO* 1 UNITS UNIT SUBCUT SCH ×2 (10:09→13:05)
--- NOTE | 2018-06-01 10:48 | PN ---
Progress Note - Progress Note Date of Service: 06/01/18 Note: Surgery: Per Dr. Storm request, BONY drain removed and additional 3-0 prolene sutures were placed at umbilical, subxiphoid and BONY site incisions (after infiltration of 1% plain lidocaine) 2/2 ongoing bloody oozing. Lovenox also held for today for the same reason.
--- NOTE | 2018-06-01 15:53 | DS ---
CC: Dr. Holder DATE OF ADMISSION: 05/25/2018. DATE OF DISCHARGE: 06/01/2018. DISCHARGE DIAGNOSES: 1. Severe sepsis likely due to cholangitis, sepsis has resolved. 2. Metabolic encephalopathy likely due to number one, resolved. 3. Pseudomonas endocarditis, history of; the patient has ten more days of Cefepime left as prescribe d. 4. History of atrial fibrillation; the patient to withhold Eliquis for today and may restart in the a.m. 5. Diabetes mellitus type 2. DISCHARGE MEDICATIONS: 1. Tylenol 650 mg p.o. q.4 prn. 2. Artificial Tears one drop to both eyes prn t.i.d. 3. Ascorbic Acid 500 mg p.o. daily. 4. Atorvastatin 10 mg p.o. daily. 5. Cyanocobalamin 500 mcg p.o. daily. 6. Digoxin 0.125 mg p.o. daily. 7. Colace 100 mg p.o. b.i.d. 8. Ferrous Sulfate 325 mg p.o. daily. 9. Gabapentin 100 mg p.o. b.i.d. 10. Lactobacillus Acidophilus two tabs p.o. daily. 11. Levothyroxine 100 mcg p.o. q.a.m. 12. Melatonin 3 mg p.o. at bedtime. 13. Metoprolol Succinate 50 mg p.o. daily XL tabs. 14. Omeprazole 20 mg p.o. daily. 15. Percocet 5/325 tabs one tab p.o. q.6 prn, 12 tabs dispensed with 0 refills. 16. Eliquis 2.5 mg p.o. b.i.d. to start the following day. 17. Cefepime 1 gm IV q.12 for 10 more days at [facility]. 18. Metformin 500 mg p.o. b.i.d. HISTORY OF PRESENT ILLNESS/HOSPITAL COURSE: The patient is an 88-year-old, gentleman with a history of atrial fibrillation, recent endocarditis with pseudomonas who was sent to rehab at [facility] after being worked up and being placed on IV antibiotics for his recently diagnosed pseudomon as endocarditis which is thought to be due to a possible urinary source or cholecystitis or cholelith iasis. The patient was readmitted to our service on 05/25/2018 with a chief complaint of altered men sujatha status and fever where he was found to be severely septic likely due to cholangitis and may likel y have arisen due to cholecystitis that was diagnosed back in April of 2018. He had been placed o n Zosyn on this admission and I have touched base with Dr. Abdalla who mentions that the patient danii l require ten more days of Cefepime IV as an outpatient once the patient has been discharged from the hospital. His anticoagulation was transitioned from Eliquis to Lovenox due to his perioperative sta tus and the patient has been re-evaluated by Dr. Storm prior to his discharge to [facility] en his earlier concerns of some weeping perioperative areas. Lovenox was momentarily halted and can be resumed in the a.m. in the form of Eliquis. The patient had been advised to follow-up and recall his PCP within three days post DC and to follow- up with Dr. Storm in one to two weeks and to call his office to make/confirm an appointment. He is to continue on his Cefepime as ordered for ten more days then stop. He was advised to follow-up w rob Abdalla within one to two weeks post DC and to call his office to do so. He was advised to continue to hold his Eliquis for today; however, he may restart tomorrow as long as there are not an y contraindications. He was advised that if his symptoms resume or develop new ones or he feels unwe ll for any reason, to call his PCP first. If his PCP cannot entertain him due to scheduling issues a lone, he was advised to call [facility] if the issue is not emergent. He was advised to call my office regarding any questions, concerns, or further clarifications regarding his discharge plans and his prescriptions and to take his medications as prescribed. REVIEW OF SYMPTOMS: The patient currently denied any headaches, dizziness, fevers, chills, nausea, v omiting, chest pain, shortness of breath, increased cough or sputum production, abdominal pain, diarr hea, constipation, pain and/or increased frequency in urination, myalgias, arthralgias, throat pain, or new skin lesions. The rest of the 14 point review of systems are otherwise unremarkable. PHYSICAL EXAMINATION: General appearance: The patient is awake, not in acute distress. Most recent vital signs of record: Blood pressure 133/60, 18 per minute respiratory rate, saturating at 94 perc ent room air, heart rate of 66 beats per minute. HEENT: Normocephalic, atraumatic. PERRLA. Extrao cular muscles intact. Negative for icterus. Moist oral mucosa. Negative throat erythema. Neck: So ft, supple with no cervical lymphadenopathy, no JVD. Heart: S1, S2 within normal limits. Regular r ate and rhythm. No murmurs, rubs or gallops. Chest: Clear to auscultation bilaterally. Good air e ntry. No wheezes, rales, or rhonchi. Abdomen: Soft, nondistended, appropriately tender on the perio perative site. Extremities: No cyanosis, clubbing, or edema. Psychiatric: No active psychosis, dep ression, suicidal or homicidal ideation. Skin: Warm to touch. TIME SPENT: Total time spent evaluating the patient, reviewing pertinent data and appropriate docume ntation is 55 minutes. [id number]/[facility] #: [id number]
== END 2018-06-01 16:20 | DRG 853 ==
LOC: ED 11:00 → MED 14:58 → ICU 17:30 → MEDTELE 05-27 11:16 → SSU 05-29 16:17
PROVIDERS: ADMIT Internal Medicine; ATTEND Student in an Organized Health Care Education/Training Program
PROC: 05HY33Z Insertion of Infusion Device into Upper Vein, Percutaneous Approach (ICD-10-PCS; 2018-05-29)
PROC: 0FB44ZZ Excision of Gallbladder, Percutaneous Endoscopic Approach (ICD-10-PCS; principal; 2018-05-29 13:30)
DX: A41.52 Sepsis due to Pseudomonas (principal); G92 Toxic encephalopathy; I33.0 Acute and subacute infective endocarditis; G81.90 Hemiplegia, unspecified affecting unspecified side; I31.9 Disease of pericardium, unspecified; K81.2 Acute cholecystitis with chronic cholecystitis; K83.09 Other cholangitis; T82.6XXA Infection and inflammatory reaction due to cardiac valve prosthesis, initial encounter; E87.2 Acidosis; R65.20 Severe sepsis without septic shock; K86.9 Disease of pancreas, unspecified; I48.2 Chronic atrial fibrillation; I48.0 Paroxysmal atrial fibrillation; I50.9 Heart failure, unspecified; I25.10 Atherosclerotic heart disease of native coronary artery without angina pectoris; E03.9 Hypothyroidism, unspecified; E53.8 Deficiency of other specified B group vitamins; Z66 Do not resuscitate; I27.20 Pulmonary hypertension, unspecified; N40.0 Benign prostatic hyperplasia without lower urinary tract symptoms; K21.9 Gastro-esophageal reflux disease without esophagitis; F03.90 Unspecified dementia, unspecified severity, without behavioral disturbance, psychotic disturbance, mood disturbance, and anxiety; D64.9 Anemia, unspecified; H54.40 Blindness, one eye, unspecified eye; R29.702 NIHSS score 2; E80.6 Other disorders of bilirubin metabolism; E11.9 Type 2 diabetes mellitus without complications; D69.6 Thrombocytopenia, unspecified; Z87.442 Personal history of urinary calculi; Z95.828 Presence of other vascular implants and grafts; Z95.2 Presence of prosthetic heart valve; Z86.73 Personal history of transient ischemic attack (TIA), and cerebral infarction without residual deficits; Z98.41 Cataract extraction status, right eye; Z82.49 Family history of ischemic heart disease and other diseases of the circulatory system; Z79.01 Long term (current) use of anticoagulants; Z79.84 Long term (current) use of oral hypoglycemic drugs; Z79.52 Long term (current) use of systemic steroids
CPT/HCPCS: 36415; 70450; 71045; 74181; 76376; 76705; 80048; 80053; 80202; 81003; 81015; 82947; 83605; 83735; 83880; 84100; 84484; 85025; 85610; 85730; 86140; 87040; 87086; 88304; 93306; 99285; A9270-GY; J0330; J1100; J1650; J2185; J2405; J2543; J2704; J3010; J3370; J3475; J3490

== ENCOUNTER 2018-08-22 07:29 | Inpatient (IN) | payer MEDICARE, BC ==
[2018-08-22] MEDS ORDERED: NS 0.9% 1000 ML** 1,000 ML IV ONE (07:42)
[2018-08-22 08:42] LABS: Hematocrit 39 % (42-52); Mean Corpuscular HGB Conc 31 g/dl (31-36); Mean Corpuscular Hemoglobin 32 pg (27-31); Mean Corpuscular Volume 102 fL (80-94); Mean Platelet Volume 10.8 fL (7.4-10.4); Platelet Count 178 10^3/ul (150-450); Red Blood Count 3.79 10^6/ul (4.00-5.40); Red Cell Distribution Width 18 % (10.5-15); White Blood Count 10.4 10^3/ul (3.5-10.8)
[2018-08-22 08:53] LABS: INR 1.22 (0.77-1.02)
[2018-08-22 08:54] LABS: Urine Appearance Cloudy; Urine Bacteria Absent (Absent); Urine Bilirubin Negative (Negative); Urine Blood 3+ (Negative); Urine Color Yellow; Urine Glucose 1+(50 mg/dL) (Negative); Urine Ketones Trace (Negative); Urine Nitrite Negative (Negative); Urine Protein 1+(30 mg/dL) (Negative); Urine Red Blood Cell 3+(>10/hpf) (Absent); Urine Specific Gravity 1.017 (1.010-1.030); Urine Urobilinogen Negative (Negative); Urine White Blood Cell 3+(>20/hpf) (Absent)
[2018-08-22 09:01] LABS: Influenza A Molecular POSITIVE (Negative)
[2018-08-22 09:02] LABS: Troponin I 0.02 ng/mL (<0.04)
[2018-08-22 09:08] LABS: Albumin 3.8 g/dL (3.2-5.2); Albumin/Globulin Ratio 1.4 (1-3); BUN/Creatinine Ratio 22.4 (8-20); C Reactive Protein 86.26 mg/L (<8.01); Calcium 8.7 mg/dL (8.6-10.3); EGFR African American 79.1 (>60); EGFR Non-African American 65.4 (>60); Globulin 2.8 g/dL (2-4); Total Bilirubin 1.1 mg/dL (0.2-1.0); Total Protein 6.6 g/dL (6.4-8.9)
[2018-08-22 09:14] LABS: ABS Basophils 0.1 10^3/ul (0-0.2); ABS Eosinophils 0 10^3/ul (0-0.6); ABS Lymphocytes 1.2 10^3/ul (1.0-4.8); ABS Monocytes 0.7 10^3/ul (0-0.8); ABS Neutrophils 8.4 10^3/ul (1.5-7.7); ABS Nucleated RBC 0.1 10^3/ul; Eosinophil % 0 %; Lymphocyte % 11.6 %
[2018-08-22] MEDS ORDERED: cefTRIAXone(*) 1 GM in NS 0.9% 50 ML* 50 ML IVPB ONE (09:14)
[2018-08-22] MEDS ORDERED: Piperacillin/Tazobac ADVAN(*) 3.375 GM in NS 0.9% 100 ML* 100 ML IVPB ONE (09:20)
[2018-08-22] MEDS ORDERED: Levofloxacin 750 MG IVPREMIX(* 750 MG/150 ML BAG IVPB ONE (09:20)
[2018-08-22] MEDS ORDERED: Oseltamivir SUSP 75 MG dose* 75 MG/12.5 ML ORAL.SYRIN PO ONE (09:23)
[2018-08-22] MEDS ORDERED: NS 0.9% IV ONE (09:24)
[2018-08-22] MEDS ORDERED: Oseltamivir CAP* 75 MG CAP ONE (09:47)
[2018-08-22] MEDS ORDERED: Oseltamivir CAP* 75 MG CAP PO ONE (09:50)
--- NOTE | 2018-08-22 10:57 | ED ---
Sepsis HPI - HPI Summary HPI Summary: Patient is an 88-year-old male from [facility] who presents with respiratory distress. Staff state he was in respiratory distress upon wakening this morning. He arrives to the ED covered with urine with an increased work of breathing. He arrives on 2 L at 83%. Patient is speaking in full sentences , however is confused. We are unsure if this is at his baseline. History of interstitial lung disease. - History of Current Complaint Chief Complaint: EDGeneral Time Seen by Provider: 08/22/18 07:41 Stated Complaint: INJURY AFTER FALL PER EMS Hx Obtained From: Patient Onset/Duration: Started Hours Ago Timing: Constant Onset Severity: Severe Current Severity: Severe Pain Intensity: 0 Pain Scale Used: 0-10 Numeric Aggravating Symptom(s): Unknown Alleviating Factor(s): Unknown Associated Signs & Symptoms: Negative - Risk Factor(s) Pseudomonas Risk Factors: Negative Serious Bacterial Infection Risk Factors: Ill Contact - Additional Pertinent History Primary Care Physician: LUIS ANTONIO - Allergy/Home Medications Allergies/Adverse Reactions: Allergies Allergy/AdvReac Type Severity Reaction Status Date / Time No Known Allergies Allergy Verified 04/18/14 13:29 Home Medications: Home Medications Acetaminophen TAB* [Tylenol TAB*] 650 mg PO Q6H PRN 08/22/18 [History Confirmed 08/22/18] Amoxicillin PO (*) [Amoxicillin 500 MG CAP*] 2,000 mg PO ONCE PRN 08/22/18 [ History Confirmed 08/22/18] Atorvastatin* [Lipitor 10 MG*] 10 mg PO DAILY 08/22/18 [History Confirmed ] Benzonatate CAP* [Tessalon 100 MG CAP*] 100 mg PO Q8HR PRN 08/22/18 [History Confirmed 08/22/18] Cetirizine* [ZyrTEC 10 MG TAB*] 10 mg PO DAILY 08/22/18 [History Confirmed 08/22] Digoxin TAB* [Lanoxin TAB*] 0.125 mg PO DAILY 08/22/18 [History Confirmed ] Folic Acid TAB* [Folvite TAB*] 1 mg PO DAILY 08/22/18 [History Confirmed ] Lactobacillus Acidophilus* 2 tab PO BID 08/22/18 [History Confirmed 08/22/18] Melatonin 1 mg PO BEDTIME 08/22/18 [History Confirmed 08/22/18] Minerin Cream* [Eucerin Cream*] 1 applic TOPICAL BID 08/22/18 [History Confirmed 08/22/18] Multivitamins/Minerals TAB* [Theragran/minerals TAB*] 1 tab PO DAILY 08/22/18 [ History Confirmed 08/22/18] Propylene Glycol/Peg 400/Pf [Systane 0.3-0.4% Eye Drops] 1 drop BOTH EYES TID PRN 08/22/18 [History Confirmed 08/22/18] guaiFENesin ER TAB [Mucinex*] 600 mg PO BID PRN 08/22/18 [History Confirmed ] metFORMIN* [Glucophage 500 MG TAB *] 500 mg PO DAILY 08/22/18 [History Confirmed 08/22/18] PMH/Surg Hx/FS Hx/Imm Hx Previously Healthy: No Endocrine/Hematology History: Reports: Hx Anticoagulant Therapy - Eliquis, Hx Diabetes, Hx Thyroid Disease, Hx Anemia Cardiovascular History: Reports: Hx Atrial Fibrillation, Hx Congestive Heart Failure, Hx Coronary Artery Disease, Hx Hypertension, Hx Valvular Heart Disease - Mitral valve prolapse, Other Cardiovascular Problems/Disorders - EF 60%, mitral valve "issue" Denies: Hx Pacemaker/ICD GI History: Reports: Hx Gastroesophageal Reflux Disease History: Reports: Hx Benign Prostatic Hyperplasia, Hx Kidney Infection, Hx Kidney Stones, Other Problems/Disorders - Recent ureter stent removal with Dr. 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, Hx Contacts or Glasses, Hx Legally Blind - left eye Neurological History: Reports: Hx CVA - x2, Hx Dementia, Hx Transient Ischemic Attacks (TIA), Other Neuro Impairments/Disorders - Hemiplegia and hemiparesis Psychiatric History: Denies: Hx Panic Disorder - Surgical History Surgery Procedure, Year, and Place: rotator cuff repair 11/26, cataracts right eye, mitral heart valve, t&a, 2 kidney stones removed, prostate, attempted left cataract surgery resulting in blindness Hx Anesthesia Reactions: No - Immunization History Hx Pertussis Vaccination: No Immunizations Up to Date: Yes Infectious Disease History: No Infectious Disease History: Denies: Traveled Outside the [place] in Last 30 Days - Family History Known Family History: Positive: Cardiac Disease - Social History Occupation: Unemployed Lives: [facility] Alcohol Use: None Hx Substance Use: No Substance Use Type: Reports: None Hx Tobacco Use: No Smoking Status (MU): Never Smoked Tobacco Review of Systems Positive: Fever. Negative: Chills, Fatigue, Skin Diaphoresis Negative: Blurred Vision, Diplopia Negative: Sore Throat Negative: Palpitations, Chest Pain Positive: Cough. Negative: Shortness Of Breath Negative: Abdominal Pain, Vomiting, Diarrhea, Nausea Positive: see HPI Negative: Arthralgia, Myalgia Neurological: Negative All Other Systems Reviewed And Are Negative: Yes Physical Exam Triage Information Reviewed: Yes Vital Signs On Initial Exam: Initial Vitals Temp Pulse Resp BP Pulse Ox 100.5 F 110 26 137/69 83 08/22/18 07:34 08/22/18 07:34 08/22/18 07:34 08/22/18 07:34 08/22/18 07:34 Completion Of Physical Exam Limited Due To: Altered Mental Status - possibly at baseline Appearance: Positive: Ill-Appearing Skin: Positive: Warm, Skin Color Reflects Adequate Perfusion Eyes: Positive: EOMI, USHA, Conjunctiva Clear Neck: Positive: Supple, No Lymphadenopathy Respiratory/Lung Sounds: Positive: Rales, Rhonchi, Wheezes, Unable to speak in full sentences Cardiovascular: Positive: Pulses are Symmetrical in both Upper and Lower Extremities, Tachycardia. Negative: Leg Edema Left, Leg Edema Right Abdomen Description: Positive: Nontender, Soft Bowel Sounds: Positive: Present Musculoskeletal: Positive: Strength/ROM Intact Neurological: Positive: Speech Normal Psychiatric: Positive: Affect/Mood Appropriate AVPU Assessment: Alert Diagnostics - Vital Signs Vital Signs Temp Pulse Resp BP Pulse Ox 08/22/18 08:10 104 25 107/46 97 08/22/18 08:05 111 96 08/22/18 07:39 110 137/69 90 08/22/18 07:38 109 88 08/22/18 07:34 100.5 F 110 26 137/69 83 - Laboratory Lab Results: Lab Results 08/22/18 08/22/18 08/22/18 Range/Units 07:54 08:30 08:30 WBC 10.4 (3.5-10.8) 10^3/ul RBC 3.79 L (4.00-5.40) 10^6/ul Hgb 12.0 L (14.0-18.0) g/dl Hct 39 L (42-52) % MCV 102 H (80-94) fL MCH 32 H (27-31) pg MCHC 31 (31-36) g/dl RDW 18 H (10.5-15) % Plt Count 178 (150-450) 10^3/ul MPV 10.8 H (7.4-10.4) fL Neut % (Auto) 80.7 % Lymph % (Auto) 11.6 % [place] % (Auto) 6.9 % Eos % (Auto) 0 % Baso % (Auto) 0.8 % Absolute Neuts (auto) 8.4 H (1.5-7.7) 10^3/ul Absolute Lymphs (auto) 1.2 (1.0-4.8) 10^3/ul Absolute Monos (auto) 0.7 (0-0.8) 10^3/ul Absolute Eos (auto) 0 (0-0.6) 10^3/ul Absolute Basos (auto) 0.1 (0-0.2) 10^3/ul Absolute Nucleated RBC 0.1 10^3/ul Nucleated RBC % 1.0 INR (Anticoag Therapy) (0.77-1.02) Patient Temperature Not Reportable ABG pH 7.46 H (7.35-7.45) ABG pH (Temp Correct) Not Reportable ABG pCO2 31 L (35-45) mmHg ABG pCO2 (Temp Corrct Not Reportable ABG pO2 73 L (80-100) mmHg ABG pO2 (Temp Correct Not Reportable ABG HCO3 24.1 (19-31) mmol/L ABG O2 Saturation 98.0 (94.0-98.0) % ABG Base Excess -0.9 (-2.0-2.0) mmol/L Respiration Rate Not Reportable O2 Delivery Device 3 lpm Ventilator Type Not Reportable Vent Mode nasal cannula FiO2 Not Reportable Inspiratory Time Not Reportable PEEP Not Reportable Pressure Support Not Reportable Pressure Control Not Reportable EPAP Not Reportable IPAP Not Reportable BiPAP Not Reportable Sodium 133 L (135-145) mmol/L Potassium 4.0 (3.5-5.0) mmol/L Chloride 100 L (101-111) mmol/L Carbon Dioxide 24 (22-32) mmol/L Anion Gap 9 (2-11) mmol/L BUN 24 (6-24) mg/dL Creatinine 1.07 (0.67-1.17) mg/dL Est GFR ( Amer) 79.1 (>60) Est GFR (Non-Af Amer) 65.4 (>60) BUN/Creatinine Ratio 22.4 H (8-20) Glucose 218 H (70-100) mg/dL Lactic Acid (0.5-2.0) mmol/L Calcium 8.7 (8.6-10.3) mg/dL Total Bilirubin 1.10 H (0.2-1.0) mg/dL AST 43 H (13-39) U/L ALT 19 (7-52) U/L Alkaline Phosphatase 77 (34-104) U/L Troponin I 0.02 (<0.04) ng/mL C-Reactive Protein 86.26 H (<8.01) mg/L B-Natriuretic Peptide (<=100) pg/mL Total Protein 6.6 (6.4-8.9) g/dL Albumin 3.8 (3.2-5.2) g/dL Globulin 2.8 (2-4) g/dL Albumin/Globulin Ratio 1.4 (1-3) Urine Color Urine Appearance Urine pH (5-9) Ur Specific [place] (1.010-1.030) Urine Protein (Negative) Urine Ketones (Negative) Urine Blood (Negative) Urine Nitrate (Negative) Urine Bilirubin (Negative) Urine Urobilinogen (Negative) Ur Leukocyte Esterase (Negative) Urine WBC (Auto) (Absent) Urine RBC (Auto) (Absent) Urine Bacteria (Absent) Urine Glucose (Negative) Urine Ascorbic Acid (Negative) Influenza A (Rapid) (Negative) 08/22/18 08/22/18 08/22/18 Range/Units 08:30 08:30 08:30 WBC (3.5-10.8) 10^3/ul RBC (4.00-5.40) 10^6/ul Hgb (14.0-18.0) g/dl Hct (42-52) % MCV (80-94) fL MCH (27-31) pg MCHC (31-36) g/dl RDW (10.5-15) % Plt Count (150-450) 10^3/ul MPV (7.4-10.4) fL Neut % (Auto) % Lymph % (Auto) % [place] % (Auto) % Eos % (Auto) % Baso % (Auto) % Absolute Neuts (auto) (1.5-7.7) 10^3/ul Absolute Lymphs (auto) (1.0-4.8) 10^3/ul Absolute Monos (auto) (0-0.8) 10^3/ul Absolute Eos (auto) (0-0.6) 10^3/ul Absolute Basos (auto) (0-0.2) 10^3/ul Absolute Nucleated RBC 10^3/ul Nucleated RBC % INR (Anticoag Therapy) 1.22 H (0.77-1.02) Patient Temperature ABG pH (7.35-7.45) ABG pH (Temp Correct) ABG pCO2 (35-45) mmHg ABG pCO2 (Temp Corrct ABG pO2 (80-100) mmHg ABG pO2 (Temp Correct ABG HCO3 (19-31) mmol/L ABG O2 Saturation (94.0-98.0) % ABG Base Excess (-2.0-2.0) mmol/L Respiration Rate O2 Delivery Device Ventilator Type Vent Mode FiO2 Inspiratory Time PEEP Pressure Support Pressure Control EPAP IPAP BiPAP Sodium (135-145) mmol/L Potassium (3.5-5.0) mmol/L Chloride (101-111) mmol/L Carbon Dioxide (22-32) mmol/L Anion Gap (2-11) mmol/L BUN (6-24) mg/dL Creatinine (0.67-1.17) mg/dL Est GFR ( Amer) (>60) Est GFR (Non-Af Amer) (>60) BUN/Creatinine Ratio (8-20) Glucose (70-100) mg/dL Lactic Acid 2.8 H* (0.5-2.0) mmol/L Calcium (8.6-10.3) mg/dL Total Bilirubin (0.2-1.0) mg/dL AST (13-39) U/L ALT (7-52) U/L Alkaline Phosphatase (34-104) U/L Troponin I (<0.04) ng/mL C-Reactive Protein (<8.01) mg/L B-Natriuretic Peptide 557 H (<=100) pg/mL Total Protein (6.4-8.9) g/dL Albumin (3.2-5.2) g/dL Globulin (2-4) g/dL Albumin/Globulin Ratio (1-3) Urine Color Urine Appearance Urine pH (5-9) Ur Specific [place] (1.010-1.030) Urine Protein (Negative) Urine Ketones (Negative) Urine Blood (Negative) Urine Nitrate (Negative) Urine Bilirubin (Negative) Urine Urobilinogen (Negative) Ur Leukocyte Esterase (Negative) Urine WBC (Auto) (Absent) Urine RBC (Auto) (Absent) Urine Bacteria (Absent) Urine Glucose (Negative) Urine Ascorbic Acid (Negative) Influenza A (Rapid) (Negative) 08/22/18 08/22/18 Range/Units 08:33 08:55 WBC (3.5-10.8) 10^3/ul RBC (4.00-5.40) 10^6/ul Hgb (14.0-18.0) g/dl Hct (42-52) % MCV (80-94) fL MCH (27-31) pg MCHC (31-36) g/dl RDW (10.5-15) % Plt Count (150-450) 10^3/ul MPV (7.4-10.4) fL Neut % (Auto) % Lymph % (Auto) % [place] % (Auto) % Eos % (Auto) % Baso % (Auto) % Absolute Neuts (auto) (1.5-7.7) 10^3/ul Absolute Lymphs (auto) (1.0-4.8) 10^3/ul Absolute Monos (auto) (0-0.8) 10^3/ul Absolute Eos (auto) (0-0.6) 10^3/ul Absolute Basos (auto) (0-0.2) 10^3/ul Absolute Nucleated RBC 10^3/ul Nucleated RBC % INR (Anticoag Therapy) (0.77-1.02) Patient Temperature ABG pH (7.35-7.45) ABG pH (Temp Correct) ABG pCO2 (35-45) mmHg ABG pCO2 (Temp Corrct ABG pO2 (80-100) mmHg ABG pO2 (Temp Correct ABG HCO3 (19-31) mmol/L ABG O2 Saturation (94.0-98.0) % ABG Base Excess (-2.0-2.0) mmol/L Respiration Rate O2 Delivery Device Ventilator Type Vent Mode FiO2 Inspiratory Time PEEP Pressure Support Pressure Control EPAP IPAP BiPAP Sodium (135-145) mmol/L Potassium (3.5-5.0) mmol/L Chloride (101-111) mmol/L Carbon Dioxide (22-32) mmol/L Anion Gap (2-11) mmol/L BUN (6-24) mg/dL Creatinine (0.67-1.17) mg/dL Est GFR ( Amer) (>60) Est GFR (Non-Af Amer) (>60) BUN/Creatinine Ratio (8-20) Glucose (70-100) mg/dL Lactic Acid (0.5-2.0) mmol/L Calcium (8.6-10.3) mg/dL Total Bilirubin (0.2-1.0) mg/dL AST (13-39) U/L ALT (7-52) U/L Alkaline Phosphatase (34-104) U/L Troponin I (<0.04) ng/mL C-Reactive Protein (<8.01) mg/L B-Natriuretic Peptide (<=100) pg/mL Total Protein (6.4-8.9) g/dL Albumin (3.2-5.2) g/dL Globulin (2-4) g/dL Albumin/Globulin Ratio (1-3) Urine Color Yellow Urine Appearance Cloudy Urine pH 5.0 (5-9) Ur Specific [place] 1.017 (1.010-1.030) Urine Protein 1+(30 mg/dl) A (Negative) Urine Ketones Trace A (Negative) Urine Blood 3+ A (Negative) Urine Nitrate Negative (Negative) Urine Bilirubin Negative (Negative) Urine Urobilinogen Negative (Negative) Ur Leukocyte Esterase 2+ A (Negative) Urine WBC (Auto) 3+(>20/hpf) A (Absent) Urine RBC (Auto) 3+(>10/hpf) A (Absent) Urine Bacteria Absent (Absent) Urine Glucose 1+(50 mg/dl) A (Negative) Urine Ascorbic Acid * A (Negative) Influenza A (Rapid) Positive A (Negative) Result Diagrams: 08/22/18 08:30 08/22/18 08:30 Lab Statement: Any lab studies that have been ordered have been reviewed, and results considered in the medical decision making process. - Radiology No standard instances Radiology Interpretation Completed By: Radiologist - IMPRESSION: 1. RIGHT UPPER LOBE INFILTRATE MOST CONSISTENT WITH PNEUMONIA RECOMMEND FOLLOW-UP CHEST X-RAYS TO RESOLUTION. 2. POSSIBLE SMALL LEFT LUNG PULMONARY NODULE RECOMMEND A NONCONTRAST CT OF THE CHEST FOR FURTHER EVALUATION. Course/Dx - Course Course Of Treatment: During the course of treatment, the patient is noted on arrival to be 83% on 2 L. He was increased to 4 L and improved his O2 sat to 94 %. VS show 100.5, tachy at 110, respirations 26 and 83% on arrival. Septic protocol was initiated, however 1L ordered. Awaited BNP as patient has hx of respiratory distress, CHF and is DNR/SNI. Respiratory was called and an ABG was performed. Labs obtained which shows normal leuks, however hyponatremic with lactic acidosis. Elevated CRP and BNP. Zosyn and Levaquin ordered. Flu A + and Tamiflu 75mg was subsequently ordered. Chest xray shows RUL consolidation. UA obtained via catheter which shows UTI. Discussed with hospitalist, Dr. Robb who agrees to admit. He remains on 4L O2 and is currently stable. He was found on recheck to be 102.9 febrile and subsequently given Tylenol 650mg PO. - Differential Dx/Clinical Impression Differential Diagnosis/HQI/PQRI: Metabolic Disorder, Sepsis, Other - UTI, pneumonia, influenza, sepsis Provider Diagnosis: Pneumonia, Influenza A, UTI (urinary tract infection) - Provider Notifications Discussed Care Of Patient With: Ani Robb Instructed by Provider To: Admit As Inpatient - Critical Care Time Critical Care Time: 30-74 min Discharge - Sign-Out/Discharge Documenting (check all that apply): Patient Departure Patient Received Moderate/Deep Sedation with Procedure: No - Discharge Plan Condition: Fair Disposition: ADMITTED TO [facility] Referrals: Marisabel Holder DO [Primary Care Provider] - - Billing Disposition and Condition Condition: FAIR Disposition: Admitted to [facility]
[2018-08-22] MEDS ORDERED: Acetaminophen TAB* 325 MG PO ONE (10:59)
[2018-08-22] MEDS ORDERED: Acetaminophen TAB* 325 MG ONE (11:01)
[2018-08-22] MEDS ORDERED: Docusate CAP* 100 MG PO PRN (12:10)
[2018-08-22] MEDS ORDERED: guaiFENesin ER TAB 600 MG PO PRN (12:10)
[2018-08-22] MEDS ORDERED: Polyethyl Glycol/Propylene Gly OPHTH.SOLN BOTH EYES PRN (12:10)
[2018-08-22] MEDS ORDERED: Benzonatate CAP* 100 MG PO PRN (12:10)
[2018-08-22] MEDS ORDERED: Albuterol/Ipratropium NEB.SOL* Albuterol 2.5 MG/Ipratropium 0.5 MG 3 ML INH PRN (12:17)
[2018-08-22] MEDS ORDERED: Vancomycin(*) 1,000 MG in NS 0.9% 250 ML* 250 ML IVPB ONE (12:20)
[2018-08-22] MEDS ORDERED: Dextrose 50% Syringe 50 ML* 25 GM/50 ML SYRINGE IV PUSH PRN (12:22)
[2018-08-22] MEDS ORDERED: Furosemide IV* 10 MG/ML 2 ML VIAL (20 MG) IV ONE (12:27)
[2018-08-22] MEDS ORDERED: NS 0.9% 1000 ML** 1,000 ML IV SCH (12:30)
--- NOTE | 2018-08-22 12:48 | HP ---
ADMISSION HISTORY AND PHYSICAL: ADDENDUM: HOME MEDICATIONS: 1. Tessalon 100 mg p.o. q.8 hours as needed. 2. Tylenol 650 mg p.o. q.6 hours as needed. 3. Guaifenesin 600 mg p.o. b.i.d. as needed. 4. Docusate 100 mg p.o. b.i.d. as needed. 5. Zyrtec 10 mg p.o. daily. 6. Systane eyedrops 1 drop each eye 3 times a day as needed. 7. Amoxicillin 2000 mg p.o. as needed. 8. Gabapentin 100 mg p.o. b.i.d. 9. Minerin cream topical 3 times a day. 10. Eliquis 2.5 mg p.o. b.i.d. 11. Omeprazole 20 mg daily. 12. Multivitamin 1 tablet daily. 13. Metoprolol succinate XL 50 mg p.o. daily. 14. Probiotics 2 tabs p.o. b.i.d. 15. Metformin 500 mg daily. 16. Melatonin 1 mg p.o. at bedtime. 17. Synthroid 100 mcg p.o. daily. 18. Folic acid 1 mg p.o. daily. 19. Ferrous sulfate 325 mg p.o. daily. 20. Digoxin 0.125 mg daily. 21. B12 1000 mcg daily. 22. Atorvastatin 10 mg daily. 23. Ascorbic acid vitamin 500 mg p.o. daily. LAKISHA BRIGGS, TORO [id number]/[facility] #: [id number]
[2018-08-22] MEDS ORDERED: Zosyn per Pharmacy* NOTE FOLLOW UP SCH (13:00)
[2018-08-22] MEDS ORDERED: Furosemide IV* 10 MG/ML VIAL (40 MG) ONE (14:37)
[2018-08-22] MEDS: Albuterol/Ipratropium NEB.SOL* Albuterol 2.5 MG/Ipratropium 0.5 MG 3 ML INH SCH ×3 (14:45→23:25)
[2018-08-22] MEDS ORDERED: NS 0.9% 1000 ML** 1,000 ML IV.FLUID IV ONE (14:59)
--- NOTE | 2018-08-22 15:07 | CONSULT ---
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 Initiall noted to be hypoxic 83% on 2 L. He stated to them he was more SOB, but also noted to be confused by staff. Oxygen increased, temp noted 100.5, tachycardic 110, tachypneic 20-30s. Sepsis protocol ordered, given 1 L NS. Started on Empiric IV abx, found to be Influenza A positive, started on tamiflu. CXR initially demonstrated RUL consolidation+. He improved initially and admitted to medical floor. He was noted to be febrile 102.9 later. COMMUNICATIONS SCIENTIST called for respiratory distress. He was started on 12 Liter salter cannula, had increased work of breathing. then transitioned to NIV. He is now moved to ICU. lethargic but arousable, difficult to obtain further history. 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; recent admission 05/2018 for severe sepsis 2/2 to ascending cholangitis; recent treatment for pseudomonas endocarditis PSHx: rotator cuff repair 11/2016, MVR, renal stones, Family History: cardiac diet Social History: Alcohol-no, Smoking-no, Drug use-no; lives in [place] Allergies: Allergies Allergy/AdvReac Type Severity Reaction Status Date / Time No Known Allergies Allergy Verified 04/18/14 13:29 Home Medications: RX: Ascorbic Acid TAB* [Vitamin C TAB*] 500 mg PO DAILY #30 tab 08/25/17 [Rx Confirmed 08/22/18] RX: Cyanocobalamin TAB* [Vitamin B12 TAB*] 1,000 mcg PO DAILY 04/27/18 [History Confirmed 08/22/18] RX: Ferrous Sulfate TAB* 325 mg PO DAILY 04/27/18 [History Confirmed 08/22/18] RX: Apixaban* [Eliquis*] 2.5 mg PO BID tab 05/09/18 [Rx Confirmed 08/22/18] RX: Docusate CAP* [Colace Cap*] 100 mg PO BID PRN cap 05/09/18 [Rx Confirmed ] RX: Gabapentin CAP(*) [Neurontin 100 mg CAP(*)] 100 mg PO BID cap 05/09/18 [Rx Confirmed 08/22/18] RX: Metoprolol Succinate XL TAB* [Toprol XL TAB*] 50 mg PO DAILY tab.xl [Rx Confirmed 08/22/18] RX: Omeprazole CAP (NF) [Prilosec CAP* 20 MG] 20 mg PO DAILY@0600 cap [Rx Confirmed 08/22/18] RX: Levothyroxine TAB* [Synthroid 100 MCG TAB*] 100 mcg PO QAM 05/25/18 [ History Confirmed 08/22/18] Acetaminophen TAB* [Tylenol TAB*] 650 mg PO Q6H PRN 08/22/18 [History Confirmed 08/22/18] Amoxicillin PO (*) [Amoxicillin 500 MG CAP*] 2,000 mg PO ONCE PRN 08/22/18 [ History Confirmed 08/22/18] Benzonatate CAP* [Tessalon 100 MG CAP*] 100 mg PO Q8HR PRN 08/22/18 [History Confirmed 08/22/18] Cetirizine* [ZyrTEC 10 MG TAB*] 10 mg PO DAILY 08/22/18 [History Confirmed 08/22] Folic Acid TAB* [Folvite TAB*] 1 mg PO DAILY 08/22/18 [History Confirmed ] Multivitamins/Minerals TAB* [Theragran/minerals TAB*] 1 tab PO DAILY 08/22/18 [ History Confirmed 08/22/18] Propylene Glycol/Peg 400/Pf [Systane 0.3-0.4% Eye Drops] 1 drop BOTH EYES TID PRN 08/22/18 [History Confirmed 08/22/18] RX: Atorvastatin* [Lipitor 10 MG*] 10 mg PO DAILY 08/22/18 [History Confirmed ] RX: Digoxin TAB* [Lanoxin TAB*] 0.125 mg PO DAILY 08/22/18 [History Confirmed ] RX: Lactobacillus Acidophilus* 2 tab PO BID 08/22/18 [History Confirmed 08/22/18 ] RX: Melatonin 1 mg PO BEDTIME 08/22/18 [History Confirmed 08/22/18] RX: Minerin Cream* [Eucerin Cream*] 1 applic TOPICAL BID 08/22/18 [History Confirmed 08/22/18] RX: metFORMIN* [Glucophage 500 MG TAB *] 500 mg PO DAILY 08/22/18 [History Confirmed 08/22/18] guaiFENesin ER TAB [Mucinex*] 600 mg PO BID PRN 08/22/18 [History Confirmed ] Tele: sinus tachycardia Vitals: Vital Signs Temp 100.1 F 08/22/18 15:00 Pulse 124 08/22/18 15:27 Resp 40 08/22/18 15:27 BP 105/39 08/22/18 15:00 Pulse Ox 90 08/22/18 15:27 Intake & Output 08/21/18 08/22/18 08/22/18 18:59 06:59 18:59 Intake Total 1250 Balance 1250 Weight 58.967 kg Intake: IV Fluids 1250 O2/Vent: NIV 18/6 60% Infusions: heplock Current Medications: Acetaminophen (Tylenol Tab*) 650 mg PO Q6H PRN PRN Reason: FEVER/PAIN Albuterol/Ipratropium (Duoneb (Albuterol 2.5 Mg/Ipratropium 0.5 Mg)) 1 neb INH [id number] AWAKE [facility] Last Admin: 08/22/18 14:45 Dose: 1 neb Apixaban (Eliquis*) 2.5 mg PO BID [facility] Ascorbic Acid (Vitamin C Tab*) 500 mg PO DAILY [facility] Atorvastatin Calcium (Lipitor*) 10 mg PO DAILY [facility] Benzonatate (Tessalon Cap*) 100 mg PO Q8HR PRN PRN Reason: COUGH Cyanocobalamin (Vitamin B12 Tab*) 1,000 mcg PO DAILY [facility] Dextrose (D50w Syringe 50 Ml*) 12.5 gm IV PUSH .FOR FS < 60 - SS PRN PRN Reason: FS < 60 Digoxin (Lanoxin Tab*) 0.125 mg PO DAILY [facility] Docusate Sodium (Colace Cap*) 100 mg PO BID PRN PRN Reason: CONSTIPATION Ferrous Sulfate (Ferrous Sulfate Tab*) 325 mg PO DAILY [facility] Folic Acid (Folvite Tab*) 1 mg PO DAILY [facility] Gabapentin (Neurontin Cap(*)) 100 mg PO BID [facility] Guaifenesin (Mucinex*) 600 mg PO BID [facility] Vancomycin HCl / Sodium (Chloride) 250 mls @ 166.667 mls/hr IVPB .CONTINUE PROTOCOL [facility]; Protocol Ciprofloxacin/Dextrose (Cipro 400 Mg Ivpremix(*)) 400 mg in 200 mls @ 200 mls/ hr IVPB 1000,2100 [facility] Piperacillin Sod/Tazobactam (Sod 3.375 gm/ Sodium Chloride) 100 mls @ 25 mls/ hr IVPB Q8H [facility] Insulin Human Lispro (Humalog*) 0 units SUBCUT ACHS [facility]; Protocol Last Admin: 08/22/18 15:26 Dose: Not Given Lactobacillus Rhamnosus (Lactobacillus Acidophilus*) 2 tab PO BID [facility] Levothyroxine Sodium (Synthroid Tab*) 100 mcg PO 0600 [facility] Melatonin (Melatonin) 3 mg PO BEDTIME [facility] Oseltamivir Phosphate (Tamiflu Cap*) 30 mg PO BID [facility] Stop: 08/27/18 09:01 Pantoprazole Sodium (Protonix Tab*) 40 mg PO DAILY@0600 [facility] Pharmacy Consult (Zosyn Per Pharmacy*) 1 note FOLLOW UP .ZOSYN PER PHARMACY [facility] Polyethyl Glycol/Propylene Glycol (Lubricant Eye Drops) 1 drop BOTH EYES TID PRN PRN Reason: DRY EYE Physical Exam: Constitutional: lethargic, arousable though, in resp distress Head: normocephalic, atraumatic Eyes: no pallor, no icterus ENT: moist mucous membranes Neck: soft, supple, no jvd, no stridor CVS: tachycardic, regular, no murmur Respiratory: bilateral air entry, diffuse rhales++ bilaterally, no wheeze, no rhonchi, +acc muscle use Abdomen: soft, nontender, nondistended, BS+ Ext: pulses+, warm, no edema Skin: intact, warm Neuro: lethargic, moving ext, unable to assess orientation Labs: Laboratory Results - last 24 hr 08/22/18 08/22/18 08/22/18 07:54 08:30 08:30 WBC 10.4 RBC 3.79 L Hgb 12.0 L Hct 39 L MCV 102 H MCH 32 H MCHC 31 RDW 18 H Plt Count 178 MPV 10.8 H Neut % (Auto) 80.7 Lymph % (Auto) 11.6 [place] % (Auto) 6.9 Eos % (Auto) 0 Baso % (Auto) 0.8 Absolute Neuts (auto) 8.4 H Absolute Lymphs (auto) 1.2 Absolute Monos (auto) 0.7 Absolute Eos (auto) 0 Absolute Basos (auto) 0.1 Absolute Nucleated RBC 0.1 Nucleated RBC % 1.0 INR (Anticoag Therapy) Patient Temperature Not Reportable ABG pH 7.46 H ABG pH (Temp Correct) Not Reportable ABG pCO2 31 L ABG pCO2 (Temp Corrct Not Reportable ABG pO2 73 L ABG pO2 (Temp Correct Not Reportable ABG HCO3 24.1 ABG O2 Saturation 98.0 ABG Base Excess -0.9 Respiration Rate Not Reportable O2 Delivery Device 3 lpm Ventilator Type Not Reportable Vent Mode nasal cannula FiO2 Not Reportable Inspiratory Time Not Reportable PEEP Not Reportable Pressure Support Not Reportable Pressure Control Not Reportable EPAP Not Reportable IPAP Not Reportable BiPAP Not Reportable Sodium 133 L Potassium 4.0 Chloride 100 L Carbon Dioxide 24 Anion Gap 9 BUN 24 Creatinine 1.07 Est GFR ( Amer) 79.1 Est GFR (Non-Af Amer) 65.4 BUN/Creatinine Ratio 22.4 H Glucose 218 H POC Glucose (mg/dL) Lactic Acid Calcium 8.7 Total Bilirubin 1.10 H AST 43 H ALT 19 Alkaline Phosphatase 77 Troponin I 0.02 C-Reactive Protein 86.26 H B-Natriuretic Peptide Total Protein 6.6 Albumin 3.8 Globulin 2.8 Albumin/Globulin Ratio 1.4 Urine Color Urine Appearance Urine pH Ur Specific [place] Urine Protein Urine Ketones Urine Blood Urine Nitrate Urine Bilirubin Urine Urobilinogen Ur Leukocyte Esterase Urine WBC (Auto) Urine RBC (Auto) Urine Bacteria Urine Glucose Urine Ascorbic Acid Influenza A (Rapid) 08/22/18 08/22/18 08/22/18 08:30 08:30 08:30 WBC RBC Hgb Hct MCV MCH MCHC RDW Plt Count MPV Neut % (Auto) Lymph % (Auto) [place] % (Auto) Eos % (Auto) Baso % (Auto) Absolute Neuts (auto) Absolute Lymphs (auto) Absolute Monos (auto) Absolute Eos (auto) Absolute Basos (auto) Absolute Nucleated RBC Nucleated RBC % INR (Anticoag Therapy) 1.22 H Patient Temperature ABG pH ABG pH (Temp Correct) ABG pCO2 ABG pCO2 (Temp Corrct ABG pO2 ABG pO2 (Temp Correct ABG HCO3 ABG O2 Saturation ABG Base Excess Respiration Rate O2 Delivery Device Ventilator Type Vent Mode FiO2 Inspiratory Time PEEP Pressure Support Pressure Control EPAP IPAP BiPAP Sodium Potassium Chloride Carbon Dioxide Anion Gap BUN Creatinine Est GFR ( Amer) Est GFR (Non-Af Amer) BUN/Creatinine Ratio Glucose POC Glucose (mg/dL) Lactic Acid 2.8 H* Calcium Total Bilirubin AST ALT Alkaline Phosphatase Troponin I C-Reactive Protein B-Natriuretic Peptide 557 H Total Protein Albumin Globulin Albumin/Globulin Ratio Urine Color Urine Appearance Urine pH Ur Specific [place] Urine Protein Urine Ketones Urine Blood Urine Nitrate Urine Bilirubin Urine Urobilinogen Ur Leukocyte Esterase Urine WBC (Auto) Urine RBC (Auto) Urine Bacteria Urine Glucose Urine Ascorbic Acid Influenza A (Rapid) 08/22/18 08/22/18 08/22/18 08:33 08:55 13:42 WBC RBC Hgb Hct MCV MCH MCHC RDW Plt Count MPV Neut % (Auto) Lymph % (Auto) [place] % (Auto) Eos % (Auto) Baso % (Auto) Absolute Neuts (auto) Absolute Lymphs (auto) Absolute Monos (auto) Absolute Eos (auto) Absolute Basos (auto) Absolute Nucleated RBC Nucleated RBC % INR (Anticoag Therapy) Patient Temperature ABG pH ABG pH (Temp Correct) ABG pCO2 ABG pCO2 (Temp Corrct ABG pO2 ABG pO2 (Temp Correct ABG HCO3 ABG O2 Saturation ABG Base Excess Respiration Rate O2 Delivery Device Ventilator Type Vent Mode FiO2 Inspiratory Time PEEP Pressure Support Pressure Control EPAP IPAP BiPAP Sodium Potassium Chloride Carbon Dioxide Anion Gap BUN Creatinine Est GFR ( Amer) Est GFR (Non-Af Amer) BUN/Creatinine Ratio Glucose POC Glucose (mg/dL) 216 H Lactic Acid Calcium Total Bilirubin AST ALT Alkaline Phosphatase Troponin I C-Reactive Protein B-Natriuretic Peptide Total Protein Albumin Globulin Albumin/Globulin Ratio Urine Color Yellow Urine Appearance Cloudy Urine pH 5.0 Ur Specific [place] 1.017 Urine Protein 1+(30 mg/dl) A Urine Ketones Trace A Urine Blood 3+ A Urine Nitrate Negative Urine Bilirubin Negative Urine Urobilinogen Negative Ur Leukocyte Esterase 2+ A Urine WBC (Auto) 3+(>20/hpf) A Urine RBC (Auto) 3+(>10/hpf) A Urine Bacteria Absent Urine Glucose 1+(50 mg/dl) A Urine Ascorbic Acid * A Influenza A (Rapid) Positive A 08/22/18 14:44 WBC RBC Hgb Hct MCV MCH MCHC RDW Plt Count MPV Neut % (Auto) Lymph % (Auto) [place] % (Auto) Eos % (Auto) Baso % (Auto) Absolute Neuts (auto) Absolute Lymphs (auto) Absolute Monos (auto) Absolute Eos (auto) Absolute Basos (auto) Absolute Nucleated RBC Nucleated RBC % INR (Anticoag Therapy) Patient Temperature ABG pH 7.21 L ABG pH (Temp Correct) ABG pCO2 58 H ABG pCO2 (Temp Corrct ABG pO2 60 L ABG pO2 (Temp Correct ABG HCO3 20.3 ABG O2 Saturation 88.8 L ABG Base Excess -5.5 L Respiration Rate O2 Delivery Device Ventilator Type Vent Mode FiO2 Inspiratory Time PEEP Pressure Support Pressure Control EPAP IPAP BiPAP Sodium Potassium Chloride Carbon Dioxide Anion Gap BUN Creatinine Est GFR ( Amer) Est GFR (Non-Af Amer) BUN/Creatinine Ratio Glucose POC Glucose (mg/dL) Lactic Acid Calcium Total Bilirubin AST ALT Alkaline Phosphatase Troponin I C-Reactive Protein B-Natriuretic Peptide Total Protein Albumin Globulin Albumin/Globulin Ratio Urine Color Urine Appearance Urine pH Ur Specific [place] Urine Protein Urine Ketones Urine Blood Urine Nitrate Urine Bilirubin Urine Urobilinogen Ur Leukocyte Esterase Urine WBC (Auto) Urine RBC (Auto) Urine Bacteria Urine Glucose Urine Ascorbic Acid Influenza A (Rapid) Imaging: cxr 08/22 - RUL consolidation cxr Assessment: 88y M w/pmhx of Afib on eliquis, DM, CAD, s/p bioMVR with mild-mod MR, LV diastolic dysfxn with mod RV dysfxn, GERD, BPH, hypothyroidism, h/o ureteral stent, h/o CVA, Dementia, 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 Initiall noted to be hypoxic 83% on 2 L. He stated to them he was more SOB, but also noted to be confused by staff. Oxygen increased, temp noted 100.5, tachycardic 110, tachypneic 20-30s. Sepsis protocol ordered, given 1 L NS. Started on Empiric IV abx, found to be Influenza A positive, started on tamiflu. CXR initially demonstrated RUL consolidation+. He improved initially and admitted to medical floor. He was noted to be febrile 102.9 later. 08/22- admitted for hypoxia, pneumonia, sepsis tx started, now in pulm edema -Acute Hypercapneic and Hypoxic respiratory failure -Severe Sepsis 2/2 -RUL pneumonia 2/2 to Influenza A+ -Pulmonary Edema -Acute on chronic decompensated LV diastolic heart failure -Shock, unspecified -Delirium 2/2 to sepsis Afib Past Pseudomonas endocarditis, completed tx Plan: Neuro- intermittent confusion/delirium, multifactorial 2/2 to sepsis/resp failure now. -asp prec, delirium prec CVS- BP was stable; remains tachycardic; s/p sepsis bolus -now in decompensated diastolic heart failure with pulmonary edema on cxr -stop IVF -start carey for hypotension -IV lasix 40mg IV x1 once BP improved -IV abx for sepsis -cont dig for rate control for Afib -cont apixiban for Afib AC Resp- hypoxic and hypercapniec, initially from RUL pneumonia; now CXR consistent with worsened bilateral infiltrates, examination with bilateral rhales+, likely from pulmonary edema/fluid overload -IV lasix once BP allows -NIV continued for resp support; noted DNR/DNI; critically ill; attempted contact with Son Uzair to update and review GOC -ABG at 6pm -CXR tomorrow ID- tmax 102. WBC 10-11. -CXR RUL consolidation+; repat with Bilateral pulm congestion -Influenza A+; start Tamiflu 30mg PO BID (day#1) -given recent hospitalization, started Empiric HCAP therapy also given critical illness; check sputum culture; started zosyn (day#1), vanco (day#1) -d/c cipro; previous pseudomonas was sensitive to piperacillin; so continue zosyn for now; pending blood cx GI- NPO. aspiration prec. GI proph Renal- Cr okay, CrCL 55, renal dosing meds -K okay -elevated LA from resp distress/CHF exacc +/- sepsis -hold further IVF -pressor support -IV lasix 40mg x1 now Heme- hg stable, plt stable -anemia; cont b12/folate -cont apixiban for Afib AC Endo- Maintain BG<200, insulin protocol as needed. -cont synthroid for hypothryoidism Musculsk- pressure ulcer prophylaxis. Bedrest. Wounds- none Nutrition- NPO due to resp distress DVT prophylaxis: apixiba, SCD GI prophylaxis: ppi Central Line: no Arterial Line: no [place] Cathetor: yes Disposition: Patient requires Critical Care/ICU for acute hypoxic/hypercap resp failure, pneumonia, pulmonary edema, acute on chr decompensated heart failure exaccerbation Patient Clinical Status: unstable, critical Code Status: DNR/DNI attempted contact with Son Uzair to update and review GOC. Called other Son Gabriel , discussed status, he would come by later today from [place]. Total Critical Care time is 50 minutes, excluding procedures/teaching Stefan Ash MD Percussion Tuner (Electronically Signed)
--- NOTE | 2018-08-22 15:12 | HP ---
ADMISSION HISTORY AND PHYSICAL: DATE OF ADMISSION: 08/22/18 The patient is a resident of [facility]. PRIMARY CARE PROVIDER: Attending at [facility]. ATTENDING FOR THIS ADMISSION: Dr. Ani Coreas.* (DICTATED BY LAKISHA BRIGGS NP) CHIEF COMPLAINT: Respiratory distress. HISTORY OF PRESENT ILLNESS: This is a very pleasant 88-year-old male patient known to us from previous admissions, who was residing at [facility] , when staff noted this morning when the patient awoke that he was in respiratory distress. The patient's work of breathing was increased. He was on 2 L nasal cannula with satting at only 83%. He was having some periods of confusion. He does have some history of COPD; however, he is also febrile and continued to be hypoxic. The patient's imaging in the ED notes him to have a right upper lobe infiltrate, most consistent with pneumonia. He also has a positive UTI and is screened positive for influenza A. He is also appearing mildly septic. For these reasons, we were asked to evaluate the patient for admission, for which he meets inpatient criteria. PAST MEDICAL HISTORY: Significant for: 1. Diabetes mellitus. 2. Chronic atrial fibrillation, on anticoagulation. 3. Recent Pseudomonas endocarditis, was on long-term cefepime. 4. History of hydronephrosis and nephrolithiasis with ureteral stenting. 5. Coronary artery disease. 6. Hypothyroidism. 7. BPH. 8. Pancreatic mass. 9. Chronic congestive heart failure. 10. Vitamin B12 deficiency. 11. Recent acute cholecystitis. 12. The patient has mitral valve prolapse and valvular heart disease. PAST SURGICAL HISTORY: Significant for: 1. Rotator cuff repair in 2017. 2. Cataract surgery. 3. 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 4. Recent laparoscopic cholecystectomy. 5. The patient did have mitral valve replacement surgery. 6. History of CABG. HOME MEDICATIONS: 1. Tessalon 100 mg p.o. q.8 hours as needed. 2. Tylenol 650 mg p.o. q.6 hours as needed. 3. Guaifenesin 600 mg p.o. b.i.d. as needed. 4. Docusate 100 mg p.o. b.i.d. as needed. 5. Zyrtec 10 mg p.o. daily. 6. Systane eyedrops 1 drop each eye 3 times a day as needed. 7. Amoxicillin 2000 mg p.o. as needed. 8. Gabapentin 100 mg p.o. b.i.d. 9. Minerin cream topical 3 times a day. 10. Eliquis 2.5 mg p.o. b.i.d. 11. Omeprazole 20 mg daily. 12. Multivitamin 1 tablet daily. 13. Metoprolol succinate XL 50 mg p.o. daily. 14. Probiotics 2 tabs p.o. b.i.d. 15. Metformin 500 mg daily. 16. Melatonin 1 mg p.o. at bedtime. 17. Synthroid 100 mcg p.o. daily. 18. Folic acid 1 mg p.o. daily. 19. Ferrous sulfate 325 mg p.o. daily. 20. Digoxin 0.125 mg daily. 21. B12 1000 mcg daily. 22. Atorvastatin 10 mg daily. 23. Ascorbic acid vitamin 500 mg p.o. daily. ALLERGIES: The patient has no known drug allergies. FAMILY HISTORY: Has known cardiac disease in both parents who are both . SOCIAL HISTORY: The patient denies any history of smoking. He denies any history of drug use or alcohol use. The patient currently is living at [facility]. His son, Renaldo Concepcion, is his healthcare proxy. CODE STATUS: The patient is a DNR/DNI. REVIEW OF SYSTEMS: The patient is a poor historian at this time secondary to condition, but he is able to answer questions appropriately. He is stating that he is having some respiratory trouble and some coughing. He denies any chills. Denies any chest pains. No nausea. No vomiting. No urinary complaints. No further constitutional complaints. PHYSICAL EXAMINATION GENERAL: He appears to be an older gentleman, appears fatigued and in a mild amount of distress. VITAL SIGNS: Currently, blood pressure 107/46, heart rate 104, respiratory rate 25, O2 saturation 96% on 3 L nasal cannula. HEENT: The patient is atraumatic, normocephalic. PERRLA with nonicteric sclerae. He is legally blind in the left eye. He is wearing eyeglasses. His oral mucosa is dry. Lips are very dry. Dentition is intact. Tongue is midline. NECK: Supple, nontender. No JVD noted. No carotid bruit auscultated. LUNGS: Very coarse bilaterally to auscultation with bilateral inspiratory and expiratory wheezing. Scattered rhonchi and rales at the bases. CARDIOVASCULAR: S1 and S2 present. Currently tachycardic with the rate in the low 100s. Rate and rhythm are regular. ABDOMEN: Soft, nontender, and nondistended. He has positive bowel sounds in all 4 quadrants. He has well-healed approximated surgical wounds from his recent laparoscopic procedure that are clean, dry, and intact. GENITOURINARY: Deferred. MUSCULOSKELETAL: There is no clubbing, no cyanosis. He has no pedal edema. He has +2 distal pulses palpable. NEUROLOGIC: He is confused at baseline, but otherwise not exhibiting any further deficits. PSYCHIATRIC: Again, confused but is entirely appropriate. DIAGNOSTIC STUDIES/LABORATORY DATA: WBCs 10.4, RBCs 3.79, hemoglobin 12.0, hematocrit 39, MCV 102, MCH 32, platelets 178. Sodium 133, potassium 4.0, chloride 100, CO2 of 24. BUN 24, creatinine 1.07. GFR 65.4. Glucose 218. Lactic acid 2.8. Calcium 8.7. Bilirubin 1.10. AST 43, ALT 19, alk phos 77. Troponin is negative at 0.02. CRP is 86.26. BNP 557. Protein 6.6, albumin 3.8. Globulin 2.8. Blood gas shows a pH of 7.46, CO2 of 31, pO2 of 73, bicarb 24.1, base excess of negative 0.9. Coags: INR is 1.22. Urinalysis shows yellow cloudy urine, pH of 5.0, specific gravity 1.017, 1+ protein, trace ketones, 3+ blood, negative nitrites, negative bilirubin, negative urobilinogen , 2+ leukocyte esterase, 3+ wbc's, 3+ rbc's, absent bacteria, 1+ glucose, and positive for urine ascorbic acid. Serology: Influenza A screening is positive. Imagin. Chest x-ray dated 08/22/18 shows a right upper lobe infiltrate most consistent with pneumonia. 2. Possible small left lung pulmonary nodule, recommended noncontrast CT of the chest for further evaluation. IMPRESSION: Mr. Johnston is an 88-year-old male with a very complex past medical history, who now presents from his current [facility] residence with sepsis, pneumonia, influenza, and respiratory distress. PLAN: The patient will be admitted to inpatient service. DIAGNOSES: 1. Pneumonia. Being that the patient has had positive blood cultures since April, also had a very complicated course of endocarditis at the end of last year and has been hospitalized for quite some time and in nursing homes since, we will cover the patient for a hospital-acquired pneumonia. He has already received Levaquin and Zosyn in the emergency department. I will place him on vancomycin 1 g now and then followed by pharmacy with goal troughs of 15 to 20. Zosyn, he has already received first dose in the ED, and then dosing per pharmacy. This will be continued. We will also start the patient on Cipro b.i.d. We will continue to follow his blood cultures and obtain a sputum culture if possible. Pulmonary toilet with nebulizer treatments. He will be on DuoNeb q.4 hours with flutter valve. We will also place the patient on Mucinex 600 mg b.i.d. 2. Influenza A positive. The patient has received first dose of Tamiflu. This will be continued to complete his course. 3. Yany-fr-euirdhny sepsis with a lactic acid of 2.8. The patient has already received fluid bolus, should be 1700 mL bolus in total, which is almost complete. We will recheck his lactic acid and again continue to follow blood cultures during this admission. 4. History of chronic heart failure. His BNP is 583 at this admission. It was 773 in May. He does have a noted reduced ejection fraction in the past. His most recent echocardiogram dated 05/25/18 shows that he had some improvement in his EF at 60% to 65%. He had some postsurgical hypokinesis, some septal flattening in the interventricular septum consistent with right ventricular volume or pressure overload. He had abnormal left ventricular diastolic function and left ventricular diastolic filling pattern is consistent with pseudonormalization. His bioprosthetic mitral valve was also noted present. At that time, he had no obvious vegetations, and again the LV function appears to have improved from 45% to approximately 60% at that time. If the patient continues to be fluid overloaded after receiving IV fluids for sepsis, we may have to recheck an echocardiogram. 5. For his fevers, the patient will receive Tylenol as needed. He has already received 1 dose in the ED. 6. Altered mental status. Suspect this is secondary to metabolic encephalopathy. Because of his multiple infections and fever, we will continue to provide supportive care. 7. Diabetes. The patient will be placed on Accu-Cheks a.c. and h.s. , Lispro sliding scale, and consistent carbohydrate diet. 8. History of gastroesophageal reflux disease. We will continue him on a PPI. 9. History of atrial fibrillation. The patient is on metoprolol and Eliquis. These will be continued. 10. For his history of hypothyroidism, we will continue his Synthroid. 11. Urinary tract infection. It is unclear at this time because of the patient 's change in mental status if he actually has urinary complaints. His urine does appear to be infected. The Cipro should cover is infection as well as for his chest or any other bacteremia, Cipro will be initiated and continued. 12. For DVT prophylaxis, the patient screening is high risk. However, he is on Eliquis. This will be continued. 13. Code status. As noted above, DNR. TIME SPENT: Approximately 65 minutes interviewing the patient, reviewing previous admissions, coordinating plan of care with pharmacy regarding antibiotic selection. The rest of the patient's course will be determined by further diagnostics, laboratories, and any other input from other providers as warranted during this admission. This plan of care has been discussed with Dr. Ani Coreas, who is in agreement with the plan of care. LAKISHA BRIGGS NP [id number]/CPS #: [id number]/CPS #: [id number] ROSELIA
--- NOTE | 2018-08-22 15:12 | PN ---
Hospitalist Progress Note Date of Service: 08/22/18 HOSPITALIST ADDENDUM - CAT NOTE CAT called for patient in acute respiratory distress. Just admitted with COPD exacerbation, Flu, pneumonia. On arrival to floor he was on respiratory distress and CAT was called. Tachycardic, tachypneic, SO2 in the 80s on 4 liters - up to 95 on 10 liters, but with significant work of breathing. Transferred to ICU for BiPAP. Critical care consult requested with Dr Ash.
[2018-08-22] MEDS: Insulin LISPRO* 1 UNITS UNIT SUBCUT SCH ×3 (15:26→22:12)
[2018-08-22 15:49] LABS: Albumin 3.7 g/dL (3.2-5.2); Albumin/Globulin Ratio 1.3 (1-3); BUN/Creatinine Ratio 22.2 (8-20); EGFR African American 71.4 (>60); Globulin 2.8 g/dL (2-4); Potassium 3.9 mmol/L (3.5-5.0); Total Bilirubin 1.4 mg/dL (0.2-1.0); Total Protein 6.5 g/dL (6.4-8.9)
[2018-08-22] MEDS ORDERED: Furosemide IV* 10 MG/ML VIAL (40 MG) IV ONE (15:56)
[2018-08-22] MEDS ORDERED: Phenylephrine 10 MG/ML VIAL* 1 ML VIAL ONE (16:19)
[2018-08-22] MEDS: ZOSYN 3.375 GM Q8H per EXTENDED INFUSION IVPB SCH ×4 (16:24→23:04)
[2018-08-22] MEDS ORDERED: Vancomycin per Pharmacy* NOTE FOLLOW UP PRN (16:35)
[2018-08-22] MEDS: Phenylephrine 10 MG/ML VIAL* 50 MG in NS 0.9% 250 ML* 245 ML IV SCH ×2 (16:39→22:11)
[2018-08-22 16:49] LABS: TSH (Thyroid Stimulating Horm) 3.41 mcIU/mL (0.34-5.60)
[2018-08-22 16:53] LABS: Urine Appearance Cloudy; Urine Bacteria Absent (Absent); Urine Bilirubin Negative (Negative); Urine Blood 3+ (Negative); Urine Color Red; Urine Glucose Negative (Negative); Urine Ketones Negative (Negative); Urine Nitrite Negative (Negative); Urine Protein 2+(100 mg/dL) (Negative); Urine Red Blood Cell 3+(>10/hpf) (Absent); Urine Urobilinogen Negative (Negative); Urine White Blood Cell 3+(>20/hpf) (Absent)
--- NOTE | 2018-08-22 18:34 | PN ---
Progress Note - Progress Note Date of Service: 08/22/18 Note: Central Line Procedure Note Indication: venous access, hemodynamic monitoring Diagnosis: shock (unspecified), acute hypercapneic and hypoxic respiratory failure, pneumonia, influenza A, pulmonary edema Performed by: Stefan Ash MD Consent: [facility] Protocol: Time-out was performed and the correct patient and site were verified - Prior labs/history was reviewed prior to procedure - Full sterile precautions with chlorhexidine/full drapes/gowns/gloves utilized - Left Internal Jugular Vein visualized with ultrasound - Vessel accessed under ultrasound guidance with return of nonpulsatile blood. A guidewire was passed into vessel and confirmed in vessel with ultrasound. 1 attempt was made to access vessel. Vessel was dilated and cathetor was passed over wire into vessel. All ports demonstrated good blood return and flushed. Catheter was sutured to site and dressing applied. Adequate hemostasis was achieved EBL <5 cc No immediate complications noted, patient tolerated procedure well. Post Procedure CXR: Pending Stefan Ash MD Film Sound Engineer (Electronically Signed
[2018-08-22] MEDS ORDERED: Norepinephrine 16MCG/ML IVPRE* 4,000 MCG/250 ML BAG IV SCH (19:00)
[2018-08-22] MEDS: Acetaminophen IV 1GM/100ML * 100 ML IVPB SCH (20:02)
[2018-08-22] MEDS: Norepinephrine 16MCG/ML IVPRE* 4,000 MCG/250 ML BAG IV SCH (20:09)
[2018-08-22] MEDS ORDERED: Oseltamivir SUSP 30 MG dose* 30 MG/5 ML ORAL.SYRIN PO SCH (21:00)
[2018-08-22] MEDS ORDERED: Oseltamivir CAP* 30 MG CAP PO SCH (21:00)
[2018-08-22] MEDS ORDERED: Oseltamivir SUSP 75 MG dose* 75 MG/12.5 ML ORAL.SYRIN PO SCH (21:00)
[2018-08-22] MEDS ORDERED: NS 0.9% 500 ML* 500 ML IV ONE ×2 (21:02→22:08)
[2018-08-22] MEDS: Apixaban* 2.5 MG TAB PO SCH (22:12)
[2018-08-22] MEDS: Gabapentin CAP(*) 100 MG PO SCH (22:12)
[2018-08-22] MEDS: Oseltamivir SUSP* ORALSYR 6 MG/ML PO SCH (22:18)
[2018-08-22] MEDS: guaiFENesin ER TAB 600 MG PO SCH (23:02)
[2018-08-22] MEDS: Lactobacillus Acidophilus* 1 TAB PO SCH (23:03)
[2018-08-22] MEDS: Melatonin 3 MG TAB PO SCH (23:03)
[2018-08-23] MEDS ORDERED: NS 0.9% 250 ML* 250 ML IV ONE (01:00)
[2018-08-23] MEDS: Acetaminophen IV 1GM/100ML * 100 ML IVPB SCH ×2 (01:22→09:13)
[2018-08-23] MEDS: Phenylephrine 10 MG/ML VIAL* 50 MG in NS 0.9% 250 ML* 245 ML IV SCH ×6 (02:31→22:06)
[2018-08-23] MEDS: Vancomycin(*) 750 MG in NS 0.9% 250 ML* 250 ML IVPB SCH ×2 (02:31→11:15)
[2018-08-23] MEDS: Albuterol/Ipratropium NEB.SOL* Albuterol 2.5 MG/Ipratropium 0.5 MG 3 ML INH SCH ×6 (02:37→22:56)
[2018-08-23] MEDS: ZOSYN 3.375 GM Q8H per EXTENDED INFUSION IVPB SCH ×6 (05:50→22:07)
[2018-08-23] MEDS: Levothyroxine TAB* 100 MCG TAB PO SCH (05:50)
[2018-08-23] MEDS: Pantoprazole TAB * 40 MG TAB PO SCH (05:50)
[2018-08-23 06:24] LABS: Hematocrit 36 % (42-52); Hemoglobin 11.3 g/dl (14.0-18.0); Mean Corpuscular HGB Conc 31 g/dl (31-36); Mean Corpuscular Hemoglobin 32 pg (27-31); Mean Corpuscular Volume 103 fL (80-94); Mean Platelet Volume 11.2 fL (7.4-10.4); Platelet Count 166 10^3/ul (150-450); Red Blood Count 3.51 10^6/ul (4.00-5.40); Red Cell Distribution Width 18 % (10.5-15); White Blood Count 21.6 10^3/ul (3.5-10.8)
[2018-08-23 06:47] LABS: ABS Basophils 0.1 10^3/ul (0-0.2); ABS Eosinophils 0 10^3/ul (0-0.6); ABS Lymphocytes 1.8 10^3/ul (1.0-4.8); ABS Monocytes 1.1 10^3/ul (0-0.8); ABS Neutrophils 18.6 10^3/ul (1.5-7.7); ABS Nucleated RBC 0.2 10^3/ul; Eosinophil % 0.1 %; Lymphocyte % 8.4 %
[2018-08-23 06:48] LABS: Albumin/Globulin Ratio 1.3 (1-3); BUN/Creatinine Ratio 19.5 (8-20); Calcium 7.2 mg/dL (8.6-10.3); EGFR African American 48.3 (>60); EGFR Non-African American 39.9 (>60); Globulin 2.4 g/dL (2-4); Indirect Bilirubin 0.9 mg/dL (0.3-1.0); Magnesium 1.4 mg/dL (1.9-2.7); Potassium 3.5 mmol/L (3.5-5.0); Total Bilirubin 1.6 mg/dL (0.2-1.0); Total Protein 5.4 g/dL (6.4-8.9)
[2018-08-23 06:50] LABS: Large Platelets Present
[2018-08-23 06:53] LABS: Polychromasia 1+
[2018-08-23] MEDS: Insulin LISPRO* 1 UNITS UNIT SUBCUT SCH ×4 (08:05→19:53)
[2018-08-23] MEDS: Gabapentin CAP(*) 100 MG PO SCH ×2 (08:10→19:56)
[2018-08-23] MEDS: Lactobacillus Acidophilus* 1 TAB PO SCH ×2 (08:10→19:57)
[2018-08-23] MEDS: Digoxin TAB* 0.125 MG PO SCH (08:10)
[2018-08-23] MEDS: guaiFENesin ER TAB 600 MG PO SCH ×2 (08:10→19:57)
[2018-08-23] MEDS: Cyanocobalamin TAB* 500 MCG PO SCH (08:10)
[2018-08-23] MEDS: Folic Acid TAB* 1 MG PO SCH (08:10)
[2018-08-23] MEDS: Ferrous Sulfate TAB* 325 MG PO SCH (08:10)
[2018-08-23] MEDS: Ascorbic Acid TAB* 500 MG PO SCH (08:11)
[2018-08-23] MEDS: Apixaban* 2.5 MG TAB PO SCH (08:11)
[2018-08-23] MEDS: Atorvastatin* 10 MG TAB PO SCH (08:16)
[2018-08-23] MEDS: Oseltamivir SUSP* ORALSYR 6 MG/ML PO SCH ×2 (08:18→20:04)
[2018-08-23] MEDS ORDERED: KCL 20 MEQ/100 ML IVPREMIX* 20 MEQ/100 ML BAG IV ONE (08:29)
[2018-08-23] MEDS ORDERED: Magnesium Sulfate IV* 2 GM in NS 0.9% 100 ML* 100 ML IV ONE (08:29)
[2018-08-23] MEDS ORDERED: Ciprofloxacin 400MG IVPREMIX(* 400 MG/200 ML BAG IVPB SCH (10:00)
[2018-08-23] MEDS: Norepinephrine 16MCG/ML IVPRE* 4,000 MCG/250 ML BAG IV SCH (10:50)
[2018-08-23] MEDS: NS 0.9% 1000 ML** 1,000 ML IV SCH (10:58)
--- NOTE | 2018-08-23 12:18 | PN ---
Progress Note - Progress Note Date of Service: 08/23/18 Note: Progress Note -- Critical Care 24 hour events -remains on NIV 60%; more awake/alert, verbalizing -son came last night to visit -remains on carey and levo but decreasing requirements -currently 99-100; tmax 103 yesterday -making urine -tachypneic still, but no sig acc muscle use, labile -tachycardic + Tele: sinus tachycardia Vitals: Vital Signs Temp 100.0 F 08/23/18 11:01 Pulse 113 08/23/18 11:10 Resp 28 08/23/18 11:10 BP 130/52 08/23/18 11:00 Pulse Ox 96 08/23/18 11:10 Intake & Output 08/22/18 08/23/18 08/23/18 18:59 06:59 18:59 Intake Total 1250 2923.4 200 Output Total 850 985 400 Balance 400 1938.4 -200 Weight 58.967 kg 57.6 kg Intake: IV Fluids 1250 1364 NS (0.9%) 1364 IVPB 575 ABX - VANCOMYCIN 166 ABX - ZOSYN 209 ORIFIMEV 200 Medicated IV 984.4 CC - Norepinephrine/ 328.4 Levophed CC - Phenylephrine/ 656 Neosynephrine Oral 200 Output: [place] 470 985 400 Residual 380 [place] Temperature Probe 380 O2/Vent: NIV 16/8 60% Infusions: carey off now, levo 10, ns 75cc/hr Current Medications: Acetaminophen (Tylenol Tab*) 650 mg PO Q6H PRN PRN Reason: FEVER/PAIN Albuterol/Ipratropium (Duoneb (Albuterol 2.5 Mg/Ipratropium 0.5 Mg)) 1 neb INH [id number] AWAKE [facility] Last Admin: 08/23/18 11:07 Dose: 1 neb Apixaban (Eliquis*) 2.5 mg PO BID [facility] Last Admin: 08/23/18 08:11 Dose: 2.5 mg Ascorbic Acid (Vitamin C Tab*) 500 mg PO DAILY [facility] Last Admin: 08/23/18 08:11 Dose: 500 mg Atorvastatin Calcium (Lipitor*) 10 mg PO DAILY [facility] Last Admin: 08/23/18 08:16 Dose: 10 mg Benzonatate (Tessalon Cap*) 100 mg PO Q8HR PRN PRN Reason: COUGH Cyanocobalamin (Vitamin B12 Tab*) 1,000 mcg PO DAILY [facility] Last Admin: 08/23/18 08:10 Dose: 1,000 mcg Dextrose (D50w Syringe 50 Ml*) 12.5 gm IV PUSH .FOR FS < 60 - SS PRN PRN Reason: FS < 60 Digoxin (Lanoxin Tab*) 0.125 mg PO DAILY [facility] Last Admin: 08/23/18 08:10 Dose: 0.125 mg Docusate Sodium (Colace Cap*) 100 mg PO BID PRN PRN Reason: CONSTIPATION Ferrous Sulfate (Ferrous Sulfate Tab*) 325 mg PO DAILY [facility] Last Admin: 08/23/18 08:10 Dose: 325 mg Folic Acid (Folvite Tab*) 1 mg PO DAILY [facility] Last Admin: 08/23/18 08:10 Dose: 1 mg Gabapentin (Neurontin Cap(*)) 100 mg PO BID [facility] Last Admin: 08/23/18 08:10 Dose: 100 mg Guaifenesin (Mucinex*) 600 mg PO BID [facility] Last Admin: 08/23/18 08:10 Dose: 600 mg Vancomycin HCl 750 mg/ Sodium (Chloride) 250 mls @ 166.667 mls/hr IVPB Q8H [facility] ; Protocol Last Admin: 08/23/18 11:15 Dose: 166.667 mls/hr Piperacillin Sod/Tazobactam (Sod 3.375 gm/ Sodium Chloride) 100 mls @ 25 mls/ hr IVPB Q8H [facility] Last Admin: 08/23/18 05:50 Dose: 25 mls/hr Norepinephrine Bitartrate (Levophed 16 Mcg/Ml Premix Bag*) 4,000 mcg in 250 mls @ 18.75 mls/hr IV .INITIAL RATE [facility]; Protocol Last Admin: 08/23/18 10:50 Dose: 30 mls/hr Phenylephrine HCl 50 mg/ (Sodium Chloride) 250 mls @ 60 mls/hr IV Q4H [facility]; Protocol Last Admin: 08/23/18 09:08 Dose: 60 mls/hr Sodium Chloride (Ns 0.9% 1000 Ml) 1,000 mls @ 75 mls/hr IV PER RATE [facility] Last Admin: 08/23/18 10:58 Dose: 75 mls/hr Insulin Human Lispro (Humalog*) 0 units SUBCUT ACHS [facility]; Protocol Last Admin: 08/23/18 08:05 Dose: 2 units Lactobacillus Rhamnosus (Lactobacillus Acidophilus*) 2 tab PO BID [facility] Last Admin: 08/23/18 08:10 Dose: 2 tab Levothyroxine Sodium (Synthroid Tab*) 100 mcg PO 0600 [facility] Last Admin: 08/23/18 05:50 Dose: 100 mcg Melatonin (Melatonin) 3 mg PO BEDTIME [facility] Last Admin: 08/22/18 23:03 Dose: Not Given Oseltamivir Phosphate (Tamiflu Susp* Oralsyr) 30 mg PO BID [facility] Stop: 08/27/18 09:01 Last Admin: 08/23/18 08:18 Dose: 30 mg Pantoprazole Sodium (Protonix Tab*) 40 mg PO DAILY@0600 [facility] Last Admin: 08/23/18 05:50 Dose: 40 mg Pharmacy Consult (Zosyn Per Pharmacy*) 1 note FOLLOW UP .ZOSYN PER PHARMACY [facility] Pharmacy Consult (Vancomycin Per Pharmacy*) 1 note FOLLOW UP . PRN PRN Reason: PER PROTOCOL Pharmacy Profile Note (Vancomycin Trough Check) 1 note FOLLOW UP 1030 ONE Stop: 08/24/18 10:31 Polyethyl Glycol/Propylene Glycol (Lubricant Eye Drops) 1 drop BOTH EYES TID PRN PRN Reason: DRY EYE Physical Exam: Constitutional: awake, alert, tachypneic++, in resp distress, not diaphoretic Head: normocephalic, atraumatic Eyes: no pallor, no icterus ENT: moist mucous membranes Neck: soft, supple, no jvd, no stridor CVS: tachycardic, regular, no murmur Respiratory: bilateral air entry, diffuse rhales++ Right>, no wheeze, no rhonchi, +acc muscle use mild Abdomen: soft, nontender, nondistended, BS+ Ext: pulses+, warm, no edema Skin: intact, warm Neuro: awake, alert, moving all ext, oriented 1-2x Labs: Laboratory Results - last 24 hr 08/22/18 08/22/18 08/22/18 13:42 14:44 15:15 WBC RBC Hgb Hct MCV MCH MCHC RDW Plt Count MPV Neut % (Auto) Lymph % (Auto) Burke % (Auto) Eos % (Auto) Baso % (Auto) Absolute Neuts (auto) Absolute Lymphs (auto) Absolute Monos (auto) Absolute Eos (auto) Absolute Basos (auto) Absolute Nucleated RBC Nucleated RBC % Large Platelets Giant Platelets Polychromasia Patient Temperature ABG pH 7.21 L ABG pH (Temp Correct) ABG pCO2 58 H ABG pCO2 (Temp Corrct ABG pO2 60 L ABG pO2 (Temp Correct ABG HCO3 20.3 ABG O2 Saturation 88.8 L ABG Base Excess -5.5 L Respiration Rate O2 Delivery Device Ventilator Type Vent Mode FiO2 Inspiratory Time PEEP Pressure Support Pressure Control EPAP IPAP BiPAP Sodium Potassium Chloride Carbon Dioxide Anion Gap BUN Creatinine Est GFR ( Amer) Est GFR (Non-Af Amer) BUN/Creatinine Ratio Glucose POC Glucose (mg/dL) 216 H Lactic Acid 3.0 H* Calcium Magnesium Total Bilirubin Direct Bilirubin Indirect Bilirubin AST ALT Alkaline Phosphatase B-Natriuretic Peptide Total Protein Albumin Globulin Albumin/Globulin Ratio TSH Urine Color Urine Appearance Urine pH Ur Specific [place] Urine Protein Urine Ketones Urine Blood Urine Nitrate Urine Bilirubin Urine Urobilinogen Ur Leukocyte Esterase Urine WBC (Auto) Urine RBC (Auto) Urine Bacteria Urine Glucose 08/22/18 08/22/18 08/22/18 15:15 15:30 16:36 WBC RBC Hgb Hct MCV MCH MCHC RDW Plt Count MPV Neut % (Auto) Lymph % (Auto) Burke % (Auto) Eos % (Auto) Baso % (Auto) Absolute Neuts (auto) Absolute Lymphs (auto) Absolute Monos (auto) Absolute Eos (auto) Absolute Basos (auto) Absolute Nucleated RBC Nucleated RBC % Large Platelets Giant Platelets Polychromasia Patient Temperature ABG pH ABG pH (Temp Correct) ABG pCO2 ABG pCO2 (Temp Corrct ABG pO2 ABG pO2 (Temp Correct ABG HCO3 ABG O2 Saturation ABG Base Excess Respiration Rate O2 Delivery Device Ventilator Type Vent Mode FiO2 Inspiratory Time PEEP Pressure Support Pressure Control EPAP IPAP BiPAP Sodium 134 L Potassium 3.9 Chloride 103 Carbon Dioxide 24 Anion Gap 7 BUN 26 H Creatinine 1.17 Est GFR ( Amer) 71.4 Est GFR (Non-Af Amer) 59.0 BUN/Creatinine Ratio 22.2 H Glucose 252 H POC Glucose (mg/dL) 242 H Lactic Acid Calcium 8.0 L Magnesium Total Bilirubin 1.40 H Direct Bilirubin Indirect Bilirubin AST 59 H ALT 28 Alkaline Phosphatase 66 B-Natriuretic Peptide Total Protein 6.5 Albumin 3.7 Globulin 2.8 Albumin/Globulin Ratio 1.3 TSH 3.41 Urine Color Red A Urine Appearance Cloudy Urine pH 6.0 Ur Specific [place] 1.010 Urine Protein 2+(100 mg/dl) A Urine Ketones Negative Urine Blood 3+ A Urine Nitrate Negative Urine Bilirubin Negative Urine Urobilinogen Negative Ur Leukocyte Esterase 1+ A Urine WBC (Auto) 3+(>20/hpf) A Urine RBC (Auto) 3+(>10/hpf) A Urine Bacteria Absent Urine Glucose Negative 08/22/18 08/22/18 08/22/18 16:37 20:23 21:14 WBC RBC Hgb Hct MCV MCH MCHC RDW Plt Count MPV Neut % (Auto) Lymph % (Auto) Burke % (Auto) Eos % (Auto) Baso % (Auto) Absolute Neuts (auto) Absolute Lymphs (auto) Absolute Monos (auto) Absolute Eos (auto) Absolute Basos (auto) Absolute Nucleated RBC Nucleated RBC % Large Platelets Giant Platelets Polychromasia Patient Temperature Not Reportable ABG pH 7.39 ABG pH (Temp Correct) Not Reportable ABG pCO2 32 L ABG pCO2 (Temp Corrct Not Reportable ABG pO2 70 L ABG pO2 (Temp Correct Not Reportable ABG HCO3 21.2 ABG O2 Saturation 96.8 ABG Base Excess -4.6 L Respiration Rate 16 O2 Delivery Device bipap Ventilator Type Not Reportable Vent Mode s/t FiO2 60 Inspiratory Time Not Reportable PEEP Not Reportable Pressure Support Not Reportable Pressure Control Not Reportable EPAP 8 IPAP 16 BiPAP Not Reportable Sodium Potassium Chloride Carbon Dioxide Anion Gap BUN Creatinine Est GFR ( Amer) Est GFR (Non-Af Amer) BUN/Creatinine Ratio Glucose POC Glucose (mg/dL) 249 H Lactic Acid 4.5 H* Calcium Magnesium Total Bilirubin Direct Bilirubin Indirect Bilirubin AST ALT Alkaline Phosphatase B-Natriuretic Peptide Total Protein Albumin Globulin Albumin/Globulin Ratio TSH Urine Color Urine Appearance Urine pH Ur Specific [place] Urine Protein Urine Ketones Urine Blood Urine Nitrate Urine Bilirubin Urine Urobilinogen Ur Leukocyte Esterase Urine WBC (Auto) Urine RBC (Auto) Urine Bacteria Urine Glucose 08/23/18 08/23/18 08/23/18 00:00 03:10 05:57 WBC RBC Hgb Hct MCV MCH MCHC RDW Plt Count MPV Neut % (Auto) Lymph % (Auto) Burke % (Auto) Eos % (Auto) Baso % (Auto) Absolute Neuts (auto) Absolute Lymphs (auto) Absolute Monos (auto) Absolute Eos (auto) Absolute Basos (auto) Absolute Nucleated RBC Nucleated RBC % Large Platelets Giant Platelets Polychromasia Patient Temperature ABG pH ABG pH (Temp Correct) ABG pCO2 ABG pCO2 (Temp Corrct ABG pO2 ABG pO2 (Temp Correct ABG HCO3 ABG O2 Saturation ABG Base Excess Respiration Rate O2 Delivery Device Ventilator Type Vent Mode FiO2 Inspiratory Time PEEP Pressure Support Pressure Control EPAP IPAP BiPAP Sodium 137 Potassium 3.5 Chloride 108 Carbon Dioxide 18 L Anion Gap 11 BUN 32 H Creatinine 1.64 H Est GFR ( Amer) 48.3 Est GFR (Non-Af Amer) 39.9 BUN/Creatinine Ratio 19.5 Glucose 229 H POC Glucose (mg/dL) Lactic Acid 5.5 H* 5.2 H* Calcium 7.2 L Magnesium 1.4 L Total Bilirubin 1.60 H Direct Bilirubin 0.70 H Indirect Bilirubin 0.9 AST 51 H ALT 26 Alkaline Phosphatase 34 B-Natriuretic Peptide Total Protein 5.4 L Albumin 3.0 L Globulin 2.4 Albumin/Globulin Ratio 1.3 TSH Urine Color Urine Appearance Urine pH Ur Specific [place] Urine Protein Urine Ketones Urine Blood Urine Nitrate Urine Bilirubin Urine Urobilinogen Ur Leukocyte Esterase Urine WBC (Auto) Urine RBC (Auto) Urine Bacteria Urine Glucose 08/23/18 08/23/18 08/23/18 05:57 05:57 05:57 WBC 21.6 H RBC 3.51 L Hgb 11.3 L Hct 36 L MCV 103 H MCH 32 H MCHC 31 RDW 18 H Plt Count 166 MPV 11.2 H Neut % (Auto) 86.1 Lymph % (Auto) 8.4 Burke % (Auto) 5.1 Eos % (Auto) 0.1 Baso % (Auto) 0.3 Absolute Neuts (auto) 18.6 H Absolute Lymphs (auto) 1.8 Absolute Monos (auto) 1.1 H Absolute Eos (auto) 0 Absolute Basos (auto) 0.1 Absolute Nucleated RBC 0.2 Nucleated RBC % 1.0 Large Platelets Present Giant Platelets Present Polychromasia 1+ Patient Temperature ABG pH ABG pH (Temp Correct) ABG pCO2 ABG pCO2 (Temp Corrct ABG pO2 ABG pO2 (Temp Correct ABG HCO3 ABG O2 Saturation ABG Base Excess Respiration Rate O2 Delivery Device Ventilator Type Vent Mode FiO2 Inspiratory Time PEEP Pressure Support Pressure Control EPAP IPAP BiPAP Sodium Potassium Chloride Carbon Dioxide Anion Gap BUN Creatinine Est GFR ( Amer) Est GFR (Non-Af Amer) BUN/Creatinine Ratio Glucose POC Glucose (mg/dL) Lactic Acid 4.6 H* Calcium Magnesium Total Bilirubin Direct Bilirubin Indirect Bilirubin AST ALT Alkaline Phosphatase B-Natriuretic Peptide 915 H Total Protein Albumin Globulin Albumin/Globulin Ratio TSH Urine Color Urine Appearance Urine pH Ur Specific [place] Urine Protein Urine Ketones Urine Blood Urine Nitrate Urine Bilirubin Urine Urobilinogen Ur Leukocyte Esterase Urine WBC (Auto) Urine RBC (Auto) Urine Bacteria Urine Glucose Imaging: cxr 08/22 - RUL consolidation cxr 08/23 - RUL and RLL consolidation+; mild left side congestion, better than yesterday? 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 Initiall noted to be hypoxic 83% on 2 L. He stated to them he was more SOB, but also noted to be confused by staff. Oxygen increased, temp noted 100.5, tachycardic 110, tachypneic 20-30s. Sepsis protocol ordered, given 1 L NS. Started on Empiric IV abx, found to be Influenza A positive, started on tamiflu. CXR initially demonstrated RUL consolidation+. He improved initially and admitted to medical floor. He was noted to be febrile 102.9 later. 08/22- admitted for hypoxia, pneumonia, sepsis tx started, now in pulm edema -Acute Hypercapneic and Hypoxic respiratory failure 08/22 -Severe Sepsis 2/2 -Multilobar Right Upper/lower pneumonia 2/2 to Influenza A+ -Pulmonary Congestion -Acute on chronic decompensated LV diastolic heart failure -Severe Sepsis with Shock -Delirium 2/2 to sepsis -JAYME Afib Past Pseudomonas endocarditis, completed tx Plan: Neuro- improved mental status; likely metabolic/hypoperfusion as cause -asp prec, delirium prec CVS- -SHock 2/2 to sepsis; on carey and levophed, weanind down/improving - cont IVF NS 75cc/hr -IV abx -trend LA q4-6 hours -making urine, positive balance -hold diuretics for now -cont dig for rate control for Afib -hold apixiban for Afib AC tonight 2/2 to oozing from central line and JAYME; restart tomorrow AM Resp- -hypoxia and hypercapnea better; more alert; remains on 60% NIV -CXr with RUL/RLL consolidation+, possible mild congestion -sputum culture if able -NIV continued for resp support; noted DNR/DNI; critically ill; attempted contact with Son Uzair to update and review GOC -IV abx for influenza and for HCAP coverage ID- tmax 100. WBC incr to 21 -CXR RUL/RLL consolidation+ -Influenza A+; Tamiflu 30mg PO BID (day#2); re-eval CrCl tomorrow -given recent hospitalization, Empiric HCAP therapy also given critical illness ; check sputum culture; cont zosyn (day#2), vanco (day#2) GI- NPO. aspiration prec. GI proph Renal- -JAYME; Cr increased; making urine, positive balance+ -making urine, will readjust meds by tomorrow, suspect Jayme improved then -Hypokalemia, replete KCL 20meq x1 -hypomag, 2mg IV x1 -metabolic acidosis from renal insuff and LA production; trend LA -pressor support continued -IVF NS 75cc/hr; re-eval later today -BMP at 4pm Heme- hg stable, plt stable -anemia; cont b12/folate -holding apixiban for Afib AC till tomorrow morning Endo- Maintain BG<200, insulin protocol as needed. -cont synthroid for hypothryoidism Musculsk- pressure ulcer prophylaxis. Bedrest. Wounds- none Nutrition- NPO due to resp distress DVT prophylaxis: apixiban, SCD GI prophylaxis: ppi Central Line: LIJ 08/22 placed Arterial Line: no [place] Cathetor: yes Disposition: Patient requires Critical Care/ICU for septic shock, acute hypoxic /hypercap resp failure req NIV, Influenza A pneumonia, acute on chr decompensated heart failure exaccerbation Patient Clinical Status: unstable, critical Code Status: DNR/DNI Total Critical Care time is 45 minutes, excluding procedures/teaching Stefan Ash MD [employer] (Electronically Signed)
[2018-08-23] MEDS: Acetaminophen TAB* 325 MG PO PRN (13:38)
[2018-08-23] MEDS ORDERED: Morphine 4 MG/ML VIAL (1 ml) 4 MG/ML VIAL IV ONE (13:47)
[2018-08-23] MEDS ORDERED: Magnesium Sulfate 2 GM IV (Premix) IVPB ONE (14:00)
[2018-08-23] MEDS ORDERED: NS 0.9% 500 ML* 500 ML IV ONE (15:06)
[2018-08-23 17:03] LABS: BUN/Creatinine Ratio 18.6 (8-20); EGFR African American 51.2 (>60); EGFR Non-African American 42.3 (>60); Potassium 3.5 mmol/L (3.5-5.0)
[2018-08-23] MEDS: Melatonin 3 MG TAB PO SCH (19:57)
[2018-08-24] MEDS: Norepinephrine 16MCG/ML IVPRE* 4,000 MCG/250 ML BAG IV SCH (01:59)
[2018-08-24] MEDS: NS 0.9% 1000 ML** 1,000 ML IV SCH (01:59)
[2018-08-24] MEDS: Albuterol/Ipratropium NEB.SOL* Albuterol 2.5 MG/Ipratropium 0.5 MG 3 ML INH SCH ×6 (02:55→23:27)
[2018-08-24 05:35] LABS: Hematocrit 31 % (36-46); Hemoglobin 9.8 g/dL (14.0-18.0); Mean Corpuscular HGB Conc 31 g/dL (31-36); Mean Corpuscular Hemoglobin 32 pg (27-31); Mean Corpuscular Volume 101 fL (80-94); Mean Platelet Volume 11.6 fL (7.4-10.4); Platelet Count 176 10^3/uL (150-450); Red Cell Distribution Width 19 % (10.5-15); White Blood Count 18.3 10^3/uL (3.5-10.8)
[2018-08-24 05:37] LABS: Albumin 2.7 g/dL (3.2-5.2); Albumin/Globulin Ratio 1.1 (1-3); BUN/Creatinine Ratio 23.5 (8-20); Calcium 6.8 mg/dL (8.6-10.3); EGFR African American 62.1 (>60); EGFR Non-African American 51.3 (>60); Globulin 2.5 g/dL (2-4); Indirect Bilirubin 0.6 mg/dL (0.3-1.0); Magnesium 2.1 mg/dL (1.9-2.7); Potassium 3.7 mmol/L (3.5-5.0); Total Bilirubin 1.2 mg/dL (0.2-1.0); Total Protein 5.2 g/dL (6.4-8.9)
[2018-08-24] MEDS: Levothyroxine TAB* 100 MCG TAB PO SCH (05:40)
[2018-08-24] MEDS: Acetaminophen TAB* 325 MG PO PRN (05:41)
[2018-08-24] MEDS: Pantoprazole TAB * 40 MG TAB PO SCH (05:41)
[2018-08-24 05:59] LABS: Immature Granulocytes 6 % (0-9); Lymphocytes % 5 %; Monocytes % 6 %; Neutrophil % 83 %; Nucleated Red Blood Cells/100 3 (0-0)
[2018-08-24 06:01] LABS: Platelet Morphology Large; Vancomycin Random 8.6 mcg/mL
[2018-08-24 06:09] LABS: ABS Neutrophils 16.29 10^3/ul (1.5-7.7)
[2018-08-24] MEDS: ZOSYN 3.375 GM Q8H per EXTENDED INFUSION IVPB SCH ×6 (06:15→23:15)
[2018-08-24] MEDS ORDERED: Digoxin IV* 0.5 MG/2 ML AMP (0.25 MG/ML) IV SLOW PU ONE (06:42)
[2018-08-24] MEDS ORDERED: Amiodarone 150 MG IVPREMIX* 150 MG/100 ML BAG IV ONE ×3 (07:05→10:56)
[2018-08-24] MEDS ORDERED: Amiodarone IV VIAL* 3 ML ONE (07:07)
[2018-08-24] MEDS ORDERED: Furosemide IV* 10 MG/ML VIAL (40 MG) ONE (07:29)
[2018-08-24] MEDS: Phenylephrine 10 MG/ML VIAL* 50 MG in NS 0.9% 250 ML* 245 ML IV SCH ×2 (08:38→16:46)
[2018-08-24] MEDS: Insulin LISPRO* 1 UNITS UNIT SUBCUT SCH ×4 (08:39→21:27)
[2018-08-24] MEDS: Apixaban* 2.5 MG TAB PO SCH ×3 (08:54→20:19)
[2018-08-24] MEDS: Digoxin TAB* 0.125 MG PO SCH (08:54)
[2018-08-24] MEDS: Gabapentin CAP(*) 100 MG PO SCH ×2 (08:55→21:05)
[2018-08-24] MEDS ORDERED: Furosemide IV* 10 MG/ML VIAL (40 MG) IV ONE (09:00)
[2018-08-24] MEDS: Lactobacillus Acidophilus* 1 TAB PO SCH ×2 (10:25→21:03)
[2018-08-24] MEDS: Oseltamivir SUSP* ORALSYR 6 MG/ML PO SCH ×2 (10:25→21:04)
[2018-08-24] MEDS: Ferrous Sulfate TAB* 325 MG PO SCH (10:25)
[2018-08-24] MEDS: Ascorbic Acid TAB* 500 MG PO SCH (10:25)
[2018-08-24] MEDS: Folic Acid TAB* 1 MG PO SCH (10:25)
[2018-08-24] MEDS: guaiFENesin ER TAB 600 MG PO SCH ×2 (10:25→21:05)
[2018-08-24] MEDS: Cyanocobalamin TAB* 500 MCG PO SCH (10:25)
[2018-08-24] MEDS: Atorvastatin* 10 MG TAB PO SCH (10:25)
[2018-08-24] MEDS ORDERED: Vancomycin Trough Check NOTE FOLLOW UP ONE (10:30)
[2018-08-24] MEDS ORDERED: Amiodarone 360 MG IVPREMIX* 360 MG/200 ML BAG IV ONE ×2 (10:56→11:00)
--- NOTE | 2018-08-24 11:51 | PN ---
Progress Note - Progress Note Date of Service: 08/24/18 Note: Progress Note -- Critical Care 24 hour events -remains on NIV 60%; awake/alert, verbalizing -resp distress and rapid afib to 180 this morning; given dig 0.125mg iv , then i ordered amio 150mg bolus -improved rate, then repeat tachycardia; additional amio bolus and infusion being started -s/p lasix 40mg IV x1 -remains low grade temps , tmax 100.4 -tachypneic at times -on levop and carey for BP support -making urine; hematuria++ yesterday but now off AC and improved -discussed with both sons yesterday current status and plan; updated Tele: sinus tachycardia with intermitten paroxosymal afib Vitals: Vital Signs Temp 99.0 F 08/24/18 09:00 Pulse 94 08/24/18 09:00 Resp 28 08/24/18 09:00 BP 106/63 08/24/18 09:00 Pulse Ox 100 08/24/18 09:00 Intake & Output 08/23/18 08/24/18 08/24/18 18:59 06:59 18:59 Intake Total 6 1927 Output Total 1000 627 475 Balance 1036 1300 -475 Weight 58 kg Intake: IV Fluids 1360 1052 NS (0.9%) 1360 1052 IVPB 209 ABX - ZOSYN 209 Medicated IV 436 666 CC - Norepinephrine/ 261 231 Levophed CC - Phenylephrine/ 175 435 Neosynephrine Oral 240 Output: [place] 1000 627 475 Other: Estimated Stool Amount Large O2/Vent: NIV 16/8 70% Infusions: carey and levophed Current Medications: Acetaminophen (Tylenol Tab*) 650 mg PO Q6H PRN PRN Reason: FEVER/PAIN Last Admin: 08/24/18 05:41 Dose: 650 mg Albuterol/Ipratropium (Duoneb (Albuterol 2.5 Mg/Ipratropium 0.5 Mg)) 1 neb INH [id number] AWAKE [facility] Last Admin: 08/24/18 11:34 Dose: 1 neb Apixaban (Eliquis*) 2.5 mg PO BID [facility] Last Admin: 08/24/18 10:24 Dose: Not Given Ascorbic Acid (Vitamin C Tab*) 500 mg PO DAILY [facility] Last Admin: 08/24/18 10:25 Dose: Not Given Atorvastatin Calcium (Lipitor*) 10 mg PO DAILY [facility] Last Admin: 08/24/18 10:25 Dose: Not Given Benzonatate (Tessalon Cap*) 100 mg PO Q8HR PRN PRN Reason: COUGH Cyanocobalamin (Vitamin B12 Tab*) 1,000 mcg PO DAILY [facility] Last Admin: 08/24/18 10:25 Dose: Not Given Dextrose (D50w Syringe 50 Ml*) 12.5 gm IV PUSH .FOR FS < 60 - SS PRN PRN Reason: FS < 60 Digoxin (Lanoxin Tab*) 0.125 mg PO DAILY [facility] Last Admin: 08/24/18 08:54 Dose: 0.125 mg Docusate Sodium (Colace Cap*) 100 mg PO BID PRN PRN Reason: CONSTIPATION Ferrous Sulfate (Ferrous Sulfate Tab*) 325 mg PO DAILY [facility] Last Admin: 08/24/18 10:25 Dose: Not Given Folic Acid (Folvite Tab*) 1 mg PO DAILY [facility] Last Admin: 08/24/18 10:25 Dose: Not Given Gabapentin (Neurontin Cap(*)) 100 mg PO BID [facility] Last Admin: 08/24/18 08:55 Dose: 100 mg Guaifenesin (Mucinex*) 600 mg PO BID [facility] Last Admin: 08/24/18 10:25 Dose: Not Given Piperacillin Sod/Tazobactam (Sod 3.375 gm/ Sodium Chloride) 100 mls @ 25 mls/ hr IVPB Q8H [facility] Last Admin: 08/24/18 06:15 Dose: 25 mls/hr Norepinephrine Bitartrate (Levophed 16 Mcg/Ml Premix Bag*) 4,000 mcg in 250 mls @ 18.75 mls/hr IV .INITIAL RATE [facility]; Protocol Last Admin: 08/24/18 01:59 Dose: 15 mls/hr Sodium Chloride (Ns 0.9% 1000 Ml) 1,000 mls @ 75 mls/hr IV PER RATE [facility] Last Admin: 08/24/18 01:59 Dose: 75 mls/hr Phenylephrine HCl 50 mg/ (Sodium Chloride) 250 mls @ 30 mls/hr IV Q8H [facility]; Protocol Last Admin: 08/24/18 08:38 Dose: 15 mls/hr Amiodarone HCl (Nexterone 360 Mg/200 Ml Ivpremix*) 360 mg in 200 mls @ 33.333 mls/hr IV ONCE ONE Stop: 08/24/18 16:55 Last Admin: 08/24/18 11:12 Dose: 33.333 mls/hr Insulin Human Lispro (Humalog*) 0 units SUBCUT ACHS [facility]; Protocol Last Admin: 08/24/18 08:39 Dose: 2 units Lactobacillus Rhamnosus (Lactobacillus Acidophilus*) 2 tab PO BID [facility] Last Admin: 08/24/18 10:25 Dose: Not Given Levothyroxine Sodium (Synthroid Tab*) 100 mcg PO 0600 [facility] Last Admin: 08/24/18 05:40 Dose: 100 mcg Melatonin (Melatonin) 3 mg PO BEDTIME [facility] Last Admin: 08/23/18 19:57 Dose: 3 mg Oseltamivir Phosphate (Tamiflu Susp* Oralsyr) 30 mg PO BID [facility] Stop: 08/27/18 09:01 Last Admin: 08/24/18 10:25 Dose: Not Given Pantoprazole Sodium (Protonix Tab*) 40 mg PO DAILY@0600 [facility] Last Admin: 08/24/18 05:41 Dose: 40 mg Pharmacy Consult (Zosyn Per Pharmacy*) 1 note FOLLOW UP .ZOSYN PER PHARMACY [facility] Polyethyl Glycol/Propylene Glycol (Lubricant Eye Drops) 1 drop BOTH EYES TID PRN PRN Reason: DRY EYE Physical Exam: Constitutional: awake, alert, tachypneic++, in mild resp distress, not diaphoretic Head: normocephalic, atraumatic Eyes: no pallor, no icterus ENT: moist mucous membranes Neck: soft, supple, no jvd, no stridor CVS: tachycardic, regular, no murmur Respiratory: bilateral air entry, diffuse rhales++ Right>, no wheeze, no rhonchi, no acc muscle use Abdomen: soft, nontender, nondistended, BS+ Ext: pulses+, warm, no edema Skin: intact, warm Neuro: awake, alert, moving all ext, oriented 2-3x Labs: Laboratory Results - last 24 hr 08/23/18 08/23/18 08/23/18 07:57 12:37 12:43 WBC RBC Hgb Hct MCV MCH MCHC RDW Plt Count MPV Neut % (Auto) Lymph % (Auto) [place] % (Auto) Eos % (Auto) Baso % (Auto) Absolute Neuts (auto) Absolute Lymphs (auto) Absolute Monos (auto) Absolute Eos (auto) Absolute Basos (auto) Absolute Nucleated RBC Immature Gran % Neutrophils % Band Neutrophils % Lymphocytes % Monocytes % Nucleated RBC % Abs Neuts (Manual) Abs Lymphs (Manual) Abs Monocytes (Manual) Nucleated RBCs/100 WBC Platelet Morphology Normal RBC Morphology Sodium Potassium Chloride Carbon Dioxide Anion Gap BUN Creatinine Est GFR ( Amer) Est GFR (Non-Af Amer) BUN/Creatinine Ratio Glucose POC Glucose (mg/dL) 245 H 222 H Lactic Acid 3.0 H* Calcium Magnesium Total Bilirubin Direct Bilirubin Indirect Bilirubin AST ALT Alkaline Phosphatase Total Protein Albumin Globulin Albumin/Globulin Ratio Vancomycin Trough Random Vancomycin 08/23/18 08/23/18 08/23/18 12:43 16:36 16:36 WBC RBC Hgb Hct MCV MCH MCHC RDW Plt Count MPV Neut % (Auto) Lymph % (Auto) [place] % (Auto) Eos % (Auto) Baso % (Auto) Absolute Neuts (auto) Absolute Lymphs (auto) Absolute Monos (auto) Absolute Eos (auto) Absolute Basos (auto) Absolute Nucleated RBC Immature Gran % Neutrophils % Band Neutrophils % Lymphocytes % Monocytes % Nucleated RBC % Abs Neuts (Manual) Abs Lymphs (Manual) Abs Monocytes (Manual) Nucleated RBCs/100 WBC Platelet Morphology Normal RBC Morphology Sodium 139 Potassium 3.5 Chloride 112 H Carbon Dioxide 19 L Anion Gap 8 BUN 29 H Creatinine 1.56 H Est GFR ( Amer) 51.2 Est GFR (Non-Af Amer) 42.3 BUN/Creatinine Ratio 18.6 Glucose 142 H POC Glucose (mg/dL) Lactic Acid 2.1 H* Calcium 7.0 L Magnesium Total Bilirubin Direct Bilirubin Indirect Bilirubin AST ALT Alkaline Phosphatase Total Protein Albumin Globulin Albumin/Globulin Ratio Vancomycin Trough Random Vancomycin 47.5 08/23/18 08/24/18 08/24/18 19:52 05:05 05:05 WBC 18.3 H RBC 3.10 L Hgb 9.8 L Hct 31 L MCV 101 H MCH 32 H MCHC 31 RDW 19 H Plt Count 176 MPV 11.6 H Neut % (Auto) Not Reportable Lymph % (Auto) Not Reportable [place] % (Auto) Not Reportable Eos % (Auto) Not Reportable Baso % (Auto) Not Reportable Absolute Neuts (auto) Not Reportable Absolute Lymphs (auto) Not Reportable Absolute Monos (auto) Not Reportable Absolute Eos (auto) Not Reportable Absolute Basos (auto) Not Reportable Absolute Nucleated RBC Not Reportable Immature Gran % 6 Neutrophils % 83 Band Neutrophils % 6 Lymphocytes % 5 Monocytes % 6 Nucleated RBC % Not Reportable Abs Neuts (Manual) 16.29 H Abs Lymphs (Manual) 0.92 L Abs Monocytes (Manual) 1.10 H Nucleated RBCs/100 WBC 3 H Platelet Morphology Large Normal RBC Morphology Normal Sodium 137 Potassium 3.7 Chloride 115 H Carbon Dioxide 17 L Anion Gap 5 BUN 31 H Creatinine 1.32 H Est GFR ( Amer) 62.1 Est GFR (Non-Af Amer) 51.3 BUN/Creatinine Ratio 23.5 H Glucose 156 H POC Glucose (mg/dL) 132 H Lactic Acid Calcium 6.8 L Magnesium 2.1 Total Bilirubin 1.20 H Direct Bilirubin 0.60 H Indirect Bilirubin 0.6 AST 51 H ALT 24 Alkaline Phosphatase 33 L Total Protein 5.2 L Albumin 2.7 L Globulin 2.5 Albumin/Globulin Ratio 1.1 Vancomycin Trough Random Vancomycin 8.6 08/24/18 08/24/18 08:23 09:50 WBC RBC Hgb Hct MCV MCH MCHC RDW Plt Count MPV Neut % (Auto) Lymph % (Auto) [place] % (Auto) Eos % (Auto) Baso % (Auto) Absolute Neuts (auto) Absolute Lymphs (auto) Absolute Monos (auto) Absolute Eos (auto) Absolute Basos (auto) Absolute Nucleated RBC Immature Gran % Neutrophils % Band Neutrophils % Lymphocytes % Monocytes % Nucleated RBC % Abs Neuts (Manual) Abs Lymphs (Manual) Abs Monocytes (Manual) Nucleated RBCs/100 WBC Platelet Morphology Normal RBC Morphology Sodium Potassium Chloride Carbon Dioxide Anion Gap BUN Creatinine Est GFR ( Amer) Est GFR (Non-Af Amer) BUN/Creatinine Ratio Glucose POC Glucose (mg/dL) 204 H Lactic Acid Calcium Magnesium Total Bilirubin Direct Bilirubin Indirect Bilirubin AST ALT Alkaline Phosphatase Total Protein Albumin Globulin Albumin/Globulin Ratio Vancomycin Trough 7.9 Random Vancomycin Imaging: cxr 08/22 - RUL consolidation cxr 08/23 - RUL and RLL consolidation+; mild left side congestion, better than yesterday? 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 Initiall noted to be hypoxic 83% on 2 L. He stated to them he was more SOB, but also noted to be confused by staff. Oxygen increased, temp noted 100.5, tachycardic 110, tachypneic 20-30s. Sepsis protocol ordered, given 1 L NS. Started on Empiric IV abx, found to be Influenza A positive, started on tamiflu. CXR initially demonstrated RUL consolidation+. He improved initially and admitted to medical floor. He was noted to be febrile 102.9 later. 08/22- admitted for hypoxia, pneumonia, sepsis tx started, now in pulm edema 08/23 - no sig changes 08/24 - rapid afib, increased resp distress, remains on pressors and NIV -Acute Hypercapneic and Hypoxic respiratory failure 08/22 -Severe Sepsis 2/2 -Multilobar Right Upper/lower pneumonia 2/2 to Influenza A+ -Pulmonary Congestion mild -Acute on chronic decompensated LV diastolic heart failure -Severe Sepsis with Shock -Delirium 2/2 to sepsis -GRIFFIN -Afib with RVR Past Pseudomonas endocarditis, completed tx Plan: Neuro- improved mental status; likely metabolic/hypoperfusion as cause -asp prec, delirium prec CVS- -SHock 2/2 to sepsis; on carey and levophed -d/c IVF -rapid afib with RVR; cont dig; started amio bolus/infusion now -restart apixiban tonight; hematuria improved -IV abx -LA imrpoved -s/p lasix for possible congestion; hold further, PRN IVF Resp- -hypoxia and hypercapnea better; remains tachpneic from progressive pneumonia -70% fio2 on NIV; if improved will trial HFNC -CXR 08/24 with progressive Right multilobar consolidation++, very mild congestio non left -sputum culture if able -noted DNR/DNI; critically ill; discussed with both Sons, they are aware, reassessing day by day for improvement/worsening, they are cautiously waiting on change -IV abx for influenza and for HCAP coverage ID- tmax 100.4. WBC jun 01->18 -CXR 08/24 multilobar consolidation++ on right and progressive from 08/23 -Influenza A+; Tamiflu 30mg PO BID (day#3) -Empiric HCAP therapy also given critical illness; check sputum culture when able to give; cont zosyn (day#3); restart vanco today, pharmacy followup vanco ( day#3) GI- NPO, can trial liquids off NIV. aspiration prec. GI proph Renal- -GRIFFIN; Cr increased; making urine, positive balance+ -resp distres; s/p lasix this morning -hold IVF today -making urine, will readjust meds by tomorrow, suspect Griffin improved then -metabolic acidosis+ -LA improved -pressor support continued -hematuria improved after AC stopped Heme- hg stable 9-10, monitor trend -plt stable -restart apixiban for Afib AC tonight Endo- Maintain BG<200, insulin protocol as needed. -cont synthroid for hypothryoidism Musculsk- pressure ulcer prophylaxis. Bedrest. Wounds- none Nutrition- trial of fluids DVT prophylaxis: apixiban tonight, SCD GI prophylaxis: ppi Central Line: LIJ 08/22 placed Arterial Line: no [place] Cathetor: yes Disposition: Patient requires Critical Care/ICU for septic shock, acute hypoxic /hypercap resp failure req NIV, Influenza A pneumonia, acute on chr decompensated heart failure exaccerbation Patient Clinical Status: unstable, critical Code Status: DNR/DNI Total Critical Care time is 45 minutes, excluding procedures/teaching Stefan Ash MD Supervisor Chlorine Liquefaction (Electronically Signed)
[2018-08-24] MEDS ORDERED: Vancomycin per Pharmacy* NOTE FOLLOW UP SCH (12:00)
[2018-08-24] MEDS ORDERED: Vancomycin(*) 1,000 MG in NS 0.9% 250 ML* 250 ML IVPB ONE (12:30)
[2018-08-24] MEDS ORDERED: Amiodarone 360 MG IVPREMIX* 360 MG/200 ML BAG IV SCH (17:00)
[2018-08-24] MEDS: Melatonin 3 MG TAB PO SCH (21:04)
[2018-08-24] MEDS: Vancomycin(*) 750 MG in NS 0.9% 250 ML* 250 ML IVPB SCH (21:22)
[2018-08-25] MEDS: Albuterol/Ipratropium NEB.SOL* Albuterol 2.5 MG/Ipratropium 0.5 MG 3 ML INH SCH ×6 (02:55→23:33)
[2018-08-25] MEDS: Vancomycin(*) 750 MG in NS 0.9% 250 ML* 250 ML IVPB SCH (04:09)
[2018-08-25] MEDS: Phenylephrine 10 MG/ML VIAL* 50 MG in NS 0.9% 250 ML* 245 ML IV SCH ×2 (05:50→06:18)
[2018-08-25] MEDS: ZOSYN 3.375 GM Q8H per EXTENDED INFUSION IVPB SCH ×6 (06:12→21:53)
[2018-08-25] MEDS: Pantoprazole TAB * 40 MG TAB PO SCH ×2 (06:17→06:29)
[2018-08-25] MEDS: Levothyroxine TAB* 100 MCG TAB PO SCH (06:17)
[2018-08-25 06:28] LABS: Hematocrit 27 % (36-46); Hemoglobin 8.5 g/dL (14.0-18.0); Mean Corpuscular HGB Conc 32 g/dL (31-36); Mean Corpuscular Hemoglobin 32 pg (27-31); Mean Corpuscular Volume 100 fL (80-94); Platelet Count 158 10^3/uL (150-450); Red Blood Count 2.69 10^6 /uL (4.18-5.48); Red Cell Distribution Width 19 % (10.5-15); White Blood Count 12.5 10^3/uL (3.5-10.8)
[2018-08-25 06:46] LABS: Albumin 2.5 g/dL (3.2-5.2); BUN/Creatinine Ratio 26.3 (8-20); Calcium 6.7 mg/dL (8.6-10.3); EGFR African American 59.5 (>60); EGFR Non-African American 49.2 (>60); Globulin 2.5 g/dL (2-4); Indirect Bilirubin 0.6 mg/dL (0.3-1.0); Magnesium 2.1 mg/dL (1.9-2.7); Phosphorus 1.8 mg/dL (2.5-5.0); Potassium 3.2 mmol/L (3.5-5.0); Total Bilirubin 0.9 mg/dL (0.2-1.0)
[2018-08-25 07:33] LABS: Lymphocytes % 13 %; Monocytes % 3 %; Neutrophil % 84 %
[2018-08-25 07:35] LABS: ABS Neutrophils 10.6 10^3/ul (1.5-7.7)
[2018-08-25] MEDS: Digoxin TAB* 0.125 MG PO SCH (09:55)
[2018-08-25] MEDS: Insulin LISPRO* 1 UNITS UNIT SUBCUT SCH ×4 (09:55→21:07)
[2018-08-25] MEDS: Cyanocobalamin TAB* 500 MCG PO SCH (09:56)
[2018-08-25] MEDS: Apixaban* 2.5 MG TAB PO SCH ×2 (09:56→21:18)
[2018-08-25] MEDS: Ferrous Sulfate TAB* 325 MG PO SCH (09:56)
[2018-08-25] MEDS: Folic Acid TAB* 1 MG PO SCH (09:56)
[2018-08-25] MEDS: Ascorbic Acid TAB* 500 MG PO SCH (09:56)
[2018-08-25] MEDS: Atorvastatin* 10 MG TAB PO SCH (09:56)
[2018-08-25] MEDS: Lactobacillus Acidophilus* 1 TAB PO SCH ×2 (09:57→23:13)
[2018-08-25] MEDS ORDERED: KCL 20 MEQ/100 ML IVPREMIX* 20 MEQ/100 ML BAG IV ONE (10:30)
[2018-08-25] MEDS: guaiFENesin ER TAB 600 MG PO SCH ×2 (10:54→23:13)
[2018-08-25] MEDS: Gabapentin CAP(*) 100 MG PO SCH ×2 (10:54→23:13)
[2018-08-25] MEDS ORDERED: NS 0.45% 1000 ML BAG* 1,000 ML IV SCH (11:00)
[2018-08-25] MEDS ORDERED: Potassium Phosphate IV* 15 MMOLE in NS 0.9% 250 ML* 250 ML IVPB ONE (11:00)
[2018-08-25] MEDS ORDERED: Vancomycin Trough Check NOTE FOLLOW UP ONE (11:30)
--- NOTE | 2018-08-25 12:48 | PN ---
Progress Note - Progress Note Date of Service: 08/25/18 Note: Progress Note -- Critical Care 24 hour events -on NIV 50% now, sats 90s -remains tachypneic; awake/alert though -unable to be taken off NIV, becomes distressed -off pressors now -tmax 100.8 -making urine but less, slighty hematuria noted -s/p lasix and amio infusion yesterday for resp distress, rapid afib; now in NSR , made good urine Tele: Afib before, now in NSR Vitals: Vital Signs Temp 99.1 F 08/25/18 12:15 Pulse 97 08/25/18 12:15 Resp 41 08/25/18 12:15 BP 125/53 08/25/18 12:15 Pulse Ox 96 08/25/18 12:15 Intake & Output 08/24/18 08/25/18 08/25/18 18:59 06:59 18:59 Intake Total 680 268 Output Total 1984 1105 230 Balance -2405 -837 -230 Weight 62.8 kg Intake: IV Fluids 340 ABX - VANCOMYCIN 245 NS (0.9%) 95 IVPB 268 ABX - VANCOMYCIN 260 ABX - ZOSYN 8 Medicated IV 340 CC - Norepinephrine/ 178 Levophed CC - Phenylephrine/ 162 Neosynephrine Oral 0 Output: [place] 1984 1105 230 Other: Estimated Void Medium Estimated Stool Amount Large # Voids 1 O2/Vent: NIV 25/01 50% Infusions: - Current Medications: Acetaminophen (Tylenol Tab*) 650 mg PO Q6H PRN PRN Reason: FEVER/PAIN Last Admin: 08/24/18 05:41 Dose: 650 mg Albuterol/Ipratropium (Duoneb (Albuterol 2.5 Mg/Ipratropium 0.5 Mg)) 1 neb INH [id number] AWAKE [facility] Last Admin: 08/25/18 11:07 Dose: 1 neb Apixaban (Eliquis*) 2.5 mg PO BID [facility] Last Admin: 08/25/18 09:56 Dose: 2.5 mg Ascorbic Acid (Vitamin C Tab*) 500 mg PO DAILY [facility] Last Admin: 08/25/18 09:56 Dose: Not Given Atorvastatin Calcium (Lipitor*) 10 mg PO DAILY [facility] Last Admin: 08/25/18 09:56 Dose: 10 mg Benzonatate (Tessalon Cap*) 100 mg PO Q8HR PRN PRN Reason: COUGH Cyanocobalamin (Vitamin B12 Tab*) 1,000 mcg PO DAILY [facility] Last Admin: 08/25/18 09:56 Dose: Not Given Dextrose (D50w Syringe 50 Ml*) 12.5 gm IV PUSH .FOR FS < 60 - SS PRN PRN Reason: FS < 60 Digoxin (Lanoxin Tab*) 0.125 mg PO DAILY [facility] Last Admin: 08/25/18 09:55 Dose: 0.125 mg Docusate Sodium (Colace Cap*) 100 mg PO BID PRN PRN Reason: CONSTIPATION Ferrous Sulfate (Ferrous Sulfate Tab*) 325 mg PO DAILY [facility] Last Admin: 08/25/18 09:56 Dose: Not Given Folic Acid (Folvite Tab*) 1 mg PO DAILY [facility] Last Admin: 08/25/18 09:56 Dose: Not Given Gabapentin (Neurontin Cap(*)) 100 mg PO BID [facility] Last Admin: 08/25/18 10:54 Dose: Not Given Guaifenesin (Mucinex*) 600 mg PO BID [facility] Last Admin: 08/25/18 10:54 Dose: Not Given Piperacillin Sod/Tazobactam (Sod 3.375 gm/ Sodium Chloride) 100 mls @ 25 mls/ hr IVPB Q8H [facility] Last Admin: 08/25/18 06:12 Dose: 25 mls/hr Norepinephrine Bitartrate (Levophed 16 Mcg/Ml Premix Bag*) 4,000 mcg in 250 mls @ 18.75 mls/hr IV .INITIAL RATE [facility]; Protocol Last Admin: 08/24/18 01:59 Dose: 15 mls/hr Phenylephrine HCl 50 mg/ (Sodium Chloride) 250 mls @ 30 mls/hr IV Q8H [facility]; Protocol Last Admin: 08/25/18 06:18 Dose: Not Given Vancomycin HCl 750 mg/ Sodium (Chloride) 250 mls @ 166.667 mls/hr IVPB Q8H [facility] Last Admin: 08/25/18 04:09 Dose: 166.667 mls/hr Amiodarone HCl (Nexterone 360 Mg/200 Ml Ivpremix*) 360 mg in 200 mls @ 16.667 mls/hr IV .SEE PROTOCOL FOUZIA Last Admin: 08/25/18 04:42 Dose: 16.667 mls/hr Potassium Chloride (Potassium Chloride 20 Meq/100 Ml Ivpremix*) 20 meq in 100 mls @ 50 mls/hr IV Q2H [facility] Stop: 08/25/18 13:29 Last Admin: 08/25/18 12:53 Dose: 50 mls/hr Potassium Phosphate 15 mmole/ (Sodium Chloride) 255 mls @ 42 mls/hr IVPB ONCE ONE Stop: 08/25/18 17:04 Last Admin: 08/25/18 12:15 Dose: 42 mls/hr Sodium Chloride (Ns 0.45% 1000 Ml Bag*) 1,000 mls @ 75 mls/hr IV PER RATE [facility] Last Admin: 08/25/18 12:15 Dose: 75 mls/hr Insulin Human Lispro (Humalog*) 0 units SUBCUT ACHS [facility]; Protocol Last Admin: 08/25/18 12:27 Dose: Not Given Lactobacillus Rhamnosus (Lactobacillus Acidophilus*) 2 tab PO BID [facility] Last Admin: 08/25/18 09:57 Dose: Not Given Levothyroxine Sodium (Synthroid Tab*) 100 mcg PO 0600 [facility] Last Admin: 08/25/18 06:17 Dose: 100 mcg Melatonin (Melatonin) 3 mg PO BEDTIME [facility] Last Admin: 08/24/18 21:04 Dose: Not Given Oseltamivir Phosphate (Tamiflu Susp* Oralsyr) 30 mg PO BID [facility] Stop: 08/27/18 09:01 Last Admin: 08/25/18 12:54 Dose: 30 mg Pantoprazole Sodium (Protonix Tab*) 40 mg PO DAILY@0600 [facility] Last Admin: 08/25/18 06:29 Dose: Not Given Pharmacy Consult (Zosyn Per Pharmacy*) 1 note FOLLOW UP .ZOSYN PER PHARMACY [facility] Pharmacy Consult (Vancomycin Per Pharmacy*) 1 note FOLLOW UP .VANC PER PHARMACY [facility] Polyethyl Glycol/Propylene Glycol (Lubricant Eye Drops) 1 drop BOTH EYES TID PRN PRN Reason: DRY EYE Physical Exam: Constitutional: awake, alert, tachypneic++, in resp distress, not diaphoretic Head: normocephalic, atraumatic Eyes: no pallor, no icterus ENT: moist mucous membranes Neck: soft, supple, no jvd, no stridor CVS: tachycardic, regular, no murmur Respiratory: bilateral air entry, rhales but improved Right>, no wheeze, no rhonchi, no acc muscle use Abdomen: soft, nontender, nondistended, BS+ Ext: pulses+, warm, no edema Skin: intact, warm Neuro: awake, alert, moving all ext, oriented 2-3x Labs: Laboratory Results - last 24 hr 08/22/18 08/24/18 08/24/18 15:50 05:05 17:47 WBC RBC Hgb Hct MCV MCH MCHC RDW Plt Count MPV Neut % (Auto) Lymph % (Auto) [place] % (Auto) Eos % (Auto) Baso % (Auto) Absolute Neuts (auto) Absolute Lymphs (auto) Absolute Monos (auto) Absolute Eos (auto) Absolute Basos (auto) Absolute Nucleated RBC Neutrophils % Lymphocytes % Monocytes % Nucleated RBC % Abs Neuts (Manual) Abs Lymphs (Manual) Abs Monocytes (Manual) Differential Comment Dohle Bodies Normal RBC Morphology Hem Pathologist Commnt Sodium Potassium Chloride Carbon Dioxide Anion Gap BUN Creatinine Est GFR ( Amer) Est GFR (Non-Af Amer) BUN/Creatinine Ratio Glucose POC Glucose (mg/dL) 178 H Calcium Phosphorus Magnesium Total Bilirubin Direct Bilirubin Indirect Bilirubin AST ALT Alkaline Phosphatase Total Protein Albumin Globulin Albumin/Globulin Ratio Procalcitonin 1.2 H Vancomycin Trough 08/24/18 08/25/18 08/25/18 20:31 06:09 06:10 WBC 12.5 H RBC 2.69 L Hgb 8.5 L Hct 27 L MCV 100 H MCH 32 H MCHC 32 RDW 19 H Plt Count 158 MPV 11.0 H Neut % (Auto) Not Reportable Lymph % (Auto) Not Reportable [place] % (Auto) Not Reportable Eos % (Auto) Not Reportable Baso % (Auto) Not Reportable Absolute Neuts (auto) Not Reportable Absolute Lymphs (auto) Not Reportable Absolute Monos (auto) Not Reportable Absolute Eos (auto) Not Reportable Absolute Basos (auto) Not Reportable Absolute Nucleated RBC Not Reportable Neutrophils % 84 Lymphocytes % 13 Monocytes % 3 Nucleated RBC % Not Reportable Abs Neuts (Manual) 10.6 H Abs Lymphs (Manual) 1.6 Abs Monocytes (Manual) 0.4 Differential Comment Dohle Bodies Present Normal RBC Morphology Normal Hem Pathologist Commnt Sodium 142 Potassium 3.2 L Chloride 113 H Carbon Dioxide 18 L Anion Gap 11 BUN 36 H Creatinine 1.37 H Est GFR ( Amer) 59.5 Est GFR (Non-Af Amer) 49.2 BUN/Creatinine Ratio 26.3 H Glucose 154 H POC Glucose (mg/dL) 174 H Calcium 6.7 L Phosphorus 1.8 L Magnesium 2.1 Total Bilirubin 0.90 Direct Bilirubin 0.30 H Indirect Bilirubin 0.6 AST 45 H ALT 21 Alkaline Phosphatase 38 Total Protein 5.0 L Albumin 2.5 L Globulin 2.5 Albumin/Globulin Ratio 1.0 Procalcitonin Vancomycin Trough 08/25/18 08/25/18 07:53 10:30 WBC RBC Hgb Hct MCV MCH MCHC RDW Plt Count MPV Neut % (Auto) Lymph % (Auto) [place] % (Auto) Eos % (Auto) Baso % (Auto) Absolute Neuts (auto) Absolute Lymphs (auto) Absolute Monos (auto) Absolute Eos (auto) Absolute Basos (auto) Absolute Nucleated RBC Neutrophils % Lymphocytes % Monocytes % Nucleated RBC % Abs Neuts (Manual) Abs Lymphs (Manual) Abs Monocytes (Manual) Differential Comment Dohle Bodies Normal RBC Morphology Hem Pathologist Commnt Sodium Potassium Chloride Carbon Dioxide Anion Gap BUN Creatinine Est GFR ( Amer) Est GFR (Non-Af Amer) BUN/Creatinine Ratio Glucose POC Glucose (mg/dL) 155 H Calcium Phosphorus Magnesium Total Bilirubin Direct Bilirubin Indirect Bilirubin AST ALT Alkaline Phosphatase Total Protein Albumin Globulin Albumin/Globulin Ratio Procalcitonin Vancomycin Trough 21.1 Imaging: cxr 08/22 - RUL consolidation cxr 08/23 - RUL and RLL consolidation+; mild left side congestion, better than yesterday? 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 Initiall noted to be hypoxic 83% on 2 L. He stated to them he was more SOB, but also noted to be confused by staff. Oxygen increased, temp noted 100.5, tachycardic 110, tachypneic 20-30s. Sepsis protocol ordered, given 1 L NS. Started on Empiric IV abx, found to be Influenza A positive, started on tamiflu. CXR initially demonstrated RUL consolidation+. He improved initially and admitted to medical floor. He was noted to be febrile 102.9 later. 08/22- admitted for hypoxia, pneumonia, sepsis tx started, now in pulm edema 08/23 - no sig changes 08/24 - rapid afib, increased resp distress, remains on pressors and NIV -Acute Hypercapneic and Hypoxic respiratory failure 08/22 -Severe Sepsis / -Multilobar Right Upper/lower pneumonia 07/14 to Influenza A+ -Pulmonary Congestion mild -Acute on chronic decompensated LV diastolic heart failure -Severe Sepsis with Shock -Delirium 2/2 to sepsis -JAYME -Afib with RVR Past Pseudomonas endocarditis, completed tx Plan: Neuro- stable/improved mental status; likely metabolic/hypoperfusion as cause -asp prec, delirium prec CVS- -SHock 2/2 to sepsis; off carey and levophed -urine output lower; CXR with infltrates, CVP 4-5 -start 1/2 NS 75cc/hr -rapid afib with RVR; rate controlled and in NSR; cont dig daily, check level daily tomorrow; d/c ami infusion -cont apixiban; if hematuria worsened, will d/c, will need urology followup later -IV abx Resp- -hypoxia and hypercapnea better; remains tachpneic from progressive pneumonia -50% fio2 on NIV; if improved will trial HFNC but doubt it yet given work of breathing -CXR 08/25 with stable/improved Right multilobar consolidation++ -sputum culture if able -noted DNR/DNI; critically ill; discussed with both Sons, they are aware, reassessing day by day for improvement/worsening, they are cautiously waiting on change -IV abx for influenza and for HCAP coverage ID- tmax 100.8, downtrending again to 99s. WBC dec 18 ->12 -CXR 08/25 multilobar consolidation++ on right -Influenza A+; Tamiflu 30mg PO BID (day#4) -Empiric HCAP therapy also given critical illness; cont zosyn (day#4); vanco random 21; hold today, check tomorrow and cont, no sputum sample yet, but remains febrile intermittently, will continue (day#4) GI- NPO on NIV, cannot take po, NGT will risk aspiration but can trial PO liquids. aspiration prec. GI proph Renal- -JAYME; Cr slight increase, likely from diuresis yesterday, neg balance yesterday -hold further lasix; start IVF 1/2 NS 75cc/hr -replete IV KCl and IV Kphos today -mild metabolic acidosis+ -pressor support continued -hematuria again mild, monitoring Heme- hg stable 8-9, monitor trend; check h/h tonight 6pm -plt stable - apixiban for Afib AC ; may have to stop Endo- Maintain BG<200, insulin protocol as needed. -cont synthroid for hypothryoidism Musculsk- pressure ulcer prophylaxis. Bedrest. Wounds- none Nutrition- trial of fluids DVT prophylaxis: apixiban ; SCD GI prophylaxis: ppi Central Line: [facility] 08/22 placed Arterial Line: no [place] Cathetor: yes Disposition: Patient requires Critical Care/ICU for septic shock, acute hypoxic /hypercap resp failure req NIV, Influenza A pneumonia, acute on chr decompensated heart failure exaccerbation Patient Clinical Status: some improvement but labile/unstable, critical Code Status: DNR/DNI Total Critical Care time is 45 minutes, excluding procedures/teaching Stefan Ash MD Nutrition Aides Teacher (Electronically Signed)
[2018-08-25] MEDS: KCL 20 MEQ/100 ML IVPREMIX* 20 MEQ/100 ML BAG IV SCH ×2 (12:53→14:09)
[2018-08-25] MEDS: Oseltamivir SUSP* ORALSYR 6 MG/ML PO SCH ×2 (12:54→23:14)
[2018-08-25] MEDS: Vancomycin(*) 1,000 MG in NS 0.9% 250 ML* 250 ML IVPB SCH (14:29)
[2018-08-25] MEDS: Morphine 4 MG/ML VIAL (1 ml) 4 MG/ML VIAL IV PRN (15:08)
[2018-08-25] MEDS: Metoprolol Tartrate IV* 1 MG/ML 5 ML VIAL IV PRN (15:36)
[2018-08-25 18:20] LABS: Hematocrit 28 % (36-46); Hemoglobin 8.8 g/dL (14.0-18.0)
[2018-08-25] MEDS: Melatonin 3 MG TAB PO SCH (23:14)
[2018-08-26] MEDS: Metoprolol Tartrate IV* 1 MG/ML 5 ML VIAL IV PRN ×2 (00:14→14:01)
[2018-08-26] MEDS: Morphine 4 MG/ML VIAL (1 ml) 4 MG/ML VIAL IV PRN ×4 (00:22→20:12)
[2018-08-26] MEDS: Vancomycin(*) 1,000 MG in NS 0.9% 250 ML* 250 ML IVPB SCH ×2 (02:44→13:45)
[2018-08-26] MEDS: Albuterol/Ipratropium NEB.SOL* Albuterol 2.5 MG/Ipratropium 0.5 MG 3 ML INH SCH ×5 (03:44→19:46)
[2018-08-26] MEDS: Pantoprazole IV* 40 MG IV SCH (05:46)
[2018-08-26] MEDS: ZOSYN 3.375 GM Q8H per EXTENDED INFUSION IVPB SCH ×6 (05:46→23:42)
[2018-08-26] MEDS ORDERED: Levothyroxine INJ* 100 MCG in D5W 250 ML BAG* 250 ML IV SCH ×2 (06:00→09:00)
[2018-08-26 06:12] LABS: Hematocrit 28 % (36-46); Hemoglobin 8.9 g/dL (14.0-18.0); Mean Corpuscular HGB Conc 32 g/dL (31-36); Mean Corpuscular Hemoglobin 32 pg (27-31); Mean Corpuscular Volume 102 fL (80-94); Mean Platelet Volume 11.7 fL (7.4-10.4); Platelet Count 169 10^3/uL (150-450); Red Blood Count 2.78 10^6 /uL (4.18-5.48); Red Cell Distribution Width 19 % (10.5-15); White Blood Count 15.9 10^3/uL (3.5-10.8)
[2018-08-26 06:33] LABS: BUN/Creatinine Ratio 29.7 (8-20); Calcium 6.7 mg/dL (8.6-10.3); EGFR African American 44.8 (>60); EGFR Non-African American 37.1 (>60); Magnesium 2.2 mg/dL (1.9-2.7); Potassium 4.4 mmol/L (3.5-5.0)
[2018-08-26 06:38] LABS: ABS Basophils 0.1 10^3/ul (0-0.2); ABS Eosinophils 0 10^3/ul (0-0.6); ABS Lymphocytes 1.8 10^3/ul (1.0-4.8); ABS Monocytes 1.1 10^3/ul (0-0.8); ABS Neutrophils 12.8 10^3/ul (1.5-7.7); ABS Nucleated RBC 0.2 10^3/ul
[2018-08-26 06:41] LABS: Immature Granulocytes 2 % (0-9); Lymphocytes % 14 %; Monocytes % 9 %; Myelocytes % 1 % (0-1); Neutrophil % 75 %; Nucleated Red Blood Cells/100 1 (0-0)
[2018-08-26 06:44] LABS: ABS Neutrophils 12.2 10^3/ul (1.5-7.7)
[2018-08-26 06:45] LABS: Digoxin 1.7 ng/ml (0.8-2.0)
[2018-08-26] MEDS: Apixaban* 2.5 MG TAB PO SCH (07:55)
[2018-08-26] MEDS: Cyanocobalamin TAB* 500 MCG PO SCH (07:55)
[2018-08-26] MEDS: Ascorbic Acid TAB* 500 MG PO SCH (07:55)
[2018-08-26] MEDS: Ferrous Sulfate TAB* 325 MG PO SCH (07:56)
[2018-08-26] MEDS: Lactobacillus Acidophilus* 1 TAB PO SCH ×2 (08:00→19:37)
[2018-08-26] MEDS: guaiFENesin ER TAB 600 MG PO SCH ×2 (08:00→19:37)
[2018-08-26] MEDS: Gabapentin CAP(*) 100 MG PO SCH ×2 (08:00→19:37)
[2018-08-26] MEDS: Levothyroxine INJ* 100 MCG/5 ML VIAL IV SCH (08:36)
[2018-08-26] MEDS: Insulin LISPRO* 1 UNITS UNIT SUBCUT SCH ×4 (08:36→23:32)
[2018-08-26] MEDS ORDERED: LEVOTHYROXINE IV SCH (09:00)
[2018-08-26] MEDS ORDERED: Heparin DRIP 25,000 UNITS(*) 25,000 UNITS/500 ML BAG IV SCH (09:00)
[2018-08-26] MEDS ORDERED: D5W IV SCH (09:00)
[2018-08-26] MEDS ORDERED: Digoxin IV* 0.5 MG/2 ML AMP (0.25 MG/ML) IV SLOW PU ONE (09:12)
[2018-08-26] MEDS: Vancomycin(*) 750 MG in NS 0.9% 250 ML* 250 ML IVPB SCH (09:33)
[2018-08-26] MEDS: Atorvastatin* 10 MG TAB PO SCH (09:37)
[2018-08-26] MEDS: Oseltamivir SUSP* ORALSYR 6 MG/ML PO SCH ×2 (09:38→19:37)
[2018-08-26] MEDS: Folic Acid TAB* 1 MG PO SCH (09:38)
[2018-08-26] MEDS: D5W 1000 ML BAG* 1,000 ML IV SCH ×2 (09:40→09:41)
[2018-08-26] MEDS ORDERED: D5W 1000 ML BAG* 1,000 ML IV SCH (12:05)
--- NOTE | 2018-08-26 12:08 | PN ---
Progress Note - Progress Note Date of Service: 08/26/18 Note: Progress Note -- Critical Care 24 hour events -oon NIV 70% now, increased overnight; still remains tachypneic but awake/alert -denies cough/sob/cp -tmax 99, now afebrile again -making urine -HR controlled; off amio; remains off pressors -started on IVhpearin this morning -granddaughter at bedside, questions answered Tele: NSR Vitals: Vital Signs Temp 98.3 F 08/26/18 08:00 Pulse 101 08/26/18 11:20 Resp 34 08/26/18 10:01 BP 106/56 08/26/18 10:00 Pulse Ox 95 08/26/18 10:01 Intake & Output 08/25/18 08/26/18 08/26/18 18:59 06:59 18:59 Intake Total 1208.2 1576 Output Total 485 0 Balance 723.2 1576 Weight 63.911 kg Intake: IV Fluids 194 820 NS (0.9%) 194 820 IVPB 100 756 ABX - VANCOMYCIN 541 ABX - ZOSYN 100 215 Medicated IV 514.2 amiodarone 437 kphos 77.2 Oral 400 Output: Urine 0 [place] 485 Other: Estimated Void Medium # Voids 1 O2/Vent: NIV 25/01 70% Infusions: IV heparin; d5w 75cc/hr Current Medications: Acetaminophen (Tylenol Tab*) 650 mg PO Q6H PRN PRN Reason: FEVER/PAIN Last Admin: 08/24/18 05:41 Dose: 650 mg Albuterol/Ipratropium (Duoneb (Albuterol 2.5 Mg/Ipratropium 0.5 Mg)) 1 neb INH [id number] AWAKE [facility] Ascorbic Acid (Vitamin C Tab*) 500 mg PO DAILY [facility] Last Admin: 08/26/18 07:55 Dose: Not Given Atorvastatin Calcium (Lipitor*) 10 mg PO DAILY [facility] Last Admin: 08/26/18 09:37 Dose: Not Given Benzonatate (Tessalon Cap*) 100 mg PO Q8HR PRN PRN Reason: COUGH Cyanocobalamin (Vitamin B12 Tab*) 1,000 mcg PO DAILY [facility] Last Admin: 08/26/18 07:55 Dose: Not Given Dextrose (D50w Syringe 50 Ml*) 12.5 gm IV PUSH .FOR FS < 60 - SS PRN PRN Reason: FS < 60 Docusate Sodium (Colace Cap*) 100 mg PO BID PRN PRN Reason: CONSTIPATION Ferrous Sulfate (Ferrous Sulfate Tab*) 325 mg PO DAILY [facility] Last Admin: 08/26/18 07:56 Dose: Not Given Folic Acid (Folvite Tab*) 1 mg PO DAILY [facility] Last Admin: 08/26/18 09:38 Dose: Not Given Gabapentin (Neurontin Cap(*)) 100 mg PO BID [facility] Last Admin: 08/26/18 08:00 Dose: Not Given Guaifenesin (Mucinex*) 600 mg PO BID [facility] Last Admin: 08/26/18 08:00 Dose: Not Given Piperacillin Sod/Tazobactam (Sod 3.375 gm/ Sodium Chloride) 100 mls @ 25 mls/ hr IVPB Q8H [facility] Last Admin: 08/26/18 05:46 Dose: 25 mls/hr Vancomycin HCl 1,000 mg/ (Sodium Chloride) 250 mls @ 166.667 mls/hr IVPB Q12H [facility] Last Admin: 08/26/18 02:44 Dose: 166.667 mls/hr Heparin Sodium/Dextrose (Heparin Drip 25,000 Units(*)) 25,000 units in 500 mls @ 0 mls/hr IV PER RATE [facility]; Protocol Dextrose (D5w 1000 Ml Bag*) 1,000 mls @ 75 mls/hr IV PER RATE [facility] Insulin Human Lispro (Humalog*) 0 units SUBCUT ACHS [facility]; Protocol Last Admin: 08/26/18 08:36 Dose: 1 units Lactobacillus Rhamnosus (Lactobacillus Acidophilus*) 2 tab PO BID [facility] Last Admin: 08/26/18 08:00 Dose: Not Given Levothyroxine Sodium (Synthroid Inj*) 50 mcg IV 0900 [facility] Last Admin: 08/26/18 08:36 Dose: 50 mcg Melatonin (Melatonin) 3 mg PO BEDTIME [facility] Last Admin: 08/25/18 23:14 Dose: Not Given Metoprolol Tartrate (Lopressor Iv*) 5 mg IV Q6H PRN PRN Reason: HR>100 Last Admin: 08/26/18 00:14 Dose: 5 mg Morphine Sulfate (Morphine Vial*) 2 mg IV Q4H PRN PRN Reason: respiratory distress Last Admin: 08/26/18 08:37 Dose: 2 mg Oseltamivir Phosphate (Tamiflu Susp* Oralsyr) 30 mg PO BID [facility] Stop: 08/27/18 09:01 Last Admin: 08/26/18 09:38 Dose: Not Given Pantoprazole Sodium (Protonix Iv*) 40 mg IV Q24H [facility] Last Admin: 08/26/18 05:46 Dose: 40 mg Pharmacy Consult (Zosyn Per Pharmacy*) 1 note FOLLOW UP .ZOSYN PER PHARMACY [facility] Pharmacy Consult (Vancomycin Per Pharmacy*) 1 note FOLLOW UP .VANC PER PHARMACY [facility] Pharmacy Profile Note (Vancomycin Trough Check) 1 note FOLLOW UP ONCE ONE Stop: 08/27/18 13:31 Polyethyl Glycol/Propylene Glycol (Lubricant Eye Drops) 1 drop BOTH EYES TID PRN PRN Reason: DRY EYE Physical Exam: Constitutional: awake, alert, tachypneic++, in mild resp distress, not diaphoretic Head: normocephalic, atraumatic Eyes: no pallor, no icterus ENT: moist mucous membranes Neck: soft, supple, no jvd, no stridor CVS: tachycardic, regular, no murmur Respiratory: bilateral air entry, rhales Right>, mild on left, no wheeze, no rhonchi, no acc muscle use Abdomen: soft, nontender, nondistended, BS+ Ext: pulses+, warm, no edema Skin: intact, warm Neuro: awake, alert, moving all ext, oriented 2-3x Labs: Laboratory Results - last 24 hr 08/25/18 08/25/18 08/25/18 07:53 12:24 16:54 WBC RBC Hgb Hct MCV MCH MCHC RDW Plt Count MPV Neut % (Auto) Lymph % (Auto) Phelps % (Auto) Eos % (Auto) Baso % (Auto) Absolute Neuts (auto) Absolute Lymphs (auto) Absolute Monos (auto) Absolute Eos (auto) Absolute Basos (auto) Absolute Nucleated RBC Immature Gran % Neutrophils % Band Neutrophils % Lymphocytes % Monocytes % Myelocytes % Nucleated RBC % Abs Neuts (Manual) Abs Lymphs (Manual) Abs Monocytes (Manual) Nucleated RBCs/100 WBC Normal RBC Morphology Hypochromasia Anisocytosis Macrocytosis APTT Sodium Potassium Chloride Carbon Dioxide Anion Gap BUN Creatinine Est GFR ( Amer) Est GFR (Non-Af Amer) BUN/Creatinine Ratio Glucose POC Glucose (mg/dL) 155 H 149 H 95 Calcium Magnesium Digoxin 08/25/18 08/25/18 08/26/18 18:10 21:06 05:55 WBC RBC Hgb 8.8 L Hct 28 L MCV MCH MCHC RDW Plt Count MPV Neut % (Auto) Lymph % (Auto) Phelps % (Auto) Eos % (Auto) Baso % (Auto) Absolute Neuts (auto) Absolute Lymphs (auto) Absolute Monos (auto) Absolute Eos (auto) Absolute Basos (auto) Absolute Nucleated RBC Immature Gran % Neutrophils % Band Neutrophils % Lymphocytes % Monocytes % Myelocytes % Nucleated RBC % Abs Neuts (Manual) Abs Lymphs (Manual) Abs Monocytes (Manual) Nucleated RBCs/100 WBC Normal RBC Morphology Hypochromasia Anisocytosis Macrocytosis APTT Sodium 145 Potassium 4.4 Chloride 117 H Carbon Dioxide 15 L Anion Gap 13 H BUN 52 H Creatinine 1.75 H Est GFR ( Amer) 44.8 Est GFR (Non-Af Amer) 37.1 BUN/Creatinine Ratio 29.7 H Glucose 160 H POC Glucose (mg/dL) 142 H Calcium 6.7 L Magnesium 2.2 Digoxin 1.7 08/26/18 08/26/18 05:55 09:48 WBC 15.9 H RBC 2.78 L Hgb 8.9 L Hct 28 L MCV 102 H MCH 32 H MCHC 32 RDW 19 H Plt Count 169 MPV 11.7 H Neut % (Auto) Not Reportable Lymph % (Auto) Not Reportable Phelps % (Auto) Not Reportable Eos % (Auto) Not Reportable Baso % (Auto) Not Reportable Absolute Neuts (auto) 12.8 H Absolute Lymphs (auto) 1.8 Absolute Monos (auto) 1.1 H Absolute Eos (auto) 0 Absolute Basos (auto) 0.1 Absolute Nucleated RBC 0.2 Immature Gran % 2 Neutrophils % 75 Band Neutrophils % 1 Lymphocytes % 14 Monocytes % 9 Myelocytes % 1 Nucleated RBC % Not Reportable Abs Neuts (Manual) 12.2 H Abs Lymphs (Manual) 2.2 Abs Monocytes (Manual) 1.4 H Nucleated RBCs/100 WBC 1 H Normal RBC Morphology Not Reportable Hypochromasia 1+ Anisocytosis 2+ Macrocytosis 2+ APTT 39.9 H Sodium Potassium Chloride Carbon Dioxide Anion Gap BUN Creatinine Est GFR ( Amer) Est GFR (Non-Af Amer) BUN/Creatinine Ratio Glucose POC Glucose (mg/dL) Calcium Magnesium Digoxin Microbiology 08/22/18 08:44 Aerobic Blood Culture - Preliminary Blood Venous No Growth Day 4 Anaerobic Blood Culture - Preliminary No Growth Day 4 08/22/18 08:30 Aerobic Blood Culture - Preliminary Blood Venous No Growth Day 4 Anaerobic Blood Culture - Preliminary No Growth Day 4 Imaging: cxr 08/22 - RUL consolidation cxr 08/23 - RUL and RLL consolidation+; mild left side congestion, better than yesterday? 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 Initiall noted to be hypoxic 83% on 2 L. He stated to them he was more SOB, but also noted to be confused by staff. Oxygen increased, temp noted 100.5, tachycardic 110, tachypneic 20-30s. Sepsis protocol ordered, given 1 L NS. Started on Empiric IV abx, found to be Influenza A positive, started on tamiflu. CXR initially demonstrated RUL consolidation+. He improved initially and admitted to medical floor. He was noted to be febrile 102.9 later. 08/22- admitted for hypoxia, pneumonia, sepsis tx started, now in pulm edema 08/23 - no sig changes 08/24 - rapid afib, increased resp distress, remains on pressors and NIV 08/25- stable, no change, off pressors -Acute Hypercapneic and Hypoxic respiratory failure 08/22 -Severe Sepsis 2/2 -Multilobar Right Upper/lower pneumonia 2/2 to Influenza A+ -Pulmonary Congestion mild -Acute on chronic decompensated LV diastolic heart failure -Severe Sepsis with Shock -Delirium 2/2 to sepsis -JAYME -Afib with RVR Past Pseudomonas endocarditis, completed tx Plan: Neuro- stable mental status; likely metabolic/hypoperfusion as cause of earlier delirium -asp prec, delirium prec CVS- -SHock 2/2 to sepsis, resolved; off pressors -urine output lower than ebfore; off IVF and diuretics -noted increased congestion on cxr; but he has elevated Na and Cl and Cr -will start low dose d5w -trial lasix 20mg IV x1 dose today -rapid afib with RVR; rate controlled and in NSR now; dig leve okay. off amio. -unable to take PO, change apixiban to IV heparin for Afib AC -IV abx Resp- -hypoxia and hypercapnea better; remains tachpneic from progressive pneumonia -CXr 08/26 worse bilateral congestion/infiltrates -70% fio2 on NIV; does not tolerate off, may trial HFNC but doubt he will tolerate -sputum culture if able -noted DNR/DNI; critically ill; discussed with both Sons, they are aware, reassessing day by day for improvement/worsening, they are cautiously waiting on change. May need to discuss with Sons today, discussed wiht granddaughter, plan for another 1-2 days?? Patient alert, may need ot decide on his wishes. -IV abx for influenza and for HCAP coverage ID- tmax 99. WBC 12->15 -CXR 08/26 multilobar consolidation++ on right; congestion on left now vs pneumonia? -Influenza A+; Tamiflu 30mg PO BID (day#5), cont to extend longer duration of tx given severe influenza pneumonia -Empiric HCAP therapy also given critical illness; cont zosyn (day#5); Off vanc ; total of 4 days given GI- NPO on NIV, cannot take po, patient refusing NGT placement. Keep trying for some liquid nutrition if possible if he can go to HFNC. aspiration prec. GI proph Renal- -JAYME; Cr increase, likely from diuresis ? -elevated na and Cl; check urine lytes -start d5w; lasix 20mg IV again to trial -K okay, mild aciodsis+ suspected from renal insuff. -check LA -no sig hematuria; tinged Heme- hg stable 8-9, monitor trend -plt stable - IV heparin for Afib AC Endo- Maintain BG<200, insulin protocol as needed. -cont synthroid for hypothryoidism Musculsk- pressure ulcer prophylaxis. Bedrest. Wounds- none Nutrition- trial of fluids DVT prophylaxis: IV heparin ; SCD GI prophylaxis: ppi Central Line: LIJ 08/22 placed Arterial Line: no [place] Cathetor: yes Disposition: Patient requires Critical Care/ICU for septic shock, acute hypoxic /hypercap resp failure req NIV, Influenza A pneumonia, acute on chr decompensated heart failure exaccerbation Patient Clinical Status: labile/unstable, critical Code Status: DNR/DNI Total Critical Care time is 45 minutes, excluding procedures/teaching Stefan Ash MD Associate Professor Of Chemistry (Electronically Signed)
[2018-08-26] MEDS ORDERED: Furosemide IV* 10 MG/ML 2 ML VIAL (20 MG) IV ONE (12:19)
--- NOTE | 2018-08-26 16:29 | PN ---
Progress Note - Progress Note Date of Service: 08/26/18 Note: at length discussion with Son at bedside we discussed current progress, worsening resp status, possible progression of pneumonia to left lung also hemodyn stable now, but there is JAYME noted we discussed his DNR/DNI status, feeding and he brought up intubation. we discussed trial of intubation as an option with any further worsening of resp status. With intubation, he would be sedated, given time to heal and improve infiltrates if possible We discussed sedation, extubation/weaning and deconditioning and weakness post critical care illness. All these were address in the grand scheme of things and his overall condition and status the past few months. Given her overall status, they understood he would be worse off and probably need rehab and need to come back to a baseline of where he was days back. He will discuss with his other family memebers and options, including comfort measures, awaiting another 48-72 hours to see resp status as well as trial of intubation, knowing his previous decisions were for DNR/DNI, but a trial would be considered by family . Will followup and have likely ahve decision later tonight or tomorrow. Potential need for intubation if worsening in the next 24 hours. Stefan Ash Md Advanced Practice Provider
[2018-08-26] MEDS: Melatonin 3 MG TAB PO SCH (19:37)
[2018-08-27] MEDS: Albuterol/Ipratropium NEB.SOL* Albuterol 2.5 MG/Ipratropium 0.5 MG 3 ML INH SCH ×3 (00:47→13:36)
[2018-08-27] MEDS: Vancomycin(*) 1,000 MG in NS 0.9% 250 ML* 250 ML IVPB SCH ×2 (02:15→13:35)
[2018-08-27 05:53] LABS: Hematocrit 29 % (36-46); Hemoglobin 8.8 g/dL (14.0-18.0); Mean Corpuscular HGB Conc 31 g/dL (31-36); Mean Corpuscular Hemoglobin 31 pg (27-31); Mean Corpuscular Volume 101 fL (80-94); Mean Platelet Volume 12.4 fL (7.4-10.4); Platelet Count 159 10^3/uL (150-450); Red Blood Count 2.83 10^6 /uL (4.18-5.48); Red Cell Distribution Width 18 % (10.5-15); White Blood Count 17.4 10^3/uL (3.5-10.8)
[2018-08-27] MEDS: Pantoprazole IV* 40 MG IV SCH (06:00)
[2018-08-27] MEDS: ZOSYN 3.375 GM Q8H per EXTENDED INFUSION IVPB SCH ×4 (06:00→13:17)
[2018-08-27 06:15] LABS: BUN/Creatinine Ratio 26.7 (8-20); Calcium 6.5 mg/dL (8.6-10.3); EGFR African American 36.3 (>60); Magnesium 2.1 mg/dL (1.9-2.7)
[2018-08-27 06:20] LABS: ABS Basophils 0.1 10^3/ul (0-0.2); ABS Eosinophils 0 10^3/ul (0-0.6); ABS Lymphocytes 1.9 10^3/ul (1.0-4.8); ABS Monocytes 2.1 10^3/ul (0-0.8); ABS Neutrophils 13.3 10^3/ul (1.5-7.7); ABS Nucleated RBC 0 10^3/ul
[2018-08-27 06:30] LABS: Myelocytes % 1 % (0-1)
[2018-08-27 06:33] LABS: Immature Granulocytes 1 % (0-9); Lymphocytes % 21 %; Monocytes % 8 %; Neutrophil % 70 %; Nucleated Red Blood Cells/100 2 (0-0)
[2018-08-27 06:34] LABS: Platelet Morphology Large
[2018-08-27 06:36] LABS: ABS Neutrophils 12.18 10^3/ul (1.5-7.7)
[2018-08-27] MEDS: Ascorbic Acid TAB* 500 MG PO SCH (07:56)
[2018-08-27] MEDS: Ferrous Sulfate TAB* 325 MG PO SCH (07:57)
[2018-08-27] MEDS: guaiFENesin ER TAB 600 MG PO SCH (07:57)
[2018-08-27] MEDS: Oseltamivir SUSP* ORALSYR 6 MG/ML PO SCH (07:57)
[2018-08-27] MEDS: Gabapentin CAP(*) 100 MG PO SCH (07:57)
[2018-08-27] MEDS: Folic Acid TAB* 1 MG PO SCH (07:57)
[2018-08-27] MEDS: Atorvastatin* 10 MG TAB PO SCH (07:57)
[2018-08-27] MEDS: Lactobacillus Acidophilus* 1 TAB PO SCH (07:57)
[2018-08-27] MEDS: Cyanocobalamin TAB* 500 MCG PO SCH (07:57)
[2018-08-27] MEDS: Insulin LISPRO* 1 UNITS UNIT SUBCUT SCH ×2 (09:16→13:13)
[2018-08-27] MEDS: Morphine 4 MG/ML VIAL (1 ml) 4 MG/ML VIAL IV PRN (10:03)
[2018-08-27] MEDS ORDERED: Morphine 4 MG/ML VIAL (1 ml) 4 MG/ML VIAL IV PRN (13:10)
[2018-08-27] MEDS ORDERED: LORazepam INJ* 2 MG/ML 1 ML VIAL IV PUSH PRN (13:11)
[2018-08-27] MEDS: Levothyroxine INJ* 100 MCG/5 ML VIAL IV SCH (13:17)
[2018-08-27] MEDS ORDERED: Vancomycin Trough Check NOTE FOLLOW UP ONE (13:30)
[2018-08-27 15:11] VITALS: BP 71/28
--- NOTE | 2018-08-27 17:34 | PN ---
Date of Service: 08/27/18 Critical Care Services: -Patient seen and examined at the bedside - He was on BIPAP with increased WOB -spoke to son and discussed the concept of comfort care. Son was open to trying low dose of morphine and BZD but wanted to continue care to help prolong patient's life to reunion with patient's son and daughter later that evening Vital Signs: Temp Pulse Resp BP SpO2 FiO2 97.8 F 79 20 71/28 69 80 08/27/18 11:50 08/27/18 15:01 08/27/18 15:31 08/27/18 15:00 08/27/18 15:01 08/27 13:46 Physical Exam: Constitutional: awake, alert, tachypneic++, with increased WOB Head: normocephalic, atraumatic Eyes: no pallor, no icterus ENT: moist mucous membranes Neck: soft, supple, no jvd, no stridor CVS: tachycardic, regular, no murmur Respiratory: bilateral air entry, coarse breath sounds bilaterally, no wheezes Ext: pulses+, warm, no edema Skin: intact, warm Neuro: awake, alert, moving all ext, oriented 2-3x Fluid Balance (Past 24 Hours): I= O= Net Intake & Output 08/25/18 08/26/18 08/27/18 08/28/18 06:59 06:59 06:59 06:59 Intake Total 948 2784.2 527.0 1921 Output Total 3090 485 Balance -2142 2299.2 527.0 1921 Weight 138 lb 7.205 oz 140 lb 14.4 oz 141 lb 1.533 oz Intake: IV Fluids 340 1014 69.9 715 ABX - VANCOMYCIN 245 ABX - ZOSYN 15.1 D5W 606 NS (0.9%) 95 1014 54.8 109 IVPB 268 856 827 ABX - VANCOMYCIN 260 541 280 ABX - ZOSYN 8 315 Misc 547 Medicated IV 340 514.2 358.7 379 CC - Norepinephrine/ 178 Levophed CC - Phenylephrine/ 162 Neosynephrine amiodarone 437 d5w 327 hePARIN 31.7 379 kphos 77.2 Heparin 98.4 Oral 0 400 0 Output: Urine 0 [place] 3090 485 Other: Estimated Void Medium Medium Medium Small Estimated Stool Amount Large Large # Voids 1 1 1 1 ADLs: Meal Record Start: 08/22/18 13: 58 Freq: DAILY@0900,1400,1800 Status: Inactive Protocol: Created 08/22/18 13:58 System (Rec: 08/22/18 13:58 System TELE-C08) ADLs: Meal Record Start: 08/22/18 15: 39 Freq: 09,13,18 Status: Discharge Protocol: Created 08/22/18 15:39 MAZ1423 (Rec: 08/22/18 15:39 [id number] ICU-C16) Document 08/23/18 09:00 KAL5543 (Rec: 08/23/18 09:33 JLC7627 ICU-C15) Document 08/23/18 13:00 OMP3305 (Rec: 08/23/18 13:48 JPO9994 ICU-C15) Document 08/23/18 18:00 CUZ4368 (Rec: 08/23/18 18:19 XQN0730 ICU-C15) Document 08/25/18 10:15 YWR5080 (Rec: 08/25/18 10:48 QMC5755 ICU-M27) Document 08/26/18 13:00 HYZ3917 (Rec: 08/26/18 13:39 [id number] ICU-M27) Document 08/27/18 09:00 HBP2045 (Rec: 08/27/18 09:15 KCY1631 ICU-M27) Document 08/27/18 13:45 CLK5262 (Rec: 08/27/18 13:45 QLI5382 ICU-C25) Intake and Output Start: 08/22/18 07: 40 Freq: Status: Discharge Protocol: Created 08/22/18 07:40 System (Rec: 08/22/18 07:40 System EDRM-C18) Intake and Output Start: 08/22/18 13: 58 Freq: DAILY@0600,1400,2200 Status: Inactive Protocol: Created 08/22/18 13:58 System (Rec: 08/22/18 13:58 System TELE-C08) Intake and Output Start: 08/22/18 15: 39 Freq: 06,14,2200 Status: Discharge Protocol: Created 08/22/18 15:39 [id number] (Rec: 08/22/18 15:39 OED4119 ICU-C16) Document 08/22/18 16:34 EEC4513 (Rec: 08/22/18 16:34 JGT3389 ICU-M27) Document 08/22/18 18:00 ZEX3379 (Rec: 08/22/18 18:37 YBJ1356 ICU-C16) Document 08/22/18 20:17 XQB7855 (Rec: 08/22/18 20:17 KLJ2597 ICU-C12) Document 08/22/18 22:00 GKG1094 (Rec: 08/22/18 22:53 BMW2355 ICU-C12) Document 08/22/18 22:51 HNB1479 (Rec: 08/22/18 22:53 ZKD8315 ICU-C12) Document 08/23/18 00:05 TGX3135 (Rec: 08/23/18 00:06 AAR2699 ICU-C12) Document 08/23/18 01:00 PFT9149 (Rec: 08/23/18 01:18 TML3743 ICU-C12) Document 08/23/18 02:05 QFS4004 (Rec: 08/23/18 02:18 RNO6120 ICU-C12) Document 08/23/18 03:13 MIY1257 (Rec: 08/23/18 03:13 KLY3619 ICU-C12) Document 08/23/18 04:00 KQU9149 (Rec: 08/23/18 04:02 ZYD3045 ICU-C12) Document 08/23/18 06:00 LCE6449 (Rec: 08/23/18 06:13 JQP3223 ICU-C12) Document 08/23/18 07:00 TLD2723 (Rec: 08/23/18 07:27 SRN0864 ICU-C15) Document 08/23/18 08:00 UOO1283 (Rec: 08/23/18 09:32 CRJ7805 ICU-C15) Document 08/23/18 09:00 YGQ3867 (Rec: 08/23/18 09:33 QNX6978 ICU-C15) Document 08/23/18 10:00 KJU1206 (Rec: 08/23/18 10:10 FPZ0268 ICU-C15) Document 08/23/18 11:00 PJU9441 (Rec: 08/23/18 11:05 XAO1855 ICU-C15) Document 08/23/18 12:00 VKL5657 (Rec: 08/23/18 13:31 QSW3038 ICU-M27) Document 08/23/18 13:00 ZGQ5464 (Rec: 08/23/18 13:48 WOG1650 ICU-C15) Document 08/23/18 14:00 HRA4229 (Rec: 08/23/18 14:26 DKW3815 ICU-C15) Document 08/23/18 15:00 KFG2183 (Rec: 08/23/18 15:35 YPL8959 ICU-C15) Document 08/23/18 16:00 GPZ0733 (Rec: 08/23/18 16:59 YCZ4029 ICU-C15) Document 08/23/18 17:00 GHS1175 (Rec: 08/23/18 17:02 KBM1448 ICU-C15) Document 08/23/18 18:00 JCN1105 (Rec: 08/23/18 18:19 KVG7565 ICU-C15) Document 08/23/18 19:54 QTF2951 (Rec: 08/23/18 19:54 VNX9169 ICU-M27) Document 08/23/18 22:00 FPS9849 (Rec: 08/23/18 22:46 YSK6969 ICU-L03) Document 08/23/18 23:00 VFW5310 (Rec: 08/23/18 23:06 OJB1970 ICU-L03) Document 08/24/18 01:00 RKS7902 (Rec: 08/24/18 01:23 TKW9731 ICU-L03) Document 08/24/18 02:00 HVK9959 (Rec: 08/24/18 02:06 YNF4473 ICU-M27) Document 08/24/18 03:00 BVL9650 (Rec: 08/24/18 03:24 MDW4824 ICU-L03) Document 08/24/18 04:00 OEX7578 (Rec: 08/24/18 04:29 QMT2692 ICU-L03) Document 08/24/18 05:39 CDU6348 (Rec: 08/24/18 05:39 WDQ3369 ICU-M27) Document 08/24/18 06:00 XKN4539 (Rec: 08/24/18 06:07 PTH0802 ICU-L03) Document 08/24/18 06:26 EKL1997 (Rec: 08/24/18 06:26 MTI2872 ICU-L03) Document 08/24/18 07:00 DMQ1854 (Rec: 08/24/18 08:14 NJV9446 ICU-C12) Document 08/24/18 08:00 MCF8119 (Rec: 08/24/18 08:41 UVL3378 ICU-M27) Document 08/24/18 08:42 UHL1100 (Rec: 08/24/18 08:42 TEI8610 ICU-M27) Document 08/24/18 09:22 LTJ6437 (Rec: 08/24/18 09:22 TEN0773 ICU-M27) Document 08/24/18 10:00 UTQ1704 (Rec: 08/24/18 11:42 LJW5981 ICU-C12) Document 08/24/18 11:00 NUK4507 (Rec: 08/24/18 11:42 JSW4408 ICU-C12) Document 08/24/18 11:14 LOF4719 (Rec: 08/24/18 11:43 WQZ6747 ICU-C12) Document 08/24/18 12:00 ISB0155 (Rec: 08/24/18 13:29 GOT5015 ICU-C12) Document 08/24/18 13:00 ERV7421 (Rec: 08/24/18 15:23 YAA3395 ICU-C12) Document 08/24/18 15:00 GSS2682 (Rec: 08/24/18 15:23 MBV1710 ICU-C12) Document 08/24/18 16:00 XAX9487 (Rec: 08/24/18 16:59 EKW5910 ICU-C12) Document 08/24/18 17:00 YXT5332 (Rec: 08/24/18 19:35 XVW3458 ICU-C12) Document 08/24/18 18:00 FRR4336 (Rec: 08/24/18 19:35 JNL9473 ICU-C12) Document 08/24/18 20:00 QHL5356 (Rec: 08/24/18 20:14 WGF2866 ICU-C16) Document 08/24/18 21:00 XXE1264 (Rec: 08/24/18 21:21 LEI3809 ICU-M27) Document 08/24/18 22:29 XLZ0261 (Rec: 08/24/18 22:29 HFX6294 ICU-C16) Document 08/25/18 00:00 DGU2820 (Rec: 08/25/18 02:53 DXP2649 ICU-C12) Document 08/25/18 03:00 OEB8939 (Rec: 08/25/18 03:26 HXB2544 ICU-C10) Document 08/25/18 04:00 TZK4804 (Rec: 08/25/18 04:35 BNI6110 ICU-C10) Document 08/25/18 05:00 ZND5870 (Rec: 08/25/18 06:32 BIN3368 ICU-C10) Document 08/25/18 06:00 TGQ7745 (Rec: 08/25/18 06:37 XCE6865 ICU-C10) Document 08/25/18 07:00 KRC4771 (Rec: 08/25/18 08:00 EBY4266 ICU-M27) Document 08/25/18 08:00 FHC8667 (Rec: 08/25/18 08:00 NQJ3429 ICU-M27) Document 08/25/18 09:00 ABL2775 (Rec: 08/25/18 10:27 FOY7322 ICU-M27) Document 08/25/18 10:00 OWR4485 (Rec: 08/25/18 10:27 BMS3526 ICU-M27) Document 08/25/18 10:55 BYD7261 (Rec: 08/25/18 10:56 XRI6892 ICU-M27) Document 08/25/18 12:00 QVI3662 (Rec: 08/25/18 13:06 CYI6993 ICU-M22) Document 08/25/18 13:00 UAF1837 (Rec: 08/25/18 13:06 BLW2103 ICU-M22) Document 08/25/18 14:00 XKE2203 (Rec: 08/25/18 15:05 OTD2161 ICU-C12) Document 08/25/18 15:17 GYS0044 (Rec: 08/25/18 15:17 NTA8607 ICU-M27) Document 08/25/18 15:54 XJB5795 (Rec: 08/25/18 15:54 WTL2610 ICU-M27) Document 08/25/18 17:01 LIY8435 (Rec: 08/25/18 17:01 TEK3906 ICU-M27) Document 08/25/18 18:00 OCJ6326 (Rec: 08/25/18 18:14 NTZ3086 ICU-M27) Document 08/25/18 19:00 VUW9356 (Rec: 08/25/18 19:37 KQJ9188 ICU-M27) Document 08/25/18 20:00 KXM9650 (Rec: 08/25/18 22:28 LYP1925 ICU-C12) Document 08/25/18 21:00 UUW2276 (Rec: 08/25/18 22:28 UXE5179 ICU-C12) Document 08/26/18 00:00 TPT2335 (Rec: 08/26/18 00:10 MSU3496 ICU-C12) Document 08/26/18 03:03 NKA4087 (Rec: 08/26/18 03:03 MJS6052 ICU-C12) Document 08/26/18 03:50 PTW2146 (Rec: 08/26/18 04:03 WTS9965 ICU-C12) Document 08/26/18 13:39 VQG8247 (Rec: 08/26/18 13:40 HBH7246 ICU-M27) Document 08/26/18 19:08 LGB4413 (Rec: 08/26/18 19:08 LGV0902 ICU-M27) Document 08/26/18 22:03 HPD2608 (Rec: 08/26/18 22:03 GLL8570 ICU-C07) Document 08/27/18 00:00 JIH9446 (Rec: 08/27/18 02:49 QJX4202 ICU-C25) Document 08/27/18 03:38 CCH2113 (Rec: 08/27/18 03:47 ISL0740 ICU-C25) Document 08/27/18 10:31 NJH9862 (Rec: 08/27/18 10:31 LVO4078 ICU-C25) Document 08/27/18 14:26 TFO6967 (Rec: 08/27/18 14:26 XEX5146 ICU-C25) Labs: Laboratory Results - last 24 hr 08/25/18 08/26/18 08/26/18 06:09 05:55 15:47 WBC RBC Hgb Hct MCV MCH MCHC RDW Plt Count MPV Neut % (Auto) Lymph % (Auto) Stanton % (Auto) Eos % (Auto) Baso % (Auto) Absolute Neuts (auto) Absolute Lymphs (auto) Absolute Monos (auto) Absolute Eos (auto) Absolute Basos (auto) Absolute Nucleated RBC Immature Gran % Neutrophils % Band Neutrophils % Lymphocytes % Monocytes % Myelocytes % Nucleated RBC % Abs Neuts (Manual) Abs Lymphs (Manual) Abs Monocytes (Manual) Nucleated RBCs/100 WBC Platelet Morphology Normal RBC Morphology Hypochromasia Anisocytosis Hem Pathologist Commnt APTT Sodium Potassium Chloride Carbon Dioxide Anion Gap BUN Creatinine Est GFR ( Amer) Est GFR (Non-Af Amer) BUN/Creatinine Ratio Glucose POC Glucose (mg/dL) 214 H Calcium Magnesium Vancomycin Trough 08/26/18 08/26/18 08/27/18 17:20 23:26 02:09 WBC RBC Hgb Hct MCV MCH MCHC RDW Plt Count MPV Neut % (Auto) Lymph % (Auto) Stanton % (Auto) Eos % (Auto) Baso % (Auto) Absolute Neuts (auto) Absolute Lymphs (auto) Absolute Monos (auto) Absolute Eos (auto) Absolute Basos (auto) Absolute Nucleated RBC Immature Gran % Neutrophils % Band Neutrophils % Lymphocytes % Monocytes % Myelocytes % Nucleated RBC % Abs Neuts (Manual) Abs Lymphs (Manual) Abs Monocytes (Manual) Nucleated RBCs/100 WBC Platelet Morphology Normal RBC Morphology Hypochromasia Anisocytosis Hem Pathologist Commnt APTT 83.0 H 80.0 H Sodium Potassium Chloride Carbon Dioxide Anion Gap BUN Creatinine Est GFR ( Amer) Est GFR (Non-Af Amer) BUN/Creatinine Ratio Glucose POC Glucose (mg/dL) 204 H Calcium Magnesium Vancomycin Trough 08/27/18 08/27/18 08/27/18 05:31 05:31 08:07 WBC 17.4 H RBC 2.83 L Hgb 8.8 L Hct 29 L MCV 101 H MCH 31 MCHC 31 RDW 18 H Plt Count 159 MPV 12.4 H Neut % (Auto) Not Reportable Lymph % (Auto) Not Reportable Stanton % (Auto) Not Reportable Eos % (Auto) Not Reportable Baso % (Auto) Not Reportable Absolute Neuts (auto) 13.3 H Absolute Lymphs (auto) 1.9 Absolute Monos (auto) 2.1 H Absolute Eos (auto) 0 Absolute Basos (auto) 0.1 Absolute Nucleated RBC 0 Immature Gran % 1 Neutrophils % 70 Band Neutrophils % Not Reportable Lymphocytes % 21 Monocytes % 8 Myelocytes % 1 Nucleated RBC % Not Reportable Abs Neuts (Manual) 12.18 H Abs Lymphs (Manual) 3.65 Abs Monocytes (Manual) 1.39 H Nucleated RBCs/100 WBC 2 H Platelet Morphology Large Normal RBC Morphology Not Reportable Hypochromasia 1+ Anisocytosis 2+ Hem Pathologist Commnt APTT Sodium 144 Potassium 4.0 Chloride 117 H Carbon Dioxide 18 L Anion Gap 9 BUN 56 H Creatinine 2.10 H Est GFR ( Amer) 36.3 Est GFR (Non-Af Amer) 30.0 BUN/Creatinine Ratio 26.7 H Glucose 185 H POC Glucose (mg/dL) 179 H Calcium 6.5 L Magnesium 2.1 Vancomycin Trough 08/27/18 08/27/18 08/27/18 11:50 12:10 12:10 WBC RBC Hgb Hct MCV MCH MCHC RDW Plt Count MPV Neut % (Auto) Lymph % (Auto) Stanton % (Auto) Eos % (Auto) Baso % (Auto) Absolute Neuts (auto) Absolute Lymphs (auto) Absolute Monos (auto) Absolute Eos (auto) Absolute Basos (auto) Absolute Nucleated RBC Immature Gran % Neutrophils % Band Neutrophils % Lymphocytes % Monocytes % Myelocytes % Nucleated RBC % Abs Neuts (Manual) Abs Lymphs (Manual) Abs Monocytes (Manual) Nucleated RBCs/100 WBC Platelet Morphology Normal RBC Morphology Hypochromasia Anisocytosis Hem Pathologist Commnt APTT 72.3 H Sodium Potassium Chloride Carbon Dioxide Anion Gap BUN Creatinine Est GFR ( Amer) Est GFR (Non-Af Amer) BUN/Creatinine Ratio Glucose POC Glucose (mg/dL) 251 H Calcium Magnesium Vancomycin Trough 37.2 H* Impression: -Acute Hypercapneic and Hypoxic respiratory failure 08/22 -Severe Sepsis 2/2 -Multilobar Right Upper/lower pneumonia 2/2 to Influenza A+ -Pulmonary Congestion mild -Acute on chronic decompensated LV diastolic heart failure -Severe Sepsis with Shock -Delirium 2/2 to sepsis -JAYME -Afib with RVR Past Pseudomonas endocarditis, completed tx Plan: - All modality of care was continued including antibiotics, bronchodilators, and BIPAP - Per son, [place] patient was continued on morphine at 2 mg IV q2h prn and started on ativan 1 mg IV q2h prn - patient continued to have increased WOB on BIPAP with hypotension, desaturations, and bradycardia -at 15:36 patient went into asystole and comfortable. - Son, pastors x 2, and cousin at bedside No autopsy requested Critical Care Time: 45 minutes
[2018-08-28] MEDS ORDERED: ZOSYN 3.375 GM Q8H per EXTENDED INFUSION IVPB SCH ×2 (02:00)
[2018-08-28] MEDS ORDERED: Vancomycin Random Level* NOTE FOLLOW UP ONE (06:00)
== END 2018-08-27 15:36 | disposition expired | DRG 871 ==
LOC: ED 07:29 → MEDTELE 12:17 → ICU 14:55
PROVIDERS: ADMIT Internal Medicine; ATTEND Internal Medicine Pulmonary Disease
PROC: 05HN33Z Insertion of Infusion Device into Left Internal Jugular Vein, Percutaneous Approach (ICD-10-PCS; principal; 2018-08-22)
PROC: B544ZZA Ultrasonography of Left Jugular Veins, Guidance (ICD-10-PCS; 2018-08-22)
PROC: 3E033XZ Introduction of Vasopressor into Peripheral Vein, Percutaneous Approach (ICD-10-PCS; 2018-08-22)
PROC: 5A09357 Assistance with Respiratory Ventilation, Less than 24 Consecutive Hours, Continuous Positive Airway Pressure (ICD-10-PCS; 2018-08-27)
DX: A41.9 Sepsis, unspecified organism (principal); J96.01 Acute respiratory failure with hypoxia; J96.02 Acute respiratory failure with hypercapnia; J10.08 Influenza due to other identified influenza virus with other specified pneumonia; R65.21 Severe sepsis with septic shock; I50.33 Acute on chronic diastolic (congestive) heart failure; E87.1 Hypo-osmolality and hyponatremia; F05 Delirium due to known physiological condition; J44.1 Chronic obstructive pulmonary disease with (acute) exacerbation; J44.0 Chronic obstructive pulmonary disease with (acute) lower respiratory infection; N17.9 Acute kidney failure, unspecified; D64.9 Anemia, unspecified; E87.6 Hypokalemia; E83.42 Hypomagnesemia; Z51.5 Encounter for palliative care; I46.9 Cardiac arrest, cause unspecified; R31.9 Hematuria, unspecified; E11.9 Type 2 diabetes mellitus without complications; I25.10 Atherosclerotic heart disease of native coronary artery without angina pectoris; K21.9 Gastro-esophageal reflux disease without esophagitis; N40.0 Benign prostatic hyperplasia without lower urinary tract symptoms; K86.9 Disease of pancreas, unspecified; I48.2 Chronic atrial fibrillation; E03.9 Hypothyroidism, unspecified; Z66 Do not resuscitate; I11.0 Hypertensive heart disease with heart failure; F03.90 Unspecified dementia, unspecified severity, without behavioral disturbance, psychotic disturbance, mood disturbance, and anxiety; H54.62 Unqualified visual loss, left eye, normal vision right eye; Z96.0 Presence of urogenital implants; H91.90 Unspecified hearing loss, unspecified ear; Z86.73 Personal history of transient ischemic attack (TIA), and cerebral infarction without residual deficits; Z98.42 Cataract extraction status, left eye; Z87.442 Personal history of urinary calculi; Z97.4 Presence of external hearing-aid; Z98.41 Cataract extraction status, right eye; Z82.49 Family history of ischemic heart disease and other diseases of the circulatory system; Z95.1 Presence of aortocoronary bypass graft; Z95.2 Presence of prosthetic heart valve
CPT/HCPCS: 36415; 36600; 71045; 71046; 80048; 80053; 80076; 80162; 80202; 81003; 81015; 82803; 82947; 83605; 83735; 83880; 84100; 84145; 84443; 84484; 85014; 85018; 85025; 85060; 85610; 85730; 86140; 87040; 87086; 87641; 93005; 94640; 94660; 99285; A9270-GY; G9019; J0282; J0744; J1160; J1940; J2060; J2270; J2543; J3370; J3475; J3480; J3490